=== PATIENT | male | born 1945 | race Caucasian/White ===

== ENCOUNTER 2017-06-01 06:10 | Inpatient (IN) | payer MEDICARE ==
[2017-06-01] MEDS ORDERED: PNEUMONIA PROTOCOL UTILIZED 1 EACH MISC PO PRN (06:24)
[2017-06-01] MEDS ORDERED: LEVOFLOXACIN 750MG-D5W PMX 750 MG in DEXTROSE/WATER 1 150ML.BAG IVPB STA (06:24)
--- NOTE | 2017-06-01 06:24 | ED ---
General Adult HPI - General Chief complaint: Shortness of Breath Stated complaint: cough, pneumonia Time Seen by Provider: 06/01/17 06:10 Source: patient, EMS, RN notes reviewed Mode of arrival: EMS Limitations: no limitations - History of Present Illness Initial comments: This is a 71-year-old male who presents to the emergency department from [facility]. Patient went in today because of difficulty breathing over the last month. Patient states he had no chest pain or palpitations. At the breathing seems to have gotten worse especially with exertion patient states had a temperature at home and he has been coughing considerably more recently. Patient denies any abdominal pain patient denies nausea vomiting diarrhea. The physician at [facility] stated the patient was in new onset A. fib with rapid ventricular response he also stated there was mild congestive heart failure and pneumonia on the x-ray. - Related Data Allergies Allergy/AdvReac Type Severity Reaction Status Date / Time No Known Allergies Allergy Verified 06/01/17 06:17 Review of Systems ROS Statement: Those systems with pertinent positive or pertinent negative responses have been documented in the HPI. ROS Other: All systems not noted in ROS Statement are negative. Past Medical History Additional Past Medical History / Comment(s): chron's disease. History of Any Multi-Drug Resistant Organisms: None Reported Past Surgical History: Hernia Repair, Tonsillectomy Additional Past Surgical History / Comment(s): lithotripsy, deviated septum, Past Psychological History: No Psychological Hx Reported Smoking Status: Former smoker Past Alcohol Use History: None Reported Past Drug Use History: None Reported General Exam - General Exam Comments Initial Comments: GENERAL: Patient is well-developed and well-nourished. Patient is nontoxic and well- hydrated and is in mild distress. ENT: Neck is soft and supple. No significant lymphadenopathy is noted. Oropharynx is clear. Moist mucous membranes. Neck has full range of motion without eliciting any pain. EYES: The sclera were anicteric and conjunctiva were pink and moist. Extraocular movements were intact and pupils were equal round and reactive to light. Eyelids were unremarkable. PULMONARY: Patient has a slight expiratory wheeze with some faint crackles at the bases. CARDIOVASCULAR: Patient is tachycardic. ABDOMEN: Soft and nontender with normal bowel sounds. No palpable organomegaly was noted. There is no palpable pulsatile mass. SKIN: Skin is clear with no lesions or rashes and otherwise unremarkable. NEUROLOGIC: Patient is alert and oriented x3. Cranial nerves II through XII are grossly intact. Motor and sensory are also intact. Normal speech, volume and content. Symmetrical smile. MUSCULOSKELETAL: Normal extremities with adequate strength and full range of motion. Scant edema of the legs. LYMPHATICS: No significant lymphadenopathy is noted PSYCHIATRIC: Normal psychiatric evaluation. Normal interpersonal interactions appears functionally intact in deals appropriately with others. Limitations: no limitations Course Vital Signs 06/01/17 06:10 Temperature 97.9 F Pulse Rate 99 Respiratory 20 Rate Blood Pressure 129/85 O2 Sat by Pulse 95 Oximetry Medical Decision Making - Medical Decision Making EKG shows sinus tachycardia with occasional PACs 114 bpm NC interval is on a 54 QRS is 86 QT interval 344 QTC is 474. I spoke with Dr. Martinez he agreed to admit the patient admitted the patient wrote admitting orders Disposition Clinical Impression: Congestive heart failure, Atrial fibrillation with rapid ventricular response, Pneumonia Disposition: ADMITTED IP TO THIS HOSP Referrals: Mauricio Keith MD [Primary Care Provider] - 1-2 days Time of Disposition: 06:20
[2017-06-01] MEDS ORDERED: ONDANSETRON 4 MG/2 ML VIAL IVP PRN (07:48)
[2017-06-01] MEDS ORDERED: MELATONIN 3 MG TABLET PO PRN (09:25)
[2017-06-01] MEDS ORDERED: ACETAMINOPHEN TAB 325 MG TAB PO PRN (09:25)
[2017-06-01] MEDS ORDERED: ALBUTEROL NEBULIZED 2.5 MG/3 ML INHALATION PRN (09:27)
[2017-06-01] MEDS ORDERED: RX INFO: IV CONTRAST WAS GIVEN 1 EACH MISC MISCELLANE PRN (09:57)
[2017-06-01] MEDS: DOXAZOSIN 4 MG TAB PO SCH ×2 (10:04→21:06)
[2017-06-01] MEDS: ASPIRIN 81 MG PO SCH (10:04)
[2017-06-01] MEDS: BALSALAZIDE DISODIUM 750 MG CAPSULE PO SCH ×3 (10:09→21:07)
--- NOTE | 2017-06-01 10:37 | P.CRDCN ---
History of Present Illness Consult date: 06/01/17 Requesting physician: Madhav Huertas Consult reason: atrial fibrillation, congestive heart failure Chief complaint: Shortness of breath History of present illness: This is a pleasant 71-year-old gentleman with no prior documented history of hypertension, no diabetes, no hyperlipidemia, nonsmoker, rare EtOH, history of Crohn's disease and enlarged prostate, who states as an outpatient he 's been dealing with symptoms of shortness of breath, fever, and productive cough of yellow sputum. He has gone to see his primary care physician as an outpatient, and has been on 2 courses of antibiotics along with steroids. In spite of this patient continues to feel short of breath, continues to have a productive cough as well as fever. For this reason he presented to [facility]. White blood cell count on arrival here 4.8, hemoglobin 11.5 , platelet count 153. Sodium 136, potassium 3.7, BUN 12, creatinine 1.0, magnesium 1.5. Troponin 0.03, BNP elevated at 7250. Chest x-ray performed at [facility] did show some congestive heart failure. Patient had an EKG performed [facility] which showed atrial fibrillation with a rapid ventricular response. According to the patient, he has no prior documented history of atrial fibrillation. EKG on arrival here shows normal sinus rhythm, sinus tachycardia with PACs. Blood pressure 128/80, heart rate in the 90s, 95% on room air. Afebrile. No labs were performed here. At the time of my examination this morning, patient has a nonrebreather on, he is satting 95%. Still appears to be quite short of breath. Continues to have productive cough. Past Medical History Past Medical History: Hearing Disorder / Deafness, Hypertension, Prostate Disorder, Renal Disease Additional Past Medical History / Comment(s): Chron's, nephrolithiasis, bilateral tinnitis, BPH, past HTN but none since wt loss. History of Any Multi-Drug Resistant Organisms: None Reported Past Surgical History: Hernia Repair, Tonsillectomy Additional Past Surgical History / Comment(s): lithotripsy, deviated septum, colonoscopies, umbilical and inguinal hernia repairs (laterality unknown). Past Anesthesia/Blood Transfusion Reactions: No Reported Reaction Smoking Status: Former smoker - Past Family History Father Family Medical History: Cancer, Congestive Heart Failure (CHF) Additional Family Medical History / Comment(s): Father had prostrate cancer. Mother Family Medical History: CVA/TIA Additional Family Medical History / Comment(s): Mother of a CVA at the age of 53yrs. Medications and Allergies Home Medications Medication Instructions Recorded Confirmed Type Albuterol Sulfate [Proair Hfa] 1 - 2 puff INHALATION RT-Q6H PRN 06/01/17 History Aspirin 81 mg PO DAILY 06/01/17 06/01/17 History Cholecalciferol (Vitamin D3) 2,000 unit PO DAILY 06/01/17 06/01/17 History [Vitamin D3] Codeine Phosphate/Guaifenesin 5 - 10 ml PO Q6H PRN 06/01/17 06/01/17 History [Cheratussin AC Syrup] Cyanocobalamin (Vitamin B-12) 2,000 mcg PO DAILY 06/01/17 06/01/17 History [Vitamin B-12] Doxazosin Mesylate [Doxazosin 4 mg PO BID 06/01/17 06/01/17 History Mesylate] Mesalamine [Pentasa] 1,000 mg PO QID 06/01/17 06/01/17 History Multivitamin [Men's Multi-Vitamin] 1 tab PO DAILY 06/01/17 06/01/17 History Soolantra 1 applic TOPICAL DAILY 06/01/17 06/01/17 History Allergies Allergy/AdvReac Type Severity Reaction Status Date / Time No Known Allergies Allergy Verified 06/01/17 06:51 Physical Exam Vitals: Vital Signs Temp Pulse Resp BP Pulse Ox 06/01/17 06:10 97.9 F 99 20 129/85 95 Intake and Output 05/31/17 06/01/17 06/01/17 22:59 06:59 14:59 Other: Weight 83.915 kg PHYSICAL EXAMINATION: HEENT: Head is atraumatic, normocephalic. Pupils equal, round. Neck is supple. There is elevated jugular venous pressure. HEART EXAMINATION: Heart S1, S2 normal. No murmur or gallop heard. CHEST EXAMINATION: Lungs reveal diminished air entry to bilateral bases, Rales noted to the bases. ABDOMEN: Soft, nontender. Bowel sounds are heard. No organomegaly noted. EXTREMITIES: 2+ peripheral pulses with no evidence of peripheral edema and no calf tenderness noted. NEUROLOGIC patient is awake, alert and oriented -3. . Results Current Medications Generic Name Dose Route Start Last Admin Trade Name Freq PRN Reason Stop Dose Admin Acetaminophen 650 mg 06/01/17 09:25 Tylenol Tab PO Q6HR PRN Mild Pain or Fever > 100.5 Hydrocodone Bitart/Acetaminophen 1 each 06/01/17 09:25 [place] 5-325 PO Q4HR PRN Moderate Pain Albuterol Sulfate 2.5 mg 06/01/17 09:27 Ventolin Nebulized INHALATION RT-QID PRN Shortness Of Breath Or Wheezing Albuterol/Ipratropium 3 ml 06/01/17 12:00 Duoneb 0.5 Mg-3 Mg/3 Ml Soln INHALATION RT-QID CHERYL Aspirin 81 mg 06/01/17 09:00 06/01/17 10:04 Aspirin PO 81 mg DAILY CHERYL Administration Balsalazide 2,250 mg 06/01/17 09:00 06/01/17 10:09 Colazal PO 2,250 mg TID [facility] Administration Cholecalciferol 2,000 unit 06/01/17 12:00 Vitamin D3 PO 1200 [facility] Cyanocobalamin 2,000 mcg 06/01/17 12:00 Vitamin B-12 PO 1200 [facility] Doxazosin Mesylate 4 mg 06/01/17 09:00 06/01/17 10:04 Cardura PO 4 mg BID [facility] Administration Enoxaparin Sodium 40 mg 06/02/17 09:00 Lovenox SQ DAILY [facility] Furosemide 20 mg 06/01/17 09:00 Lasix IV Q12HR [facility] Guaifenesin/Codeine Phosphate 10 ml 06/01/17 09:59 Robitussin Ac PO Q6H PRN Cough Levofloxacin 750 mg/ IV 150 mls @ 100 mls/hr 06/02/17 07:00 Solution IVPB 06/14/17 07:01 Q24H [facility] Melatonin 3 mg 06/01/17 09:25 Melatonin PO HS PRN Insomnia Methylprednisolone Sodium Succinate 40 mg 06/01/17 10:00 Solu-Medrol IV Q8HR [facility] Miscellaneous Information 1 each 06/01/17 06:24 Pneumonia Protocol Utilized PO ONCE PRN Per Protocol Miscellaneous Information 1 each 06/01/17 09:57 Rx Info: Iv Contrast Was Given MISCELLANE 06/03/17 09:59 DAILY PRN Per Protocol Multivitamins 1 each 06/01/17 12:00 Theragran PO 1200 CHERYL Ondansetron HCl 4 mg 06/01/17 07:48 06/01/17 08:03 Zofran IVP 4 mg Q6HR PRN Administration Nausea And Vomiting Pantoprazole Sodium 40 mg 06/02/17 07:30 Protonix PO AC-BRKFST CHERYL Intake and Output 05/31/17 06/01/17 06/01/17 22:59 06:59 14:59 Other: Weight 83.915 kg EKG Interpretations (text) Initial EKG at [facility] shows atrial fibrillation with rapid ventricular response. Repeat EKG performed on arrival here shows a sinus tachycardia. Assessment and Plan Plan: Assessment and plan #1 symptoms of progressively worsening shortness of breath, with associated productive cough of yellow sputum and fever, likely combination of possible tracheal bronchitis/pneumonia and congestive heart failure. LV function unknown. Chest x-ray [facility] shows congestive heart failure. BNP level in the 7000 range. #2 paroxysmal atrial fibrillation, currently in normal sinus rhythm. #3 Crohn's disease Plan We will obtain an echocardiogram with Doppler study. Patient is also currently on IV Lasix which we will continue. We will start the patient on a low-dose of beta billy. Further recommendations to follow. DNP note has been reviewed, I agree with a documented findings and plan of care. Patient was seen and examined.
--- NOTE | 2017-06-01 11:05 | P.PN ---
Progress Note - Text This is an addendum to the dictated cardiology consultation. The patient has no prior cardiac history and presented to [facility] emergency room with symptoms of progressive dyspnea. He was noted to be in atrial fibrillation and had findings consistent with CHF was an elevated BNP and an abnormal chest x-ray. He had recent upper respiratory infection and received 2 courses of antibiotics and steroids and in spite of that he had worsening dyspnea and persistent cough. He was not aware of the arrhythmia. He has no prior history of documented atrial fibrillation and he is back in sinus mechanism since presentation. He has no prior cardiac workup. He denies any history of PND, orthopnea or peripheral edema. He is quite active physically without any limitations. He has no significant cardiac risk factors and has not smoked in many years. His physical examination shows decrease air exchange, is in sinus mechanism and he has trace bilateral edema more noted on the right side. The patient presents with worsening dyspnea was findings consistent with CHF and paroxysmal atrial fibrillation. His symptoms may have been precipitated by an upper respiratory infection although the possibility of viral myocarditis cannot be totally excluded. An echocardiogram with Doppler will be obtained, beta billy will be added to his regimen and we will continue diuresis for 24 hours intravenously. Because of the symptoms of CHF and his age I would initiate treatment with anticoagulation. Depending on the results of his echo and the results of his workup the duration of anticoagulation would be further evaluated. Thank you for this consult we will follow with you.
[2017-06-01] MEDS: METOPROLOL TARTRATE 25 MG TAB PO SCH ×2 (11:15→21:06)
[2017-06-01] MEDS: methylPREDNISolone SOD SUCCI 40 MG/ML 1 ML VIAL IV SCH ×3 (11:15→23:59)
[2017-06-01] MEDS: FUROSEMIDE 10 MG/ML 2 ML VIAL IV SCH ×2 (11:15→21:06)
--- NOTE | 2017-06-01 12:42 | CT ---
EXAMINATION TYPE: CT chest angio for PE DATE OF EXAM: 06/01/2017 COMPARISON: Outside chest x-ray from earlier today HISTORY: SOB for [address] DLP: 581 mGycm. Automated Exposure Control for Dose Reduction was Utilized. CONTRAST: CTA scan of the thorax is performed with IV Contrast, patient injected with 100 mL of Isovue 370, pul monary embolism protocol. MIP Images are created on CT scanner and reviewed. FINDINGS: LUNGS: Moderate underlying emphysematous change is present most prominent in the apices. There are sm all bilateral pleural effusions confirmed. There is associated compressive atelectasis in both bases. Elevated left hemidiaphragm is redemonstrated. There is mild to moderate central peribronchial wall thickening likely product of underlying COPD. MEDIASTINUM: There is slightly suboptimal study, there is good opacification centrally without fillin g defect or embolism. There is poor flow of contrast involving segmental and subsegmental branches of the left lower lobe, PE cannot be excluded at this level. Visualized right lung and left upper lobe shows no evidence of pulmonary embolism . There are multiple enlarged thoracic lymph nodes including prevascular space, AP window, pericarinal, subcarinal, and bilateral hilar levels. Heart size is mild ly enlarged. No pericardial effusion is seen. OTHER: There is simple appearing 3.0 cm cyst posteriorly in the left kidney mid pole level axial imag e 151. There is moderate multilevel anterior and lateral spurring in the thoracic spine. Exaggerated thoracic kyphosis is noted. IMPRESSION: 1. Suboptimal evaluation of left lower lobe segmental and subsegmental branches otherwise no CT evide nce for pulmonary embolism. 2. Background of mild to moderate underlying emphysematous change. Correlate for CHF exacerbation as there is mild cardiomegaly with small bilateral pleural effusions. 3. Abnormal thoracic adenopathy, differential includes sarcoidosis, other granulomatous disease, and neoplasm such as lymphoma. Need to further investigate by bronchoscopy or PET/CT should be based on c linical correlation.
[2017-06-01] MEDS: CYANOCOBALAMIN 500 MCG TAB PO SCH (12:52)
[2017-06-01] MEDS: MULTIVITAMINS, THERA 1 EACH TAB PO SCH (12:52)
[2017-06-01] MEDS: CHOLECALCIFEROL 1,000 UNIT TAB PO SCH (12:52)
[2017-06-01] MEDS: IPRATROPIUM-ALBUTEROL 3 ML NEB INHALATION SCH ×3 (13:57→20:37)
--- NOTE | 2017-06-01 14:17 | P.HPIM ---
History of Present Illness H&P Date: 06/01/17 Chief Complaint: Shortness of breath Patient is a 71-year-old male with a past medical history of BPH, neuropathy, Crohn's disease, and nephrolithiasis who presented initially to [facility] with complaints of shortness of breath. There he underwent extensive evaluation. His found to be tachycardic on arrival in EKG showed A. fib with RVR. Initial laboratory analysis was unremarkable. On chest x-ray he was diagnosed with pneumonia. He was given a dose of antibiotics and metoprolol 5 mg IV push. Arrangements were made to transfer him here for cardiology evaluation. Repeat EKG here in the ER showed sinus tachycardia with PACs. Patient seen and examined at bedside. He complains of shortness of breath. He initially states it started a month ago and he was diagnosed with bronchitis. His PCP Dr. Ronen Keith put him on 2 courses of antibiotics and steroids. He felt much improved but never really returned back to baseline. He states that shortness of breath has been increasing. It is worse with exertion and better with rest. He had a fever last night at home with 102.4. He has a cough productive of yellow sputum. He has been coughing so hard he gets nauseous. He denies any overt chest pain but states it is sore when he takes a deep breath. He denies any palpitations. He has not fainted or passed out. Has not started or stopped any additional medications. He has chronic diarrhea related to his Crohn's disease. His also reports that he has episodes of apnea at night. He has no other complaints currently. His appetite has been decreased since last 3-4 days due to feeling fatigued. He denies any numbness or tingling down his arms or up in his jaw, he has not had any diaphoresis, he has not had any unusual headaches or changes in vision. He has had no strokelike symptoms. Review of Systems Pertinent positives and negatives as per HPI, remainder of 10 review of systems is negative. Past Medical History Past Medical History: Hearing Disorder / Deafness, Hypertension, Prostate Disorder, Renal Disease Additional Past Medical History / Comment(s): Chron's, nephrolithiasis, bilateral tinnitis, BPH, past HTN but none since wt loss. History of Any Multi-Drug Resistant Organisms: None Reported Past Surgical History: Hernia Repair, Tonsillectomy Additional Past Surgical History / Comment(s): lithotripsy, deviated septum, colonoscopies, umbilical and inguinal hernia repairs (laterality unknown). Past Anesthesia/Blood Transfusion Reactions: No Reported Reaction Smoking Status: Former smoker - Past Family History Father Family Medical History: Cancer, Congestive Heart Failure (CHF) Additional Family Medical History / Comment(s): Father had prostrate cancer. Mother Family Medical History: CVA/TIA Additional Family Medical History / Comment(s): Mother of a CVA at the age of 53yrs. Medications and Allergies Home Medications Medication Instructions Recorded Confirmed Type Albuterol Sulfate [Proair Hfa] 1 - 2 puff INHALATION RT-Q6H PRN 06/01/17 History Aspirin 81 mg PO DAILY 06/01/17 06/01/17 History Cholecalciferol (Vitamin D3) 2,000 unit PO DAILY 06/01/17 06/01/17 History [Vitamin D3] Codeine Phosphate/Guaifenesin 5 - 10 ml PO Q6H PRN 06/01/17 06/01/17 History [Cheratussin AC Syrup] Cyanocobalamin (Vitamin B-12) 2,000 mcg PO DAILY 06/01/17 06/01/17 History [Vitamin B-12] Doxazosin Mesylate [Doxazosin 4 mg PO BID 06/01/17 06/01/17 History Mesylate] Mesalamine [Pentasa] 1,000 mg PO QID 06/01/17 06/01/17 History Multivitamin [Men's Multi-Vitamin] 1 tab PO DAILY 06/01/17 06/01/17 History Soolantra 1 applic TOPICAL DAILY 06/01/17 06/01/17 History Allergies Allergy/AdvReac Type Severity Reaction Status Date / Time No Known Allergies Allergy Verified 06/01/17 06:51 Physical Exam Osteopathic Statement: *. No significant issues noted on an osteopathic structural exam other than those noted in the History and Physical/Consult. Vitals: Vital Signs Temp Pulse Resp BP Pulse Ox 06/01/17 06:10 97.9 F 99 20 129/85 95 Intake and Output 05/31/17 06/01/17 06/01/17 22:59 06:59 14:59 Other: Weight 83.915 kg General: non toxic, diaphoretic, mild distress, appears at stated age, normal weight Derm: no unusual rashes/lesions no unusual ecchymoses, warm, and his moist and diaphoretic, right arm with area of redness and swelling proximal to the IV site -IV will be removed and replaced Head: atraumatic, normocephalic, symmetric Eyes: EOMI, no lid lag, anicteric sclera, pupils equal round reactive to light ENT: Nose and ears atraumatic, no thrush, no pharyngeal erythema Neck: No thyromegaly, no cervical lymphadenopathy, trachea midline, supple Mouth: no lip lesion, mucus membranes moist Cardiovascular: S1-S2 irregularly irregular, no murmur, positive posterior tibial pulse bilateral, no edema, capillary refill less than 2 seconds Lungs: Coarse breath sounds bilaterally, no rhonchi, no rales , no accessory muscle use Abdominal: soft, nontender to palpation, no guarding, no appreciable organomegaly, normal bowel sounds Ext: no gross muscle atrophy, muscle strength 5 out of 5 in all 4 extremities grossly, no contractures, amputation right 2nd distal phalynx. Neuro: CN II-XI grossly intact, light touch intact all 4 extremities, finger to nose within normal limits, Psych: Alert, oriented, appropriate affect Results Comments: CXR as reviewed by myself- increased vascular marking, obscuring of the left heart border. EKG with sinus rhythm andfrequent PACs at [address]-T wave changes, normal intervals, normal axis Chest x-ray: report reviewed, image reviewed Thrombosis Risk Factor Assmnt - DVT/VTE Prophylaxis DVT/VTE Prophylaxis: Pharmacologic Prophylaxis ordered - Choose All That Apply Any of the Below Risk Factors Present?: Yes Each Factor Represents 1 point: Heart failure (<1month), Obesity (BMI >25), Serious lung disease incl. pneumonia (< 1month) Other Risk Factors: Yes Each Risk Factor Represents 2 Points: Age 61-74 years Other congenital or acquired thrombophilia - If yes, enter type in comment: No Thrombosis Risk Factor Assessment Total Risk Factor Score: 5 Thrombosis Risk Factor Assessment Level: High Risk Assessment and Plan Assessment: Bronchitis, Failed outpatient treatment - levaquin - solumedrol - bronchodilators - sputum CX - repeat CXR in AM - check CT of chest with unresolving symptoms A fib with RVR - EKG here show sinus with PACs - Tele - consult cardio - echo BPH - doxazosin Chron's disease - continue home medication regiment Surrogate decision-maker: - Quyen CODE STATUS:Full, no usp vent DVT prophylaxis: Lovenox Discussed with: Patient, family, nursing Anticipated discharge: 24-[address]: home A total of 60 minutes was spent on the care of this complex patient more than 50 % of the time was spent in counseling and care coordination.
[2017-06-01] MEDS ORDERED: RIVAROXABAN 20 MG TAB PO SCH (17:30)
[2017-06-01] MEDS: ENOXAPARIN 80 MG/0.8 ML SYRINGE SQ SCH (21:06)
[2017-06-02 06:09] LABS: HGB 12.3 gm/dL (13.0-17.5); MCH 28.5 pg (25.0-35.0); MCHC 32.4 g/dL (31.0-37.0); Mean Platelet Volume 8.7; Platelet Count 165 k/uL (150-450); RBC 4.32 m/uL (4.30-5.90); RDW 14.4 % (11.5-15.5); WBC 5.7 k/uL (3.8-10.6)
[2017-06-02] MEDS: PANTOPRAZOLE 40 MG TABLET PO SCH (06:24)
[2017-06-02 06:26] LABS: INR 1.3 (<1.2); Prothrombin Time 12.3 sec (9.0-12.0)
[2017-06-02 06:27] LABS: Calcium 8.7 mg/dL (8.4-10.2); Potassium 4.9 mmol/L (3.5-5.1)
[2017-06-02] MEDS ORDERED: LEVOFLOXACIN 750MG-D5W PMX 750 MG in DEXTROSE/WATER 1 150ML.BAG IVPB SCH (07:00)
[2017-06-02] MEDS: IPRATROPIUM-ALBUTEROL 3 ML NEB INHALATION SCH ×4 (07:58→20:41)
[2017-06-02] MEDS ORDERED: ENOXAPARIN 40 MG/0.4 ML SYRINGE SQ SCH (09:00)
[2017-06-02] MEDS: BALSALAZIDE DISODIUM 750 MG CAPSULE PO SCH ×3 (09:03→20:03)
[2017-06-02] MEDS: ASPIRIN 81 MG PO SCH (09:03)
[2017-06-02] MEDS: METOPROLOL TARTRATE 25 MG TAB PO SCH ×2 (09:04→20:03)
[2017-06-02] MEDS: ENOXAPARIN 80 MG/0.8 ML SYRINGE SQ SCH (09:04)
[2017-06-02] MEDS: DOXAZOSIN 4 MG TAB PO SCH ×2 (09:04→20:04)
[2017-06-02] MEDS: methylPREDNISolone SOD SUCCI 40 MG/ML 1 ML VIAL IV SCH ×2 (09:10→16:33)
[2017-06-02] MEDS: FUROSEMIDE 10 MG/ML 2 ML VIAL IV SCH ×2 (09:11→20:02)
--- NOTE | 2017-06-02 10:04 | ECHOF ---
Referral Reason:a fib CHF MEASUREMENTS -------- HEIGHT: 177.8 cm WEIGHT: 83.9 kg BP: 129/85 RVIDd: 4.5 cm (< 3.3) IVSd: 1.4 cm (0.6 - 1.1) LVIDd: 5.6 cm (3.9 - 5.3) LVPWd: 1.4 cm (0.6 - 1.1) IVSs: 1.8 cm LVIDs: 4.7 cm LVPWs: 1.7 cm LAESV Index (A-L): 57.18 ml/m Ao Diam: 3.8 cm (2.0 - 3.7) AV Cusp: 1.7 cm (1.5 - 2.6) LA Diam: 4.2 cm (2.7 - 3.8) MV E Tristan: 1.10 m/s MV DecT: 145 ms MV A Tristan: 0.46 m/s MV E/A Ratio: 2.38 RAP: 15.00 mmHg RVSP: 57.96 mmHg MV EF SLOPE: 176.90 mm/s (70 - 150) MV EXCURSION: 1.99 cm (> 18.000) FINDINGS -------- Sinus rhythm. This was a technically adequate study. The left ventricular size is normal. There is mild concentric left ventricular hypertrophy. There is severe global hypokinesis of LV . Overall left ventricular systolic function is severely impair ed with, an EF between 25 - 30 %. The right ventricle is moderately enlarged. LA is severely dilated >40 ml/m2 RA appears enlarged. Aortic valve is trileaflet and is moderately thickened. There is no evidence of aortic regurgitatio n. There is no evidence of aortic stenosis. The mitral valve leaflets are mildly thickened. Mild mitral annular calcification present. Modera [id number] mitral regurgitation is present. Moderate to severe tricuspid regurgitation present. There is moderate pulmonary hypertension. The right ventricular systolic pressure, as measured by Doppler, is 57.96mmHg. Trace/mild (physiologic) pulmonic regurgitation. The aortic root size is normal. The inferior vena cava is dilated with poor inspiratory collapse which is consistent with estimated r ight atrial pressure of 20 mmHg. There is no pericardial effusion. CONCLUSIONS -------- 1. Sinus rhythm. 2. This was a technically adequate study. 3. The left ventricular size is normal. 4. There is mild concentric left ventricular hypertrophy. 5. There is severe global hypokinesis of LV . 6. Overall left ventricular systolic function is severely impaired with, an EF between 25 - 30 %. 7. The right ventricle is moderately enlarged. 8. LA is severely dilated >40 ml/m2 9. RA appears enlarged. 10. Aortic valve is trileaflet and is moderately thickened. 11. The mitral valve leaflets are mildly thickened. 12. Mild mitral annular calcification present. 13. [id number] mitral regurgitation is present. 14. Moderate to severe tricuspid regurgitation present. 15. There is moderate pulmonary hypertension. 16. The right ventricular systolic pressure, as measured by Doppler, is 57.96mmHg. 17. Trace/mild (physiologic) pulmonic regurgitation. 18. The aortic root size is normal. 19. The inferior vena cava is dilated with poor inspiratory collapse which is consistent with estimat ed right atrial pressure of 20 mmHg. 20. There is no pericardial effusion. MERINGUER: Wilfrido Correa RDCS
--- NOTE | 2017-06-02 11:12 | P.PN ---
Subjective Progress Note Date: 06/02/17 Patient feeling better today, has not been very ambulatory, encouraged to walk the halls. No sign of any arrhythmia patient has been normal sinus with PACs. No acute events overnight Objective - Vital Signs Vital signs: Vital Signs Temp 97.0 F L 06/02/17 08:00 Pulse 80 06/02/17 08:08 Resp 16 06/02/17 08:00 BP 127/84 06/02/17 08:00 Pulse Ox 94 L 06/02/17 08:00 Intake & Output 06/01/17 06/02/17 06/02/17 18:59 06:59 18:59 Intake Total 730 10 240 Balance 730 10 240 Weight 87 kg Intake: IV 10 10 0.9 10 10 Oral 720 240 Other: Voiding Method Toilet Toilet Urinal Urinal # Voids 300 - Exam Constitutional: No acute distress, conversant, pleasant Eyes: Anicteric sclerae, moist conjunctiva, no lid-lag, PERRLA ENMT: NC/AT,Oropharynx clear, no erythema, exudates Neck:Supple, FROM, no masses, or JVD, No carotid bruits; No thyromegaly Lungs: Clear to auscultation, Clear to percussion, Normal respiratory effort, no accessory muscle use Cardiovascular: Heart regular in rate and rhythm, No murmurs, gallops, or rubs no peripheral edema Abdominal: Soft Nontender, nom distended, no guarding, no rebound or rigidity, Normoactive bowel sounds No hepatomegaly, No splenomegaly, No palpable mass No abdominal wall hernia noted Skin: Normal temperature, tone, texture, turgor, No induration No subcutaneous nodules, No rash, lesions, No ulcers Extremities:No digital cyanosis No clubbing, Pedal pulses intact and symmetrical Radial pulses intact and symmetrical Normal gait and station, No calf tenderness Psychiatric: Alert and oriented to person, place and time, Appropriate affect Intact judgement Neuro: Muscles Strength 5/5 in all 4 extremities, Sensation to light touch grossly present throughout, Cranial nerves II-XII grossly intact. No focal sensory deficits - Labs CBC & Chem 7: 06/02/17 05:31 06/02/17 05:31 Labs: Abnormal Lab Results - Last 24 Hours (Table) 06/02/17 06/02/17 06/02/17 Range/Units 05:31 05:31 05:31 Hgb 12.3 L (13.0-17.5) gm/dL Hct 38.0 L (39.0-53.0) % PT 12.3 H (9.0-12.0) sec INR 1.3 H (<1.2) Sodium 135 L (137-145) mmol/L BUN 23 H (9-20) mg/dL Glucose 158 H (74-99) mg/dL Microbiology - Last 24 Hours (Table) 06/01/17 08:03 Blood Culture - Preliminary Blood No Growth after 24 hours 06/01/17 07:54 Blood Culture - Preliminary Blood No Growth after 24 hours Assessment and Plan (1) Atrial fibrillation with rapid ventricular response Narrative/Plan: * Currently in normal sinus rhythm with PACs, paroxysmal A. fib has resolved * Continue with beta billy therapy with metoprolol, * Echocardiogram revealing severe systolic dysfunction with EF of 25-30%, with a severely dilated left atrium * Agree with continuing the patient on several toe for anticoagulation for stroke prophylaxis Current Visit: Yes Status: Resolved Code(s): I48.91 - UNSPECIFIED ATRIAL FIBRILLATION SNOMED Code(s): 993833494370633 (2) Systolic CHF, acute Narrative/Plan: * Severe cardiomyopathy EF of 25-30% * Continue with diuresis with Lasix 20 mg IV twice a day, continue with beta billy therapy will start low-dose DORIE inhibitor to optimize his medical therapy hopefully his blood pressure tolerates this Current Visit: Yes Status: Acute Code(s): I50.21 - ACUTE SYSTOLIC ( CONGESTIVE) HEART FAILURE SNOMED Code(s): 029266833 (3) Acute bronchitis Narrative/Plan: Bronchitis, Failed outpatient treatment -DC Levaquin and start Augmentin - solumedrol - bronchodilators - CT of the chest indicating emphysematous changes/mediastinal lymphadenopathy will consult pulmonary for further recommendations Current Visit: Yes Status: Acute Code(s): J20.9 - ACUTE BRONCHITIS, UNSPECIFIED SNOMED Code(s): 62746348
[2017-06-02] MEDS: MULTIVITAMINS, THERA 1 EACH TAB PO SCH (12:09)
[2017-06-02] MEDS: AMOXIC-POT CLAV 500-125 MG 1 EACH TAB PO SCH ×2 (12:09→20:04)
[2017-06-02] MEDS: CHOLECALCIFEROL 1,000 UNIT TAB PO SCH (12:09)
[2017-06-02] MEDS: CYANOCOBALAMIN 500 MCG TAB PO SCH (12:09)
[2017-06-02] MEDS: LISINOPRIL 10 MG TAB PO SCH (12:09)
[2017-06-02] MEDS ORDERED: SODIUM CHLORIDE 0.9% 1,000 ML in EMPTY BAG 1 BAG IV ONE (13:11)
[2017-06-02] MEDS ORDERED: ATORVASTATIN 80 MG TAB PO STA (13:11)
[2017-06-02] MEDS ORDERED: ALPRAZolam 0.25 MG TAB PO PRN (13:11)
[2017-06-02] MEDS ORDERED: NITROGLYCERIN SL TABS 0.4 MG TAB SUBLINGUAL PRN (13:11)
[2017-06-02] MEDS ORDERED: ALPRAZolam 0.5 MG TAB PO PRN (13:11)
[2017-06-02] MEDS ORDERED: ASPIRIN 325 MG TAB PO STA (13:11)
--- NOTE | 2017-06-02 13:43 | XR ---
EXAMINATION TYPE: XR chest 2V DATE OF EXAM: 06/02/2017 COMPARISON: Prior chest x-ray from is an institution 06/01/2017 HISTORY: Pneumonia TECHNIQUE: Frontal and lateral views of the chest are obtained. FINDINGS: Interstitium remains prominent. Heart is enlarged. No evident pneumothorax. Increased AP d iameter of the chest could be indicative of COPD. Blunting of the posterior costophrenic angles is pr esent compatible small effusions. IMPRESSION: Findings compatible with pulmonary venous hypertension and interstitial edema in a patie nt with pre-existing COPD. Small pleural effusions. Follow-up recommended.
--- NOTE | 2017-06-02 14:44 | P.PN ---
Subjective Progress Note Date: 06/02/17 This is a pleasant 71-year-old gentleman with no prior documented history of hypertension, no diabetes, no hyperlipidemia, nonsmoker, rare EtOH, history of Crohn's disease and enlarged prostate, who states as an outpatient he 's been dealing with symptoms of shortness of breath, fever, and productive cough of yellow sputum. He has gone to see his primary care physician as an outpatient, and has been on 2 courses of antibiotics along with steroids. In spite of this patient continues to feel short of breath, continues to have a productive cough as well as fever. For this reason he presented to [facility]. White blood cell count on arrival here 4.8, hemoglobin 11.5 , platelet count 153. Sodium 136, potassium 3.7, BUN 12, creatinine 1.0, magnesium 1.5. Troponin 0.03, BNP elevated at 7250. Chest x-ray performed at [facility] did show some congestive heart failure. Patient had an EKG performed [facility] which showed atrial fibrillation with a rapid ventricular response. According to the patient, he has no prior documented history of atrial fibrillation. EKG on arrival here shows normal sinus rhythm, sinus tachycardia with PACs. Blood pressure 128/80, heart rate in the 90s, 95% on room air. Afebrile. No labs were performed here. At the time of my examination this morning, patient has a nonrebreather on, he is satting 95%. Still appears to be quite short of breath. Continues to have productive cough. 06/02/2017 Patient was diuresed through the night on IV Lasix, overall is feeling significantly better today. White blood cell count 5.7, hemoglobin 12.3, platelet count 165. Sodium 135, potassium 4.9, BUN 23, creatinine 1.2. BNP level 6190, TSH 2.5. An echocardiogram with Doppler study was performed which revealed an ejection fraction of 25-30%. Severe global hypokinesia noted. Moderate to severe MR, moderate to severe TR. The results of this were explained to the patient in detail, he was advised to undergo cardiac catheterization to rule out underlying coronary artery disease. The risks and the benefits were explained to the patient and his in detail, this will be performed tomorrow by Dr. Perry. Objective - Vital Signs Vital signs: Vital Signs Temp 97.5 F L 06/02/17 11:05 Pulse 76 06/02/17 11:51 Resp 16 06/02/17 11:05 BP 127/81 06/02/17 11:05 Pulse Ox 96 06/02/17 11:05 Intake & Output 06/01/17 06/02/17 06/02/17 18:59 06:59 18:59 Intake Total 730 10 870 Balance 730 10 870 Weight 87 kg Intake: IV 10 10 0.9 10 10 Intake, IV Titration 150 Amount Levofloxacin 750Mg-D5w 150 Pmx 750 mg In Dextrose/ Water 1 150ml.bag @ 100 mls/hr IVPB Q24H [facility] Rx#: [id number] Oral 720 720 Other: Voiding Method Toilet Toilet Toilet Urinal Urinal Urinal # Voids 300 - Exam PHYSICAL EXAMINATION: HEENT: Head is atraumatic, normocephalic. Pupils equal, round. Neck is supple. There is no elevated jugular venous pressure. HEART EXAMINATION: Heart S1 and S2 systolic murmur is heard CHEST EXAMINATION: Lungs are clear to auscultation and precussion. No chest wall tenderness is noted on palpation or with deep breathing. ABDOMEN: Soft, nontender. Bowel sounds are heard. No organomegaly noted. EXTREMITIES: 2+ peripheral pulses with no evidence of peripheral edema and no calf tenderness noted. NEUROLOGIC patient is awake, alert and oriented -3. . - Labs CBC & Chem 7: 06/02/17 05:31 06/02/17 05:31 Labs: Abnormal Lab Results - Last 24 Hours (Table) 06/02/17 06/02/17 06/02/17 Range/Units 05:31 05:31 05:31 Hgb 12.3 L (13.0-17.5) gm/dL Hct 38.0 L (39.0-53.0) % PT 12.3 H (9.0-12.0) sec INR 1.3 H (<1.2) Sodium 135 L (137-145) mmol/L BUN 23 H (9-20) mg/dL Glucose 158 H (74-99) mg/dL Microbiology - Last 24 Hours (Table) 06/01/17 08:03 Blood Culture - Preliminary Blood No Growth after 24 hours 06/01/17 07:54 Blood Culture - Preliminary Blood No Growth after 24 hours Assessment and Plan Plan: Assessment and plan #1 symptoms of progressively worsening shortness of breath, with associated productive cough of yellow sputum and fever, likely combination of possible tracheal bronchitis/pneumonia and congestive heart failure. LV function unknown. Chest x-ray [facility] shows congestive heart failure. BNP level in the 7000 range. #2 paroxysmal atrial fibrillation, currently in normal sinus rhythm. #3 Crohn's disease Plan We will continue current dose of IV Lasix, continue the rest of the patient's medications as well. Patient will be started on xarelto, however we will defer starting that until after the cardiac catheterization tomorrow. Further recommendations will be based on these findings and patient's clinical course. DNP note has been reviewed, I agree with a documented findings and plan of care. Patient was seen and examined.
--- NOTE | 2017-06-02 16:08 | P.CNPUL ---
History of Present Illness Consult date: 06/02/17 Requesting physician: Madhav Huertas Reason for consult: dyspnea, abnormal CXR/CT Chief complaint: Shortness of breath, cough, congestion History of present illness: This is a very pleasant 71-year-old gentleman who follows with Dr. Mauricio Keith as his primary care physician. He has history of Crohn's disease, nephrolithiasis status post lithotripsy him a BPH, hypertension, tinnitus. He has has a history of previous tobacco dependence and suspected COPD. He has not been seen by a smasher hand in the past. He had been having ongoing issues with shortness of breath, yellow productive sputum. He had been treated for bronchitis 2 with antibiotics and steroids. Never quite back to his baseline. He did have a fever of 102.4. He presented to the emergency room at [facility] with increasing shortness of breath, cough, congestion palpitations. He was found to be in atrial fibrillation with a rapid ventricular response and was subsequently transferred here to [facility] yesterday morning. His chest x-ray did reveal evidence of fluid volume overload and congestive heart failure. An echocardiogram revealed severely impaired left ventricular systolic function with ejection fraction 25-30%. There is also noted severe global hypokinesia. He has moderate to severe mitral regurgitation. Moderate to severe tricuspid regurgitation. Moderate pulmonary hypertension with an RVSP of 57.96 mmHg. ProBNP 6190. Creatinine 1.20. He has been initiated on Lasix 20 mg IV push every 12 hours. He is seen today in consultation on the selective care unit. He is currently sitting up in a chair at the bedside. He is awake and alert in no acute distress. He is breathing easier today as compared to yesterday. He is maintaining good O2 saturations in the 90s on room air. He has since converted back to normal sinus rhythm. He is afebrile. No fever chills or night sweats. No productive cough. The cultures reveal no growth to date. He has been initiated on Xarelto. He is also on bronchodilators, IV Solu-Medrol and antibiotics in the form of Augmentin. Review of Systems Constitutional: Reports fatigue, Reports malaise, Reports night sweats Eyes: denies blurred vision, denies decreased vision Ears: bilateral: decreased hearing Ears, nose, mouth and throat: Reports headache, Reports nasal discharge Cardiovascular: Reports dyspnea on exertion, Reports irregular heart beat, Reports palpitations, Reports shortness of breath Respiratory: Reports cough with sputum, Reports dyspnea, Reports wheezing Gastrointestinal: Reports diarrhea Genitourinary: Reports as per HPI Musculoskeletal: Reports as per HPI Integumentary: Denies pruritus, Denies rash Neurological: Denies numbness, Denies weakness Psychiatric: Denies anxiety, Denies depression Endocrine: Denies fatigue, Denies weight change Hematologic/Lymphatic: Reports as per HPI Past Medical History Past Medical History: Hearing Disorder / Deafness, Hypertension, Prostate Disorder, Renal Disease Additional Past Medical History / Comment(s): Crohn's disease, nephrolithiasis, BPH, hypertension, COPD, tinnitus bilateral along with hearing impairment. History of Any Multi-Drug Resistant Organisms: None Reported Past Surgical History: Hernia Repair, Tonsillectomy Additional Past Surgical History / Comment(s): lithotripsy, deviated septum, colonoscopies, umbilical and inguinal hernia repairs (laterality unknown). Past Anesthesia/Blood Transfusion Reactions: No Reported Reaction Smoking Status: Former smoker - Past Family History Father Family Medical History: Cancer, Congestive Heart Failure (CHF) Additional Family Medical History / Comment(s): Father had prostrate cancer. Mother Family Medical History: CVA/TIA Additional Family Medical History / Comment(s): Mother of a CVA at the age of 53yrs. Medications and Allergies Home Medications Medication Instructions Recorded Confirmed Type Albuterol Sulfate [Proair Hfa] 1 - 2 puff INHALATION RT-Q6H PRN 06/01/17 History Aspirin 81 mg PO DAILY 06/01/17 06/01/17 History Cholecalciferol (Vitamin D3) 2,000 unit PO DAILY 06/01/17 06/01/17 History [Vitamin D3] Codeine Phosphate/Guaifenesin 5 - 10 ml PO Q6H PRN 06/01/17 06/01/17 History [Cheratussin AC Syrup] Cyanocobalamin (Vitamin B-12) 2,000 mcg PO DAILY 06/01/17 06/01/17 History [Vitamin B-12] Doxazosin Mesylate [Doxazosin 4 mg PO BID 06/01/17 06/01/17 History Mesylate] Mesalamine [Pentasa] 1,000 mg PO QID 04/16/18 04/16/18 History Multivitamin [Men's Multi-Vitamin] 1 tab PO DAILY 06/01/17 06/01/17 History Soolantra 1 applic TOPICAL DAILY 06/01/17 06/01/17 History Allergies Allergy/AdvReac Type Severity Reaction Status Date / Time No Known Allergies Allergy Verified 06/01/17 06:51 Physical Exam Vitals: Vital Signs Temp Pulse Pulse Resp BP BP Pulse Ox 06/02/17 11:51 76 06/02/17 11:42 76 06/02/17 11:05 97.5 F L 88 16 127/81 96 06/02/17 08:45 16 06/02/17 08:08 80 06/02/17 08:00 97.0 F L 79 16 127/84 94 L 06/02/17 07:58 76 06/02/17 04:00 97.0 F L 77 18 112/74 93 L 06/02/17 00:00 97.4 F L 91 18 128/87 93 L 06/01/17 20:00 97.0 F L 85 18 124/91 94 L 06/01/17 16:00 96.7 F L 81 18 112/78 92 L Intake and Output 06/02/17 06/02/17 06/02/17 06:59 14:59 22:59 Intake Total 10 870 Balance 10 870 Intake: IV 10 0.9 10 Intake, IV Titration 150 Amount Levofloxacin 750Mg-D5w 150 Pmx 750 mg In Dextrose/ Water 1 150ml.bag @ 100 mls/hr IVPB Q24H [facility] Rx#: [id number] Oral 720 Other: Voiding Method Toilet Toilet Urinal Urinal Weight 87 kg 87 kg GENERAL EXAM: Alert, active, comfortable in no apparent distress. HEAD: Normocephalic. EYES: Normal reaction of pupils, equal size. NOSE: Clear with pink turbinates. THROAT: No erythema or exudates. NECK: No masses, no JVD. CHEST: No chest wall deformity. LUNGS: Equal air entry with echoes in the posterior bases. Diminished. CVS: S1 and S2 normal with an audible murmur, regular rhythm. ABDOMEN: No hepatosplenomegaly, normal bowel sounds, no guarding or rigidity. SPINE: No scoliosis or deformity SKIN: No rashes CENTRAL NERVOUS SYSTEM: No focal deficits, tone is normal in all 4 extremities. EXTREMITIES: There is trace peripheral edema. No clubbing, no cyanosis. Peripheral pulses are intact. Results - Laboratory Findings CBC and BMP: 06/02/17 05:31 06/02/17 05:31 PT/INR, D-dimer PT 12.3 sec (9.0-12.0) H 06/02/17 05:31 INR 1.3 (<1.2) H 06/02/17 05:31 Abnormal lab findings: Abnormal Labs 06/02/17 06/02/17 06/02/17 05:31 05:31 05:31 Hgb 12.3 L Hct 38.0 L PT 12.3 H INR 1.3 H Sodium 135 L BUN 23 H Glucose 158 H - Diagnostic Findings Chest x-ray: image reviewed Assessment and Plan Assessment: Impression: #1 Acute exacerbation of systolic congestive heart failure in a patient found to have a severe global hypokinesia and severely impaired left ventricular systolic function with estimated ejection fraction 25-30%. #2 New-onset atrial fibrillation with rapid ventricular response. Currently in a normal sinus rhythm. Anticoagulated with Xarelto. #3 Moderate pulmonary hypertension. #4 Valvular heart disease. #5 Acute exacerbation of her suspected chronic obstructive pulmonary disease complicated by purulent tracheobronchitis. #6 History of previous tobacco dependence. #7 Hypertension. #8 Crohn's disease. #9 History of nephrolithiasis status post lithotripsy. #10 Tinnitus. #11 Hearing disorder. #12 Bilateral tinnitus. Plan: The patient was seen and evaluated by Dr. Kuhn. His chest x-rays, labs were reviewed. Mostly a picture of systolic congestive heart failure worsened by atrial fibrillation with a rapid ventricular response. The patient will also be treated for suspected acute exacerbation of chronic obstructive pulmonary disease. Continue bronchodilators, IV Solu-Medrol. Antibiotics. He would benefit from a workup in our office including full pulmonary function testing to evaluate the severity of his suspected COPD and make recommendations for her maintenance medications. In the interim, we'll continue with his current treatment plan. Cardiology is on the case as well. Continue diuretics. We will increase his activity as tolerated. He remains anticoagulated with Xarelto. Protonix for GI prophylaxis. We will continue to follow and make further recommendations based on his clinical status. I, the cosigning physician, performed a history & physical examination of the patient. Lungs sounds with crackles in the bilateral posterior bases. Diminished. Maintaining good O2 saturations in the 90s on room air. I discussed the assessment and plan of care with my nurse practitioner, Jory Camacho. I attest to the above note as dictated by her.
[2017-06-02] MEDS: RIVAROXABAN 20 MG TAB PO SCH (16:26)
--- NOTE | 2017-06-02 20:21 | P.CNPUL ---
History of Present Illness Consult date: 06/01/17 Reason for consult: dyspnea History of present illness: Extremity 11-year-old male patient presented to the emergency department at [facility] for increased shortness of breath. The patient was found to be tachycardic upon arrival with a chief fibrillation rhythm and rapid ventricular response. The patient was given IV metoprolol. At the same time was diagnosed having a pneumonia based abnormal chest x-ray and the patient got transferred to [facility]. The patient was complaining of shortness of breath. He also had increased cough and congestion. He was receiving antibiotics on outpatient basis with steroids to his primary care physician that helped his breathing however he does not have any significant recovery. He was having exertional dyspnea. He had a temperature of 102.4 last night and he was also producing cough with productive yellowish sputum. No hemoptysis. No pleurisy. He had some increased nausea. No episodes of angina. No syncope. No lightheadedness or dizziness. He has history of chronic diarrhea related to Crohn's disease. A CT angios the chest was done today that was suboptimal for pulmonary embolism. His underlying [id number] COPD and some mild cardiomegaly and small better pleural effusions. There is also abnormal thoracic adenopathy with enlarged lymph nodes in the prevascular space , AP window, precarinal and subcarinal and bilateral hilar area. The patient is currently on a combination of breath bronchodilators and he is receiving DuoNeb nebulized treatments around the clock, IV Solu Medrol 40 mg every 8 hours , IV Lasix 20 mg every 12 hours. Review of Systems Constitutional: Denies chills, Denies fever Eyes: denies blurred vision, denies bulging eye, denies decreased vision Ears: deny: decreased hearing, ear discharge, earache Ears, nose, mouth and throat: Denies headache, Denies sore throat Cardiovascular: Reports decreased exercise tolerance, Reports dyspnea on exertion, Reports irregular heart beat, Reports shortness of breath Respiratory: Reports dyspnea Gastrointestinal: Denies abdominal pain, Denies diarrhea, Denies nausea, Denies vomiting Genitourinary: Reports as per HPI Musculoskeletal: Denies myalgias Musculoskeletal: absent: ankle pain, ankle stiffness, ankle swelling Integumentary: Denies pruritus, Denies rash Neurological: Denies numbness, Denies weakness Psychiatric: Denies anxiety, Denies depression Endocrine: Denies fatigue, Denies weight change Hematologic/Lymphatic: Reports as per HPI Allergic/Immunologic: Reports as per HPI Past Medical History Past Medical History: Hearing Disorder / Deafness, Hypertension, Prostate Disorder, Renal Disease Additional Past Medical History / Comment(s): Crohn's disease, nephrolithiasis, BPH, hypertension, COPD, tinnitus bilateral along with hearing impairment. History of Any Multi-Drug Resistant Organisms: None Reported Past Surgical History: Hernia Repair, Tonsillectomy Additional Past Surgical History / Comment(s): lithotripsy, deviated septum, colonoscopies, umbilical and inguinal hernia repairs (laterality unknown). Past Anesthesia/Blood Transfusion Reactions: No Reported Reaction Smoking Status: Former smoker - Past Family History Father Family Medical History: Cancer, Congestive Heart Failure (CHF) Additional Family Medical History / Comment(s): Father had prostrate cancer. Mother Family Medical History: CVA/TIA Additional Family Medical History / Comment(s): Mother of a CVA at the age of 53yrs. Medications and Allergies Home Medications Medication Instructions Recorded Confirmed Type Albuterol Sulfate [Proair Hfa] 1 - 2 puff INHALATION RT-Q6H PRN 06/01/17 History Aspirin 81 mg PO DAILY 06/01/17 06/01/17 History Cholecalciferol (Vitamin D3) 2,000 unit PO DAILY 06/01/17 06/01/17 History [Vitamin D3] Codeine Phosphate/Guaifenesin 5 - 10 ml PO Q6H PRN 06/01/17 06/01/17 History [Cheratussin AC Syrup] Cyanocobalamin (Vitamin B-12) 2,000 mcg PO DAILY 06/01/17 06/01/17 History [Vitamin B-12] Doxazosin Mesylate [Doxazosin 4 mg PO BID 06/01/17 06/01/17 History Mesylate] Mesalamine [Pentasa] 1,000 mg PO QID 06/01/17 06/01/17 History Multivitamin [Men's Multi-Vitamin] 1 tab PO DAILY 06/01/17 06/01/17 History Soolantra 1 applic TOPICAL DAILY 06/01/17 06/01/17 History Allergies Allergy/AdvReac Type Severity Reaction Status Date / Time No Known Allergies Allergy Verified 06/01/17 06:51 Physical Exam Vitals: Vital Signs Temp Pulse Pulse Resp BP BP Pulse Ox 06/01/17 14:10 72 06/01/17 13:58 70 06/01/17 12:18 96.9 F L 74 18 104/66 99 06/01/17 08:00 99.8 F H 104 H 18 99/56 94 L 06/01/17 06:10 97.9 F 99 20 129/85 95 Intake and Output 06/01/17 06/01/17 06/01/17 06:59 14:59 22:59 Intake Total 480 Balance 480 Intake: Oral 480 Other: Weight 83.915 kg Gen. appearance the patient is calm and comfortable likely distress HEENT: Head is atraumatic, normocephalic. Pupils equal, round. Neck is supple. There is elevated jugular venous pressure. HEART EXAMINATION: Heart S1, S2 normal. No murmur or gallop heard. CHEST EXAMINATION: Lungs reveal diminished air entry to bilateral bases, Rales noted to the bases. ABDOMEN: Soft, nontender. Bowel sounds are heard. No organomegaly noted. EXTREMITIES: 2+ peripheral pulses with no evidence of peripheral edema and no calf tenderness noted. NEUROLOGIC patient is awake, alert and oriented -3. Examination of the skin revealed no evidence of significant rashes, suspicious appearing nevi or other concerning lesions. Results - Diagnostic Findings CT scan - chest: image reviewed Assessment and Plan Plan: Assessment 1 shortness of breath secondary to a combination of COPD and CHF exacerbation 2 diffuse emphysema with centrilobular changes as evident on the CAT scan of the chest 3 bilateral pleural effusion, small, right more than left, likely related to CHF 4 atrial fibrillation ablation with rapid ventricular response, currently rhythm is sinus 5 CHF suspected him a rule out underlying systolic dysfunction 6 BPH 7 Crohn's disease 8 hypertension 9 nephrolithiasis Plan Agree on the current treatment. Continue DuoNeb about treatments around the clock. Continue IV Lasix. Continue IV Solu Medrol. Continue PEG antibiotic coverage with IV Lasix. Echocardiogram. Heparin subcu on Lovenox for DVT prophylaxis. Cardiology consultation. We'll continue to follow.
[2017-06-03] MEDS ORDERED: methylPREDNISolone SOD SUCCI 125 MG/2 ML VIAL ONE
[2017-06-03] MEDS ORDERED: ATORVASTATIN 80 MG TAB PO ONE (05:00)
[2017-06-03] MEDS ORDERED: SODIUM CHLORIDE 0.9% 1,000 ML in EMPTY BAG 1 BAG IV ONE (05:00)
[2017-06-03] MEDS ORDERED: ASPIRIN 325 MG TAB PO ONE (05:00)
[2017-06-03] MEDS: methylPREDNISolone SOD SUCCI 40 MG/ML 1 ML VIAL IV SCH ×2 (05:34→10:44)
[2017-06-03 06:01] LABS: HCT 33.1 % (39.0-53.0); HGB 10.9 gm/dL (13.0-17.5); MCH 28.4 pg (25.0-35.0); MCV 85.9 fL (80.0-100.0); Platelet Count 185 k/uL (150-450); RBC 3.86 m/uL (4.30-5.90); RDW 14.4 % (11.5-15.5); WBC 9.7 k/uL (3.8-10.6)
[2017-06-03] MEDS: PANTOPRAZOLE 40 MG TABLET PO SCH (06:09)
[2017-06-03 06:27] LABS: Calcium 8.5 mg/dL (8.4-10.2); Potassium 4.1 mmol/L (3.5-5.1)
[2017-06-03] MEDS: IPRATROPIUM-ALBUTEROL 3 ML NEB INHALATION SCH ×4 (08:01→19:26)
[2017-06-03] MEDS ORDERED: VERAPAMIL 2.5 MG/ML 2 ML AMP ONE (08:34)
[2017-06-03] MEDS ORDERED: LIDOCAINE 2% INJ 20 MG/ML (20 ML MDV) ONE (08:34)
[2017-06-03] MEDS ORDERED: fentaNYL (PF) 50 MCG/ML 2 ML AMP ONE (08:52)
[2017-06-03] MEDS ORDERED: fentaNYL (PF) 50 MCG/ML 2 ML AMP IV ONE (09:14)
[2017-06-03] MEDS ORDERED: IV FLUID CONTINUATION 900 ML IV ONE (09:14)
[2017-06-03] MEDS ORDERED: LIDOCAINE 2% INJ 20 MG/ML SQ ONE (09:17)
[2017-06-03] MEDS ORDERED: VERAPAMIL SYRINGE (5 MG/10 ML) INTRAARTER ONE (09:21)
[2017-06-03] MEDS ORDERED: HEPARIN SODIUM 1,000 UN/ML (10ML VL) ONE (09:22)
[2017-06-03] MEDS: HEPARIN SODIUM 1,000 UN/ML (10ML VL) IV ONE ×2 (09:23→09:38)
[2017-06-03] MEDS ORDERED: IOPAMIDOL-370 125ML BTL INJ ONE (09:47)
[2017-06-03] MEDS ORDERED: IOPAMIDOL-370 100ML BTL INJ ONE ×2 (09:48)
[2017-06-03] MEDS ORDERED: NITROGLYCERIN 1000MCG/10ML SYRINGE INTRACORON ONE (10:06)
[2017-06-03] MEDS ORDERED: ADENOSINE 90 MG in SODIUM CHLORIDE 0.9% 60 ML IVP ONE (10:13)
[2017-06-03] MEDS ORDERED: RX INFO: IV CONTRAST WAS GIVEN 1 EACH MISC MISCELLANE PRN (10:24)
[2017-06-03] MEDS ORDERED: SODIUM CHLORIDE 0.9% 1,000 ML IV SCH (10:30)
[2017-06-03] MEDS: METOPROLOL TARTRATE 25 MG TAB PO SCH ×2 (10:44→20:22)
[2017-06-03] MEDS: MULTIVITAMINS, THERA 1 EACH TAB PO SCH (10:44)
[2017-06-03] MEDS: CYANOCOBALAMIN 500 MCG TAB PO SCH (10:44)
[2017-06-03] MEDS: CHOLECALCIFEROL 1,000 UNIT TAB PO SCH (10:44)
[2017-06-03] MEDS: AMOXIC-POT CLAV 500-125 MG 1 EACH TAB PO SCH ×2 (10:45→20:22)
[2017-06-03] MEDS: BALSALAZIDE DISODIUM 750 MG CAPSULE PO SCH ×3 (10:45→20:22)
[2017-06-03] MEDS: FUROSEMIDE 10 MG/ML 2 ML VIAL IV SCH (12:11)
--- NOTE | 2017-06-03 13:04 | P.PN ---
Subjective Progress Note Date: 06/03/17 Principal diagnosis: Coronary artery disease This is a very pleasant 71-year-old gentleman who follows with Dr. Mauricio Keith as his primary care physician. He has history of Crohn's disease, nephrolithiasis status post lithotripsy him a BPH, hypertension, tinnitus. He has has a history of previous tobacco dependence and suspected COPD. He has not been seen by a supplier manager in the past. He had been having ongoing issues with shortness of breath, yellow productive sputum. He had been treated for bronchitis 2 with antibiotics and steroids. Never quite back to his baseline. He did have a fever of 102.4. He presented to the emergency room at [facility] with increasing shortness of breath, cough, congestion palpitations. He was found to be in atrial fibrillation with a rapid ventricular response and was subsequently transferred here to [facility] yesterday morning. His chest x-ray did reveal evidence of fluid volume overload and congestive heart failure. An echocardiogram revealed severely impaired left ventricular systolic function with ejection fraction 25-30%. There is also noted severe global hypokinesia. He has moderate to severe mitral regurgitation. Moderate to severe tricuspid regurgitation. Moderate pulmonary hypertension with an RVSP of 57.96 mmHg. ProBNP 6190. Creatinine 1.20. He has been initiated on Lasix 20 mg IV push every 12 hours. He is seen today in consultation on the selective care unit. He is currently sitting up in a chair at the bedside. He is awake and alert in no acute distress. He is breathing easier today as compared to yesterday. He is maintaining good O2 saturations in the 90s on room air. He has since converted back to normal sinus rhythm. He is afebrile. No fever chills or night sweats. No productive cough. The cultures reveal no growth to date. He has been initiated on Xarelto. He is also on bronchodilators, IV Solu-Medrol and antibiotics in the form of Augmentin. The patient is seen again today 06/03/2017 in follow-up on the selective care unit. He is currently resting comfortably in bed. He did undergo cardiac catheterization this morning. Report is pending. Further interventions are being discussed. He denies any shortness of breath currently. No chest pain or palpitations. He is currently maintaining good O2 saturations in the 90s on room air. He is hemodynamically stable. Blood and sputum cultures reveal no growth to date. White count 9.7. Hemoglobin 10.9. Creatinine 1.41. He is currently on bronchodilators, IV Solu-Medrol, Augmentin. Xarelto currently on hold. Objective - Vital Signs Vital signs: Vital Signs Temp 97.1 F L 06/03/17 10:39 Pulse 68 06/03/17 12:09 Resp 16 06/03/17 12:09 BP 128/68 06/03/17 12:09 Pulse Ox 93 L 06/03/17 12:09 Intake & Output 06/02/17 06/03/17 06/03/17 18:59 06:59 18:59 Intake Total 1050 240 323.6 Balance 1050 240 323.6 Weight 87 kg 86.2 kg Intake: IV 323.6 Intake, IV Titration 150 Amount Levofloxacin 750Mg-D5w 150 Pmx 750 mg In Dextrose/ Water 1 150ml.bag @ 100 mls/hr IVPB Q24H [facility] Rx#: [id number] Oral 900 240 Other: Voiding Method Toilet Toilet Toilet Urinal Urinal Urinal # Voids 2 - Exam GENERAL EXAM: Alert, active, comfortable in no apparent distress. HEAD: Normocephalic. EYES: Normal reaction of pupils, equal size. NOSE: Clear with pink turbinates. THROAT: No erythema or exudates. NECK: No masses, no JVD. CHEST: No chest wall deformity. LUNGS: Equal air entry with echoes in the posterior bases. Diminished. CVS: S1 and S2 normal with an audible murmur, regular rhythm. ABDOMEN: No hepatosplenomegaly, normal bowel sounds, no guarding or rigidity. SPINE: No scoliosis or deformity SKIN: No rashes CENTRAL NERVOUS SYSTEM: No focal deficits, tone is normal in all 4 extremities. EXTREMITIES: There is trace peripheral edema. No clubbing, no cyanosis. Peripheral pulses are intact. - Labs CBC & Chem 7: 06/03/17 05:34 06/03/17 05:34 Labs: Abnormal Lab Results - Last 24 Hours (Table) 06/03/17 06/03/17 Range/Units 05:34 05:34 RBC 3.86 L (4.30-5.90) m/uL Hgb 10.9 L (13.0-17.5) gm/dL Hct 33.1 L (39.0-53.0) % Carbon Dioxide 21 L (22-30) mmol/L BUN 35 H (9-20) mg/dL Creatinine 1.41 H (0.66-1.25) mg/dL Glucose 122 H (74-99) mg/dL Microbiology - Last 24 Hours (Table) 06/01/17 08:03 Blood Culture - Preliminary Blood No Growth after 48 hours 06/01/17 07:54 Blood Culture - Preliminary Blood No Growth after 48 hours 06/02/17 08:00 Gram Stain - Preliminary Sputum Assessment and Plan Assessment: Impression: #1 Acute exacerbation of systolic congestive heart failure in a patient found to have a severe global hypokinesia and severely impaired left ventricular systolic function with estimated ejection fraction 25-30%. Status post cardiac catheterization 06/03/2017, results are pending. #2 New-onset atrial fibrillation with rapid ventricular response. Currently in a normal sinus rhythm. Anticoagulated with Xarelto. #3 Moderate pulmonary hypertension. #4 Valvular heart disease. #5 Acute exacerbation of her suspected chronic obstructive pulmonary disease complicated by purulent tracheobronchitis. #6 History of previous tobacco dependence. #7 Hypertension. #8 Crohn's disease. #9 History of nephrolithiasis status post lithotripsy. #10 Tinnitus. #11 Hearing disorder. #12 Bilateral tinnitus. Plan: The patient was seen and evaluated by Dr. Kuhn. The patient did undergo cardiac catheterization today. Further intervention recommendations are pending. He is breathing better today as compared to yesterday. Continue with his pulmonary medications. Continue diuretics. We will continue to follow and make further recommendations based on his clinical status. I, the cosigning physician, performed a history & physical examination of the patient. Lungs sounds with crackles in the bilateral posterior bases. Diminished. Maintaining good O2 saturations in the 90s on room air. I discussed the assessment and plan of care with my nurse practitioner, Jory Camacho. I attest to the above note as dictated by her.
[2017-06-03] MEDS: DOXAZOSIN 4 MG TAB PO SCH ×2 (13:09→20:22)
[2017-06-03] MEDS: LISINOPRIL 10 MG TAB PO SCH (13:09)
--- NOTE | 2017-06-03 14:39 | P.PN ---
Subjective Progress Note Date: 06/03/17 Principal diagnosis: Acute systolic heart failure Patient is a 71-year-old male with a known history of hypertension, Crohn's disease, nephrolithiasis, tobacco history, suspected COPD who has been having a multi-month history of shortness of breath. Previously diagnosed as having bronchitis with multiple courses of antibiotics and steroids, states she's never been able get back to his baseline. Presented with a fever to the emergency department along with the ongoing shortness of breath, found to be in atrial fibrillation with rapid ventricular response and admitted to this hospital. Echocardiogram done revealed severely impaired left ventricular systolic function with injection fraction of 25-30% along with noted severe global hypokinesia, moderate to severe mitral regurg, moderate to severe tricuspid regurg. Moderate pulmonary hypertension. Objective - Vital Signs Vital signs: Vital Signs Temp 97.1 F L 06/03/17 10:39 Pulse 68 06/03/17 14:09 Resp 16 06/03/17 14:09 BP 128/64 06/03/17 14:09 Pulse Ox 94 L 06/03/17 14:09 Intake & Output 06/02/17 06/03/17 06/03/17 18:59 06:59 18:59 Intake Total 4567 681 7641.6 Balance 7377 862 6824.6 Weight 87 kg 86.2 kg Intake: IV 323.6 Intake, IV Titration 150 525 Amount Levofloxacin 750Mg-D5w 150 Pmx 750 mg In Dextrose/ Water 1 150ml.bag @ 100 mls/hr IVPB Q24H [facility] Rx#: [id number] Sodium Chloride 0.9% 1, 525 000 ml @ 75 mls/hr IV . [id number] [facility] Rx#:[id number] Oral 900 240 240 Other: Voiding Method Toilet Toilet Toilet Urinal Urinal Urinal # Voids 2 - Exam General: A/O x 3, NAD, Lying in bed comfortably HEENT: EOMI, MMM, atraumatic normocephalic Neck: Supple. No JVD, trachea midline CVS: Regular rate and rhythm. + S1/S2, diffuse systolic ejection murmur Respiratory: Bilateral air entry noted. Clear to auscultation, no wheeze, no rhonchi Abdomen: Soft, nontender, nondistended. Bowel sounds audible Extremities: No lower extremity edema. No clubbing or cyanosis Skin: No rash or skin change noted Psych: Without hallucinations, abnormal affect, or abnormal behaviors during the examination - Labs CBC & Chem 7: 06/03/17 05:34 06/03/17 05:34 Labs: Abnormal Lab Results - Last 24 Hours (Table) 06/03/17 06/03/17 Range/Units 05:34 05:34 RBC 3.86 L (4.30-5.90) m/uL Hgb 10.9 L (13.0-17.5) gm/dL Hct 33.1 L (39.0-53.0) % Carbon Dioxide 21 L (22-30) mmol/L BUN 35 H (9-20) mg/dL Creatinine 1.41 H (0.66-1.25) mg/dL Glucose 122 H (74-99) mg/dL Microbiology - Last 24 Hours (Table) 06/01/17 08:03 Blood Culture - Preliminary Blood No Growth after 48 hours 06/01/17 07:54 Blood Culture - Preliminary Blood No Growth after 48 hours 06/02/17 08:00 Gram Stain - Preliminary Sputum Assessment and Plan (1) Acute systolic heart failure Current Visit: Yes Status: Acute Code(s): I50.21 - ACUTE SYSTOLIC ( CONGESTIVE) HEART FAILURE SNOMED Code(s): 591333862 (2) Valvular heart disease Current Visit: Yes Status: Acute Code(s): I38 - ENDOCARDITIS, VALVE UNSPECIFIED SNOMED Code(s): 439078 (3) Emphysema lung Current Visit: Yes Status: Acute Code(s): J43.9 - EMPHYSEMA, UNSPECIFIED SNOMED Code(s): 28677030 (4) Atrial fibrillation with rapid ventricular response Current Visit: Yes Status: Resolved Code(s): I48.91 - UNSPECIFIED ATRIAL FIBRILLATION SNOMED Code(s): 450998670260100 Plan: Acute exacerbation of systolic congestive heart failure Echocardiogram done revealed severely impaired left ventricular systolic function with injection fraction of 25-30% along with noted severe global hypokinesia, moderate to severe mitral regurg, moderate to severe tricuspid regurg. Moderate pulmonary hypertension. Cardiology on consult Cardiac catheterization 06/03/2017, results pending Diuresis with IV Lasix 20 mg IV twice a day On a beta billy, statin and DORIE inhibitor New onset atrial fibrillation with rapid ventricular response Anticoagulation with rivaraxaban Metoprolol for rate control Valvular heart disease Echocardiogram done revealed severely impaired left ventricular systolic function with injection fraction of 25-30% along with noted severe global hypokinesia, moderate to severe mitral regurg, moderate to severe tricuspid regurg. Moderate pulmonary hypertension Emphysema CT chest showing emphysema and a Changes Pulmonary on consult On Solu-Medrol, bronchodilators Wean off Solu-Medrol to prednisone
[2017-06-03] MEDS: FUROSEMIDE 20 MG TAB PO SCH (15:32)
--- NOTE | 2017-06-03 16:45 | CC ---
CARDIAC CATHETERIZATION REPORT Mr. Alonso is a 71-year-old male with no prior documented coronary artery disease who presented with atrial fibrillation and subsequently converted to sinus mechanism. His echocardiogram revealed a severely impaired left ventricular systolic function. In view of that, recommendation made regarding cardiac catheterization the procedures risks and complication were discussed with the patient who is in full understanding and agreement. PROCEDURE: Patient was brought to the microbiology lab manager in a fasting semi-sedated state after receiving fentanyl and Benadryl. He was draped and prepped in conventional fashion using Xylocaine anesthesia and after achieving moderate conscious sedation, using Xylocaine anesthesia and Seldinger technique, a 6-[place] sheath was introduced in the right radial artery. Selective right and left angiography performed using 5-[place] 3 and half bend right and left Fredo catheters, multiple views of the coronary artery including hemiaxial views were obtained. Following that, a 6-[place] FL3.5 guiding catheter introduced into the system. After cannulating the left main, a 0.014 balanced medium weight J-wire was advanced and positioned in the distal LAD. Subsequently, an [place] eye IVUS catheter was introduced and measurements were obtained in the distal left main. Following that catheter and the wire and the IVUS catheter were removed. Following that, the 6-[place] FR4 guiding catheter was introduced into the system and after cannulating the right coronary ostium a Doppler flow wire was advanced into the distal right coronary artery and after infusion of adenosine per protocol, pressures were calculated. Following that catheter and sheath were removed. Hemostasis was obtained with deployment of a TR band. There was no immediate complication. Patient is returned to his room in stable condition. Of note, the patient received 5500 units of intravenous heparin as well as intra-arterial verapamil. At the beginning of the procedure the Angiocath in the right basilic vein was exchanged using wire exchange technique to a 6-[place] sheath. Attempts to advance a [place]-Dannie catheter were unsuccessful because of tortuosity. FINDINGS: 1. Left Main: This is a large-sized vessel bifurcating left circumflex and left anterior descending artery. Left main coronary artery distally has a 40% to 50% plaque at the bifurcation. The rest of the vessel has no high-grade stenosis. 2. Left Anterior Descending Artery: This is a large-sized vessel reaching toward the apex with a wraparound apex segment giving rise to a large diagonal branch. The left anterior descending artery in the mid segment has a 20% plaque. The rest of the vessel has no high-grade stenosis. 3. Left Circumflex: This is a nondominant vessel giving rise to a large obtuse marginal branch. The left circumflex has 40-50% plaque proximally. The rest of the vessel has no high-grade stenosis. 4. Right Coronary Artery: This is a large dominant vessel bifurcating PDA and posterolateral segment and branches. The right coronary artery mid segment has 50% plaque. The rest of the vessel has no high-grade stenosis. 5. Left Ventriculogram: Left ventriculogram was not performed. 6. Fractional flow reserve of the right coronary artery is 83% consistent with non hemodynamically significant lesion. 7. Intravascular ultrasound of the distal left main: The tightest segment showed area of 6.7 mm2 and a maximum diameter of 3.3 mm. At the largest area, the area was 24.7 mm2 with a maximum diameter of 6 mm. IMPRESSION: 1. Moderate disease in the distal left main and the mid right coronary artery and moderate disease in the proximal left circumflex. 2. Nonhemodynamically significant lesion in the right coronary artery. 3. Borderline significant lesion in the distal left main. RECOMMENDATION: At this time, I will continue medical therapy and depending on his progress, further recommendation will be made. Those findings and recommendation were discussed with the patient and his family who are in full understanding and agreement. DURATION OF PROCEDURE: 1 hour. MICHAEL / KALPANA: [id number] /
[2017-06-03] MEDS: RIVAROXABAN 20 MG TAB PO SCH (17:02)
[2017-06-03] MEDS: DILTIAZEM 50 MG in SODIUM CHLORIDE 0.9% 40 ML IV SCH ×2 (17:50→21:50)
[2017-06-04] MEDS: HYDROcodone/APAP 5-325MG 1 EACH TAB PO PRN ×2 (01:12→09:54)
[2017-06-04] MEDS: DILTIAZEM 50 MG in SODIUM CHLORIDE 0.9% 40 ML IV SCH ×2 (03:23→09:01)
[2017-06-04] MEDS: PANTOPRAZOLE 40 MG TABLET PO SCH (06:27)
[2017-06-04] MEDS: IPRATROPIUM-ALBUTEROL 3 ML NEB INHALATION SCH ×4 (06:49→19:41)
[2017-06-04 06:52] LABS: HCT 33.3 % (39.0-53.0); HGB 10.6 gm/dL (13.0-17.5); MCH 27.8 pg (25.0-35.0); MCHC 31.9 g/dL (31.0-37.0); MCV 87.2 fL (80.0-100.0); Mean Platelet Volume 8.5; Platelet Count 164 k/uL (150-450); RBC 3.82 m/uL (4.30-5.90); RDW 14.6 % (11.5-15.5); WBC 7.6 k/uL (3.8-10.6)
[2017-06-04 07:01] LABS: Magnesium 2.2 mg/dL (1.6-2.3); Potassium 4.3 mmol/L (3.5-5.1)
[2017-06-04] MEDS: BALSALAZIDE DISODIUM 750 MG CAPSULE PO SCH ×3 (09:45→20:55)
[2017-06-04] MEDS: AMOXIC-POT CLAV 500-125 MG 1 EACH TAB PO SCH ×2 (09:45→20:55)
[2017-06-04] MEDS: ASPIRIN 81 MG PO SCH (09:45)
[2017-06-04] MEDS: FUROSEMIDE 20 MG TAB PO SCH (09:46)
[2017-06-04] MEDS: DOXAZOSIN 4 MG TAB PO SCH ×2 (09:46→20:55)
[2017-06-04] MEDS: LISINOPRIL 10 MG TAB PO SCH (09:46)
[2017-06-04] MEDS: predniSONE 20 MG TAB PO SCH (09:47)
[2017-06-04] MEDS ORDERED: guaiFENesin SYRUP 100MG/5ML 200 MG/10 ML CUP PO PRN (09:51)
[2017-06-04] MEDS: METOPROLOL TARTRATE 25 MG TAB PO SCH ×2 (09:54→20:59)
[2017-06-04] MEDS ORDERED: FUROSEMIDE 10 MG/ML 4 ML VIAL IV STA (10:06)
[2017-06-04] MEDS ORDERED: FUROSEMIDE 10 MG/ML 4 ML VIAL ONE (10:12)
--- NOTE | 2017-06-04 10:28 | PN ---
PROGRESS NOTE Mr. Alonso is a 71-year-old male who presented with symptoms of progressive dyspnea and cough with wheezing. He was diagnosed with a respiratory infection. He had evidence of paroxysmal atrial fibrillation. He went back to sinus mechanism, but last night he had atrial fibrillation and subsequently again back in sinus and this morning he is in atrial flutter. Because of his LV systolic function being impaired on the echocardiogram, he underwent cardiac catheterization yesterday that showed moderate disease in the left main and a moderate disease in the mid right coronary artery. He has continued to have a cough. His breathing is stable. He denies any dizziness or palpitation. He denies any nausea. He continues to be on aspirin once a day, Xarelto 20 mg daily, lisinopril 10 mg daily, metoprolol tartrate 25 mg twice a day and Lasix 20 mg twice a day. PHYSICAL EXAMINATION: Blood pressure 106/70 with the heart rate in the 80s. LUNGS: With scattered wheezes. HEART: Irregular, irregular, S1, S2. No S3. No rub. With a systolic murmur at the apex. ABDOMEN: Soft and nontender. EXTREMITIES: No edema. Right radial pulse is intact. LAB DATA: Lab data revealed a BUN and creatinine of 30 and 1.1. Potassium 4.3. Hemoglobin of 10.6. IMPRESSION: 1. Cardiomyopathy of unclear duration or etiology. 2. Coronary artery disease with moderate left main disease and moderate right coronary artery disease. 3. Upper respiratory infection exacerbation of lung status. 4. Paroxysmal atrial fibrillation. 5. Mitral and tricuspid regurgitation. RECOMMENDATION: From the cardiac standpoint, I will add to his regimen amiodarone 400 mg twice a day in addition to Aldactone 25 mg daily. Once the patient stabilized and his activity is increased, he may benefit from transesophageal echocardiogram to further evaluate his valvular structure and guide his treatment. Depending on his progress, further recommendation will be made. MMODL / IJN: [id number] /
[2017-06-04 10:39] LABS: ABG HCO3 24 mmol/L (21-25); ABG PCO2 40 mmHg (35-45); ABG PH 7.39 (7.35-7.45); ABG PO2 154 mmHg (83-108); ABG TCO2 25 mmol/L (19-24)
--- NOTE | 2017-06-04 11:16 | XR ---
EXAMINATION TYPE: XR chest 1V DATE OF EXAM: 06/04/2017 COMPARISON: Prior chest x-ray 06/02/2017, chest CT 06/01/2017 HISTORY: Pulmonary edema, shortness of breath TECHNIQUE: Single frontal view of the chest is obtained. FINDINGS: Interstitium is increased. No pneumothorax or pleural effusion. Heart is enlarged. IMPRESSION: Correlate for pulmonary venous hypertension and interstitial edema.
[2017-06-04] MEDS: AMIODARONE 200 MG TAB PO SCH ×2 (11:51→20:55)
[2017-06-04] MEDS: CYANOCOBALAMIN 500 MCG TAB PO SCH (11:52)
[2017-06-04] MEDS: CHOLECALCIFEROL 1,000 UNIT TAB PO SCH (11:52)
[2017-06-04] MEDS: MULTIVITAMINS, THERA 1 EACH TAB PO SCH (11:52)
--- NOTE | 2017-06-04 13:24 | P.PN ---
Subjective Progress Note Date: 06/04/17 Principal diagnosis: Acute exacerbation of systolic congestive heart failure, new onset atrial fibrillation with RVR, valvular heart disease, acute exacerbation of COPD Coronary artery disease This is a very pleasant 71-year-old gentleman who follows with Dr. Mauricio Keith as his primary care physician. He has history of Crohn's disease, nephrolithiasis status post lithotripsy him a BPH, hypertension, tinnitus. He has has a history of previous tobacco dependence and suspected COPD. 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 He had been having ongoing issues with shortness of breath, yellow productive sputum. He had been treated for bronchitis 2 with antibiotics and steroids. Never quite back to his baseline. He did have a fever of 102.4. He presented to the emergency room at [facility] with increasing shortness of breath, cough, congestion palpitations. He was found to be in atrial fibrillation with a rapid ventricular response and was subsequently transferred here to [facility] yesterday morning. His chest x-ray did reveal evidence of fluid volume overload and congestive heart failure. An echocardiogram revealed severely impaired left ventricular systolic function with ejection fraction 25-30%. There is also noted severe global hypokinesia. He has moderate to severe mitral regurgitation. Moderate to severe tricuspid regurgitation. Moderate pulmonary hypertension with an RVSP of 57.96 mmHg. ProBNP 6190. Creatinine 1.20. He has been initiated on Lasix 20 mg IV push every 12 hours. He is seen today in consultation on the selective care unit. He is currently sitting up in a chair at the bedside. He is awake and alert in no acute distress. He is breathing easier today as compared to yesterday. He is maintaining good O2 saturations in the 90s on room air. He has since converted back to normal sinus rhythm. He is afebrile. No fever chills or night sweats. No productive cough. The cultures reveal no growth to date. He has been initiated on Xarelto. He is also on bronchodilators, IV Solu-Medrol and antibiotics in the form of Augmentin. The patient is seen again today 06/03/2017 in follow-up on the selective care unit. He is currently resting comfortably in bed. He did undergo cardiac catheterization this morning. Report is pending. Further interventions are being discussed. He denies any shortness of breath currently. No chest pain or palpitations. He is currently maintaining good O2 saturations in the 90s on room air. He is hemodynamically stable. Blood and sputum cultures reveal no growth to date. White count 9.7. Hemoglobin 10.9. Creatinine 1.41. He is currently on bronchodilators, IV Solu-Medrol, Augmentin. Xarelto currently on hold. On 06/04/2017 patient seen in follow-up on selective care unit. Patient underwent cardiac catheterization on 06/03/2017 was found to have moderate disease in the distal left main and the mid RCA and moderate disease in the proximal left circumflex. In the plan is to treat him medically for his coronary artery disease. Yesterday in the afternoon patient back into atrial fibrillation with RVR, started on Cardizem drip, and currently his rate is ranging anywhere from 80-110 BPM. Patient had an episode of acute respiratory distress this morning, she was tachypneic, coughing, and was given 40 mg of IV Lasix for what appeared to be acute pulmonary edema. Chest x-ray was obtained, and showed pulmonary venous hypertension, and interstitial edema. Patient was placed on 100% nonrebreather, once releasing his FiO2 was weaned back down, and currently the patient is on 3 L per nasal cannula with O2 sat 94%. She remains on oral prednisone, Xarelto for anticoagulation. Responded well to IV diuretics. Objective - Vital Signs Vital signs: Vital Signs Temp 97.5 F L 06/04/17 07:50 Pulse 86 06/04/17 11:19 Resp 22 06/04/17 11:19 BP 123/80 06/04/17 11:18 Pulse Ox 94 L 06/04/17 11:18 Intake & Output 06/03/17 06/04/17 06/04/17 18:59 06:59 18:59 Intake Total 1568.6 445 712 Output Total 680 Balance 1568.6 445 32 Weight 87 kg Intake: IV 323.6 355 0.9 275 Diltiazem 50 mg In Sodium 80 Chloride 0.9% 40 ml @ 10 MG/HR 10 mls/hr IV .Q5H [facility] Rx#:[id number] Intake, IV Titration 525 90 50 Amount Diltiazem 50 mg In Sodium 90 50 Chloride 0.9% 40 ml @ 10 MG/HR 10 mls/hr IV .Q5H [facility] Rx#:[id number] Sodium Chloride 0.9% 1, 525 000 ml @ 75 mls/hr IV . [id number] [facility] Rx#:[id number] Oral 720 360 Tube Feeding 300 Other 2 Output: Urine 680 Other: Voiding Method Toilet Toilet Toilet Urinal Urinal Urinal # Voids 1 # Bowel Movements 1 - Exam GENERAL EXAM: Alert, active, comfortable in no apparent distress. HEAD: Normocephalic. EYES: Normal reaction of pupils, equal size. NOSE: Clear with pink turbinates. THROAT: No erythema or exudates. NECK: No masses, no JVD. CHEST: No chest wall deformity. LUNGS: Equal air entry with wheezing and laterally. Diminished breath sounds CVS: S1 and S2 normal with an audible murmur, regular rhythm. ABDOMEN: No hepatosplenomegaly, normal bowel sounds, no guarding or rigidity. SPINE: No scoliosis or deformity SKIN: No rashes CENTRAL NERVOUS SYSTEM: No focal deficits, tone is normal in all 4 extremities. EXTREMITIES: There is trace peripheral edema. No clubbing, no cyanosis. Peripheral pulses are intact. - Labs CBC & Chem 7: 06/04/17 06:26 06/04/17 06:26 Labs: Abnormal Lab Results - Last 24 Hours (Table) 06/04/17 06/04/17 06/04/17 Range/Units 06:26 06:26 10:36 RBC 3.82 L (4.30-5.90) m/uL Hgb 10.6 L (13.0-17.5) gm/dL Hct 33.3 L (39.0-53.0) % ABG pO2 154 H (83-108) mmHg ABG Total CO2 25 H (19-24) mmol/L ABG O2 Saturation 99.0 H (94-97) % BUN 30 H (9-20) mg/dL Glucose 103 H (74-99) mg/dL Calcium 8.0 L (8.4-10.2) mg/dL Microbiology - Last 24 Hours (Table) 06/01/17 08:03 Blood Culture - Preliminary Blood No Growth after 72 hours 06/01/17 07:54 Blood Culture - Preliminary Blood No Growth after 72 hours 06/02/17 08:00 Gram Stain - Final Sputum Sputum Culture - Final Assessment and Plan Plan: Assessment: #1 Acute exacerbation of systolic congestive heart failure in a patient found to have a severe global hypokinesia and severely impaired left ventricular systolic function with estimated ejection fraction 25-30%. Status post cardiac catheterization 06/03/2017, the patient was found to have significant coronary artery disease involving the left main, RCA and circumflex coronary arteries, patient will be treated medically #2 New-onset atrial fibrillation with rapid ventricular response. Currently in a normal sinus rhythm. Anticoagulated with Xarelto. #3 Moderate pulmonary hypertension. #4 Valvular heart disease. #5 Acute exacerbation of her suspected chronic obstructive pulmonary disease complicated by purulent tracheobronchitis. #6 History of previous tobacco dependence. #7 Hypertension. #8 Crohn's disease. #9 History of nephrolithiasis status post lithotripsy. #10 Tinnitus. #11 Hearing disorder. #12 Bilateral tinnitus. Plan: Continue IV diuresis, patient went into acute pulmonary edema, and had an episode of acute respiratory distress this morning, responded well to a dose of IV Lasix, and is now placed on IV Lasix 40 mg every 12 hours, continue nebulized treatments, prednisone, and empiric antibiotics. Chest x-ray results and blood gases were reviewed and are consistent with interstitial edema secondary to acute systolic congestive heart failure. BiPAP support as needed, continue diuresis. We will continue to follow. I performed a history & physical examination of the patient and discussed their management with my nurse practitioner, Parvin Arango. I reviewed the nurse practitioner's note and agree with the documented findings and plan of care. Lung sounds are positive for diffuse wheezes throughout the lung hernandez. The findings and the impression was discussed with the patient. I attest to the documentation by the nurse practitioner. Time with Patient: Less than 30
[2017-06-04] MEDS: RIVAROXABAN 20 MG TAB PO SCH (17:39)
[2017-06-04] MEDS: guaiFENesin-Coden 100-10MG/5ML 10 ML CUP PO PRN (17:43)
[2017-06-04] MEDS: FUROSEMIDE 10 MG/ML 4 ML VIAL IV SCH (20:54)
[2017-06-05] MEDS: PANTOPRAZOLE 40 MG TABLET PO SCH (06:08)
[2017-06-05 07:00] LABS: Calcium 8.2 mg/dL (8.4-10.2); Potassium 3.5 mmol/L (3.5-5.1)
--- NOTE | 2017-06-05 08:22 | P.PN ---
Subjective Progress Note Date: 06/04/17 Principal diagnosis: respiratory distress Patient found to be in respiratory distress, placed on 100% nonrebreather W/ pulmonary edema. Patient was doing well earlier when cardiology had seen him. Patient has received nebulizer treatment and has received Lasix 40 mg. Patient still seems to be in some respiratory distress. Objective - Vital Signs Vital signs: Vital Signs Temp 97.5 F L 06/04/17 07:50 Pulse 112 H 06/04/17 10:52 Resp 18 06/04/17 07:52 BP 106/70 06/04/17 07:50 Pulse Ox 92 L 06/04/17 07:50 Intake & Output 06/03/17 06/04/17 06/04/17 18:59 06:59 18:59 Intake Total 1568.6 445 410 Balance 1568.6 445 410 Weight 87 kg Intake: IV 323.6 355 0.9 275 Diltiazem 50 mg In Sodium 80 Chloride 0.9% 40 ml @ 10 MG/HR 10 mls/hr IV .Q5H [facility] Rx#:[id number] Intake, IV Titration 525 90 50 Amount Diltiazem 50 mg In Sodium 90 50 Chloride 0.9% 40 ml @ 10 MG/HR 10 mls/hr IV .Q5H [facility] Rx#:[id number] Sodium Chloride 0.9% 1, 525 000 ml @ 75 mls/hr IV . [id number] [facility] Rx#:[id number] Oral 720 360 Other: Voiding Method Toilet Toilet Toilet Urinal Urinal Urinal - Exam gen: Respiratory distress lungs: Crackles bilaterally heart:s1s2 abdomen:soft and depressible,non tender ext:no edema - Labs CBC & Chem 7: 06/04/17 06:26 06/04/17 06:26 Labs: Abnormal Lab Results - Last 24 Hours (Table) 06/04/17 06/04/17 06/04/17 Range/Units 06:26 06:26 10:36 RBC 3.82 L (4.30-5.90) m/uL Hgb 10.6 L (13.0-17.5) gm/dL Hct 33.3 L (39.0-53.0) % ABG pO2 154 H (83-108) mmHg ABG Total CO2 25 H (19-24) mmol/L ABG O2 Saturation 99.0 H (94-97) % BUN 30 H (9-20) mg/dL Glucose 103 H (74-99) mg/dL Calcium 8.0 L (8.4-10.2) mg/dL Microbiology - Last 24 Hours (Table) 06/01/17 08:03 Blood Culture - Preliminary Blood No Growth after 72 hours 06/01/17 07:54 Blood Culture - Preliminary Blood No Growth after 72 hours 06/02/17 08:00 Gram Stain - Final Sputum Sputum Culture - Final Assessment and Plan (1) Respiratory distress Narrative/Plan: Currently on 100% nonrebreather Has improved some since he has received the Lasix and nebulizer. ABG ordered Discussed with Dr Perry, we will follow patient closely here since he has been improving. Current Visit: Yes Status: Acute Code(s): R06.03 - ACUTE RESPIRATORY DISTRESS SNOMED Code(s): 902248108 (2) Atrial fibrillation with rapid ventricular response Narrative/Plan: On Cardizem drip on xarelto Current Visit: Yes Status: Resolved Code(s): I48.91 - UNSPECIFIED ATRIAL FIBRILLATION SNOMED Code(s): 105969287431669 (3) Acute systolic heart failure Narrative/Plan: We'll start on IV Lasix Current Visit: Yes Status: Acute Code(s): I50.21 - ACUTE SYSTOLIC ( CONGESTIVE) HEART FAILURE SNOMED Code(s): 056162115 (4) Emphysema lung Current Visit: Yes Status: Acute Code(s): J43.9 - EMPHYSEMA, UNSPECIFIED SNOMED Code(s): 14135255 (5) Pneumonia Narrative/Plan: IV Unasyn Current Visit: Yes Status: Acute Code(s): J18.9 - PNEUMONIA, UNSPECIFIED ORGANISM SNOMED Code(s): 127195556
--- NOTE | 2017-06-05 08:30 | P.PN ---
Subjective Progress Note Date: 06/05/17 Principal diagnosis: respiratory distress and fluid overload Patient responded well to the diuresis yesterday. Currently on nasal cannula. Patient catch her breath by going to the bathroom this morning. Objective - Vital Signs Vital signs: Vital Signs Temp 97.5 F L 06/05/17 03:26 Pulse 60 06/05/17 03:26 Resp 19 06/05/17 03:26 BP 119/80 06/05/17 03:26 Pulse Ox 97 06/05/17 03:26 Intake & Output 06/04/17 06/05/17 06/05/17 18:59 06:59 18:59 Intake Total 1672 236 Output Total 1430 1750 200 Balance 242 -1750 36 Weight 88 kg Intake: Intake, IV Titration 50 Amount Diltiazem 50 mg In Sodium 50 Chloride 0.9% 40 ml @ 10 MG/HR 10 mls/hr IV .Q5H [facility] Rx#:[id number] Oral 1320 236 Tube Feeding 300 Other 2 Output: Urine 1430 1750 200 Other: Voiding Method Toilet Toilet Urinal Urinal # Voids 2 1 # Bowel Movements 1 1 - Exam gen:alert and oriented lungs: Bibasilar crackles heart:s1s2 abdomen:soft and depressible,non tender ext:no edema - Labs CBC & Chem 7: 06/04/17 06:26 06/05/17 05:53 Labs: Abnormal Lab Results - Last 24 Hours (Table) 06/04/17 06/05/17 Range/Units 10:36 05:53 ABG pO2 154 H (83-108) mmHg ABG Total CO2 25 H (19-24) mmol/L ABG O2 Saturation 99.0 H (94-97) % BUN 29 H (9-20) mg/dL Calcium 8.2 L (8.4-10.2) mg/dL Microbiology - Last 24 Hours (Table) 06/01/17 08:03 Blood Culture - Preliminary Blood No Growth after 72 hours 06/01/17 07:54 Blood Culture - Preliminary Blood No Growth after 72 hours 06/02/17 08:00 Gram Stain - Final Sputum Sputum Culture - Final Assessment and Plan (1) Respiratory distress Narrative/Plan: Responding well to the Lasix On nasal cannula Still shortness of breath with exertion Continue diuresis Current Visit: Yes Status: Acute Code(s): R06.03 - ACUTE RESPIRATORY DISTRESS SNOMED Code(s): 919741473 (2) Atrial fibrillation with rapid ventricular response Narrative/Plan: currently rate controlled on amiodarone Current Visit: Yes Status: Resolved Code(s): I48.91 - UNSPECIFIED ATRIAL FIBRILLATION SNOMED Code(s): 957080419782299 (3) Acute systolic heart failure Narrative/Plan: Status post flash pulmonary edema yesterday Responded well to diuresis T Lasix 40 mg IV every 12 Plan for RUT today Current Visit: Yes Status: Acute Code(s): I50.21 - ACUTE SYSTOLIC ( CONGESTIVE) HEART FAILURE SNOMED Code(s): 887218238 (4) Emphysema lung Current Visit: Yes Status: Acute Code(s): J43.9 - EMPHYSEMA, UNSPECIFIED SNOMED Code(s): 14847637 (5) Pneumonia Current Visit: Yes Status: Acute Code(s): J18.9 - PNEUMONIA, UNSPECIFIED ORGANISM SNOMED Code(s): 197972382
[2017-06-05] MEDS: AMOXIC-POT CLAV 500-125 MG 1 EACH TAB PO SCH ×2 (08:34→21:42)
[2017-06-05] MEDS: FUROSEMIDE 10 MG/ML 4 ML VIAL IV SCH ×2 (08:34→21:43)
[2017-06-05] MEDS: DOXAZOSIN 4 MG TAB PO SCH ×2 (08:35→21:43)
[2017-06-05] MEDS: AMIODARONE 200 MG TAB PO SCH ×2 (08:35→21:42)
[2017-06-05] MEDS: ASPIRIN 81 MG PO SCH (08:35)
[2017-06-05] MEDS: METOPROLOL TARTRATE 25 MG TAB PO SCH ×2 (08:35→21:43)
[2017-06-05] MEDS: CHOLECALCIFEROL 1,000 UNIT TAB PO SCH (08:36)
[2017-06-05] MEDS: predniSONE 20 MG TAB PO SCH (08:36)
[2017-06-05] MEDS: MULTIVITAMINS, THERA 1 EACH TAB PO SCH (08:36)
[2017-06-05] MEDS: LISINOPRIL 10 MG TAB PO SCH (08:36)
[2017-06-05] MEDS: CYANOCOBALAMIN 500 MCG TAB PO SCH (08:36)
[2017-06-05] MEDS: SPIRONOLACTONE 25 MG TAB PO SCH (08:37)
[2017-06-05] MEDS: BALSALAZIDE DISODIUM 750 MG CAPSULE PO SCH ×3 (08:40→21:43)
--- NOTE | 2017-06-05 08:41 | PN ---
PROGRESS NOTE Mr. Alonso 71-year-old male who presented with symptoms of progressive dyspnea, cough with finding consistent with respiratory infection, had episode of atrial fibrillation with elevation of his troponin. Underwent cardiac catheterization, was found to have moderate disease in the mid right coronary artery with moderate disease in the distal left main. His echocardiogram showed moderate to severe mitral and tricuspid regurgitation. Yesterday mid morning, he had an episode of acute exacerbation of dyspnea. He was treated with IV Lasix with improvement in his symptoms. He is feeling better today. His breathing is stable. He is denying any chest pain. No dizziness. He continues to cough, but no clear sputum. He continues to be at this time on amiodarone 400 mg twice a day, aspirin 81 mg daily, furosemide 40 mg IV q.12 hours, lisinopril 10 mg daily, metoprolol tartrate 25 mg twice a day, spironolactone 25 mg daily. PHYSICAL EXAMINATION: Blood pressure 119/80 with the heart rate in the 60s. LUNGS: With scattered rhonchi and crackles bilaterally. HEART: Irregular, irregular. S1, S2. No S3 with a systolic murmur at the apex. ABDOMEN: Soft, nontender. EXTREMITIES: No edema. LAB DATA: Lab data revealed BUN and creatinine 29 and 1.08. Potassium is 3.5. IMPRESSION: 1. Episode of congestive heart failure yesterday with impaired left ventricular systolic function. 2. Atrial fibrillation, persistent. 3. Upper respiratory infection. 4. Coronary artery disease. 5. Mitral regurgitation and tricuspid regurgitation. RECOMMENDATION: From the cardiac standpoint, I would recommend to proceed with transesophageal echocardiogram to further assess his valve structure and guide his treatment. The rational behind the procedure as well as risks and complications were discussed with the patient who is in full understanding and agreement. The procedure will be done today and depending on his progress further recommendation will be made. In the meantime, we will continue on the anticoagulation as initiated as well as the amiodarone. MMODL / IJN: [id number] /
[2017-06-05] MEDS: guaiFENesin-Coden 100-10MG/5ML 10 ML CUP PO PRN (08:48)
[2017-06-05] MEDS: IPRATROPIUM-ALBUTEROL 3 ML NEB INHALATION SCH ×4 (08:57→19:57)
--- NOTE | 2017-06-05 12:33 | P.PN ---
Subjective Progress Note Date: 06/05/17 This is a very pleasant 71-year-old gentleman who follows with Dr. Mauricio Keith as his primary care physician. He has history of Crohn's disease, nephrolithiasis status post lithotripsy him a BPH, hypertension, tinnitus. He has has a history of previous tobacco dependence and suspected COPD. 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 He had been having ongoing issues with shortness of breath, yellow productive sputum. He had been treated for bronchitis 2 with antibiotics and steroids. Never quite back to his baseline. He did have a fever of 102.4. He presented to the emergency room at [facility] with increasing shortness of breath, cough, congestion palpitations. He was found to be in atrial fibrillation with a rapid ventricular response and was subsequently transferred here to [facility] yesterday morning. His chest x-ray did reveal evidence of fluid volume overload and congestive heart failure. An echocardiogram revealed severely impaired left ventricular systolic function with ejection fraction 25-30%. There is also noted severe global hypokinesia. He has moderate to severe mitral regurgitation. Moderate to severe tricuspid regurgitation. Moderate pulmonary hypertension with an RVSP of 57.96 mmHg. ProBNP 6190. Creatinine 1.20. He has been initiated on Lasix 20 mg IV push every 12 hours. He is seen today in consultation on the selective care unit. He is currently sitting up in a chair at the bedside. He is awake and alert in no acute distress. He is breathing easier today as compared to yesterday. He is maintaining good O2 saturations in the 90s on room air. He has since converted back to normal sinus rhythm. He is afebrile. No fever chills or night sweats. No productive cough. The cultures reveal no growth to date. He has been initiated on Xarelto. He is also on bronchodilators, IV Solu-Medrol and antibiotics in the form of Augmentin. The patient is seen again today 06/03/2017 in follow-up on the selective care unit. He is currently resting comfortably in bed. He did undergo cardiac catheterization this morning. Report is pending. Further interventions are being discussed. He denies any shortness of breath currently. No chest pain or palpitations. He is currently maintaining good O2 saturations in the 90s on room air. He is hemodynamically stable. Blood and sputum cultures reveal no growth to date. White count 9.7. Hemoglobin 10.9. Creatinine 1.41. He is currently on bronchodilators, IV Solu-Medrol, Augmentin. Xarelto currently on hold. On 06/04/2017 patient seen in follow-up on selective care unit. Patient underwent cardiac catheterization on 06/03/2017 was found to have moderate disease in the distal left main and the mid RCA and moderate disease in the proximal left circumflex. In the plan is to treat him medically for his coronary artery disease. Yesterday in the afternoon patient back into atrial fibrillation with RVR, started on Cardizem drip, and currently his rate is ranging anywhere from 80-110 BPM. Patient had an episode of acute respiratory distress this morning, she was tachypneic, coughing, and was given 40 mg of IV Lasix for what appeared to be acute pulmonary edema. Chest x-ray was obtained, and showed pulmonary venous hypertension, and interstitial edema. Patient was placed on 100% nonrebreather, once releasing his FiO2 was weaned back down, and currently the patient is on 3 L per nasal cannula with O2 sat 94%. She remains on oral prednisone, Xarelto for anticoagulation. Responded well to IV diuretics. On 06/05/2088 seeing Cb for a follow-up. Obviously the patient is less short of breath compared to yesterday. Note that the patient went into an acute pulmonary edema yesterday and he became acutely short of breath. He responded nicely to diuretics. He is going to have a RUT to evaluate the mitral valve regurgitation today and its severity. The patient is still in atrial fibrillation. Rate is under better control and the patient is currently off the Cardizem drip. He has having no chest pain. No nausea. No vomiting. No cough or sputum production. Cardiology is on the case and the patient is currently anticoagulated with Xarelto. He is also on metoprolol 25 mg by mouth twice a day and amiodarone 400 mg by mouth twice a day and the patient is also on a combination of Lasix and Aldactone. The patient is also completing a course of Augmentin and a prednisone burst taper regarding acute bronchitis/ COPD exacerbation. For now the plan is to proceed with cardiac evaluation with RUT. Objective - Vital Signs Vital signs: Vital Signs Temp 97.0 F L 06/05/17 12:01 Pulse 79 06/05/17 12:07 Resp 20 06/05/17 12:01 BP 126/85 06/05/17 12:01 Pulse Ox 98 06/05/17 12:01 Intake & Output 06/04/17 06/05/17 06/05/17 18:59 06:59 18:59 Intake Total 1672 236 Output Total 1430 1750 1375 Balance 242 -1750 -1139 Weight 88 kg Intake: Intake, IV Titration 50 Amount Diltiazem 50 mg In Sodium 50 Chloride 0.9% 40 ml @ 10 MG/HR 10 mls/hr IV .Q5H [facility] Rx#:[id number] Oral 1320 236 Tube Feeding 300 Other 2 Output: Urine 1430 1750 1375 Other: Voiding Method Toilet Toilet Toilet Urinal Urinal Urinal # Voids 2 3 # Bowel Movements 1 1 - Exam GENERAL EXAM: Alert, active, comfortable in no apparent distress. HEAD: Normocephalic. EYES: Normal reaction of pupils, equal size. NOSE: Clear with pink turbinates. THROAT: No erythema or exudates. NECK: No masses, no JVD. CHEST: No chest wall deformity. LUNGS: Equal air entry with wheezing and laterally. Diminished breath sounds, few crackles at lung bases bilaterally CVS: Irregular S1 and S2 normal with an audible murmur, irregular rhythm consistent with atrial fibrillation yet the rate is under better control for now ABDOMEN: No hepatosplenomegaly, normal bowel sounds, no guarding or rigidity. SPINE: No scoliosis or deformity SKIN: No rashes CENTRAL NERVOUS SYSTEM: No focal deficits, tone is normal in all 4 extremities. EXTREMITIES: There is trace peripheral edema. No clubbing, no cyanosis. Peripheral pulses are intact. - Labs CBC & Chem 7: 06/04/17 06:26 06/05/17 05:53 Labs: Abnormal Lab Results - Last 24 Hours (Table) 06/05/17 Range/Units 05:53 BUN 29 H (9-20) mg/dL Calcium 8.2 L (8.4-10.2) mg/dL Microbiology - Last 24 Hours (Table) 06/01/17 08:03 Blood Culture - Preliminary Blood No Growth after 96 hours 06/01/17 07:54 Blood Culture - Preliminary Blood No Growth after 96 hours 06/02/17 08:00 Gram Stain - Final Sputum Sputum Culture - Final Assessment and Plan Plan: Assessment 1 shortness of breath secondary to a combination of COPD and CHF exacerbation. Upon further investigation the patient was found to have significant cardiac disease and a cardiac catheterization showed moderate disease involving the mid RCA and the distal left main. Echocardiogram also showed a moderate to severe mitral regurgitation and the patient will be having a RUT to evaluate the severity of the MR. The patient was in acute pulmonary edema yesterday and he responded nicely to diuretics. He is improved compared to yesterday and is on a combination of Lasix and Aldactone. 2 diffuse emphysema with centrilobular changes as evident on the CAT scan of the chest 3 bilateral pleural effusion, small, right more than left, likely related to CHF 4 atrial fibrillation with rapid ventricular response, and the patient is currently still in atrial fibrillation and the rates controlled a combination of metoprolol 25 mg by mouth twice a day and amiodarone from milligrams by mouth twice a day. The patient is also on long-term and to coagulation with Xarelto regarding the atrial fibrillation. 5 CHF with an ejection fraction of 25-30% based on echocardiogram. The patient also the valvular changes with MR and TR and the patient has a right ventricular estimated systolic pressure of around 57 mmHg. The patient echocardiac Nba showed elevation of the right atrial pressure based on the absence of collapsibility of the IVC. No pericardial effusion. 6 BPH 7 Crohn's disease 8 hypertension 9 nephrolithiasis Plan Complete the Augmentin and a prednisone burst taper. In terms of the cardiac status, the patient is still in atrial fibrillation and the patient is on a combination of amiodarone and metoprolol. The patient is anticoagulated with Xarelto. The patient with a combination of Lasix and Aldactone. The patient is still on oxygen. A RUT will be done to assess the severity of the MR. We' ll continue to follow.
[2017-06-05] MEDS ORDERED: MIDAZOLAM 2 MG/2 ML VIAL ONE (13:24)
[2017-06-05] MEDS ORDERED: fentaNYL (PF) 50 MCG/ML 2 ML AMP ONE (13:25)
[2017-06-05] MEDS: BENZOCAINE SPRAY 1 CAN MUCOUS MEM ONE ×2 (13:45→13:50)
[2017-06-05] MEDS ORDERED: SODIUM CHLORIDE 0.9% 500 ML IV ONE (13:45)
[2017-06-05] MEDS ORDERED: MIDAZOLAM 2 MG/2 ML VIAL IVP ONE (14:06)
[2017-06-05] MEDS ORDERED: fentaNYL (PF) 50 MCG/ML 2 ML AMP IVP ONE (14:07)
--- NOTE | 2017-06-05 14:59 | ECHOT ---
TRANSESOPHAGEAL ECHOCARDIOGRAM PERFORMING PHYSICIAN: Iain Perry MD PROCEDURE PERFORMED: Transesophageal echocardiogram. INDICATIONS: Mitral valve. COMPLICATIONS: No immediate complications. LEVEL OF SEDATION: Moderate conscious sedation. PROCEDURE DESCRIPTION: After explaining the procedure to the patient, its risks and complications, his blood pressure, heart rate and oxygen saturation were monitored. The throat was sprayed with Cetacaine. He received 2 mg intravenous Versed and 50 mcg intravenous fentanyl. After achieving moderate conscious sedated state, the probe was introduced into the esophagus without difficulty. The images were obtained. Following that, the probe was removed. There was no immediate complication. FINDINGS: Biatrial enlargement was noted. The left atrial appendage is normal. Left ventricular size is dilated. There is evidence of global hypokinesis with ejection fraction of 20% to 25%. The aortic valve revealed fibrocalcific changes of the aortic cusp with preserved opening. Mild thickening of the mitral valve leaflets was noted. Tricuspid valve is normal. Pulmonic valve is normal. Descending thoracic aorta appears to be normal. Contrast bubble study revealed no evidence of shunting across the interatrial septum. No pericardial effusion was noted. Pulse-wave and color Doppler was obtained and revealed moderate to severe mitral with mild to moderate tricuspid regurgitation. There was no shunting by color Doppler study. CONCLUSION: 1. Biatrial enlargement. 2. Dilated left ventricle with severely impaired left ventricular systolic function with global hypokinesis. 3. Thickening of the mitral valve leaflets with failure of coarctation and moderate to severe mitral regurgitation. 4. Mild to moderate tricuspid regurgitation. 5. No shunting across the interatrial septum. 6. Normal appearance of the descending thoracic aorta. MMODL / IJN: [id number] /
[2017-06-05] MEDS: SODIUM CHLORIDE 0.9% 1,000 ML IV SCH (15:54)
[2017-06-05] MEDS: RIVAROXABAN 20 MG TAB PO SCH (17:25)
--- NOTE | 2017-06-05 21:54 | US ---
EXAMINATION TYPE: US carotid duplex BILAT DATE OF EXAM: 06/05/2017 COMPARISON: NONE CLINICAL HISTORY: pre-op cardiac surgery. Precabg. No HTN. No hx of TIA's or strokes. EXAM MEASUREMENTS: RIGHT: Peak Systolic Velocity (PSV) cm/sec ----- Right CCA: 43.5 ----- Right ICA: 44.4 ----- Right ECA: 54.0 ICA/CCA ratio: 1.0 RIGHT: End Diastole cm/sec ----- Right CCA: 13.0 ----- Right ICA: 17.4 ----- Right ECA: 6.9 LEFT: Peak Systolic Velocity (PSV) cm/sec ----- Left CCA: 52.3 ----- Left ICA: 58.4 ----- Left ECA: 48.8 ICA/CCA ratio: 1.1 LEFT: End Diastole cm/sec ----- Left CCA: 15.6 ----- Left ICA: 31.3 ----- Left ECA: 8.6 VERTEBRALS (direction of flow): Right Vertebral: Antegrade Left Vertebral: Antegrade Rhythm: Arrhythmia No elevated velocities or significant stenosis. Bilateral wall thickening. Small amount of plaque see n in anterior left bulb. IMPRESSION: There is antegrade flow in the vertebral arteries. The images and measurements suggest l ess than 25% stenosis in both internal carotid arteries. Criteria for Assigning % of Stenosis / Diameter reduction (Estimation based on the indirect measurements of the internal carotid artery velocities (ICA PSV). 1. Normal (no stenosis)=ICA PSV < 125 cm/s: ratio < 2.0: ICA EDV<40 cm/s. 2. Less than 50% stenosis=ICA PSV < 125 cm/s: ratio < 2.0: ICA EDV<40 cm/s. 3. 50 to 69% stenosis=ICA PSV of 125 to 230 cm/s: ration 2.0 ? 4.0: ICA EDV 40-100 cm/s. 4. Greater than 70% stenosis to near occlusion= ICA PSV > 230 cm/s: ratio > 4.0: ICA EDV > 100 cm/s. 5. Near occlusion= ICA PSV velocities may be low or undetectable: variable ratio and ICA EDV. 6. Total occlusion=unable to detect flow.
[2017-06-06 06:30] LABS: HCT 37.3 % (39.0-53.0); HGB 11.8 gm/dL (13.0-17.5); MCH 27.6 pg (25.0-35.0); MCHC 31.6 g/dL (31.0-37.0); MCV 87.2 fL (80.0-100.0); Platelet Count 192 k/uL (150-450); RBC 4.28 m/uL (4.30-5.90); RDW 14.1 % (11.5-15.5); WBC 6.5 k/uL (3.8-10.6)
[2017-06-06 06:37] LABS: Anion Gap 9 mmol/L; Blood Urea Nitrogen 22 mg/dL (9-20); Calcium 8.4 mg/dL (8.4-10.2); Carbon Dioxide 35 mmol/L (22-30); Chloride 95 mmol/L (98-107); Cholesterol 69 mg/dL (<200); Glucose 100 mg/dL (74-99); HDL Cholesterol 32 mg/dL (40-60); LDL Cholesterol,Calculated 24 mg/dL (0-99); Potassium 3.5 mmol/L (3.5-5.1); Sodium 139 mmol/L (137-145); Triglycerides 67 mg/dL (<150)
[2017-06-06] MEDS: PANTOPRAZOLE 40 MG TABLET PO SCH (06:52)
[2017-06-06] MEDS: BALSALAZIDE DISODIUM 750 MG CAPSULE PO SCH ×3 (07:50→21:57)
[2017-06-06] MEDS: ASPIRIN 81 MG PO SCH (07:50)
[2017-06-06] MEDS: CYANOCOBALAMIN 500 MCG TAB PO SCH (07:50)
[2017-06-06] MEDS: SPIRONOLACTONE 25 MG TAB PO SCH (07:50)
[2017-06-06] MEDS: CHOLECALCIFEROL 1,000 UNIT TAB PO SCH (07:50)
[2017-06-06] MEDS: FUROSEMIDE 10 MG/ML 4 ML VIAL IV SCH ×2 (07:51→21:56)
[2017-06-06] MEDS: AMOXIC-POT CLAV 500-125 MG 1 EACH TAB PO SCH ×2 (07:51→21:56)
[2017-06-06] MEDS: predniSONE 20 MG TAB PO SCH (07:51)
[2017-06-06] MEDS: METOPROLOL TARTRATE 25 MG TAB PO SCH ×2 (07:51→21:57)
[2017-06-06] MEDS: SODIUM CHLORIDE 0.9% 1,000 ML IV SCH (07:52)
[2017-06-06] MEDS: MULTIVITAMINS, THERA 1 EACH TAB PO SCH (07:52)
[2017-06-06] MEDS: AMIODARONE 200 MG TAB PO SCH ×2 (07:53→21:56)
[2017-06-06] MEDS: IPRATROPIUM-ALBUTEROL 3 ML NEB INHALATION SCH ×3 (07:55→17:17)
--- NOTE | 2017-06-06 09:09 | P.GSCN ---
<Dinora Saeed - Last Filed: 06/06/17 08:37> History of Present Illness Consult date: 06/05/17 Reason for Consult: Coronary artery disease, mitral regurgitation, surgical recommendations Requesting physician: Iain Perry History of present illness: This is a 71-year-old gentleman who normally follows with Dr. Mauricio Keith on an outpatient basis. He has no real known chronic medical conditions he's being treated for other than Crohn's and BPH, he quit smoking in 1998. He was being treated by his primary care physician for tracheobronchitis with steroids and antibiotics, he did start to feel better but never quite return to his baseline. He then presented to [facility] on June 01 with increased shortness of breath with exertion, cough, fever, and was found to be in atrial fibrillation with rapid ventricular response which was new to him. Due to the need for higher level of care he was transferred to [facility] for treatment. He did have a computed tomography scan which demonstrated no pulmonary embolism, emphysematous changes to his lungs, and abnormal thoracic adenopathy. Transthoracic echocardiogram was completed demonstrating severe global hypokinesis of the left ventricle, severely impaired systolic function with an ejection fraction 25-30%, moderate to severe mitral and tricuspid regurgitation. Subsequently he underwent left heart catheterization demonstrating disease in the distal left main, approximately 40- 50% plaquing, moderate disease in the circumflex artery of approximately 40-50% , moderate disease in the right coronary artery of approximately 50% although FFR is 83% in the RCA. To further evaluate his valvular pathology, a transesophageal echocardiogram was completed on June 05 which again demonstrated severely impaired systolic function with EF 20-25%, thickening of the mitral valve leaflets with failure of coarctation and moderate to severe mitral regurgitation, mild to moderate tricuspid regurgitation. Dr. Davila from cardiothoracic surgery was consulted regarding surgical recommendations. Review of Systems 14 point review systems was completed and was negative except as noted. - Constitutional Reports as per HPI, Reports chills, Reports fever - Cardiovascular Reports as per HPI, Reports dyspnea on exertion, Reports irregular heart beat, Reports paroxysmal nocturnal dyspnea, Reports shortness of breath - Respiratory Reports as per HPI, Reports cough Past Medical History Past Medical History: Hearing Disorder / Deafness, Hypertension, Prostate Disorder, Renal Disease Additional Past Medical History / Comment(s): Crohn's disease, nephrolithiasis, BPH, hypertension, COPD, tinnitus bilateral along with hearing impairment. History of Any Multi-Drug Resistant Organisms: None Reported Past Surgical History: Hernia Repair, Tonsillectomy Additional Past Surgical History / Comment(s): lithotripsy, deviated septum, colonoscopies, umbilical and inguinal hernia repairs (laterality unknown). Past Anesthesia/Blood Transfusion Reactions: No Reported Reaction Past Psychological History: No Psychological Hx Reported Smoking Status: Former smoker Past Alcohol Use History: Rare Past Drug Use History: None Reported - Past Family History Father Family Medical History: Cancer, Congestive Heart Failure (CHF), Coronary Artery Disease (CAD) Additional Family Medical History / Comment(s): Father had prostrate cancer. Father had a CABG in his 70s Mother Family Medical History: CVA/TIA Additional Family Medical History / Comment(s): Mother of a CVA at the age of 53yrs. Medications and Allergies Home Medications Medication Instructions Recorded Confirmed Type Albuterol Sulfate [Proair Hfa] 1 - 2 puff INHALATION RT-Q6H PRN 06/01/17 History Aspirin 81 mg PO DAILY 06/01/17 06/01/17 History Cholecalciferol (Vitamin D3) 2,000 unit PO DAILY 06/01/17 06/01/17 History [Vitamin D3] Codeine Phosphate/Guaifenesin 5 - 10 ml PO Q6H PRN 06/01/17 06/01/17 History [Cheratussin AC Syrup] Cyanocobalamin (Vitamin B-12) 2,000 mcg PO DAILY 06/01/17 06/01/17 History [Vitamin B-12] Doxazosin Mesylate [Doxazosin 4 mg PO BID 06/01/17 06/01/17 History Mesylate] Mesalamine [Pentasa] 1,000 mg PO QID 06/01/17 06/01/17 History Multivitamin [Men's Multi-Vitamin] 1 tab PO DAILY 06/01/17 06/01/17 History Soolantra 1 applic TOPICAL DAILY 06/01/17 06/01/17 History Allergies Allergy/AdvReac Type Severity Reaction Status Date / Time No Known Allergies Allergy Verified 06/01/17 06:51 Surgical - Exam Vital Signs Temp Pulse Resp BP Pulse Ox 97.9 F 99 20 129/85 95 06/01/17 06:10 06/01/17 06:10 06/01/17 06:10 06/01/17 06:10 06/01/17 06:10 - General well developed, well nourished, no distress, no pain - Eyes PERRL, normal ocular movement - ENT Patient has full top dentures, bottom bridge no hearing loss, dentures - Neck no masses, no bruits, trachea midline - Respiratory Lungs sounds present bilaterally. Respirations even, nonlabored. Currently on room air with oxygen saturation 95%. - Cardiovascular S1, S2 present. Irregular rate and rhythm, controlled atrial fibrillation on telemetry. Palpable peripheral pulses bilaterally. No edema present. No calf pain or tenderness noted. Some varicosities present in his lower extremities. - Abdomen Abdomen: soft, non tender, bowel sounds - Genitourinary Deferred - Rectum Deferred - Integumentary no rash, no growths - Neurologic normal coordination, normal sensation - Musculoskeletal normal gait, normal posture - Psychiatric oriented to time, oriented to person, oriented to place, speech is normal, memory intact Results - Labs 06/06/17 06:05 06/06/17 06:05 Abnormal Lab Results - Last 24 Hours (Table) 06/06/17 06/06/17 Range/Units 06:05 06:05 RBC 4.28 L (4.30-5.90) m/uL Hgb 11.8 L (13.0-17.5) gm/dL Hct 37.3 L (39.0-53.0) % Chloride 95 L (98-107) mmol/L Carbon Dioxide 35 H (22-30) mmol/L BUN 22 H (9-20) mg/dL Glucose 100 H (74-99) mg/dL HDL Cholesterol 32 L (40-60) mg/dL Microbiology - Last 24 Hours (Table) 06/05/17 19:00 Nasal Screen MRSA/MSSA (JOSEPH) - Preliminary Nasal Swab 06/01/17 08:03 Blood Culture - Preliminary Blood No Growth after 96 hours 06/01/17 07:54 Blood Culture - Preliminary Blood No Growth after 96 hours Diabetes panel 06/06/17 Range/Units 06:05 Sodium 139 (137-145) mmol/L Potassium 3.5 (3.5-5.1) mmol/L Chloride 95 L (98-107) mmol/L Carbon Dioxide 35 H (22-30) mmol/L BUN 22 H (9-20) mg/dL Creatinine 0.90 (0.66-1.25) mg/dL Glucose 100 H (74-99) mg/dL Calcium 8.4 (8.4-10.2) mg/dL Triglycerides 67 (<150) mg/dL HDL Cholesterol 32 L (40-60) mg/dL Calcium panel 06/06/17 Range/Units 06:05 Calcium 8.4 (8.4-10.2) mg/dL Pituitary panel 06/06/17 Range/Units 06:05 Sodium 139 (137-145) mmol/L Potassium 3.5 (3.5-5.1) mmol/L Chloride 95 L (98-107) mmol/L Carbon Dioxide 35 H (22-30) mmol/L BUN 22 H (9-20) mg/dL Creatinine 0.90 (0.66-1.25) mg/dL Glucose 100 H (74-99) mg/dL Calcium 8.4 (8.4-10.2) mg/dL Adrenal panel 06/06/17 Range/Units 06:05 Sodium 139 (137-145) mmol/L Potassium 3.5 (3.5-5.1) mmol/L Chloride 95 L (98-107) mmol/L Carbon Dioxide 35 H (22-30) mmol/L BUN 22 H (9-20) mg/dL Creatinine 0.90 (0.66-1.25) mg/dL Glucose 100 H (74-99) mg/dL Calcium 8.4 (8.4-10.2) mg/dL - Imaging Chest x-ray: report reviewed, image reviewed CT scan - chest: report reviewed, image reviewed Additional studies: Results of echo, heart catheterization, RUT, carotid Dopplers reviewed. Assessment and Plan (1) Mitral regurgitation Current Visit: Yes Status: Chronic Code(s): I34.0 - NONRHEUMATIC MITRAL ( VALVE) INSUFFICIENCY SNOMED Code(s): 00100056 (2) History of Crohn's disease Current Visit: Yes Status: Chronic Code(s): Z87.19 - PERSONAL HISTORY OF OTHER DISEASES OF THE DIGESTIVE SYSTEM SNOMED Code(s): 967020967099737 (3) Tobacco dependence in remission Current Visit: No Status: Resolved Code(s): F17.201 - NICOTINE DEPENDENCE, UNSPECIFIED, IN REMISSION SNOMED Code(s): 992915950 (4) Acute systolic heart failure Current Visit: Yes Status: Acute Code(s): I50.21 - ACUTE SYSTOLIC ( CONGESTIVE) HEART FAILURE SNOMED Code(s): 113425557 (5) Family history of heart disease Current Visit: Yes Status: Chronic Code(s): Z82.49 - FAMILY HX OF ISCHEM HEART DIS AND OTH DIS OF THE CIRC SYS SNOMED Code(s): 542149692 (6) Tracheobronchitis Current Visit: Yes Status: Chronic Code(s): J40 - BRONCHITIS, NOT SPECIFIED ACUTE OR CHRONIC SNOMED Code(s): 27377550 (7) New onset a-fib Current Visit: Yes Status: Acute Code(s): I48.91 - UNSPECIFIED ATRIAL FIBRILLATION SNOMED Code(s): 79847515 Plan: The patient was seen and examined at the bedside with daughter present. Chart/ diagnostics were reviewed. Will be discussed with Dr. Davila. At this time, continue current management of tracheobronchitis, atrial fibrillation, heart failure. Encourage incentive spirometry use. Patient is currently on Xarelto for anticoagulation, would need to be off prior to any surgical intervention. Would need dental clearance prior to any valvular surgery as the patient does still have a few of his own teeth. We will provide supportive care and preoperative teaching. Preoperative testing to be ordered. More recommendations to follow. Thank you Dr. Perry for this consult. We look forward to working with you in the care of your patient. Time with Patient: Greater than 30 <Reinaldo Davila R - Last Filed: 06/06/17 14:34> Surgical - Exam Vital Signs Temp Pulse Resp BP Pulse Ox 97.9 F 99 20 129/85 95 06/01/17 06:10 06/01/17 06:10 06/01/17 06:10 06/01/17 06:10 06/01/17 06:10 Results - Labs 06/06/17 06:05 06/06/17 06:05 Abnormal Lab Results - Last 24 Hours (Table) 06/06/17 06/06/17 Range/Units 06:05 06:05 RBC 4.28 L (4.30-5.90) m/uL Hgb 11.8 L (13.0-17.5) gm/dL Hct 37.3 L (39.0-53.0) % Chloride 95 L (98-107) mmol/L Carbon Dioxide 35 H (22-30) mmol/L BUN 22 H (9-20) mg/dL Glucose 100 H (74-99) mg/dL HDL Cholesterol 32 L (40-60) mg/dL Microbiology - Last 24 Hours (Table) 06/01/17 08:03 Blood Culture - Preliminary Blood No Growth after 120 hours 06/01/17 07:54 Blood Culture - Preliminary Blood No Growth after 120 hours 06/05/17 22:19 Urine Culture - Preliminary Urine,Voided 06/05/17 19:00 Nasal Screen MRSA/MSSA (JOSEPH) - Preliminary Nasal Swab Diabetes panel 06/06/17 Range/Units 06:05 Sodium 139 (137-145) mmol/L Potassium 3.5 (3.5-5.1) mmol/L Chloride 95 L (98-107) mmol/L Carbon Dioxide 35 H (22-30) mmol/L BUN 22 H (9-20) mg/dL Creatinine 0.90 (0.66-1.25) mg/dL Glucose 100 H (74-99) mg/dL Calcium 8.4 (8.4-10.2) mg/dL Triglycerides 67 (<150) mg/dL HDL Cholesterol 32 L (40-60) mg/dL Calcium panel 06/06/17 Range/Units 06:05 Calcium 8.4 (8.4-10.2) mg/dL Pituitary panel 06/06/17 Range/Units 06:05 Sodium 139 (137-145) mmol/L Potassium 3.5 (3.5-5.1) mmol/L Chloride 95 L (98-107) mmol/L Carbon Dioxide 35 H (22-30) mmol/L BUN 22 H (9-20) mg/dL Creatinine 0.90 (0.66-1.25) mg/dL Glucose 100 H (74-99) mg/dL Calcium 8.4 (8.4-10.2) mg/dL Adrenal panel 06/06/17 Range/Units 06:05 Sodium 139 (137-145) mmol/L Potassium 3.5 (3.5-5.1) mmol/L Chloride 95 L (98-107) mmol/L Carbon Dioxide 35 H (22-30) mmol/L BUN 22 H (9-20) mg/dL Creatinine 0.90 (0.66-1.25) mg/dL Glucose 100 H (74-99) mg/dL Calcium 8.4 (8.4-10.2) mg/dL Assessment and Plan Assessment: 71-year-old male with shortness of breath. Echocardiogram demonstrates extremely poor left ventricular ejection fraction below 20% with inferolateral severe hypokinesis. Anterior wall is somewhat hypokinetic. Cardia catheterization demonstrates moderate to severe coronary artery disease in the mid right coronary artery as well as the left main distally at the bifurcation. Patient was seen and examined. Case was discussed with the nurse practitioner. Agree with her assessment as noted above. Case will be discussed with Dr. Perry. Based on this discussion plans for the patient management will be developed. Await return phone call from Dr. Perry.
--- NOTE | 2017-06-06 10:00 | PN ---
PROGRESS NOTE Mr. Alonso is a 71-year-old male who presented with symptoms of progressive dyspnea, was found to have paroxysmal fibrillation initially and evidence of severe cardiomyopathy. His cardiac catheterization revealed mild disease in the left main and the right coronary artery with severely impaired left ventricular systolic function and his transesophageal echocardiogram revealed moderate to severe mitral regurgitation. He is feeling better today. His breathing is better. He continues to be in atrial fibrillation. He denies any chest pain or palpitation. He is ambulating. He continues to be at this time on amiodarone 400 mg twice a day, aspirin once a day, Lasix 40 mg twice a day, lisinopril 10 mg daily, metoprolol tartrate 25 mg twice a day, and Xarelto 20 mg daily. PHYSICAL EXAMINATION: Blood pressure 107/70 with a heart in 90s. LUNGS: With few crackles at bases, improved compared with yesterday. HEART: Irregular regular S1, S2. No S3 with systolic murmur at the apex. No diastolic murmur. ABDOMEN: Soft, nontender. EXTREMITIES: No edema. LAB DATA: BUN and creatinine 22 and 0.9, potassium 3.5. Hemoglobin of 11.8. IMPRESSION: 1. Evidence of severe cardiomyopathy with coronary artery disease and significant mitral regurgitation. 2. Atrial fibrillation, persistent at this time. 3. Congestive heart failure. Improving. RECOMMENDATION: From the cardiac standpoint, we will continue current therapy. We will obtain a surgical intervention for possible mitral valve repair and coronary artery bypass grafting. In the meantime, we will continue present treatment and depending on his progress further recommendations will be made. MMODL / IJN: [id number] /
--- NOTE | 2017-06-06 11:03 | P.PN ---
Subjective Progress Note Date: 06/06/17 Principal diagnosis: shortness of breath Shortness of breath has improved, no chest pain no palpitation no fever Objective - Vital Signs Vital signs: Vital Signs Temp 97.0 F L 06/06/17 08:03 Pulse 92 06/06/17 08:10 Resp 20 06/06/17 08:03 BP 107/74 06/06/17 08:03 Pulse Ox 95 06/06/17 08:03 Intake & Output 06/05/17 06/06/17 06/06/17 18:59 06:59 18:59 Intake Total 626 240 Output Total 1375 800 Balance -749 -800 240 Weight 81.6 kg Intake: IV 150 Oral 476 240 Output: Urine 1375 800 Other: Voiding Method Toilet Toilet Toilet Urinal Urinal Urinal # Voids 3 1 # Bowel Movements 1 - Exam gen:alert and oriented lungs:clear to auscultation heart:s1s2 abdomen:soft and depressible,non tender ext:no edema - Labs CBC & Chem 7: 06/06/17 06:05 06/06/17 06:05 Labs: Abnormal Lab Results - Last 24 Hours (Table) 06/06/17 06/06/17 Range/Units 06:05 06:05 RBC 4.28 L (4.30-5.90) m/uL Hgb 11.8 L (13.0-17.5) gm/dL Hct 37.3 L (39.0-53.0) % Chloride 95 L (98-107) mmol/L Carbon Dioxide 35 H (22-30) mmol/L BUN 22 H (9-20) mg/dL Glucose 100 H (74-99) mg/dL HDL Cholesterol 32 L (40-60) mg/dL Microbiology - Last 24 Hours (Table) 06/01/17 08:03 Blood Culture - Preliminary Blood No Growth after 120 hours 06/01/17 07:54 Blood Culture - Preliminary Blood No Growth after 120 hours 06/05/17 22:19 Urine Culture - Preliminary Urine,Voided 06/05/17 19:00 Nasal Screen MRSA/MSSA (JOSEPH) - Preliminary Nasal Swab Assessment and Plan (1) Respiratory distress Narrative/Plan: Improving Combination of COPD and CHF Current Visit: Yes Status: Acute Code(s): R06.03 - ACUTE RESPIRATORY DISTRESS SNOMED Code(s): 595093474 (2) Atrial fibrillation with rapid ventricular response Narrative/Plan: Rate controlled Continue metoprolol and amiodarone Current Visit: Yes Status: Resolved Code(s): I48.91 - UNSPECIFIED ATRIAL FIBRILLATION SNOMED Code(s): 704000405355525 (3) Acute systolic heart failure Narrative/Plan: Improving On Lasix IV Current Visit: Yes Status: Acute Code(s): I50.21 - ACUTE SYSTOLIC ( CONGESTIVE) HEART FAILURE SNOMED Code(s): 789725456 (4) Emphysema lung Narrative/Plan: On prednisone Continue DuoNeb Current Visit: Yes Status: Acute Code(s): J43.9 - EMPHYSEMA, UNSPECIFIED SNOMED Code(s): 85549284 (5) Mitral regurgitation Narrative/Plan: Cardiothoracic surgery consulted We'll await opinion on patient being candidate for surgery Current Visit: Yes Status: Chronic Code(s): I34.0 - NONRHEUMATIC MITRAL ( VALVE) INSUFFICIENCY SNOMED Code(s): 70395986
[2017-06-06 11:15] LABS: Hemoglobin A1C 5.7 % (4.0-6.0)
[2017-06-06 12:27] LABS: Hepatitis A Antibody IgM Non-Reactive (Non-Reactive); Hepatitis B Core IgM Non-Reactive (Non-Reactive)
[2017-06-06] MEDS: DOXAZOSIN 4 MG TAB PO SCH ×2 (13:23→21:56)
[2017-06-06] MEDS: LISINOPRIL 10 MG TAB PO SCH (13:23)
--- NOTE | 2017-06-06 15:10 | P.PN ---
Subjective Progress Note Date: 06/06/17 This is a very pleasant 71-year-old gentleman who follows with Dr. Mauricio Keith as his primary care physician. He has history of Crohn's disease, nephrolithiasis status post lithotripsy him a BPH, hypertension, tinnitus. He has has a history of previous tobacco dependence and suspected COPD. He has not been seen by a qa test analyst in the past. He had been having ongoing issues with shortness of breath, yellow productive sputum. He had been treated for bronchitis 2 with antibiotics and steroids. Never quite back to his baseline. He did have a fever of 102.4. He presented to the emergency room at [facility] with increasing shortness of breath, cough, congestion palpitations. He was found to be in atrial fibrillation with a rapid ventricular response and was subsequently transferred here to [facility] yesterday morning. His chest x-ray did reveal evidence of fluid volume overload and congestive heart failure. An echocardiogram revealed severely impaired left ventricular systolic function with ejection fraction 25-30%. There is also noted severe global hypokinesia. He has moderate to severe mitral regurgitation. Moderate to severe tricuspid regurgitation. Moderate pulmonary hypertension with an RVSP of 57.96 mmHg. ProBNP 6190. Creatinine 1.20. He has been initiated on Lasix 20 mg IV push every 12 hours. He is seen today in consultation on the selective care unit. He is currently sitting up in a chair at the bedside. He is awake and alert in no acute distress. He is breathing easier today as compared to yesterday. He is maintaining good O2 saturations in the 90s on room air. He has since converted back to normal sinus rhythm. He is afebrile. No fever chills or night sweats. No productive cough. The cultures reveal no growth to date. He has been initiated on Xarelto. He is also on bronchodilators, IV Solu-Medrol and antibiotics in the form of Augmentin. The patient is seen again today 06/03/2017 in follow-up on the selective care unit. He is currently resting comfortably in bed. He did undergo cardiac catheterization this morning. Report is pending. Further interventions are being discussed. He denies any shortness of breath currently. No chest pain or palpitations. He is currently maintaining good O2 saturations in the 90s on room air. He is hemodynamically stable. Blood and sputum cultures reveal no growth to date. White count 9.7. Hemoglobin 10.9. Creatinine 1.41. He is currently on bronchodilators, IV Solu-Medrol, Augmentin. Xarelto currently on hold. On 06/04/2017 patient seen in follow-up on [facility] care unit. Patient underwent cardiac catheterization on 06/03/2017 was found to have moderate disease in the distal left main and the mid RCA and moderate disease in the proximal left circumflex. In the plan is to treat him medically for his coronary artery disease. Yesterday in the afternoon patient back into atrial fibrillation with RVR, started on Cardizem drip, and currently his rate is ranging anywhere from 80-110 BPM. Patient had an episode of acute respiratory distress this morning, she was tachypneic, coughing, and was given 40 mg of IV Lasix for what appeared to be acute pulmonary edema. Chest x-ray was obtained, and showed pulmonary venous hypertension, and interstitial edema. Patient was placed on 100% nonrebreather, once releasing his FiO2 was weaned back down, and currently the patient is on 3 L per nasal cannula with O2 sat 94%. She remains on oral prednisone, Xarelto for anticoagulation. Responded well to IV diuretics. On 06/05/2088 seeing Cb for a follow-up. Obviously the patient is less short of breath compared to yesterday. Note that the patient went into an acute pulmonary edema yesterday and he became acutely short of breath. He responded nicely to diuretics. He is going to have a RUT to evaluate the mitral valve regurgitation today and its severity. The patient is still in atrial fibrillation. Rate is under better control and the patient is currently off the Cardizem drip. He has having no chest pain. No nausea. No vomiting. No cough or sputum production. Cardiology is on the case and the patient is currently anticoagulated with Xarelto. He is also on metoprolol 25 mg by mouth twice a day and amiodarone 400 mg by mouth twice a day and the patient is also on a combination of Lasix and Aldactone. The patient is also completing a course of Augmentin and a prednisone burst taper regarding acute bronchitis/ COPD exacerbation. For now the plan is to proceed with cardiac evaluation with RUT. On 06/06/2017, I'm seeing this patient for a follow-up. Overall poor status is stable and the patient is less short of breath compared to yesterday. He is still being investigated regarding his valvular disease knowing that he has severe mitral regurgitation and he may be a potentially candidate for mitral valve repair. History nature fibrillation at the rate is controlled. He is on anticoagulation for now and he is on Xarelto. No chest pain. No angina. No nausea. No vomiting. No swelling in lower extremities. On and off is still coughing and he is being treated with a prednisone burst taper regarding his COPD exacerbation is also on a course of Augmentin. The patient was seen by Dr. Reinaldo Davila. He is on Lasix 40 mg IV every 12 hours. He is also on Aldactone 25 minutes by mouth daily. No other significant events over the past 24 hours. He is also on amiodarone 400 mg by mouth twice a day in addition to his beta billy 25 mg of metoprolol twice a day. Objective - Vital Signs Vital signs: Vital Signs Temp 97.3 F L 06/06/17 11:46 Pulse 92 06/06/17 11:47 Resp 22 06/06/17 11:47 BP 107/65 06/06/17 11:46 Pulse Ox 99 06/06/17 11:46 Intake & Output 06/05/17 06/06/17 06/06/17 18:59 06:59 18:59 Intake Total 626 420 Output Total 1375 800 900 Balance -749 -800 -548 Weight 81.6 kg Intake: IV 150 Oral 476 420 Output: Urine 1375 800 900 Other: Voiding Method Toilet Toilet Toilet Urinal Urinal Urinal # Voids 3 1 3 # Bowel Movements 1 1 - Exam GENERAL EXAM: Alert, active, comfortable in no apparent distress. HEAD: Normocephalic. EYES: Normal reaction of pupils, equal size. NOSE: Clear with pink turbinates. THROAT: No erythema or exudates. NECK: No masses, no JVD. CHEST: No chest wall deformity. LUNGS: Equal air entry with wheezing and laterally. Diminished breath sounds, few crackles at lung bases bilaterally CVS: Irregular S1 and S2 normal with an audible murmur, irregular rhythm consistent with atrial fibrillation yet the rate is under better control for now ABDOMEN: No hepatosplenomegaly, normal bowel sounds, no guarding or rigidity. SPINE: No scoliosis or deformity SKIN: No rashes CENTRAL NERVOUS SYSTEM: No focal deficits, tone is normal in all 4 extremities. EXTREMITIES: There is trace peripheral edema. No clubbing, no cyanosis. Peripheral pulses are intact. - Labs CBC & Chem 7: 06/06/17 06:05 06/06/17 06:05 Labs: Abnormal Lab Results - Last 24 Hours (Table) 06/06/17 06/06/17 Range/Units 06:05 06:05 RBC 4.28 L (4.30-5.90) m/uL Hgb 11.8 L (13.0-17.5) gm/dL Hct 37.3 L (39.0-53.0) % Chloride 95 L (98-107) mmol/L Carbon Dioxide 35 H (22-30) mmol/L BUN 22 H (9-20) mg/dL Glucose 100 H (74-99) mg/dL HDL Cholesterol 32 L (40-60) mg/dL Microbiology - Last 24 Hours (Table) 06/01/17 08:03 Blood Culture - Preliminary Blood No Growth after 120 hours 06/01/17 07:54 Blood Culture - Preliminary Blood No Growth after 120 hours 06/05/17 22:19 Urine Culture - Preliminary Urine,Voided 06/05/17 19:00 Nasal Screen MRSA/MSSA (JOSEPH) - Preliminary Nasal Swab Assessment and Plan Plan: Assessment 1 shortness of breath secondary to a combination of COPD and CHF exacerbation. Upon further investigation the patient was found to have significant cardiac disease and a cardiac catheterization showed moderate disease involving the mid RCA and the distal left main. Echocardiogram also showed a moderate to severe mitral regurgitation and the patient will be having a RUT to evaluate the severity of the MR. The patient was in acute pulmonary edema yesterday and he responded nicely to diuretics. He is improved compared to yesterday and is on a combination of Lasix and Aldactone. On 06/06/2017, the patient is less short of breath. RUT was completed and the patient is being investigated for possible cardiac surgery regarding mitral valve replacement. He also has also coronary artery disease and the patient has underlying cardiomyopathy with impaired LV function. Nevertheless, shortness of breath improved as the patient's A. fib is under better control and the patient has been diuresed adequately and his acute COPD exacerbation is also being treated with a combination of bronchodilators and prednisone burst taper and a course of Augmentin. 2 diffuse emphysema with centrilobular changes as evident on the CAT scan of the chest 3 bilateral pleural effusion, small, right more than left, likely related to CHF 4 atrial fibrillation with rapid ventricular response, and the patient is currently still in atrial fibrillation and the rates controlled a combination of metoprolol 25 mg by mouth twice a day and amiodarone from milligrams by mouth twice a day. The patient is also on long-term and to coagulation with Xarelto regarding the atrial fibrillation. 5 CHF with an ejection fraction of 25-30% based on echocardiogram. The patient also the valvular changes with MR and TR and the patient has a right ventricular estimated systolic pressure of around 57 mmHg. The patient echocardiac Nba showed elevation of the right atrial pressure based on the absence of collapsibility of the IVC. No pericardial effusion. 6 BPH 7 Crohn's disease 8 hypertension 9 nephrolithiasis Plan Complete the Augmentin and a prednisone burst taper. Continue IV Lasix. Continue Aldactone. Continue deterioration with Xarelto. Rate control regarding atrial fibrillation with a combination of amiodarone and metoprolol. Cardiac surgery evaluation. We'll continue to follow.
[2017-06-06] MEDS: RIVAROXABAN 20 MG TAB PO SCH (17:18)
[2017-06-07 06:32] LABS: Anion Gap 9 mmol/L; Blood Urea Nitrogen 25 mg/dL (9-20); Calcium 8.5 mg/dL (8.4-10.2); Carbon Dioxide 36 mmol/L (22-30); Chloride 94 mmol/L (98-107); Potassium 3.3 mmol/L (3.5-5.1); Sodium 139 mmol/L (137-145)
[2017-06-07 06:34] LABS: Glucose 96 mg/dL (74-99)
[2017-06-07] MEDS: PANTOPRAZOLE 40 MG TABLET PO SCH (06:40)
[2017-06-07] MEDS: IPRATROPIUM-ALBUTEROL 3 ML NEB INHALATION PRN ×2 (07:42→20:43)
--- NOTE | 2017-06-07 07:56 | P.PN ---
Subjective Progress Note Date: 06/07/17 Principal diagnosis: shortness of breath The patient's breathing is better. No chest pain no fever. Objective - Vital Signs Vital signs: Vital Signs Temp 97.1 F L 06/07/17 04:00 Pulse 88 06/07/17 07:42 Resp 18 06/07/17 04:00 BP 92/51 06/07/17 04:00 Pulse Ox 99 06/07/17 04:00 Intake & Output 06/06/17 06/07/17 06/07/17 18:59 06:59 18:59 Intake Total 660 Output Total 1301 1300 Balance -641 -1300 Weight 81.7 kg Intake: Oral 660 Output: Urine 1300 1300 Urine/Stool Mix 1 Other: Voiding Method Toilet Urinal Urinal # Voids 1 # Bowel Movements 1 - Exam gen:alert and oriented lungs:clear to auscultation, no crackles no wheezes heart:s1s2 abdomen:soft and depressible,non tender ext:no edema - Labs CBC & Chem 7: 06/06/17 06:05 06/07/17 06:00 Labs: Abnormal Lab Results - Last 24 Hours (Table) 06/07/17 Range/Units 06:00 Potassium 3.3 L (3.5-5.1) mmol/L Chloride 94 L (98-107) mmol/L Carbon Dioxide 36 H (22-30) mmol/L BUN 25 H (9-20) mg/dL Microbiology - Last 24 Hours (Table) 06/01/17 08:03 Blood Culture - Preliminary Blood No Growth after 120 hours 06/01/17 07:54 Blood Culture - Preliminary Blood No Growth after 120 hours 06/05/17 22:19 Urine Culture - Preliminary Urine,Voided Assessment and Plan (1) Respiratory distress Narrative/Plan: Doing good today had no shortness of breath walking to the bathroom. Patient pulse ox 93% on room air Current Visit: Yes Status: Acute Code(s): R06.03 - ACUTE RESPIRATORY DISTRESS SNOMED Code(s): 499389151 (2) Atrial fibrillation with rapid ventricular response Narrative/Plan: Rate controlled Continue amiodarone and metoprolol Current Visit: Yes Status: Resolved Code(s): I48.91 - UNSPECIFIED ATRIAL FIBRILLATION SNOMED Code(s): 834775938048431 (3) Acute systolic heart failure Narrative/Plan: Better compensated Lasix 40 mg every 12 Lisinopril Current Visit: Yes Status: Acute Code(s): I50.21 - ACUTE SYSTOLIC ( CONGESTIVE) HEART FAILURE SNOMED Code(s): 443369523 (4) Emphysema lung Narrative/Plan: Prednisone taper Current Visit: Yes Status: Acute Code(s): J43.9 - EMPHYSEMA, UNSPECIFIED SNOMED Code(s): 34275350 (5) Mitral regurgitation Narrative/Plan: Await input from cardiothoracic surgery and cardiology regarding need for valve replacement Current Visit: Yes Status: Chronic Code(s): I34.0 - NONRHEUMATIC MITRAL ( VALVE) INSUFFICIENCY SNOMED Code(s): 06770038
[2017-06-07 08:08] LABS: HCT 36.5 % (39.0-53.0); HGB 11.8 gm/dL (13.0-17.5); MCHC 32.3 g/dL (31.0-37.0); MCV 86.5 fL (80.0-100.0); Platelet Count 235 k/uL (150-450); RBC 4.22 m/uL (4.30-5.90)
[2017-06-07] MEDS ORDERED: Potassium Replacement Protocol 1 EACH MISC MISCELLANE PRN (08:28)
[2017-06-07] MEDS: BALSALAZIDE DISODIUM 750 MG CAPSULE PO SCH ×3 (08:34→20:23)
[2017-06-07] MEDS: METOPROLOL TARTRATE 25 MG TAB PO SCH ×2 (08:34→20:23)
[2017-06-07] MEDS: CHOLECALCIFEROL 1,000 UNIT TAB PO SCH (08:35)
[2017-06-07] MEDS: predniSONE 20 MG TAB PO SCH (08:35)
[2017-06-07] MEDS: CYANOCOBALAMIN 500 MCG TAB PO SCH (08:36)
[2017-06-07] MEDS: FUROSEMIDE 10 MG/ML 4 ML VIAL IV SCH (08:36)
[2017-06-07] MEDS: AMIODARONE 200 MG TAB PO SCH ×3 (08:36→20:22)
[2017-06-07] MEDS: ASPIRIN 81 MG PO SCH (08:37)
[2017-06-07] MEDS: SPIRONOLACTONE 25 MG TAB PO SCH (08:37)
[2017-06-07] MEDS: AMOXIC-POT CLAV 500-125 MG 1 EACH TAB PO SCH ×2 (08:37→20:22)
[2017-06-07] MEDS: MULTIVITAMINS, THERA 1 EACH TAB PO SCH (08:37)
[2017-06-07] MEDS: POTASSIUM CHLORIDE ER 20 MEQ TAB.ER PO SCH ×2 (10:16→11:37)
--- NOTE | 2017-06-07 10:16 | P.PN ---
<Dinora Saeed - Last Filed: 06/07/17 10:10> Subjective Progress Note Date: 06/07/17 Principal diagnosis: Coronary artery disease, mitral regurgitation. Acute systolic heart failure with ejection fraction 20-25%. Previous medical history of Crohn's, BPH, previous tobacco dependence with current FEV1 58% of predicted. Recent tracheobronchitis. New-onset atrial fibrillation, currently on amiodarone and Xarelto. Patient's currently sitting up in the chair in no acute distress. Denies any chest pain or discomfort. He does still have some shortness of breath with exertion that states he feels significantly better Objective - Vital Signs Vital signs: Vital Signs Temp 97.0 F L 06/07/17 08:53 Pulse 70 06/07/17 08:55 Resp 18 06/07/17 08:55 BP 100/55 06/07/17 08:53 Pulse Ox 91 L 06/07/17 08:53 Intake & Output 06/06/17 06/07/17 06/07/17 18:59 06:59 18:59 Intake Total 660 480 Output Total 1300 1300 200 Balance -640 -1300 280 Weight 81.7 kg Intake: Oral 660 480 Output: Urine 1300 1300 200 Other: Voiding Method Toilet Urinal Toilet Urinal Urinal # Voids 1 1 # Bowel Movements 1 1 - Constitutional General appearance: Present: cooperative, no acute distress - Respiratory Details: Lungs sounds present bilaterally. Respirations even, nonlabored. Currently on room air with oxygen saturation 91%. Able to achieve 2500 mL on his incentive spirometry. - Cardiovascular Details: S1, S2 present. Regular rate and rhythm, sinus rhythm on telemetry. Palpable peripheral pulses bilaterally. No edema present. No calf pain or tenderness noted. - Gastrointestinal Gastrointestinal Comment(s): Abdomen soft, nontender, nondistended. Active bowel sounds 4 quadrants. Tolerating diet. - Genitourinary Genitourinary Comment(s): Continues to void clear, yellow urine. - Integumentary Integumentary Comment(s): Skin is warm and dry with evidence of good perfusion. - Neurologic Neurologic: Present: CNII-XII intact - Musculoskeletal Musculoskeletal: Present: gait normal, strength equal bilaterally - Psychiatric Psychiatric: Present: A&O x's 3, appropriate affect, intact judgment & insight - Allied health notes Allied health notes reviewed: nursing - Labs CBC & Chem 7: 06/07/17 06:00 06/07/17 06:00 Labs: Abnormal Lab Results - Last 24 Hours (Table) 06/07/17 06/07/17 Range/Units 06:00 06:00 RBC 4.22 L (4.30-5.90) m/uL Hgb 11.8 L (13.0-17.5) gm/dL Hct 36.5 L (39.0-53.0) % Potassium 3.3 L (3.5-5.1) mmol/L Chloride 94 L (98-107) mmol/L Carbon Dioxide 36 H (22-30) mmol/L BUN 25 H (9-20) mg/dL Microbiology - Last 24 Hours (Table) 06/05/17 19:00 Nasal Screen MRSA/MSSA (JOSEPH) - Final Nasal Swab 06/01/17 08:03 Blood Culture - Preliminary Blood No Growth after 120 hours 06/01/17 07:54 Blood Culture - Preliminary Blood No Growth after 120 hours 06/05/17 22:19 Urine Culture - Preliminary Urine,Voided Assessment and Plan (1) Mitral regurgitation Current Visit: Yes Status: Chronic Code(s): I34.0 - NONRHEUMATIC MITRAL ( VALVE) INSUFFICIENCY SNOMED Code(s): 46593335 (2) History of Crohn's disease Current Visit: Yes Status: Chronic Code(s): Z87.19 - PERSONAL HISTORY OF OTHER DISEASES OF THE DIGESTIVE SYSTEM SNOMED Code(s): 294488513449662 (3) Tobacco dependence in remission Current Visit: No Status: Resolved Code(s): F17.201 - NICOTINE DEPENDENCE, UNSPECIFIED, IN REMISSION SNOMED Code(s): 876816186 (4) Acute systolic heart failure Current Visit: Yes Status: Acute Code(s): I50.21 - ACUTE SYSTOLIC ( CONGESTIVE) HEART FAILURE SNOMED Code(s): 186202122 (5) Family history of heart disease Current Visit: Yes Status: Chronic Code(s): Z82.49 - FAMILY HX OF ISCHEM HEART DIS AND OTH DIS OF THE CIRC SYS SNOMED Code(s): 250075324 (6) Tracheobronchitis Current Visit: Yes Status: Chronic Code(s): J40 - BRONCHITIS, NOT SPECIFIED ACUTE OR CHRONIC SNOMED Code(s): 42495080 (7) New onset a-fib Current Visit: Yes Status: Acute Code(s): I48.91 - UNSPECIFIED ATRIAL FIBRILLATION SNOMED Code(s): 42793935 Plan: 1. Continue aspirin, beta billy, DORIE inhibitor, Lasix, Aldactone. 2. Continue amiodarone for A. fib prophylaxis. 3. Encourage incentive spirometry use 10 times every hour. 4. Increase activity, ambulate in hallway. 5. Reinforce preoperative teaching. 6. Case discussed between Dr. Perry and Dr. Davila. Likely will plan for mitral valve surgery, CABG, Schuler maze on June 09. Will discuss with patient and family. 7. More recommendations to follow. Time with Patient: Greater than 30 <Reinaldo Davila R - Last Filed: 06/07/17 13:14> Objective - Vital Signs Vital signs: Vital Signs Temp 97 F L 06/07/17 11:44 Pulse 72 06/07/17 11:44 Resp 20 06/07/17 11:44 BP 110/75 06/07/17 11:44 Pulse Ox 96 06/07/17 11:44 Intake & Output 06/06/17 06/07/17 06/07/17 18:59 06:59 18:59 Intake Total 660 480 Output Total 1300 1300 200 Balance -640 -1300 280 Weight 81.7 kg Intake: Oral 660 480 Output: Urine 1300 1300 200 Other: Voiding Method Toilet Urinal Toilet Urinal Urinal # Voids 1 1 # Bowel Movements 1 1 - Labs CBC & Chem 7: 06/07/17 11:02 06/07/17 06:00 Labs: Abnormal Lab Results - Last 24 Hours (Table) 06/07/17 06/07/17 06/07/17 Range/Units 06:00 06:00 11:02 RBC 4.22 L 4.24 L (4.30-5.90) m/uL Hgb 11.8 L 11.8 L (13.0-17.5) gm/dL Hct 36.5 L 36.8 L (39.0-53.0) % Lymphocytes # 0.5 L (1.0-4.8) k/uL PT (9.0-12.0) sec INR (<1.2) Potassium 3.3 L (3.5-5.1) mmol/L Chloride 94 L (98-107) mmol/L Carbon Dioxide 36 H (22-30) mmol/L BUN 25 H (9-20) mg/dL 06/07/17 Range/Units 11:02 RBC (4.30-5.90) m/uL Hgb (13.0-17.5) gm/dL Hct (39.0-53.0) % Lymphocytes # (1.0-4.8) k/uL PT 12.8 H (9.0-12.0) sec INR 1.4 H (<1.2) Potassium (3.5-5.1) mmol/L Chloride (98-107) mmol/L Carbon Dioxide (22-30) mmol/L BUN (9-20) mg/dL Microbiology - Last 24 Hours (Table) 06/05/17 22:19 Urine Culture - Final Urine,Voided 06/01/17 08:03 Blood Culture - Final Blood No Growth after 144 hours 06/01/17 07:54 Blood Culture - Final Blood No Growth after 144 hours 06/05/17 19:00 Nasal Screen MRSA/MSSA (JOSEPH) - Final Nasal Swab Assessment and Plan Assessment: Case discussed at length with Dr. Perry and Dr. Kuhn. Plan is to proceed with coronary bypass grafting and mitral valve repair with modified Schuler maze on June 09. Indications for procedure, alternative therapies, risks versus benefits, possible complications, usual perioperative course were discussed with the patient and his daughter. His was listening by phone. All of their questions were answered. Plan is to proceed with surgery on Thursday. STS risk was discussed with the patient.
[2017-06-07] MEDS ORDERED: HEPARIN SODIUM,PORCINE 5,000 UNIT/ML 1 ML VIAL IV PRN (10:55)
--- NOTE | 2017-06-07 11:07 | PN ---
PROGRESS NOTE Mr. Alonso 71-year-old male who presented with symptoms of upper respiratory infection and subsequently had findings consistent with a severe cardiomyopathy. His cardiac catheterization revealed evidence of left main disease with significant mitral regurgitation on his transesophageal echocardiogram. He is back in sinus mechanism at this time and is feeling better. He is ambulating without difficulty. He denying any chest pain. No dizziness. No palpitation. He denies any nausea. He continues to be on amiodarone 400 mg twice a day, aspirin 81 mg daily. Xarelto 20 mg daily, Lasix 40 mg IV q.12 hours lisinopril 10 mg daily, metoprolol tartrate 25 mg twice a day, and Aldactone 25 mg daily. PHYSICAL EXAMINATION: Blood pressure 100/50 with a heart rate in the 70s. LUNGS: Clear. Heart irregular rate and rhythm, S1, S2. No S3 with a holosystolic murmur at the apex. No diastolic murmur. ABDOMEN: Soft, nontender. EXTREMITIES: No edema. LAB DATA: With potassium 3.3, BUN and creatinine 25 and 0.9, hemoglobin of 11.8. IMPRESSION: 1. Severe cardiomyopathy with significant mitral regurgitation. His findings are suggestive that his history has been going on longer than he thought with the dilatation of left ventricle and the left atrium. 2. Coronary artery disease. 3. Paroxysmal atrial fibrillation, back in sinus mechanism. RECOMMENDATION: The patient will be evaluated by the surgical team for possible surgical intervention early next week. I will stop the Xarelto, put back on heparin. We will replace his potassium. I will switch him to oral diuretic and depending on his progress, further recommendation will be made. MMODL / IJN: [id number] /
[2017-06-07 11:21] LABS: Basophils % (A) 0 %; Eosinophils % (A) 0 %; HCT 36.8 % (39.0-53.0); HGB 11.8 gm/dL (13.0-17.5); Lymphocytes # (A) 0.5 k/uL (1.0-4.8); Lymphocytes % (A) 6 %; MCH 27.9 pg (25.0-35.0); MCHC 32.1 g/dL (31.0-37.0); MCV 86.7 fL (80.0-100.0); Mean Platelet Volume 8.1; Monocytes # (A) 0.6 k/uL (0-1.0); Monocytes % (A) 6 %; Neutrophils # (A) 7.7 k/uL (1.3-7.7); Neutrophils % (A) 85 %; Platelet Count 247 k/uL (150-450); RBC 4.24 m/uL (4.30-5.90); RDW 13.9 % (11.5-15.5)
[2017-06-07 11:29] LABS: INR 1.4 (<1.2); Partial Thromboplastin Time 24.9 sec (22.0-30.0); Prothrombin Time 12.8 sec (9.0-12.0)
[2017-06-07] MEDS: DOXAZOSIN 4 MG TAB PO SCH ×2 (11:37→20:23)
[2017-06-07] MEDS: LISINOPRIL 10 MG TAB PO SCH (11:39)
--- NOTE | 2017-06-07 12:27 | P.PN ---
Subjective Progress Note Date: 06/07/17 This is a very pleasant 71-year-old gentleman who follows with Dr. Mauricio Keith as his primary care physician. He has history of Crohn's disease, nephrolithiasis status post lithotripsy him a BPH, hypertension, tinnitus. He has has a history of previous tobacco dependence and suspected COPD. He has not been seen by a nurses director in the past. He had been having ongoing issues with shortness of breath, yellow productive sputum. He had been treated for bronchitis 2 with antibiotics and steroids. Never quite back to his baseline. He did have a fever of 102.4. He presented to the emergency room at [facility] with increasing shortness of breath, cough, congestion palpitations. He was found to be in atrial fibrillation with a rapid ventricular response and was subsequently transferred here to [facility] yesterday morning. His chest x-ray did reveal evidence of fluid volume overload and congestive heart failure. An echocardiogram revealed severely impaired left ventricular systolic function with ejection fraction 25-30%. There is also noted severe global hypokinesia. He has moderate to severe mitral regurgitation. Moderate to severe tricuspid regurgitation. Moderate pulmonary hypertension with an RVSP of 57.96 mmHg. ProBNP 6190. Creatinine 1.20. He has been initiated on Lasix 20 mg IV push every 12 hours. He is seen today in consultation on the selective care unit. He is currently sitting up in a chair at the bedside. He is awake and alert in no acute distress. He is breathing easier today as compared to yesterday. He is maintaining good O2 saturations in the 90s on room air. He has since converted back to normal sinus rhythm. He is afebrile. No fever chills or night sweats. No productive cough. The cultures reveal no growth to date. He has been initiated on Xarelto. He is also on bronchodilators, IV Solu-Medrol and antibiotics in the form of Augmentin. The patient is seen again today 06/03/2017 in follow-up on the selective care unit. He is currently resting comfortably in bed. He did undergo cardiac catheterization this morning. Report is pending. Further interventions are being discussed. He denies any shortness of breath currently. No chest pain or palpitations. He is currently maintaining good O2 saturations in the 90s on room air. He is hemodynamically stable. Blood and sputum cultures reveal no growth to date. White count 9.7. Hemoglobin 10.9. Creatinine 1.41. He is currently on bronchodilators, IV Solu-Medrol, Augmentin. Xarelto currently on hold. On 06/04/2017 patient seen in follow-up on [facility] care unit. Patient underwent cardiac catheterization on 06/03/2017 was found to have moderate disease in the distal left main and the mid RCA and moderate disease in the proximal left circumflex. In the plan is to treat him medically for his coronary artery disease. Yesterday in the afternoon patient back into atrial fibrillation with RVR, started on Cardizem drip, and currently his rate is ranging anywhere from 80-110 BPM. Patient had an episode of acute respiratory distress this morning, she was tachypneic, coughing, and was given 40 mg of IV Lasix for what appeared to be acute pulmonary edema. Chest x-ray was obtained, and showed pulmonary venous hypertension, and interstitial edema. Patient was placed on 100% nonrebreather, once releasing his FiO2 was weaned back down, and currently the patient is on 3 L per nasal cannula with O2 sat 94%. She remains on oral prednisone, Xarelto for anticoagulation. Responded well to IV diuretics. On 06/05/2088 seeing Cb for a follow-up. Obviously the patient is less short of breath compared to yesterday. Note that the patient went into an acute pulmonary edema yesterday and he became acutely short of breath. He responded nicely to diuretics. He is going to have a RUT to evaluate the mitral valve regurgitation today and its severity. The patient is still in atrial fibrillation. Rate is under better control and the patient is currently off the Cardizem drip. He has having no chest pain. No nausea. No vomiting. No cough or sputum production. Cardiology is on the case and the patient is currently anticoagulated with Xarelto. He is also on metoprolol 25 mg by mouth twice a day and amiodarone 400 mg by mouth twice a day and the patient is also on a combination of Lasix and Aldactone. The patient is also completing a course of Augmentin and a prednisone burst taper regarding acute bronchitis/ COPD exacerbation. For now the plan is to proceed with cardiac evaluation with RUT. On 06/06/2017, I'm seeing this patient for a follow-up. Overall poor status is stable and the patient is less short of breath compared to yesterday. He is still being investigated regarding his valvular disease knowing that he has severe mitral regurgitation and he may be a potentially candidate for mitral valve repair. History nature fibrillation at the rate is controlled. He is on anticoagulation for now and he is on Xarelto. No chest pain. No angina. No nausea. No vomiting. No swelling in lower extremities. On and off is still coughing and he is being treated with a prednisone burst taper regarding his COPD exacerbation is also on a course of Augmentin. The patient was seen by Dr. Reinaldo Davila. He is on Lasix 40 mg IV every 12 hours. He is also on Aldactone 25 minutes by mouth daily. No other significant events over the past 24 hours. He is also on amiodarone 400 mg by mouth twice a day in addition to his beta billy 25 mg of metoprolol twice a day. On 06/05/2017, the patient is feeling much better. He is off oxygen. His emanating. A bedside spirometry was done and his FEV1 is normal to 58% of predicted consistent with COPD yet this can be and also a underestimation of the lung capacity knowing that the patient was in CHF and had lateral pleural effusions. In any rate his cardiac rhythm is back to sinus. He is having paroxysmal atrial fibrillation and this morning he was noted to be in sinus rhythm. No chest pain. No major swelling lower extremities. No altered mentation. He is completing a prednisone burst taper regarding his COPD exacerbation. I elected discussion about this case with cardiology and cardiothoracic surgery. The patient will need surgery knowing that he has severe mitral regurgitation. The images were reviewed by the surgeon. The consensus is that the patient will need an intra-aortic balloon pump placed to optimize his postoperative recovery. If surgery is being contemplated, this will be done probably on Thursday with insertion of intra-aortic balloon pump. The patient otherwise is doing well. He is on oral Lasix. Is on Zestril. Is on Lopressor. He is on a prednisone burst taper. No fever or chills. No other complaints otherwise for now. Objective - Vital Signs Vital signs: Vital Signs Temp 97 F L 06/07/17 11:44 Pulse 72 06/07/17 11:44 Resp 20 06/07/17 11:44 BP 110/75 06/07/17 11:44 Pulse Ox 96 06/07/17 11:44 Intake & Output 06/06/17 06/07/17 06/07/17 18:59 06:59 18:59 Intake Total 660 480 Output Total 1300 1300 200 Balance -640 -1300 280 Weight 81.7 kg Intake: Oral 660 480 Output: Urine 1300 1300 200 Other: Voiding Method Toilet Urinal Toilet Urinal Urinal # Voids 1 1 # Bowel Movements 1 1 - Exam GENERAL EXAM: Alert, active, comfortable in no apparent distress. HEAD: Normocephalic. EYES: Normal reaction of pupils, equal size. NOSE: Clear with pink turbinates. THROAT: No erythema or exudates. NECK: No masses, no JVD. CHEST: No chest wall deformity. LUNGS: Equal air entry with wheezing and laterally. Diminished breath sounds, few crackles at lung bases bilaterally CVS: Irregular S1 and S2 normal with an audible murmur, irregular rhythm consistent with atrial fibrillation yet the rate is under better control for now ABDOMEN: No hepatosplenomegaly, normal bowel sounds, no guarding or rigidity. SPINE: No scoliosis or deformity SKIN: No rashes CENTRAL NERVOUS SYSTEM: No focal deficits, tone is normal in all 4 extremities. EXTREMITIES: There is trace peripheral edema. No clubbing, no cyanosis. Peripheral pulses are intact. - Labs CBC & Chem 7: 06/07/17 11:02 06/07/17 06:00 Labs: Abnormal Lab Results - Last 24 Hours (Table) 06/07/17 06/07/17 06/07/17 Range/Units 06:00 06:00 11:02 RBC 4.22 L 4.24 L (4.30-5.90) m/uL Hgb 11.8 L 11.8 L (13.0-17.5) gm/dL Hct 36.5 L 36.8 L (39.0-53.0) % Lymphocytes # 0.5 L (1.0-4.8) k/uL PT (9.0-12.0) sec INR (<1.2) Potassium 3.3 L (3.5-5.1) mmol/L Chloride 94 L (98-107) mmol/L Carbon Dioxide 36 H (22-30) mmol/L BUN 25 H (9-20) mg/dL 06/07/17 Range/Units 11:02 RBC (4.30-5.90) m/uL Hgb (13.0-17.5) gm/dL Hct (39.0-53.0) % Lymphocytes # (1.0-4.8) k/uL PT 12.8 H (9.0-12.0) sec INR 1.4 H (<1.2) Potassium (3.5-5.1) mmol/L Chloride (98-107) mmol/L Carbon Dioxide (22-30) mmol/L BUN (9-20) mg/dL Microbiology - Last 24 Hours (Table) 06/05/17 22:19 Urine Culture - Final Urine,Voided 06/01/17 08:03 Blood Culture - Final Blood No Growth after 144 hours 06/01/17 07:54 Blood Culture - Final Blood No Growth after 144 hours 06/05/17 19:00 Nasal Screen MRSA/MSSA (JOSEPH) - Final Nasal Swab Assessment and Plan Plan: Assessment 1 coronary artery disease with evidence of severe mitral regurgitation, impaired LV function with an ejection fraction of around 25-30% in addition to dilatation of the right ventricle and moderate degree of pulmonary hypertension with a PA pressure estimated to be around 57 and addition to underlying coronary artery disease. The patient has paroxysmal atrial fibrillation and he came in with CHF and during his current hospitalization he was treated for an acute flash pulmonary edema investigation with atrial fibrillation with rapid ventricular response. In summary, the patient's condition has been optimized yet the consensus is that the patient will need mitral valve repair and bypass surgery. We are still optimizing his overall condition. There is a consensus that he will need a surgery and he will need an intra-aortic balloon pump placed preoperatively to optimize his recovery postop. Case was discussed with the surgeon and with the engraver signature. Note that his shortness of breath has improved significantly as the patient got treated CHF and COPD exacerbation. 2 diffuse emphysema with centrilobular changes as evident on the CAT scan of the chest, and the patient was Hospital as for an acute COPD exacerbation and he is currently completing course of Augmentin and a prednisone burst taper 3 bilateral pleural effusion, small, right more than left, likely related to CHF , more optimized 4 atrial fibrillation with rapid ventricular response, recovered and the patient is still having episodes of 80 fibrillation yet at the time of evaluation this morning the patient's rhythm was sinus. 5 CHF with an ejection fraction of 25-30% based on echocardiogram. The patient also the valvular changes with MR and TR and the patient has a right ventricular estimated systolic pressure of around 57 mmHg. The patient echocardiac Nba showed elevation of the right atrial pressure based on the absence of collapsibility of the IVC. No pericardial effusion. 6 BPH 7 Crohn's disease 8 hypertension 9 nephrolithiasis Plan The plan is to proceed with surgery next week probably on Thursday for mitral valve repair and bypass surgery. The patient will need an intra-aortic balloon pump preoperatively. He will also be taken on Xarelto for now in preparation for surgery. Continue oral diuretics. Continue Lasix and Aldactone. COPD is moderately severe with an FEV1 of 58% of predicted. The patient on DuoNeb. The patient is completing a course of Augmentin. In regards to his atrial fibrillation the patient is currently in sinus however is having episodes of A. fib. He is on oral amiodarone 200 mg by mouth twice a day and beta blockers with metoprolol 25 mg by mouth twice a day. He is aware of these above- mentioned discussion and changes.
[2017-06-07] MEDS ORDERED: MD COMMUNICATION TO PHARMACY 1 EACH MISC PO ONE (14:40)
[2017-06-07] MEDS: SODIUM CHLORIDE 0.9% 1,000 ML IV SCH (16:20)
[2017-06-07] MEDS: HEPARIN SOD,PORK IN 0.45% NACL 25,000 UNIT in 0.45% NACL 1 500ML.BAG IV SCH (16:21)
[2017-06-07] MEDS: FUROSEMIDE 40 MG TAB PO SCH (16:26)
[2017-06-07 20:42] LABS: Appearance,Urine Clear (Clear); Bilirubin,Urine Negative (Negative); Blood,Urine Negative (Negative); Color,Urine Yellow; Glucose,Urine (UA) Negative (Negative); Ketones,Urine Negative (Negative); Leukocyte Esterase,Urine Negative (Negative); Nitrite,Urine Negative (Negative); Protein,Urine Negative (Negative); Specific Gravity,Urine 1.011 (1.001-1.035); Urobilinogen,Urine <2.0 mg/dL (<2.0)
[2017-06-08] MEDS: MUPIROCIN 2% OINT 22 GM TUBE NASAL SCH ×2 (01:01→11:23)
[2017-06-08 06:29] LABS: Basophils % (A) 0 %; Eosinophils % (A) 0 %; HCT 35.5 % (39.0-53.0); HGB 11.4 gm/dL (13.0-17.5); Lymphocytes # (A) 0.9 k/uL (1.0-4.8); Lymphocytes % (A) 11 %; MCH 27.8 pg (25.0-35.0); MCHC 32.1 g/dL (31.0-37.0); MCV 86.7 fL (80.0-100.0); Mean Platelet Volume 7.7; Monocytes # (A) 0.5 k/uL (0-1.0); Monocytes % (A) 6 %; Neutrophils # (A) 6.6 k/uL (1.3-7.7); Neutrophils % (A) 80 %; Platelet Count 244 k/uL (150-450); RBC 4.09 m/uL (4.30-5.90); RDW 13.9 % (11.5-15.5); WBC 8.3 k/uL (3.8-10.6)
[2017-06-08] MEDS: PANTOPRAZOLE 40 MG TABLET PO SCH (06:44)
[2017-06-08 06:50] LABS: Calcium 8.8 mg/dL (8.4-10.2)
[2017-06-08] MEDS: IPRATROPIUM-ALBUTEROL 3 ML NEB INHALATION PRN ×2 (08:13→11:47)
--- NOTE | 2017-06-08 08:23 | XR ---
EXAMINATION TYPE: XR chest 2V DATE OF EXAM: 06/08/2017 COMPARISON: Prior chest x-ray 06/04/[address] 06/01/2017 HISTORY: Preop TECHNIQUE: Frontal and lateral views of the chest are obtained. FINDINGS: Prominent lung volumes suggest underlying COPD, the interstitium remains increased. No lamont dent pneumothorax or pleural effusion. Heart remains enlarged. There are overlying cardiac leads. IMPRESSION: Findings are similar to previous exam. Correlate for interstitial lung disease, pulmonar y venous hypertension and interstitial edema. Emphysema.
[2017-06-08] MEDS: AMOXIC-POT CLAV 500-125 MG 1 EACH TAB PO SCH ×2 (09:15→19:51)
[2017-06-08] MEDS: ASPIRIN 81 MG PO SCH (09:15)
[2017-06-08] MEDS: METOPROLOL TARTRATE 25 MG TAB PO SCH ×2 (09:15→19:52)
[2017-06-08] MEDS: LISINOPRIL 10 MG TAB PO SCH (09:15)
[2017-06-08] MEDS: AMIODARONE 200 MG TAB PO SCH ×2 (09:15→19:51)
[2017-06-08] MEDS: FUROSEMIDE 40 MG TAB PO SCH ×2 (09:15→17:17)
[2017-06-08] MEDS: DOXAZOSIN 4 MG TAB PO SCH ×2 (09:16→19:51)
[2017-06-08] MEDS: BALSALAZIDE DISODIUM 750 MG CAPSULE PO SCH ×3 (09:16→19:51)
[2017-06-08] MEDS: SPIRONOLACTONE 25 MG TAB PO SCH (09:17)
[2017-06-08] MEDS: predniSONE 20 MG TAB PO SCH (09:17)
[2017-06-08] MEDS: MULTIVITAMINS, THERA 1 EACH TAB PO SCH (11:29)
[2017-06-08] MEDS: CHOLECALCIFEROL 1,000 UNIT TAB PO SCH (11:29)
[2017-06-08] MEDS: CYANOCOBALAMIN 500 MCG TAB PO SCH (11:30)
--- NOTE | 2017-06-08 13:43 | XR ---
Panorex HISTORY: Preop cardiac surgery Panorex view is submitted. There is lucency about the last tooth on the right within the mandible suggestive of infection. Maxil la shows no teeth. No evident fracture or dislocation. IMPRESSION: Possible periodontal disease as described in the right mandible.
--- NOTE | 2017-06-08 14:09 | CDI ---
Last Revision, January 2017 Documentation Clarification Form Date: 06/08/17 1406 From: Asha Coreas RN, CCDS Admit Date: 06/01/2017 6:24:00 AM Patient Name: Cb Alonso Visit Number: [id number] ATTENTION: The Clinical Documentation Specialists (CDI) and [facility] Coding Staff appreciate your assistance in clarifying documentation. Please respond to the clarification below the line at the bottom and electronically sign. The CDI & [facility] Coding staff will review the response and follow-up if needed. Please note: Queries are made part of the Legal Health Record. If you have any questions, please contact the author of this message via ITS. Dr. Madhav Huertas Renal Disease was documented in the PMH History/Risk Factors: HTN, Renal disease, acute on chronic systolic CHF Patients baseline BUN:CR:GFR:- no previous labs at this facility Clinical Indicators: Current BUN: 23/35/30/29 Cr: 1.2/1.41/1.1//1.08 GFR : 62/51/68/70 Treatment: IVF: 0.9% NS @ 20 cc/hr Lasix 40 mg PO BID In order to capture the severity of condition, please clarify if the condition signifies: It appears that was documented by another provider. Please continue to document in your progress notes and discharge summary in order to capture severity of illness and risk of mortality. Include clinical findings that support your diagnosis. MTDD
--- NOTE | 2017-06-08 14:57 | P.PN ---
Subjective Progress Note Date: 06/08/17 Principal diagnosis: Severe mitral regurgitation and cardiomyopathy with LV dysfunction, moderate pulmonary hypertension, and coronary artery disease This is a very pleasant 71-year-old gentleman who follows with Dr. Mauricio Keith as his primary care physician. He has history of Crohn's disease, nephrolithiasis status post lithotripsy him a BPH, hypertension, tinnitus. He has has a history of previous tobacco dependence and suspected COPD. He has not been seen by a learning and development analyst in the past. He had been having ongoing issues with shortness of breath, yellow productive sputum. He had been treated for bronchitis 2 with antibiotics and steroids. Never quite back to his baseline. He did have a fever of 102.4. He presented to the emergency room at [facility] with increasing shortness of breath, cough, congestion palpitations. He was found to be in atrial fibrillation with a rapid ventricular response and was subsequently transferred here to [facility] yesterday morning. His chest x-ray did reveal evidence of fluid volume overload and congestive heart failure. An echocardiogram revealed severely impaired left ventricular systolic function with ejection fraction 25-30%. There is also noted severe global hypokinesia. He has moderate to severe mitral regurgitation. Moderate to severe tricuspid regurgitation. Moderate pulmonary hypertension with an RVSP of 57.96 mmHg. ProBNP 6190. Creatinine 1.20. He has been initiated on Lasix 20 mg IV push every 12 hours. He is seen today in consultation on the selective care unit. He is currently sitting up in a chair at the bedside. He is awake and alert in no acute distress. He is breathing easier today as compared to yesterday. He is maintaining good O2 saturations in the 90s on room air. He has since converted back to normal sinus rhythm. He is afebrile. No fever chills or night sweats. No productive cough. The cultures reveal no growth to date. He has been initiated on Xarelto. He is also on bronchodilators, IV Solu-Medrol and antibiotics in the form of Augmentin. The patient is seen again today 06/03/2017 in follow-up on the selective care unit. He is currently resting comfortably in bed. He did undergo cardiac catheterization this morning. Report is pending. Further interventions are being discussed. He denies any shortness of breath currently. No chest pain or palpitations. He is currently maintaining good O2 saturations in the 90s on room air. He is hemodynamically stable. Blood and sputum cultures reveal no growth to date. White count 9.7. Hemoglobin 10.9. Creatinine 1.41. He is currently on bronchodilators, IV Solu-Medrol, Augmentin. Xarelto currently on hold. On 06/04/2017 patient seen in follow-up on selective care unit. Patient underwent cardiac catheterization on 06/03/2017 was found to have moderate disease in the distal left main and the mid RCA and moderate disease in the proximal left circumflex. In the plan is to treat him medically for his coronary artery disease. Yesterday in the afternoon patient back into atrial fibrillation with RVR, started on Cardizem drip, and currently his rate is ranging anywhere from 80-110 BPM. Patient had an episode of acute respiratory distress this morning, she was tachypneic, coughing, and was given 40 mg of IV Lasix for what appeared to be acute pulmonary edema. Chest x-ray was obtained, and showed pulmonary venous hypertension, and interstitial edema. Patient was placed on 100% nonrebreather, once releasing his FiO2 was weaned back down, and currently the patient is on 3 L per nasal cannula with O2 sat 94%. She remains on oral prednisone, Xarelto for anticoagulation. Responded well to IV diuretics. On 06/05/2088 seeing Cb for a follow-up. Obviously the patient is less short of breath compared to yesterday. Note that the patient went into an acute pulmonary edema yesterday and he became acutely short of breath. He responded nicely to diuretics. He is going to have a RUT to evaluate the mitral valve regurgitation today and its severity. The patient is still in atrial fibrillation. Rate is under better control and the patient is currently off the Cardizem drip. He has having no chest pain. No nausea. No vomiting. No cough or sputum production. Cardiology is on the case and the patient is currently anticoagulated with Xarelto. He is also on metoprolol 25 mg by mouth twice a day and amiodarone 400 mg by mouth twice a day and the patient is also on a combination of Lasix and Aldactone. The patient is also completing a course of Augmentin and a prednisone burst taper regarding acute bronchitis/ COPD exacerbation. For now the plan is to proceed with cardiac evaluation with RUT. On 06/06/2017, I'm seeing this patient for a follow-up. Overall poor status is stable and the patient is less short of breath compared to yesterday. He is still being investigated regarding his valvular disease knowing that he has severe mitral regurgitation and he may be a potentially candidate for mitral valve repair. History nature fibrillation at the rate is controlled. He is on anticoagulation for now and he is on Xarelto. No chest pain. No angina. No nausea. No vomiting. No swelling in lower extremities. On and off is still coughing and he is being treated with a prednisone burst taper regarding his COPD exacerbation is also on a course of Augmentin. The patient was seen by Dr. Reinaldo Davila. He is on Lasix 40 mg IV every 12 hours. He is also on Aldactone 25 minutes by mouth daily. No other significant events over the past 24 hours. He is also on amiodarone 400 mg by mouth twice a day in addition to his beta billy 25 mg of metoprolol twice a day. On 06/07/2017, the patient is feeling much better. He is off oxygen. His emanating. A bedside spirometry was done and his FEV1 is normal to 58% of predicted consistent with COPD yet this can be and also a underestimation of the lung capacity knowing that the patient was in CHF and had lateral pleural effusions. In any rate his cardiac rhythm is back to sinus. He is having paroxysmal atrial fibrillation and this morning he was noted to be in sinus rhythm. No chest pain. No major swelling lower extremities. No altered mentation. He is completing a prednisone burst taper regarding his COPD exacerbation. I elected discussion about this case with cardiology and cardiothoracic surgery. The patient will need surgery knowing that he has severe mitral regurgitation. The images were reviewed by the surgeon. The consensus is that the patient will need an intra-aortic balloon pump placed to optimize his postoperative recovery. If surgery is being contemplated, this will be done probably on Thursday with insertion of intra-aortic balloon pump. The patient otherwise is doing well. He is on oral Lasix. Is on Zestril. Is on Lopressor. He is on a prednisone burst taper. No fever or chills. No other complaints otherwise for now. Patient was reevaluated today on 06/08/2017, patient is feeling great, asymptomatic, off the oxygen, looking forward for his planned surgery in the next 2 days. Patient apparently has severe mitral regurgitation, and he would require surgical intervention I believe it was scheduled for next one day. CBC was noted to be normal, basic metabolic profile is normal, bicarb is 36. Patient denies any cough wheezing or shortness of breath at present. Objective - Vital Signs Vital signs: Vital Signs Temp 96.9 F L 06/08/17 11:30 Pulse 90 06/08/17 12:04 Resp 16 06/08/17 11:30 BP 110/60 06/08/17 11:30 Pulse Ox 96 06/08/17 11:30 Intake & Output 06/07/17 06/08/17 06/08/17 18:59 06:59 18:59 Intake Total 990 4953.090 1653 Output Total 983 890 4687 Balance 640 369.900 720 Weight 82.7 kg Intake: IV 30 50 0.9 30 50 Intake, IV Titration 309.900 265 Amount Heparin Sod,Pork in 0.45% 309.900 NaCl 25,000 unit In 0.45 % NaCl 1 500ml.bag @ 12 UNITS/KG/HR 19.6 mls/hr IV .Q24H [facility] Rx#: [id number] Heparin Sodium,Porcine 5, 125 000 unit In Sodium Chloride 0.9% 500 ml @ As Directed IV ONCE ONE Rx# :[id number] Sodium Chloride 0.9% 1, 140 000 ml @ 20 mls/hr IV . Q24H [facility] Rx#:[id number] Oral [id number] Output: Urine 486 [id number] Other: Voiding Method Toilet Toilet Toilet Urinal Urinal Urinal # Voids 4 1 1 # Bowel Movements 4 - Exam GENERAL EXAM: Alert, active, comfortable in no apparent distress. HEAD: Normocephalic. EYES: Normal reaction of pupils, equal size. NOSE: Clear with pink turbinates. THROAT: No erythema or exudates. NECK: No masses, no JVD. CHEST: No chest wall deformity. LUNGS: Equal air entry, no crackles or rhonchi or wheezes noted on examination today. CVS: Irregular S1 and S2 normal with an audible murmur, irregular rhythm consistent with atrial fibrillation yet the rate is under better control for now ABDOMEN: No hepatosplenomegaly, normal bowel sounds, no guarding or rigidity. SPINE: No scoliosis or deformity SKIN: No rashes CENTRAL NERVOUS SYSTEM: No focal deficits, tone is normal in all 4 extremities. EXTREMITIES: There is trace peripheral edema. No clubbing, no cyanosis. Peripheral pulses are intact. - Labs CBC & Chem 7: 06/08/17 05:54 06/08/17 05:54 Labs: Abnormal Lab Results - Last 24 Hours (Table) 06/07/17 06/08/17 06/08/17 Range/Units 23:59 05:54 05:54 RBC 4.09 L (4.30-5.90) m/uL Hgb 11.4 L (13.0-17.5) gm/dL Hct 35.5 L (39.0-53.0) % Lymphocytes # 0.9 L (1.0-4.8) k/uL APTT 30.5 H (22.0-30.0) sec Chloride 95 L (98-107) mmol/L Carbon Dioxide 36 H (22-30) mmol/L BUN 31 H (9-20) mg/dL 06/08/17 Range/Units 05:54 RBC (4.30-5.90) m/uL Hgb (13.0-17.5) gm/dL Hct (39.0-53.0) % Lymphocytes # (1.0-4.8) k/uL APTT 46.6 H (22.0-30.0) sec Chloride (98-107) mmol/L Carbon Dioxide (22-30) mmol/L BUN (9-20) mg/dL Microbiology - Last 24 Hours (Table) 06/05/17 22:19 Urine Culture - Final Urine,Voided Assessment and Plan Assessment: 1 coronary artery disease with evidence of severe mitral regurgitation, impaired LV function with an ejection fraction of around 25-30% in addition to dilatation of the right ventricle and moderate degree of pulmonary hypertension with a PA pressure estimated to be around 57 and addition to underlying coronary artery disease. The patient has paroxysmal atrial fibrillation and he came in with CHF and during his current hospitalization he was treated for an acute flash pulmonary edema investigation with atrial fibrillation with rapid ventricular response. In summary, the patient's condition has been optimized yet the consensus is that the patient will need mitral valve repair and bypass surgery. We are still optimizing his overall condition. There is a consensus that he will need a surgery and he will need an intra-aortic balloon pump placed preoperatively to optimize his recovery postop. Case was discussed with the surgeon and with the forester aide. Note that his shortness of breath has improved significantly as the patient got treated CHF and COPD exacerbation. 2 diffuse emphysema with centrilobular changes as evident on the CAT scan of the chest, and the patient was Hospital as for an acute COPD exacerbation and he is currently completing course of Augmentin and a prednisone burst taper 3 bilateral pleural effusion, small, right more than left, likely related to CHF , more optimized 4 atrial fibrillation with rapid ventricular response, recovered and the patient is still having episodes of 80 fibrillation yet at the time of evaluation this morning the patient's rhythm was sinus. 5 CHF with an ejection fraction of 25-30% based on echocardiogram. The patient also the valvular changes with MR and TR and the patient has a right ventricular estimated systolic pressure of around 57 mmHg. The patient echocardiac Nba showed elevation of the right atrial pressure based on the absence of collapsibility of the IVC. No pericardial effusion. 6 BPH 7 Crohn's disease 8 hypertension 9 nephrolithiasis Recommendation: I fully agree with the present treatment plan, surgery is scheduled for next Thursday. We'll continue to follow. Continue incentive spirometry in the meantime, and he was instructed to use it more often. Time with Patient: Less than 30
--- NOTE | 2017-06-08 15:01 | P.GSCN ---
History of Present Illness Consult date: 06/08/17 Reason for Consult: Pt presented with an uppper Full denture and lower partial denture. Pt has teeth 20-29. Radiographically, Pt shows widening in the PDL on #29. Intra oral examination, shows no dental caries, no fractures, no pain to pressure, nor any pain to percussion. Pt is clear of dental infection. Pt sees his dentist regularly, and his periodontal tissue looks good and healthy. Thank you for your kind referral. Past Medical History Past Medical History: Hearing Disorder / Deafness, Hypertension, Prostate Disorder, Renal Disease Additional Past Medical History / Comment(s): Crohn's disease, nephrolithiasis, BPH, hypertension, COPD, tinnitus bilateral along with hearing impairment. History of Any Multi-Drug Resistant Organisms: None Reported Past Surgical History: Hernia Repair, Tonsillectomy Additional Past Surgical History / Comment(s): lithotripsy, deviated septum, colonoscopies, umbilical and inguinal hernia repairs (laterality unknown). Past Anesthesia/Blood Transfusion Reactions: No Reported Reaction Past Psychological History: No Psychological Hx Reported Smoking Status: Former smoker Past Alcohol Use History: Rare Past Drug Use History: None Reported - Past Family History Father Family Medical History: Cancer, Congestive Heart Failure (CHF), Coronary Artery Disease (CAD) Additional Family Medical History / Comment(s): Father had prostrate cancer. Father had a CABG in his 70s Mother Family Medical History: CVA/TIA Additional Family Medical History / Comment(s): Mother of a CVA at the age of 53yrs. Medications and Allergies Home Medications Medication Instructions Recorded Confirmed Type Albuterol Sulfate [Proair Hfa] 1 - 2 puff INHALATION RT-Q6H PRN 06/01/17 History Aspirin 81 mg PO DAILY 06/01/17 06/01/17 History Cholecalciferol (Vitamin D3) 2,000 unit PO DAILY 06/01/17 06/01/17 History [Vitamin D3] Codeine Phosphate/Guaifenesin 5 - 10 ml PO Q6H PRN 06/01/17 06/01/17 History [Cheratussin AC Syrup] Cyanocobalamin (Vitamin B-12) 2,000 mcg PO DAILY 06/01/17 06/01/17 History [Vitamin B-12] Doxazosin Mesylate [Doxazosin 4 mg PO BID 06/01/17 06/01/17 History Mesylate] Mesalamine [Pentasa] 1,000 mg PO QID 06/01/17 06/01/17 History Multivitamin [Men's Multi-Vitamin] 1 tab PO DAILY 06/01/17 06/01/17 History Soolantra 1 applic TOPICAL DAILY 06/01/17 06/01/17 History Allergies Allergy/AdvReac Type Severity Reaction Status Date / Time No Known Allergies Allergy Verified 06/01/17 06:51 Surgical - Exam Vital Signs Temp Pulse Resp BP Pulse Ox 97.9 F 99 20 129/85 95 06/01/17 06:10 06/01/17 06:10 06/01/17 06:10 06/01/17 06:10 06/01/17 06:10 Results - Labs 06/08/17 05:54 06/08/17 05:54 Abnormal Lab Results - Last 24 Hours (Table) 06/07/17 06/08/17 06/08/17 Range/Units 23:59 05:54 05:54 RBC 4.09 L (4.30-5.90) m/uL Hgb 11.4 L (13.0-17.5) gm/dL Hct 35.5 L (39.0-53.0) % Lymphocytes # 0.9 L (1.0-4.8) k/uL APTT 30.5 H (22.0-30.0) sec Chloride 95 L (98-107) mmol/L Carbon Dioxide 36 H (22-30) mmol/L BUN 31 H (9-20) mg/dL 06/08/17 Range/Units 05:54 RBC (4.30-5.90) m/uL Hgb (13.0-17.5) gm/dL Hct (39.0-53.0) % Lymphocytes # (1.0-4.8) k/uL APTT 46.6 H (22.0-30.0) sec Chloride (98-107) mmol/L Carbon Dioxide (22-30) mmol/L BUN (9-20) mg/dL Microbiology - Last 24 Hours (Table) 06/05/17 22:19 Urine Culture - Final Urine,Voided Diabetes panel 06/08/17 Range/Units 05:54 Sodium 139 (137-145) mmol/L Potassium 4.0 (3.5-5.1) mmol/L Chloride 95 L (98-107) mmol/L Carbon Dioxide 36 H (22-30) mmol/L BUN 31 H (9-20) mg/dL Creatinine 0.99 (0.66-1.25) mg/dL Glucose 91 (74-99) mg/dL Calcium 8.8 (8.4-10.2) mg/dL Calcium panel 06/08/17 Range/Units 05:54 Calcium 8.8 (8.4-10.2) mg/dL Pituitary panel 06/08/17 Range/Units 05:54 Sodium 139 (137-145) mmol/L Potassium 4.0 (3.5-5.1) mmol/L Chloride 95 L (98-107) mmol/L Carbon Dioxide 36 H (22-30) mmol/L BUN 31 H (9-20) mg/dL Creatinine 0.99 (0.66-1.25) mg/dL Glucose 91 (74-99) mg/dL Calcium 8.8 (8.4-10.2) mg/dL Adrenal panel 06/08/17 Range/Units 05:54 Sodium 139 (137-145) mmol/L Potassium 4.0 (3.5-5.1) mmol/L Chloride 95 L (98-107) mmol/L Carbon Dioxide 36 H (22-30) mmol/L BUN 31 H (9-20) mg/dL Creatinine 0.99 (0.66-1.25) mg/dL Glucose 91 (74-99) mg/dL Calcium 8.8 (8.4-10.2) mg/dL
--- NOTE | 2017-06-08 15:28 | P.PN ---
Subjective Progress Note Date: 06/08/17 This is a pleasant 71-year-old gentleman with no prior documented history of hypertension, no diabetes, no hyperlipidemia, nonsmoker, rare EtOH, history of Crohn's disease and enlarged prostate, who states as an outpatient he 's been dealing with symptoms of shortness of breath, fever, and productive cough of yellow sputum. He has gone to see his primary care physician as an outpatient, and has been on 2 courses of antibiotics along with steroids. In spite of this patient continues to feel short of breath, continues to have a productive cough as well as fever. For this reason he presented to [facility]. White blood cell count on arrival here 4.8, hemoglobin 11.5 , platelet count 153. Sodium 136, potassium 3.7, BUN 12, creatinine 1.0, magnesium 1.5. Troponin 0.03, BNP elevated at 7250. Chest x-ray performed at [facility] did show some congestive heart failure. Patient had an EKG performed [facility] which showed atrial fibrillation with a rapid ventricular response. According to the patient, he has no prior documented history of atrial fibrillation. EKG on arrival here shows normal sinus rhythm, sinus tachycardia with PACs. Blood pressure 128/80, heart rate in the 90s, 95% on room air. Afebrile. No labs were performed here. At the time of my examination this morning, patient has a nonrebreather on, he is satting 95%. Still appears to be quite short of breath. Continues to have productive cough. 06/02/2017 Patient was diuresed through the night on IV Lasix, overall is feeling significantly better today. White blood cell count 5.7, hemoglobin 12.3, platelet count 165. Sodium 135, potassium 4.9, BUN 23, creatinine 1.2. BNP level 6190, TSH 2.5. An echocardiogram with Doppler study was performed which revealed an ejection fraction of 25-30%. Severe global hypokinesia noted. Moderate to severe MR, moderate to severe TR. The results of this were explained to the patient in detail, he was advised to undergo cardiac catheterization to rule out underlying coronary artery disease. The risks and the benefits were explained to the patient and his in detail, this will be performed tomorrow by Dr. Perry. 06/08/2017 Patient did undergo cardiac catheterization which revealed evidence of left main disease with significant mitral regurgitation on RUT. He is scheduled to undergo surgery this week. He was seen and examined this morning, breathing is stable, denies any chest discomfort. Blood pressure 110/60 with a heart rate in the 70s, 96% on room air. Hemoglobin 11.4, platelet count 244. Sodium 139, potassium 4.0, BUN 31, creatinine 0.9. Objective - Vital Signs Vital signs: Vital Signs Temp 96.9 F L 06/08/17 11:30 Pulse 90 06/08/17 12:04 Resp 16 06/08/17 11:30 BP 110/60 06/08/17 11:30 Pulse Ox 96 06/08/17 11:30 Intake & Output 06/07/17 06/08/17 06/08/17 18:59 06:59 18:59 Intake Total 990 6285.013 6494 Output Total 264 742 9743 Balance 640 369.900 720 Weight 82.7 kg Intake: IV 30 50 0.9 30 50 Intake, IV Titration 309.900 265 Amount Heparin Sod,Pork in 0.45% 309.900 NaCl 25,000 unit In 0.45 % NaCl 1 500ml.bag @ 12 UNITS/KG/HR 19.6 mls/hr IV .Q24H [facility] Rx#: [id number] Heparin Sodium,Porcine 5, 125 000 unit In Sodium Chloride 0.9% 500 ml @ As Directed IV ONCE ONE Rx# :[id number] Sodium Chloride 0.9% 1, 140 000 ml @ 20 mls/hr IV . Q24H [facility] Rx#:[id number] Oral [id number] Output: Urine [id number] Other: Voiding Method Toilet Toilet Toilet Urinal Urinal Urinal # Voids 4 1 1 # Bowel Movements 4 - Exam PHYSICAL EXAMINATION: HEENT: Head is atraumatic, normocephalic. Pupils equal, round. Neck is supple. There is no elevated jugular venous pressure. HEART EXAMINATION: Heart S1 and S2 systolic murmur is heard CHEST EXAMINATION: Lungs are clear to auscultation and precussion. No chest wall tenderness is noted on palpation or with deep breathing. ABDOMEN: Soft, nontender. Bowel sounds are heard. No organomegaly noted. EXTREMITIES: 2+ peripheral pulses with no evidence of peripheral edema and no calf tenderness noted. NEUROLOGIC patient is awake, alert and oriented -3. . - Labs CBC & Chem 7: 06/08/17 05:54 06/08/17 05:54 Labs: Abnormal Lab Results - Last 24 Hours (Table) 06/07/17 06/08/17 06/08/17 Range/Units 23:59 05:54 05:54 RBC 4.09 L (4.30-5.90) m/uL Hgb 11.4 L (13.0-17.5) gm/dL Hct 35.5 L (39.0-53.0) % Lymphocytes # 0.9 L (1.0-4.8) k/uL APTT 30.5 H (22.0-30.0) sec Chloride 95 L (98-107) mmol/L Carbon Dioxide 36 H (22-30) mmol/L BUN 31 H (9-20) mg/dL 06/08/17 Range/Units 05:54 RBC (4.30-5.90) m/uL Hgb (13.0-17.5) gm/dL Hct (39.0-53.0) % Lymphocytes # (1.0-4.8) k/uL APTT 46.6 H (22.0-30.0) sec Chloride (98-107) mmol/L Carbon Dioxide (22-30) mmol/L BUN (9-20) mg/dL Assessment and Plan Plan: Assessment and plan #1 symptoms of progressively worsening shortness of breath, with associated productive cough of yellow sputum and fever, likely combination of possible tracheal bronchitis/pneumonia and congestive heart failure. LV function unknown. Chest x-ray [facility] shows congestive heart failure. BNP level in the 7000 range. #2 paroxysmal atrial fibrillation, currently in normal sinus rhythm. #3 Crohn's disease Plan Patient is currently on IV heparin which we will continue. Patient is currently scheduled to undergo coronary artery bypass grafting surgery and mitral valve repair on Thursday. We will continue to follow. DNP note has been reviewed, I agree with a documented findings and plan of care. Patient was seen and examined.
--- NOTE | 2017-06-08 15:35 | P.PN ---
Subjective Progress Note Date: 06/08/17 Principal diagnosis: Coronary artery disease, mitral regurgitation. Acute systolic heart failure with ejection fraction 20-25%. Previous medical history of Crohn's, BPH, previous tobacco dependence with current FEV1 58% of predicted. Recent tracheobronchitis. New-onset atrial fibrillation, currently on amiodarone and Xarelto. Patient is currently sitting up to bedside chair. He is in no acute distress. He denies any shortness of breath or pain at this time. Preoperative teaching discussed and questions answered with the patient to the best of my ability. Objective - Vital Signs Vital signs: Vital Signs Temp 96.9 F L 06/08/17 11:30 Pulse 90 06/08/17 12:04 Resp 16 06/08/17 11:30 BP 110/60 06/08/17 11:30 Pulse Ox 96 06/08/17 11:30 Intake & Output 06/07/17 06/08/17 06/08/17 18:59 06:59 18:59 Intake Total 990 6449.437 9550 Output Total 161 751 2613 Balance 640 369.900 720 Weight 82.7 kg Intake: IV 30 50 0.9 30 50 Intake, IV Titration 309.900 265 Amount Heparin Sod,Pork in 0.45% 309.900 NaCl 25,000 unit In 0.45 % NaCl 1 500ml.bag @ 12 UNITS/KG/HR 19.6 mls/hr IV .Q24H [facility] Rx#: [id number] Heparin Sodium,Porcine 5, 125 000 unit In Sodium Chloride 0.9% 500 ml @ As Directed IV ONCE ONE Rx# :[id number] Sodium Chloride 0.9% 1, 140 000 ml @ 20 mls/hr IV . Q24H [facility] Rx#:[id number] Oral [id number] Output: Urine 747 445 6691 Other: Voiding Method Toilet Toilet Toilet Urinal Urinal Urinal # Voids 4 1 1 # Bowel Movements 4 - Constitutional General appearance: Present: cooperative, no acute distress - Respiratory Details: Lungs sounds essentially clear throughout, diminished to his bilateral bases. Respirations are symmetrical and nonlabored. Oxygen saturation are 94% on room air. He is achieving 3500 mL on his incentive spirometry. - Cardiovascular Details: Regular rhythm and rate. S1 and S2 present, negative for S3, gallop or murmur. Remote telemetry showing normal sinus rhythm heart rate 73. No edema present. Knee-high sequential compression devices in place to his bilateral lower extremities. - Gastrointestinal Gastrointestinal Comment(s): Abdomen is soft, nontender and nondistended. Active bowel sounds to all 4, quadrants. Passing flatus. Tolerating oral intake. - Genitourinary Genitourinary Comment(s): Voiding clear yellow urine. - Integumentary Integumentary Comment(s): Skin is warm and dry. No clubbing or cyanosis present. No rash or abnormal pigmentation. - Neurologic Neurologic: Present: CNII-XII intact - Musculoskeletal Musculoskeletal: Present: gait normal, strength equal bilaterally - Psychiatric Psychiatric: Present: A&O x's 3, appropriate affect, intact judgment & insight - Allied health notes Allied health notes reviewed: nursing (Panorex x-ray results reviewed.) - Labs CBC & Chem 7: 06/08/17 05:54 06/08/17 05:54 Labs: Abnormal Lab Results - Last 24 Hours (Table) 06/07/17 06/08/17 06/08/17 Range/Units 23:59 05:54 05:54 RBC 4.09 L (4.30-5.90) m/uL Hgb 11.4 L (13.0-17.5) gm/dL Hct 35.5 L (39.0-53.0) % Lymphocytes # 0.9 L (1.0-4.8) k/uL APTT 30.5 H (22.0-30.0) sec Chloride 95 L (98-107) mmol/L Carbon Dioxide 36 H (22-30) mmol/L BUN 31 H (9-20) mg/dL 06/08/17 Range/Units 05:54 RBC (4.30-5.90) m/uL Hgb (13.0-17.5) gm/dL Hct (39.0-53.0) % Lymphocytes # (1.0-4.8) k/uL APTT 46.6 H (22.0-30.0) sec Chloride (98-107) mmol/L Carbon Dioxide (22-30) mmol/L BUN (9-20) mg/dL - Imaging and Cardiology Chest x-ray: report reviewed, image reviewed Assessment and Plan (1) Acute systolic heart failure Current Visit: Yes Status: Acute Code(s): I50.21 - ACUTE SYSTOLIC ( CONGESTIVE) HEART FAILURE SNOMED Code(s): 810785648 (2) CAD (coronary artery disease) Current Visit: Yes Status: Acute Code(s): I25.10 - ATHSCL HEART DISEASE OF [place] CORONARY ARTERY W/O ANG PCTRS SNOMED Code(s): 61130916 (3) COPD (chronic obstructive pulmonary disease) with emphysema Current Visit: Yes Status: Acute Code(s): J43.9 - EMPHYSEMA, UNSPECIFIED SNOMED Code(s): 15982222 (4) New onset a-fib Current Visit: Yes Status: Acute Code(s): I48.91 - UNSPECIFIED ATRIAL FIBRILLATION SNOMED Code(s): 10342202 (5) Family history of heart disease Current Visit: Yes Status: Chronic Code(s): Z82.49 - FAMILY HX OF ISCHEM HEART DIS AND OTH DIS OF THE CIRC SYS SNOMED Code(s): 677205027 (6) History of Crohn's disease Current Visit: Yes Status: Chronic Code(s): Z87.19 - PERSONAL HISTORY OF OTHER DISEASES OF THE DIGESTIVE SYSTEM SNOMED Code(s): 842090824474443 (7) Mitral regurgitation Current Visit: Yes Status: Chronic Code(s): I34.0 - NONRHEUMATIC MITRAL ( VALVE) INSUFFICIENCY SNOMED Code(s): 42158221 (8) Tracheobronchitis Current Visit: Yes Status: Chronic Code(s): J40 - BRONCHITIS, NOT SPECIFIED ACUTE OR CHRONIC SNOMED Code(s): 21791589 (9) Tobacco dependence in remission Current Visit: No Status: Resolved Code(s): F17.201 - NICOTINE DEPENDENCE, UNSPECIFIED, IN REMISSION SNOMED Code(s): 229308411 Plan: 1. Continue aspirin, beta billy, DORIE inhibitor, Lasix, Aldactone. 2. Continue amiodarone for A. fib prophylaxis. 3. Encourage incentive spirometry use 10 times every hour. 4. Increase activity, ambulate in hallway. 5. Reinforce preoperative teaching. 6. He was scheduled on 06/10/2017 for mitral valve surgery, CABG, Schuler maze. Will discuss with patient and family. 7. Consult Dr. [place] for preoperative dental clearance. Obtain Panorex x -ray. 8. Continue to hold Xarelto. 9. More recommendations to follow based on patient's clinical course. Time with Patient: Greater than 30
[2017-06-08] MEDS: HEPARIN SOD,PORK IN 0.45% NACL 25,000 UNIT in 0.45% NACL 1 500ML.BAG IV SCH (17:14)
[2017-06-08] MEDS: SODIUM CHLORIDE 0.9% 1,000 ML IV SCH (17:14)
--- NOTE | 2017-06-08 18:19 | P.PN ---
Subjective Progress Note Date: 06/08/17 Patient feeling better today, reports that been ambulatory reports she was seen by consultants and that they're planning his cardiac surgery for Thursday. Patient otherwise has no complaints Objective - Vital Signs Vital signs: Vital Signs Temp 96.9 F L 06/08/17 11:30 Pulse 90 06/08/17 12:04 Resp 16 06/08/17 11:30 BP 110/60 06/08/17 11:30 Pulse Ox 96 06/08/17 11:30 Intake & Output 06/07/17 06/08/17 06/08/17 18:59 06:59 18:59 Intake Total 990 1795.514 3142 Output Total 282 122 9861 Balance 640 369.900 720 Weight 82.7 kg Intake: IV 30 50 0.9 30 50 Intake, IV Titration 309.900 265 Amount Heparin Sod,Pork in 0.45% 309.900 NaCl 25,000 unit In 0.45 % NaCl 1 500ml.bag @ 12 UNITS/KG/HR 19.6 mls/hr IV .Q24H [facility] Rx#: [id number] Heparin Sodium,Porcine 5, 125 000 unit In Sodium Chloride 0.9% 500 ml @ As Directed IV ONCE ONE Rx# :[id number] Sodium Chloride 0.9% 1, 140 000 ml @ 20 mls/hr IV . Q24H [facility]PLAC[facility] Rx#:[id number] Oral [id number] Output: Urine [id number] [id number] [id number] Other: Voiding Method Toilet Toilet Toilet Urinal Urinal Urinal # Voids 4 1 1 # Bowel Movements 4 - Exam Constitutional: No acute distress, conversant, pleasant Eyes: Anicteric sclerae, moist conjunctiva, no lid-lag, PERRLA ENMT: NC/AT,Oropharynx clear, no erythema, exudates Neck:Supple, FROM, no masses, or JVD, No carotid bruits; No thyromegaly Lungs: Clear to auscultation, Clear to percussion, Normal respiratory effort, no accessory muscle use Cardiovascular: Heart regular in rate and rhythm, No murmurs, gallops, +1 bilateral pedal pitting edema Abdominal: Soft Nontender, nom distended, no guarding, no rebound or rigidity, Normoactive bowel sounds No hepatomegaly, No splenomegaly, No palpable mass No abdominal wall hernia noted Skin: Normal temperature, tone, texture, turgor, No induration No subcutaneous nodules, No rash, lesions, No ulcers Extremities:No digital cyanosis No clubbing, Pedal pulses intact and symmetrical Radial pulses intact and symmetrical Normal gait and station, No calf tenderness Psychiatric: Alert and oriented to person, place and time, Appropriate affect Intact judgement Neuro: Muscles Strength 5/5 in all 4 extremities, Sensation to light touch grossly present throughout, Cranial nerves II-XII grossly intact. No focal sensory deficits - Labs CBC & Chem 7: 06/08/17 05:54 06/08/17 05:54 Labs: Abnormal Lab Results - Last 24 Hours (Table) 06/07/17 06/08/17 06/08/17 Range/Units 23:59 05:54 05:54 RBC 4.09 L (4.30-5.90) m/uL Hgb 11.4 L (13.0-17.5) gm/dL Hct 35.5 L (39.0-53.0) % Lymphocytes # 0.9 L (1.0-4.8) k/uL APTT 30.5 H (22.0-30.0) sec Chloride 95 L (98-107) mmol/L Carbon Dioxide 36 H (22-30) mmol/L BUN 31 H (9-20) mg/dL 06/08/17 Range/Units 05:54 RBC (4.30-5.90) m/uL Hgb (13.0-17.5) gm/dL Hct (39.0-53.0) % Lymphocytes # (1.0-4.8) k/uL APTT 46.6 H (22.0-30.0) sec Chloride (98-107) mmol/L Carbon Dioxide (22-30) mmol/L BUN (9-20) mg/dL Microbiology - Last 24 Hours (Table) 06/05/17 22:19 Urine Culture - Final Urine,Voided Assessment and Plan (1) Atrial fibrillation with rapid ventricular response Current Visit: Yes Status: Resolved Code(s): I48.91 - UNSPECIFIED ATRIAL FIBRILLATION SNOMED Code(s): 234332728281145 (2) Systolic CHF, acute Narrative/Plan: * Severe cardiomyopathy EF of 25-30% * Continue with diuresis with Lasix, continue with beta billy therapy, low- dose DORIE inhibitor and Aldactone Current Visit: Yes Status: Acute Code(s): I50.21 - ACUTE SYSTOLIC ( CONGESTIVE) HEART FAILURE SNOMED Code(s): 094497407 (3) COPD (chronic obstructive pulmonary disease) with emphysema Narrative/Plan: * Patient doing well off oxygen * Receiving ongoing treatment for his prior COPD exacerbation Current Visit: Yes Status: Acute Code(s): J43.9 - EMPHYSEMA, UNSPECIFIED SNOMED Code(s): 02687897 (4) CAD (coronary artery disease) Narrative/Plan: * Patient was noted coronary artery disease as seen on heart catheterization with moderate disease left distal mid rca, proximal left circumflex artery * Patient scheduled to have CABG on Thursday * Continue medical management Current Visit: Yes Status: Acute Code(s): I25.10 - ATHSCL HEART DISEASE OF [place] CORONARY ARTERY W/O ANG PCTRS SNOMED Code(s): 14079225 (5) Valvular heart disease Narrative/Plan: * Patient with severe mitral regurgitation scheduled for surgery on Thursday Current Visit: Yes Status: Acute Code(s): I38 - ENDOCARDITIS, VALVE UNSPECIFIED SNOMED Code(s): 647404
[2017-06-09 06:04] LABS: Basophils % (A) 0 %; Eosinophils % (A) 0 %; HCT 36.6 % (39.0-53.0); HGB 11.9 gm/dL (13.0-17.5); Hypochromasia Slight; Lymphocytes # (A) 0.9 k/uL (1.0-4.8); Lymphocytes % (A) 10 %; MCH 28.1 pg (25.0-35.0); MCHC 32.4 g/dL (31.0-37.0); MCV 86.7 fL (80.0-100.0); Mean Platelet Volume 7.8; Monocytes # (A) 0.5 k/uL (0-1.0); Monocytes % (A) 5 %; Neutrophils # (A) 7.9 k/uL (1.3-7.7); Neutrophils % (A) 84 %; Platelet Count 255 k/uL (150-450); RBC 4.22 m/uL (4.30-5.90); RDW 13.8 % (11.5-15.5); WBC 9.4 k/uL (3.8-10.6)
[2017-06-09] MEDS: PANTOPRAZOLE 40 MG TABLET PO SCH (06:23)
[2017-06-09 07:23] LABS: Anion Gap 10 mmol/L; Blood Urea Nitrogen 28 mg/dL (9-20); Calcium 8.8 mg/dL (8.4-10.2); Carbon Dioxide 33 mmol/L (22-30); Chloride 97 mmol/L (98-107); Glucose 130 mg/dL (74-99); Potassium 3.6 mmol/L (3.5-5.1); Sodium 140 mmol/L (137-145)
[2017-06-09] MEDS: IPRATROPIUM-ALBUTEROL 3 ML NEB INHALATION PRN ×2 (08:12→11:32)
[2017-06-09] MEDS: METOPROLOL TARTRATE 25 MG TAB PO SCH ×2 (09:35→21:07)
[2017-06-09] MEDS: MULTIVITAMINS, THERA 1 EACH TAB PO SCH (09:35)
[2017-06-09] MEDS: DOXAZOSIN 4 MG TAB PO SCH ×2 (09:35→21:06)
[2017-06-09] MEDS: LISINOPRIL 10 MG TAB PO SCH (09:35)
[2017-06-09] MEDS: FUROSEMIDE 40 MG TAB PO SCH (09:35)
[2017-06-09] MEDS: predniSONE 20 MG TAB PO SCH (09:35)
[2017-06-09] MEDS: AMOXIC-POT CLAV 500-125 MG 1 EACH TAB PO SCH ×2 (09:36→21:07)
[2017-06-09] MEDS: BALSALAZIDE DISODIUM 750 MG CAPSULE PO SCH ×3 (09:36→21:07)
[2017-06-09] MEDS: AMIODARONE 200 MG TAB PO SCH ×2 (09:36→21:06)
--- NOTE | 2017-06-09 12:11 | P.PN ---
Subjective Progress Note Date: 06/09/17 Principal diagnosis: Coronary artery disease, mitral regurgitation. Acute systolic heart failure with ejection fraction 20-25%. Previous medical history of Crohn's, BPH, previous tobacco dependence with current FEV1 58% of predicted. Recent tracheobronchitis. New-onset atrial fibrillation, currently on amiodarone and Xarelto. Patient's currently sitting up in the chair in no acute distress. Denies any chest pain or discomfort, denies shortness of breath. States he feels ready for surgery and has no questions at this time. Objective - Vital Signs Vital signs: Vital Signs Temp 97.1 F L 06/09/17 04:00 Pulse 84 06/09/17 11:42 Resp 17 06/09/17 08:00 BP 116/78 06/09/17 04:00 Pulse Ox 95 06/09/17 08:14 Intake & Output 06/08/17 06/09/17 06/09/17 18:59 06:59 18:59 Intake Total 2205 340.68 354 Output Total 1125 600 600 Balance 1080 -259.32 -246 Weight 82.8 kg 82.8 kg Intake: IV 80 0.9 80 Intake, IV Titration 265 260.68 Amount Heparin Sod,Pork in 0.45% 260.68 NaCl 25,000 unit In 0.45 % NaCl 1 500ml.bag @ 12 UNITS/KG/HR 19.6 mls/hr IV .Q24H [facility] Rx#: [id number] Heparin Sodium,Porcine 5, 125 000 unit In Sodium Chloride 0.9% 500 ml @ As Directed IV ONCE ONE Rx# :[id number] Sodium Chloride 0.9% 1, 140 000 ml @ 20 mls/hr IV . Q24H [facility] Rx#:[id number] Oral 1940 354 Output: Urine 1125 600 600 Other: Voiding Method Toilet Toilet Toilet Urinal Urinal Urinal # Voids 1 1 - Constitutional General appearance: Present: cooperative, no acute distress - Respiratory Details: Lungs sounds present bilaterally. Respirations even, nonlabored. Currently on room air with oxygen saturation 95%. Able to achieve 3000 mL on his incentive spirometry. - Cardiovascular Details: S1, S2 present. Regular rate and rhythm, sinus rhythm on telemetry. Palpable peripheral pulses bilaterally. No edema present. No calf pain or tenderness noted. - Gastrointestinal Gastrointestinal Comment(s): Abdomen soft, nontender, nondistended. Active bowel sounds 4 quadrants. Tolerating diet. - Genitourinary Genitourinary Comment(s): Continues to void clear, yellow urine. - Integumentary Integumentary Comment(s): Skin is warm and dry with evidence of good perfusion. - Neurologic Neurologic: Present: CNII-XII intact - Musculoskeletal Musculoskeletal: Present: gait normal, strength equal bilaterally - Psychiatric Psychiatric: Present: A&O x's 3, appropriate affect, intact judgment & insight - Allied health notes Allied health notes reviewed: nursing - Labs CBC & Chem 7: 06/09/17 05:47 06/09/17 05:47 Labs: Abnormal Lab Results - Last 24 Hours (Table) 06/09/17 06/09/17 06/09/17 Range/Units 05:47 05:47 05:47 RBC 4.22 L (4.30-5.90) m/uL Hgb 11.9 L (13.0-17.5) gm/dL Hct 36.6 L (39.0-53.0) % Neutrophils # 7.9 H (1.3-7.7) k/uL Lymphocytes # 0.9 L (1.0-4.8) k/uL APTT 62.5 H (22.0-30.0) sec Chloride 97 L (98-107) mmol/L Carbon Dioxide 33 H (22-30) mmol/L BUN 28 H (9-20) mg/dL Glucose 130 H (74-99) mg/dL Crossmatch 06/09/17 Range/Units 09:03 RBC (4.30-5.90) m/uL Hgb (13.0-17.5) gm/dL Hct (39.0-53.0) % Neutrophils # (1.3-7.7) k/uL Lymphocytes # (1.0-4.8) k/uL APTT (22.0-30.0) sec Chloride (98-107) mmol/L Carbon Dioxide (22-30) mmol/L BUN (9-20) mg/dL Glucose (74-99) mg/dL Crossmatch See Detail - Imaging and Cardiology Chest x-ray: report reviewed, image reviewed Assessment and Plan (1) Mitral regurgitation Current Visit: Yes Status: Chronic Code(s): I34.0 - NONRHEUMATIC MITRAL ( VALVE) INSUFFICIENCY SNOMED Code(s): 14018872 (2) History of Crohn's disease Current Visit: Yes Status: Chronic Code(s): Z87.19 - PERSONAL HISTORY OF OTHER DISEASES OF THE DIGESTIVE SYSTEM SNOMED Code(s): 216055771564936 (3) Tobacco dependence in remission Current Visit: No Status: Resolved Code(s): F17.201 - NICOTINE DEPENDENCE, UNSPECIFIED, IN REMISSION SNOMED Code(s): 653271653 (4) Acute systolic heart failure Current Visit: Yes Status: Acute Code(s): I50.21 - ACUTE SYSTOLIC ( CONGESTIVE) HEART FAILURE SNOMED Code(s): 964201616 (5) Family history of heart disease Current Visit: Yes Status: Chronic Code(s): Z82.49 - FAMILY HX OF ISCHEM HEART DIS AND OTH DIS OF THE CIRC SYS SNOMED Code(s): 911741269 (6) Tracheobronchitis Current Visit: Yes Status: Chronic Code(s): J40 - BRONCHITIS, NOT SPECIFIED ACUTE OR CHRONIC SNOMED Code(s): 71448189 (7) New onset a-fib Current Visit: Yes Status: Acute Code(s): I48.91 - UNSPECIFIED ATRIAL FIBRILLATION SNOMED Code(s): 27996520 Plan: 1. Continue aspirin, beta billy, DORIE inhibitor, Lasix, Aldactone, heparin drip. Discontinue heparin drip lead python developer to the OR tomorrow morning. 2. Continue amiodarone for A. fib prophylaxis. Continue to hold Xarelto for surgery tomorrow. 3. Encourage incentive spirometry use 10 times every hour. 4. Increase activity, ambulate in hallway. 5. Reinforce preoperative teaching. 6. Patient did receive dental clearance. 7. Plan is for OR tomorrow, mitral valve repair, possible replacement, coronary artery bypass grafting, modified Schuler maze procedure, exclusion of the left atrial appendage with Dr. Davila. 8. More recommendations to follow. Time with Patient: Greater than 30
--- NOTE | 2017-06-09 12:14 | PN ---
PROGRESS NOTE Mr. Alonso is a 71-year-old male who presented with symptoms of progressive dyspnea, upper respiratory infection, had paroxysmal atrial fibrillation, was found to have significant coronary artery disease as well as severely impaired left ventricular systolic function with moderate to severe mitral regurgitation. He is back in sinus mechanism. He is feeling much better and according to him, his breathing is better than it was 6 months ago. He is ambulating without difficulty. Denying any dizziness or palpitation. Denies any nausea. He continues to be at this time on aspirin once a day, Amiodarone 200 mg twice a day, Lasix 40 mg twice a day, lisinopril 10 mg daily, Lipitor and metoprolol tartrate 25 mg twice a day in addition to spironolactone 25 mg daily. PHYSICAL EXAMINATION: Blood pressure 116/70 with a heart in the 70s. LUNGS: No wheezes. HEART: Regular rate and rhythm, S1, S2. No S3 with a holosystolic murmur in the apex radiating to the axilla. No diastolic murmur. No rub. ABDOMEN: Soft, nontender. EXTREMITIES: No edema. LAB DATA: BUN and creatinine 28 and 0.94, potassium 3.6. IMPRESSION: 1. Severe coronary artery disease as well as severe cardiomyopathy. 2. Significant mitral regurgitation. 3. Paroxysmal atrial fibrillation. RECOMMENDATION: Patient will proceed with surgical revascularization tomorrow with repair of his mitral valve and depending on his progress, further recommendation will be made. MMODL / IJN: [id number] /
[2017-06-09] MEDS: ASPIRIN 81 MG PO SCH (12:28)
[2017-06-09] MEDS: CYANOCOBALAMIN 500 MCG TAB PO SCH (12:28)
[2017-06-09] MEDS: CHOLECALCIFEROL 1,000 UNIT TAB PO SCH (12:29)
--- NOTE | 2017-06-09 12:30 | P.PN ---
Subjective Progress Note Date: 06/09/17 Principal diagnosis: Severe mitral regurgitation and cardiomyopathy with LV dysfunction, moderate pulmonary hypertension, and coronary artery disease This is a very pleasant 71-year-old gentleman who follows with Dr. Mauricio Keith as his primary care physician. He has history of Crohn's disease, nephrolithiasis status post lithotripsy him a BPH, hypertension, tinnitus. He has has a history of previous tobacco dependence and suspected COPD. He has not been seen by a chemical operator in the past. He had been having ongoing issues with shortness of breath, yellow productive sputum. He had been treated for bronchitis 2 with antibiotics and steroids. Never quite back to his baseline. He did have a fever of 102.4. He presented to the emergency room at [facility] with increasing shortness of breath, cough, congestion palpitations. He was found to be in atrial fibrillation with a rapid ventricular response and was subsequently transferred here to [facility] yesterday morning. His chest x-ray did reveal evidence of fluid volume overload and congestive heart failure. An echocardiogram revealed severely impaired left ventricular systolic function with ejection fraction 25-30%. There is also noted severe global hypokinesia. He has moderate to severe mitral regurgitation. Moderate to severe tricuspid regurgitation. Moderate pulmonary hypertension with an RVSP of 57.96 mmHg. ProBNP 6190. Creatinine 1.20. He has been initiated on Lasix 20 mg IV push every 12 hours. He is seen today in consultation on the selective care unit. He is currently sitting up in a chair at the bedside. He is awake and alert in no acute distress. He is breathing easier today as compared to yesterday. He is maintaining good O2 saturations in the 90s on room air. He has since converted back to normal sinus rhythm. He is afebrile. No fever chills or night sweats. No productive cough. The cultures reveal no growth to date. He has been initiated on Xarelto. He is also on bronchodilators, IV Solu-Medrol and antibiotics in the form of Augmentin. The patient is seen again today 06/03/2017 in follow-up on the selective care unit. He is currently resting comfortably in bed. He did undergo cardiac catheterization this morning. Report is pending. Further interventions are being discussed. He denies any shortness of breath currently. No chest pain or palpitations. He is currently maintaining good O2 saturations in the 90s on room air. He is hemodynamically stable. Blood and sputum cultures reveal no growth to date. White count 9.7. Hemoglobin 10.9. Creatinine 1.41. He is currently on bronchodilators, IV Solu-Medrol, Augmentin. Xarelto currently on hold. On 06/04/2017 patient seen in follow-up on selective care unit. Patient underwent cardiac catheterization on 06/03/2017 was found to have moderate disease in the distal left main and the mid RCA and moderate disease in the proximal left circumflex. In the plan is to treat him medically for his coronary artery disease. Yesterday in the afternoon patient back into atrial fibrillation with RVR, started on Cardizem drip, and currently his rate is ranging anywhere from 80-110 BPM. Patient had an episode of acute respiratory distress this morning, she was tachypneic, coughing, and was given 40 mg of IV Lasix for what appeared to be acute pulmonary edema. Chest x-ray was obtained, and showed pulmonary venous hypertension, and interstitial edema. Patient was placed on 100% nonrebreather, once releasing his FiO2 was weaned back down, and currently the patient is on 3 L per nasal cannula with O2 sat 94%. She remains on oral prednisone, Xarelto for anticoagulation. Responded well to IV diuretics. On 06/05/2088 seeing Cb for a follow-up. Obviously the patient is less short of breath compared to yesterday. Note that the patient went into an acute pulmonary edema yesterday and he became acutely short of breath. He responded nicely to diuretics. He is going to have a RUT to evaluate the mitral valve regurgitation today and its severity. The patient is still in atrial fibrillation. Rate is under better control and the patient is currently off the Cardizem drip. He has having no chest pain. No nausea. No vomiting. No cough or sputum production. Cardiology is on the case and the patient is currently anticoagulated with Xarelto. He is also on metoprolol 25 mg by mouth twice a day and amiodarone 400 mg by mouth twice a day and the patient is also on a combination of Lasix and Aldactone. The patient is also completing a course of Augmentin and a prednisone burst taper regarding acute bronchitis/ COPD exacerbation. For now the plan is to proceed with cardiac evaluation with RUT. On 06/06/2017, I'm seeing this patient for a follow-up. Overall poor status is stable and the patient is less short of breath compared to yesterday. He is still being investigated regarding his valvular disease knowing that he has severe mitral regurgitation and he may be a potentially candidate for mitral valve repair. History nature fibrillation at the rate is controlled. He is on anticoagulation for now and he is on Xarelto. No chest pain. No angina. No nausea. No vomiting. No swelling in lower extremities. On and off is still coughing and he is being treated with a prednisone burst taper regarding his COPD exacerbation is also on a course of Augmentin. The patient was seen by Dr. Reinaldo Davila. He is on Lasix 40 mg IV every 12 hours. He is also on Aldactone 25 minutes by mouth daily. No other significant events over the past 24 hours. He is also on amiodarone 400 mg by mouth twice a day in addition to his beta billy 25 mg of metoprolol twice a day. On 06/07/2017, the patient is feeling much better. He is off oxygen. His emanating. A bedside spirometry was done and his FEV1 is normal to 58% of predicted consistent with COPD yet this can be and also a underestimation of the lung capacity knowing that the patient was in CHF and had lateral pleural effusions. In any rate his cardiac rhythm is back to sinus. He is having paroxysmal atrial fibrillation and this morning he was noted to be in sinus rhythm. No chest pain. No major swelling lower extremities. No altered mentation. He is completing a prednisone burst taper regarding his COPD exacerbation. I elected discussion about this case with cardiology and cardiothoracic surgery. The patient will need surgery knowing that he has severe mitral regurgitation. The images were reviewed by the surgeon. The consensus is that the patient will need an intra-aortic balloon pump placed to optimize his postoperative recovery. If surgery is being contemplated, this will be done probably on Thursday with insertion of intra-aortic balloon pump. The patient otherwise is doing well. He is on oral Lasix. Is on Zestril. Is on Lopressor. He is on a prednisone burst taper. No fever or chills. No other complaints otherwise for now. Patient was reevaluated today on 06/08/2017, patient is feeling great, asymptomatic, off the oxygen, looking forward for his planned surgery in the next 2 days. Patient apparently has severe mitral regurgitation, and he would require surgical intervention I believe it was scheduled for next one day. CBC was noted to be normal, basic metabolic profile is normal, bicarb is 36. Patient denies any cough wheezing or shortness of breath at present. The patient is seen again today 06/09/2017 in follow-up on the selective care unit. He is currently sitting up in a chair at the bedside. He is feeling quite well today. He denies any worsening shortness of breath, cough or congestion. His been maintaining good O2 saturations in the mid 90s on room air. He's been afebrile. Hemodynamically stable. No chest pain or palpitations. White count 9.4. Hemoglobin 11.9. Creatinine 0.94. Objective - Vital Signs Vital signs: Vital Signs Temp 97.1 F L 06/09/17 04:00 Pulse 84 06/09/17 11:42 Resp 17 06/09/17 08:00 BP 116/78 06/09/17 04:00 Pulse Ox 95 06/09/17 08:14 Intake & Output 06/08/17 06/09/17 06/09/17 18:59 06:59 18:59 Intake Total 2205 340.68 354 Output Total 1125 600 600 Balance 1080 -259.32 -246 Weight 82.8 kg 82.8 kg Intake: IV 80 0.9 80 Intake, IV Titration 265 260.68 Amount Heparin Sod,Pork in 0.45% 260.68 NaCl 25,000 unit In 0.45 % NaCl 1 500ml.bag @ 12 UNITS/KG/HR 19.6 mls/hr IV .Q24H [facility] Rx#: [id number] Heparin Sodium,Porcine 5, 125 000 unit In Sodium Chloride 0.9% 500 ml @ As Directed IV ONCE ONE Rx# :[id number] Sodium Chloride 0.9% 1, 140 000 ml @ 20 mls/hr IV . Q24H [facility] Rx#:[id number] Oral 1940 354 Output: Urine 1125 600 600 Other: Voiding Method Toilet Toilet Toilet Urinal Urinal Urinal # Voids 1 1 - Exam GENERAL EXAM: Alert, active, comfortable in no apparent distress. HEAD: Normocephalic. EYES: Normal reaction of pupils, equal size. NOSE: Clear with pink turbinates. THROAT: No erythema or exudates. NECK: No masses, no JVD. CHEST: No chest wall deformity. LUNGS: Equal air entry with crackles in the posterior bases. Diminished. CVS: S1 and S2 normal with an audible murmur, regular rhythm. ABDOMEN: No hepatosplenomegaly, normal bowel sounds, no guarding or rigidity. SPINE: No scoliosis or deformity SKIN: No rashes CENTRAL NERVOUS SYSTEM: No focal deficits, tone is normal in all 4 extremities. EXTREMITIES: There is trace peripheral edema. No clubbing, no cyanosis. Peripheral pulses are intact. - Labs CBC & Chem 7: 06/09/17 05:47 06/09/17 05:47 Labs: Abnormal Lab Results - Last 24 Hours (Table) 06/09/17 06/09/17 06/09/17 Range/Units 05:47 05:47 05:47 RBC 4.22 L (4.30-5.90) m/uL Hgb 11.9 L (13.0-17.5) gm/dL Hct 36.6 L (39.0-53.0) % Neutrophils # 7.9 H (1.3-7.7) k/uL Lymphocytes # 0.9 L (1.0-4.8) k/uL APTT 62.5 H (22.0-30.0) sec Chloride 97 L (98-107) mmol/L Carbon Dioxide 33 H (22-30) mmol/L BUN 28 H (9-20) mg/dL Glucose 130 H (74-99) mg/dL Crossmatch 06/09/17 Range/Units 09:03 RBC (4.30-5.90) m/uL Hgb (13.0-17.5) gm/dL Hct (39.0-53.0) % Neutrophils # (1.3-7.7) k/uL Lymphocytes # (1.0-4.8) k/uL APTT (22.0-30.0) sec Chloride (98-107) mmol/L Carbon Dioxide (22-30) mmol/L BUN (9-20) mg/dL Glucose (74-99) mg/dL Crossmatch See Detail Assessment and Plan Assessment: Impression: #1 Acute exacerbation of systolic congestive heart failure in a patient found to have a severe global hypokinesia and severely impaired left ventricular systolic function with estimated ejection fraction 20-25%. Moderate to severe mitral regurgitation. Plan is for mitral valve surgery and CABG on 06/10/2017. #2 New-onset atrial fibrillation with rapid ventricular response. Currently in a normal sinus rhythm. Anticoagulated with Xarelto. #3 Moderate pulmonary hypertension. #4 Valvular heart disease. #5 Acute exacerbation of her suspected chronic obstructive pulmonary disease complicated by purulent tracheobronchitis. #6 History of previous tobacco dependence. #7 Hypertension. #8 Crohn's disease. #9 History of nephrolithiasis status post lithotripsy. #10 Tinnitus. #11 Hearing disorder. #12 Bilateral tinnitus. Plan: The patient was seen and evaluated by Dr. Harmon. The patient is currently stable from the pulmonary standpoint. The plan is for mitral valve surgery in bypass grafting tomorrow. He continues to work well with the incentive spirometer. Increase his activity as tolerated. We'll continue to follow. I, the cosigning physician, performed a history & physical examination of the patient. Lungs sounds with crackles in the bilateral posterior bases. Diminished. Maintaining good O2 saturations in the 90s on room air. I discussed the assessment and plan of care with my nurse practitioner, Jory Camacho. I attest to the above note as dictated by her.
--- NOTE | 2017-06-09 15:59 | P.PN ---
Subjective Progress Note Date: 06/09/17 Patient feeling better today, saw him while he was ambulatory and down the kennedy reports she was seen by consultants and that they're planning his cardiac surgery for tomorrow morning. Patient otherwise has no complaints Objective - Vital Signs Vital signs: Vital Signs Temp 97.1 F L 06/09/17 04:00 Pulse 52 L 06/09/17 12:00 Resp 16 06/09/17 12:00 BP 108/64 06/09/17 12:00 Pulse Ox 98 06/09/17 12:00 Intake & Output 06/08/17 06/09/17 06/09/17 18:59 06:59 18:59 Intake Total 2205 340.68 834 Output Total 1125 600 600 Balance 1080 -259.32 234 Weight 82.8 kg 82.8 kg Intake: IV 80 0.9 80 Intake, IV Titration 265 260.68 Amount Heparin Sod,Pork in 0.45% 260.68 NaCl 25,000 unit In 0.45 % NaCl 1 500ml.bag @ 12 UNITS/KG/HR 19.6 mls/hr IV .Q24H [facility] Rx#: [id number] Heparin Sodium,Porcine 5, 125 000 unit In Sodium Chloride 0.9% 500 ml @ As Directed IV ONCE ONE Rx# :[id number] Sodium Chloride 0.9% 1, 140 000 ml @ 20 mls/hr IV . Q24H [facility] Rx#:[id number] Oral 1940 834 Output: Urine 1125 600 600 Other: Voiding Method Toilet Toilet Toilet Urinal Urinal Urinal # Voids 1 1 - Exam Constitutional: No acute distress, conversant, pleasant Eyes: Anicteric sclerae, moist conjunctiva, no lid-lag, PERRLA ENMT: NC/AT,Oropharynx clear, no erythema, exudates Neck:Supple, FROM, no masses, or JVD, No carotid bruits; No thyromegaly Lungs: Clear to auscultation, Clear to percussion, Normal respiratory effort, no accessory muscle use Cardiovascular: Heart regular in rate and rhythm, No murmurs, gallops, +1 bilateral pedal pitting edema Abdominal: Soft Nontender, nom distended, no guarding, no rebound or rigidity, Normoactive bowel sounds No hepatomegaly, No splenomegaly, No palpable mass No abdominal wall hernia noted Skin: Normal temperature, tone, texture, turgor, No induration No subcutaneous nodules, No rash, lesions, No ulcers Extremities:No digital cyanosis No clubbing, Pedal pulses intact and symmetrical Radial pulses intact and symmetrical Normal gait and station, No calf tenderness Psychiatric: Alert and oriented to person, place and time, Appropriate affect Intact judgement Neuro: Muscles Strength 5/5 in all 4 extremities, Sensation to light touch grossly present throughout, Cranial nerves II-XII grossly intact. No focal sensory deficits - Labs CBC & Chem 7: 06/09/17 05:47 06/09/17 05:47 Labs: Abnormal Lab Results - Last 24 Hours (Table) 06/09/17 06/09/17 06/09/17 Range/Units 05:47 05:47 05:47 RBC 4.22 L (4.30-5.90) m/uL Hgb 11.9 L (13.0-17.5) gm/dL Hct 36.6 L (39.0-53.0) % Neutrophils # 7.9 H (1.3-7.7) k/uL Lymphocytes # 0.9 L (1.0-4.8) k/uL APTT 62.5 H (22.0-30.0) sec Chloride 97 L (98-107) mmol/L Carbon Dioxide 33 H (22-30) mmol/L BUN 28 H (9-20) mg/dL Glucose 130 H (74-99) mg/dL Crossmatch 06/09/17 Range/Units 09:03 RBC (4.30-5.90) m/uL Hgb (13.0-17.5) gm/dL Hct (39.0-53.0) % Neutrophils # (1.3-7.7) k/uL Lymphocytes # (1.0-4.8) k/uL APTT (22.0-30.0) sec Chloride (98-107) mmol/L Carbon Dioxide (22-30) mmol/L BUN (9-20) mg/dL Glucose (74-99) mg/dL Crossmatch See Detail Assessment and Plan (1) Atrial fibrillation with rapid ventricular response Narrative/Plan: * Currently in normal sinus rhythm with PACs, paroxysmal A. fib has resolved * Continue with beta billy therapy with metoprolol, amiodarone * Echocardiogram revealing severe systolic dysfunction with EF of 25-30%, with a severely dilated left atrium * Agree with continuing the patient on several toe for anticoagulation for stroke prophylaxis Current Visit: Yes Status: Resolved Code(s): I48.91 - UNSPECIFIED ATRIAL FIBRILLATION SNOMED Code(s): 832091444743792 (2) Systolic CHF, acute Narrative/Plan: * Severe cardiomyopathy EF of 25-30% * Continue with diuresis with Lasix, continue with beta billy therapy, low- dose DORIE inhibitor and Aldactone Current Visit: Yes Status: Acute Code(s): I50.21 - ACUTE SYSTOLIC ( CONGESTIVE) HEART FAILURE SNOMED Code(s): 842217940 (3) COPD (chronic obstructive pulmonary disease) with emphysema Narrative/Plan: * Patient doing well off oxygen * Receiving ongoing treatment for his prior COPD exacerbation Current Visit: Yes Status: Acute Code(s): J43.9 - EMPHYSEMA, UNSPECIFIED SNOMED Code(s): 64666698 (4) CAD (coronary artery disease) Narrative/Plan: * Patient was noted coronary artery disease as seen on heart catheterization with moderate disease left distal mid rca, proximal left circumflex artery * Patient scheduled to have CABG on Thursday * Continue medical management Current Visit: Yes Status: Acute Code(s): I25.10 - ATHSCL HEART DISEASE OF [place] CORONARY ARTERY W/O ANG PCTRS SNOMED Code(s): 80639048 (5) Valvular heart disease Narrative/Plan: * Patient with severe mitral regurgitation scheduled for surgery on Thursday Current Visit: Yes Status: Acute Code(s): I38 - ENDOCARDITIS, VALVE UNSPECIFIED SNOMED Code(s): 236740
[2017-06-09] MEDS: SPIRONOLACTONE 25 MG TAB PO SCH (17:27)
[2017-06-09] MEDS: FUROSEMIDE 20 MG TAB PO SCH (17:32)
[2017-06-09] MEDS: SODIUM CHLORIDE 0.9% 1,000 ML IV SCH (21:07)
[2017-06-09] MEDS: HEPARIN SOD,PORK IN 0.45% NACL 25,000 UNIT in 0.45% NACL 1 500ML.BAG IV SCH (21:07)
[2017-06-10] MEDS ORDERED: PROPOFOL 1,000 MG in EMPTY BAG 1 BAG IV ONE (05:00)
[2017-06-10] MEDS ORDERED: HEPARIN SODIUM 1,000 UN/ML (10ML VL) IV ONE (05:00)
[2017-06-10] MEDS ORDERED: PHENYLEPHRINE 40 MG in SODIUM CHLORIDE 0.9% 250 ML IV ONE (05:00)
[2017-06-10] MEDS ORDERED: MAGNESIUM SULFATE SYG 4.06 MEQ/ML SYRINGE IV ONE (05:00)
[2017-06-10] MEDS ORDERED: CALCIUM CHLORIDE 100 MG/ML 10 ML SYRINGE IVP ONE (05:00)
[2017-06-10] MEDS ORDERED: NITROGLYCERIN-D5W PMX 50 MG in DEXTROSE/WATER 1 250ML.BAG IV ONE (05:00)
[2017-06-10] MEDS ORDERED: ATORVASTATIN 10 MG TAB PO ONE (05:00)
[2017-06-10] MEDS ORDERED: CLEVIDIPINE BUTYRATE 25 MG in EMPTY BAG 1 BAG IV ONE (05:00)
[2017-06-10] MEDS ORDERED: MANNITOL 25% 12.5 GM/50 ML VIAL IV ONE ×2 (05:00)
[2017-06-10] MEDS ORDERED: NITROGLYCERIN-D5W PMX 25 MG/250 ML BTL IV ONE (05:00)
[2017-06-10] MEDS ORDERED: CHLORHEXIDINE GLUCONATE 15 ML CUP MUCOUS MEM ONE (05:00)
[2017-06-10] MEDS ORDERED: PROTAMINE SULFATE 10 MG/ML 25 ML VIAL IV ONE (05:00)
[2017-06-10] MEDS ORDERED: PAPAVERINE 360 MG in SODIUM CHLORIDE 0.9% 90 ML IV ONE (05:00)
[2017-06-10] MEDS ORDERED: ALBUMIN HUMAN 25% 50 ML in EMPTY BAG 1 BAG IVPB ONE (05:00)
[2017-06-10] MEDS ORDERED: NOREPINEPHRIN 4 MG-0.9% NS PMX 4 MG/250 ML ML IV SCH (05:00)
[2017-06-10] MEDS ORDERED: METOPROLOL TARTRATE 12.5 MG TAB PO ONE (05:00)
[2017-06-10] MEDS ORDERED: ALBUMIN HUMAN 5% 500 ML in EMPTY BAG 1 BAG IVPB ONE ×6 (05:00)
[2017-06-10] MEDS ORDERED: SODIUM CHLORIDE 0.9% IRRIGATION ONE (05:00)
[2017-06-10] MEDS ORDERED: ceFAZolin 2,000 MG in SODIUM CHLORIDE 0.9% 30 ML IVPB ONE (05:00)
[2017-06-10] MEDS ORDERED: PROTAMINE SULFATE 250 MG in EMPTY BAG 1 BAG IV ONE (05:00)
[2017-06-10] MEDS ORDERED: SODIUM BICARB 8.4% 50 ML SYR (1 MEQ/ML) IV ONE (05:00)
[2017-06-10] MEDS ORDERED: INSULIN REGULAR 100 UNIT in SODIUM CHLORIDE 0.9% 100 ML IV ONE (05:00)
[2017-06-10] MEDS ORDERED: ASPIRIN 325 MG TAB PO ONE (05:00)
[2017-06-10] MEDS ORDERED: HEPARIN SODIUM,PORCINE 5,000 UNIT in SODIUM CHLORIDE 0.9% 500 ML IV ONE (05:00)
[2017-06-10] MEDS ORDERED: PHENYLEPHRINE-0.9% NACL SYG 1 MG/10 ML SYRINGE IV ONE ×4 (05:00)
[2017-06-10] MEDS ORDERED: CARDIOPLEGIC SOLN (K+ 16 MEQ/L 1,000 ML with SOD BICARB SYR 8.4% (1 MEQ/ML) 20 ML, LIDO... PERFUSION ONE ×3 (05:00)
[2017-06-10] MEDS ORDERED: ceFAZolin 2 GM in SODIUM CHLORIDE 0.9% 30 ML IVPB ONE (05:00)
[2017-06-10] MEDS ORDERED: TRANEXAMIC ACID 2,000 MG in SODIUM CHLORIDE 0.9% 180 ML IV ONE (05:00)
[2017-06-10] MEDS ORDERED: CEFAZOLIN IRRIGATION ONE (05:00)
[2017-06-10] MEDS ORDERED: LACTATED RINGERS 1,000 ML IV SCH (06:00)
[2017-06-10] MEDS ORDERED: IV FLUID CONTINUATION 1,000 ML IV ONE (06:14)
[2017-06-10 08:29] LABS: ABG Base Excess 7.6 mmol/L; ABG HCO3 32 mmol/L (21-25); ABG Oxygen Saturation 98.4 % (94-97); ABG PCO2 45 mmHg (35-45); ABG PH 7.47 (7.35-7.45); ABG Potassium Whole Blood 3.5 mmol/L (3.4-4.5); ABG Sodium Whole Blood 140 mmol/L (135-146); ABG TCO2 34 mmol/L (19-24)
[2017-06-10 09:19] LABS: ABG PO2 >420 mmHg (83-108)
--- NOTE | 2017-06-10 09:51 | P.VSCSTY ---
Greater Saphenous Vein Mapping This is bilateral lower extremity greater saphenous vein mapping. Date of service 06/05/2017 Vein quality and ultrasound appearance we see no wall changes or intraluminal thrombus. Vein size groin right 4.1 x 4.6 groin left 4.7 x 6.7 High thigh right 3.0 x 2.4 high thigh left 2.6 x 3.2 Mid thigh right 2.6 x 2.5 mid thigh left 2.4 x 2.7 Above-knee right 2.3 x 3.1 above-knee left 1.8 x 3.0 Below knee right 2.8 x 3.3 below-knee left 2.2 x 3.1 Mid calf right 1.9 x 2.4 mid calf left 2.1 x 3.3 Ankle right to 2.4 x 2.8 ankle left 1.8 x 2.2 Impression usable bilateral greater saphenous vein. Size a bit consistent, especially on the left.
[2017-06-10 10:14] LABS: ABG Base Excess 6.3 mmol/L; ABG HCO3 33 mmol/L (21-25); ABG Oxygen Saturation 97.7 % (94-97); ABG PCO2 59 mmHg (35-45); ABG PH 7.36 (7.35-7.45); ABG PO2 113 mmHg (83-108); ABG Potassium Whole Blood 3.6 mmol/L (3.4-4.5); ABG Sodium Whole Blood 140 mmol/L (135-146); ABG TCO2 35 mmol/L (19-24)
[2017-06-10 10:51] LABS: ABG Base Excess 3.4 mmol/L; ABG HCO3 29 mmol/L (21-25); ABG Oxygen Saturation 99.7 % (94-97); ABG PCO2 47 mmHg (35-45); ABG PO2 377 mmHg (83-108); ABG Potassium Whole Blood 3.7 mmol/L (3.4-4.5); ABG Sodium Whole Blood 137 mmol/L (135-146); ABG TCO2 30 mmol/L (19-24)
[2017-06-10 11:29] LABS: ABG HCO3 30 mmol/L (21-25); ABG Oxygen Saturation 98.6 % (94-97); ABG PCO2 43 mmHg (35-45); ABG PH 7.45 (7.35-7.45); ABG PO2 288 mmHg (83-108); ABG Potassium Whole Blood 4.2 mmol/L (3.4-4.5); ABG Sodium Whole Blood 137 mmol/L (135-146); ABG TCO2 31 mmol/L (19-24)
[2017-06-10 12:02] LABS: ABG Base Excess 4.5 mmol/L; ABG HCO3 30 mmol/L (21-25); ABG Oxygen Saturation 99.5 % (94-97); ABG PCO2 50 mmHg (35-45); ABG PH 7.39 (7.35-7.45); ABG PO2 252 mmHg (83-108); ABG Potassium Whole Blood 4.4 mmol/L (3.4-4.5); ABG Sodium Whole Blood 137 mmol/L (135-146); ABG TCO2 32 mmol/L (19-24)
[2017-06-10 12:39] LABS: ABG Base Excess 3.8 mmol/L; ABG HCO3 29 mmol/L (21-25); ABG Oxygen Saturation 99.7 % (94-97); ABG PCO2 46 mmHg (35-45); ABG PH 7.41 (7.35-7.45); ABG PO2 297 mmHg (83-108); ABG Potassium Whole Blood 4.7 mmol/L (3.4-4.5); ABG Sodium Whole Blood 137 mmol/L (135-146); ABG TCO2 30 mmol/L (19-24)
[2017-06-10 14:12] LABS: ABG Base Excess 0.9 mmol/L; ABG HCO3 26 mmol/L (21-25); ABG Oxygen Saturation 98.5 % (94-97); ABG PCO2 45 mmHg (35-45); ABG PH 7.37 (7.35-7.45); ABG PO2 127 mmHg (83-108); ABG Potassium Whole Blood 3.7 mmol/L (3.4-4.5); ABG Sodium Whole Blood 141 mmol/L (135-146); ABG TCO2 28 mmol/L (19-24)
[2017-06-10] MEDS ORDERED: Potassium Replacement Protocol 1 EACH MISC MISCELLANE PRN (15:11)
[2017-06-10] MEDS ORDERED: CALCIUM GLUCONATE 2,000 MG in SODIUM CHLORIDE 0.9% 100 ML IVPB PRN (15:11)
[2017-06-10] MEDS ORDERED: Phosphorus Replacement Protoco 1 EACH MISC MISCELLANE PRN (15:11)
[2017-06-10] MEDS ORDERED: METOCLOPRAMIDE 5 MG/ML 2 ML VIAL IVP PRN (15:11)
[2017-06-10] MEDS ORDERED: AMIODARONE 450 MG in DEXTROSE 5% IN WATER 250 ML IV PRN ×2 (15:11)
[2017-06-10] MEDS ORDERED: MORPHINE SULFATE 4 MG/0.8 ML SYRINGE (INJ) IVP PRN (15:11)
[2017-06-10] MEDS ORDERED: INSULIN REGULAR 100 UNIT in SODIUM CHLORIDE 0.9% 100 ML IV SCH (15:11)
[2017-06-10] MEDS ORDERED: DEXTROSE 5% IN WATER 100 ML with AMIODARONE 150 MG IV PRN (15:11)
[2017-06-10] MEDS ORDERED: BENZOCAINE/MENTHOL LOZENG 1 EACH LOZENGE MUCOUS MEM PRN (15:11)
[2017-06-10] MEDS ORDERED: Magnesium Replacement Protocol 1 EACH MISC MISCELLANE PRN (15:11)
[2017-06-10] MEDS ORDERED: ONDANSETRON 4 MG/2 ML VIAL IVP PRN (15:11)
[2017-06-10] MEDS: PROPOFOL 1,000 MG in EMPTY BAG 1 BAG IV SCH ×2 (15:30→23:03)
[2017-06-10 15:41] LABS: Glucose,Whole Blood 113 mg/dL (75-99)
[2017-06-10] MEDS: ALBUMIN HUMAN 5% 250 ML in EMPTY BAG 1 BAG IVPB PRN ×4 (15:50→17:37)
[2017-06-10 15:52] LABS: Ionized Calcium 4.7 mg/dL (4.5-5.3)
--- NOTE | 2017-06-10 15:53 | P.OP ---
Date of Procedure: 06/10/17 Preoperative Diagnosis: Coronary artery disease, mitral regurgitation, acute on chronic congestive heart failure, cardiomyopathy, paroxysmal atrial fibrillation Postoperative Diagnosis: Same Procedure(s) Performed: Coronary artery bypass grafting 4 with left internal mammary artery graft to LAD, saphenous vein grafts to obtuse marginal, high diagonal, right coronary arteries. Mitral valve annuloplasty with 26 mm physio-Ring. Modified Schuler maze procedure with complete left-sided lesion set and ligation of the left atrial appendage. Endovascular vein harvest. RUT by anesthesia. Implants: 26 mm physio-2 annuloplasty ring Anesthesia: JENNIFER Surgeon: Reinaldo Davila Investment Professional #1: Bebeto Hagen Investment Professional #2: Ritesh Monet Estimated Blood Loss (ml): 500 IV fluids (ml): 2,000 Urine output (ml): 500 Pathology: none sent Condition: stable Disposition: ICU Indications for Procedure: 71-year-old male presented with shortness of breath underwent cardiac catheterization demonstrating moderate to severe left main coronary artery disease as well as moderate to severe right coronary artery disease. The patient went into flash pulmonary edema following his cardiac catheterization. He is found to have severely decreased left ventricular function with ejection fraction below 20%. Was also found to have severe central mitral regurgitation with restriction of the leaflets and Malad position due to ventricular dilatation and annular dilatation. He also had presented with paroxysmal atrial fibrillation with rapid ventricular response and had been converted with amiodarone prior to undergoing cardiac catheterization. Coronary bypass grafting with mitral repair and modified Schuler maze were recommended. Operative Findings: Findings and RUT were similar to that on the preoperative RUT except there was no significant tricuspid regurgitation noted. Following the revascularization and mitral repair there was no mitral regurgitation noted on the follow-up RUT. Ventricular function was below 20% on the preoperative RUT and somewhat improved on the postop RUT. Coronary targets were good. Mitral valve was regurgitant but the valve apparatus was normal. Left ventricle was dilated and boggy but without evidence of obvious scar. Description of Procedure: Patient was brought to the operating room, placed supine on the operating table anesthetized and intubated. [place]-Dannie catheter had been placed via the right internal jugular approach. Mary and nasogastric tubes were placed. The anterior torso and lower extremities were sterilely prepped and draped. Saphenous vein was initially taken from the mid calf to the groin using endovascular vein harvest technique and it was a greater saphenous vein was harvested. This appeared good on the scope brought on preparing the vein on the back table there was noted to be a significant injury to the vein at about the level of the knee and only the thigh vein could be used. This was not felt to be adequate and a second piece of greater saphenous vein was taken from the left thigh using endovascular vein harvest technique. This was good vein. Simultaneous to the vein harvest, midline sternotomy was performed and left hemisternum retracted upwards left internal mammary artery harvested on a vascularized pedicle left intact on its origin from the subclavian and divided distally. Left pleural space was drained with a 32-[place] chest tube. There was about 200 mL of serous fluid present in the left chest. The mammary artery harvested, standard sternal retractor was placed and the pericardium was opened in the midline. Right pleural space was also opened and about 500 mL of serous fluid was evacuated from the right pleural space. 32-[place] chest tube was placed in the right pleural space. Patient was systemically heparinized and cannulated for cardiopulmonary bypass. A 7 mm arterial cannula was placed in the distal ascending aorta. 36 straight venous cannula was placed through the right atrial appendage into the inferior vena cava. 30 right angle cannula was placed in the superior vena cava. Retrograde and antegrade cardioplegia lines were placed in standard fashion. Once the vein was ready and prepared and confirmed to be adequate, the patient was placed on cardioplegia bypass. We encircled the superior and inferior vena cava with tapes. We then encircled the right-sided pulmonary veins by bluntly dissecting behind the superior pulmonary vein into the oblique sinus. AtriCure clamp was placed across the left atrium at the insertion of the right pulmonary veins and 2 parallel lines were created. Next we performed a similar dissection on the left side, dividing the ligament of Demetrius with electrocautery and dissecting behind the pulmonary veins into the oblique sinus. The again passed the AtriCure clamp across the left atrium this time at the insertion of the left pulmonary veins and again created 2 parallel lines. The heart was now lowered into anatomic position. The aorta was crossclamped and the heart was arrested with a liter of cold crystalloid antegrade cardioplegia followed by 500 mL of retrograde cardioplegia after 1 hour 2 subsequent doses of retrograde cardioplegia were given at 20 minute intervals. Saphenous vein grafts were performed first. We performed a saphenous vein graft to the right coronary artery which was a 2 mm vessel of good quality using running 7-0 Prolene suture. The next 4 performed a second saphenous vein graft to the high diagonal which was again a 2 mm vessel of good quality. Again we 7-0 running Prolene. Final saphenous vein was to the obtuse marginal fairly proximally which was a 1.5 mm vessel. Third piece of saphenous vein was used again with running 7-0 Prolene suture. Upon completion of each vein graft we first probed distally and confirmed patency and then tied and flushed with cold blood cardioplegia to confirm hemostasis. Veins were cut to appropriate length to reach the ascending aorta. Next RADER to the LAD was performed. The LAD was opened fairly proximally where it was over 2 mm vessel with mild diffuse disease present.. RADER to the LAD anastomosis was performed with running 8-0 Prolene suture. Completion anastomosis it was probed with a 2 mm probe and then the suture tied and hemostasis checked by briefly opening the inflow to the RADER. Next the interatrial groove was developed and the left atrium entered through the inner atrial groove. The mitral valve was exposed with the [place] retractor. Superior and inferior connecting roof and floor lesions were created using the AtriCure clamp between the pulmonary vein ablations on the left and right side. A mitral annular connecting line was then made from the inferior floor of the left atrium to the middle of the posterior portion of the annulus of the mitral valve. This was completed with the bipolar pen. We then closed the left atrial appendage with a 22 layer running closure of 3-0 Prolene. We then placed annuloplasty sutures around the annulus of the mitral valve and tested the mitral valve which was noted to be severely regurgitant. There was no evidence of any structural problem with the valve. The anterior leaflet was sized and it was between a 26 and a 28 mm anterior leaflet. A 26 mm physio-2 ring was chosen and the annuloplasty sutures were placed through the annuloplasty ring, it was seated and the sutures tied. Now and we retested the valve there was no evidence of regurgitation. The left atriotomy was closed with a single layer running closure of 3-0 Prolene. 34 mm punch holes were created in the ascending aorta and the proximal anastomoses constructed using running 6-0 Prolene suture. Completion of the proximal anastomoses, the patient was placed in Trendelenburg and the cross-clamp was removed. Vein grafts were de-aired by needle holes and the inflow open. The inflow was open to the RADER to the LAD. The distal anastomoses were checked for hemostasis. The heart slowly returned to a sinus rhythm. Atrial and ventricular pacing wires were placed and the patient was paced. The inferior vena caval cannula was pulled back into the right atrium and the superior vena caval cannula was clamped and removed. Retrograde cardioplegia line was removed. Heart was de-aired under RUT guidance with a 16- gauge Angiocath in the apex of the left ventricle. After this the aortic cardioplegia/vent line was removed and reinforced with a 40 pledgeted Prolene suture. Patient was then weaned from cardiopulmonary bypass without the use of inotropic support. He had been cooled to a zeke of 34 and with had been rewarmed to systemic temperature. Patient from cardiotomy bypass without the need for inotropic support. Heparin was reversed with protamine and the patient was decannulated in standard fashion. Hemostasis was obtained throughout. The mediastinum was drained with 236-[place] chest tubes. Was irrigated with antibiotic solution and once good hemostasis had been verified the sternum was closed with 8 sternal wires. Fascia was closed with 0 Ethibond subcutaneous and subcuticular layers with layers of Vicryl suture. Sterile dressings were applied and the patient was transferred to 6 ICU in stable condition on no inotropic support having received no blood transfusions. RUT at the completion of the case showed somewhat improved ventricular function and no evidence of mitral regurgitation. Cardiac index was 1.7 at the beginning of the case, 3.3 on separation from cardiopulmonary bypass, 2.5 after closure of the chest.
[2017-06-10 15:58] LABS: Basophils % (A) 0 %; Eosinophils % (A) 0 %; HCT 22.9 % (39.0-53.0); Hypochromasia Slight; INR 1.5 (<1.2); Lymphocytes # (A) 0.5 k/uL (1.0-4.8); Lymphocytes % (A) 4 %; MCH 27.9 pg (25.0-35.0); MCV 89.8 fL (80.0-100.0); Monocytes # (A) 0.3 k/uL (0-1.0); Monocytes % (A) 3 %; Neutrophils # (A) 10.2 k/uL (1.3-7.7); Neutrophils % (A) 92 %; Partial Thromboplastin Time 40.6 sec (22.0-30.0); Prothrombin Time 14.1 sec (9.0-12.0); RBC 2.56 m/uL (4.30-5.90); RDW 13.9 % (11.5-15.5)
--- NOTE | 2017-06-10 15:59 | P.PN ---
Subjective Progress Note Date: 06/10/17 Principal diagnosis: Severe mitral regurgitation and cardiomyopathy with LV dysfunction, moderate pulmonary hypertension, and coronary artery disease This is a very pleasant 71-year-old gentleman who follows with Dr. Mauricio Keith as his primary care physician. He has history of Crohn's disease, nephrolithiasis status post lithotripsy him a BPH, hypertension, tinnitus. He has has a history of previous tobacco dependence and suspected COPD. He has not been seen by a digital campaign manager in the past. He had been having ongoing issues with shortness of breath, yellow productive sputum. He had been treated for bronchitis 2 with antibiotics and steroids. Never quite back to his baseline. He did have a fever of 102.4. He presented to the emergency room at [facility] with increasing shortness of breath, cough, congestion palpitations. He was found to be in atrial fibrillation with a rapid ventricular response and was subsequently transferred here to [facility] yesterday morning. His chest x-ray did reveal evidence of fluid volume overload and congestive heart failure. An echocardiogram revealed severely impaired left ventricular systolic function with ejection fraction 25-30%. There is also noted severe global hypokinesia. He has moderate to severe mitral regurgitation. Moderate to severe tricuspid regurgitation. Moderate pulmonary hypertension with an RVSP of 57.96 mmHg. ProBNP 6190. Creatinine 1.20. He has been initiated on Lasix 20 mg IV push every 12 hours. He is seen today in consultation on the selective care unit. He is currently sitting up in a chair at the bedside. He is awake and alert in no acute distress. He is breathing easier today as compared to yesterday. He is maintaining good O2 saturations in the 90s on room air. He has since converted back to normal sinus rhythm. He is afebrile. No fever chills or night sweats. No productive cough. The cultures reveal no growth to date. He has been initiated on Xarelto. He is also on bronchodilators, IV Solu-Medrol and antibiotics in the form of Augmentin. The patient is seen again today 06/03/2017 in follow-up on the selective care unit. He is currently resting comfortably in bed. He did undergo cardiac catheterization this morning. Report is pending. Further interventions are being discussed. He denies any shortness of breath currently. No chest pain or palpitations. He is currently maintaining good O2 saturations in the 90s on room air. He is hemodynamically stable. Blood and sputum cultures reveal no growth to date. White count 9.7. Hemoglobin 10.9. Creatinine 1.41. He is currently on bronchodilators, IV Solu-Medrol, Augmentin. Xarelto currently on hold. On 06/04/2017 patient seen in follow-up on selective care unit. Patient underwent cardiac catheterization on 06/03/2017 was found to have moderate disease in the distal left main and the mid RCA and moderate disease in the proximal left circumflex. In the plan is to treat him medically for his coronary artery disease. Yesterday in the afternoon patient back into atrial fibrillation with RVR, started on Cardizem drip, and currently his rate is ranging anywhere from 80-110 BPM. Patient had an episode of acute respiratory distress this morning, she was tachypneic, coughing, and was given 40 mg of IV Lasix for what appeared to be acute pulmonary edema. Chest x-ray was obtained, and showed pulmonary venous hypertension, and interstitial edema. Patient was placed on 100% nonrebreather, once releasing his FiO2 was weaned back down, and currently the patient is on 3 L per nasal cannula with O2 sat 94%. She remains on oral prednisone, Xarelto for anticoagulation. Responded well to IV diuretics. On 06/05/2088 seeing Cb for a follow-up. Obviously the patient is less short of breath compared to yesterday. Note that the patient went into an acute pulmonary edema yesterday and he became acutely short of breath. He responded nicely to diuretics. He is going to have a RUT to evaluate the mitral valve regurgitation today and its severity. The patient is still in atrial fibrillation. Rate is under better control and the patient is currently off the Cardizem drip. He has having no chest pain. No nausea. No vomiting. No cough or sputum production. Cardiology is on the case and the patient is currently anticoagulated with Xarelto. He is also on metoprolol 25 mg by mouth twice a day and amiodarone 400 mg by mouth twice a day and the patient is also on a combination of Lasix and Aldactone. The patient is also completing a course of Augmentin and a prednisone burst taper regarding acute bronchitis/ COPD exacerbation. For now the plan is to proceed with cardiac evaluation with RUT. On 06/06/2017, I'm seeing this patient for a follow-up. Overall poor status is stable and the patient is less short of breath compared to yesterday. He is still being investigated regarding his valvular disease knowing that he has severe mitral regurgitation and he may be a potentially candidate for mitral valve repair. History nature fibrillation at the rate is controlled. He is on anticoagulation for now and he is on Xarelto. No chest pain. No angina. No nausea. No vomiting. No swelling in lower extremities. On and off is still coughing and he is being treated with a prednisone burst taper regarding his COPD exacerbation is also on a course of Augmentin. The patient was seen by Dr. Reinaldo Davila. He is on Lasix 40 mg IV every 12 hours. He is also on Aldactone 25 minutes by mouth daily. No other significant events over the past 24 hours. He is also on amiodarone 400 mg by mouth twice a day in addition to his beta billy 25 mg of metoprolol twice a day. On 06/07/2017, the patient is feeling much better. He is off oxygen. His emanating. A bedside spirometry was done and his FEV1 is normal to 58% of predicted consistent with COPD yet this can be and also a underestimation of the lung capacity knowing that the patient was in CHF and had lateral pleural effusions. In any rate his cardiac rhythm is back to sinus. He is having paroxysmal atrial fibrillation and this morning he was noted to be in sinus rhythm. No chest pain. No major swelling lower extremities. No altered mentation. He is completing a prednisone burst taper regarding his COPD exacerbation. I elected discussion about this case with cardiology and cardiothoracic surgery. The patient will need surgery knowing that he has severe mitral regurgitation. The images were reviewed by the surgeon. The consensus is that the patient will need an intra-aortic balloon pump placed to optimize his postoperative recovery. If surgery is being contemplated, this will be done probably on Thursday with insertion of intra-aortic balloon pump. The patient otherwise is doing well. He is on oral Lasix. Is on Zestril. Is on Lopressor. He is on a prednisone burst taper. No fever or chills. No other complaints otherwise for now. Patient was reevaluated today on 06/08/2017, patient is feeling great, asymptomatic, off the oxygen, looking forward for his planned surgery in the next 2 days. Patient apparently has severe mitral regurgitation, and he would require surgical intervention I believe it was scheduled for next one day. CBC was noted to be normal, basic metabolic profile is normal, bicarb is 36. Patient denies any cough wheezing or shortness of breath at present. The patient is seen again today 06/09/2017 in follow-up on the selective care unit. He is currently sitting up in a chair at the bedside. He is feeling quite well today. He denies any worsening shortness of breath, cough or congestion. His been maintaining good O2 saturations in the mid 90s on room air. He's been afebrile. Hemodynamically stable. No chest pain or palpitations. White count 9.4. Hemoglobin 11.9. Creatinine 0.94. Reevaluated today on 06/10/2017, patient underwent mitral valve repair, and four- vessel bypass today. Transferred back to the ICU on mechanical ventilation, and I evaluated the patient postoperatively. His ventilator settings were reviewed, patient is on tidal volume of 500, IMV rate of 12, PEEP of 8, and FiO2 of 100% at this point. ABG is pending. Chest x-ray showed mostly postoperative changes, and proper placement of endotracheal tube and chest tubes. Patient is fully sedated, and mechanically ventilated. Objective - Vital Signs Vital signs: Vital Signs Temp 97.8 F 06/10/17 06:24 Pulse 68 06/10/17 06:24 Resp 16 06/10/17 06:24 BP 123/83 06/10/17 06:24 Pulse Ox 96 06/10/17 06:24 Intake & Output 06/09/17 06/10/17 06/10/17 18:59 06:59 18:59 Intake Total 1509.32 160 33 Output Total 600 2625 Balance 909.32 160 -2592 Weight 82.8 kg 81.6 kg Intake: IV 33 Intake, IV Titration 439.32 160 Amount Heparin Sod,Pork in 0.45% 239.32 NaCl 25,000 unit In 0.45 % NaCl 1 500ml.bag @ 12 UNITS/KG/HR 19.6 mls/hr IV .Q24H [facility] Rx#: [id number] Heparin Sodium,Porcine 5, 200 000 unit In Sodium Chloride 0.9% 500 ml @ As Directed IV ONCE ONE Rx# :[id number] Sodium Chloride 0.9% 1, 160 000 ml @ 20 mls/hr IV . Q24H [facility] Rx#:[id number] Oral 1070 Output: Urine 600 425 Estimated Blood Loss 2200 Other: Voiding Method Toilet Toilet Urinal Urinal # Voids 1 - Exam GENERAL EXAM: Revealed a 71-year-old white male sedated, on mechanical ventilation, in no distress.. HEAD: Normocephalic. EYES: Normal reaction of pupils, equal size. NOSE: Clear with pink turbinates. THROAT: Moist mucous membranes. No erythema or exudates. The tracheal tube is intact. Orogastric tube is also intact. NECK: No masses, no JVD. No thyromegaly, endotracheal tube is intact. CHEST: Symmetrical chest expansion bilaterally, chest tubes were noted, good breath sound bilaterally no rhonchi, no wheezes. CVS: Regular rate and rhythm, normal S1 and S2, 2/6 systolic murmur thought the precordium. ABDOMEN: No hepatosplenomegaly, normal bowel sounds, no guarding or rigidity. SPINE: No scoliosis or deformity SKIN: No rashes CENTRAL NERVOUS SYSTEM: Cannot be assessed, patient is fully sedated. EXTREMITIES: There is trace peripheral edema. No clubbing, no cyanosis. Both lower extremities are covered with Haim bandage. - Labs CBC & Chem 7: 06/09/17 05:47 06/09/17 05:47 Labs: Abnormal Lab Results - Last 24 Hours (Table) 06/09/17 06/10/17 06/10/17 Range/Units 09:03 08:29 10:14 ABG pH 7.47 H (7.35-7.45) ABG pCO2 59 H (35-45) mmHg ABG pO2 >420 H 113 H (83-108) mmHg ABG HCO3 32 H 33 H (21-25) mmol/L ABG Total CO2 34 H 35 H (19-24) mmol/L ABG O2 Saturation 98.4 H 97.7 H (94-97) % ABG Hematocrit 32 L 30 L (34.0-46.0) % ABG Potassium (3.4-4.5) mmol/L ABG Ionized Calcium (4.5-5.3) mg/dL ABG Glucose 114 H (75-99) mg/dL Hemoglobin 10.3 L 9.9 L (13.0-17.5) gm/dL POC Glucose (mg/dL) (75-99) mg/dL Arterial Blood Potassium (3.4-4.5) mmol/L Arterial Blood Glucose 114 H (75-99) mg/dL Crossmatch See Detail 06/10/17 06/10/17 06/10/17 Range/Units 10:51 11:29 12:02 ABG pH (7.35-7.45) ABG pCO2 47 H 50 H (35-45) mmHg ABG pO2 377 H 288 H 252 H (83-108) mmHg ABG HCO3 29 H 30 H 30 H (21-25) mmol/L ABG Total CO2 30 H 31 H 32 H (19-24) mmol/L ABG O2 Saturation 99.7 H 98.6 H 99.5 H (94-97) % ABG Hematocrit 25 L 26 L 25 L (34.0-46.0) % ABG Potassium (3.4-4.5) mmol/L ABG Ionized Calcium 4.0 L 4.4 L 4.4 L (4.5-5.3) mg/dL ABG Glucose 100 H 122 H 141 H (75-99) mg/dL Hemoglobin 8.2 L 8.6 L 8.1 L (13.0-17.5) gm/dL POC Glucose (mg/dL) (75-99) mg/dL Arterial Blood Potassium (3.4-4.5) mmol/L Arterial Blood Glucose 100 H 122 H 141 H (75-99) mg/dL Crossmatch 06/10/17 06/10/17 06/10/17 Range/Units 12:38 14:12 15:38 ABG pH (7.35-7.45) ABG pCO2 46 H (35-45) mmHg ABG pO2 297 H 127 H (83-108) mmHg ABG HCO3 29 H 26 H (21-25) mmol/L ABG Total CO2 30 H 28 H (19-24) mmol/L ABG O2 Saturation 99.7 H 98.5 H (94-97) % ABG Hematocrit 26 L 24 L (34.0-46.0) % ABG Potassium 4.7 H (3.4-4.5) mmol/L ABG Ionized Calcium 4.3 L 4.2 L (4.5-5.3) mg/dL ABG Glucose 143 H 119 H (75-99) mg/dL Hemoglobin 8.3 L 7.9 L (13.0-17.5) gm/dL POC Glucose (mg/dL) 113 H (75-99) mg/dL Arterial Blood Potassium 4.7 H (3.4-4.5) mmol/L Arterial Blood Glucose 143 H 119 H (75-99) mg/dL Crossmatch Assessment and Plan Assessment: 1: Status post CABG and mitral valve repair postoperative day #0. 1 coronary artery disease with evidence of severe mitral regurgitation, impaired LV function with an ejection fraction of around 25-30% in addition to dilatation of the right ventricle and moderate degree of pulmonary hypertension with a PA pressure estimated to be around 57 and addition to underlying coronary artery disease. 2 diffuse emphysema with centrilobular changes as evident on the CAT scan of the chest, 3 bilateral pleural effusion, small, right more than left, likely related to CHF , more optimized 4 atrial fibrillation with rapid ventricular response, recovered and the patient is still having episodes of 80 fibrillation yet at the time of evaluation this morning the patient's rhythm was sinus. 5 CHF with an ejection fraction of 25-30% based on echocardiogram. 6 BPH 7 Crohn's disease 8 hypertension 9 nephrolithiasis Recommendation: Continue ventilatory support, adjust ventilator settings accordingly based on the ABG, may consider weaning and extubation later this evening or early in the morning depending on his overall clinical status over the next few hours. We'll continue to follow. Time with Patient: Greater than 30
[2017-06-10 16:00] LABS: ABG Base Excess -0.7 mmol/L; ABG HCO3 26 mmol/L (21-25); ABG Oxygen Saturation 99.4 % (94-97); ABG PCO2 53 mmHg (35-45); ABG PO2 >400 mmHg (83-108); ABG TCO2 28 mmol/L (19-24)
[2017-06-10 16:01] LABS: HGB 7.1 gm/dL (13.0-17.5); Platelet Count 138 k/uL (150-450)
[2017-06-10 16:02] LABS: Glucose,Whole Blood 105 mg/dL (75-99)
[2017-06-10 16:03] LABS: ALT 24 U/L (21-72); AST 43 U/L (17-59); Albumin 3.1 g/dL (3.5-5.0); Alkaline Phosphatase 30 U/L (38-126); Anion Gap 9 mmol/L; Blood Urea Nitrogen 21 mg/dL (9-20); Calcium 7.4 mg/dL (8.4-10.2); Carbon Dioxide 26 mmol/L (22-30); Chloride 110 mmol/L (98-107); Glucose 98 mg/dL (74-99); Magnesium 3.9 mg/dL (1.6-2.3); Potassium 4.4 mmol/L (3.5-5.1); Sodium 145 mmol/L (137-145); Total Bilirubin 0.6 mg/dL (0.2-1.3); Total Protein 4.5 g/dL (6.3-8.2)
[2017-06-10] MEDS: CLEVIDIPINE BUTYRATE 25 MG in EMPTY BAG 1 BAG IV SCH ×2 (16:10→23:00)
[2017-06-10] MEDS: SODIUM CHLORIDE 0.9% 1,000 ML IV SCH (16:10)
[2017-06-10] MEDS: NITROGLYCERIN-D5W PMX 50 MG in DEXTROSE/WATER 1 250ML.BAG IV SCH ×2 (16:10→23:02)
--- NOTE | 2017-06-10 16:10 | XR ---
EXAMINATION TYPE: XR chest 1V portable DATE OF EXAM: 06/10/2017 COMPARISON: 06/08/2018 HISTORY: Postop exam. TECHNIQUE: Single frontal view of the chest is obtained. FINDINGS: Again there is an enlarged cardiac silhouette. Mild pulmonary vascular congestion is seen throughout. Left basilar atelectasis is noted in addition to blunting of the costophrenic angle. Bila teral thoracostomy tubes have been placed. Endotracheal tube terminates just above the aortic arch in ferior to the clavicular heads, appropriately placed. Enteric tube appears slightly cephalad in place ment with recommendation for advancement approximately 3 5 cm for optimal placement. Mediastinal drai n is seen centrally. [place]-Dannie catheter from a right internal jugular approach appears to have its di stal tip in the pulmonary outflow tract. Subcutaneous emphysema is noted along the left supraclavicul ar region. No gross evidence of pneumothorax. New mediastinal clips and median sternotomy wires are s een. IMPRESSION: 1. Lines and tubes as described above with recommendation of advancement of the enteric tube approxim ately 3 to 5 cm for optimal placement. 2. Mild pulmonary edema, probable trace left pleural effusion and left basilar atelectasis. 3. Subcutaneous emphysema in the left supraclavicular region.
[2017-06-10] MEDS: ceFAZolin IN SWFI 2 GM/20 ML SYRINGE IVP SCH (16:11)
[2017-06-10] MEDS: LACTATED RINGERS 1,000 ML IV SCH (16:11)
[2017-06-10] MEDS: IPRATROPIUM-ALBUTEROL 3 ML NEB INHALATION SCH ×3 (16:25→23:51)
[2017-06-10] MEDS ORDERED: NALOXONE 0.4 MG/ML 1 ML VIAL IV PRN (16:26)
[2017-06-10 16:42] LABS: HCT 22.3 % (39.0-53.0); Hypochromasia Slight; MCH 27.6 pg (25.0-35.0); MCHC 30.7 g/dL (31.0-37.0); MCV 89.9 fL (80.0-100.0); Mean Platelet Volume 8.4; Platelet Count 129 k/uL (150-450); RBC 2.48 m/uL (4.30-5.90); RDW 13.9 % (11.5-15.5); WBC 9.4 k/uL (3.8-10.6)
[2017-06-10 16:44] LABS: HGB 6.9 gm/dL (13.0-17.5)
[2017-06-10 16:58] LABS: Band Neutrophils % 2 %; Lymphocytes # (M) 1.13 k/uL (1.0-4.8); Monocytes # (M) 0.28 k/uL (0-1.0); Neutrophils % (M) 83 %; Nucleated Red Blood Cells 0 /100 WBC (0-0); Polychromasia Present; Total Cells Counted 100
[2017-06-10 17:34] LABS: Appearance,Urine Turbid (Clear); Bacteria,Urine Rare /hpf; Bilirubin,Urine Negative (Negative); Blood,Urine Large (Negative); Budding Yeast,Urine Occasional /hpf; Color,Urine Red; Glucose,Urine (UA) Negative (Negative); Ketones,Urine Negative (Negative); Leukocyte Esterase,Urine Negative (Negative); Mucus,Urine Rare /hpf; Nitrite,Urine Negative (Negative); PH, Urine 5.5 (5.0-8.0); Protein,Urine 2+ (Negative); RBC,Urine >182 /hpf (0-5); Specific Gravity,Urine 1.025 (1.001-1.035); Urobilinogen,Urine <2.0 mg/dL (<2.0); WBC,Urine 89 /hpf (0-5)
[2017-06-10] MEDS ORDERED: NOREPINEPHRIN 16 MG-0.9%NS PMX 16 MG/250 ML ML IV SCH (17:45)
--- NOTE | 2017-06-10 17:45 | P.PN ---
Subjective Progress Note Date: 06/10/17 Patient is currently sedated on propofol, and mechanically intubated following his 4 vessel CABG with left internal mammary artery graft to LAD saphenous vein graft to obtuse marginal high diagonal right coronary arteries and mitral valve annuloplasty with physio ring and is postop day #0. Currently the patient is hemodynamically stable, but is having a postop anemia likely secondary to Xarelto coagulopathy and has bloody output from his mediastinal and pleural tubes 2 hours postop at 950 cc and 3 50 mL respectively. Objective - Vital Signs Vital signs: Vital Signs Temp 95.7 F L 06/10/17 17:12 Pulse 80 06/10/17 17:12 Resp 20 06/10/17 17:12 BP 90/48 06/10/17 17:12 Pulse Ox 96 06/10/17 17:12 Intake & Output 06/09/17 06/10/17 06/10/17 18:59 06:59 18:59 Intake Total 1509.32 160 537 Output Total 600 2935 Balance 909.32 160 -2398 Weight 82.8 kg 81.6 kg Intake: IV 33 Intake, IV Titration 439.32 160 Amount Heparin Sod,Pork in 0.45% 239.32 NaCl 25,000 unit In 0.45 % NaCl 1 500ml.bag @ 12 UNITS/KG/HR 19.6 mls/hr IV .Q24H [facility] Rx#: [id number] Heparin Sodium,Porcine 5, 200 000 unit In Sodium Chloride 0.9% 500 ml @ As Directed IV ONCE ONE Rx# :[id number] Sodium Chloride 0.9% 1, 160 000 ml @ 20 mls/hr IV . Q24H [facility] Rx#:[id number] Oral 1070 Blood Product 504 Platelet Pheresis Acda2 194 Unit [id number] Rc As-1 Unit 310 [id number] Output: Chest Tube Drainage 310 Right/Left Mediastinal 220 Right/Left Pleural Chest 90 Tube Urine 600 425 Estimated Blood Loss 2200 Other: Voiding Method Toilet Toilet Urinal Urinal # Voids 1 - Exam Constitutional: 71-year-old male sedated and mechanically intubated Eyes: Anicteric sclerae, moist conjunctiva, no lid-lag, PERRLA ENMT: NC/AT,Oropharynx clear, no erythema, exudates Neck:Supple, FROM, no masses, or JVD, No carotid bruits; No thyromegaly, Cordis and PA lines in place Lungs: Clear to auscultation, Clear to percussion, Normal respiratory effort, no accessory muscle use Cardiovascular: Heart regular in rate and rhythm, 2/6 systolic heart murmur in the precordium, gallops, or rubs no peripheral edema, mediastinal and pleural tubes in place Abdominal: Soft Nontender, nom distended, no guarding, no rebound or rigidity, Normoactive bowel sounds No hepatomegaly, No splenomegaly, No palpable mass No abdominal wall hernia noted Skin: Normal temperature, tone, texture, turgor, No induration No subcutaneous nodules, No rash, lesions, No ulcers Extremities:No digital cyanosis No clubbing, Pedal pulses intact and symmetrical Radial pulses intact and symmetrical Normal gait and station, No calf tenderness Psychiatric: Alert and oriented to person, place and time, Appropriate affect Intact judgement Neuro: Unable to fully assess his neurological system as the patient is Sedated and intubated - Labs CBC & Chem 7: 06/10/17 16:20 06/10/17 15:35 Labs: Abnormal Lab Results - Last 24 Hours (Table) 06/09/17 06/10/17 06/10/17 Range/Units 09:03 08:29 10:14 WBC (3.8-10.6) k/uL RBC (4.30-5.90) m/uL Hgb (13.0-17.5) gm/dL Hct (39.0-53.0) % MCHC (31.0-37.0) g/dL Plt Count (150-450) k/uL Neutrophils # (1.3-7.7) k/uL Neutrophils # (Manual) (1.3-7.7) k/uL Lymphocytes # (1.0-4.8) k/uL PT (9.0-12.0) sec INR (<1.2) APTT (22.0-30.0) sec ABG pH 7.47 H (7.35-7.45) ABG pCO2 59 H (35-45) mmHg ABG pO2 >420 H 113 H (83-108) mmHg ABG HCO3 32 H 33 H (21-25) mmol/L ABG Total CO2 34 H 35 H (19-24) mmol/L ABG O2 Saturation 98.4 H 97.7 H (94-97) % ABG Hematocrit 32 L 30 L (34.0-46.0) % ABG Potassium (3.4-4.5) mmol/L ABG Ionized Calcium (4.5-5.3) mg/dL ABG Glucose 114 H (75-99) mg/dL Hemoglobin 10.3 L 9.9 L (13.0-17.5) gm/dL Chloride (98-107) mmol/L BUN (9-20) mg/dL POC Glucose (mg/dL) (75-99) mg/dL Calcium (8.4-10.2) mg/dL Magnesium (1.6-2.3) mg/dL Alkaline Phosphatase (38-126) U/L Total Protein (6.3-8.2) g/dL Albumin (3.5-5.0) g/dL Arterial Blood Potassium (3.4-4.5) mmol/L Arterial Blood Glucose 114 H (75-99) mg/dL Crossmatch See Detail 06/10/17 06/10/17 06/10/17 Range/Units 10:51 11:29 12:02 WBC (3.8-10.6) k/uL RBC (4.30-5.90) m/uL Hgb (13.0-17.5) gm/dL Hct (39.0-53.0) % MCHC (31.0-37.0) g/dL Plt Count (150-450) k/uL Neutrophils # (1.3-7.7) k/uL Neutrophils # (Manual) (1.3-7.7) k/uL Lymphocytes # (1.0-4.8) k/uL PT (9.0-12.0) sec INR (<1.2) APTT (22.0-30.0) sec ABG pH (7.35-7.45) ABG pCO2 47 H 50 H (35-45) mmHg ABG pO2 377 H 288 H 252 H (83-108) mmHg ABG HCO3 29 H 30 H 30 H (21-25) mmol/L ABG Total CO2 30 H 31 H 32 H (19-24) mmol/L ABG O2 Saturation 99.7 H 98.6 H 99.5 H (94-97) % ABG Hematocrit 25 L 26 L 25 L (34.0-46.0) % ABG Potassium (3.4-4.5) mmol/L ABG Ionized Calcium 4.0 L 4.4 L 4.4 L (4.5-5.3) mg/dL ABG Glucose 100 H 122 H 141 H (75-99) mg/dL Hemoglobin 8.2 L 8.6 L 8.1 L (13.0-17.5) gm/dL Chloride (98-107) mmol/L BUN (9-20) mg/dL POC Glucose (mg/dL) (75-99) mg/dL Calcium (8.4-10.2) mg/dL Magnesium (1.6-2.3) mg/dL Alkaline Phosphatase (38-126) U/L Total Protein (6.3-8.2) g/dL Albumin (3.5-5.0) g/dL Arterial Blood Potassium (3.4-4.5) mmol/L Arterial Blood Glucose 100 H 122 H 141 H (75-99) mg/dL Crossmatch 06/10/17 06/10/17 06/10/17 Range/Units 12:38 14:12 15:35 WBC 11.0 H (3.8-10.6) k/uL RBC 2.56 L (4.30-5.90) m/uL Hgb 7.1 L D (13.0-17.5) gm/dL Hct 22.9 L (39.0-53.0) % MCHC (31.0-37.0) g/dL Plt Count 138 L (150-450) k/uL Neutrophils # 10.2 H (1.3-7.7) k/uL Neutrophils # (Manual) (1.3-7.7) k/uL Lymphocytes # 0.5 L (1.0-4.8) k/uL PT (9.0-12.0) sec INR (<1.2) APTT (22.0-30.0) sec ABG pH (7.35-7.45) ABG pCO2 46 H (35-45) mmHg ABG pO2 297 H 127 H (83-108) mmHg ABG HCO3 29 H 26 H (21-25) mmol/L ABG Total CO2 30 H 28 H (19-24) mmol/L ABG O2 Saturation 99.7 H 98.5 H (94-97) % ABG Hematocrit 26 L 24 L (34.0-46.0) % ABG Potassium 4.7 H (3.4-4.5) mmol/L ABG Ionized Calcium 4.3 L 4.2 L (4.5-5.3) mg/dL ABG Glucose 143 H 119 H (75-99) mg/dL Hemoglobin 8.3 L 7.9 L (13.0-17.5) gm/dL Chloride (98-107) mmol/L BUN (9-20) mg/dL POC Glucose (mg/dL) (75-99) mg/dL Calcium (8.4-10.2) mg/dL Magnesium (1.6-2.3) mg/dL Alkaline Phosphatase (38-126) U/L Total Protein (6.3-8.2) g/dL Albumin (3.5-5.0) g/dL Arterial Blood Potassium 4.7 H (3.4-4.5) mmol/L Arterial Blood Glucose 143 H 119 H (75-99) mg/dL Crossmatch 06/10/17 06/10/17 06/10/17 Range/Units 15:35 15:35 15:38 WBC (3.8-10.6) k/uL RBC (4.30-5.90) m/uL Hgb (13.0-17.5) gm/dL Hct (39.0-53.0) % MCHC (31.0-37.0) g/dL Plt Count (150-450) k/uL Neutrophils # (1.3-7.7) k/uL Neutrophils # (Manual) (1.3-7.7) k/uL Lymphocytes # (1.0-4.8) k/uL PT 14.1 H (9.0-12.0) sec INR 1.5 H (<1.2) APTT 40.6 H (22.0-30.0) sec ABG pH (7.35-7.45) ABG pCO2 (35-45) mmHg ABG pO2 (83-108) mmHg ABG HCO3 (21-25) mmol/L ABG Total CO2 (19-24) mmol/L ABG O2 Saturation (94-97) % ABG Hematocrit (34.0-46.0) % ABG Potassium (3.4-4.5) mmol/L ABG Ionized Calcium (4.5-5.3) mg/dL ABG Glucose (75-99) mg/dL Hemoglobin (13.0-17.5) gm/dL Chloride 110 H (98-107) mmol/L BUN 21 H (9-20) mg/dL POC Glucose (mg/dL) 113 H (75-99) mg/dL Calcium 7.4 L (8.4-10.2) mg/dL Magnesium 3.9 H (1.6-2.3) mg/dL Alkaline Phosphatase 30 L (38-126) U/L Total Protein 4.5 L (6.3-8.2) g/dL Albumin 3.1 L (3.5-5.0) g/dL Arterial Blood Potassium (3.4-4.5) mmol/L Arterial Blood Glucose (75-99) mg/dL Crossmatch 06/10/17 06/10/17 06/10/17 Range/Units 15:58 16:00 16:20 WBC (3.8-10.6) k/uL RBC 2.48 L (4.30-5.90) m/uL Hgb 6.9 L* (13.0-17.5) gm/dL Hct 22.3 L (39.0-53.0) % MCHC 30.7 L (31.0-37.0) g/dL Plt Count 129 L (150-450) k/uL Neutrophils # (1.3-7.7) k/uL Neutrophils # (Manual) 7.90 H (1.3-7.7) k/uL Lymphocytes # (1.0-4.8) k/uL PT (9.0-12.0) sec INR (<1.2) APTT (22.0-30.0) sec ABG pH 7.30 L (7.35-7.45) ABG pCO2 53 H (35-45) mmHg ABG pO2 >400 H (83-108) mmHg ABG HCO3 26 H (21-25) mmol/L ABG Total CO2 28 H (19-24) mmol/L ABG O2 Saturation 99.4 H (94-97) % ABG Hematocrit (34.0-46.0) % ABG Potassium (3.4-4.5) mmol/L ABG Ionized Calcium (4.5-5.3) mg/dL ABG Glucose (75-99) mg/dL Hemoglobin (13.0-17.5) gm/dL Chloride (98-107) mmol/L BUN (9-20) mg/dL POC Glucose (mg/dL) 105 H (75-99) mg/dL Calcium (8.4-10.2) mg/dL Magnesium (1.6-2.3) mg/dL Alkaline Phosphatase (38-126) U/L Total Protein (6.3-8.2) g/dL Albumin (3.5-5.0) g/dL Arterial Blood Potassium (3.4-4.5) mmol/L Arterial Blood Glucose (75-99) mg/dL Crossmatch Assessment and Plan (1) CAD (coronary artery disease) Narrative/Plan: * Status post four-vessel CABG with left internal mammary artery graft to LAD , saphenous grafts to obtuse marginal , high diagonal , right coronary arteries postop day #0 * CT surgery Dr. Davila et al following Current Visit: Yes Status: Acute Code(s): I25.10 - ATHSCL HEART DISEASE OF [place] CORONARY ARTERY W/O ANG PCTRS SNOMED Code(s): 20674283 (2) On mechanically assisted ventilation Narrative/Plan: * Patient will mechanically intubated current settings n tidal volume of 500, IMV rate of 12, PEEP of 8, and FiO2 of 100% * Pulmonary Dr. Harmon or following Current Visit: Yes Status: Acute Code(s): Z99.11 - DEPENDENCE ON RESPIRATOR [VENTILATOR] STATUS SNOMED Code(s): 687232483 (3) Valvular heart disease Narrative/Plan: * Status status post mitral valve annuloplasty with Physio ring placement * Postop RUT indicating resolution of his mitral regurgitation Current Visit: Yes Status: Acute Code(s): I38 - ENDOCARDITIS, VALVE UNSPECIFIED SNOMED Code(s): 315919 (4) Postoperative anemia due to acute blood loss Narrative/Plan: * Hemoglobin down to 6.9 approximately 5 g drop in hemoglobin * Patient scheduled to have 2 units of FFP unit of platelets and 2 units of packed RBCs * continue to monitor his hemoglobin closely * Current Visit: Yes Status: Acute Code(s): D62 - ACUTE POSTHEMORRHAGIC ANEMIA SNOMED Code(s): 43469759698002368 (5) Atrial fibrillation with rapid ventricular response Narrative/Plan: * Currently in normal sinus rhythm * Continue with amiodarone drip and metoprolol * Echocardiogram revealing severe systolic dysfunction with EF of 25-30%, with a severely dilated left atrium Current Visit: Yes Status: Resolved Code(s): I48.91 - UNSPECIFIED ATRIAL FIBRILLATION SNOMED Code(s): 371906302270501 (6) Systolic CHF, acute Narrative/Plan: * Severe cardiomyopathy EF of 20% on RUT * Continue with diuresis with Lasix, continue with beta billy therapy, low- dose DORIE inhibitor and Aldactone Current Visit: Yes Status: Acute Code(s): I50.21 - ACUTE SYSTOLIC ( CONGESTIVE) HEART FAILURE SNOMED Code(s): 503313721 (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
[2017-06-10 17:49] LABS: Glucose,Whole Blood 184 mg/dL (75-99)
[2017-06-10] MEDS: ACETAMINOPHEN IV (For NPO) 1,000 MG in EMPTY BAG 1 BAG IVPB SCH ×2 (18:08→23:52)
[2017-06-10 18:15] LABS: Glucose,Whole Blood 243 mg/dL (75-99)
--- NOTE | 2017-06-10 18:24 | PN ---
PROGRESS NOTE Mr. Alonso is a 71-year-old male who presented with symptoms of progressive dyspnea and had findings consistent with severe impairment of left ventricular systolic function. He subsequently underwent a workup that showed coronary artery disease in the left main and the right coronary artery and significant mitral regurgitation. He underwent coronary artery bypass grafting with RADER to LAD, saphenous vein graft to the diagonal, OM and right coronary artery as well as mitral valve annuloplasty with a 26 mm Physio ring. He is intubated and sedated in the ICU. He is on no pressors. He is paced. Underlying rhythm is complete asystole. PHYSICAL EXAMINATION: Blood pressure in the 120s with a heart rate in the 60s. LUNGS: Clear anteriorly. HEART: Regular rate and rhythm. S1, S2 with rub. No gallop. ABDOMEN: Soft. Hypoactive bowel sounds. EXTREMITIES: Haim wrapping in place. LAB DATA: Hemoglobin 6.9. He has significant drainage of bleeding through the chest tube. IMPRESSION: 1. Status post coronary artery bypass grafting and mitral valve repair. 2. Paroxysmal atrial fibrillation. 3. Severe cardiomyopathy and mitral regurgitation. RECOMMENDATION: Will continue supportive care at this point. I am hopeful he will wean and extubate soon. Will follow his rhythm and depending on his rhythm, further recommendation will be made. MMODL / IJN: [id number] /
[2017-06-10 19:00] LABS: Glucose,Whole Blood 199 mg/dL (75-99)
[2017-06-10 19:14] LABS: Basophils % (A) 0 %; Eosinophils % (A) 0 %; HCT 22.5 % (39.0-53.0); HGB 7.1 gm/dL (13.0-17.5); Hypochromasia Moderate; Lymphocytes # (A) 0.3 k/uL (1.0-4.8); Lymphocytes % (A) 3 %; MCH 28.2 pg (25.0-35.0); MCHC 31.5 g/dL (31.0-37.0); MCV 89.5 fL (80.0-100.0); Mean Platelet Volume 9.8; Monocytes # (A) 0.2 k/uL (0-1.0); Monocytes % (A) 2 %; Neutrophils # (A) 7.8 k/uL (1.3-7.7); Neutrophils % (A) 94 %; Platelet Count 130 k/uL (150-450); RBC 2.52 m/uL (4.30-5.90); RDW 14.2 % (11.5-15.5); WBC 8.2 k/uL (3.8-10.6)
[2017-06-10 19:25] LABS: ALT 26 U/L (21-72); AST 47 U/L (17-59); Albumin 3.6 g/dL (3.5-5.0); Alkaline Phosphatase 41 U/L (38-126); Anion Gap 13 mmol/L; Blood Urea Nitrogen 20 mg/dL (9-20); Calcium 7.2 mg/dL (8.4-10.2); Carbon Dioxide 25 mmol/L (22-30); Chloride 105 mmol/L (98-107); Glucose 174 mg/dL (74-99); Magnesium 3.4 mg/dL (1.6-2.3); Potassium 4.8 mmol/L (3.5-5.1); Sodium 143 mmol/L (137-145); Total Bilirubin 1.4 mg/dL (0.2-1.3)
[2017-06-10 19:31] LABS: INR 1.3 (<1.2); Partial Thromboplastin Time 41.1 sec (22.0-30.0); Prothrombin Time 12.3 sec (9.0-12.0)
[2017-06-10 20:28] LABS: ABG Base Excess 1.1 mmol/L; ABG HCO3 27 mmol/L (21-25); ABG Oxygen Saturation 99.8 % (94-97); ABG PCO2 47 mmHg (35-45); ABG PH 7.36 (7.35-7.45); ABG Potassium Whole Blood 4.7 mmol/L (3.4-4.5); ABG Sodium Whole Blood 142 mmol/L (135-146); ABG TCO2 28 mmol/L (19-24)
[2017-06-10 21:04] LABS: ABG HCO3 25 mmol/L (21-25); ABG Oxygen Saturation 99.5 % (94-97); ABG PCO2 46 mmHg (35-45); ABG PH 7.34 (7.35-7.45); ABG PO2 197 mmHg (83-108); ABG Potassium Whole Blood 4.5 mmol/L (3.4-4.5); ABG Sodium Whole Blood 143 mmol/L (135-146); ABG TCO2 26 mmol/L (19-24)
[2017-06-10 21:14] LABS: ABG PO2 >420 mmHg (83-108)
[2017-06-10 21:28] LABS: ABG Base Excess -1.1 mmol/L; ABG HCO3 24 mmol/L (21-25); ABG Oxygen Saturation 99.6 % (94-97); ABG PCO2 43 mmHg (35-45); ABG PH 7.36 (7.35-7.45); ABG PO2 193 mmHg (83-108); ABG Potassium Whole Blood 4.6 mmol/L (3.4-4.5); ABG Sodium Whole Blood 143 mmol/L (135-146); ABG TCO2 26 mmol/L (19-24)
--- NOTE | 2017-06-10 21:38 | P.OP ---
Date of Procedure: 06/10/17 Preoperative Diagnosis: Postoperative hemorrhage Postoperative Diagnosis: Same Procedure(s) Performed: Sternal reexploration for bleeding Anesthesia: JENNIFER Surgeon: Reinaldo Davila Last Ironer #1: Bebeto Hagen Last Ironer #2: Ritesh Monet Estimated Blood Loss (ml): 100 IV fluids (ml): 1,000 Urine output (ml): 100 Pathology: none sent Condition: stable Disposition: ICU Indications for Procedure: Patient is several hours status post mitral valve repair and coronary bypass grafting with modified Schuler maze procedure. Despite being dry at the time of closure, the patient had increasing drainage from the chest tubes of the for several hours after surgery. This was despite administration of both blood and blood products. For this reason it was decided to return the patient to the OR for exploration. Operative Findings: There was mild diffuse oozing throughout the mediastinum. Was also oozing from the sternum and chest wall. There is no active bleeding. There was some retained blood clot both within the mediastinum and left pleural space. Description of Procedure: Patient was returned to the operating room and placed supine on the operating table. The anterior chest was sterilely prepped and draped. Midline incision was reopened. Sternal wires were cut and the sternum was spread. There was some clot present in the mediastinum and this was carefully debrided. Complete and careful exploration of the mediastinum and bilateral chest cavities was performed. There was retained thrombus in the left pleural space as well as in the mediastinum. There was also some thrombus on the undersurface of the sternum bilaterally. There was no active bleeding. There were some areas of oozing. The worst appeared to be on the left chest wall far posteriorly and inferiorly. These scattered areas were treated with electrocautery. We carefully explored the entire surgical site and could find no active bleeding. Once all the thrombus had been removed, chest was irrigated with warm antibiotic solution. The ribs were reapproximated with sternal wires. The fascia was reclosed with 0 Ethibond suture. Subcutaneous and subcuticular layers were reclosed with layers of Vicryl suture. Pleur-evacs were changed and the patient was transferred back to ICU in stable condition.
[2017-06-10] MEDS: DOPamine DRIP 800 MG in DEXTROSE/WATER 1 500ML.BAG IV SCH (22:06)
[2017-06-10 22:19] LABS: Glucose,Whole Blood 124 mg/dL (75-99)
[2017-06-10 22:24] LABS: HCT 24.2 % (39.0-53.0); HGB 7.8 gm/dL (13.0-17.5); Hypochromasia Slight; MCH 28.7 pg (25.0-35.0); MCHC 32.2 g/dL (31.0-37.0); Mean Platelet Volume 8.2; Platelet Count 135 k/uL (150-450); Poikilocytosis Slight; RBC 2.72 m/uL (4.30-5.90); RDW 13.9 % (11.5-15.5); WBC 10.6 k/uL (3.8-10.6)
[2017-06-10 22:29] LABS: Ionized Calcium 4.7 mg/dL (4.5-5.3)
[2017-06-10 22:30] LABS: INR 1.3 (<1.2); Prothrombin Time 12.4 sec (9.0-12.0)
--- NOTE | 2017-06-10 22:30 | XR ---
EXAMINATION TYPE: XR chest 1V portable DATE OF EXAM: 06/10/2017 COMPARISON: Today HISTORY: Postop open heart TECHNIQUE: Single frontal view of the chest is obtained. FINDINGS: Heart is enlarged. There is some pulmonary vascular congestion. There are bilateral chest tubes. There is right jugular catheter with the tip in the pulmonary artery. Endotracheal tube appear s in good position. There is no pneumothorax. IMPRESSION: Mild congestive heart failure. No significant change compared to exam earlier today. The re is some probable stable infiltrate at the left lung base.
[2017-06-10 22:40] LABS: ALT 22 U/L (21-72); AST 55 U/L (17-59); Albumin 3.5 g/dL (3.5-5.0); Alkaline Phosphatase 46 U/L (38-126); Anion Gap 9 mmol/L; Blood Urea Nitrogen 20 mg/dL (9-20); Calcium 7.8 mg/dL (8.4-10.2); Carbon Dioxide 26 mmol/L (22-30); Chloride 108 mmol/L (98-107); Glucose 114 mg/dL (74-99); Magnesium 3.1 mg/dL (1.6-2.3); Phosphorus 3.5 mg/dL (2.5-4.5); Potassium 4.5 mmol/L (3.5-5.1); Sodium 143 mmol/L (137-145); Total Bilirubin 1.9 mg/dL (0.2-1.3); Total Protein 4.9 g/dL (6.3-8.2)
[2017-06-10 23:07] LABS: Glucose,Whole Blood 109 mg/dL (75-99)
[2017-06-10] MEDS: CHLORHEXIDINE GLUCONATE 15 ML CUP MUCOUS MEM SCH (23:53)
[2017-06-10] MEDS: HEPARIN SODIUM,PORCINE 5,000 UNIT/ML 1 ML VIAL SQ SCH (23:53)
[2017-06-11 00:10] LABS: Glucose,Whole Blood 107 mg/dL (75-99)
[2017-06-11] MEDS: ceFAZolin IN SWFI 2 GM/20 ML SYRINGE IVP SCH ×2 (00:24→08:57)
[2017-06-11 01:21] LABS: Glucose,Whole Blood 124 mg/dL (75-99)
[2017-06-11 01:34] LABS: Basophils % (A) 0 %; Eosinophils % (A) 0 %; HCT 26.9 % (39.0-53.0); HGB 8.4 gm/dL (13.0-17.5); Hypochromasia Slight; Lymphocytes # (A) 0.2 k/uL (1.0-4.8); Lymphocytes % (A) 2 %; MCH 27.7 pg (25.0-35.0); MCHC 31.4 g/dL (31.0-37.0); MCV 88.2 fL (80.0-100.0); Mean Platelet Volume 8.4; Monocytes # (A) 0.4 k/uL (0-1.0); Monocytes % (A) 3 %; Neutrophils # (A) 13.7 k/uL (1.3-7.7); Neutrophils % (A) 95 %; Platelet Count 182 k/uL (150-450); Poikilocytosis Slight; RBC 3.04 m/uL (4.30-5.90); RDW 14.4 % (11.5-15.5); WBC 14.4 k/uL (3.8-10.6)
[2017-06-11 02:16] LABS: Glucose,Whole Blood 129 mg/dL (75-99)
[2017-06-11 02:41] LABS: ABG Base Excess 0.1 mmol/L; ABG HCO3 26 mmol/L (21-25); ABG Oxygen Saturation 90.7 % (94-97); ABG PCO2 45 mmHg (35-45); ABG PH 7.36 (7.35-7.45); ABG PO2 58 mmHg (83-108); ABG TCO2 27 mmol/L (19-24)
[2017-06-11] MEDS: IPRATROPIUM-ALBUTEROL 3 ML NEB INHALATION SCH ×6 (03:09→19:57)
[2017-06-11 03:17] LABS: Glucose,Whole Blood 128 mg/dL (75-99)
[2017-06-11 04:03] LABS: Glucose,Whole Blood 117 mg/dL (75-99)
[2017-06-11 04:23] LABS: Basophils % (A) 0 %; Eosinophils % (A) 0 %; HCT 24.4 % (39.0-53.0); Hypochromasia Slight; Lymphocytes # (A) 0.2 k/uL (1.0-4.8); Lymphocytes % (A) 2 %; MCH 28.6 pg (25.0-35.0); MCHC 32.6 g/dL (31.0-37.0); MCV 87.8 fL (80.0-100.0); Mean Platelet Volume 7.1; Monocytes # (A) 0.4 k/uL (0-1.0); Monocytes % (A) 3 %; Neutrophils # (A) 11.9 k/uL (1.3-7.7); Neutrophils % (A) 94 %; Platelet Count 166 k/uL (150-450); Poikilocytosis Slight; RBC 2.78 m/uL (4.30-5.90); RDW 14.4 % (11.5-15.5); WBC 12.6 k/uL (3.8-10.6)
[2017-06-11 04:30] LABS: INR 1.3 (<1.2); Partial Thromboplastin Time 29.9 sec (22.0-30.0); Prothrombin Time 12.2 sec (9.0-12.0)
[2017-06-11 04:35] LABS: Ionized Calcium 4.7 mg/dL (4.5-5.3)
[2017-06-11 04:43] LABS: ALT 26 U/L (21-72); AST 65 U/L (17-59); Albumin 3.6 g/dL (3.5-5.0); Alkaline Phosphatase 41 U/L (38-126); Anion Gap 10 mmol/L; Blood Urea Nitrogen 21 mg/dL (9-20); Calcium 7.7 mg/dL (8.4-10.2); Carbon Dioxide 27 mmol/L (22-30); Chloride 109 mmol/L (98-107); Glucose 110 mg/dL (74-99); Magnesium 2.9 mg/dL (1.6-2.3); Phosphorus 3.6 mg/dL (2.5-4.5); Potassium 4.7 mmol/L (3.5-5.1); Sodium 146 mmol/L (137-145); Total Bilirubin 1.3 mg/dL (0.2-1.3)
[2017-06-11 05:10] LABS: Glucose,Whole Blood 110 mg/dL (75-99)
[2017-06-11] MEDS: ACETAMINOPHEN IV (For NPO) 1,000 MG in EMPTY BAG 1 BAG IVPB SCH ×3 (06:05→17:15)
[2017-06-11 06:14] LABS: Glucose,Whole Blood 119 mg/dL (75-99)
[2017-06-11] MEDS: CLEVIDIPINE BUTYRATE 25 MG in EMPTY BAG 1 BAG IV SCH (06:14)
[2017-06-11 06:57] LABS: Glucose,Whole Blood 126 mg/dL (75-99)
--- NOTE | 2017-06-11 07:36 | XR ---
EXAMINATION TYPE: XR chest 1V portable DATE OF EXAM: 06/11/2017 COMPARISON: Prior chest x-ray 06/10/2017 HISTORY: Postop cardiac surgery, intubated TECHNIQUE: Single frontal view of the chest is obtained. FINDINGS: Endotracheal tube, NG tube, right and left chest tubes, median sternal drains, post cardia c valve replacement, median sternotomy changes, right jugular central venous sheath and coaxial [place]- Dannie catheter are noted. No evident pneumothorax. Interstitium is increased. Heart remains enlarged. No sizable effusion. There are overlying cardiac leads. Subcutaneous emphysema noted over the neck re gion as on prior. IMPRESSION: There may be a component of volume overload, pulmonary venous hypertension and interstit ial edema.
[2017-06-11 07:44] LABS: ABG Base Excess 1.1 mmol/L; ABG HCO3 26 mmol/L (21-25); ABG Oxygen Saturation 96.8 % (94-97); ABG PCO2 41 mmHg (35-45); ABG PH 7.41 (7.35-7.45); ABG PO2 80 mmHg (83-108); ABG TCO2 27 mmol/L (19-24)
[2017-06-11 08:02] LABS: Glucose,Whole Blood 135 mg/dL (75-99)
[2017-06-11] MEDS: PANTOPRAZOLE 40 MG TABLET PO SCH (08:26)
[2017-06-11] MEDS: AMIODARONE 200 MG TAB PO SCH (08:26)
[2017-06-11] MEDS: METOPROLOL TARTRATE 25 MG TAB PO SCH (08:27)
[2017-06-11] MEDS: SPIRONOLACTONE 25 MG TAB PO SCH (08:27)
[2017-06-11] MEDS: BALSALAZIDE DISODIUM 750 MG CAPSULE PO SCH (08:27)
[2017-06-11] MEDS: ASPIRIN 81 MG PO SCH (08:27)
[2017-06-11] MEDS: DOXAZOSIN 4 MG TAB PO SCH (08:27)
[2017-06-11] MEDS: LISINOPRIL 10 MG TAB PO SCH (08:27)
[2017-06-11] MEDS: AMOXIC-POT CLAV 500-125 MG 1 EACH TAB PO SCH (08:27)
[2017-06-11] MEDS: FUROSEMIDE 20 MG TAB PO SCH (08:27)
[2017-06-11] MEDS: predniSONE 20 MG TAB PO SCH (08:27)
[2017-06-11] MEDS: CHOLECALCIFEROL 1,000 UNIT TAB PO SCH (08:27)
[2017-06-11] MEDS: CYANOCOBALAMIN 500 MCG TAB PO SCH (08:28)
[2017-06-11] MEDS: MULTIVITAMINS, THERA 1 EACH TAB PO SCH (08:28)
[2017-06-11] MEDS: CHLORHEXIDINE GLUCONATE 15 ML CUP MUCOUS MEM SCH ×2 (08:30→21:21)
[2017-06-11] MEDS: HEPARIN SODIUM,PORCINE 5,000 UNIT/ML 1 ML VIAL SQ SCH ×3 (08:30→23:16)
[2017-06-11] MEDS: ASPIRIN 325 MG TAB PO SCH (08:30)
[2017-06-11] MEDS: PANTOPRAZOLE 40 MG/10 ML VIAL IVP SCH (08:31)
[2017-06-11] MEDS: ATORVASTATIN 40 MG TAB PO SCH (08:31)
[2017-06-11] MEDS ORDERED: CLOPIDOGREL 75 MG TAB PO SCH (09:00)
[2017-06-11 09:08] LABS: Glucose,Whole Blood 129 mg/dL (75-99)
--- NOTE | 2017-06-11 09:39 | PN ---
PROGRESS NOTE Mr. Alonso is a 71-year-old male who underwent coronary artery bypass grafting, mitral valve repair. He has had to be taken back to the OR last night because of bleeding. He is stable, awake, alert, following commands. Remains intubated in the process of weaning. He is paced. His urine output has been stable. There is no evidence of significant ventricular ectopic activity and no evidence of atrial fibrillation. He continues to be at this time on metoprolol tartrate 12.5 mg twice a day, aspirin, he is on low-dose dopamine, he is on Lipitor. PHYSICAL EXAMINATION: Blood pressure 111/40 with the heart rate in the 60s. LUNGS: With decreased breath sounds at the bases. HEART: Regular rate and rhythm. S1, S2. No S3. No rub appreciated. ABDOMEN: Soft. Positive bowel sounds. No organomegaly. EXTREMITIES: No significant edema. Chest x-ray is consistent with congestion. IMPRESSION: 1. Status post coronary artery bypass grafting and mitral valve repair in a patient with a history of cardiomyopathy and paroxysmal atrial fibrillation. 2. Bleeding post surgically, stable at this time. 3. Hyperlipidemia. RECOMMENDATION: I am hopeful that we will extubate the patient today. I will re-initiate treatment with anticoagulation once it is agreeable with the surgeon because of the prior episode of atrial fibrillation presurgically. He may benefit from amiodarone early on. Depending on his progress, further recommendation will be made. MICHAEL / KALPANA: [id number] /
[2017-06-11 09:49] LABS: Glucose,Whole Blood 148 mg/dL (75-99)
[2017-06-11] MEDS: METOPROLOL TARTRATE 12.5 MG TAB PO SCH ×2 (10:20→21:21)
[2017-06-11 11:21] LABS: Glucose,Whole Blood 111 mg/dL (75-99)
--- NOTE | 2017-06-11 11:35 | P.PN ---
Subjective Progress Note Date: 06/11/17 Principal diagnosis: Severe mitral regurgitation and cardiomyopathy with LV dysfunction, moderate pulmonary hypertension, and coronary artery disease This is a very pleasant 71-year-old gentleman who follows with Dr. Mauricio Keith as his primary care physician. He has history of Crohn's disease, nephrolithiasis status post lithotripsy him a BPH, hypertension, tinnitus. He has has a history of previous tobacco dependence and suspected COPD. He has not been seen by a oil scout in the past. He had been having ongoing issues with shortness of breath, yellow productive sputum. He had been treated for bronchitis 2 with antibiotics and steroids. Never quite back to his baseline. He did have a fever of 102.4. He presented to the emergency room at [facility] with increasing shortness of breath, cough, congestion palpitations. He was found to be in atrial fibrillation with a rapid ventricular response and was subsequently transferred here to [facility] yesterday morning. His chest x-ray did reveal evidence of fluid volume overload and congestive heart failure. An echocardiogram revealed severely impaired left ventricular systolic function with ejection fraction 25-30%. There is also noted severe global hypokinesia. He has moderate to severe mitral regurgitation. Moderate to severe tricuspid regurgitation. Moderate pulmonary hypertension with an RVSP of 57.96 mmHg. ProBNP 6190. Creatinine 1.20. He has been initiated on Lasix 20 mg IV push every 12 hours. He is seen today in consultation on the selective care unit. He is currently sitting up in a chair at the bedside. He is awake and alert in no acute distress. He is breathing easier today as compared to yesterday. He is maintaining good O2 saturations in the 90s on room air. He has since converted back to normal sinus rhythm. He is afebrile. No fever chills or night sweats. No productive cough. The cultures reveal no growth to date. He has been initiated on Xarelto. He is also on bronchodilators, IV Solu-Medrol and antibiotics in the form of Augmentin. The patient is seen again today 06/03/2017 in follow-up on the selective care unit. He is currently resting comfortably in bed. He did undergo cardiac catheterization this morning. Report is pending. Further interventions are being discussed. He denies any shortness of breath currently. No chest pain or palpitations. He is currently maintaining good O2 saturations in the 90s on room air. He is hemodynamically stable. Blood and sputum cultures reveal no growth to date. White count 9.7. Hemoglobin 10.9. Creatinine 1.41. He is currently on bronchodilators, IV Solu-Medrol, Augmentin. Xarelto currently on hold. On 06/04/2017 patient seen in follow-up on selective care unit. Patient underwent cardiac catheterization on 06/03/2017 was found to have moderate disease in the distal left main and the mid RCA and moderate disease in the proximal left circumflex. In the plan is to treat him medically for his coronary artery disease. Yesterday in the afternoon patient back into atrial fibrillation with RVR, started on Cardizem drip, and currently his rate is ranging anywhere from 80-110 BPM. Patient had an episode of acute respiratory distress this morning, she was tachypneic, coughing, and was given 40 mg of IV Lasix for what appeared to be acute pulmonary edema. Chest x-ray was obtained, and showed pulmonary venous hypertension, and interstitial edema. Patient was placed on 100% nonrebreather, once releasing his FiO2 was weaned back down, and currently the patient is on 3 L per nasal cannula with O2 sat 94%. She remains on oral prednisone, Xarelto for anticoagulation. Responded well to IV diuretics. On 06/05/2088 seeing Cb for a follow-up. Obviously the patient is less short of breath compared to yesterday. Note that the patient went into an acute pulmonary edema yesterday and he became acutely short of breath. He responded nicely to diuretics. He is going to have a RUT to evaluate the mitral valve regurgitation today and its severity. The patient is still in atrial fibrillation. Rate is under better control and the patient is currently off the Cardizem drip. He has having no chest pain. No nausea. No vomiting. No cough or sputum production. Cardiology is on the case and the patient is currently anticoagulated with Xarelto. He is also on metoprolol 25 mg by mouth twice a day and amiodarone 400 mg by mouth twice a day and the patient is also on a combination of Lasix and Aldactone. The patient is also completing a course of Augmentin and a prednisone burst taper regarding acute bronchitis/ COPD exacerbation. For now the plan is to proceed with cardiac evaluation with RUT. On 06/06/2017, I'm seeing this patient for a follow-up. Overall poor status is stable and the patient is less short of breath compared to yesterday. He is still being investigated regarding his valvular disease knowing that he has severe mitral regurgitation and he may be a potentially candidate for mitral valve repair. History nature fibrillation at the rate is controlled. He is on anticoagulation for now and he is on Xarelto. No chest pain. No angina. No nausea. No vomiting. No swelling in lower extremities. On and off is still coughing and he is being treated with a prednisone burst taper regarding his COPD exacerbation is also on a course of Augmentin. The patient was seen by Dr. Reinaldo Davila. He is on Lasix 40 mg IV every 12 hours. He is also on Aldactone 25 minutes by mouth daily. No other significant events over the past 24 hours. He is also on amiodarone 400 mg by mouth twice a day in addition to his beta billy 25 mg of metoprolol twice a day. On 06/07/2017, the patient is feeling much better. He is off oxygen. His emanating. A bedside spirometry was done and his FEV1 is normal to 58% of predicted consistent with COPD yet this can be and also a underestimation of the lung capacity knowing that the patient was in CHF and had lateral pleural effusions. In any rate his cardiac rhythm is back to sinus. He is having paroxysmal atrial fibrillation and this morning he was noted to be in sinus rhythm. No chest pain. No major swelling lower extremities. No altered mentation. He is completing a prednisone burst taper regarding his COPD exacerbation. I elected discussion about this case with cardiology and cardiothoracic surgery. The patient will need surgery knowing that he has severe mitral regurgitation. The images were reviewed by the surgeon. The consensus is that the patient will need an intra-aortic balloon pump placed to optimize his postoperative recovery. If surgery is being contemplated, this will be done probably on Thursday with insertion of intra-aortic balloon pump. The patient otherwise is doing well. He is on oral Lasix. Is on Zestril. Is on Lopressor. He is on a prednisone burst taper. No fever or chills. No other complaints otherwise for now. Patient was reevaluated today on 06/08/2017, patient is feeling great, asymptomatic, off the oxygen, looking forward for his planned surgery in the next 2 days. Patient apparently has severe mitral regurgitation, and he would require surgical intervention I believe it was scheduled for next one day. CBC was noted to be normal, basic metabolic profile is normal, bicarb is 36. Patient denies any cough wheezing or shortness of breath at present. The patient is seen again today 06/09/2017 in follow-up on the selective care unit. He is currently sitting up in a chair at the bedside. He is feeling quite well today. He denies any worsening shortness of breath, cough or congestion. His been maintaining good O2 saturations in the mid 90s on room air. He's been afebrile. Hemodynamically stable. No chest pain or palpitations. White count 9.4. Hemoglobin 11.9. Creatinine 0.94. Reevaluated today on 06/10/2017, patient underwent mitral valve repair, and four- vessel bypass today. Transferred back to the ICU on mechanical ventilation, and I evaluated the patient postoperatively. His ventilator settings were reviewed, patient is on tidal volume of 500, IMV rate of 12, PEEP of 8, and FiO2 of 100% at this point. ABG is pending. Chest x-ray showed mostly postoperative changes, and proper placement of endotracheal tube and chest tubes. Patient is fully sedated, and mechanically ventilated. Patient was reevaluated today on 06/11/2017, patient was still on mechanical ventilation earlier this morning, he had some weaning parameters earlier this morning that where reasonable but the patient had poor ABG on 40% FiO2. Hence we delayed the extubation until this morning. Upon my evaluation, the patient was noted to be doing well on CPAP, and I gave him a short trial of CPAP and pressure support were and the patient did extremely well with excellent tidal volumes and respiratory rate. Chest x-ray was reviewed and it showed minimal venous congestion, hence I proceeded to extubating the patient. Tolerated the extubation well, and I was still at bedside. CBC was reviewed WBC is 14.4 hemoglobin is 8.4 ABG this morning showed a pO2 of 80 pCO2 of 41 pH of 7.41. Basic metabolic profile was noted to be relatively normal. Renal functioning is normal. Meds were all reviewed. Objective - Vital Signs Vital signs: Vital Signs Temp 97.9 F 06/11/17 04:00 Pulse 54 L 06/11/17 09:00 Resp 15 06/11/17 09:00 BP 94/47 06/10/17 21:48 Pulse Ox 95 04/26/18 09:22 Intake & Output 06/10/17 06/11/17 06/11/17 18:59 06:59 18:59 Intake Total 2584.586 6359.259 786.2 Output Total 5218 4309 390 Balance -2633.414 2050.259 396.2 Weight 89.7 kg Intake: IV 183 1801 733 Albumin Human 5% 250 ml 1050 In Empty Bag 1 bag @ 250 mls/hr IVPB Q1HR PRN Rx#: [id number] C/o injectate 220 100 Lactated Ringers 1,000 ml 150 450 606 @ 50 mls/hr IV .Q20H CHERYL Rx#:[id number] pressure bags 81 27 Intake, IV Titration 10.586 115.259 53.2 Amount Clevidipine Butyrate 25 40.900 21.6 mg In Empty Bag 1 bag @ 1 MG/HR 2 mls/hr IV .Q24H CHERYL Rx#:[id number] Insulin Regular 100 unit 6.133 10.458 In Sodium Chloride 0.9% 100 ml @ Per Protocol IV .Q0M CHERYL Rx#:[id number] Norepinephrin 16 mg-0.9% 4.453 1.719 Ns Pmx 16 mg In 250 ml @ Titrate IV .Q0M CHERYL Rx#: [id number] Propofol 1,000 mg In 62.182 31.6 Empty Bag 1 bag @ Titrate IV .Q0M CHERYL Rx#: [id number] Blood Product 2391 4443 Cryoprecipitate Unit 10 [id number] Cryoprecipitate Unit 10 [id number] Cryoprecipitate Unit 10 [id number] Cryoprecipitate Unit 10 [id number] Cryoprecipitate Unit 10 [id number] Cryoprecipitate Unit 10 [id number] Cryoprecipitate Unit 10 [id number] Cryoprecipitate Unit 10 [id number] Cryoprecipitate Unit 10 [id number] Cryoprecipitate Unit 10 [id number] Ffp 24 Cpd Unit 336 [id number] Ffp 24 Cpd Unit 332 [id number] Ffp 24 Cpd Unit 297 [id number] Ffp 24 Cpd Unit 310 [id number] Platelet Pheresis Acda1 302 Unit [id number] Platelet Pheresis Acda1 306 Unit [id number] Platelet Pheresis Acda2 194 Unit [id number] Rc As-1 Unit 310 [id number] Rc As-1 Unit 310 [id number] Rc As-1 Unit 310 [id number] Rc As-1 Unit 310 [id number] Rc As-1 Unit 310 [id number] Output: Chest Tube Drainage 2270 2238 240 Right/Left Mediastinal 1750 1290 120 Right/Left Pleural Chest 520 948 120 Tube Urine 748 1621 150 Estimated Blood Loss 2200 450 Other: Voiding Method Indwelling Catheter Indwelling Catheter ABP, PAP, CO, CI - Last Documented Arterial Blood Pressure 107/42 Pulmonary Artery Pressure 40/18 Cardiac Output 5 Cardiac Index 2.5 - Exam GENERAL EXAM: Revealed a 71-year-old white male awake for the responsive, follows simple instructions on mechanical ventilation, in no distress.. HEAD: Normocephalic. EYES: Normal reaction of pupils, equal size. NOSE: Clear with pink turbinates. THROAT: Moist mucous membranes. No erythema or exudates. The tracheal tube is intact. Orogastric tube is also intact. NECK: No masses, no JVD. No thyromegaly, endotracheal tube is intact. CHEST: Symmetrical chest expansion bilaterally, chest tubes were noted, good breath sound bilaterally no rhonchi, no wheezes. CVS: Regular rate and rhythm, normal S1 and S2, 2/6 systolic murmur thought the precordium. ABDOMEN: No hepatosplenomegaly, normal bowel sounds, no guarding or rigidity. SPINE: No scoliosis or deformity SKIN: No rashes CENTRAL NERVOUS SYSTEM: Alert oriented, no gross focal neurologic deficit. EXTREMITIES: There is trace peripheral edema. No clubbing, no cyanosis. Both lower extremities are covered with Haim bandage. - Labs CBC & Chem 7: 06/11/17 04:10 06/11/17 04:10 Labs: Abnormal Lab Results - Last 24 Hours (Table) 06/09/17 06/10/17 06/10/17 Range/Units 09:03 10:14 10:51 WBC (3.8-10.6) k/uL RBC (4.30-5.90) m/uL Hgb (13.0-17.5) gm/dL Hct (39.0-53.0) % MCHC (31.0-37.0) g/dL Plt Count (150-450) k/uL Neutrophils # (1.3-7.7) k/uL Neutrophils # (Manual) (1.3-7.7) k/uL Lymphocytes # (1.0-4.8) k/uL PT (9.0-12.0) sec INR (<1.2) APTT (22.0-30.0) sec Fibrinogen (200-500) mg/dL ABG pH (7.35-7.45) ABG pCO2 59 H 47 H (35-45) mmHg ABG pO2 113 H 377 H (83-108) mmHg ABG HCO3 33 H 29 H (21-25) mmol/L ABG Total CO2 35 H 30 H (19-24) mmol/L ABG O2 Saturation 97.7 H 99.7 H (94-97) % ABG Hematocrit 30 L 25 L (34.0-46.0) % ABG Potassium (3.4-4.5) mmol/L ABG Ionized Calcium 4.0 L (4.5-5.3) mg/dL ABG Glucose 114 H 100 H (75-99) mg/dL Hemoglobin 9.9 L 8.2 L (13.0-17.5) gm/dL Sodium (137-145) mmol/L Chloride (98-107) mmol/L BUN (9-20) mg/dL Glucose (74-99) mg/dL POC Glucose (mg/dL) (75-99) mg/dL Calcium (8.4-10.2) mg/dL Magnesium (1.6-2.3) mg/dL Total Bilirubin (0.2-1.3) mg/dL AST (17-59) U/L Alkaline Phosphatase (38-126) U/L Total Protein (6.3-8.2) g/dL Albumin (3.5-5.0) g/dL Arterial Blood Potassium (3.4-4.5) mmol/L Arterial Blood Glucose 114 H 100 H (75-99) mg/dL Urine Protein (Negative) Urine Blood (Negative) Urine RBC (0-5) /hpf Urine WBC (0-5) /hpf Urine WBC Clumps (None) /hpf Urine Bacteria (None) /hpf Urine Mucus (None) /hpf Urine Yeast (Budding) (None) /hpf Crossmatch See Detail 06/10/17 06/10/17 06/10/17 Range/Units 11:29 12:02 12:38 WBC (3.8-10.6) k/uL RBC (4.30-5.90) m/uL Hgb (13.0-17.5) gm/dL Hct (39.0-53.0) % MCHC (31.0-37.0) g/dL Plt Count (150-450) k/uL Neutrophils # (1.3-7.7) k/uL Neutrophils # (Manual) (1.3-7.7) k/uL Lymphocytes # (1.0-4.8) k/uL PT (9.0-12.0) sec INR (<1.2) APTT (22.0-30.0) sec Fibrinogen (200-500) mg/dL ABG pH (7.35-7.45) ABG pCO2 50 H 46 H (35-45) mmHg ABG pO2 288 H 252 H 297 H (83-108) mmHg ABG HCO3 30 H 30 H 29 H (21-25) mmol/L ABG Total CO2 31 H 32 H 30 H (19-24) mmol/L ABG O2 Saturation 98.6 H 99.5 H 99.7 H (94-97) % ABG Hematocrit 26 L 25 L 26 L (34.0-46.0) % ABG Potassium 4.7 H (3.4-4.5) mmol/L ABG Ionized Calcium 4.4 L 4.4 L 4.3 L (4.5-5.3) mg/dL ABG Glucose 122 H 141 H 143 H (75-99) mg/dL Hemoglobin 8.6 L 8.1 L 8.3 L (13.0-17.5) gm/dL Sodium (137-145) mmol/L Chloride (98-107) mmol/L BUN (9-20) mg/dL Glucose (74-99) mg/dL POC Glucose (mg/dL) (75-99) mg/dL Calcium (8.4-10.2) mg/dL Magnesium (1.6-2.3) mg/dL Total Bilirubin (0.2-1.3) mg/dL AST (17-59) U/L Alkaline Phosphatase (38-126) U/L Total Protein (6.3-8.2) g/dL Albumin (3.5-5.0) g/dL Arterial Blood Potassium 4.7 H (3.4-4.5) mmol/L Arterial Blood Glucose 122 H 141 H 143 H (75-99) mg/dL Urine Protein (Negative) Urine Blood (Negative) Urine RBC (0-5) /hpf Urine WBC (0-5) /hpf Urine WBC Clumps (None) /hpf Urine Bacteria (None) /hpf Urine Mucus (None) /hpf Urine Yeast (Budding) (None) /hpf Crossmatch 06/10/17 06/10/17 06/10/17 Range/Units 14:12 15:35 15:35 WBC 11.0 H (3.8-10.6) k/uL RBC 2.56 L (4.30-5.90) m/uL Hgb 7.1 L D (13.0-17.5) gm/dL Hct 22.9 L (39.0-53.0) % MCHC (31.0-37.0) g/dL Plt Count 138 L (150-450) k/uL Neutrophils # 10.2 H (1.3-7.7) k/uL Neutrophils # (Manual) (1.3-7.7) k/uL Lymphocytes # 0.5 L (1.0-4.8) k/uL PT (9.0-12.0) sec INR (<1.2) APTT (22.0-30.0) sec Fibrinogen (200-500) mg/dL ABG pH (7.35-7.45) ABG pCO2 (35-45) mmHg ABG pO2 127 H (83-108) mmHg ABG HCO3 26 H (21-25) mmol/L ABG Total CO2 28 H (19-24) mmol/L ABG O2 Saturation 98.5 H (94-97) % ABG Hematocrit 24 L (34.0-46.0) % ABG Potassium (3.4-4.5) mmol/L ABG Ionized Calcium 4.2 L (4.5-5.3) mg/dL ABG Glucose 119 H (75-99) mg/dL Hemoglobin 7.9 L (13.0-17.5) gm/dL Sodium (137-145) mmol/L Chloride 110 H (98-107) mmol/L BUN 21 H (9-20) mg/dL Glucose (74-99) mg/dL POC Glucose (mg/dL) (75-99) mg/dL Calcium 7.4 L (8.4-10.2) mg/dL Magnesium 3.9 H (1.6-2.3) mg/dL Total Bilirubin (0.2-1.3) mg/dL AST (17-59) U/L Alkaline Phosphatase 30 L (38-126) U/L Total Protein 4.5 L (6.3-8.2) g/dL Albumin 3.1 L (3.5-5.0) g/dL Arterial Blood Potassium (3.4-4.5) mmol/L Arterial Blood Glucose 119 H (75-99) mg/dL Urine Protein (Negative) Urine Blood (Negative) Urine RBC (0-5) /hpf Urine WBC (0-5) /hpf Urine WBC Clumps (None) /hpf Urine Bacteria (None) /hpf Urine Mucus (None) /hpf Urine Yeast (Budding) (None) /hpf Crossmatch 06/10/17 06/10/17 06/10/17 Range/Units 15:35 15:38 15:58 WBC (3.8-10.6) k/uL RBC (4.30-5.90) m/uL Hgb (13.0-17.5) gm/dL Hct (39.0-53.0) % MCHC (31.0-37.0) g/dL Plt Count (150-450) k/uL Neutrophils # (1.3-7.7) k/uL Neutrophils # (Manual) (1.3-7.7) k/uL Lymphocytes # (1.0-4.8) k/uL PT 14.1 H (9.0-12.0) sec INR 1.5 H (<1.2) APTT 40.6 H (22.0-30.0) sec Fibrinogen (200-500) mg/dL ABG pH 7.30 L (7.35-7.45) ABG pCO2 53 H (35-45) mmHg ABG pO2 >400 H (83-108) mmHg ABG HCO3 26 H (21-25) mmol/L ABG Total CO2 28 H (19-24) mmol/L ABG O2 Saturation 99.4 H (94-97) % ABG Hematocrit (34.0-46.0) % ABG Potassium (3.4-4.5) mmol/L ABG Ionized Calcium (4.5-5.3) mg/dL ABG Glucose (75-99) mg/dL Hemoglobin (13.0-17.5) gm/dL Sodium (137-145) mmol/L Chloride (98-107) mmol/L BUN (9-20) mg/dL Glucose (74-99) mg/dL POC Glucose (mg/dL) 113 H (75-99) mg/dL Calcium (8.4-10.2) mg/dL Magnesium (1.6-2.3) mg/dL Total Bilirubin (0.2-1.3) mg/dL AST (17-59) U/L Alkaline Phosphatase (38-126) U/L Total Protein (6.3-8.2) g/dL Albumin (3.5-5.0) g/dL Arterial Blood Potassium (3.4-4.5) mmol/L Arterial Blood Glucose (75-99) mg/dL Urine Protein (Negative) Urine Blood (Negative) Urine RBC (0-5) /hpf Urine WBC (0-5) /hpf Urine WBC Clumps (None) /hpf Urine Bacteria (None) /hpf Urine Mucus (None) /hpf Urine Yeast (Budding) (None) /hpf Crossmatch 06/10/17 06/10/17 06/10/17 Range/Units 16:00 16:20 16:50 WBC (3.8-10.6) k/uL RBC 2.48 L (4.30-5.90) m/uL Hgb 6.9 L* (13.0-17.5) gm/dL Hct 22.3 L (39.0-53.0) % MCHC 30.7 L (31.0-37.0) g/dL Plt Count 129 L (150-450) k/uL Neutrophils # (1.3-7.7) k/uL Neutrophils # (Manual) 7.90 H (1.3-7.7) k/uL Lymphocytes # (1.0-4.8) k/uL PT (9.0-12.0) sec INR (<1.2) APTT (22.0-30.0) sec Fibrinogen (200-500) mg/dL ABG pH (7.35-7.45) ABG pCO2 (35-45) mmHg ABG pO2 (83-108) mmHg ABG HCO3 (21-25) mmol/L ABG Total CO2 (19-24) mmol/L ABG O2 Saturation (94-97) % ABG Hematocrit (34.0-46.0) % ABG Potassium (3.4-4.5) mmol/L ABG Ionized Calcium (4.5-5.3) mg/dL ABG Glucose (75-99) mg/dL Hemoglobin (13.0-17.5) gm/dL Sodium (137-145) mmol/L Chloride (98-107) mmol/L BUN (9-20) mg/dL Glucose (74-99) mg/dL POC Glucose (mg/dL) 105 H (75-99) mg/dL Calcium (8.4-10.2) mg/dL Magnesium (1.6-2.3) mg/dL Total Bilirubin (0.2-1.3) mg/dL AST (17-59) U/L Alkaline Phosphatase (38-126) U/L Total Protein (6.3-8.2) g/dL Albumin (3.5-5.0) g/dL Arterial Blood Potassium (3.4-4.5) mmol/L Arterial Blood Glucose (75-99) mg/dL Urine Protein 2+ H (Negative) Urine Blood Large H (Negative) Urine RBC >182 H (0-5) /hpf Urine WBC 89 H (0-5) /hpf Urine WBC Clumps Many H (None) /hpf Urine Bacteria Rare H (None) /hpf Urine Mucus Rare H (None) /hpf Urine Yeast (Budding) Occasional H (None) /hpf Crossmatch 06/10/17 06/10/17 06/10/17 Range/Units 17:47 18:13 18:59 WBC (3.8-10.6) k/uL RBC (4.30-5.90) m/uL Hgb (13.0-17.5) gm/dL Hct (39.0-53.0) % MCHC (31.0-37.0) g/dL Plt Count (150-450) k/uL Neutrophils # (1.3-7.7) k/uL Neutrophils # (Manual) (1.3-7.7) k/uL Lymphocytes # (1.0-4.8) k/uL PT (9.0-12.0) sec INR (<1.2) APTT (22.0-30.0) sec Fibrinogen (200-500) mg/dL ABG pH (7.35-7.45) ABG pCO2 (35-45) mmHg ABG pO2 (83-108) mmHg ABG HCO3 (21-25) mmol/L ABG Total CO2 (19-24) mmol/L ABG O2 Saturation (94-97) % ABG Hematocrit (34.0-46.0) % ABG Potassium (3.4-4.5) mmol/L ABG Ionized Calcium (4.5-5.3) mg/dL ABG Glucose (75-99) mg/dL Hemoglobin (13.0-17.5) gm/dL Sodium (137-145) mmol/L Chloride (98-107) mmol/L BUN (9-20) mg/dL Glucose (74-99) mg/dL POC Glucose (mg/dL) 184 H 243 H 199 H (75-99) mg/dL Calcium (8.4-10.2) mg/dL Magnesium (1.6-2.3) mg/dL Total Bilirubin (0.2-1.3) mg/dL AST (17-59) U/L Alkaline Phosphatase (38-126) U/L Total Protein (6.3-8.2) g/dL Albumin (3.5-5.0) g/dL Arterial Blood Potassium (3.4-4.5) mmol/L Arterial Blood Glucose (75-99) mg/dL Urine Protein (Negative) Urine Blood (Negative) Urine RBC (0-5) /hpf Urine WBC (0-5) /hpf Urine WBC Clumps (None) /hpf Urine Bacteria (None) /hpf Urine Mucus (None) /hpf Urine Yeast (Budding) (None) /hpf Crossmatch 06/10/17 06/10/17 06/10/17 Range/Units 19:00 19:00 19:00 WBC (3.8-10.6) k/uL RBC 2.52 L (4.30-5.90) m/uL Hgb 7.1 L (13.0-17.5) gm/dL Hct 22.5 L (39.0-53.0) % MCHC (31.0-37.0) g/dL Plt Count 130 L (150-450) k/uL Neutrophils # 7.8 H (1.3-7.7) k/uL Neutrophils # (Manual) (1.3-7.7) k/uL Lymphocytes # 0.3 L (1.0-4.8) k/uL PT 12.3 H (9.0-12.0) sec INR 1.3 H (<1.2) APTT 41.1 H (22.0-30.0) sec Fibrinogen 119 L (200-500) mg/dL ABG pH (7.35-7.45) ABG pCO2 (35-45) mmHg ABG pO2 (83-108) mmHg ABG HCO3 (21-25) mmol/L ABG Total CO2 (19-24) mmol/L ABG O2 Saturation (94-97) % ABG Hematocrit (34.0-46.0) % ABG Potassium (3.4-4.5) mmol/L ABG Ionized Calcium (4.5-5.3) mg/dL ABG Glucose (75-99) mg/dL Hemoglobin (13.0-17.5) gm/dL Sodium (137-145) mmol/L Chloride (98-107) mmol/L BUN (9-20) mg/dL Glucose 174 H (74-99) mg/dL POC Glucose (mg/dL) (75-99) mg/dL Calcium 7.2 L (8.4-10.2) mg/dL Magnesium 3.4 H (1.6-2.3) mg/dL Total Bilirubin 1.4 H (0.2-1.3) mg/dL AST (17-59) U/L Alkaline Phosphatase (38-126) U/L Total Protein 5.0 L (6.3-8.2) g/dL Albumin (3.5-5.0) g/dL Arterial Blood Potassium (3.4-4.5) mmol/L Arterial Blood Glucose (75-99) mg/dL Urine Protein (Negative) Urine Blood (Negative) Urine RBC (0-5) /hpf Urine WBC (0-5) /hpf Urine WBC Clumps (None) /hpf Urine Bacteria (None) /hpf Urine Mucus (None) /hpf Urine Yeast (Budding) (None) /hpf Crossmatch 06/10/17 06/10/17 06/10/17 Range/Units 20:28 21:04 21:28 WBC (3.8-10.6) k/uL RBC (4.30-5.90) m/uL Hgb (13.0-17.5) gm/dL Hct (39.0-53.0) % MCHC (31.0-37.0) g/dL Plt Count (150-450) k/uL Neutrophils # (1.3-7.7) k/uL Neutrophils # (Manual) (1.3-7.7) k/uL Lymphocytes # (1.0-4.8) k/uL PT (9.0-12.0) sec INR (<1.2) APTT (22.0-30.0) sec Fibrinogen (200-500) mg/dL ABG pH 7.34 L (7.35-7.45) ABG pCO2 47 H 46 H (35-45) mmHg ABG pO2 >420 H 197 H 193 H (83-108) mmHg ABG HCO3 27 H (21-25) mmol/L ABG Total CO2 28 H 26 H 26 H (19-24) mmol/L ABG O2 Saturation 99.8 H 99.5 H 99.6 H (94-97) % ABG Hematocrit 22 L 22 L 22 L (34.0-46.0) % ABG Potassium 4.7 H 4.6 H (3.4-4.5) mmol/L ABG Ionized Calcium 4.0 L 4.1 L 4.1 L (4.5-5.3) mg/dL ABG Glucose 138 H 129 H 125 H (75-99) mg/dL Hemoglobin 7.0 L* 7.3 L 7.0 L* (13.0-17.5) gm/dL Sodium (137-145) mmol/L Chloride (98-107) mmol/L BUN (9-20) mg/dL Glucose (74-99) mg/dL POC Glucose (mg/dL) (75-99) mg/dL Calcium (8.4-10.2) mg/dL Magnesium (1.6-2.3) mg/dL Total Bilirubin (0.2-1.3) mg/dL AST (17-59) U/L Alkaline Phosphatase (38-126) U/L Total Protein (6.3-8.2) g/dL Albumin (3.5-5.0) g/dL Arterial Blood Potassium 4.7 H 4.6 H (3.4-4.5) mmol/L Arterial Blood Glucose 138 H 129 H 125 H (75-99) mg/dL Urine Protein (Negative) Urine Blood (Negative) Urine RBC (0-5) /hpf Urine WBC (0-5) /hpf Urine WBC Clumps (None) /hpf Urine Bacteria (None) /hpf Urine Mucus (None) /hpf Urine Yeast (Budding) (None) /hpf Crossmatch 06/10/17 06/10/17 06/10/17 Range/Units 22:15 22:15 22:15 WBC (3.8-10.6) k/uL RBC 2.72 L (4.30-5.90) m/uL Hgb 7.8 L (13.0-17.5) gm/dL Hct 24.2 L (39.0-53.0) % MCHC (31.0-37.0) g/dL Plt Count 135 L (150-450) k/uL Neutrophils # (1.3-7.7) k/uL Neutrophils # (Manual) (1.3-7.7) k/uL Lymphocytes # (1.0-4.8) k/uL PT 12.4 H (9.0-12.0) sec INR 1.3 H (<1.2) APTT (22.0-30.0) sec Fibrinogen (200-500) mg/dL ABG pH (7.35-7.45) ABG pCO2 (35-45) mmHg ABG pO2 (83-108) mmHg ABG HCO3 (21-25) mmol/L ABG Total CO2 (19-24) mmol/L ABG O2 Saturation (94-97) % ABG Hematocrit (34.0-46.0) % ABG Potassium (3.4-4.5) mmol/L ABG Ionized Calcium (4.5-5.3) mg/dL ABG Glucose (75-99) mg/dL Hemoglobin (13.0-17.5) gm/dL Sodium (137-145) mmol/L Chloride 108 H (98-107) mmol/L BUN (9-20) mg/dL Glucose 114 H (74-99) mg/dL POC Glucose (mg/dL) (75-99) mg/dL Calcium 7.8 L (8.4-10.2) mg/dL Magnesium 3.1 H (1.6-2.3) mg/dL Total Bilirubin 1.9 H (0.2-1.3) mg/dL AST (17-59) U/L Alkaline Phosphatase (38-126) U/L Total Protein 4.9 L (6.3-8.2) g/dL Albumin (3.5-5.0) g/dL Arterial Blood Potassium (3.4-4.5) mmol/L Arterial Blood Glucose (75-99) mg/dL Urine Protein (Negative) Urine Blood (Negative) Urine RBC (0-5) /hpf Urine WBC (0-5) /hpf Urine WBC Clumps (None) /hpf Urine Bacteria (None) /hpf Urine Mucus (None) /hpf Urine Yeast (Budding) (None) /hpf Crossmatch 06/10/17 06/10/17 06/11/17 Range/Units 22:18 23:05 00:08 WBC (3.8-10.6) k/uL RBC (4.30-5.90) m/uL Hgb (13.0-17.5) gm/dL Hct (39.0-53.0) % MCHC (31.0-37.0) g/dL Plt Count (150-450) k/uL Neutrophils # (1.3-7.7) k/uL Neutrophils # (Manual) (1.3-7.7) k/uL Lymphocytes # (1.0-4.8) k/uL PT (9.0-12.0) sec INR (<1.2) APTT (22.0-30.0) sec Fibrinogen (200-500) mg/dL ABG pH (7.35-7.45) ABG pCO2 (35-45) mmHg ABG pO2 (83-108) mmHg ABG HCO3 (21-25) mmol/L ABG Total CO2 (19-24) mmol/L ABG O2 Saturation (94-97) % ABG Hematocrit (34.0-46.0) % ABG Potassium (3.4-4.5) mmol/L ABG Ionized Calcium (4.5-5.3) mg/dL ABG Glucose (75-99) mg/dL Hemoglobin (13.0-17.5) gm/dL Sodium (137-145) mmol/L Chloride (98-107) mmol/L BUN (9-20) mg/dL Glucose (74-99) mg/dL POC Glucose (mg/dL) 124 H 109 H 107 H (75-99) mg/dL Calcium (8.4-10.2) mg/dL Magnesium (1.6-2.3) mg/dL Total Bilirubin (0.2-1.3) mg/dL AST (17-59) U/L Alkaline Phosphatase (38-126) U/L Total Protein (6.3-8.2) g/dL Albumin (3.5-5.0) g/dL Arterial Blood Potassium (3.4-4.5) mmol/L Arterial Blood Glucose (75-99) mg/dL Urine Protein (Negative) Urine Blood (Negative) Urine RBC (0-5) /hpf Urine WBC (0-5) /hpf Urine WBC Clumps (None) /hpf Urine Bacteria (None) /hpf Urine Mucus (None) /hpf Urine Yeast (Budding) (None) /hpf Crossmatch 06/11/17 06/11/17 06/11/17 Range/Units 01:19 01:20 02:14 WBC 14.4 H (3.8-10.6) k/uL RBC 3.04 L (4.30-5.90) m/uL Hgb 8.4 L (13.0-17.5) gm/dL Hct 26.9 L (39.0-53.0) % MCHC (31.0-37.0) g/dL Plt Count (150-450) k/uL Neutrophils # 13.7 H (1.3-7.7) k/uL Neutrophils # (Manual) (1.3-7.7) k/uL Lymphocytes # 0.2 L (1.0-4.8) k/uL PT (9.0-12.0) sec INR (<1.2) APTT (22.0-30.0) sec Fibrinogen (200-500) mg/dL ABG pH (7.35-7.45) ABG pCO2 (35-45) mmHg ABG pO2 (83-108) mmHg ABG HCO3 (21-25) mmol/L ABG Total CO2 (19-24) mmol/L ABG O2 Saturation (94-97) % ABG Hematocrit (34.0-46.0) % ABG Potassium (3.4-4.5) mmol/L ABG Ionized Calcium (4.5-5.3) mg/dL ABG Glucose (75-99) mg/dL Hemoglobin (13.0-17.5) gm/dL Sodium (137-145) mmol/L Chloride (98-107) mmol/L BUN (9-20) mg/dL Glucose (74-99) mg/dL POC Glucose (mg/dL) 124 H 129 H (75-99) mg/dL Calcium (8.4-10.2) mg/dL Magnesium (1.6-2.3) mg/dL Total Bilirubin (0.2-1.3) mg/dL AST (17-59) U/L Alkaline Phosphatase (38-126) U/L Total Protein (6.3-8.2) g/dL Albumin (3.5-5.0) g/dL Arterial Blood Potassium (3.4-4.5) mmol/L Arterial Blood Glucose (75-99) mg/dL Urine Protein (Negative) Urine Blood (Negative) Urine RBC (0-5) /hpf Urine WBC (0-5) /hpf Urine WBC Clumps (None) /hpf Urine Bacteria (None) /hpf Urine Mucus (None) /hpf Urine Yeast (Budding) (None) /hpf Crossmatch 06/11/17 06/11/17 06/11/17 Range/Units 02:39 03:15 04:02 WBC (3.8-10.6) k/uL RBC (4.30-5.90) m/uL Hgb (13.0-17.5) gm/dL Hct (39.0-53.0) % MCHC (31.0-37.0) g/dL Plt Count (150-450) k/uL Neutrophils # (1.3-7.7) k/uL Neutrophils # (Manual) (1.3-7.7) k/uL Lymphocytes # (1.0-4.8) k/uL PT (9.0-12.0) sec INR (<1.2) APTT (22.0-30.0) sec Fibrinogen (200-500) mg/dL ABG pH (7.35-7.45) ABG pCO2 (35-45) mmHg ABG pO2 58 L (83-108) mmHg ABG HCO3 26 H (21-25) mmol/L ABG Total CO2 27 H (19-24) mmol/L ABG O2 Saturation 90.7 L (94-97) % ABG Hematocrit (34.0-46.0) % ABG Potassium (3.4-4.5) mmol/L ABG Ionized Calcium (4.5-5.3) mg/dL ABG Glucose (75-99) mg/dL Hemoglobin (13.0-17.5) gm/dL Sodium (137-145) mmol/L Chloride (98-107) mmol/L BUN (9-20) mg/dL Glucose (74-99) mg/dL POC Glucose (mg/dL) 128 H 117 H (75-99) mg/dL Calcium (8.4-10.2) mg/dL Magnesium (1.6-2.3) mg/dL Total Bilirubin (0.2-1.3) mg/dL AST (17-59) U/L Alkaline Phosphatase (38-126) U/L Total Protein (6.3-8.2) g/dL Albumin (3.5-5.0) g/dL Arterial Blood Potassium (3.4-4.5) mmol/L Arterial Blood Glucose (75-99) mg/dL Urine Protein (Negative) Urine Blood (Negative) Urine RBC (0-5) /hpf Urine WBC (0-5) /hpf Urine WBC Clumps (None) /hpf Urine Bacteria (None) /hpf Urine Mucus (None) /hpf Urine Yeast (Budding) (None) /hpf Crossmatch 06/11/17 06/11/17 06/11/17 Range/Units 04:10 04:10 04:10 WBC 12.6 H (3.8-10.6) k/uL RBC 2.78 L (4.30-5.90) m/uL Hgb 8.0 L (13.0-17.5) gm/dL Hct 24.4 L (39.0-53.0) % MCHC (31.0-37.0) g/dL Plt Count (150-450) k/uL Neutrophils # 11.9 H (1.3-7.7) k/uL Neutrophils # (Manual) (1.3-7.7) k/uL Lymphocytes # 0.2 L (1.0-4.8) k/uL PT 12.2 H (9.0-12.0) sec INR 1.3 H (<1.2) APTT (22.0-30.0) sec Fibrinogen (200-500) mg/dL ABG pH (7.35-7.45) ABG pCO2 (35-45) mmHg ABG pO2 (83-108) mmHg ABG HCO3 (21-25) mmol/L ABG Total CO2 (19-24) mmol/L ABG O2 Saturation (94-97) % ABG Hematocrit (34.0-46.0) % ABG Potassium (3.4-4.5) mmol/L ABG Ionized Calcium (4.5-5.3) mg/dL ABG Glucose (75-99) mg/dL Hemoglobin (13.0-17.5) gm/dL Sodium 146 H (137-145) mmol/L Chloride 109 H (98-107) mmol/L BUN 21 H (9-20) mg/dL Glucose 110 H (74-99) mg/dL POC Glucose (mg/dL) (75-99) mg/dL Calcium 7.7 L (8.4-10.2) mg/dL Magnesium 2.9 H (1.6-2.3) mg/dL Total Bilirubin (0.2-1.3) mg/dL AST 65 H (17-59) U/L Alkaline Phosphatase (38-126) U/L Total Protein 5.0 L (6.3-8.2) g/dL Albumin (3.5-5.0) g/dL Arterial Blood Potassium (3.4-4.5) mmol/L Arterial Blood Glucose (75-99) mg/dL Urine Protein (Negative) Urine Blood (Negative) Urine RBC (0-5) /hpf Urine WBC (0-5) /hpf Urine WBC Clumps (None) /hpf Urine Bacteria (None) /hpf Urine Mucus (None) /hpf Urine Yeast (Budding) (None) /hpf Crossmatch 06/11/17 06/11/17 06/11/17 Range/Units 05:08 06:12 06:55 WBC (3.8-10.6) k/uL RBC (4.30-5.90) m/uL Hgb (13.0-17.5) gm/dL Hct (39.0-53.0) % MCHC (31.0-37.0) g/dL Plt Count (150-450) k/uL Neutrophils # (1.3-7.7) k/uL Neutrophils # (Manual) (1.3-7.7) k/uL Lymphocytes # (1.0-4.8) k/uL PT (9.0-12.0) sec INR (<1.2) APTT (22.0-30.0) sec Fibrinogen (200-500) mg/dL ABG pH (7.35-7.45) ABG pCO2 (35-45) mmHg ABG pO2 (83-108) mmHg ABG HCO3 (21-25) mmol/L ABG Total CO2 (19-24) mmol/L ABG O2 Saturation (94-97) % ABG Hematocrit (34.0-46.0) % ABG Potassium (3.4-4.5) mmol/L ABG Ionized Calcium (4.5-5.3) mg/dL ABG Glucose (75-99) mg/dL Hemoglobin (13.0-17.5) gm/dL Sodium (137-145) mmol/L Chloride (98-107) mmol/L BUN (9-20) mg/dL Glucose (74-99) mg/dL POC Glucose (mg/dL) 110 H 119 H 126 H (75-99) mg/dL Calcium (8.4-10.2) mg/dL Magnesium (1.6-2.3) mg/dL Total Bilirubin (0.2-1.3) mg/dL AST (17-59) U/L Alkaline Phosphatase (38-126) U/L Total Protein (6.3-8.2) g/dL Albumin (3.5-5.0) g/dL Arterial Blood Potassium (3.4-4.5) mmol/L Arterial Blood Glucose (75-99) mg/dL Urine Protein (Negative) Urine Blood (Negative) Urine RBC (0-5) /hpf Urine WBC (0-5) /hpf Urine WBC Clumps (None) /hpf Urine Bacteria (None) /hpf Urine Mucus (None) /hpf Urine Yeast (Budding) (None) /hpf Crossmatch 06/11/17 06/11/17 06/11/17 Range/Units 07:42 08:00 09:06 WBC (3.8-10.6) k/uL RBC (4.30-5.90) m/uL Hgb (13.0-17.5) gm/dL Hct (39.0-53.0) % MCHC (31.0-37.0) g/dL Plt Count (150-450) k/uL Neutrophils # (1.3-7.7) k/uL Neutrophils # (Manual) (1.3-7.7) k/uL Lymphocytes # (1.0-4.8) k/uL PT (9.0-12.0) sec INR (<1.2) APTT (22.0-30.0) sec Fibrinogen (200-500) mg/dL ABG pH (7.35-7.45) ABG pCO2 (35-45) mmHg ABG pO2 80 L (83-108) mmHg ABG HCO3 26 H (21-25) mmol/L ABG Total CO2 27 H (19-24) mmol/L ABG O2 Saturation (94-97) % ABG Hematocrit (34.0-46.0) % ABG Potassium (3.4-4.5) mmol/L ABG Ionized Calcium (4.5-5.3) mg/dL ABG Glucose (75-99) mg/dL Hemoglobin (13.0-17.5) gm/dL Sodium (137-145) mmol/L Chloride (98-107) mmol/L BUN (9-20) mg/dL Glucose (74-99) mg/dL POC Glucose (mg/dL) 135 H 129 H (75-99) mg/dL Calcium (8.4-10.2) mg/dL Magnesium (1.6-2.3) mg/dL Total Bilirubin (0.2-1.3) mg/dL AST (17-59) U/L Alkaline Phosphatase (38-126) U/L Total Protein (6.3-8.2) g/dL Albumin (3.5-5.0) g/dL Arterial Blood Potassium (3.4-4.5) mmol/L Arterial Blood Glucose (75-99) mg/dL Urine Protein (Negative) Urine Blood (Negative) Urine RBC (0-5) /hpf Urine WBC (0-5) /hpf Urine WBC Clumps (None) /hpf Urine Bacteria (None) /hpf Urine Mucus (None) /hpf Urine Yeast (Budding) (None) /hpf Crossmatch 06/11/17 06/11/17 Range/Units 09:47 11:20 WBC (3.8-10.6) k/uL RBC (4.30-5.90) m/uL Hgb (13.0-17.5) gm/dL Hct (39.0-53.0) % MCHC (31.0-37.0) g/dL Plt Count (150-450) k/uL Neutrophils # (1.3-7.7) k/uL Neutrophils # (Manual) (1.3-7.7) k/uL Lymphocytes # (1.0-4.8) k/uL PT (9.0-12.0) sec INR (<1.2) APTT (22.0-30.0) sec Fibrinogen (200-500) mg/dL ABG pH (7.35-7.45) ABG pCO2 (35-45) mmHg ABG pO2 (83-108) mmHg ABG HCO3 (21-25) mmol/L ABG Total CO2 (19-24) mmol/L ABG O2 Saturation (94-97) % ABG Hematocrit (34.0-46.0) % ABG Potassium (3.4-4.5) mmol/L ABG Ionized Calcium (4.5-5.3) mg/dL ABG Glucose (75-99) mg/dL Hemoglobin (13.0-17.5) gm/dL Sodium (137-145) mmol/L Chloride (98-107) mmol/L BUN (9-20) mg/dL Glucose (74-99) mg/dL POC Glucose (mg/dL) 148 H 111 H (75-99) mg/dL Calcium (8.4-10.2) mg/dL Magnesium (1.6-2.3) mg/dL Total Bilirubin (0.2-1.3) mg/dL AST (17-59) U/L Alkaline Phosphatase (38-126) U/L Total Protein (6.3-8.2) g/dL Albumin (3.5-5.0) g/dL Arterial Blood Potassium (3.4-4.5) mmol/L Arterial Blood Glucose (75-99) mg/dL Urine Protein (Negative) Urine Blood (Negative) Urine RBC (0-5) /hpf Urine WBC (0-5) /hpf Urine WBC Clumps (None) /hpf Urine Bacteria (None) /hpf Urine Mucus (None) /hpf Urine Yeast (Budding) (None) /hpf Crossmatch Microbiology - Last 24 Hours (Table) 06/10/17 16:50 Urine Culture - Preliminary Urine,Catheterized Assessment and Plan Assessment: 1: Status post CABG and mitral valve repair postoperative day #1 1 coronary artery disease with evidence of severe mitral regurgitation, impaired LV function with an ejection fraction of around 25-30% in addition to dilatation of the right ventricle and moderate degree of pulmonary hypertension with a PA pressure estimated to be around 57 and addition to underlying coronary artery disease. 2 diffuse emphysema with centrilobular changes as evident on the CAT scan of the chest, 3 bilateral pleural effusion, small, right more than left, likely related to CHF , more optimized 4 atrial fibrillation with rapid ventricular response, recovered and the patient is still having episodes of 80 fibrillation yet at the time of evaluation this morning the patient's rhythm was sinus. 5 CHF with an ejection fraction of 25-30% based on echocardiogram. 6 BPH 7 Crohn's disease 8 hypertension 9 nephrolithiasis Recommendation: Patient was given a short trial of pressure support and CPAP while I was at bedside, extubated shortly after, patient tolerated the extubation well, he is presently on nasal cannula, in no distress, very comfortable, family is at bedside, and I discussed his condition with the family as well as Dr. Davila. Critical care time is 34 minutes. Time with Patient: Greater than 30
--- NOTE | 2017-06-11 13:28 | P.PN ---
Subjective Progress Note Date: 06/11/17 Patient was extubated earlier today and seems to be doing fine , no significant dyspnea, does report some chest discomfort associated with his chest hugger. postop day #1 s/p 4 vessel CABG with left internal mammary artery graft to LAD saphenous vein graft to obtuse marginal high diagonal right coronary arteries and mitral valve annuloplasty with physio ring . Currently the patient is hemodynamically stable, but is having a postop anemia/hemorrhage likely secondary to Xarelto coagulopathy, the patient has received several units of blood, FFP, platelets continues to be hemodynamically stable Objective - Vital Signs Vital signs: Vital Signs Temp 97.9 F 06/11/17 04:00 Pulse 62 06/11/17 11:50 Resp 15 06/11/17 09:00 BP 94/47 06/10/17 21:48 Pulse Ox 95 06/11/17 09:22 Intake & Output 06/10/17 06/11/17 06/11/17 18:59 06:59 18:59 Intake Total 2584.586 6359.259 786.2 Output Total 5218 4309 390 Balance -2633.414 2050.259 396.2 Weight 89.7 kg Intake: IV 183 1801 733 Albumin Human 5% 250 ml 1050 In Empty Bag 1 bag @ 250 mls/hr IVPB Q1HR PRN Rx#: [id number] C/o injectate 220 100 Lactated Ringers 1,000 ml 150 450 606 @ 50 mls/hr IV .Q20H CHERYL Rx#:[id number] pressure bags 81 27 Intake, IV Titration 10.586 115.259 53.2 Amount Clevidipine Butyrate 25 40.900 21.6 mg In Empty Bag 1 bag @ 1 MG/HR 2 mls/hr IV .Q24H [facility]ERYL Rx#:[id number] Insulin Regular 100 unit 6.133 10.458 In Sodium Chloride 0.9% 100 ml @ Per Protocol IV .Q0M CHERYL Rx#:[id number] Norepinephrin 16 mg-0.9% 4.453 1.719 Ns Pmx 16 mg In 250 ml @ Titrate IV .Q0M CHERYL Rx#: [id number] Propofol 1,000 mg In 62.182 31.6 Empty Bag 1 bag @ Titrate IV .Q0M CHERYL Rx#: [id number] Blood Product 2391 4443 Cryoprecipitate Unit 10 [id number] Cryoprecipitate Unit 10 [id number] Cryoprecipitate Unit 10 [id number] Cryoprecipitate Unit 10 [id number] Cryoprecipitate Unit 10 [id number] Cryoprecipitate Unit 10 [id number] Cryoprecipitate Unit 10 [id number] Cryoprecipitate Unit 10 [id number] Cryoprecipitate Unit 10 [id number] Cryoprecipitate Unit 10 [id number] Ffp 24 Cpd Unit 336 [id number] Ffp 24 Cpd Unit 332 [id number] Ffp 24 Cpd Unit 297 [id number] Ffp 24 Cpd Unit 310 [id number] Platelet Pheresis Acda1 302 Unit [id number] Platelet Pheresis Acda1 306 Unit [id number] Platelet Pheresis Acda2 194 Unit [id number] Rc As-1 Unit 310 [id number] Rc As-1 Unit 310 [id number] Rc As-1 Unit 310 [id number] Rc As-1 Unit 310 [id number] Rc As-1 Unit 310 [id number] Output: Chest Tube Drainage 2270 2238 240 Right/Left Mediastinal 1750 1290 120 Right/Left Pleural Chest 520 948 120 Tube Urine 748 1621 150 Estimated Blood Loss 2200 450 Other: Voiding Method Indwelling Catheter Indwelling Catheter ABP, PAP, CO, CI - Last Documented Arterial Blood Pressure 107/42 Pulmonary Artery Pressure 40/18 Cardiac Output 5 Cardiac Index 2.5 - Exam Constitutional: 71-year-old male, appearing stated age conversant and pleasant Eyes: Anicteric sclerae, moist conjunctiva, no lid-lag, PERRLA ENMT: NC/AT,Oropharynx clear, no erythema, exudates Neck:Supple, FROM, no masses, or JVD, No carotid bruits; No thyromegaly, Cordis and PA lines in place Lungs: Clear to auscultation, Clear to percussion, Normal respiratory effort, no accessory muscle use Cardiovascular: Heart regular in rate and rhythm, 2/6 systolic heart murmur in the precordium, gallops, or rubs no peripheral edema, mediastinal and pleural tubes in place Abdominal: Soft Nontender, nom distended, no guarding, no rebound or rigidity, Normoactive bowel sounds No hepatomegaly, No splenomegaly, No palpable mass No abdominal wall hernia noted Skin: Normal temperature, tone, texture, turgor, No induration No subcutaneous nodules, No rash, lesions, No ulcers Extremities:No digital cyanosis No clubbing, Pedal pulses intact and symmetrical Radial pulses intact and symmetrical Normal gait and station, No calf tenderness Psychiatric: Alert and oriented to person, place and time, Appropriate affect Intact judgement Neuro: Unable to fully assess his neurological system as the patient is Sedated and intubated - Labs CBC & Chem 7: 06/11/17 04:10 06/11/17 04:10 Labs: Abnormal Lab Results - Last 24 Hours (Table) 06/09/17 06/10/17 06/10/17 Range/Units 09:03 10:14 10:51 WBC (3.8-10.6) k/uL RBC (4.30-5.90) m/uL Hgb (13.0-17.5) gm/dL Hct (39.0-53.0) % MCHC (31.0-37.0) g/dL Plt Count (150-450) k/uL Neutrophils # (1.3-7.7) k/uL Neutrophils # (Manual) (1.3-7.7) k/uL Lymphocytes # (1.0-4.8) k/uL PT (9.0-12.0) sec INR (<1.2) APTT (22.0-30.0) sec Fibrinogen (200-500) mg/dL ABG pH (7.35-7.45) ABG pCO2 59 H 47 H (35-45) mmHg ABG pO2 113 H 377 H (83-108) mmHg ABG HCO3 33 H 29 H (21-25) mmol/L ABG Total CO2 35 H 30 H (19-24) mmol/L ABG O2 Saturation 97.7 H 99.7 H (94-97) % ABG Hematocrit 30 L 25 L (34.0-46.0) % ABG Potassium (3.4-4.5) mmol/L ABG Ionized Calcium 4.0 L (4.5-5.3) mg/dL ABG Glucose 114 H 100 H (75-99) mg/dL Hemoglobin 9.9 L 8.2 L (13.0-17.5) gm/dL Sodium (137-145) mmol/L Chloride (98-107) mmol/L BUN (9-20) mg/dL Glucose (74-99) mg/dL POC Glucose (mg/dL) (75-99) mg/dL Calcium (8.4-10.2) mg/dL Magnesium (1.6-2.3) mg/dL Total Bilirubin (0.2-1.3) mg/dL AST (17-59) U/L Alkaline Phosphatase (38-126) U/L Total Protein (6.3-8.2) g/dL Albumin (3.5-5.0) g/dL Arterial Blood Potassium (3.4-4.5) mmol/L Arterial Blood Glucose 114 H 100 H (75-99) mg/dL Urine Protein (Negative) Urine Blood (Negative) Urine RBC (0-5) /hpf Urine WBC (0-5) /hpf Urine WBC Clumps (None) /hpf Urine Bacteria (None) /hpf Urine Mucus (None) /hpf Urine Yeast (Budding) (None) /hpf Crossmatch See Detail 06/10/17 06/10/17 06/10/17 Range/Units 11:29 12:02 12:38 WBC (3.8-10.6) k/uL RBC (4.30-5.90) m/uL Hgb (13.0-17.5) gm/dL Hct (39.0-53.0) % MCHC (31.0-37.0) g/dL Plt Count (150-450) k/uL Neutrophils # (1.3-7.7) k/uL Neutrophils # (Manual) (1.3-7.7) k/uL Lymphocytes # (1.0-4.8) k/uL PT (9.0-12.0) sec INR (<1.2) APTT (22.0-30.0) sec Fibrinogen (200-500) mg/dL ABG pH (7.35-7.45) ABG pCO2 50 H 46 H (35-45) mmHg ABG pO2 288 H 252 H 297 H (83-108) mmHg ABG HCO3 30 H 30 H 29 H (21-25) mmol/L ABG Total CO2 31 H 32 H 30 H (19-24) mmol/L ABG O2 Saturation 98.6 H 99.5 H 99.7 H (94-97) % ABG Hematocrit 26 L 25 L 26 L (34.0-46.0) % ABG Potassium 4.7 H (3.4-4.5) mmol/L ABG Ionized Calcium 4.4 L 4.4 L 4.3 L (4.5-5.3) mg/dL ABG Glucose 122 H 141 H 143 H (75-99) mg/dL Hemoglobin 8.6 L 8.1 L 8.3 L (13.0-17.5) gm/dL Sodium (137-145) mmol/L Chloride (98-107) mmol/L BUN (9-20) mg/dL Glucose (74-99) mg/dL POC Glucose (mg/dL) (75-99) mg/dL Calcium (8.4-10.2) mg/dL Magnesium (1.6-2.3) mg/dL Total Bilirubin (0.2-1.3) mg/dL AST (17-59) U/L Alkaline Phosphatase (38-126) U/L Total Protein (6.3-8.2) g/dL Albumin (3.5-5.0) g/dL Arterial Blood Potassium 4.7 H (3.4-4.5) mmol/L Arterial Blood Glucose 122 H 141 H 143 H (75-99) mg/dL Urine Protein (Negative) Urine Blood (Negative) Urine RBC (0-5) /hpf Urine WBC (0-5) /hpf Urine WBC Clumps (None) /hpf Urine Bacteria (None) /hpf Urine Mucus (None) /hpf Urine Yeast (Budding) (None) /hpf Crossmatch 06/10/17 06/10/17 06/10/17 Range/Units 14:12 15:35 15:35 WBC 11.0 H (3.8-10.6) k/uL RBC 2.56 L (4.30-5.90) m/uL Hgb 7.1 L D (13.0-17.5) gm/dL Hct 22.9 L (39.0-53.0) % MCHC (31.0-37.0) g/dL Plt Count 138 L (150-450) k/uL Neutrophils # 10.2 H (1.3-7.7) k/uL Neutrophils # (Manual) (1.3-7.7) k/uL Lymphocytes # 0.5 L (1.0-4.8) k/uL PT (9.0-12.0) sec INR (<1.2) APTT (22.0-30.0) sec Fibrinogen (200-500) mg/dL ABG pH (7.35-7.45) ABG pCO2 (35-45) mmHg ABG pO2 127 H (83-108) mmHg ABG HCO3 26 H (21-25) mmol/L ABG Total CO2 28 H (19-24) mmol/L ABG O2 Saturation 98.5 H (94-97) % ABG Hematocrit 24 L (34.0-46.0) % ABG Potassium (3.4-4.5) mmol/L ABG Ionized Calcium 4.2 L (4.5-5.3) mg/dL ABG Glucose 119 H (75-99) mg/dL Hemoglobin 7.9 L (13.0-17.5) gm/dL Sodium (137-145) mmol/L Chloride 110 H (98-107) mmol/L BUN 21 H (9-20) mg/dL Glucose (74-99) mg/dL POC Glucose (mg/dL) (75-99) mg/dL Calcium 7.4 L (8.4-10.2) mg/dL Magnesium 3.9 H (1.6-2.3) mg/dL Total Bilirubin (0.2-1.3) mg/dL AST (17-59) U/L Alkaline Phosphatase 30 L (38-126) U/L Total Protein 4.5 L (6.3-8.2) g/dL Albumin 3.1 L (3.5-5.0) g/dL Arterial Blood Potassium (3.4-4.5) mmol/L Arterial Blood Glucose 119 H (75-99) mg/dL Urine Protein (Negative) Urine Blood (Negative) Urine RBC (0-5) /hpf Urine WBC (0-5) /hpf Urine WBC Clumps (None) /hpf Urine Bacteria (None) /hpf Urine Mucus (None) /hpf Urine Yeast (Budding) (None) /hpf Crossmatch 06/10/17 06/10/17 06/10/17 Range/Units 15:35 15:38 15:58 WBC (3.8-10.6) k/uL RBC (4.30-5.90) m/uL Hgb (13.0-17.5) gm/dL Hct (39.0-53.0) % MCHC (31.0-37.0) g/dL Plt Count (150-450) k/uL Neutrophils # (1.3-7.7) k/uL Neutrophils # (Manual) (1.3-7.7) k/uL Lymphocytes # (1.0-4.8) k/uL PT 14.1 H (9.0-12.0) sec INR 1.5 H (<1.2) APTT 40.6 H (22.0-30.0) sec Fibrinogen (200-500) mg/dL ABG pH 7.30 L (7.35-7.45) ABG pCO2 53 H (35-45) mmHg ABG pO2 >400 H (83-108) mmHg ABG HCO3 26 H (21-25) mmol/L ABG Total CO2 28 H (19-24) mmol/L ABG O2 Saturation 99.4 H (94-97) % ABG Hematocrit (34.0-46.0) % ABG Potassium (3.4-4.5) mmol/L ABG Ionized Calcium (4.5-5.3) mg/dL ABG Glucose (75-99) mg/dL Hemoglobin (13.0-17.5) gm/dL Sodium (137-145) mmol/L Chloride (98-107) mmol/L BUN (9-20) mg/dL Glucose (74-99) mg/dL POC Glucose (mg/dL) 113 H (75-99) mg/dL Calcium (8.4-10.2) mg/dL Magnesium (1.6-2.3) mg/dL Total Bilirubin (0.2-1.3) mg/dL AST (17-59) U/L Alkaline Phosphatase (38-126) U/L Total Protein (6.3-8.2) g/dL Albumin (3.5-5.0) g/dL Arterial Blood Potassium (3.4-4.5) mmol/L Arterial Blood Glucose (75-99) mg/dL Urine Protein (Negative) Urine Blood (Negative) Urine RBC (0-5) /hpf Urine WBC (0-5) /hpf Urine WBC Clumps (None) /hpf Urine Bacteria (None) /hpf Urine Mucus (None) /hpf Urine Yeast (Budding) (None) /hpf Crossmatch 06/10/17 06/10/17 06/10/17 Range/Units 16:00 16:20 16:50 WBC (3.8-10.6) k/uL RBC 2.48 L (4.30-5.90) m/uL Hgb 6.9 L* (13.0-17.5) gm/dL Hct 22.3 L (39.0-53.0) % MCHC 30.7 L (31.0-37.0) g/dL Plt Count 129 L (150-450) k/uL Neutrophils # (1.3-7.7) k/uL Neutrophils # (Manual) 7.90 H (1.3-7.7) k/uL Lymphocytes # (1.0-4.8) k/uL PT (9.0-12.0) sec INR (<1.2) APTT (22.0-30.0) sec Fibrinogen (200-500) mg/dL ABG pH (7.35-7.45) ABG pCO2 (35-45) mmHg ABG pO2 (83-108) mmHg ABG HCO3 (21-25) mmol/L ABG Total CO2 (19-24) mmol/L ABG O2 Saturation (94-97) % ABG Hematocrit (34.0-46.0) % ABG Potassium (3.4-4.5) mmol/L ABG Ionized Calcium (4.5-5.3) mg/dL ABG Glucose (75-99) mg/dL Hemoglobin (13.0-17.5) gm/dL Sodium (137-145) mmol/L Chloride (98-107) mmol/L BUN (9-20) mg/dL Glucose (74-99) mg/dL POC Glucose (mg/dL) 105 H (75-99) mg/dL Calcium (8.4-10.2) mg/dL Magnesium (1.6-2.3) mg/dL Total Bilirubin (0.2-1.3) mg/dL AST (17-59) U/L Alkaline Phosphatase (38-126) U/L Total Protein (6.3-8.2) g/dL Albumin (3.5-5.0) g/dL Arterial Blood Potassium (3.4-4.5) mmol/L Arterial Blood Glucose (75-99) mg/dL Urine Protein 2+ H (Negative) Urine Blood Large H (Negative) Urine RBC >182 H (0-5) /hpf Urine WBC 89 H (0-5) /hpf Urine WBC Clumps Many H (None) /hpf Urine Bacteria Rare H (None) /hpf Urine Mucus Rare H (None) /hpf Urine Yeast (Budding) Occasional H (None) /hpf Crossmatch 06/10/17 06/10/17 06/10/17 Range/Units 17:47 18:13 18:59 WBC (3.8-10.6) k/uL RBC (4.30-5.90) m/uL Hgb (13.0-17.5) gm/dL Hct (39.0-53.0) % MCHC (31.0-37.0) g/dL Plt Count (150-450) k/uL Neutrophils # (1.3-7.7) k/uL Neutrophils # (Manual) (1.3-7.7) k/uL Lymphocytes # (1.0-4.8) k/uL PT (9.0-12.0) sec INR (<1.2) APTT (22.0-30.0) sec Fibrinogen (200-500) mg/dL ABG pH (7.35-7.45) ABG pCO2 (35-45) mmHg ABG pO2 (83-108) mmHg ABG HCO3 (21-25) mmol/L ABG Total CO2 (19-24) mmol/L ABG O2 Saturation (94-97) % ABG Hematocrit (34.0-46.0) % ABG Potassium (3.4-4.5) mmol/L ABG Ionized Calcium (4.5-5.3) mg/dL ABG Glucose (75-99) mg/dL Hemoglobin (13.0-17.5) gm/dL Sodium (137-145) mmol/L Chloride (98-107) mmol/L BUN (9-20) mg/dL Glucose (74-99) mg/dL POC Glucose (mg/dL) 184 H 243 H 199 H (75-99) mg/dL Calcium (8.4-10.2) mg/dL Magnesium (1.6-2.3) mg/dL Total Bilirubin (0.2-1.3) mg/dL AST (17-59) U/L Alkaline Phosphatase (38-126) U/L Total Protein (6.3-8.2) g/dL Albumin (3.5-5.0) g/dL Arterial Blood Potassium (3.4-4.5) mmol/L Arterial Blood Glucose (75-99) mg/dL Urine Protein (Negative) Urine Blood (Negative) Urine RBC (0-5) /hpf Urine WBC (0-5) /hpf Urine WBC Clumps (None) /hpf Urine Bacteria (None) /hpf Urine Mucus (None) /hpf Urine Yeast (Budding) (None) /hpf Crossmatch 06/10/17 06/10/17 06/10/17 Range/Units 19:00 19:00 19:00 WBC (3.8-10.6) k/uL RBC 2.52 L (4.30-5.90) m/uL Hgb 7.1 L (13.0-17.5) gm/dL Hct 22.5 L (39.0-53.0) % MCHC (31.0-37.0) g/dL Plt Count 130 L (150-450) k/uL Neutrophils # 7.8 H (1.3-7.7) k/uL Neutrophils # (Manual) (1.3-7.7) k/uL Lymphocytes # 0.3 L (1.0-4.8) k/uL PT 12.3 H (9.0-12.0) sec INR 1.3 H (<1.2) APTT 41.1 H (22.0-30.0) sec Fibrinogen 119 L (200-500) mg/dL ABG pH (7.35-7.45) ABG pCO2 (35-45) mmHg ABG pO2 (83-108) mmHg ABG HCO3 (21-25) mmol/L ABG Total CO2 (19-24) mmol/L ABG O2 Saturation (94-97) % ABG Hematocrit (34.0-46.0) % ABG Potassium (3.4-4.5) mmol/L ABG Ionized Calcium (4.5-5.3) mg/dL ABG Glucose (75-99) mg/dL Hemoglobin (13.0-17.5) gm/dL Sodium (137-145) mmol/L Chloride (98-107) mmol/L BUN (9-20) mg/dL Glucose 174 H (74-99) mg/dL POC Glucose (mg/dL) (75-99) mg/dL Calcium 7.2 L (8.4-10.2) mg/dL Magnesium 3.4 H (1.6-2.3) mg/dL Total Bilirubin 1.4 H (0.2-1.3) mg/dL AST (17-59) U/L Alkaline Phosphatase (38-126) U/L Total Protein 5.0 L (6.3-8.2) g/dL Albumin (3.5-5.0) g/dL Arterial Blood Potassium (3.4-4.5) mmol/L Arterial Blood Glucose (75-99) mg/dL Urine Protein (Negative) Urine Blood (Negative) Urine RBC (0-5) /hpf Urine WBC (0-5) /hpf Urine WBC Clumps (None) /hpf Urine Bacteria (None) /hpf Urine Mucus (None) /hpf Urine Yeast (Budding) (None) /hpf Crossmatch 06/10/17 06/10/17 06/10/17 Range/Units 20:28 21:04 21:28 WBC (3.8-10.6) k/uL RBC (4.30-5.90) m/uL Hgb (13.0-17.5) gm/dL Hct (39.0-53.0) % MCHC (31.0-37.0) g/dL Plt Count (150-450) k/uL Neutrophils # (1.3-7.7) k/uL Neutrophils # (Manual) (1.3-7.7) k/uL Lymphocytes # (1.0-4.8) k/uL PT (9.0-12.0) sec INR (<1.2) APTT (22.0-30.0) sec Fibrinogen (200-500) mg/dL ABG pH 7.34 L (7.35-7.45) ABG pCO2 47 H 46 H (35-45) mmHg ABG pO2 >420 H 197 H 193 H (83-108) mmHg ABG HCO3 27 H (21-25) mmol/L ABG Total CO2 28 H 26 H 26 H (19-24) mmol/L ABG O2 Saturation 99.8 H 99.5 H 99.6 H (94-97) % ABG Hematocrit 22 L 22 L 22 L (34.0-46.0) % ABG Potassium 4.7 H 4.6 H (3.4-4.5) mmol/L ABG Ionized Calcium 4.0 L 4.1 L 4.1 L (4.5-5.3) mg/dL ABG Glucose 138 H 129 H 125 H (75-99) mg/dL Hemoglobin 7.0 L* 7.3 L 7.0 L* (13.0-17.5) gm/dL Sodium (137-145) mmol/L Chloride (98-107) mmol/L BUN (9-20) mg/dL Glucose (74-99) mg/dL POC Glucose (mg/dL) (75-99) mg/dL Calcium (8.4-10.2) mg/dL Magnesium (1.6-2.3) mg/dL Total Bilirubin (0.2-1.3) mg/dL AST (17-59) U/L Alkaline Phosphatase (38-126) U/L Total Protein (6.3-8.2) g/dL Albumin (3.5-5.0) g/dL Arterial Blood Potassium 4.7 H 4.6 H (3.4-4.5) mmol/L Arterial Blood Glucose 138 H 129 H 125 H (75-99) mg/dL Urine Protein (Negative) Urine Blood (Negative) Urine RBC (0-5) /hpf Urine WBC (0-5) /hpf Urine WBC Clumps (None) /hpf Urine Bacteria (None) /hpf Urine Mucus (None) /hpf Urine Yeast (Budding) (None) /hpf Crossmatch 06/10/17 06/10/17 06/10/17 Range/Units 22:15 22:15 22:15 WBC (3.8-10.6) k/uL RBC 2.72 L (4.30-5.90) m/uL Hgb 7.8 L (13.0-17.5) gm/dL Hct 24.2 L (39.0-53.0) % MCHC (31.0-37.0) g/dL Plt Count 135 L (150-450) k/uL Neutrophils # (1.3-7.7) k/uL Neutrophils # (Manual) (1.3-7.7) k/uL Lymphocytes # (1.0-4.8) k/uL PT 12.4 H (9.0-12.0) sec INR 1.3 H (<1.2) APTT (22.0-30.0) sec Fibrinogen (200-500) mg/dL ABG pH (7.35-7.45) ABG pCO2 (35-45) mmHg ABG pO2 (83-108) mmHg ABG HCO3 (21-25) mmol/L ABG Total CO2 (19-24) mmol/L ABG O2 Saturation (94-97) % ABG Hematocrit (34.0-46.0) % ABG Potassium (3.4-4.5) mmol/L ABG Ionized Calcium (4.5-5.3) mg/dL ABG Glucose (75-99) mg/dL Hemoglobin (13.0-17.5) gm/dL Sodium (137-145) mmol/L Chloride 108 H (98-107) mmol/L BUN (9-20) mg/dL Glucose 114 H (74-99) mg/dL POC Glucose (mg/dL) (75-99) mg/dL Calcium 7.8 L (8.4-10.2) mg/dL Magnesium 3.1 H (1.6-2.3) mg/dL Total Bilirubin 1.9 H (0.2-1.3) mg/dL AST (17-59) U/L Alkaline Phosphatase (38-126) U/L Total Protein 4.9 L (6.3-8.2) g/dL Albumin (3.5-5.0) g/dL Arterial Blood Potassium (3.4-4.5) mmol/L Arterial Blood Glucose (75-99) mg/dL Urine Protein (Negative) Urine Blood (Negative) Urine RBC (0-5) /hpf Urine WBC (0-5) /hpf Urine WBC Clumps (None) /hpf Urine Bacteria (None) /hpf Urine Mucus (None) /hpf Urine Yeast (Budding) (None) /hpf Crossmatch 06/10/17 06/10/17 06/11/17 Range/Units 22:18 23:05 00:08 WBC (3.8-10.6) k/uL RBC (4.30-5.90) m/uL Hgb (13.0-17.5) gm/dL Hct (39.0-53.0) % MCHC (31.0-37.0) g/dL Plt Count (150-450) k/uL Neutrophils # (1.3-7.7) k/uL Neutrophils # (Manual) (1.3-7.7) k/uL Lymphocytes # (1.0-4.8) k/uL PT (9.0-12.0) sec INR (<1.2) APTT (22.0-30.0) sec Fibrinogen (200-500) mg/dL ABG pH (7.35-7.45) ABG pCO2 (35-45) mmHg ABG pO2 (83-108) mmHg ABG HCO3 (21-25) mmol/L ABG Total CO2 (19-24) mmol/L ABG O2 Saturation (94-97) % ABG Hematocrit (34.0-46.0) % ABG Potassium (3.4-4.5) mmol/L ABG Ionized Calcium (4.5-5.3) mg/dL ABG Glucose (75-99) mg/dL Hemoglobin (13.0-17.5) gm/dL Sodium (137-145) mmol/L Chloride (98-107) mmol/L BUN (9-20) mg/dL Glucose (74-99) mg/dL POC Glucose (mg/dL) 124 H 109 H 107 H (75-99) mg/dL Calcium (8.4-10.2) mg/dL Magnesium (1.6-2.3) mg/dL Total Bilirubin (0.2-1.3) mg/dL AST (17-59) U/L Alkaline Phosphatase (38-126) U/L Total Protein (6.3-8.2) g/dL Albumin (3.5-5.0) g/dL Arterial Blood Potassium (3.4-4.5) mmol/L Arterial Blood Glucose (75-99) mg/dL Urine Protein (Negative) Urine Blood (Negative) Urine RBC (0-5) /hpf Urine WBC (0-5) /hpf Urine WBC Clumps (None) /hpf Urine Bacteria (None) /hpf Urine Mucus (None) /hpf Urine Yeast (Budding) (None) /hpf Crossmatch 06/11/17 06/11/17 06/11/17 Range/Units 01:19 01:20 02:14 WBC 14.4 H (3.8-10.6) k/uL RBC 3.04 L (4.30-5.90) m/uL Hgb 8.4 L (13.0-17.5) gm/dL Hct 26.9 L (39.0-53.0) % MCHC (31.0-37.0) g/dL Plt Count (150-450) k/uL Neutrophils # 13.7 H (1.3-7.7) k/uL Neutrophils # (Manual) (1.3-7.7) k/uL Lymphocytes # 0.2 L (1.0-4.8) k/uL PT (9.0-12.0) sec INR (<1.2) APTT (22.0-30.0) sec Fibrinogen (200-500) mg/dL ABG pH (7.35-7.45) ABG pCO2 (35-45) mmHg ABG pO2 (83-108) mmHg ABG HCO3 (21-25) mmol/L ABG Total CO2 (19-24) mmol/L ABG O2 Saturation (94-97) % ABG Hematocrit (34.0-46.0) % ABG Potassium (3.4-4.5) mmol/L ABG Ionized Calcium (4.5-5.3) mg/dL ABG Glucose (75-99) mg/dL Hemoglobin (13.0-17.5) gm/dL Sodium (137-145) mmol/L Chloride (98-107) mmol/L BUN (9-20) mg/dL Glucose (74-99) mg/dL POC Glucose (mg/dL) 124 H 129 H (75-99) mg/dL Calcium (8.4-10.2) mg/dL Magnesium (1.6-2.3) mg/dL Total Bilirubin (0.2-1.3) mg/dL AST (17-59) U/L Alkaline Phosphatase (38-126) U/L Total Protein (6.3-8.2) g/dL Albumin (3.5-5.0) g/dL Arterial Blood Potassium (3.4-4.5) mmol/L Arterial Blood Glucose (75-99) mg/dL Urine Protein (Negative) Urine Blood (Negative) Urine RBC (0-5) /hpf Urine WBC (0-5) /hpf Urine WBC Clumps (None) /hpf Urine Bacteria (None) /hpf Urine Mucus (None) /hpf Urine Yeast (Budding) (None) /hpf Crossmatch 06/11/17 06/11/17 06/11/17 Range/Units 02:39 03:15 04:02 WBC (3.8-10.6) k/uL RBC (4.30-5.90) m/uL Hgb (13.0-17.5) gm/dL Hct (39.0-53.0) % MCHC (31.0-37.0) g/dL Plt Count (150-450) k/uL Neutrophils # (1.3-7.7) k/uL Neutrophils # (Manual) (1.3-7.7) k/uL Lymphocytes # (1.0-4.8) k/uL PT (9.0-12.0) sec INR (<1.2) APTT (22.0-30.0) sec Fibrinogen (200-500) mg/dL ABG pH (7.35-7.45) ABG pCO2 (35-45) mmHg ABG pO2 58 L (83-108) mmHg ABG HCO3 26 H (21-25) mmol/L ABG Total CO2 27 H (19-24) mmol/L ABG O2 Saturation 90.7 L (94-97) % ABG Hematocrit (34.0-46.0) % ABG Potassium (3.4-4.5) mmol/L ABG Ionized Calcium (4.5-5.3) mg/dL ABG Glucose (75-99) mg/dL Hemoglobin (13.0-17.5) gm/dL Sodium (137-145) mmol/L Chloride (98-107) mmol/L BUN (9-20) mg/dL Glucose (74-99) mg/dL POC Glucose (mg/dL) 128 H 117 H (75-99) mg/dL Calcium (8.4-10.2) mg/dL Magnesium (1.6-2.3) mg/dL Total Bilirubin (0.2-1.3) mg/dL AST (17-59) U/L Alkaline Phosphatase (38-126) U/L Total Protein (6.3-8.2) g/dL Albumin (3.5-5.0) g/dL Arterial Blood Potassium (3.4-4.5) mmol/L Arterial Blood Glucose (75-99) mg/dL Urine Protein (Negative) Urine Blood (Negative) Urine RBC (0-5) /hpf Urine WBC (0-5) /hpf Urine WBC Clumps (None) /hpf Urine Bacteria (None) /hpf Urine Mucus (None) /hpf Urine Yeast (Budding) (None) /hpf Crossmatch 06/11/17 06/11/17 06/11/17 Range/Units 04:10 04:10 04:10 WBC 12.6 H (3.8-10.6) k/uL RBC 2.78 L (4.30-5.90) m/uL Hgb 8.0 L (13.0-17.5) gm/dL Hct 24.4 L (39.0-53.0) % MCHC (31.0-37.0) g/dL Plt Count (150-450) k/uL Neutrophils # 11.9 H (1.3-7.7) k/uL Neutrophils # (Manual) (1.3-7.7) k/uL Lymphocytes # 0.2 L (1.0-4.8) k/uL PT 12.2 H (9.0-12.0) sec INR 1.3 H (<1.2) APTT (22.0-30.0) sec Fibrinogen (200-500) mg/dL ABG pH (7.35-7.45) ABG pCO2 (35-45) mmHg ABG pO2 (83-108) mmHg ABG HCO3 (21-25) mmol/L ABG Total CO2 (19-24) mmol/L ABG O2 Saturation (94-97) % ABG Hematocrit (34.0-46.0) % ABG Potassium (3.4-4.5) mmol/L ABG Ionized Calcium (4.5-5.3) mg/dL ABG Glucose (75-99) mg/dL Hemoglobin (13.0-17.5) gm/dL Sodium 146 H (137-145) mmol/L Chloride 109 H (98-107) mmol/L BUN 21 H (9-20) mg/dL Glucose 110 H (74-99) mg/dL POC Glucose (mg/dL) (75-99) mg/dL Calcium 7.7 L (8.4-10.2) mg/dL Magnesium 2.9 H (1.6-2.3) mg/dL Total Bilirubin (0.2-1.3) mg/dL AST 65 H (17-59) U/L Alkaline Phosphatase (38-126) U/L Total Protein 5.0 L (6.3-8.2) g/dL Albumin (3.5-5.0) g/dL Arterial Blood Potassium (3.4-4.5) mmol/L Arterial Blood Glucose (75-99) mg/dL Urine Protein (Negative) Urine Blood (Negative) Urine RBC (0-5) /hpf Urine WBC (0-5) /hpf Urine WBC Clumps (None) /hpf Urine Bacteria (None) /hpf Urine Mucus (None) /hpf Urine Yeast (Budding) (None) /hpf Crossmatch 06/11/17 06/11/17 06/11/17 Range/Units 05:08 06:12 06:55 WBC (3.8-10.6) k/uL RBC (4.30-5.90) m/uL Hgb (13.0-17.5) gm/dL Hct (39.0-53.0) % MCHC (31.0-37.0) g/dL Plt Count (150-450) k/uL Neutrophils # (1.3-7.7) k/uL Neutrophils # (Manual) (1.3-7.7) k/uL Lymphocytes # (1.0-4.8) k/uL PT (9.0-12.0) sec INR (<1.2) APTT (22.0-30.0) sec Fibrinogen (200-500) mg/dL ABG pH (7.35-7.45) ABG pCO2 (35-45) mmHg ABG pO2 (83-108) mmHg ABG HCO3 (21-25) mmol/L ABG Total CO2 (19-24) mmol/L ABG O2 Saturation (94-97) % ABG Hematocrit (34.0-46.0) % ABG Potassium (3.4-4.5) mmol/L ABG Ionized Calcium (4.5-5.3) mg/dL ABG Glucose (75-99) mg/dL Hemoglobin (13.0-17.5) gm/dL Sodium (137-145) mmol/L Chloride (98-107) mmol/L BUN (9-20) mg/dL Glucose (74-99) mg/dL POC Glucose (mg/dL) 110 H 119 H 126 H (75-99) mg/dL Calcium (8.4-10.2) mg/dL Magnesium (1.6-2.3) mg/dL Total Bilirubin (0.2-1.3) mg/dL AST (17-59) U/L Alkaline Phosphatase (38-126) U/L Total Protein (6.3-8.2) g/dL Albumin (3.5-5.0) g/dL Arterial Blood Potassium (3.4-4.5) mmol/L Arterial Blood Glucose (75-99) mg/dL Urine Protein (Negative) Urine Blood (Negative) Urine RBC (0-5) /hpf Urine WBC (0-5) /hpf Urine WBC Clumps (None) /hpf Urine Bacteria (None) /hpf Urine Mucus (None) /hpf Urine Yeast (Budding) (None) /hpf Crossmatch 06/11/17 06/11/17 06/11/17 Range/Units 07:42 08:00 09:06 WBC (3.8-10.6) k/uL RBC (4.30-5.90) m/uL Hgb (13.0-17.5) gm/dL Hct (39.0-53.0) % MCHC (31.0-37.0) g/dL Plt Count (150-450) k/uL Neutrophils # (1.3-7.7) k/uL Neutrophils # (Manual) (1.3-7.7) k/uL Lymphocytes # (1.0-4.8) k/uL PT (9.0-12.0) sec INR (<1.2) APTT (22.0-30.0) sec Fibrinogen (200-500) mg/dL ABG pH (7.35-7.45) ABG pCO2 (35-45) mmHg ABG pO2 80 L (83-108) mmHg ABG HCO3 26 H (21-25) mmol/L ABG Total CO2 27 H (19-24) mmol/L ABG O2 Saturation (94-97) % ABG Hematocrit (34.0-46.0) % ABG Potassium (3.4-4.5) mmol/L ABG Ionized Calcium (4.5-5.3) mg/dL ABG Glucose (75-99) mg/dL Hemoglobin (13.0-17.5) gm/dL Sodium (137-145) mmol/L Chloride (98-107) mmol/L BUN (9-20) mg/dL Glucose (74-99) mg/dL POC Glucose (mg/dL) 135 H 129 H (75-99) mg/dL Calcium (8.4-10.2) mg/dL Magnesium (1.6-2.3) mg/dL Total Bilirubin (0.2-1.3) mg/dL AST (17-59) U/L Alkaline Phosphatase (38-126) U/L Total Protein (6.3-8.2) g/dL Albumin (3.5-5.0) g/dL Arterial Blood Potassium (3.4-4.5) mmol/L Arterial Blood Glucose (75-99) mg/dL Urine Protein (Negative) Urine Blood (Negative) Urine RBC (0-5) /hpf Urine WBC (0-5) /hpf Urine WBC Clumps (None) /hpf Urine Bacteria (None) /hpf Urine Mucus (None) /hpf Urine Yeast (Budding) (None) /hpf Crossmatch 06/11/17 06/11/17 Range/Units 09:47 11:20 WBC (3.8-10.6) k/uL RBC (4.30-5.90) m/uL Hgb (13.0-17.5) gm/dL Hct (39.0-53.0) % MCHC (31.0-37.0) g/dL Plt Count (150-450) k/uL Neutrophils # (1.3-7.7) k/uL Neutrophils # (Manual) (1.3-7.7) k/uL Lymphocytes # (1.0-4.8) k/uL PT (9.0-12.0) sec INR (<1.2) APTT (22.0-30.0) sec Fibrinogen (200-500) mg/dL ABG pH (7.35-7.45) ABG pCO2 (35-45) mmHg ABG pO2 (83-108) mmHg ABG HCO3 (21-25) mmol/L ABG Total CO2 (19-24) mmol/L ABG O2 Saturation (94-97) % ABG Hematocrit (34.0-46.0) % ABG Potassium (3.4-4.5) mmol/L ABG Ionized Calcium (4.5-5.3) mg/dL ABG Glucose (75-99) mg/dL Hemoglobin (13.0-17.5) gm/dL Sodium (137-145) mmol/L Chloride (98-107) mmol/L BUN (9-20) mg/dL Glucose (74-99) mg/dL POC Glucose (mg/dL) 148 H 111 H (75-99) mg/dL Calcium (8.4-10.2) mg/dL Magnesium (1.6-2.3) mg/dL Total Bilirubin (0.2-1.3) mg/dL AST (17-59) U/L Alkaline Phosphatase (38-126) U/L Total Protein (6.3-8.2) g/dL Albumin (3.5-5.0) g/dL Arterial Blood Potassium (3.4-4.5) mmol/L Arterial Blood Glucose (75-99) mg/dL Urine Protein (Negative) Urine Blood (Negative) Urine RBC (0-5) /hpf Urine WBC (0-5) /hpf Urine WBC Clumps (None) /hpf Urine Bacteria (None) /hpf Urine Mucus (None) /hpf Urine Yeast (Budding) (None) /hpf Crossmatch Microbiology - Last 24 Hours (Table) 06/10/17 16:50 Urine Culture - Preliminary Urine,Catheterized Assessment and Plan (1) CAD (coronary artery disease) Narrative/Plan: * Status post four-vessel CABG with left internal mammary artery graft to LAD , saphenous grafts to obtuse marginal , high diagonal , right coronary arteries postop day #1 * CT surgery Dr. Pérez following Current Visit: Yes Status: Acute Code(s): I25.10 - ATHSCL HEART DISEASE OF [place] CORONARY ARTERY W/O ANG PCTRS SNOMED Code(s): 70222364 (2) Valvular heart disease Narrative/Plan: * Postop day #2 Status status post mitral valve annuloplasty with Physio ring placement * Postop RUT indicating resolution of his mitral regurgitation Current Visit: Yes Status: Acute Code(s): I38 - ENDOCARDITIS, VALVE UNSPECIFIED SNOMED Code(s): 781116 (3) Postoperative anemia due to acute blood loss Narrative/Plan: * Hemoglobin up to 8.4g * Patient has received several units of RBCs and FFP and platelets * continue to monitor his hemoglobin closely Current Visit: Yes Status: Acute Code(s): D62 - ACUTE POSTHEMORRHAGIC ANEMIA SNOMED Code(s): 56669744070132903 (4) Atrial fibrillation with rapid ventricular response Narrative/Plan: * Currently in normal sinus rhythm * Continue with amiodarone drip and metoprolol * Echocardiogram revealing severe systolic dysfunction with EF of 25-30%, with a severely dilated left atrium Current Visit: Yes Status: Resolved Code(s): I48.91 - UNSPECIFIED ATRIAL FIBRILLATION SNOMED Code(s): 844018164450456 (5) Systolic CHF, acute Narrative/Plan: * Severe cardiomyopathy EF of 20% on RUT * Continue with diuresis with Lasix, continue with beta billy therapy, low- dose DORIE inhibitor and Aldactone Current Visit: Yes Status: Acute Code(s): I50.21 - ACUTE SYSTOLIC ( CONGESTIVE) HEART FAILURE SNOMED Code(s): 691974193 (6) COPD (chronic obstructive pulmonary disease) with emphysema Narrative/Plan: * Continue current management Current Visit: Yes Status: Acute Code(s): J43.9 - EMPHYSEMA, UNSPECIFIED SNOMED Code(s): 45799285 (7) On mechanically assisted ventilation Narrative/Plan: * Patient successfully extubated earlier today after passing CPAP weaning trial Current Visit: Yes Status: Resolved Code(s): Z99.11 - DEPENDENCE ON RESPIRATOR [VENTILATOR] STATUS SNOMED Code(s): 110988035 Plan: Patient's critical but doing well today, on insulin dopamine drips for strict blood sugar control per protocol, and renal perfusion dopamine. Continue to monitor patient's bleeding and hemoglobin replacement with blood products
[2017-06-11 13:39] LABS: Glucose,Whole Blood 101 mg/dL (75-99)
[2017-06-11] MEDS ORDERED: BISACODYL 10 MG SUPP RECTAL PRN (14:53)
[2017-06-11] MEDS ORDERED: IPRATROPIUM-ALBUTEROL 3 ML NEB INHALATION PRN (14:54)
[2017-06-11 15:05] LABS: Glucose,Whole Blood 111 mg/dL (75-99)
[2017-06-11 17:13] LABS: Glucose,Whole Blood 125 mg/dL (75-99)
[2017-06-11] MEDS: LACTATED RINGERS 1,000 ML IV SCH (17:14)
[2017-06-11 18:55] LABS: Glucose,Whole Blood 116 mg/dL (75-99)
[2017-06-11 20:27] LABS: Glucose,Whole Blood 128 mg/dL (75-99)
[2017-06-11] MEDS: SENNOSIDES-DOCUSATE SODIUM 1 EACH TAB PO SCH (21:23)
[2017-06-11] MEDS: HYDROcodone/APAP 5-325MG 1 EACH TAB PO PRN (22:06)
[2017-06-11 22:41] LABS: Glucose,Whole Blood 125 mg/dL (75-99)
--- NOTE | 2017-06-11 22:49 | XR ---
EXAMINATION TYPE: XR chest 1V portable DATE OF EXAM: 06/11/2017 COMPARISON: Today HISTORY: Short of breath TECHNIQUE: Single frontal view of the chest is obtained. FINDINGS: Heart is enlarged. There are bilateral chest tubes. There is a right central venous cathet er with the tip in the main pulmonary artery. Endotracheal tube has been removed. There is no sign of a pneumothorax. There is mild pulmonary vascular congestion. Nasogastric tube has been removed. IMPRESSION: Mild heart failure that is improved compared to exam earlier today.
[2017-06-11 23:19] LABS: ABG Base Excess 1.8 mmol/L; ABG HCO3 25 mmol/L (21-25); ABG Oxygen Saturation 96.2 % (94-97); ABG PCO2 34 mmHg (35-45); ABG PH 7.48 (7.35-7.45); ABG PO2 76 mmHg (83-108); ABG TCO2 27 mmol/L (19-24)
[2017-06-11] MEDS: DOPamine DRIP 800 MG in DEXTROSE/WATER 1 500ML.BAG IV SCH (23:20)
[2017-06-11] MEDS ORDERED: diphenhydrAMINE 50 MG CAP PO PRN (23:27)
[2017-06-12 01:05] LABS: Glucose,Whole Blood 95 mg/dL (75-99)
[2017-06-12 03:19] LABS: Glucose,Whole Blood 110 mg/dL (75-99)
[2017-06-12] MEDS ORDERED: FUROSEMIDE 10 MG/ML 4 ML VIAL IV STA ×2 (03:33→14:16)
[2017-06-12 04:00] LABS: Basophils % (A) 0 %; Eosinophils % (A) 0 %; HCT 24.8 % (39.0-53.0); HGB 7.9 gm/dL (13.0-17.5); Hypochromasia Slight; Lymphocytes # (A) 0.4 k/uL (1.0-4.8); Lymphocytes % (A) 3 %; MCHC 31.7 g/dL (31.0-37.0); MCV 88.4 fL (80.0-100.0); Mean Platelet Volume 7.9; Monocytes # (A) 0.5 k/uL (0-1.0); Monocytes % (A) 4 %; Neutrophils # (A) 12.2 k/uL (1.3-7.7); Neutrophils % (A) 93 %; Platelet Count 207 k/uL (150-450); Poikilocytosis Slight; RDW 14.8 % (11.5-15.5); WBC 13.1 k/uL (3.8-10.6)
[2017-06-12 04:04] LABS: Ionized Calcium 4.8 mg/dL (4.5-5.3)
[2017-06-12 04:14] LABS: Albumin 3.6 g/dL (3.5-5.0); Calcium 8.4 mg/dL (8.4-10.2); Magnesium 2.7 mg/dL (1.6-2.3); Phosphorus 2.7 mg/dL (2.5-4.5); Potassium 4.6 mmol/L (3.5-5.1); Total Bilirubin 1.2 mg/dL (0.2-1.3); Total Protein 5.4 g/dL (6.3-8.2)
[2017-06-12 05:21] LABS: Glucose,Whole Blood 112 mg/dL (75-99)
[2017-06-12] MEDS: HYDROcodone/APAP 5-325MG 1 EACH TAB PO PRN ×3 (06:10→23:43)
[2017-06-12 07:00] LABS: Glucose,Whole Blood 122 mg/dL (75-99)
[2017-06-12] MEDS: HEPARIN SODIUM,PORCINE 5,000 UNIT/ML 1 ML VIAL SQ SCH ×3 (08:26→23:43)
[2017-06-12] MEDS: ASPIRIN 325 MG TAB PO SCH (08:27)
[2017-06-12] MEDS: ATORVASTATIN 40 MG TAB PO SCH (08:27)
[2017-06-12] MEDS: AMIODARONE 200 MG TAB PO SCH ×2 (08:27→20:50)
[2017-06-12] MEDS: CHLORHEXIDINE GLUCONATE 15 ML CUP MUCOUS MEM SCH ×2 (08:27→20:53)
[2017-06-12] MEDS: PANTOPRAZOLE 40 MG/10 ML VIAL IVP SCH (08:27)
--- NOTE | 2017-06-12 08:41 | P.PN ---
Subjective Progress Note Date: 06/11/17 Principal diagnosis: Multivessel coronary artery disease, mitral valve regurgitation, acute on chronic congestive heart failure with systolic dysfunction with the preoperative ejection fraction of 25-30%, cardiomyopathy, paroxysmal atrial fibrillation with home Xarelto for anticoagulation, history of Crohn's disease, hypertension, history of nephrolithiasis, BPH and COPD with a preoperative FEV1 of 50% of predicted. POD #1 urgent coronary artery bypass grafting 4 with left internal mammary artery graft to the left anterior descending coronary artery, a reverse saphenous vein graft to the obtuse marginal, high diagonal and right coronary arteries. Mitral valve annuloplasty with a #26 physio-Ring. Modified Schuler maze procedure with complete left sided lesion set and ligation of the left atrial appendage. Endoscopic vein harvesting of his left and right greater saphenous vein. Intraoperative transesophageal echocardiogram by anesthesia. POD #1 sternal reexploration for bleeding, for postoperative hemorrhage. Acute blood loss anemia, an expected outcome of surgery. The patient remains intubated with mechanical ventilator support. He is in no acute distress. He is opening his eyes with verbal stimuli and following commands appropriately, moving all 4 extremities appropriately. He is shaking his head "no" when asked if he is having any pain. Objective - Vital Signs Vital signs: Vital Signs Temp 97.9 F 06/11/17 04:00 Pulse 72 06/11/17 07:50 Resp 21 06/11/17 07:00 BP 94/47 06/10/17 21:48 Pulse Ox 96 06/11/17 07:00 Intake & Output 06/10/17 06/11/17 06/11/17 18:59 06:59 18:59 Intake Total 2584.586 6359.259 555 Output Total 5218 4309 160 Balance -2633.414 2050.259 395 Weight 89.7 kg Intake: IV 183 1801 555 Albumin Human 5% 250 ml 1050 In Empty Bag 1 bag @ 250 mls/hr IVPB Q1HR PRN Rx#: [id number] C/o injectate 220 40 Lactated Ringers 1,000 ml 150 450 506 @ 50 mls/hr IV .Q20H [facility] Rx#:[id number] pressure bags 81 9 Intake, IV Titration 10.586 115.259 Amount Clevidipine Butyrate 25 40.900 mg In Empty Bag 1 bag @ 1 MG/HR 2 mls/hr IV .Q24H [facility] Rx#:[id number] Insulin Regular 100 unit 6.133 10.458 In Sodium Chloride 0.9% 100 ml @ Per Protocol IV .Q0M [facility] Rx#:[id number] Norepinephrin 16 mg-0.9% 4.453 1.719 Ns Pmx 16 mg In 250 ml @ Titrate IV .Q0M [facility] Rx#: [id number] Propofol 1,000 mg In 62.182 Empty Bag 1 bag @ Titrate IV .Q0M [facility] Rx#: [id number] Blood Product 2391 4443 Cryoprecipitate Unit 10 [id number] Cryoprecipitate Unit 10 [id number] Cryoprecipitate Unit 10 [id number] Cryoprecipitate Unit 10 [id number] Cryoprecipitate Unit 10 [id number] Cryoprecipitate Unit 10 [id number] Cryoprecipitate Unit 10 [id number] Cryoprecipitate Unit 10 [id number] Cryoprecipitate Unit 10 [id number] Cryoprecipitate Unit 10 [id number] Ffp 24 Cpd Unit 336 [id number] Ffp 24 Cpd Unit 332 [id number] Ffp 24 Cpd Unit 297 [id number] Ffp 24 Cpd Unit 310 [id number] Platelet Pheresis Acda1 302 Unit [id number] Platelet Pheresis Acda1 306 Unit [id number] Platelet Pheresis Acda2 194 Unit [id number] Rc As-1 Unit 310 [id number] Rc As-1 Unit 310 [id number] Rc As-1 Unit 310 [id number] Rc As-1 Unit 310 [id number] Rc As-1 Unit 310 [id number] Output: Chest Tube Drainage 2270 2238 100 Right/Left Mediastinal 1750 1290 50 Right/Left Pleural Chest 520 948 50 Tube Urine 748 1621 60 Estimated Blood Loss 2200 450 Other: Voiding Method Indwelling Catheter Indwelling Catheter ABP, PAP, CO, CI - Last Documented Arterial Blood Pressure 118/47 Pulmonary Artery Pressure 42/20 Cardiac Output 6.6 Cardiac Index 3.3 - Constitutional General appearance: Present: cooperative, no acute distress, obese - Neck Details: No JVD, no lymphadenopathy. Right IJ Cordis with Mcintosh-Dannie catheter, patent and functioning. - Respiratory Details: Lungs sounds essentially clear throughout, diminished bilateral bases. Respirations are symmetrical and nonlabored with mechanical ventilator support. Current ventilator settings are as follows: SIMV 14, TV 500, FiO2 40%, PS 5, PEEP 5. Oxygen saturations are 100% on these current ventilator settings. Left , right pleural and mediastinal chest tubes remain to low continuous wall suction -20 cm H2O. No air leak present. Chest tubes are draining thin serosanguineous drainage. Left and right pleural chest tubes drained 950 mL output in the last 8 hours, 1470 mL since surgery. Mediastinal chest tubes drained 600 mL output the last 8 hours, 3040 mL output since surgery. - Cardiovascular Details: Regular rhythm and rate. S1 and S2 present, negative for S3, gallop or murmur. Bedside telemetry showing normal sinus rhythm with rare PVC heart rate 69. Atrial and ventricular epicardial pacemaker wires intact to backup generator with a VVI of 50. Sternum is stable. Heart hugger's in place. Knee-high SANJEEV hose and sequential compression devices in place to his bilateral lower extremities. Current cardiac output 5.0, cardiac index 2.5, PA pressures 46/22 , CVP 16. Dopamine drip remains at 5 mcg/kg/m. Right radial a line intact and functioning. No edema present. - Gastrointestinal Gastrointestinal Comment(s): Abdomen is soft, nontender nondistended. Hypoactive bowel sounds present all 4 abdominal quadrants. OG tube in place draining bile-colored drainage. 50 mL output since surgery. - Genitourinary Genitourinary Comment(s): Mary catheter for accurate I&O. Draining clear jessika urine. Adequate urine output, 1000 L output the last 8 hours. - Integumentary Integumentary Comment(s): Skin is warm and dry. No clubbing or cyanosis present. No rash or abnormal pigmentation. Midline sternal incision clean dry and approximated. No drainage or redness present. Dressing clean and dry. Bilateral lower extremity EVH sites clean dry and approximated. No drainage or redness present. Slight ecchymosis to his bilateral thighs. - Neurologic Neurologic: Present: CNII-XII intact - Musculoskeletal Musculoskeletal: Present: generalized weakness, strength equal bilaterally - Psychiatric Psychiatric Comment(s): Patient remains sedated with propofol drip at 20 mcg/kg/m. Moving all 4 tremors appropriately. Shaking his head appropriately to yes and no questions. Psychiatric: Present: appropriate affect - Allied health notes Allied health notes reviewed: nursing - Labs CBC & Chem 7: 06/11/17 04:10 06/11/17 04:10 Labs: Abnormal Lab Results - Last 24 Hours (Table) 06/09/17 06/10/17 06/10/17 Range/Units 09:03 08:29 10:14 WBC (3.8-10.6) k/uL RBC (4.30-5.90) m/uL Hgb (13.0-17.5) gm/dL Hct (39.0-53.0) % MCHC (31.0-37.0) g/dL Plt Count (150-450) k/uL Neutrophils # (1.3-7.7) k/uL Neutrophils # (Manual) (1.3-7.7) k/uL Lymphocytes # (1.0-4.8) k/uL PT (9.0-12.0) sec INR (<1.2) APTT (22.0-30.0) sec Fibrinogen (200-500) mg/dL ABG pH 7.47 H (7.35-7.45) ABG pCO2 59 H (35-45) mmHg ABG pO2 >420 H 113 H (83-108) mmHg ABG HCO3 32 H 33 H (21-25) mmol/L ABG Total CO2 34 H 35 H (19-24) mmol/L ABG O2 Saturation 98.4 H 97.7 H (94-97) % ABG Hematocrit 32 L 30 L (34.0-46.0) % ABG Potassium (3.4-4.5) mmol/L ABG Ionized Calcium (4.5-5.3) mg/dL ABG Glucose 114 H (75-99) mg/dL Hemoglobin 10.3 L 9.9 L (13.0-17.5) gm/dL Sodium (137-145) mmol/L Chloride (98-107) mmol/L BUN (9-20) mg/dL Glucose (74-99) mg/dL POC Glucose (mg/dL) (75-99) mg/dL Calcium (8.4-10.2) mg/dL Magnesium (1.6-2.3) mg/dL Total Bilirubin (0.2-1.3) mg/dL AST (17-59) U/L Alkaline Phosphatase (38-126) U/L Total Protein (6.3-8.2) g/dL Albumin (3.5-5.0) g/dL Arterial Blood Potassium (3.4-4.5) mmol/L Arterial Blood Glucose 114 H (75-99) mg/dL Urine Protein (Negative) Urine Blood (Negative) Urine RBC (0-5) /hpf Urine WBC (0-5) /hpf Urine WBC Clumps (None) /hpf Urine Bacteria (None) /hpf Urine Mucus (None) /hpf Urine Yeast (Budding) (None) /hpf Crossmatch See Detail 06/10/17 06/10/17 06/10/17 Range/Units 10:51 11:29 12:02 WBC (3.8-10.6) k/uL RBC (4.30-5.90) m/uL Hgb (13.0-17.5) gm/dL Hct (39.0-53.0) % MCHC (31.0-37.0) g/dL Plt Count (150-450) k/uL Neutrophils # (1.3-7.7) k/uL Neutrophils # (Manual) (1.3-7.7) k/uL Lymphocytes # (1.0-4.8) k/uL PT (9.0-12.0) sec INR (<1.2) APTT (22.0-30.0) sec Fibrinogen (200-500) mg/dL ABG pH (7.35-7.45) ABG pCO2 47 H 50 H (35-45) mmHg ABG pO2 377 H 288 H 252 H (83-108) mmHg ABG HCO3 29 H 30 H 30 H (21-25) mmol/L ABG Total CO2 30 H 31 H 32 H (19-24) mmol/L ABG O2 Saturation 99.7 H 98.6 H 99.5 H (94-97) % ABG Hematocrit 25 L 26 L 25 L (34.0-46.0) % ABG Potassium (3.4-4.5) mmol/L ABG Ionized Calcium 4.0 L 4.4 L 4.4 L (4.5-5.3) mg/dL ABG Glucose 100 H 122 H 141 H (75-99) mg/dL Hemoglobin 8.2 L 8.6 L 8.1 L (13.0-17.5) gm/dL Sodium (137-145) mmol/L Chloride (98-107) mmol/L BUN (9-20) mg/dL Glucose (74-99) mg/dL POC Glucose (mg/dL) (75-99) mg/dL Calcium (8.4-10.2) mg/dL Magnesium (1.6-2.3) mg/dL Total Bilirubin (0.2-1.3) mg/dL AST (17-59) U/L Alkaline Phosphatase (38-126) U/L Total Protein (6.3-8.2) g/dL Albumin (3.5-5.0) g/dL Arterial Blood Potassium (3.4-4.5) mmol/L Arterial Blood Glucose 100 H 122 H 141 H (75-99) mg/dL Urine Protein (Negative) Urine Blood (Negative) Urine RBC (0-5) /hpf Urine WBC (0-5) /hpf Urine WBC Clumps (None) /hpf Urine Bacteria (None) /hpf Urine Mucus (None) /hpf Urine Yeast (Budding) (None) /hpf Crossmatch 06/10/17 06/10/17 06/10/17 Range/Units 12:38 14:12 15:35 WBC 11.0 H (3.8-10.6) k/uL RBC 2.56 L (4.30-5.90) m/uL Hgb 7.1 L D (13.0-17.5) gm/dL Hct 22.9 L (39.0-53.0) % MCHC (31.0-37.0) g/dL Plt Count 138 L (150-450) k/uL Neutrophils # 10.2 H (1.3-7.7) k/uL Neutrophils # (Manual) (1.3-7.7) k/uL Lymphocytes # 0.5 L (1.0-4.8) k/uL PT (9.0-12.0) sec INR (<1.2) APTT (22.0-30.0) sec Fibrinogen (200-500) mg/dL ABG pH (7.35-7.45) ABG pCO2 46 H (35-45) mmHg ABG pO2 297 H 127 H (83-108) mmHg ABG HCO3 29 H 26 H (21-25) mmol/L ABG Total CO2 30 H 28 H (19-24) mmol/L ABG O2 Saturation 99.7 H 98.5 H (94-97) % ABG Hematocrit 26 L 24 L (34.0-46.0) % ABG Potassium 4.7 H (3.4-4.5) mmol/L ABG Ionized Calcium 4.3 L 4.2 L (4.5-5.3) mg/dL ABG Glucose 143 H 119 H (75-99) mg/dL Hemoglobin 8.3 L 7.9 L (13.0-17.5) gm/dL Sodium (137-145) mmol/L Chloride (98-107) mmol/L BUN (9-20) mg/dL Glucose (74-99) mg/dL POC Glucose (mg/dL) (75-99) mg/dL Calcium (8.4-10.2) mg/dL Magnesium (1.6-2.3) mg/dL Total Bilirubin (0.2-1.3) mg/dL AST (17-59) U/L Alkaline Phosphatase (38-126) U/L Total Protein (6.3-8.2) g/dL Albumin (3.5-5.0) g/dL Arterial Blood Potassium 4.7 H (3.4-4.5) mmol/L Arterial Blood Glucose 143 H 119 H (75-99) mg/dL Urine Protein (Negative) Urine Blood (Negative) Urine RBC (0-5) /hpf Urine WBC (0-5) /hpf Urine WBC Clumps (None) /hpf Urine Bacteria (None) /hpf Urine Mucus (None) /hpf Urine Yeast (Budding) (None) /hpf Crossmatch 06/10/17 06/10/17 06/10/17 Range/Units 15:35 15:35 15:38 WBC (3.8-10.6) k/uL RBC (4.30-5.90) m/uL Hgb (13.0-17.5) gm/dL Hct (39.0-53.0) % MCHC (31.0-37.0) g/dL Plt Count (150-450) k/uL Neutrophils # (1.3-7.7) k/uL Neutrophils # (Manual) (1.3-7.7) k/uL Lymphocytes # (1.0-4.8) k/uL PT 14.1 H (9.0-12.0) sec INR 1.5 H (<1.2) APTT 40.6 H (22.0-30.0) sec Fibrinogen (200-500) mg/dL ABG pH (7.35-7.45) ABG pCO2 (35-45) mmHg ABG pO2 (83-108) mmHg ABG HCO3 (21-25) mmol/L ABG Total CO2 (19-24) mmol/L ABG O2 Saturation (94-97) % ABG Hematocrit (34.0-46.0) % ABG Potassium (3.4-4.5) mmol/L ABG Ionized Calcium (4.5-5.3) mg/dL ABG Glucose (75-99) mg/dL Hemoglobin (13.0-17.5) gm/dL Sodium (137-145) mmol/L Chloride 110 H (98-107) mmol/L BUN 21 H (9-20) mg/dL Glucose (74-99) mg/dL POC Glucose (mg/dL) 113 H (75-99) mg/dL Calcium 7.4 L (8.4-10.2) mg/dL Magnesium 3.9 H (1.6-2.3) mg/dL Total Bilirubin (0.2-1.3) mg/dL AST (17-59) U/L Alkaline Phosphatase 30 L (38-126) U/L Total Protein 4.5 L (6.3-8.2) g/dL Albumin 3.1 L (3.5-5.0) g/dL Arterial Blood Potassium (3.4-4.5) mmol/L Arterial Blood Glucose (75-99) mg/dL Urine Protein (Negative) Urine Blood (Negative) Urine RBC (0-5) /hpf Urine WBC (0-5) /hpf Urine WBC Clumps (None) /hpf Urine Bacteria (None) /hpf Urine Mucus (None) /hpf Urine Yeast (Budding) (None) /hpf Crossmatch 06/10/17 06/10/17 06/10/17 Range/Units 15:58 16:00 16:20 WBC (3.8-10.6) k/uL RBC 2.48 L (4.30-5.90) m/uL Hgb 6.9 L* (13.0-17.5) gm/dL Hct 22.3 L (39.0-53.0) % MCHC 30.7 L (31.0-37.0) g/dL Plt Count 129 L (150-450) k/uL Neutrophils # (1.3-7.7) k/uL Neutrophils # (Manual) 7.90 H (1.3-7.7) k/uL Lymphocytes # (1.0-4.8) k/uL PT (9.0-12.0) sec INR (<1.2) APTT (22.0-30.0) sec Fibrinogen (200-500) mg/dL ABG pH 7.30 L (7.35-7.45) ABG pCO2 53 H (35-45) mmHg ABG pO2 >400 H (83-108) mmHg ABG HCO3 26 H (21-25) mmol/L ABG Total CO2 28 H (19-24) mmol/L ABG O2 Saturation 99.4 H (94-97) % ABG Hematocrit (34.0-46.0) % ABG Potassium (3.4-4.5) mmol/L ABG Ionized Calcium (4.5-5.3) mg/dL ABG Glucose (75-99) mg/dL Hemoglobin (13.0-17.5) gm/dL Sodium (137-145) mmol/L Chloride (98-107) mmol/L BUN (9-20) mg/dL Glucose (74-99) mg/dL POC Glucose (mg/dL) 105 H (75-99) mg/dL Calcium (8.4-10.2) mg/dL Magnesium (1.6-2.3) mg/dL Total Bilirubin (0.2-1.3) mg/dL AST (17-59) U/L Alkaline Phosphatase (38-126) U/L Total Protein (6.3-8.2) g/dL Albumin (3.5-5.0) g/dL Arterial Blood Potassium (3.4-4.5) mmol/L Arterial Blood Glucose (75-99) mg/dL Urine Protein (Negative) Urine Blood (Negative) Urine RBC (0-5) /hpf Urine WBC (0-5) /hpf Urine WBC Clumps (None) /hpf Urine Bacteria (None) /hpf Urine Mucus (None) /hpf Urine Yeast (Budding) (None) /hpf Crossmatch 06/10/17 06/10/17 06/10/17 Range/Units 16:50 17:47 18:13 WBC (3.8-10.6) k/uL RBC (4.30-5.90) m/uL Hgb (13.0-17.5) gm/dL Hct (39.0-53.0) % MCHC (31.0-37.0) g/dL Plt Count (150-450) k/uL Neutrophils # (1.3-7.7) k/uL Neutrophils # (Manual) (1.3-7.7) k/uL Lymphocytes # (1.0-4.8) k/uL PT (9.0-12.0) sec INR (<1.2) APTT (22.0-30.0) sec Fibrinogen (200-500) mg/dL ABG pH (7.35-7.45) ABG pCO2 (35-45) mmHg ABG pO2 (83-108) mmHg ABG HCO3 (21-25) mmol/L ABG Total CO2 (19-24) mmol/L ABG O2 Saturation (94-97) % ABG Hematocrit (34.0-46.0) % ABG Potassium (3.4-4.5) mmol/L ABG Ionized Calcium (4.5-5.3) mg/dL ABG Glucose (75-99) mg/dL Hemoglobin (13.0-17.5) gm/dL Sodium (137-145) mmol/L Chloride (98-107) mmol/L BUN (9-20) mg/dL Glucose (74-99) mg/dL POC Glucose (mg/dL) 184 H 243 H (75-99) mg/dL Calcium (8.4-10.2) mg/dL Magnesium (1.6-2.3) mg/dL Total Bilirubin (0.2-1.3) mg/dL AST (17-59) U/L Alkaline Phosphatase (38-126) U/L Total Protein (6.3-8.2) g/dL Albumin (3.5-5.0) g/dL Arterial Blood Potassium (3.4-4.5) mmol/L Arterial Blood Glucose (75-99) mg/dL Urine Protein 2+ H (Negative) Urine Blood Large H (Negative) Urine RBC >182 H (0-5) /hpf Urine WBC 89 H (0-5) /hpf Urine WBC Clumps Many H (None) /hpf Urine Bacteria Rare H (None) /hpf Urine Mucus Rare H (None) /hpf Urine Yeast (Budding) Occasional H (None) /hpf Crossmatch 06/10/17 06/10/17 06/10/17 Range/Units 18:59 19:00 19:00 WBC (3.8-10.6) k/uL RBC (4.30-5.90) m/uL Hgb (13.0-17.5) gm/dL Hct (39.0-53.0) % MCHC (31.0-37.0) g/dL Plt Count (150-450) k/uL Neutrophils # (1.3-7.7) k/uL Neutrophils # (Manual) (1.3-7.7) k/uL Lymphocytes # (1.0-4.8) k/uL PT 12.3 H (9.0-12.0) sec INR 1.3 H (<1.2) APTT 41.1 H (22.0-30.0) sec Fibrinogen 119 L (200-500) mg/dL ABG pH (7.35-7.45) ABG pCO2 (35-45) mmHg ABG pO2 (83-108) mmHg ABG HCO3 (21-25) mmol/L ABG Total CO2 (19-24) mmol/L ABG O2 Saturation (94-97) % ABG Hematocrit (34.0-46.0) % ABG Potassium (3.4-4.5) mmol/L ABG Ionized Calcium (4.5-5.3) mg/dL ABG Glucose (75-99) mg/dL Hemoglobin (13.0-17.5) gm/dL Sodium (137-145) mmol/L Chloride (98-107) mmol/L BUN (9-20) mg/dL Glucose 174 H (74-99) mg/dL POC Glucose (mg/dL) 199 H (75-99) mg/dL Calcium 7.2 L (8.4-10.2) mg/dL Magnesium 3.4 H (1.6-2.3) mg/dL Total Bilirubin 1.4 H (0.2-1.3) mg/dL AST (17-59) U/L Alkaline Phosphatase (38-126) U/L Total Protein 5.0 L (6.3-8.2) g/dL Albumin (3.5-5.0) g/dL Arterial Blood Potassium (3.4-4.5) mmol/L Arterial Blood Glucose (75-99) mg/dL Urine Protein (Negative) Urine Blood (Negative) Urine RBC (0-5) /hpf Urine WBC (0-5) /hpf Urine WBC Clumps (None) /hpf Urine Bacteria (None) /hpf Urine Mucus (None) /hpf Urine Yeast (Budding) (None) /hpf Crossmatch 06/10/17 06/10/17 06/10/17 Range/Units 19:00 20:28 21:04 WBC (3.8-10.6) k/uL RBC 2.52 L (4.30-5.90) m/uL Hgb 7.1 L (13.0-17.5) gm/dL Hct 22.5 L (39.0-53.0) % MCHC (31.0-37.0) g/dL Plt Count 130 L (150-450) k/uL Neutrophils # 7.8 H (1.3-7.7) k/uL Neutrophils # (Manual) (1.3-7.7) k/uL Lymphocytes # 0.3 L (1.0-4.8) k/uL PT (9.0-12.0) sec INR (<1.2) APTT (22.0-30.0) sec Fibrinogen (200-500) mg/dL ABG pH 7.34 L (7.35-7.45) ABG pCO2 47 H 46 H (35-45) mmHg ABG pO2 >420 H 197 H (83-108) mmHg ABG HCO3 27 H (21-25) mmol/L ABG Total CO2 28 H 26 H (19-24) mmol/L ABG O2 Saturation 99.8 H 99.5 H (94-97) % ABG Hematocrit 22 L 22 L (34.0-46.0) % ABG Potassium 4.7 H (3.4-4.5) mmol/L ABG Ionized Calcium 4.0 L 4.1 L (4.5-5.3) mg/dL ABG Glucose 138 H 129 H (75-99) mg/dL Hemoglobin 7.0 L* 7.3 L (13.0-17.5) gm/dL Sodium (137-145) mmol/L Chloride (98-107) mmol/L BUN (9-20) mg/dL Glucose (74-99) mg/dL POC Glucose (mg/dL) (75-99) mg/dL Calcium (8.4-10.2) mg/dL Magnesium (1.6-2.3) mg/dL Total Bilirubin (0.2-1.3) mg/dL AST (17-59) U/L Alkaline Phosphatase (38-126) U/L Total Protein (6.3-8.2) g/dL Albumin (3.5-5.0) g/dL Arterial Blood Potassium 4.7 H (3.4-4.5) mmol/L Arterial Blood Glucose 138 H 129 H (75-99) mg/dL Urine Protein (Negative) Urine Blood (Negative) Urine RBC (0-5) /hpf Urine WBC (0-5) /hpf Urine WBC Clumps (None) /hpf Urine Bacteria (None) /hpf Urine Mucus (None) /hpf Urine Yeast (Budding) (None) /hpf Crossmatch 06/10/17 06/10/17 06/10/17 Range/Units 21:28 22:15 22:15 WBC (3.8-10.6) k/uL RBC 2.72 L (4.30-5.90) m/uL Hgb 7.8 L (13.0-17.5) gm/dL Hct 24.2 L (39.0-53.0) % MCHC (31.0-37.0) g/dL Plt Count 135 L (150-450) k/uL Neutrophils # (1.3-7.7) k/uL Neutrophils # (Manual) (1.3-7.7) k/uL Lymphocytes # (1.0-4.8) k/uL PT 12.4 H (9.0-12.0) sec INR 1.3 H (<1.2) APTT (22.0-30.0) sec Fibrinogen (200-500) mg/dL ABG pH (7.35-7.45) ABG pCO2 (35-45) mmHg ABG pO2 193 H (83-108) mmHg ABG HCO3 (21-25) mmol/L ABG Total CO2 26 H (19-24) mmol/L ABG O2 Saturation 99.6 H (94-97) % ABG Hematocrit 22 L (34.0-46.0) % ABG Potassium 4.6 H (3.4-4.5) mmol/L ABG Ionized Calcium 4.1 L (4.5-5.3) mg/dL ABG Glucose 125 H (75-99) mg/dL Hemoglobin 7.0 L* (13.0-17.5) gm/dL Sodium (137-145) mmol/L Chloride (98-107) mmol/L BUN (9-20) mg/dL Glucose (74-99) mg/dL POC Glucose (mg/dL) (75-99) mg/dL Calcium (8.4-10.2) mg/dL Magnesium (1.6-2.3) mg/dL Total Bilirubin (0.2-1.3) mg/dL AST (17-59) U/L Alkaline Phosphatase (38-126) U/L Total Protein (6.3-8.2) g/dL Albumin (3.5-5.0) g/dL Arterial Blood Potassium 4.6 H (3.4-4.5) mmol/L Arterial Blood Glucose 125 H (75-99) mg/dL Urine Protein (Negative) Urine Blood (Negative) Urine RBC (0-5) /hpf Urine WBC (0-5) /hpf Urine WBC Clumps (None) /hpf Urine Bacteria (None) /hpf Urine Mucus (None) /hpf Urine Yeast (Budding) (None) /hpf Crossmatch 06/10/17 06/10/17 06/10/17 Range/Units 22:15 22:18 23:05 WBC (3.8-10.6) k/uL RBC (4.30-5.90) m/uL Hgb (13.0-17.5) gm/dL Hct (39.0-53.0) % MCHC (31.0-37.0) g/dL Plt Count (150-450) k/uL Neutrophils # (1.3-7.7) k/uL Neutrophils # (Manual) (1.3-7.7) k/uL Lymphocytes # (1.0-4.8) k/uL PT (9.0-12.0) sec INR (<1.2) APTT (22.0-30.0) sec Fibrinogen (200-500) mg/dL ABG pH (7.35-7.45) ABG pCO2 (35-45) mmHg ABG pO2 (83-108) mmHg ABG HCO3 (21-25) mmol/L ABG Total CO2 (19-24) mmol/L ABG O2 Saturation (94-97) % ABG Hematocrit (34.0-46.0) % ABG Potassium (3.4-4.5) mmol/L ABG Ionized Calcium (4.5-5.3) mg/dL ABG Glucose (75-99) mg/dL Hemoglobin (13.0-17.5) gm/dL Sodium (137-145) mmol/L Chloride 108 H (98-107) mmol/L BUN (9-20) mg/dL Glucose 114 H (74-99) mg/dL POC Glucose (mg/dL) 124 H 109 H (75-99) mg/dL Calcium 7.8 L (8.4-10.2) mg/dL Magnesium 3.1 H (1.6-2.3) mg/dL Total Bilirubin 1.9 H (0.2-1.3) mg/dL AST (17-59) U/L Alkaline Phosphatase (38-126) U/L Total Protein 4.9 L (6.3-8.2) g/dL Albumin (3.5-5.0) g/dL Arterial Blood Potassium (3.4-4.5) mmol/L Arterial Blood Glucose (75-99) mg/dL Urine Protein (Negative) Urine Blood (Negative) Urine RBC (0-5) /hpf Urine WBC (0-5) /hpf Urine WBC Clumps (None) /hpf Urine Bacteria (None) /hpf Urine Mucus (None) /hpf Urine Yeast (Budding) (None) /hpf Crossmatch 06/11/17 06/11/17 06/11/17 Range/Units 00:08 01:19 01:20 WBC 14.4 H (3.8-10.6) k/uL RBC 3.04 L (4.30-5.90) m/uL Hgb 8.4 L (13.0-17.5) gm/dL Hct 26.9 L (39.0-53.0) % MCHC (31.0-37.0) g/dL Plt Count (150-450) k/uL Neutrophils # 13.7 H (1.3-7.7) k/uL Neutrophils # (Manual) (1.3-7.7) k/uL Lymphocytes # 0.2 L (1.0-4.8) k/uL PT (9.0-12.0) sec INR (<1.2) APTT (22.0-30.0) sec Fibrinogen (200-500) mg/dL ABG pH (7.35-7.45) ABG pCO2 (35-45) mmHg ABG pO2 (83-108) mmHg ABG HCO3 (21-25) mmol/L ABG Total CO2 (19-24) mmol/L ABG O2 Saturation (94-97) % ABG Hematocrit (34.0-46.0) % ABG Potassium (3.4-4.5) mmol/L ABG Ionized Calcium (4.5-5.3) mg/dL ABG Glucose (75-99) mg/dL Hemoglobin (13.0-17.5) gm/dL Sodium (137-145) mmol/L Chloride (98-107) mmol/L BUN (9-20) mg/dL Glucose (74-99) mg/dL POC Glucose (mg/dL) 107 H 124 H (75-99) mg/dL Calcium (8.4-10.2) mg/dL Magnesium (1.6-2.3) mg/dL Total Bilirubin (0.2-1.3) mg/dL AST (17-59) U/L Alkaline Phosphatase (38-126) U/L Total Protein (6.3-8.2) g/dL Albumin (3.5-5.0) g/dL Arterial Blood Potassium (3.4-4.5) mmol/L Arterial Blood Glucose (75-99) mg/dL Urine Protein (Negative) Urine Blood (Negative) Urine RBC (0-5) /hpf Urine WBC (0-5) /hpf Urine WBC Clumps (None) /hpf Urine Bacteria (None) /hpf Urine Mucus (None) /hpf Urine Yeast (Budding) (None) /hpf Crossmatch 06/11/17 06/11/17 06/11/17 Range/Units 02:14 02:39 03:15 WBC (3.8-10.6) k/uL RBC (4.30-5.90) m/uL Hgb (13.0-17.5) gm/dL Hct (39.0-53.0) % MCHC (31.0-37.0) g/dL Plt Count (150-450) k/uL Neutrophils # (1.3-7.7) k/uL Neutrophils # (Manual) (1.3-7.7) k/uL Lymphocytes # (1.0-4.8) k/uL PT (9.0-12.0) sec INR (<1.2) APTT (22.0-30.0) sec Fibrinogen (200-500) mg/dL ABG pH (7.35-7.45) ABG pCO2 (35-45) mmHg ABG pO2 58 L (83-108) mmHg ABG HCO3 26 H (21-25) mmol/L ABG Total CO2 27 H (19-24) mmol/L ABG O2 Saturation 90.7 L (94-97) % ABG Hematocrit (34.0-46.0) % ABG Potassium (3.4-4.5) mmol/L ABG Ionized Calcium (4.5-5.3) mg/dL ABG Glucose (75-99) mg/dL Hemoglobin (13.0-17.5) gm/dL Sodium (137-145) mmol/L Chloride (98-107) mmol/L BUN (9-20) mg/dL Glucose (74-99) mg/dL POC Glucose (mg/dL) 129 H 128 H (75-99) mg/dL Calcium (8.4-10.2) mg/dL Magnesium (1.6-2.3) mg/dL Total Bilirubin (0.2-1.3) mg/dL AST (17-59) U/L Alkaline Phosphatase (38-126) U/L Total Protein (6.3-8.2) g/dL Albumin (3.5-5.0) g/dL Arterial Blood Potassium (3.4-4.5) mmol/L Arterial Blood Glucose (75-99) mg/dL Urine Protein (Negative) Urine Blood (Negative) Urine RBC (0-5) /hpf Urine WBC (0-5) /hpf Urine WBC Clumps (None) /hpf Urine Bacteria (None) /hpf Urine Mucus (None) /hpf Urine Yeast (Budding) (None) /hpf Crossmatch 06/11/17 06/11/17 06/11/17 Range/Units 04:02 04:10 04:10 WBC 12.6 H (3.8-10.6) k/uL RBC 2.78 L (4.30-5.90) m/uL Hgb 8.0 L (13.0-17.5) gm/dL Hct 24.4 L (39.0-53.0) % MCHC (31.0-37.0) g/dL Plt Count (150-450) k/uL Neutrophils # 11.9 H (1.3-7.7) k/uL Neutrophils # (Manual) (1.3-7.7) k/uL Lymphocytes # 0.2 L (1.0-4.8) k/uL PT (9.0-12.0) sec INR (<1.2) APTT (22.0-30.0) sec Fibrinogen (200-500) mg/dL ABG pH (7.35-7.45) ABG pCO2 (35-45) mmHg ABG pO2 (83-108) mmHg ABG HCO3 (21-25) mmol/L ABG Total CO2 (19-24) mmol/L ABG O2 Saturation (94-97) % ABG Hematocrit (34.0-46.0) % ABG Potassium (3.4-4.5) mmol/L ABG Ionized Calcium (4.5-5.3) mg/dL ABG Glucose (75-99) mg/dL Hemoglobin (13.0-17.5) gm/dL Sodium 146 H (137-145) mmol/L Chloride 109 H (98-107) mmol/L BUN 21 H (9-20) mg/dL Glucose 110 H (74-99) mg/dL POC Glucose (mg/dL) 117 H (75-99) mg/dL Calcium 7.7 L (8.4-10.2) mg/dL Magnesium 2.9 H (1.6-2.3) mg/dL Total Bilirubin (0.2-1.3) mg/dL AST 65 H (17-59) U/L Alkaline Phosphatase (38-126) U/L Total Protein 5.0 L (6.3-8.2) g/dL Albumin (3.5-5.0) g/dL Arterial Blood Potassium (3.4-4.5) mmol/L Arterial Blood Glucose (75-99) mg/dL Urine Protein (Negative) Urine Blood (Negative) Urine RBC (0-5) /hpf Urine WBC (0-5) /hpf Urine WBC Clumps (None) /hpf Urine Bacteria (None) /hpf Urine Mucus (None) /hpf Urine Yeast (Budding) (None) /hpf Crossmatch 06/11/17 06/11/17 06/11/17 Range/Units 04:10 05:08 06:12 WBC (3.8-10.6) k/uL RBC (4.30-5.90) m/uL Hgb (13.0-17.5) gm/dL Hct (39.0-53.0) % MCHC (31.0-37.0) g/dL Plt Count (150-450) k/uL Neutrophils # (1.3-7.7) k/uL Neutrophils # (Manual) (1.3-7.7) k/uL Lymphocytes # (1.0-4.8) k/uL PT 12.2 H (9.0-12.0) sec INR 1.3 H (<1.2) APTT (22.0-30.0) sec Fibrinogen (200-500) mg/dL ABG pH (7.35-7.45) ABG pCO2 (35-45) mmHg ABG pO2 (83-108) mmHg ABG HCO3 (21-25) mmol/L ABG Total CO2 (19-24) mmol/L ABG O2 Saturation (94-97) % ABG Hematocrit (34.0-46.0) % ABG Potassium (3.4-4.5) mmol/L ABG Ionized Calcium (4.5-5.3) mg/dL ABG Glucose (75-99) mg/dL Hemoglobin (13.0-17.5) gm/dL Sodium (137-145) mmol/L Chloride (98-107) mmol/L BUN (9-20) mg/dL Glucose (74-99) mg/dL POC Glucose (mg/dL) 110 H 119 H (75-99) mg/dL Calcium (8.4-10.2) mg/dL Magnesium (1.6-2.3) mg/dL Total Bilirubin (0.2-1.3) mg/dL AST (17-59) U/L Alkaline Phosphatase (38-126) U/L Total Protein (6.3-8.2) g/dL Albumin (3.5-5.0) g/dL Arterial Blood Potassium (3.4-4.5) mmol/L Arterial Blood Glucose (75-99) mg/dL Urine Protein (Negative) Urine Blood (Negative) Urine RBC (0-5) /hpf Urine WBC (0-5) /hpf Urine WBC Clumps (None) /hpf Urine Bacteria (None) /hpf Urine Mucus (None) /hpf Urine Yeast (Budding) (None) /hpf Crossmatch 06/11/17 06/11/17 06/11/17 Range/Units 06:55 07:42 08:00 WBC (3.8-10.6) k/uL RBC (4.30-5.90) m/uL Hgb (13.0-17.5) gm/dL Hct (39.0-53.0) % MCHC (31.0-37.0) g/dL Plt Count (150-450) k/uL Neutrophils # (1.3-7.7) k/uL Neutrophils # (Manual) (1.3-7.7) k/uL Lymphocytes # (1.0-4.8) k/uL PT (9.0-12.0) sec INR (<1.2) APTT (22.0-30.0) sec Fibrinogen (200-500) mg/dL ABG pH (7.35-7.45) ABG pCO2 (35-45) mmHg ABG pO2 80 L (83-108) mmHg ABG HCO3 26 H (21-25) mmol/L ABG Total CO2 27 H (19-24) mmol/L ABG O2 Saturation (94-97) % ABG Hematocrit (34.0-46.0) % ABG Potassium (3.4-4.5) mmol/L ABG Ionized Calcium (4.5-5.3) mg/dL ABG Glucose (75-99) mg/dL Hemoglobin (13.0-17.5) gm/dL Sodium (137-145) mmol/L Chloride (98-107) mmol/L BUN (9-20) mg/dL Glucose (74-99) mg/dL POC Glucose (mg/dL) 126 H 135 H (75-99) mg/dL Calcium (8.4-10.2) mg/dL Magnesium (1.6-2.3) mg/dL Total Bilirubin (0.2-1.3) mg/dL AST (17-59) U/L Alkaline Phosphatase (38-126) U/L Total Protein (6.3-8.2) g/dL Albumin (3.5-5.0) g/dL Arterial Blood Potassium (3.4-4.5) mmol/L Arterial Blood Glucose (75-99) mg/dL Urine Protein (Negative) Urine Blood (Negative) Urine RBC (0-5) /hpf Urine WBC (0-5) /hpf Urine WBC Clumps (None) /hpf Urine Bacteria (None) /hpf Urine Mucus (None) /hpf Urine Yeast (Budding) (None) /hpf Crossmatch Microbiology - Last 24 Hours (Table) 06/10/17 16:50 Urine Culture - Preliminary Urine,Catheterized - Imaging and Cardiology Chest x-ray: report reviewed, image reviewed Assessment and Plan (1) Acute systolic heart failure Current Visit: Yes Status: Acute Code(s): I50.21 - ACUTE SYSTOLIC ( CONGESTIVE) HEART FAILURE SNOMED Code(s): 220478126 (2) CAD (coronary artery disease) Current Visit: Yes Status: Acute Code(s): I25.10 - ATHSCL HEART DISEASE OF [place] CORONARY ARTERY W/O ANG PCTRS SNOMED Code(s): 83437113 (3) COPD (chronic obstructive pulmonary disease) with emphysema Current Visit: Yes Status: Acute Code(s): J43.9 - EMPHYSEMA, UNSPECIFIED SNOMED Code(s): 15210585 (4) New onset a-fib Current Visit: Yes Status: Acute Code(s): I48.91 - UNSPECIFIED ATRIAL FIBRILLATION SNOMED Code(s): 56151225 (5) Family history of heart disease Current Visit: Yes Status: Chronic Code(s): Z82.49 - FAMILY HX OF ISCHEM HEART DIS AND OTH DIS OF THE CIRC SYS SNOMED Code(s): 652216536 (6) History of Crohn's disease Current Visit: Yes Status: Chronic Code(s): Z87.19 - PERSONAL HISTORY OF OTHER DISEASES OF THE DIGESTIVE SYSTEM SNOMED Code(s): 026238227935165 (7) Mitral regurgitation Current Visit: Yes Status: Chronic Code(s): I34.0 - NONRHEUMATIC MITRAL ( VALVE) INSUFFICIENCY SNOMED Code(s): 72401653 (8) Tracheobronchitis Current Visit: Yes Status: Chronic Code(s): J40 - BRONCHITIS, NOT SPECIFIED ACUTE OR CHRONIC SNOMED Code(s): 09702303 (9) Tobacco dependence in remission Current Visit: No Status: Resolved Code(s): F17.201 - NICOTINE DEPENDENCE, UNSPECIFIED, IN REMISSION SNOMED Code(s): 829743049 Plan: 1. Continue aspirin, statin, subcu heparin, beta billy. Will increase beta billy therapy as tolerated. 2. Wean Cleviprex as tolerated. Discontinue nitroglycerin drip. 3. Wean to extubate, pulmonary recommendations per Dr. Harmon. 4. Place pacemaker generator to VVI backup with a rate of 50. 5. We will start amiodarone 400 mg by mouth twice a day tomorrow 06/12/2017 for atrial fibrillation prophylaxis, patient has history of preoperative atrial fibrillation. 6. GI/DVT prophylaxis. 7. Will monitor daily labs and x-rays. 8. Insulin drip/diabetic management per Dr. Huertas. 9. Continue dopamine decreased to 3 mcg/kg/m. 10. More recommendations to follow based on patient's clinical course. Time with Patient: Greater than 30
[2017-06-12 08:52] LABS: Glucose,Whole Blood 148 mg/dL (75-99)
[2017-06-12] MEDS ORDERED: diphenhydrAMINE 50 MG CAP PO PRN (08:58)
--- NOTE | 2017-06-12 09:08 | XR ---
EXAMINATION TYPE: XR chest 1V portable DATE OF EXAM: 06/12/2017 COMPARISON: 06/11/2017 HISTORY: Shortness of breath FINDINGS: There are bilateral pleural effusions with cardiomegaly and bibasilar infiltrate. There is a diffuse interstitial pattern. Troy-Dannie catheter noted and there is a mediastinal drain and chest tubes. No sizable pneumothorax. Heart size stable. Postsurgical changes noted. Atherosclerotic change aorta. IMPRESSION: 1. Bilateral infiltrate and pleural effusion correlate for CHF. Underlying pneumonia not excluded. Fi ndings stable.
[2017-06-12] MEDS: IPRATROPIUM-ALBUTEROL 3 ML NEB INHALATION SCH ×4 (09:22→20:10)
--- NOTE | 2017-06-12 10:23 | PN ---
PROGRESS NOTE Mr. Alonso is a 71-year-old male who underwent mitral valve repair and coronary artery bypass grafting. He presented initially with symptoms of congestive heart failure and paroxysmal atrial fibrillation. He is feeling better today. He feels tired, but his breathing is better. He denies any symptoms of chest pain. He denies any dizziness or palpitations. He had episode of hypotension yesterday after a beta billy, but that has improved. He continues to be on amiodarone 400 mg twice a day, aspirin once a day, Lipitor 40 mg daily and metoprolol tartrate 12.5 mg twice a day. PHYSICAL EXAMINATION: Blood pressure in the 140s and 150s with the heart rate in the 80s. LUNGS: Decreased air exchange in the bases. No wheezes. HEART: Regular rate and rhythm, S1, S2. No S3 with systolic murmur. No diastolic murmur. ABDOMEN: Soft, nontender. EXTREMITIES: Trace to 1+ edema. LAB DATA: Lab data revealed a hemoglobin 7.9, BUN and creatinine 24 and 1.0. Potassium of 4.6. IMPRESSION: 1. Status post coronary artery bypass grafting with mitral valve repair. 2. Severe cardiomyopathy. 3. Evidence of paroxysmal atrial fibrillation. RECOMMENDATION: From the cardiac standpoint, I will add to his regimen low-dose DORIE inhibitor because of his cardiomyopathy as well as Aldactone. The patient most likely will require to go back on anticoagulation because of the prior episode of paroxysmal atrial fibrillation, but will wait to make sure that the bleeding has stabilized since he was taken back to the operating room. MMODL / IJN: [id number] /
[2017-06-12 11:02] LABS: Glucose,Whole Blood 129 mg/dL (75-99)
[2017-06-12] MEDS: METOPROLOL TARTRATE 12.5 MG TAB PO SCH ×2 (11:15→20:50)
--- NOTE | 2017-06-12 11:25 | P.PN ---
Subjective Progress Note Date: 06/12/17 Patient had episode of hypotension and shortness of breath after getting up to ambulate yesterday , atrial pacer resumed, and a dose of IV Lasix given, patient sitting up at bedside does report some chest discomfort associated with his chest hugger. postop day #2 s/p 4 vessel CABG with left internal mammary artery graft to LAD saphenous vein graft to obtuse marginal high diagonal right coronary arteries and mitral valve annuloplasty with physio ring . Currently the patient is hemodynamically stable, but is having a postop anemia/hemorrhage likely secondary to Xarelto coagulopathy, the patient has received several units of blood, FFP, platelets continues to be hemodynamically stable Objective - Vital Signs Vital signs: Vital Signs Temp 99.3 F 06/12/17 04:00 Pulse 83 06/12/17 09:33 Resp 20 06/12/17 09:00 BP 103/52 06/12/17 09:00 Pulse Ox 92 L 06/12/17 09:00 Intake & Output 06/11/17 06/12/17 06/12/17 18:59 06:59 18:59 Intake Total 1388.2 763.12 29 Output Total 1540 1580 710 Balance -151.8 -816.88 -681 Intake: IV 1335 350 29 C/o injectate 250 60 Lactated Ringers 1,000 ml 986 200 20 @ 20 mls/hr IV .Q24H CHERYL Rx#:[id number] pressure bags 99 90 9 Intake, IV Titration 53.2 413.12 0 Amount Clevidipine Butyrate 25 21.6 mg In Empty Bag 1 bag @ 1 MG/HR 2 mls/hr IV .Q24H CHERYL Rx#:[id number] DOPamine DRIP 800 mg In 386.07 Dextrose/Water 1 500ml. bag @ 3 MCG/KG/MIN 9.18 mls/hr IV .Q24H [facility]ERYL Rx#: [id number] Insulin Regular 100 unit 27.05 0 In Sodium Chloride 0.9% 100 ml @ Per Protocol IV .Q0M [facility]ERYL Rx#:[id number] Propofol 1,000 mg In 31.6 Empty Bag 1 bag @ Titrate IV .Q0M CHERYL Rx#: [id number] Output: Chest Tube Drainage 960 515 60 Right/Left Mediastinal 420 290 20 Right/Left Pleural Chest 540 225 40 Tube Urine 580 1065 650 Other: Voiding Method Indwelling Catheter Indwelling Catheter Indwelling Catheter ABP, PAP, CO, CI - Last Documented Arterial Blood Pressure 61/37 Pulmonary Artery Pressure 45/19 Cardiac Output 5.2 Cardiac Index 2.5 - Exam Constitutional: 71-year-old male, appearing stated age conversant and pleasant Eyes: Anicteric sclerae, moist conjunctiva, no lid-lag, PERRLA ENMT: NC/AT,Oropharynx clear, no erythema, exudates Neck:Supple, FROM, no masses, or JVD, No carotid bruits; No thyromegaly, Cordis and PA lines in place Lungs: Clear to auscultation, Clear to percussion, Normal respiratory effort, no accessory muscle use Cardiovascular: Heart regular in rate and rhythm, 2/6 systolic heart murmur in the precordium, gallops, or rubs no peripheral edema, mediastinal and pleural tubes in place Abdominal: Soft Nontender, nom distended, no guarding, no rebound or rigidity, Normoactive bowel sounds No hepatomegaly, No splenomegaly, No palpable mass No abdominal wall hernia noted Skin: Normal temperature, tone, texture, turgor, No induration No subcutaneous nodules, No rash, lesions, No ulcers Extremities:No digital cyanosis No clubbing, Pedal pulses intact and symmetrical Radial pulses intact and symmetrical Normal gait and station, No calf tenderness Psychiatric: Alert and oriented to person, place and time, Appropriate affect Intact judgement Neuro: Unable to fully assess his neurological system as the patient is Sedated and intubated - Labs CBC & Chem 7: 06/12/17 03:50 06/12/17 03:50 Labs: Abnormal Lab Results - Last 24 Hours (Table) 06/09/17 06/11/17 06/11/17 Range/Units 09:03 13:37 15:04 WBC (3.8-10.6) k/uL RBC (4.30-5.90) m/uL Hgb (13.0-17.5) gm/dL Hct (39.0-53.0) % Neutrophils # (1.3-7.7) k/uL Lymphocytes # (1.0-4.8) k/uL ABG pH (7.35-7.45) ABG pCO2 (35-45) mmHg ABG pO2 (83-108) mmHg ABG Total CO2 (19-24) mmol/L BUN (9-20) mg/dL Glucose (74-99) mg/dL POC Glucose (mg/dL) 101 H 111 H (75-99) mg/dL Magnesium (1.6-2.3) mg/dL AST (17-59) U/L Total Protein (6.3-8.2) g/dL Crossmatch See Detail 06/11/17 06/11/17 06/11/17 Range/Units 17:10 18:53 20:26 WBC (3.8-10.6) k/uL RBC (4.30-5.90) m/uL Hgb (13.0-17.5) gm/dL Hct (39.0-53.0) % Neutrophils # (1.3-7.7) k/uL Lymphocytes # (1.0-4.8) k/uL ABG pH (7.35-7.45) ABG pCO2 (35-45) mmHg ABG pO2 (83-108) mmHg ABG Total CO2 (19-24) mmol/L BUN (9-20) mg/dL Glucose (74-99) mg/dL POC Glucose (mg/dL) 125 H 116 H 128 H (75-99) mg/dL Magnesium (1.6-2.3) mg/dL AST (17-59) U/L Total Protein (6.3-8.2) g/dL Crossmatch 06/11/17 06/11/17 06/12/17 Range/Units 22:39 23:18 03:12 WBC (3.8-10.6) k/uL RBC (4.30-5.90) m/uL Hgb (13.0-17.5) gm/dL Hct (39.0-53.0) % Neutrophils # (1.3-7.7) k/uL Lymphocytes # (1.0-4.8) k/uL ABG pH 7.48 H (7.35-7.45) ABG pCO2 34 L (35-45) mmHg ABG pO2 76 L (83-108) mmHg ABG Total CO2 27 H (19-24) mmol/L BUN (9-20) mg/dL Glucose (74-99) mg/dL POC Glucose (mg/dL) 125 H 110 H (75-99) mg/dL Magnesium (1.6-2.3) mg/dL AST (17-59) U/L Total Protein (6.3-8.2) g/dL Crossmatch 06/12/17 06/12/17 06/12/17 Range/Units 03:50 03:50 05:19 WBC 13.1 H (3.8-10.6) k/uL RBC 2.80 L (4.30-5.90) m/uL Hgb 7.9 L (13.0-17.5) gm/dL Hct 24.8 L (39.0-53.0) % Neutrophils # 12.2 H (1.3-7.7) k/uL Lymphocytes # 0.4 L (1.0-4.8) k/uL ABG pH (7.35-7.45) ABG pCO2 (35-45) mmHg ABG pO2 (83-108) mmHg ABG Total CO2 (19-24) mmol/L BUN 24 H (9-20) mg/dL Glucose 101 H (74-99) mg/dL POC Glucose (mg/dL) 112 H (75-99) mg/dL Magnesium 2.7 H (1.6-2.3) mg/dL AST 85 H (17-59) U/L Total Protein 5.4 L (6.3-8.2) g/dL Crossmatch 06/12/17 06/12/17 06/12/17 Range/Units 06:59 08:51 11:01 WBC (3.8-10.6) k/uL RBC (4.30-5.90) m/uL Hgb (13.0-17.5) gm/dL Hct (39.0-53.0) % Neutrophils # (1.3-7.7) k/uL Lymphocytes # (1.0-4.8) k/uL ABG pH (7.35-7.45) ABG pCO2 (35-45) mmHg ABG pO2 (83-108) mmHg ABG Total CO2 (19-24) mmol/L BUN (9-20) mg/dL Glucose (74-99) mg/dL POC Glucose (mg/dL) 122 H 148 H 129 H (75-99) mg/dL Magnesium (1.6-2.3) mg/dL AST (17-59) U/L Total Protein (6.3-8.2) g/dL Crossmatch Microbiology - Last 24 Hours (Table) 06/10/17 16:50 Urine Culture - Final Urine,Catheterized Assessment and Plan (1) CAD (coronary artery disease) Narrative/Plan: * Status post four-vessel CABG with left internal mammary artery graft to LAD , saphenous grafts to obtuse marginal , high diagonal , right coronary arteries postop day #2 * CT surgery Dr. Pérez following Current Visit: Yes Status: Acute Code(s): I25.10 - ATHSCL HEART DISEASE OF [place] CORONARY ARTERY W/O ANG PCTRS SNOMED Code(s): 30292376 (2) Valvular heart disease Narrative/Plan: * Postop day #2 Status status post mitral valve annuloplasty with Physio ring placement * Postop RUT indicating resolution of his mitral regurgitation Current Visit: Yes Status: Acute Code(s): I38 - ENDOCARDITIS, VALVE UNSPECIFIED SNOMED Code(s): 824005 (3) Postoperative anemia due to acute blood loss Narrative/Plan: * Hemoglobin down to 7.9 g today * Patient has received several units of RBCs and FFP and platelets * continue to monitor his hemoglobin closely Current Visit: Yes Status: Acute Code(s): D62 - ACUTE POSTHEMORRHAGIC ANEMIA SNOMED Code(s): 48817695479987647 (4) Atrial fibrillation with rapid ventricular response Narrative/Plan: * Currently in normal sinus rhythm * Continue with amiodarone drip and metoprolol * Echocardiogram revealing severe systolic dysfunction with EF of 25-30%, with a severely dilated left atrium Current Visit: Yes Status: Resolved Code(s): I48.91 - UNSPECIFIED ATRIAL FIBRILLATION SNOMED Code(s): 620233447634898 (5) Systolic CHF, acute Narrative/Plan: * Severe cardiomyopathy EF of 20% on RUT * Continue with diuresis with Lasix, continue with beta billy therapy, low- dose DORIE inhibitor and Aldactone Current Visit: Yes Status: Acute Code(s): I50.21 - ACUTE SYSTOLIC ( CONGESTIVE) HEART FAILURE SNOMED Code(s): 072606165 (6) COPD (chronic obstructive pulmonary disease) with emphysema Narrative/Plan: * Continue current management * Chest x-ray this morning suggesting bilateral infiltrates, from pneumonia, patient has been afebrile with T-max 99.3 with a slight increase in his WBCs to 13.1 * We'll continue to monitor antibiotics may be indicated however will defer to pulmonology Current Visit: Yes Status: Acute Code(s): J43.9 - EMPHYSEMA, UNSPECIFIED SNOMED Code(s): 45304885
[2017-06-12 12:05] LABS: Glucose,Whole Blood 116 mg/dL (75-99)
--- NOTE | 2017-06-12 13:34 | P.PN ---
Subjective Progress Note Date: 06/12/17 Principal diagnosis: Severe mitral regurgitation and cardiomyopathy with LV dysfunction, moderate pulmonary hypertension, and coronary artery disease This is a very pleasant 71-year-old gentleman who follows with Dr. Mauricio Keith as his primary care physician. He has history of Crohn's disease, nephrolithiasis status post lithotripsy him a BPH, hypertension, tinnitus. He has has a history of previous tobacco dependence and suspected COPD. 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 He had been having ongoing issues with shortness of breath, yellow productive sputum. He had been treated for bronchitis 2 with antibiotics and steroids. Never quite back to his baseline. He did have a fever of 102.4. He presented to the emergency room at [facility] with increasing shortness of breath, cough, congestion palpitations. He was found to be in atrial fibrillation with a rapid ventricular response and was subsequently transferred here to [facility] yesterday morning. His chest x-ray did reveal evidence of fluid volume overload and congestive heart failure. An echocardiogram revealed severely impaired left ventricular systolic function with ejection fraction 25-30%. There is also noted severe global hypokinesia. He has moderate to severe mitral regurgitation. Moderate to severe tricuspid regurgitation. Moderate pulmonary hypertension with an RVSP of 57.96 mmHg. ProBNP 6190. Creatinine 1.20. He has been initiated on Lasix 20 mg IV push every 12 hours. He is seen today in consultation on the selective care unit. He is currently sitting up in a chair at the bedside. He is awake and alert in no acute distress. He is breathing easier today as compared to yesterday. He is maintaining good O2 saturations in the 90s on room air. He has since converted back to normal sinus rhythm. He is afebrile. No fever chills or night sweats. No productive cough. The cultures reveal no growth to date. He has been initiated on Xarelto. He is also on bronchodilators, IV Solu-Medrol and antibiotics in the form of Augmentin. The patient is seen again today 06/03/2017 in follow-up on the selective care unit. He is currently resting comfortably in bed. He did undergo cardiac catheterization this morning. Report is pending. Further interventions are being discussed. He denies any shortness of breath currently. No chest pain or palpitations. He is currently maintaining good O2 saturations in the 90s on room air. He is hemodynamically stable. Blood and sputum cultures reveal no growth to date. White count 9.7. Hemoglobin 10.9. Creatinine 1.41. He is currently on bronchodilators, IV Solu-Medrol, Augmentin. Xarelto currently on hold. On 06/04/2017 patient seen in follow-up on selective care unit. Patient underwent cardiac catheterization on 06/03/2017 was found to have moderate disease in the distal left main and the mid RCA and moderate disease in the proximal left circumflex. In the plan is to treat him medically for his coronary artery disease. Yesterday in the afternoon patient back into atrial fibrillation with RVR, started on Cardizem drip, and currently his rate is ranging anywhere from 80-110 BPM. Patient had an episode of acute respiratory distress this morning, she was tachypneic, coughing, and was given 40 mg of IV Lasix for what appeared to be acute pulmonary edema. Chest x-ray was obtained, and showed pulmonary venous hypertension, and interstitial edema. Patient was placed on 100% nonrebreather, once releasing his FiO2 was weaned back down, and currently the patient is on 3 L per nasal cannula with O2 sat 94%. She remains on oral prednisone, Xarelto for anticoagulation. Responded well to IV diuretics. On 06/05/2088 seeing bC for a follow-up. Obviously the patient is less short of breath compared to yesterday. Note that the patient went into an acute pulmonary edema yesterday and he became acutely short of breath. He responded nicely to diuretics. He is going to have a RUT to evaluate the mitral valve regurgitation today and its severity. The patient is still in atrial fibrillation. Rate is under better control and the patient is currently off the Cardizem drip. He has having no chest pain. No nausea. No vomiting. No cough or sputum production. Cardiology is on the case and the patient is currently anticoagulated with Xarelto. He is also on metoprolol 25 mg by mouth twice a day and amiodarone 400 mg by mouth twice a day and the patient is also on a combination of Lasix and Aldactone. The patient is also completing a course of Augmentin and a prednisone burst taper regarding acute bronchitis/ COPD exacerbation. For now the plan is to proceed with cardiac evaluation with RUT. On 06/06/2017, I'm seeing this patient for a follow-up. Overall poor status is stable and the patient is less short of breath compared to yesterday. He is still being investigated regarding his valvular disease knowing that he has severe mitral regurgitation and he may be a potentially candidate for mitral valve repair. History nature fibrillation at the rate is controlled. He is on anticoagulation for now and he is on Xarelto. No chest pain. No angina. No nausea. No vomiting. No swelling in lower extremities. On and off is still coughing and he is being treated with a prednisone burst taper regarding his COPD exacerbation is also on a course of Augmentin. The patient was seen by Dr. Reinaldo Davila. He is on Lasix 40 mg IV every 12 hours. He is also on Aldactone 25 minutes by mouth daily. No other significant events over the past 24 hours. He is also on amiodarone 400 mg by mouth twice a day in addition to his beta billy 25 mg of metoprolol twice a day. On 06/07/2017, the patient is feeling much better. He is off oxygen. His emanating. A bedside spirometry was done and his FEV1 is normal to 58% of predicted consistent with COPD yet this can be and also a underestimation of the lung capacity knowing that the patient was in CHF and had lateral pleural effusions. In any rate his cardiac rhythm is back to sinus. He is having paroxysmal atrial fibrillation and this morning he was noted to be in sinus rhythm. No chest pain. No major swelling lower extremities. No altered mentation. He is completing a prednisone burst taper regarding his COPD exacerbation. I elected discussion about this case with cardiology and cardiothoracic surgery. The patient will need surgery knowing that he has severe mitral regurgitation. The images were reviewed by the surgeon. The consensus is that the patient will need an intra-aortic balloon pump placed to optimize his postoperative recovery. If surgery is being contemplated, this will be done probably on Thursday with insertion of intra-aortic balloon pump. The patient otherwise is doing well. He is on oral Lasix. Is on Zestril. Is on Lopressor. He is on a prednisone burst taper. No fever or chills. No other complaints otherwise for now. Patient was reevaluated today on 06/08/2017, patient is feeling great, asymptomatic, off the oxygen, looking forward for his planned surgery in the next 2 days. Patient apparently has severe mitral regurgitation, and he would require surgical intervention I believe it was scheduled for next one day. CBC was noted to be normal, basic metabolic profile is normal, bicarb is 36. Patient denies any cough wheezing or shortness of breath at present. The patient is seen again today 06/09/2017 in follow-up on the selective care unit. He is currently sitting up in a chair at the bedside. He is feeling quite well today. He denies any worsening shortness of breath, cough or congestion. His been maintaining good O2 saturations in the mid 90s on room air. He's been afebrile. Hemodynamically stable. No chest pain or palpitations. White count 9.4. Hemoglobin 11.9. Creatinine 0.94. Reevaluated today on 06/10/2017, patient underwent mitral valve repair, and four- vessel bypass today. Transferred back to the ICU on mechanical ventilation, and I evaluated the patient postoperatively. His ventilator settings were reviewed, patient is on tidal volume of 500, IMV rate of 12, PEEP of 8, and FiO2 of 100% at this point. ABG is pending. Chest x-ray showed mostly postoperative changes, and proper placement of endotracheal tube and chest tubes. Patient is fully sedated, and mechanically ventilated. Patient was reevaluated today on 06/11/2017, patient was still on mechanical ventilation earlier this morning, he had some weaning parameters earlier this morning that where reasonable but the patient had poor ABG on 40% FiO2. Hence we delayed the extubation until this morning. Upon my evaluation, the patient was noted to be doing well on CPAP, and I gave him a short trial of CPAP and pressure support were and the patient did extremely well with excellent tidal volumes and respiratory rate. Chest x-ray was reviewed and it showed minimal venous congestion, hence I proceeded to extubating the patient. Tolerated the extubation well, and I was still at bedside. CBC was reviewed WBC is 14.4 hemoglobin is 8.4 ABG this morning showed a pO2 of 80 pCO2 of 41 pH of 7.41. Basic metabolic profile was noted to be relatively normal. Renal functioning is normal. Meds were all reviewed. Reevaluated today on 06/12/2017, patient had episodes of shortness of breath last night, responded quite well to a dose of Lasix 40 mg IV push given 1. Today continues to have some shortness of breath, but his chest x-ray is showing improvement, his ABG is reasonable, and his O2 saturation is in the high 90s on 3 L nasal cannula. ABC was noted to be normal except for hemoglobin of 7.9. ABG this morning showed a pO2 of 76 pCO2 of 34 pH of 7.48. Renal profile is normal patient is putting out almost 100 mL of urine per hour. Chest x-ray showed minimal small pleural effusions consistent with mild congestive heart failure changes. No evidence of pneumonia. Objective - Vital Signs Vital signs: Vital Signs Temp 99.3 F 06/12/17 04:00 Pulse 83 06/12/17 13:10 Resp 24 06/12/17 12:00 BP 107/60 06/12/17 12:00 Pulse Ox 92 L 06/12/17 12:00 Intake & Output 06/11/17 06/12/17 06/12/17 18:59 06:59 18:59 Intake Total 1388.2 763.12 124 Output Total 1540 1580 1260 Balance -151.8 -816.88 -1136 Intake: IV 1335 350 124 C/o injectate 250 60 Lactated Ringers 1,000 ml 986 200 100 @ 20 mls/hr IV .Q24H CHERYL Rx#:[id number] pressure bags 99 90 24 Intake, IV Titration 53.2 413.12 0 Amount Clevidipine Butyrate 25 21.6 mg In Empty Bag 1 bag @ 1 MG/HR 2 mls/hr IV .Q24H CHERYL Rx#:[id number] DOPamine DRIP 800 mg In 386.07 Dextrose/Water 1 500ml. bag @ 3 MCG/KG/MIN 9.18 mls/hr IV .Q24H CHERYL Rx#: [id number] Insulin Regular 100 unit 27.05 0 In Sodium Chloride 0.9% 100 ml @ Per Protocol IV .Q0M CHERYL Rx#:[id number] Propofol 1,000 mg In 31.6 Empty Bag 1 bag @ Titrate IV .Q0M CHERYL Rx#: [id number] Output: Chest Tube Drainage 960 515 245 Right/Left Mediastinal 420 290 70 Right/Left Pleural Chest 540 225 175 Tube Urine 580 1065 1015 Other: Voiding Method Indwelling Catheter Indwelling Catheter Indwelling Catheter ABP, PAP, CO, CI - Last Documented Arterial Blood Pressure 61/37 Pulmonary Artery Pressure 47/22 Cardiac Output 5.2 Cardiac Index 2.5 - Exam GENERAL EXAM: Revealed a 71-year-old white male in no form of respiratory distress. HEAD: Normocephalic. EYES: Normal reaction of pupils, equal size. NOSE: Clear with pink turbinates. THROAT: Moist mucous membranes. No erythema or exudates. NECK: No masses, no JVD. No thyromegaly CHEST: Symmetrical chest expansion bilaterally, chest tubes were noted, good breath sound bilaterally no rhonchi, no wheezes. CVS: Regular rate and rhythm, normal S1 and S2, 2/6 systolic murmur thought the precordium. ABDOMEN: No hepatosplenomegaly, normal bowel sounds, no guarding or rigidity. SPINE: No scoliosis or deformity SKIN: No rashes CENTRAL NERVOUS SYSTEM: Alert oriented, no gross focal neurologic deficit. EXTREMITIES: There is trace peripheral edema. No clubbing, no cyanosis. Both lower extremities are covered with Haim bandage. - Labs CBC & Chem 7: 06/12/17 03:50 06/12/17 03:50 Labs: Abnormal Lab Results - Last 24 Hours (Table) 06/09/17 06/11/17 06/11/17 Range/Units 09:03 13:37 15:04 WBC (3.8-10.6) k/uL RBC (4.30-5.90) m/uL Hgb (13.0-17.5) gm/dL Hct (39.0-53.0) % Neutrophils # (1.3-7.7) k/uL Lymphocytes # (1.0-4.8) k/uL ABG pH (7.35-7.45) ABG pCO2 (35-45) mmHg ABG pO2 (83-108) mmHg ABG Total CO2 (19-24) mmol/L BUN (9-20) mg/dL Glucose (74-99) mg/dL POC Glucose (mg/dL) 101 H 111 H (75-99) mg/dL Magnesium (1.6-2.3) mg/dL AST (17-59) U/L Total Protein (6.3-8.2) g/dL Crossmatch See Detail 06/11/17 06/11/17 06/11/17 Range/Units 17:10 18:53 20:26 WBC (3.8-10.6) k/uL RBC (4.30-5.90) m/uL Hgb (13.0-17.5) gm/dL Hct (39.0-53.0) % Neutrophils # (1.3-7.7) k/uL Lymphocytes # (1.0-4.8) k/uL ABG pH (7.35-7.45) ABG pCO2 (35-45) mmHg ABG pO2 (83-108) mmHg ABG Total CO2 (19-24) mmol/L BUN (9-20) mg/dL Glucose (74-99) mg/dL POC Glucose (mg/dL) 125 H 116 H 128 H (75-99) mg/dL Magnesium (1.6-2.3) mg/dL AST (17-59) U/L Total Protein (6.3-8.2) g/dL Crossmatch 06/11/17 06/11/17 06/12/17 Range/Units 22:39 23:18 03:12 WBC (3.8-10.6) k/uL RBC (4.30-5.90) m/uL Hgb (13.0-17.5) gm/dL Hct (39.0-53.0) % Neutrophils # (1.3-7.7) k/uL Lymphocytes # (1.0-4.8) k/uL ABG pH 7.48 H (7.35-7.45) ABG pCO2 34 L (35-45) mmHg ABG pO2 76 L (83-108) mmHg ABG Total CO2 27 H (19-24) mmol/L BUN (9-20) mg/dL Glucose (74-99) mg/dL POC Glucose (mg/dL) 125 H 110 H (75-99) mg/dL Magnesium (1.6-2.3) mg/dL AST (17-59) U/L Total Protein (6.3-8.2) g/dL Crossmatch 06/12/17 06/12/17 06/12/17 Range/Units 03:50 03:50 05:19 WBC 13.1 H (3.8-10.6) k/uL RBC 2.80 L (4.30-5.90) m/uL Hgb 7.9 L (13.0-17.5) gm/dL Hct 24.8 L (39.0-53.0) % Neutrophils # 12.2 H (1.3-7.7) k/uL Lymphocytes # 0.4 L (1.0-4.8) k/uL ABG pH (7.35-7.45) ABG pCO2 (35-45) mmHg ABG pO2 (83-108) mmHg ABG Total CO2 (19-24) mmol/L BUN 24 H (9-20) mg/dL Glucose 101 H (74-99) mg/dL POC Glucose (mg/dL) 112 H (75-99) mg/dL Magnesium 2.7 H (1.6-2.3) mg/dL AST 85 H (17-59) U/L Total Protein 5.4 L (6.3-8.2) g/dL Crossmatch 06/12/17 06/12/17 06/12/17 Range/Units 06:59 08:51 11:01 WBC (3.8-10.6) k/uL RBC (4.30-5.90) m/uL Hgb (13.0-17.5) gm/dL Hct (39.0-53.0) % Neutrophils # (1.3-7.7) k/uL Lymphocytes # (1.0-4.8) k/uL ABG pH (7.35-7.45) ABG pCO2 (35-45) mmHg ABG pO2 (83-108) mmHg ABG Total CO2 (19-24) mmol/L BUN (9-20) mg/dL Glucose (74-99) mg/dL POC Glucose (mg/dL) 122 H 148 H 129 H (75-99) mg/dL Magnesium (1.6-2.3) mg/dL AST (17-59) U/L Total Protein (6.3-8.2) g/dL Crossmatch 06/12/17 Range/Units 12:03 WBC (3.8-10.6) k/uL RBC (4.30-5.90) m/uL Hgb (13.0-17.5) gm/dL Hct (39.0-53.0) % Neutrophils # (1.3-7.7) k/uL Lymphocytes # (1.0-4.8) k/uL ABG pH (7.35-7.45) ABG pCO2 (35-45) mmHg ABG pO2 (83-108) mmHg ABG Total CO2 (19-24) mmol/L BUN (9-20) mg/dL Glucose (74-99) mg/dL POC Glucose (mg/dL) 116 H (75-99) mg/dL Magnesium (1.6-2.3) mg/dL AST (17-59) U/L Total Protein (6.3-8.2) g/dL Crossmatch Microbiology - Last 24 Hours (Table) 06/10/17 16:50 Urine Culture - Final Urine,Catheterized Assessment and Plan Assessment: 1: Status post CABG and mitral valve repair postoperative day #2 1 coronary artery disease with evidence of severe mitral regurgitation, impaired LV function with an ejection fraction of around 25-30% in addition to dilatation of the right ventricle and moderate degree of pulmonary hypertension with a PA pressure estimated to be around 57 and addition to underlying coronary artery disease. 2 diffuse emphysema with centrilobular changes as evident on the CAT scan of the chest, 3 bilateral pleural effusion, small, right more than left, likely related to CHF , responding to diuretics. 4 atrial fibrillation with rapid ventricular response, recovered and the patient is still having episodes of 80 fibrillation yet at the time of evaluation this morning the patient's rhythm was sinus. 5 CHF with an ejection fraction of 25-30% based on echocardiogram. This could be a major contributing factor to shortness of breath. 6 BPH 7 Crohn's disease 8 hypertension 9 nephrolithiasis Recommendation: Continue present supportive care measures including bronchodilators, incentive spirometry, when necessary diuretics, early ambulation, nutritional support, and will continue to follow, discussed his condition with the surgeon on the case. Time with Patient: Less than 30
--- NOTE | 2017-06-12 13:41 | P.PN ---
Subjective Progress Note Date: 06/12/17 Principal diagnosis: Multivessel coronary artery disease, mitral regurgitation. Acute on chronic systolic heart failure with ejection fraction 20-25%. Cardiomyopathy. Previous medical history of Crohn's, BPH, previous tobacco dependence with current FEV1 58% of predicted. Recent tracheobronchitis. New-onset paroxysmal atrial fibrillation, treated preoperatively with amiodarone and Xarelto. POD #2 urgent coronary artery bypass grafting 4 with the left internal mammary artery graft to LAD, reverse saphenous vein grafts to obtuse marginal, high diagonal, right coronary arteries. Mitral valve annuloplasty with 26 mm physio- Ring. Modified Schuler maze procedure with complete left-sided lesion set and ligation of the left atrial appendage. Endovascular vein harvest. Transesophageal echocardiogram by anesthesia. Acute blood loss anemia, acute postoperative hemorrhage, an unexpected but potential outcome of surgery. POD #2 sternal reexploration for bleeding Patient's currently sitting up in the chair in no acute distress. Denies any chest pain or discomfort, does state he feels short of breath. Had an episode of increased shortness of breath last night, chest x-ray and ABGs ordered by Dr. Davila, IV Lasix ordered by Dr. Harmon. Objective - Vital Signs Vital signs: Vital Signs Temp 99.3 F 06/12/17 04:00 Pulse 83 06/12/17 09:33 Resp 20 06/12/17 09:00 BP 103/52 06/12/17 09:00 Pulse Ox 92 L 06/12/17 09:00 Intake & Output 06/11/17 06/12/17 06/12/17 18:59 06:59 18:59 Intake Total 1388.2 763.12 29 Output Total 1540 1580 710 Balance -151.8 -816.88 -681 Intake: IV 1335 350 29 C/o injectate 250 60 Lactated Ringers 1,000 ml 986 200 20 @ 20 mls/hr IV .Q24H CHERYL Rx#:[id number] pressure bags 99 90 9 Intake, IV Titration 53.2 413.12 0 Amount Clevidipine Butyrate 25 21.6 mg In Empty Bag 1 bag @ 1 MG/HR 2 mls/hr IV .Q24H CHERYL Rx#:[id number] DOPamine DRIP 800 mg In 386.07 Dextrose/Water 1 500ml. bag @ 3 MCG/KG/MIN 9.18 mls/hr IV .Q24H CHERYL Rx#: [id number] Insulin Regular 100 unit 27.05 0 In Sodium Chloride 0.9% 100 ml @ Per Protocol IV .Q0M CHERYL Rx#:[id number] Propofol 1,000 mg In 31.6 Empty Bag 1 bag @ Titrate IV .Q0M CHERYL Rx#: [id number] Output: Chest Tube Drainage 960 515 60 Right/Left Mediastinal 420 290 20 Right/Left Pleural Chest 540 225 40 Tube Urine 580 1065 650 Other: Voiding Method Indwelling Catheter Indwelling Catheter Indwelling Catheter ABP, PAP, CO, CI - Last Documented Arterial Blood Pressure 61/37 Pulmonary Artery Pressure 45/19 Cardiac Output 5.2 Cardiac Index 2.5 - Constitutional General appearance: Present: cooperative, no acute distress - Respiratory Details: Lungs sounds diminished bilaterally with coarse breath sounds in the bases. Respirations even, nonlabored. Currently on 4 L nasal cannula with oxygen saturation 99%. Able to achieve 750-1000 mL on his incentive spirometry. Mediastinal chest tube to continuous wall suction, 230 mL serosanguineous drainage overnight, 600 mL in the last 24 hours. Right/left pleural chest tubes to continuous wall suction, 205 mL serosanguineous drainage overnight, 800 mL last 24 hours. No air leaks present. - Cardiovascular Details: S1, S2 present. Regular rate and rhythm, underlying sinus rhythm but atrial paced on telemetry. He/V epicardial pacemaker wires present, connected to generator, AAI mode with a backup rate 80 bpm. Was turned down to backup rate of 50 bpm this morning but blood pressure did not tolerate. Sternum stable. Palpable peripheral pulses bilaterally. No edema present. No calf pain or tenderness noted. Right internal jugular Cordis/Kermit present. Last CO/CI 5.2/ 2.6 on no inotropes. Dopamine was discontinued at this morning. Heart hugger in place with patient demonstrating appropriate use. Antiembolism stockings, SCDs present. - Gastrointestinal Gastrointestinal Comment(s): Abdomen soft, nontender, nondistended. Active bowel sounds present 4 quadrants. Tolerating diet. Negative flatus, negative BM since surgery. - Genitourinary Genitourinary Comment(s): Mary present draining clear, yellow urine. Output 35-65 mL per hour overnight with 550 mL out at 6 AM after Lasix given IV. - Integumentary Integumentary Comment(s): Skin is warm and dry. Anterior chest incision well approximated cover dry intact dressing. Bilateral EVH sites well approximated. - Neurologic Neurologic: Present: CNII-XII intact - Musculoskeletal Musculoskeletal: Present: generalized weakness, strength equal bilaterally - Psychiatric Psychiatric: Present: A&O x's 3, appropriate affect, intact judgment & insight - Allied health notes Allied health notes reviewed: nursing - Labs CBC & Chem 7: 06/12/17 03:50 06/12/17 03:50 Labs: Abnormal Lab Results - Last 24 Hours (Table) 06/09/17 06/11/17 06/11/17 Range/Units 09:03 11:20 13:37 WBC (3.8-10.6) k/uL RBC (4.30-5.90) m/uL Hgb (13.0-17.5) gm/dL Hct (39.0-53.0) % Neutrophils # (1.3-7.7) k/uL Lymphocytes # (1.0-4.8) k/uL ABG pH (7.35-7.45) ABG pCO2 (35-45) mmHg ABG pO2 (83-108) mmHg ABG Total CO2 (19-24) mmol/L BUN (9-20) mg/dL Glucose (74-99) mg/dL POC Glucose (mg/dL) 111 H 101 H (75-99) mg/dL Magnesium (1.6-2.3) mg/dL AST (17-59) U/L Total Protein (6.3-8.2) g/dL Crossmatch See Detail 06/11/17 06/11/17 06/11/17 Range/Units 15:04 17:10 18:53 WBC (3.8-10.6) k/uL RBC (4.30-5.90) m/uL Hgb (13.0-17.5) gm/dL Hct (39.0-53.0) % Neutrophils # (1.3-7.7) k/uL Lymphocytes # (1.0-4.8) k/uL ABG pH (7.35-7.45) ABG pCO2 (35-45) mmHg ABG pO2 (83-108) mmHg ABG Total CO2 (19-24) mmol/L BUN (9-20) mg/dL Glucose (74-99) mg/dL POC Glucose (mg/dL) 111 H 125 H 116 H (75-99) mg/dL Magnesium (1.6-2.3) mg/dL AST (17-59) U/L Total Protein (6.3-8.2) g/dL Crossmatch 06/11/17 06/11/17 06/11/17 Range/Units 20:26 22:39 23:18 WBC (3.8-10.6) k/uL RBC (4.30-5.90) m/uL Hgb (13.0-17.5) gm/dL Hct (39.0-53.0) % Neutrophils # (1.3-7.7) k/uL Lymphocytes # (1.0-4.8) k/uL ABG pH 7.48 H (7.35-7.45) ABG pCO2 34 L (35-45) mmHg ABG pO2 76 L (83-108) mmHg ABG Total CO2 27 H (19-24) mmol/L BUN (9-20) mg/dL Glucose (74-99) mg/dL POC Glucose (mg/dL) 128 H 125 H (75-99) mg/dL Magnesium (1.6-2.3) mg/dL AST (17-59) U/L Total Protein (6.3-8.2) g/dL Crossmatch 06/12/17 06/12/17 06/12/17 Range/Units 03:12 03:50 03:50 WBC 13.1 H (3.8-10.6) k/uL RBC 2.80 L (4.30-5.90) m/uL Hgb 7.9 L (13.0-17.5) gm/dL Hct 24.8 L (39.0-53.0) % Neutrophils # 12.2 H (1.3-7.7) k/uL Lymphocytes # 0.4 L (1.0-4.8) k/uL ABG pH (7.35-7.45) ABG pCO2 (35-45) mmHg ABG pO2 (83-108) mmHg ABG Total CO2 (19-24) mmol/L BUN 24 H (9-20) mg/dL Glucose 101 H (74-99) mg/dL POC Glucose (mg/dL) 110 H (75-99) mg/dL Magnesium 2.7 H (1.6-2.3) mg/dL AST 85 H (17-59) U/L Total Protein 5.4 L (6.3-8.2) g/dL Crossmatch 06/12/17 06/12/17 06/12/17 Range/Units 05:19 06:59 08:51 WBC (3.8-10.6) k/uL RBC (4.30-5.90) m/uL Hgb (13.0-17.5) gm/dL Hct (39.0-53.0) % Neutrophils # (1.3-7.7) k/uL Lymphocytes # (1.0-4.8) k/uL ABG pH (7.35-7.45) ABG pCO2 (35-45) mmHg ABG pO2 (83-108) mmHg ABG Total CO2 (19-24) mmol/L BUN (9-20) mg/dL Glucose (74-99) mg/dL POC Glucose (mg/dL) 112 H 122 H 148 H (75-99) mg/dL Magnesium (1.6-2.3) mg/dL AST (17-59) U/L Total Protein (6.3-8.2) g/dL Crossmatch Microbiology - Last 24 Hours (Table) 06/10/17 16:50 Urine Culture - Final Urine,Catheterized - Imaging and Cardiology Chest x-ray: report reviewed, image reviewed Assessment and Plan (1) Mitral regurgitation Current Visit: Yes Status: Chronic Code(s): I34.0 - NONRHEUMATIC MITRAL ( VALVE) INSUFFICIENCY SNOMED Code(s): 16440286 (2) History of Crohn's disease Current Visit: Yes Status: Chronic Code(s): Z87.19 - PERSONAL HISTORY OF OTHER DISEASES OF THE DIGESTIVE SYSTEM SNOMED Code(s): 623376384947174 (3) Tobacco dependence in remission Current Visit: No Status: Resolved Code(s): F17.201 - NICOTINE DEPENDENCE, UNSPECIFIED, IN REMISSION SNOMED Code(s): 833651819 (4) Acute systolic heart failure Current Visit: Yes Status: Acute Code(s): I50.21 - ACUTE SYSTOLIC ( CONGESTIVE) HEART FAILURE SNOMED Code(s): 011145760 (5) Family history of heart disease Current Visit: Yes Status: Chronic Code(s): Z82.49 - FAMILY HX OF ISCHEM HEART DIS AND OTH DIS OF THE CIRC SYS SNOMED Code(s): 594307177 (6) Tracheobronchitis Current Visit: Yes Status: Chronic Code(s): J40 - BRONCHITIS, NOT SPECIFIED ACUTE OR CHRONIC SNOMED Code(s): 95922591 (7) New onset a-fib Current Visit: Yes Status: Acute Code(s): I48.91 - UNSPECIFIED ATRIAL FIBRILLATION SNOMED Code(s): 01259322 Plan: 1. Continue aspirin, statin, beta billy. Will increase beta billy therapy as tolerated. Dopamine IV discontinued. 2. Continue amiodarone for A. fib prophylaxis. Will restart anticoagulation after all lines and tubes have been discontinued. 3. Encourage incentive spirometry use 10 times every hour. 4. Increase activity, ambulate in hallway. PT/OT/cardiac rehab following 5. Discontinue Chiara Dannie catheter. Connect Cordis to continue CVP monitoring. 6. Will monitor daily labs and x-rays. 7. GI/DVT prophylaxis. 8. Insulin drip/diabetic management per primary care service. 9. Keep Mary catheter for 1 more day for strict accurate I and O's. 10. More recommendations to follow. Time with Patient: Greater than 30
[2017-06-12] MEDS: LACTATED RINGERS 1,000 ML IV SCH (15:57)
[2017-06-12 17:16] LABS: Glucose,Whole Blood 143 mg/dL (75-99)
[2017-06-12 20:32] LABS: Glucose,Whole Blood 142 mg/dL (75-99)
[2017-06-12] MEDS: SENNOSIDES-DOCUSATE SODIUM 1 EACH TAB PO SCH (20:49)
[2017-06-12] MEDS: INSULIN ASPART 100 UNIT/ML 1 ML 10 ML VIAL SQ SCH (20:52)
[2017-06-13 05:02] LABS: Basophils % (A) 0 %; Eosinophils % (A) 0 %; HCT 23.3 % (39.0-53.0); HGB 7.4 gm/dL (13.0-17.5); Hypochromasia Slight; Lymphocytes # (A) 0.6 k/uL (1.0-4.8); Lymphocytes % (A) 5 %; MCH 27.9 pg (25.0-35.0); MCHC 31.7 g/dL (31.0-37.0); MCV 88.1 fL (80.0-100.0); Mean Platelet Volume 9.3; Monocytes # (A) 0.5 k/uL (0-1.0); Monocytes % (A) 4 %; Neutrophils # (A) 10.8 k/uL (1.3-7.7); Neutrophils % (A) 90 %; Platelet Count 169 k/uL (150-450); RBC 2.65 m/uL (4.30-5.90); RDW 14.7 % (11.5-15.5); WBC 11.9 k/uL (3.8-10.6)
[2017-06-13 05:21] LABS: Albumin 3.1 g/dL (3.5-5.0); Calcium 8.2 mg/dL (8.4-10.2); Magnesium 2.4 mg/dL (1.6-2.3); Phosphorus 3.1 mg/dL (2.5-4.5); Potassium 4.6 mmol/L (3.5-5.1); Total Bilirubin 0.9 mg/dL (0.2-1.3); Total Protein 4.9 g/dL (6.3-8.2)
[2017-06-13] MEDS: HYDROcodone/APAP 5-325MG 1 EACH TAB PO PRN ×5 (06:10→23:36)
[2017-06-13 07:03] LABS: Glucose,Whole Blood 141 mg/dL (75-99)
--- NOTE | 2017-06-13 07:10 | XR ---
EXAMINATION TYPE: XR chest 1V portable DATE OF EXAM: 06/13/2017 HISTORY: post cabg. REFERENCE: Previous study dated 06/12/2017. FINDINGS: There has been a midline sternotomy. There are bilateral pleural drains in place. There is a mediastinal drain in place. The patient [place]- Dannie catheter is been removed. A right internal jugular sheath remains in place. The heart is enlarged. There is vascular congestion without bianca edema. There is bibasilar airspace disease, likely representing atelectasis. There are small, bilateral effusions. IMPRESSION: CONTINUING POSTOPERATIVE CHANGE.
[2017-06-13] MEDS: IPRATROPIUM-ALBUTEROL 3 ML NEB INHALATION SCH ×4 (07:43→19:48)
[2017-06-13] MEDS: PANTOPRAZOLE 40 MG/10 ML VIAL IVP SCH (08:50)
[2017-06-13] MEDS: ATORVASTATIN 40 MG TAB PO SCH (08:50)
[2017-06-13] MEDS: ASPIRIN 325 MG TAB PO SCH (08:50)
[2017-06-13] MEDS: AMIODARONE 200 MG TAB PO SCH (08:50)
[2017-06-13] MEDS: HEPARIN SODIUM,PORCINE 5,000 UNIT/ML 1 ML VIAL SQ SCH ×3 (08:50→23:37)
[2017-06-13] MEDS: METOPROLOL TARTRATE 12.5 MG TAB PO SCH (08:51)
[2017-06-13] MEDS: CHLORHEXIDINE GLUCONATE 15 ML CUP MUCOUS MEM SCH (08:51)
[2017-06-13] MEDS: SPIRONOLACTONE 25 MG TAB PO SCH (08:51)
[2017-06-13] MEDS: INSULIN ASPART 100 UNIT/ML 1 ML 10 ML VIAL SQ SCH ×4 (08:58→20:28)
[2017-06-13] MEDS ORDERED: LISINOPRIL 2.5 MG TAB PO SCH (09:00)
--- NOTE | 2017-06-13 09:20 | P.PN ---
Subjective Progress Note Date: 06/13/17 Principal diagnosis: Multivessel coronary artery disease, mitral regurgitation. Acute on chronic systolic heart failure with ejection fraction 20-25%. Cardiomyopathy. Previous medical history of Crohn's, BPH, previous tobacco dependence with current FEV1 58% of predicted. Recent tracheobronchitis. New-onset paroxysmal atrial fibrillation, treated preoperatively with amiodarone and Xarelto. POD #3 urgent coronary artery bypass grafting 4 with the left internal mammary artery graft to LAD, reverse saphenous vein grafts to obtuse marginal, high diagonal, right coronary arteries. Mitral valve annuloplasty with 26 mm physio- Ring. Modified Schuler maze procedure with complete left-sided lesion set and ligation of the left atrial appendage. Endovascular vein harvest. Transesophageal echocardiogram by anesthesia. Acute blood loss anemia, acute postoperative hemorrhage, an unexpected but potential outcome of surgery. POD #3 sternal reexploration for bleeding Patient's currently sitting up in the chair in no acute distress. Denies any chest pain or discomfort, feels Geovany breath than yesterday. States he slept well last night. Ambulated in the hallway yesterday. Excellent diuresis with IV Lasix. Objective - Vital Signs Vital signs: Vital Signs Temp 97.6 F 06/13/17 08:00 Pulse 71 06/13/17 08:01 Resp 27 H 06/13/17 08:00 BP 132/74 06/13/17 08:00 Pulse Ox 98 06/13/17 08:00 Intake & Output 06/12/17 06/13/17 06/13/17 18:59 06:59 18:59 Intake Total 285 1233 249 Output Total 2075 830 260 Balance -1790 403 -11 Intake: IV 285 33 9 Lactated Ringers 1,000 ml 240 @ 20 mls/hr IV .Q24H [facility] Rx#:[id number] pressure bags 45 33 9 Intake, IV Titration 0 Amount Insulin Regular 100 unit 0 In Sodium Chloride 0.9% 100 ml @ Per Protocol IV .Q0M CHERYL Rx#:[id number] Oral 1200 240 Output: Chest Tube Drainage 450 290 140 Right/Left Mediastinal 140 100 70 Right/Left Pleural Chest 310 190 70 Tube Urine 1625 540 120 Other: Voiding Method Indwelling Catheter Indwelling Catheter ABP, PAP, CO, CI - Last Documented Arterial Blood Pressure 61/37 Pulmonary Artery Pressure 47/22 Cardiac Output 5.2 Cardiac Index 2.5 - Constitutional General appearance: Present: cooperative, no acute distress - Respiratory Details: Lungs sounds diminished bilaterally. Respirations even, nonlabored. Currently on 2 L nasal cannula with oxygen saturation 99%. Able to achieve 1500 mL on his incentive spirometry. Mediastinal chest tube to continuous wall suction, 100 mL serosanguineous drainage overnight, 200 mL in the last 24 hours. Right/ left pleural chest tubes to continuous wall suction, 190 mL serosanguineous drainage overnight, 600 mL last 24 hours. No air leaks present. - Cardiovascular Details: S1, S2 present. Regular rate and rhythm, underlying sinus bradycardia/ junctional but atrial paced on telemetry. A/V epicardial pacemaker wires present, connected to generator, AAI mode with a backup rate 70 bpm. Sternum stable. Palpable peripheral pulses bilaterally. No edema present. No calf pain or tenderness noted. Right internal jugular Cordis present. Heart hugger in place with patient demonstrating appropriate use. Antiembolism stockings, SCDs present. - Gastrointestinal Gastrointestinal Comment(s): Abdomen soft, nontender, nondistended. Active bowel sounds present 4 quadrants. Tolerating diet. Negative flatus, negative BM since surgery. - Genitourinary Genitourinary Comment(s): Mary present draining yellow urine with occasional blood clots. Output 30-70 mL per hour overnight. Excellent diuresis after IV Lasix given yesterday. - Integumentary Integumentary Comment(s): Skin is warm and dry. Anterior chest incision well approximated cover dry intact dressing. Bilateral EVH sites well approximated. - Neurologic Neurologic: Present: CNII-XII intact - Musculoskeletal Musculoskeletal: Present: gait normal, strength equal bilaterally - Psychiatric Psychiatric: Present: A&O x's 3, appropriate affect, intact judgment & insight - Allied health notes Allied health notes reviewed: nursing - Labs CBC & Chem 7: 06/13/17 04:55 06/13/17 04:55 Labs: Abnormal Lab Results - Last 24 Hours (Table) 06/12/17 06/12/17 06/12/17 Range/Units 11:01 12:03 17:10 WBC (3.8-10.6) k/uL RBC (4.30-5.90) m/uL Hgb (13.0-17.5) gm/dL Hct (39.0-53.0) % Neutrophils # (1.3-7.7) k/uL Lymphocytes # (1.0-4.8) k/uL Sodium (137-145) mmol/L BUN (9-20) mg/dL Glucose (74-99) mg/dL POC Glucose (mg/dL) 129 H 116 H 143 H (75-99) mg/dL Calcium (8.4-10.2) mg/dL Magnesium (1.6-2.3) mg/dL Total Protein (6.3-8.2) g/dL Albumin (3.5-5.0) g/dL 06/12/17 06/13/17 06/13/17 Range/Units 20:31 04:55 04:55 WBC 11.9 H (3.8-10.6) k/uL RBC 2.65 L (4.30-5.90) m/uL Hgb 7.4 L (13.0-17.5) gm/dL Hct 23.3 L (39.0-53.0) % Neutrophils # 10.8 H (1.3-7.7) k/uL Lymphocytes # 0.6 L (1.0-4.8) k/uL Sodium 135 L (137-145) mmol/L BUN 34 H (9-20) mg/dL Glucose 106 H (74-99) mg/dL POC Glucose (mg/dL) 142 H (75-99) mg/dL Calcium 8.2 L (8.4-10.2) mg/dL Magnesium 2.4 H (1.6-2.3) mg/dL Total Protein 4.9 L (6.3-8.2) g/dL Albumin 3.1 L (3.5-5.0) g/dL 06/13/17 Range/Units 07:01 WBC (3.8-10.6) k/uL RBC (4.30-5.90) m/uL Hgb (13.0-17.5) gm/dL Hct (39.0-53.0) % Neutrophils # (1.3-7.7) k/uL Lymphocytes # (1.0-4.8) k/uL Sodium (137-145) mmol/L BUN (9-20) mg/dL Glucose (74-99) mg/dL POC Glucose (mg/dL) 141 H (75-99) mg/dL Calcium (8.4-10.2) mg/dL Magnesium (1.6-2.3) mg/dL Total Protein (6.3-8.2) g/dL Albumin (3.5-5.0) g/dL - Imaging and Cardiology Chest x-ray: report reviewed, image reviewed Assessment and Plan (1) Mitral regurgitation Current Visit: Yes Status: Chronic Code(s): I34.0 - NONRHEUMATIC MITRAL ( VALVE) INSUFFICIENCY SNOMED Code(s): 32207615 (2) History of Crohn's disease Current Visit: Yes Status: Chronic Code(s): Z87.19 - PERSONAL HISTORY OF OTHER DISEASES OF THE DIGESTIVE SYSTEM SNOMED Code(s): 978037674782753 (3) Tobacco dependence in remission Current Visit: No Status: Resolved Code(s): F17.201 - NICOTINE DEPENDENCE, UNSPECIFIED, IN REMISSION SNOMED Code(s): 357960209 (4) Acute systolic heart failure Current Visit: Yes Status: Acute Code(s): I50.21 - ACUTE SYSTOLIC ( CONGESTIVE) HEART FAILURE SNOMED Code(s): 734956772 (5) Family history of heart disease Current Visit: Yes Status: Chronic Code(s): Z82.49 - FAMILY HX OF ISCHEM HEART DIS AND OTH DIS OF THE CIRC SYS SNOMED Code(s): 965702238 (6) Tracheobronchitis Current Visit: Yes Status: Chronic Code(s): J40 - BRONCHITIS, NOT SPECIFIED ACUTE OR CHRONIC SNOMED Code(s): 12967364 (7) New onset a-fib Current Visit: Yes Status: Acute Code(s): I48.91 - UNSPECIFIED ATRIAL FIBRILLATION SNOMED Code(s): 53511305 Plan: 1. Continue aspirin, statin, beta billy. Will increase beta billy therapy as tolerated. Aldactone restarted by Dr. Perry. Lisinopril restarted by Dr. Perry, however discontinued secondary to bump in creatinine. 2. Continue amiodarone for A. fib prophylaxis. Will restart anticoagulation after all lines and tubes have been discontinued. 3. Encourage incentive spirometry use 10 times every hour. 4. Increase activity, ambulate in hallway. PT/OT/cardiac rehab following 5. Likely will discontinue mediastinal chest tubes today. Will separate right and left pleural chest tubes. 6. Will monitor daily labs and x-rays. 7. GI/DVT prophylaxis. 8. Insulin drip/diabetic management per primary care service. 9. Keep Mary catheter for 1 more day for strict accurate I and O's. 10. More recommendations to follow. Time with Patient: Greater than 30
--- NOTE | 2017-06-13 10:01 | P.PN ---
Subjective Progress Note Date: 06/13/17 Principal diagnosis: Chest pain Patient is a 71-year-old male with a past medical history of BPH, neuropathy, Crohn's disease, and nephrolithiasis who presented initially to [facility] with complaints of shortness of breath. There he underwent extensive evaluation. His found to be tachycardic on arrival in EKG showed A. fib with RVR. Initial laboratory analysis was unremarkable. On chest x-ray he was diagnosed with pneumonia. He was given a dose of antibiotics and metoprolol 5 mg IV push. Arrangements were made to transfer him here for cardiology evaluation. Repeat EKG here in the ER showed sinus tachycardia with PACs. Since then he has undergone a prolonged hosital course this is my first evaluation in 12 days. He was maintained on Solu-Medrol, antibiotics, and bronchodilators. He was found to have congestive heart failure with an ejection fraction of 25-30% associated with severe global hypokinesis, moderate to severe mitral regurgitation, [id number] tricuspid regurgitation and mild pulmonary hypertension. He was started on Lasix 20 mg IV push every 12 hours. He had also been started on Xarelto for atrial fibrillation. He underwent cardiac catheterization on 06/03/17 was found to have severe distal left main and mild RCA, and moderate left circumflex disease. He also went into A. fib and was started on Cardizem for rapid ventricular response. Carotid doppler was preformed and and shows stenosis of less than 25% in both arteries. Her underwent RUT on 06/06 which showed moderate to sever mitral regurg. He underwent open heart surgery on 06/10 with Bypass grafting X 4 and mitral valve angioplasty. He then was taken back to the OR for sternal exploration and pot op hemorrhage. He has required multiple tranfusions of blood products including 5 untis rRBC, 4 FFP, 2 plts, and 10 of cryo. Patient seen and examined at bedside. He denies any chest pain. He denies any shortness of breath. No nausea or vomiting. No bowel movement since surgery. Objective - Vital Signs Vital signs: Vital Signs Temp 97.6 F 06/13/17 08:00 Pulse 69 06/13/17 09:00 Resp 17 06/13/17 09:00 BP 117/62 06/13/17 09:00 Pulse Ox 97 06/13/17 09:00 Intake & Output 06/12/17 06/13/1706/13/18 18:59 06:59 18:59 Intake Total 285 1233 249 Output Total 2075 830 260 Balance -1790 403 -11 Intake: IV 285 33 9 Lactated Ringers 1,000 ml 240 @ 20 mls/hr IV .Q24H CHERYL Rx#:[id number] pressure bags 45 33 9 Intake, IV Titration 0 Amount Insulin Regular 100 unit 0 In Sodium Chloride 0.9% 100 ml @ Per Protocol IV .Q0M CHERYL Rx#:[id number] Oral 1200 240 Output: Chest Tube Drainage 450 290 140 Right/Left Mediastinal 140 100 70 Right/Left Pleural Chest 310 190 70 Tube Urine 1625 540 120 Other: Voiding Method Indwelling Catheter Indwelling Catheter Indwelling Catheter ABP, PAP, CO, CI - Last Documented Arterial Blood Pressure 61/37 Pulmonary Artery Pressure 47/22 Cardiac Output 5.2 Cardiac Index 2.5 - Exam General: non toxic, mild distress, appears at stated age Derm: warm, dry Head: atraumatic, normocephalic, symmetric Eyes: EOMI, no lid lag, anicteric sclera Mouth: no lip lesion, mucus membranes moist Cardiovascular: S1S2 reg, no murmur, Lungs: decreased bs bilateral, no rhonchi, no rales , no accessory muscle use, CT in place and mediastinal tubes Abdominal: soft, nontender to palpation, no guarding, no appreciable organomegaly Ext: no gross muscle atrophy, trace edema, no contractures Neuro: CN II-XI grossly intact, no focal neuro deficits Psych: Alert, oriented, appropriate affect - Labs CBC & Chem 7: 06/13/17 04:55 06/13/17 04:55 Labs: Abnormal Lab Results - Last 24 Hours (Table) 06/12/17 06/12/17 06/12/17 Range/Units 11:01 12:03 17:10 WBC (3.8-10.6) k/uL RBC (4.30-5.90) m/uL Hgb (13.0-17.5) gm/dL Hct (39.0-53.0) % Neutrophils # (1.3-7.7) k/uL Lymphocytes # (1.0-4.8) k/uL Sodium (137-145) mmol/L BUN (9-20) mg/dL Glucose (74-99) mg/dL POC Glucose (mg/dL) 129 H 116 H 143 H (75-99) mg/dL Calcium (8.4-10.2) mg/dL Magnesium (1.6-2.3) mg/dL Total Protein (6.3-8.2) g/dL Albumin (3.5-5.0) g/dL 06/12/17 06/13/17 06/13/17 Range/Units 20:31 04:55 04:55 WBC 11.9 H (3.8-10.6) k/uL RBC 2.65 L (4.30-5.90) m/uL Hgb 7.4 L (13.0-17.5) gm/dL Hct 23.3 L (39.0-53.0) % Neutrophils # 10.8 H (1.3-7.7) k/uL Lymphocytes # 0.6 L (1.0-4.8) k/uL Sodium 135 L (137-145) mmol/L BUN 34 H (9-20) mg/dL Glucose 106 H (74-99) mg/dL POC Glucose (mg/dL) 142 H (75-99) mg/dL Calcium 8.2 L (8.4-10.2) mg/dL Magnesium 2.4 H (1.6-2.3) mg/dL Total Protein 4.9 L (6.3-8.2) g/dL Albumin 3.1 L (3.5-5.0) g/dL 06/13/17 Range/Units 07:01 WBC (3.8-10.6) k/uL RBC (4.30-5.90) m/uL Hgb (13.0-17.5) gm/dL Hct (39.0-53.0) % Neutrophils # (1.3-7.7) k/uL Lymphocytes # (1.0-4.8) k/uL Sodium (137-145) mmol/L BUN (9-20) mg/dL Glucose (74-99) mg/dL POC Glucose (mg/dL) 141 H (75-99) mg/dL Calcium (8.4-10.2) mg/dL Magnesium (1.6-2.3) mg/dL Total Protein (6.3-8.2) g/dL Albumin (3.5-5.0) g/dL Assessment and Plan Assessment: MANDY, mild - due to combination of relative hypotension and diuresis, not related to surgery - hold off on ACEI today due to rise in creatinine - Monitor renal function closely with needed diuresis with aldactone - avoid additional nephrotoxic agents Constipation - continue with bowel regiment CAD with severe mitral regurg - s/p CABG X4 with mitral valve repair. - management per CT surgery Ischemic cardiomyopathy with moderate plumonary HTN, EF 25-30% with acute exacerbation - ASA, statin, BB, aldactone hold off on ACEI at this time due to increasing creatinine - cardio recs Acute blood loss anemia - stable - follow CBC Glucose management - BS well controlled without intervention A fib with RVR - amiodarone - anticoagulation once okay with CT surgery HTN, controlled - on metoprolol - follow BP BPH - doxazosin was stopped due need use of multiple BP medications - will start flomax with hope to Agustina ramirez in AM Chron's disease - continue home medication regiment Bronchitis, Failed outpatient treatment, resolved DVT prophylaxis: heparin Discussed with: Patient, family, nursing A total of 45 minutes was spent on the care of this complex patient more than 50 % of the time was spent in counseling and care coordination.
[2017-06-13] MEDS: TAMSULOSIN 0.4 MG CAP.ER.24H PO SCH (10:43)
--- NOTE | 2017-06-13 11:26 | P.PN ---
Subjective Progress Note Date: 06/13/17 Principal diagnosis: Status post mitral valve repair and four-vessel bypass grafting Progress note dated 06/13/2017 71-year-old male postop day #3 status post mitral valve repair and four-vessel bypass grafting. The patient seemed be doing relatively well. The patient's been weaned down to 2 L nasal cannula. Not receiving any IV fluids. The patient's chest x-ray does show evidence of mild fluid overload. The patient has a history of diffuse emphysema bilateral pleural effusions atrial fibrillation heart failure BPH Crohn's disease hypertension and kidney stones. Ejection fraction is 25-35%. Anyway, the patient seemed be doing relatively well. No major issues or complaints. One chest tube removed today. The patient denies any chest pain or chest discomfort. Minimal shortness of breath. Doing reasonably well on his incentive spirometer. Objective - Vital Signs Vital signs: Vital Signs Temp 97.6 F 06/13/17 08:00 Pulse 69 06/13/17 10:00 Resp 24 06/13/17 10:00 BP 106/57 06/13/17 10:00 Pulse Ox 100 06/13/17 10:00 Intake & Output 06/12/17 06/13/17 06/13/17 18:59 06:59 18:59 Intake Total 285 1233 252 Output Total 2075 830 345 Balance -1790 403 -93 Intake: IV 285 33 12 Lactated Ringers 1,000 ml 240 @ 20 mls/hr IV .Q24H [facility] Rx#:[id number] pressure bags 45 33 12 Intake, IV Titration 0 Amount Insulin Regular 100 unit 0 In Sodium Chloride 0.9% 100 ml @ Per Protocol IV .Q0M CHERYL Rx#:[id number] Oral 1200 240 Output: Chest Tube Drainage 450 290 190 Right/Left Mediastinal 140 100 100 Right/Left Pleural Chest 310 190 90 Tube Urine 1625 540 155 Other: Voiding Method Indwelling Catheter Indwelling Catheter Indwelling Catheter ABP, PAP, CO, CI - Last Documented Arterial Blood Pressure 61/37 Pulmonary Artery Pressure 47/22 Cardiac Output 5.2 Cardiac Index 2.5 - Exam No acute distress, oriented 3. Nasal O2 in place. HEENT examination is grossly unremarkable. Mucous membranes are moist. No oral lesions. Neck supple. Full range of motion. No adenopathy thyromegaly or neck vein distention. Cardiovascular examination reveals regular rhythm rate. S1-S2 normal. No S3 or S4. No discernible murmur noted. Lungs reveal mostly clear breath sounds. His breath sounds are equal bilaterally. Minimal diffuse rhonchi and a few scattered crackles are noted. Breath sounds equal bilaterally. No wheezes. Abdomen soft bowel sounds are heard. No masses or tenderness. Extremities are intact. No cyanosis clubbing or edema. Skin is without rash or lesion. Neurologic examination is brief but nonfocal. - Labs CBC & Chem 7: 06/13/17 04:55 06/13/17 04:55 Labs: Abnormal Lab Results - Last 24 Hours (Table) 06/12/17 06/12/17 06/12/17 Range/Units 12:03 17:10 20:31 WBC (3.8-10.6) k/uL RBC (4.30-5.90) m/uL Hgb (13.0-17.5) gm/dL Hct (39.0-53.0) % Neutrophils # (1.3-7.7) k/uL Lymphocytes # (1.0-4.8) k/uL Sodium (137-145) mmol/L BUN (9-20) mg/dL Glucose (74-99) mg/dL POC Glucose (mg/dL) 116 H 143 H 142 H (75-99) mg/dL Calcium (8.4-10.2) mg/dL Magnesium (1.6-2.3) mg/dL Total Protein (6.3-8.2) g/dL Albumin (3.5-5.0) g/dL 06/13/17 06/13/17 06/13/17 Range/Units 04:55 04:55 07:01 WBC 11.9 H (3.8-10.6) k/uL RBC 2.65 L (4.30-5.90) m/uL Hgb 7.4 L (13.0-17.5) gm/dL Hct 23.3 L (39.0-53.0) % Neutrophils # 10.8 H (1.3-7.7) k/uL Lymphocytes # 0.6 L (1.0-4.8) k/uL Sodium 135 L (137-145) mmol/L BUN 34 H (9-20) mg/dL Glucose 106 H (74-99) mg/dL POC Glucose (mg/dL) 141 H (75-99) mg/dL Calcium 8.2 L (8.4-10.2) mg/dL Magnesium 2.4 H (1.6-2.3) mg/dL Total Protein 4.9 L (6.3-8.2) g/dL Albumin 3.1 L (3.5-5.0) g/dL Assessment and Plan Assessment: Assessment Postop day #3, status post mitral valve repair and bypass grafting, four-vessel Severe multivessel coronary artery disease with severe mitral regurgitation Significant cardiomyopathy with ejection fraction of 25-30% Pulmonary hypertension Diffuse centrilobular emphysema Bilateral pleural effusion History of atrial fibrillation with RVR Systolic heart failure BPH Crohn's disease Hypertension Kidney stones Plan: Plan dated 06/13/2017 The patient seemed be doing reasonably well. We'll continue with deep breathing coughing and clearing of secretions. We'll continue with incentive spirometry. The patient will continue on [facility] nutritional support and other therapies. The patient is not receiving any IV fluids. The patient's postop day #3. We'll continue to follow closely. Prognosis is guarded. Time with Patient: Greater than 30
[2017-06-13 11:55] LABS: Glucose,Whole Blood 122 mg/dL (75-99)
[2017-06-13] MEDS: MAGNESIUM HYDROXIDE 2,400 MG/10 ML CUP PO PRN (13:58)
[2017-06-13] MEDS: LACTATED RINGERS 1,000 ML IV SCH (17:08)
[2017-06-13 17:23] LABS: Glucose,Whole Blood 125 mg/dL (75-99)
--- NOTE | 2017-06-13 19:34 | XR ---
EXAMINATION TYPE: XR chest 1V portable DATE OF EXAM: 06/13/2017 Comparison: 06/13/2017 Clinical History: 71-year-old male sternum clicking Findings: Median sternotomy wires are present. Clips. Prosthetic aortic valve. Heart remains mildly enlarged. D iffuse interstitial and vascular prominence. Trace left effusion. Similar patchy bibasilar opacities. Bilateral chest tubes are present. No appreciable pneumothorax. A right IJ sheath remains in place. Impression: 1. Continued mild pulmonary vascular congestion. 2. Trace left effusion. Similar patchy bibasilar opacities likely atelectasis. 3. Bilateral chest tubes without appreciable pneumothorax.
[2017-06-13 20:15] LABS: Glucose,Whole Blood 148 mg/dL (75-99)
[2017-06-13] MEDS: SENNOSIDES-DOCUSATE SODIUM 1 EACH TAB PO SCH (20:28)
[2017-06-13] MEDS: hydrALAZINE HCL 25 MG TAB PO SCH (20:28)
[2017-06-14 04:57] LABS: Basophils % (A) 0 %; Eosinophils % (A) 0 %; HCT 25.9 % (39.0-53.0); Hypochromasia Slight; Lymphocytes # (A) 0.7 k/uL (1.0-4.8); Lymphocytes % (A) 6 %; MCH 27.7 pg (25.0-35.0); MCV 89.5 fL (80.0-100.0); Mean Platelet Volume 8.4; Monocytes # (A) 0.5 k/uL (0-1.0); Monocytes % (A) 4 %; Neutrophils % (A) 90 %; Platelet Count 218 k/uL (150-450); RBC 2.89 m/uL (4.30-5.90); RDW 14.7 % (11.5-15.5); WBC 12.3 k/uL (3.8-10.6)
[2017-06-14 05:06] LABS: Albumin 3.2 g/dL (3.5-5.0); Calcium 8.1 mg/dL (8.4-10.2); Magnesium 2.5 mg/dL (1.6-2.3); Phosphorus 3.2 mg/dL (2.5-4.5); Potassium 5.1 mmol/L (3.5-5.1); Total Bilirubin 0.9 mg/dL (0.2-1.3); Total Protein 5.1 g/dL (6.3-8.2)
[2017-06-14 06:48] LABS: Glucose,Whole Blood 117 mg/dL (75-99)
[2017-06-14] MEDS: HYDROcodone/APAP 5-325MG 1 EACH TAB PO PRN ×4 (06:50→21:55)
--- NOTE | 2017-06-14 06:56 | XR ---
EXAMINATION TYPE: XR chest 1V portable DATE OF EXAM: 06/14/2017 HISTORY: post cardiac surgery. REFERENCE: Previous study dated 06/13/2017. FINDINGS: There has been a midline sternotomy. There is a right internal jugular sheath in place. The re are bilateral chest tubes in place. Heart is enlarged. There is bibasilar airspace disease. There is mild vascular prominence without fra nk interstitial change. There has been no significant interval change in the appearance of the chest. IMPRESSION: NO SIGNIFICANT INTERVAL CHANGE IN APPEARANCE OF THE CHEST.
[2017-06-14] MEDS: IPRATROPIUM-ALBUTEROL 3 ML NEB INHALATION SCH ×4 (07:10→20:14)
[2017-06-14] MEDS: PANTOPRAZOLE 40 MG TABLET PO SCH (08:30)
[2017-06-14] MEDS: INSULIN ASPART 100 UNIT/ML 1 ML 10 ML VIAL SQ SCH ×4 (08:52→20:24)
[2017-06-14] MEDS: hydrALAZINE HCL 25 MG TAB PO SCH ×3 (08:53→21:55)
[2017-06-14] MEDS: HEPARIN SODIUM,PORCINE 5,000 UNIT/ML 1 ML VIAL SQ SCH ×2 (08:53→16:58)
[2017-06-14] MEDS: ATORVASTATIN 40 MG TAB PO SCH (08:53)
[2017-06-14] MEDS: TAMSULOSIN 0.4 MG CAP.ER.24H PO SCH (08:53)
[2017-06-14] MEDS: ASPIRIN 325 MG TAB PO SCH (08:53)
--- NOTE | 2017-06-14 08:53 | P.PN ---
Subjective Progress Note Date: 06/14/17 Principal diagnosis: Multivessel coronary artery disease, mitral regurgitation. Acute on chronic systolic heart failure with ejection fraction 20-25%. Cardiomyopathy. Previous medical history of Crohn's, BPH, previous tobacco dependence with current FEV1 58% of predicted. Recent tracheobronchitis. New-onset paroxysmal atrial fibrillation, treated preoperatively with amiodarone and Xarelto. POD #4 urgent coronary artery bypass grafting 4 with the left internal mammary artery graft to LAD, reverse saphenous vein grafts to obtuse marginal, high diagonal, right coronary arteries. Mitral valve annuloplasty with 26 mm physio- Ring. Modified Schuler maze procedure with complete left-sided lesion set and ligation of the left atrial appendage. Endovascular vein harvest. Transesophageal echocardiogram by anesthesia. Acute blood loss anemia, acute postoperative hemorrhage, an unexpected but potential outcome of surgery. POD #4 sternal reexploration for bleeding Patient's currently sitting up in the chair in no acute distress. Denies any chest pain or discomfort, feels Geovany breath than yesterday. States he did have some discomfort last night feeling his sternal bone clicking, currently has resolved. Ambulated in the hallway yesterday. Objective - Vital Signs Vital signs: Vital Signs Temp 98.0 F 06/14/17 04:00 Pulse 60 06/14/17 07:29 Resp 21 06/14/17 07:00 BP 97/55 06/14/17 07:00 Pulse Ox 97 06/14/17 07:00 Intake & Output 06/13/17 06/14/17 06/14/17 18:59 06:59 18:59 Intake Total 756 536 3 Output Total 870 908 75 Balance -114 -372 -72 Weight 87.4 kg Intake: IV 36 36 3 pressure bags 36 36 3 Oral 720 500 Output: Chest Tube Drainage 430 378 30 Chest Tube Left 140 200 20 Chest Tube Right 100 178 10 Right/Left Mediastinal 100 Right/Left Pleural Chest 90 Tube Urine 440 530 45 Other: Voiding Method Indwelling Catheter Indwelling Catheter ABP, PAP, CO, CI - Last Documented Arterial Blood Pressure 61/37 Pulmonary Artery Pressure 47/22 Cardiac Output 5.2 Cardiac Index 2.5 - Constitutional General appearance: Present: cooperative, no acute distress - Respiratory Details: Lungs sounds diminished bilaterally. Respirations even, nonlabored. Currently on room air with oxygen saturation 94%. Able to achieve 1750 mL on his incentive spirometry. Productive cough with light yellow sputum. Right pleural chest tubes to continuous wall suction, 110 mL serosanguineous drainage overnight, 300 mL last 24 hours. Left pleural chest tube to continuous wall suction, 150 mL serosanguineous drainage overnight, 400 mL in the last 24 hours. Small air leak present in the left pleural chest tube with forceful coughing. - Cardiovascular Details: S1, S2 present. Regular rate and rhythm, sinus bradycardia on telemetry. A/V epicardial pacemaker wires present, connected to generator, AAI mode with a backup rate 50 bpm. Sternum stable. Palpable peripheral pulses bilaterally. No edema present. No calf pain or tenderness noted. Right internal jugular Cordis present. Heart hugger in place with patient demonstrating appropriate use. Antiembolism stockings, SCDs present. - Gastrointestinal Gastrointestinal Comment(s): Abdomen soft, nontender, nondistended. Active bowel sounds present 4 quadrants. Tolerating diet. Negative flatus, negative BM since surgery. - Genitourinary Genitourinary Comment(s): Mary present draining yellow urine with sediment. Output 40-50 mL per hour overnight. - Integumentary Integumentary Comment(s): Skin is warm and dry. Anterior chest incision well approximated cover dry intact dressing. Bilateral EVH sites well approximated. - Neurologic Neurologic: Present: CNII-XII intact - Musculoskeletal Musculoskeletal: Present: gait normal, strength equal bilaterally - Psychiatric Psychiatric: Present: A&O x's 3, appropriate affect, intact judgment & insight - Allied health notes Allied health notes reviewed: nursing - Labs CBC & Chem 7: 06/14/17 04:46 06/14/17 04:46 Labs: Abnormal Lab Results - Last 24 Hours (Table) 06/13/17 06/13/17 06/13/17 Range/Units 11:54 17:21 20:12 WBC (3.8-10.6) k/uL RBC (4.30-5.90) m/uL Hgb (13.0-17.5) gm/dL Hct (39.0-53.0) % Neutrophils # (1.3-7.7) k/uL Lymphocytes # (1.0-4.8) k/uL Sodium (137-145) mmol/L Chloride (98-107) mmol/L BUN (9-20) mg/dL Glucose (74-99) mg/dL POC Glucose (mg/dL) 122 H 125 H 148 H (75-99) mg/dL Calcium (8.4-10.2) mg/dL Magnesium (1.6-2.3) mg/dL Total Protein (6.3-8.2) g/dL Albumin (3.5-5.0) g/dL 06/14/17 06/14/17 06/14/17 Range/Units 04:46 04:46 06:47 WBC 12.3 H (3.8-10.6) k/uL RBC 2.89 L (4.30-5.90) m/uL Hgb 8.0 L (13.0-17.5) gm/dL Hct 25.9 L (39.0-53.0) % Neutrophils # 11.0 H (1.3-7.7) k/uL Lymphocytes # 0.7 L (1.0-4.8) k/uL Sodium 132 L (137-145) mmol/L Chloride 96 L (98-107) mmol/L BUN 37 H (9-20) mg/dL Glucose 116 H (74-99) mg/dL POC Glucose (mg/dL) 117 H (75-99) mg/dL Calcium 8.1 L (8.4-10.2) mg/dL Magnesium 2.5 H (1.6-2.3) mg/dL Total Protein 5.1 L (6.3-8.2) g/dL Albumin 3.2 L (3.5-5.0) g/dL - Imaging and Cardiology Chest x-ray: report reviewed, image reviewed Assessment and Plan (1) Mitral regurgitation Current Visit: Yes Status: Chronic Code(s): I34.0 - NONRHEUMATIC MITRAL ( VALVE) INSUFFICIENCY SNOMED Code(s): 55129166 (2) History of Crohn's disease Current Visit: Yes Status: Chronic Code(s): Z87.19 - PERSONAL HISTORY OF OTHER DISEASES OF THE DIGESTIVE SYSTEM SNOMED Code(s): 873697924640395 (3) Tobacco dependence in remission Current Visit: No Status: Resolved Code(s): F17.201 - NICOTINE DEPENDENCE, UNSPECIFIED, IN REMISSION SNOMED Code(s): 282127880 (4) Acute systolic heart failure Current Visit: Yes Status: Acute Code(s): I50.21 - ACUTE SYSTOLIC ( CONGESTIVE) HEART FAILURE SNOMED Code(s): 718637472 (5) Family history of heart disease Current Visit: Yes Status: Chronic Code(s): Z82.49 - FAMILY HX OF ISCHEM HEART DIS AND OTH DIS OF THE CIRC SYS SNOMED Code(s): 034078194 (6) Tracheobronchitis Current Visit: Yes Status: Chronic Code(s): J40 - BRONCHITIS, NOT SPECIFIED ACUTE OR CHRONIC SNOMED Code(s): 05625556 (7) New onset a-fib Current Visit: Yes Status: Acute Code(s): I48.91 - UNSPECIFIED ATRIAL FIBRILLATION SNOMED Code(s): 16510913 Plan: 1. Continue aspirin, statin, hydralazine, Aldactone. Lisinopril discontinued secondary to bump in creatinine. 2. Amiodarone and beta billy currently on hold secondary to bradycardia. Will restart when able. Will restart anticoagulation after all lines and tubes have been discontinued. 3. Encourage incentive spirometry use 10 times every hour. 4. Increase activity, ambulate in hallway. PT/OT/cardiac rehab following 5. Likely will discontinue right pleural chest tube today. 6. Will monitor daily labs and x-rays. 7. GI/DVT prophylaxis. 8. Diabetic management per primary care service. 9. Will discontinue Mary catheter today. Bladder scan for postvoid residual within 6 hours of Mary discontinuation. 10. Will give when necessary milk of magnesia to stimulate bowel. 11. More recommendations to follow.
[2017-06-14] MEDS: SPIRONOLACTONE 25 MG TAB PO SCH (08:54)
[2017-06-14] MEDS: MAGNESIUM HYDROXIDE 2,400 MG/10 ML CUP PO PRN (08:57)
--- NOTE | 2017-06-14 09:22 | P.PN ---
Subjective Progress Note Date: 06/14/17 Principal diagnosis: Status post mitral valve repair and four-vessel bypass grafting Progress note dated 06/13/2017 71-year-old male postop day #3 status post mitral valve repair and four-vessel bypass grafting. The patient seemed be doing relatively well. The patient's been weaned down to 2 L nasal cannula. Not receiving any IV fluids. The patient's chest x-ray does show evidence of mild fluid overload. The patient has a history of diffuse emphysema bilateral pleural effusions atrial fibrillation heart failure BPH Crohn's disease hypertension and kidney stones. Ejection fraction is 25-35%. Anyway, the patient seemed be doing relatively well. No major issues or complaints. One chest tube removed today. The patient denies any chest pain or chest discomfort. Minimal shortness of breath. Doing reasonably well on his incentive spirometer. Progress note dated 06/14/2017 71-year-old male postop day #4 status post mitral valve repair and four-vessel bypass grafting. The patient seemed be doing relatively well. He is just on room air. Not receiving any IV fluids. No chest pain or chest discomfort. No breathing difficulty. Not coughing or wheezing. Not producing any phlegm. Not coughing up any blood. The patient otherwise is doing reasonably well. Has a history of diffuse emphysema, bilateral pleural effusions, atrial fibrillation, heart failure, BPH, Crohn's disease, hypertension and kidney stones. His ejection fraction is only 25-30%. Objective - Vital Signs Vital signs: Vital Signs Temp 97.9 F 06/14/17 08:00 Pulse 69 06/14/17 08:00 Resp 20 06/14/17 08:00 BP 110/56 06/14/17 08:00 Pulse Ox 96 06/14/17 08:00 Intake & Output 06/13/17 06/14/17 06/14/17 18:59 06:59 18:59 Intake Total 756 536 6 Output Total 870 908 75 Balance -114 -372 -69 Weight 87.4 kg Intake: IV 36 36 6 pressure bags 36 36 6 Oral 720 500 Output: Chest Tube Drainage 430 378 30 Chest Tube Left 140 200 20 Chest Tube Right 100 178 10 Right/Left Mediastinal 100 Right/Left Pleural Chest 90 Tube Urine 440 530 45 Other: Voiding Method Indwelling Catheter Indwelling Catheter ABP, PAP, CO, CI - Last Documented Arterial Blood Pressure 61/37 Pulmonary Artery Pressure 47/22 Cardiac Output 5.2 Cardiac Index 2.5 - Exam No acute distress, oriented 3. Not receiving any supplemental oxygen. HEENT examination is grossly unremarkable. Mucous membranes are moist. No oral lesions. Neck supple. Full range of motion. No adenopathy thyromegaly or neck vein distention. Cardiovascular examination reveals regular rhythm rate. S1-S2 normal. No S3 or S4. No discernible murmur noted. Lungs reveal mostly clear breath sounds. His breath sounds are equal bilaterally. Minimal diffuse rhonchi and a few scattered crackles are noted. Breath sounds equal bilaterally. No wheezes. Abdomen soft bowel sounds are heard. No masses or tenderness. Extremities are intact. No cyanosis clubbing or edema. Skin is without rash or lesion. Neurologic examination is brief but nonfocal. - Labs CBC & Chem 7: 06/14/17 04:46 06/14/17 04:46 Labs: Abnormal Lab Results - Last 24 Hours (Table) 06/13/17 06/13/17 06/13/17 Range/Units 11:54 17:21 20:12 WBC (3.8-10.6) k/uL RBC (4.30-5.90) m/uL Hgb (13.0-17.5) gm/dL Hct (39.0-53.0) % Neutrophils # (1.3-7.7) k/uL Lymphocytes # (1.0-4.8) k/uL Sodium (137-145) mmol/L Chloride (98-107) mmol/L BUN (9-20) mg/dL Glucose (74-99) mg/dL POC Glucose (mg/dL) 122 H 125 H 148 H (75-99) mg/dL Calcium (8.4-10.2) mg/dL Magnesium (1.6-2.3) mg/dL Total Protein (6.3-8.2) g/dL Albumin (3.5-5.0) g/dL 06/14/17 06/14/17 06/14/17 Range/Units 04:46 04:46 06:47 WBC 12.3 H (3.8-10.6) k/uL RBC 2.89 L (4.30-5.90) m/uL Hgb 8.0 L (13.0-17.5) gm/dL Hct 25.9 L (39.0-53.0) % Neutrophils # 11.0 H (1.3-7.7) k/uL Lymphocytes # 0.7 L (1.0-4.8) k/uL Sodium 132 L (137-145) mmol/L Chloride 96 L (98-107) mmol/L BUN 37 H (9-20) mg/dL Glucose 116 H (74-99) mg/dL POC Glucose (mg/dL) 117 H (75-99) mg/dL Calcium 8.1 L (8.4-10.2) mg/dL Magnesium 2.5 H (1.6-2.3) mg/dL Total Protein 5.1 L (6.3-8.2) g/dL Albumin 3.2 L (3.5-5.0) g/dL Assessment and Plan Assessment: Assessment Postop day #4, status post mitral valve repair and bypass grafting, four-vessel Severe multivessel coronary artery disease with severe mitral regurgitation Significant cardiomyopathy with ejection fraction of 25-30% Pulmonary hypertension Diffuse centrilobular emphysema Bilateral pleural effusion History of atrial fibrillation with RVR Systolic heart failure BPH Crohn's disease Hypertension Kidney stones Plan: Plan dated 06/13/2017 The patient seemed be doing reasonably well. We'll continue with deep breathing coughing and clearing of secretions. We'll continue with incentive spirometry. The patient will continue on [facility] nutritional support and other therapies. The patient is not receiving any IV fluids. The patient's postop day #3. We'll continue to follow closely. Prognosis is guarded. Plan dated 06/14/2017 The patient seemed to do relatively well. Not receiving any supplemental oxygen. Doing well on his incentive spirometer. The patient is postop day #4. We'll continue to follow. Prognosis is guarded. Time with Patient: Less than 30
[2017-06-14 11:46] LABS: Glucose,Whole Blood 130 mg/dL (75-99)
--- NOTE | 2017-06-14 13:49 | P.PN ---
Subjective Progress Note Date: 06/14/17 (delayed charting patient seen at approximately 0815) Principal diagnosis: Chest pain Patient is a 71-year-old male with a past medical history of BPH, neuropathy, Crohn's disease, and nephrolithiasis who presented initially to [facility] with complaints of shortness of breath. There he underwent extensive evaluation. His found to be tachycardic on arrival in EKG showed A. fib with RVR. Initial laboratory analysis was unremarkable. On chest x-ray he was diagnosed with pneumonia. He was given a dose of antibiotics and metoprolol 5 mg IV push. Arrangements were made to transfer him here for cardiology evaluation. Repeat EKG here in the ER showed sinus tachycardia with PACs. Since then he has undergone a prolonged hosital course this is my first evaluation in 12 days. He was maintained on Solu-Medrol, antibiotics, and bronchodilators. He was found to have congestive heart failure with an ejection fraction of 25-30% associated with severe global hypokinesis, moderate to severe mitral regurgitation, xavivhuh-oh-jjngya tricuspid regurgitation and mild pulmonary hypertension. He was started on Lasix 20 mg IV push every 12 hours. He had also been started on Xarelto for atrial fibrillation. He underwent cardiac catheterization on 06/03/17 was found to have severe distal left main and mild RCA, and moderate left circumflex disease. He also went into A. fib and was started on Cardizem for rapid ventricular response. Carotid doppler was preformed and and shows stenosis of less than 25% in both arteries. Her underwent RUT on 06/06 which showed moderate to sever mitral regurg. He underwent open heart surgery on 06/10 with Bypass grafting X 4 and mitral valve angioplasty. He then was taken back to the OR for sternal exploration and pot op hemorrhage. He has required multiple tranfusions of blood products including 5 untis rRBC, 4 FFP, 2 plts, and 10 of cryo. He did have a mild bump in his Cr. Still has temporary pacer in place Patient seen and examined at bedside. Feeling well. Anxious to go home. Denies any chest pain. Having some odd feeling in his left chest tube. Slept well last night. No shortness of breath. Still has not had a bowel movement but he will again try more milk of magnesia. Objective - Vital Signs Vital signs: Vital Signs Temp 97.9 F 06/14/17 08:00 Pulse 54 L 06/14/17 12:00 Resp 20 06/14/17 12:00 BP 111/57 06/14/17 12:00 Pulse Ox 97 06/14/17 12:00 Intake & Output 06/13/17 06/14/17 06/14/17 18:59 06:59 18:59 Intake Total 756 536 252 Output Total 870 908 305 Balance -114 -372 -53 Weight 87.4 kg Intake: IV 36 36 12 pressure bags 36 36 12 Oral 720 500 240 Output: Chest Tube Drainage 430 378 100 Chest Tube Left 140 200 50 Chest Tube Right 100 178 50 Right/Left Mediastinal 100 Right/Left Pleural Chest 90 Tube Urine 440 530 205 Other: Voiding Method Indwelling Catheter Indwelling Catheter Urinal ABP, PAP, CO, CI - Last Documented Arterial Blood Pressure 61/37 Pulmonary Artery Pressure 47/22 Cardiac Output 5.2 Cardiac Index 2.5 - Exam General: non toxic, no distress, appears at stated age Derm: warm, dry Head: atraumatic, normocephalic, symmetric Eyes: EOMI, no lid lag, anicteric sclera Mouth: no lip lesion, mucus membranes moist Cardiovascular: S1S2 reg, no murmur, Lungs: Rhonchi left base , no accessory muscle use, CTs in place and mediastinal tube Abdominal: soft, nontender to palpation, no guarding, no appreciable organomegaly Ext: no gross muscle atrophy, trace edema, no contractures Neuro: CN II-XI grossly intact, no focal neuro deficits Psych: Alert, oriented, appropriate affect - Labs CBC & Chem 7: 06/14/17 04:46 06/14/17 04:46 Labs: Abnormal Lab Results - Last 24 Hours (Table) 06/13/17 06/13/17 06/14/17 Range/Units 17:21 20:12 04:46 WBC 12.3 H (3.8-10.6) k/uL RBC 2.89 L (4.30-5.90) m/uL Hgb 8.0 L (13.0-17.5) gm/dL Hct 25.9 L (39.0-53.0) % Neutrophils # 11.0 H (1.3-7.7) k/uL Lymphocytes # 0.7 L (1.0-4.8) k/uL Sodium (137-145) mmol/L Chloride (98-107) mmol/L BUN (9-20) mg/dL Glucose (74-99) mg/dL POC Glucose (mg/dL) 125 H 148 H (75-99) mg/dL Calcium (8.4-10.2) mg/dL Magnesium (1.6-2.3) mg/dL Total Protein (6.3-8.2) g/dL Albumin (3.5-5.0) g/dL 06/14/17 06/14/17 06/14/17 Range/Units 04:46 06:47 11:44 WBC (3.8-10.6) k/uL RBC (4.30-5.90) m/uL Hgb (13.0-17.5) gm/dL Hct (39.0-53.0) % Neutrophils # (1.3-7.7) k/uL Lymphocytes # (1.0-4.8) k/uL Sodium 132 L (137-145) mmol/L Chloride 96 L (98-107) mmol/L BUN 37 H (9-20) mg/dL Glucose 116 H (74-99) mg/dL POC Glucose (mg/dL) 117 H 130 H (75-99) mg/dL Calcium 8.1 L (8.4-10.2) mg/dL Magnesium 2.5 H (1.6-2.3) mg/dL Total Protein 5.1 L (6.3-8.2) g/dL Albumin 3.2 L (3.5-5.0) g/dL Assessment and Plan Assessment: MANDY, mild - due to combination of relative hypotension and diuresis, not related to surgery - hold off on ACEI due to rise in creatinine, could likely start in AM if Cr stable and BP stable. - Monitor renal function closely - avoid additional nephrotoxic agents Constipation - continue with bowel regiment - if no results add miralax in AM Hyponatremia CAD with severe mitral regurg - s/p CABG X4 with mitral valve repair and sternal reexploriation - management per CT surgery Ischemic cardiomyopathy with moderate plumonary HTN, EF 25-30% with acute exacerbation - ASA, statin, BB (on hold due to bradycardia), aldactone hold off on ACEI at this time - cardio recs Acute blood loss anemia - stable - follow CBC Glucose management - BS well controlled without intervention A fib with RVR, now iwht bardycardia - amiodarone and BB on hold - anticoagulation once okay with CT surgery HTN, controlled - Currently on hydrazine with metoprolol D/C for bradycardia - follow BP BPH - doxazosin was stopped due need use of multiple BP medications - Continue flomax, D/C ramirez at the discretion of CT surgery. Chron's disease - continue home medication regiment Bronchitis, Failed outpatient treatment, resolved DVT prophylaxis: heparin Discussed with: Patient, family, nursing A total of 35 minutes was spent on the care of this complex patient more than 50 % of the time was spent in counseling and care coordination.
[2017-06-14 16:53] LABS: Glucose,Whole Blood 130 mg/dL (75-99)
[2017-06-14 20:25] LABS: Glucose,Whole Blood 134 mg/dL (75-99)
[2017-06-14] MEDS: SENNOSIDES-DOCUSATE SODIUM 1 EACH TAB PO SCH (20:25)
--- NOTE | 2017-06-15 00:19 | PN ---
PROGRESS NOTE This patient is status post coronary artery bypass surgery and mitral valve repair. He is sitting comfortably. He is ambulating in the hallway. The patient currently remains in junctional rhythm with a heart rate of 45-50 per minute. Blood pressure is 125/58 mmHg. First and second heart sounds are normal. Lungs exam reveals a few scattered wheezes. The patient's hemoglobin is 8.0. The patient's creatinine is between 1 and 1.2. In view of the severely impaired left ventricular systolic function, this patient would benefit more from the DORIE inhibitor rather than hydralazine. MMODL / IJN: [id number] /
[2017-06-15] MEDS: HEPARIN SODIUM,PORCINE 5,000 UNIT/ML 1 ML VIAL SQ SCH ×3 (01:14→16:57)
[2017-06-15 04:35] LABS: Basophils % (A) 0 %; Eosinophils % (A) 0 %; HCT 24.7 % (39.0-53.0); HGB 7.9 gm/dL (13.0-17.5); Lymphocytes # (A) 0.6 k/uL (1.0-4.8); Lymphocytes % (A) 6 %; MCH 28.6 pg (25.0-35.0); MCHC 32.1 g/dL (31.0-37.0); MCV 89.1 fL (80.0-100.0); Mean Platelet Volume 7.5; Monocytes # (A) 0.5 k/uL (0-1.0); Monocytes % (A) 5 %; Neutrophils # (A) 8.6 k/uL (1.3-7.7); Neutrophils % (A) 87 %; Platelet Count 260 k/uL (150-450); RBC 2.77 m/uL (4.30-5.90); RDW 15.3 % (11.5-15.5); WBC 9.9 k/uL (3.8-10.6)
[2017-06-15 05:02] LABS: Albumin 3.1 g/dL (3.5-5.0); Calcium 8.2 mg/dL (8.4-10.2); Magnesium 2.6 mg/dL (1.6-2.3); Phosphorus 3.2 mg/dL (2.5-4.5); Potassium 5.7 mmol/L (3.5-5.1); Total Protein 5.2 g/dL (6.3-8.2)
[2017-06-15 07:04] LABS: Glucose,Whole Blood 111 mg/dL (75-99)
[2017-06-15] MEDS ORDERED: INSULIN REGULAR 100 UNIT/ML VIAL IV ONE (08:16)
[2017-06-15] MEDS ORDERED: DEXTROSE 50%-WATER 50 ML SYRINGE IVP STA (08:16)
[2017-06-15] MEDS: IPRATROPIUM-ALBUTEROL 3 ML NEB INHALATION SCH ×4 (08:24→20:31)
[2017-06-15] MEDS ORDERED: FUROSEMIDE 10 MG/ML 2 ML VIAL IV ONE (08:38)
--- NOTE | 2017-06-15 08:38 | P.PN ---
Subjective Progress Note Date: 06/15/17 Principal diagnosis: Multivessel coronary artery disease, mitral regurgitation. Acute on chronic systolic heart failure with ejection fraction 20-25%. Cardiomyopathy. Previous medical history of Crohn's, BPH, previous tobacco dependence with current FEV1 58% of predicted. Recent tracheobronchitis. New-onset paroxysmal atrial fibrillation, treated preoperatively with amiodarone and Xarelto. POD #5 urgent coronary artery bypass grafting 4 with the left internal mammary artery graft to LAD, reverse saphenous vein grafts to obtuse marginal, high diagonal, right coronary arteries. Mitral valve annuloplasty with 26 mm physio- Ring. Modified Schuler maze procedure with complete left-sided lesion set and ligation of the left atrial appendage. Endovascular vein harvest. Transesophageal echocardiogram by anesthesia. Acute blood loss anemia, acute postoperative hemorrhage, an unexpected but potential outcome of surgery. POD #5 sternal reexploration for bleeding Patient's currently sitting up in the chair in no acute distress. Denies any chest pain or discomfort. Ambulated in the hallway yesterday. Objective - Vital Signs Vital signs: Vital Signs Temp 98.1 F 06/15/17 04:00 Pulse 53 L 06/15/17 08:24 Resp 17 06/15/17 07:00 BP 136/62 06/15/17 07:00 Pulse Ox 98 06/15/17 07:00 Intake & Output 06/14/17 06/15/17 06/15/17 18:59 06:59 18:59 Intake Total 852 1300 Output Total 775 1605 20 Balance 77 -305 -20 Weight 85.3 kg Intake: IV 12 pressure bags 12 Oral 840 1300 Output: Chest Tube Drainage 220 230 20 Chest Tube Left 170 230 20 Chest Tube Right 50 Urine 555 1375 Other: Voiding Method Urinal Urinal # Voids 1 # Bowel Movements 1 1 ABP, PAP, CO, CI - Last Documented Arterial Blood Pressure 61/37 Pulmonary Artery Pressure 47/22 Cardiac Output 5.2 Cardiac Index 2.5 - Constitutional General appearance: Present: cooperative, no acute distress - Respiratory Details: Lungs sounds diminished bilaterally. Respirations even, nonlabored. Currently on room air with oxygen saturation 96%. Able to achieve 6102-1771 mL on his incentive spirometry. Productive cough with light yellow sputum. Left pleural chest tube to continuous wall suction, 200 mL serosanguineous drainage overnight , 400 mL in the last 24 hours. No air leak present. - Cardiovascular Details: S1, S2 present. Regular rate and rhythm, junctional rhythm on telemetry with heart rate in the 50s. A/V epicardial pacemaker wires present, grounded. Sternum stable. Palpable peripheral pulses bilaterally. Trace bilateral lower extremity edema present. No calf pain or tenderness noted. Heart hugger in place with patient demonstrating appropriate use. Antiembolism stockings, SCDs present. - Gastrointestinal Gastrointestinal Comment(s): Abdomen soft, nontender, nondistended. Active bowel sounds present 4 quadrants. Tolerating diet. Positive bowel movement yesterday. - Genitourinary Genitourinary Comment(s): Mary discontinued yesterday. Voiding 100-300 mL per hour. - Integumentary Integumentary Comment(s): Skin is warm and dry. Anterior chest incision well approximated cover dry intact dressing. Bilateral EVH sites well approximated. - Neurologic Neurologic: Present: CNII-XII intact - Musculoskeletal Musculoskeletal: Present: gait normal, strength equal bilaterally - Psychiatric Psychiatric: Present: A&O x's 3, appropriate affect, intact judgment & insight - Allied health notes Allied health notes reviewed: nursing - Labs CBC & Chem 7: 06/15/17 04:26 06/15/17 04:26 Labs: Abnormal Lab Results - Last 24 Hours (Table) 06/14/17 06/14/17 06/14/17 Range/Units 11:44 16:51 20:20 RBC (4.30-5.90) m/uL Hgb (13.0-17.5) gm/dL Hct (39.0-53.0) % Neutrophils # (1.3-7.7) k/uL Lymphocytes # (1.0-4.8) k/uL Sodium (137-145) mmol/L Potassium (3.5-5.1) mmol/L Chloride (98-107) mmol/L BUN (9-20) mg/dL Creatinine (0.66-1.25) mg/dL POC Glucose (mg/dL) 130 H 130 H 134 H (75-99) mg/dL Calcium (8.4-10.2) mg/dL Magnesium (1.6-2.3) mg/dL AST (17-59) U/L Total Protein (6.3-8.2) g/dL Albumin (3.5-5.0) g/dL 06/15/17 06/15/17 06/15/17 Range/Units 04:26 04:26 07:02 RBC 2.77 L (4.30-5.90) m/uL Hgb 7.9 L (13.0-17.5) gm/dL Hct 24.7 L (39.0-53.0) % Neutrophils # 8.6 H (1.3-7.7) k/uL Lymphocytes # 0.6 L (1.0-4.8) k/uL Sodium 128 L (137-145) mmol/L Potassium 5.7 H (3.5-5.1) mmol/L Chloride 92 L (98-107) mmol/L BUN 35 H (9-20) mg/dL Creatinine 1.30 H (0.66-1.25) mg/dL POC Glucose (mg/dL) 111 H (75-99) mg/dL Calcium 8.2 L (8.4-10.2) mg/dL Magnesium 2.6 H (1.6-2.3) mg/dL AST 74 H (17-59) U/L Total Protein 5.2 L (6.3-8.2) g/dL Albumin 3.1 L (3.5-5.0) g/dL - Imaging and Cardiology Chest x-ray: image reviewed Assessment and Plan (1) Mitral regurgitation Current Visit: Yes Status: Chronic Code(s): I34.0 - NONRHEUMATIC MITRAL ( VALVE) INSUFFICIENCY SNOMED Code(s): 28893421 (2) History of Crohn's disease Current Visit: Yes Status: Chronic Code(s): Z87.19 - PERSONAL HISTORY OF OTHER DISEASES OF THE DIGESTIVE SYSTEM SNOMED Code(s): 073238035466577 (3) Tobacco dependence in remission Current Visit: No Status: Resolved Code(s): F17.201 - NICOTINE DEPENDENCE, UNSPECIFIED, IN REMISSION SNOMED Code(s): 143681439 (4) Acute systolic heart failure Current Visit: Yes Status: Acute Code(s): I50.21 - ACUTE SYSTOLIC ( CONGESTIVE) HEART FAILURE SNOMED Code(s): 503413020 (5) Family history of heart disease Current Visit: Yes Status: Chronic Code(s): Z82.49 - FAMILY HX OF ISCHEM HEART DIS AND OTH DIS OF THE CIRC SYS SNOMED Code(s): 602277389 (6) Tracheobronchitis Current Visit: Yes Status: Chronic Code(s): J40 - BRONCHITIS, NOT SPECIFIED ACUTE OR CHRONIC SNOMED Code(s): 21855431 (7) New onset a-fib Current Visit: Yes Status: Acute Code(s): I48.91 - UNSPECIFIED ATRIAL FIBRILLATION SNOMED Code(s): 78747465 Plan: 1. Continue aspirin, statin, hydralazine, Aldactone. Lisinopril discontinued secondary to elevation in creatinine. Will restart lisinopril and DC hydralazine when creatinine normalizes. 2. Amiodarone and beta billy currently on hold secondary to bradycardia. Will restart when able. Will restart anticoagulation after all lines and tubes have been discontinued. 3. Encourage incentive spirometry use 10 times every hour. 4. Increase activity, ambulate in hallway. PT/OT/cardiac rehab following 5. Will discontinue left pleural chest tube today. 6. Will monitor daily labs and x-rays. 7. GI/DVT prophylaxis. 8. Diabetic management per primary care service. 9. Insulin and dextrose IV for hyperkalemia. 10. Lasix 20 mg IV push 1 today. 11. Will transfer to [facility] today. 12. More recommendations to follow. Time with Patient: Greater than 30
[2017-06-15] MEDS: INSULIN ASPART 100 UNIT/ML 1 ML 10 ML VIAL SQ SCH ×4 (08:40→20:58)
[2017-06-15] MEDS: HYDROcodone/APAP 5-325MG 1 EACH TAB PO PRN ×3 (08:40→21:03)
[2017-06-15] MEDS: SPIRONOLACTONE 25 MG TAB PO SCH (08:41)
[2017-06-15] MEDS: PANTOPRAZOLE 40 MG TABLET PO SCH (08:41)
[2017-06-15] MEDS: ATORVASTATIN 40 MG TAB PO SCH (08:41)
[2017-06-15] MEDS: TAMSULOSIN 0.4 MG CAP.ER.24H PO SCH (08:41)
[2017-06-15] MEDS: hydrALAZINE HCL 25 MG TAB PO SCH ×3 (08:41→21:00)
[2017-06-15] MEDS: ASPIRIN 325 MG TAB PO SCH (08:41)
--- NOTE | 2017-06-15 09:17 | P.PN ---
Subjective Progress Note Date: 06/15/17 Principal diagnosis: Acute exacerbation of systolic congestive heart failure, new onset atrial fibrillation with RVR, valvular heart disease, acute exacerbation of COPD Coronary artery disease This is a very pleasant 71-year-old gentleman who follows with Dr. Mauricio Keith as his primary care physician. He has history of Crohn's disease, nephrolithiasis status post lithotripsy him a BPH, hypertension, tinnitus. He has has a history of previous tobacco dependence and suspected COPD. He has not been seen by a sales agent business services in the past. He had been having ongoing issues with shortness of breath, yellow productive sputum. He had been treated for bronchitis 2 with antibiotics and steroids. Never quite back to his baseline. He did have a fever of 102.4. He presented to the emergency room at [facility] with increasing shortness of breath, cough, congestion palpitations. He was found to be in atrial fibrillation with a rapid ventricular response and was subsequently transferred here to [facility] yesterday morning. His chest x-ray did reveal evidence of fluid volume overload and congestive heart failure. An echocardiogram revealed severely impaired left ventricular systolic function with ejection fraction 25-30%. There is also noted severe global hypokinesia. He has moderate to severe mitral regurgitation. Moderate to severe tricuspid regurgitation. Moderate pulmonary hypertension with an RVSP of 57.96 mmHg. ProBNP 6190. Creatinine 1.20. He has been initiated on Lasix 20 mg IV push every 12 hours. He is seen today in consultation on the selective care unit. He is currently sitting up in a chair at the bedside. He is awake and alert in no acute distress. He is breathing easier today as compared to yesterday. He is maintaining good O2 saturations in the 90s on room air. He has since converted back to normal sinus rhythm. He is afebrile. No fever chills or night sweats. No productive cough. The cultures reveal no growth to date. He has been initiated on Xarelto. He is also on bronchodilators, IV Solu-Medrol and antibiotics in the form of Augmentin. The patient is seen again today 06/03/2017 in follow-up on the selective care unit. He is currently resting comfortably in bed. He did undergo cardiac catheterization this morning. Report is pending. Further interventions are being discussed. He denies any shortness of breath currently. No chest pain or palpitations. He is currently maintaining good O2 saturations in the 90s on room air. He is hemodynamically stable. Blood and sputum cultures reveal no growth to date. White count 9.7. Hemoglobin 10.9. Creatinine 1.41. He is currently on bronchodilators, IV Solu-Medrol, Augmentin. Xarelto currently on hold. On 06/04/2017 patient seen in follow-up on selective care unit. Patient underwent cardiac catheterization on 06/03/2017 was found to have moderate disease in the distal left main and the mid RCA and moderate disease in the proximal left circumflex. In the plan is to treat him medically for his coronary artery disease. Yesterday in the afternoon patient back into atrial fibrillation with RVR, started on Cardizem drip, and currently his rate is ranging anywhere from 80-110 BPM. Patient had an episode of acute respiratory distress this morning, she was tachypneic, coughing, and was given 40 mg of IV Lasix for what appeared to be acute pulmonary edema. Chest x-ray was obtained, and showed pulmonary venous hypertension, and interstitial edema. Patient was placed on 100% nonrebreather, once releasing his FiO2 was weaned back down, and currently the patient is on 3 L per nasal cannula with O2 sat 94%. She remains on oral prednisone, Xarelto for anticoagulation. Responded well to IV diuretics. On 06/05/2088 seeing Cb for a follow-up. Obviously the patient is less short of breath compared to yesterday. Note that the patient went into an acute pulmonary edema yesterday and he became acutely short of breath. He responded nicely to diuretics. He is going to have a RUT to evaluate the mitral valve regurgitation today and its severity. The patient is still in atrial fibrillation. Rate is under better control and the patient is currently off the Cardizem drip. He has having no chest pain. No nausea. No vomiting. No cough or sputum production. Cardiology is on the case and the patient is currently anticoagulated with Xarelto. He is also on metoprolol 25 mg by mouth twice a day and amiodarone 400 mg by mouth twice a day and the patient is also on a combination of Lasix and Aldactone. The patient is also completing a course of Augmentin and a prednisone burst taper regarding acute bronchitis/ COPD exacerbation. For now the plan is to proceed with cardiac evaluation with RUT. On 06/06/2017, I'm seeing this patient for a follow-up. Overall poor status is stable and the patient is less short of breath compared to yesterday. He is still being investigated regarding his valvular disease knowing that he has severe mitral regurgitation and he may be a potentially candidate for mitral valve repair. History nature fibrillation at the rate is controlled. He is on anticoagulation for now and he is on Xarelto. No chest pain. No angina. No nausea. No vomiting. No swelling in lower extremities. On and off is still coughing and he is being treated with a prednisone burst taper regarding his COPD exacerbation is also on a course of Augmentin. The patient was seen by Dr. Reinalod Davila. He is on Lasix 40 mg IV every 12 hours. He is also on Aldactone 25 minutes by mouth daily. No other significant events over the past 24 hours. He is also on amiodarone 400 mg by mouth twice a day in addition to his beta billy 25 mg of metoprolol twice a day. On 06/07/2017, the patient is feeling much better. He is off oxygen. His emanating. A bedside spirometry was done and his FEV1 is normal to 58% of predicted consistent with COPD yet this can be and also a underestimation of the lung capacity knowing that the patient was in CHF and had lateral pleural effusions. In any rate his cardiac rhythm is back to sinus. He is having paroxysmal atrial fibrillation and this morning he was noted to be in sinus rhythm. No chest pain. No major swelling lower extremities. No altered mentation. He is completing a prednisone burst taper regarding his COPD exacerbation. I elected discussion about this case with cardiology and cardiothoracic surgery. The patient will need surgery knowing that he has severe mitral regurgitation. The images were reviewed by the surgeon. The consensus is that the patient will need an intra-aortic balloon pump placed to optimize his postoperative recovery. If surgery is being contemplated, this will be done probably on Thursday with insertion of intra-aortic balloon pump. The patient otherwise is doing well. He is on oral Lasix. Is on Zestril. Is on Lopressor. He is on a prednisone burst taper. No fever or chills. No other complaints otherwise for now. Patient was reevaluated today on 06/08/2017, patient is feeling great, asymptomatic, off the oxygen, looking forward for his planned surgery in the next 2 days. Patient apparently has severe mitral regurgitation, and he would require surgical intervention I believe it was scheduled for next one day. CBC was noted to be normal, basic metabolic profile is normal, bicarb is 36. Patient denies any cough wheezing or shortness of breath at present. The patient is seen again today 06/09/2017 in follow-up on the selective care unit. He is currently sitting up in a chair at the bedside. He is feeling quite well today. He denies any worsening shortness of breath, cough or congestion. His been maintaining good O2 saturations in the mid 90s on room air. He's been afebrile. Hemodynamically stable. No chest pain or palpitations. White count 9.4. Hemoglobin 11.9. Creatinine 0.94. Reevaluated today on 06/10/2017, patient underwent mitral valve repair, and four- vessel bypass today. Transferred back to the ICU on mechanical ventilation, and I evaluated the patient postoperatively. His ventilator settings were reviewed, patient is on tidal volume of 500, IMV rate of 12, PEEP of 8, and FiO2 of 100% at this point. ABG is pending. Chest x-ray showed mostly postoperative changes, and proper placement of endotracheal tube and chest tubes. Patient is fully sedated, and mechanically ventilated. Patient was reevaluated today on 06/11/2017, patient was still on mechanical ventilation earlier this morning, he had some weaning parameters earlier this morning that where reasonable but the patient had poor ABG on 40% FiO2. Hence we delayed the extubation until this morning. Upon my evaluation, the patient was noted to be doing well on CPAP, and I gave him a short trial of CPAP and pressure support were and the patient did extremely well with excellent tidal volumes and respiratory rate. Chest x-ray was reviewed and it showed minimal venous congestion, hence I proceeded to extubating the patient. Tolerated the extubation well, and I was still at bedside. CBC was reviewed WBC is 14.4 hemoglobin is 8.4 ABG this morning showed a pO2 of 80 pCO2 of 41 pH of 7.41. Basic metabolic profile was noted to be relatively normal. Renal functioning is normal. Meds were all reviewed. Reevaluated today on 06/12/2017, patient had episodes of shortness of breath last night, responded quite well to a dose of Lasix 40 mg IV push given 1. Today continues to have some shortness of breath, but his chest x-ray is showing improvement, his ABG is reasonable, and his O2 saturation is in the high 90s on 3 L nasal cannula. ABC was noted to be normal except for hemoglobin of 7.9. ABG this morning showed a pO2 of 76 pCO2 of 34 pH of 7.48. Renal profile is normal patient is putting out almost 100 mL of urine per hour. Chest x-ray showed minimal small pleural effusions consistent with mild congestive heart failure changes. No evidence of pneumonia. Progress note dated 06/13/2017 71-year-old male postop day #3 status post mitral valve repair and four-vessel bypass grafting. The patient seemed be doing relatively well. The patient's been weaned down to 2 L nasal cannula. Not receiving any IV fluids. The patient's chest x-ray does show evidence of mild fluid overload. The patient has a history of diffuse emphysema bilateral pleural effusions atrial fibrillation heart failure BPH Crohn's disease hypertension and kidney stones. Ejection fraction is 25-35%. Anyway, the patient seemed be doing relatively well. No major issues or complaints. One chest tube removed today. The patient denies any chest pain or chest discomfort. Minimal shortness of breath. Doing reasonably well on his incentive spirometer. Progress note dated 06/14/2017 71-year-old male postop day #4 status post mitral valve repair and four-vessel bypass grafting. The patient seemed be doing relatively well. He is just on room air. Not receiving any IV fluids. No chest pain or chest discomfort. No breathing difficulty. Not coughing or wheezing. Not producing any phlegm. Not coughing up any blood. The patient otherwise is doing reasonably well. Has a history of diffuse emphysema, bilateral pleural effusions, atrial fibrillation, heart failure, BPH, Crohn's disease, hypertension and kidney stones. His ejection fraction is only 25-30%. On 06/15/2017 patient seen in follow-up in intensive care unit. He is awake, alert, sitting up in the recliner, denies any acute distress, his incentive spirometry effort is around 1727-3112 ML. Lung sounds are positive for coarse crackles at bilateral bases. He is on room air, his O2 sat at 98%, hemodynamically stable, his in sinus rhythm with a rate of 69 BPM. His pain is reasonably controlled, he still has the left chest tube in place with about 400 mL of serosanguineous thin output. No air leak noted. Midsternal incision is clean dry and intact, Heart Hugger is in place, epicardial wires are grounded. Patient is tolerating oral diet. Per cardiothoracic surgery patient will be transferred out of the intensive care today. Objective - Vital Signs Vital signs: Vital Signs Temp 98.1 F 06/15/17 04:00 Pulse 59 L 06/15/17 08:36 Resp 17 06/15/17 07:00 BP 136/62 06/15/17 07:00 Pulse Ox 98 06/15/17 07:00 Intake & Output 06/14/17 06/15/17 06/15/17 18:59 06:59 18:59 Intake Total 852 1300 240 Output Total 775 1605 20 Balance 77 -305 220 Weight 85.3 kg Intake: IV 12 pressure bags 12 Oral 840 1300 240 Output: Chest Tube Drainage 220 230 20 Chest Tube Left 170 230 20 Chest Tube Right 50 Urine 555 1375 Other: Voiding Method Urinal Urinal # Voids 1 # Bowel Movements 1 1 ABP, PAP, CO, CI - Last Documented Arterial Blood Pressure 61/37 Pulmonary Artery Pressure 47/22 Cardiac Output 5.2 Cardiac Index 2.5 - Exam GENERAL EXAM: Alert, active, comfortable in no apparent distress. HEAD: Normocephalic. EYES: Normal reaction of pupils, equal size. NOSE: Clear with pink turbinates. THROAT: No erythema or exudates. NECK: No masses, no JVD. CHEST: Midsternal incision is clean dry and intact, heart hugger is in place, epicardial wires are grounded, left chest tube is to wall suction, there is thin serosanguineous output LUNGS: Equal air entry with coarse bibasilar crackles CVS: S1 and S2 normal regular rhythm. ABDOMEN: No hepatosplenomegaly, normal bowel sounds, no guarding or rigidity. SPINE: No scoliosis or deformity SKIN: No rashes CENTRAL NERVOUS SYSTEM: No focal deficits, tone is normal in all 4 extremities. EXTREMITIES: There is trace peripheral edema. No calf pain or tenderness noted. Antiembolism stockings are in place, SCDs present No clubbing, no cyanosis. Peripheral pulses are intact. - Labs CBC & Chem 7: 06/15/17 04:26 06/15/17 04:26 Labs: Abnormal Lab Results - Last 24 Hours (Table) 06/14/17 06/14/17 06/14/17 Range/Units 11:44 16:51 20:20 RBC (4.30-5.90) m/uL Hgb (13.0-17.5) gm/dL Hct (39.0-53.0) % Neutrophils # (1.3-7.7) k/uL Lymphocytes # (1.0-4.8) k/uL Sodium (137-145) mmol/L Potassium (3.5-5.1) mmol/L Chloride (98-107) mmol/L BUN (9-20) mg/dL Creatinine (0.66-1.25) mg/dL POC Glucose (mg/dL) 130 H 130 H 134 H (75-99) mg/dL Calcium (8.4-10.2) mg/dL Magnesium (1.6-2.3) mg/dL AST (17-59) U/L Total Protein (6.3-8.2) g/dL Albumin (3.5-5.0) g/dL 06/15/17 06/15/17 06/15/17 Range/Units 04:26 04:26 07:02 RBC 2.77 L (4.30-5.90) m/uL Hgb 7.9 L (13.0-17.5) gm/dL Hct 24.7 L (39.0-53.0) % Neutrophils # 8.6 H (1.3-7.7) k/uL Lymphocytes # 0.6 L (1.0-4.8) k/uL Sodium 128 L (137-145) mmol/L Potassium 5.7 H (3.5-5.1) mmol/L Chloride 92 L (98-107) mmol/L BUN 35 H (9-20) mg/dL Creatinine 1.30 H (0.66-1.25) mg/dL POC Glucose (mg/dL) 111 H (75-99) mg/dL Calcium 8.2 L (8.4-10.2) mg/dL Magnesium 2.6 H (1.6-2.3) mg/dL AST 74 H (17-59) U/L Total Protein 5.2 L (6.3-8.2) g/dL Albumin 3.1 L (3.5-5.0) g/dL Assessment and Plan Plan: Assessment: #1 severe multivessel coronary artery disease with severe amount mitral regurgitation, status post mitral valve repair and bypass grafting, four-vessel , postop day 5 #2 cardiomyopathy with ejection fraction of 25-30% #3 atrial fibrillation with rapid ventricular response. Currently in a normal sinus rhythm. #4 Moderate pulmonary hypertension. #5 Valvular heart disease. #6 diffuse central lobar emphysema #7. Bilateral pleural effusion #8. Systolic heart failure #9 History of previous tobacco dependence. #10 Hypertension. #11 Crohn's disease. Plan: Patient is progressing well, vital signs are stable, remains in sinus rhythm, ambulating. Patient will be given 1 dose of IV Lasix for the vascular prominence seen on chest x-ray per cardiothoracic surgery today, his pain is reasonably controlled. Patient is stable for transfer out of the intensive care unit today to [facility] care will continue to follow. I performed a history & physical examination of the patient and discussed their management with my nurse practitioner, Parvin Arango. I reviewed the nurse practitioner's note and agree with the documented findings and plan of care. Lung sounds are positive for coarse bibasilar crackles. The findings and the impression was discussed with the patient. I attest to the documentation by the nurse practitioner. Time with Patient: Greater than 30
--- NOTE | 2017-06-15 10:37 | P.PN ---
Subjective Progress Note Date: 06/15/17 Patient remains hemodynamically stable. Patient remains in junctional rhythm at a rate of 45-50 bpm he is ambulating in the hallway since creatinine is 1.2. X-ray suggestive of mild congestive cardiac failure. Patient did receive Lasix this morning. Objective - Vital Signs Vital signs: Vital Signs Temp 98.5 F 06/15/17 09:00 Pulse 52 L 06/15/17 10:00 Resp 29 H 06/15/17 10:00 BP 122/76 06/15/17 10:00 Pulse Ox 99 06/15/17 10:00 Intake & Output 06/14/17 06/15/17 06/15/17 18:59 06:59 18:59 Intake Total 852 1300 240 Output Total 775 1605 760 Balance 77 -305 -520 Weight 85.3 kg Intake: IV 12 pressure bags 12 Oral 840 1300 240 Output: Chest Tube Drainage 220 230 60 Chest Tube Left 170 230 60 Chest Tube Right 50 Urine 555 1375 700 Other: Voiding Method Urinal Urinal Urinal # Voids 1 # Bowel Movements 1 1 ABP, PAP, CO, CI - Last Documented Arterial Blood Pressure 61/37 Pulmonary Artery Pressure 47/22 Cardiac Output 5.2 Cardiac Index 2.5 - Exam Patient's vital signs are reviewed. The patient is alert awake and in no acute distress. HEENT negative. Neck-supple no increase in JVP noted no carotid bruits noted. Chest-symmetrical. Heart-first and second heart sounds are normal. No S3 or S4 is noted. No significant murmurs are noted. Lungs bilateral good at entry is noted. Bilateral rales are noted in the lower one third of the lung hernandez. Abdomen-soft. Liver and spleen are not enlarged. The bowel sounds are normal. No tenderness noted Extremities-peripheral pulses since are 2+. No significant leg edema noted. Neuro-no significant gross abnormality noted. - Labs CBC & Chem 7: 06/15/17 04:26 06/15/17 04:26 Labs: Abnormal Lab Results - Last 24 Hours (Table) 06/14/17 06/14/17 06/14/17 Range/Units 11:44 16:51 20:20 RBC (4.30-5.90) m/uL Hgb (13.0-17.5) gm/dL Hct (39.0-53.0) % Neutrophils # (1.3-7.7) k/uL Lymphocytes # (1.0-4.8) k/uL Sodium (137-145) mmol/L Potassium (3.5-5.1) mmol/L Chloride (98-107) mmol/L BUN (9-20) mg/dL Creatinine (0.66-1.25) mg/dL POC Glucose (mg/dL) 130 H 130 H 134 H (75-99) mg/dL Calcium (8.4-10.2) mg/dL Magnesium (1.6-2.3) mg/dL AST (17-59) U/L Total Protein (6.3-8.2) g/dL Albumin (3.5-5.0) g/dL 06/15/17 06/15/17 06/15/17 Range/Units 04:26 04:26 07:02 RBC 2.77 L (4.30-5.90) m/uL Hgb 7.9 L (13.0-17.5) gm/dL Hct 24.7 L (39.0-53.0) % Neutrophils # 8.6 H (1.3-7.7) k/uL Lymphocytes # 0.6 L (1.0-4.8) k/uL Sodium 128 L (137-145) mmol/L Potassium 5.7 H (3.5-5.1) mmol/L Chloride 92 L (98-107) mmol/L BUN 35 H (9-20) mg/dL Creatinine 1.30 H (0.66-1.25) mg/dL POC Glucose (mg/dL) 111 H (75-99) mg/dL Calcium 8.2 L (8.4-10.2) mg/dL Magnesium 2.6 H (1.6-2.3) mg/dL AST 74 H (17-59) U/L Total Protein 5.2 L (6.3-8.2) g/dL Albumin 3.1 L (3.5-5.0) g/dL Assessment and Plan Assessment: Patient remains hemodynamically stable patient's stay is currently in junctional rhythm. H and would be anticoagulated once all the lines are removed.
[2017-06-15 12:01] LABS: Glucose,Whole Blood 90 mg/dL (75-99)
--- NOTE | 2017-06-15 12:08 | XR ---
EXAMINATION TYPE: XR chest 1V portable DATE OF EXAM: 06/15/2017 CLINICAL HISTORY: Difficulty breathing progress study. Post open cardiac surgery. TECHNIQUE: Single AP portable upright view of the chest is obtained. COMPARISON: Chest x-ray from one day earlier and older studies. FINDINGS: There is interval removal of right-sided chest tube and right internal jugular cordis wright th. There is stable left basilar chest tube. Post CABG changes with mediastinal clips and sternal wires is redemonstrated. There is stable cardiom egaly. There is bibasilar opacity consistent with atelectasis and/or infiltrate and likely small left greater than right pleural effusions all redemonstrated. Suspect tiny left apical pneumothorax despi te chest tube placement seen better on current study. The osseous structures are intact. IMPRESSION: Interval removal of right-sided chest tube. Suspect tiny left apical pneumothorax despite left basilar chest tube. Other findings stable as there is cardiomegaly with tiny left greater than right pleural effusions and bibasilar atelectasis and/or infiltrate all redemonstrated.
[2017-06-15] MEDS: CYANOCOBALAMIN 500 MCG TAB PO SCH (12:32)
[2017-06-15] MEDS: MULTIVITAMINS, THERA 1 EACH TAB PO SCH (12:32)
[2017-06-15] MEDS: CHOLECALCIFEROL 1,000 UNIT TAB PO SCH (12:33)
--- NOTE | 2017-06-15 13:14 | P.PN ---
Subjective Progress Note Date: 06/15/17 Principal diagnosis: CAD s/p CABG Patient is progressing well, no chest pain or shortness of breath. Objective - Vital Signs Vital signs: Vital Signs Temp 98.3 F 06/15/17 12:00 Pulse 54 L 06/15/17 12:00 Resp 22 06/15/17 12:00 BP 132/64 06/15/17 12:00 Pulse Ox 98 06/15/17 12:00 Intake & Output 06/14/17 06/15/17 06/15/17 18:59 06:59 18:59 Intake Total 852 1300 240 Output Total 775 1605 1485 Balance 41 -305 1246 Weight 85.3 kg 85.3 kg Intake: IV 12 pressure bags 12 Oral 840 1300 240 Output: Chest Tube Drainage 220 230 60 Chest Tube Left 170 230 60 Chest Tube Right 50 Urine 555 1375 1425 Other: Voiding Method Urinal Urinal Urinal # Voids 1 # Bowel Movements 1 1 ABP, PAP, CO, CI - Last Documented Arterial Blood Pressure 61/37 Pulmonary Artery Pressure 47/22 Cardiac Output 5.2 Cardiac Index 2.5 - Exam General: non toxic, no distress, appears at stated age Derm: warm, dry Head: atraumatic, normocephalic, symmetric Eyes: EOMI, no lid lag, anicteric sclera Mouth: no lip lesion, mucus membranes moist Cardiovascular: Bradycardic, S1S2 within normal limits, reg, no murmur, Lungs: Rhonchi left base , no accessory muscle use, CTs in place and mediastinal tube Abdominal: soft, nontender to palpation, no guarding, no appreciable organomegaly Ext: no gross muscle atrophy, trace edema, no contractures Neuro: CN II-XI grossly intact, no focal neuro deficits Psych: Alert, oriented, appropriate affect - Labs CBC & Chem 7: 06/15/17 04:26 06/15/17 04:26 Labs: Abnormal Lab Results - Last 24 Hours (Table) 06/14/17 06/14/17 06/15/17 Range/Units 16:51 20:20 04:26 RBC 2.77 L (4.30-5.90) m/uL Hgb 7.9 L (13.0-17.5) gm/dL Hct 24.7 L (39.0-53.0) % Neutrophils # 8.6 H (1.3-7.7) k/uL Lymphocytes # 0.6 L (1.0-4.8) k/uL Sodium (137-145) mmol/L Potassium (3.5-5.1) mmol/L Chloride (98-107) mmol/L BUN (9-20) mg/dL Creatinine (0.66-1.25) mg/dL POC Glucose (mg/dL) 130 H 134 H (75-99) mg/dL Calcium (8.4-10.2) mg/dL Magnesium (1.6-2.3) mg/dL AST (17-59) U/L Total Protein (6.3-8.2) g/dL Albumin (3.5-5.0) g/dL 06/15/17 06/15/17 Range/Units 04:26 07:02 RBC (4.30-5.90) m/uL Hgb (13.0-17.5) gm/dL Hct (39.0-53.0) % Neutrophils # (1.3-7.7) k/uL Lymphocytes # (1.0-4.8) k/uL Sodium 128 L (137-145) mmol/L Potassium 5.7 H (3.5-5.1) mmol/L Chloride 92 L (98-107) mmol/L BUN 35 H (9-20) mg/dL Creatinine 1.30 H (0.66-1.25) mg/dL POC Glucose (mg/dL) 111 H (75-99) mg/dL Calcium 8.2 L (8.4-10.2) mg/dL Magnesium 2.6 H (1.6-2.3) mg/dL AST 74 H (17-59) U/L Total Protein 5.2 L (6.3-8.2) g/dL Albumin 3.1 L (3.5-5.0) g/dL Assessment and Plan Plan: MANDY, mild - due to combination of relative hypotension and diuresis, not related to surgery - hold off on ACEI due to rise in creatinine, could likely start in AM if Cr stable and BP stable. - Monitor renal function closely - avoid additional nephrotoxic agents Constipation - Having Bms currently - continue with bowel regiment CAD with severe mitral regurg - s/p CABG X4 with mitral valve repair and sternal reexploration - management per CT surgery Ischemic cardiomyopathy with moderate plumonary HTN, EF 25-30% with acute exacerbation - ASA, statin, BB (on hold due to bradycardia), aldactone hold off on ACEI at this time - CXR with mild congestion, recieved lasix this amX1 Acute blood loss anemia - stable - follow CBC A fib with RVR, now in junctional rhythm/bradycardia - amiodarone and BB on hold - anticoagulation once okay with CT surgery HTN, controlled - Currently on hydrazine with metoprolol D/C for bradycardia - follow BP BPH - doxazosin was stopped due need use of multiple BP medications - Continue flomax, D/C ramirez at the discretion of CT surgery. Chron's disease - continue home medication regiment DVT prophylaxis: heparin Discussed with: Patient, family
[2017-06-15] MEDS ORDERED: DEXTROSE 5% IN WATER 100 ML with AMIODARONE 150 MG IV ONE (14:34)
[2017-06-15] MEDS ORDERED: AMIODARONE 450 MG in DEXTROSE 5% IN WATER 250 ML IV SCH ×2 (14:45)
[2017-06-15 16:57] LABS: Glucose,Whole Blood 122 mg/dL (75-99)
[2017-06-15 20:57] LABS: Glucose,Whole Blood 142 mg/dL (75-99)
[2017-06-15] MEDS ORDERED: AMIODARONE 200 MG TAB PO SCH (21:00)
[2017-06-15] MEDS: SENNOSIDES-DOCUSATE SODIUM 1 EACH TAB PO SCH (22:26)
[2017-06-16] MEDS: HYDROcodone/APAP 5-325MG 1 EACH TAB PO PRN ×3 (00:43→20:25)
[2017-06-16] MEDS: HEPARIN SODIUM,PORCINE 5,000 UNIT/ML 1 ML VIAL SQ SCH ×4 (00:43→23:24)
[2017-06-16 02:05] LABS: Glucose,Whole Blood 95 mg/dL (75-99)
[2017-06-16] MEDS ORDERED: FUROSEMIDE 10 MG/ML 2 ML VIAL IV ONE ×2 (04:34→14:00)
[2017-06-16] MEDS ORDERED: DEXTROSE 5% IN WATER 100 ML with AMIODARONE 150 MG IV ONE ×2 (04:34→19:09)
[2017-06-16] MEDS: AMIODARONE 450 MG in DEXTROSE 5% IN WATER 250 ML IV SCH ×6 (05:13→20:58)
[2017-06-16 06:07] LABS: Glucose,Whole Blood 109 mg/dL (75-99)
[2017-06-16] MEDS: INSULIN ASPART 100 UNIT/ML 1 ML 10 ML VIAL SQ SCH ×4 (06:11→21:31)
[2017-06-16 06:45] LABS: HGB 8.4 gm/dL (13.0-17.5); Hypochromasia Slight; MCH 28.4 pg (25.0-35.0); MCHC 32.3 g/dL (31.0-37.0); MCV 87.9 fL (80.0-100.0); Mean Platelet Volume 7.2; Platelet Count 302 k/uL (150-450); Poikilocytosis Slight; RBC 2.95 m/uL (4.30-5.90); RDW 15.3 % (11.5-15.5)
[2017-06-16] MEDS: PANTOPRAZOLE 40 MG TABLET PO SCH (06:45)
[2017-06-16 07:03] LABS: Albumin 3.2 g/dL (3.5-5.0); Calcium 8.5 mg/dL (8.4-10.2); Magnesium 2.1 mg/dL (1.6-2.3); Phosphorus 3.2 mg/dL (2.5-4.5); Potassium 4.8 mmol/L (3.5-5.1); Total Bilirubin 1.3 mg/dL (0.2-1.3); Total Protein 5.4 g/dL (6.3-8.2)
[2017-06-16] MEDS: IPRATROPIUM-ALBUTEROL 3 ML NEB INHALATION SCH ×4 (07:40→20:58)
--- NOTE | 2017-06-16 07:51 | XR ---
EXAMINATION TYPE: XR chest 2V DATE OF EXAM: 06/16/2017 COMPARISON: Prior chest 06/15/2017 HISTORY: Status post cardiac surgery TECHNIQUE: Frontal and lateral views of the chest are obtained. FINDINGS: The heart is enlarged. There is no evident pneumothorax or pleural effusion. Interstitium is increased. Left-sided chest tube has been removed. Patient is post mitral valve replacement. Minim al patchy basilar density. There are overlying cardiac leads. IMPRESSION: No evident complication status post chest tube removal. There may be a component of pulm onary venous hypertension and interstitial edema, volume overload.
[2017-06-16] MEDS: hydrALAZINE HCL 25 MG TAB PO SCH ×3 (09:09→20:25)
[2017-06-16] MEDS: ATORVASTATIN 40 MG TAB PO SCH (09:09)
[2017-06-16] MEDS: TAMSULOSIN 0.4 MG CAP.ER.24H PO SCH (09:09)
[2017-06-16] MEDS: ASPIRIN 325 MG TAB PO SCH (09:09)
[2017-06-16] MEDS: SPIRONOLACTONE 25 MG TAB PO SCH (09:09)
--- NOTE | 2017-06-16 10:40 | P.PN ---
Subjective Progress Note Date: 06/16/17 Principal diagnosis: Acute exacerbation of systolic congestive heart failure, new onset atrial fibrillation with RVR, valvular heart disease, acute exacerbation of COPD Coronary artery disease This is a very pleasant 71-year-old gentleman who follows with Dr. Mauricio Keith as his primary care physician. He has history of Crohn's disease, nephrolithiasis status post lithotripsy him a BPH, hypertension, tinnitus. He has has a history of previous tobacco dependence and suspected COPD. 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 He had been having ongoing issues with shortness of breath, yellow productive sputum. He had been treated for bronchitis 2 with antibiotics and steroids. Never quite back to his baseline. He did have a fever of 102.4. He presented to the emergency room at [facility] with increasing shortness of breath, cough, congestion palpitations. He was found to be in atrial fibrillation with a rapid ventricular response and was subsequently transferred here to [facility] yesterday morning. His chest x-ray did reveal evidence of fluid volume overload and congestive heart failure. An echocardiogram revealed severely impaired left ventricular systolic function with ejection fraction 25-30%. There is also noted severe global hypokinesia. He has moderate to severe mitral regurgitation. Moderate to severe tricuspid regurgitation. Moderate pulmonary hypertension with an RVSP of 57.96 mmHg. ProBNP 6190. Creatinine 1.20. He has been initiated on Lasix 20 mg IV push every 12 hours. He is seen today in consultation on the selective care unit. He is currently sitting up in a chair at the bedside. He is awake and alert in no acute distress. He is breathing easier today as compared to yesterday. He is maintaining good O2 saturations in the 90s on room air. He has since converted back to normal sinus rhythm. He is afebrile. No fever chills or night sweats. No productive cough. The cultures reveal no growth to date. He has been initiated on Xarelto. He is also on bronchodilators, IV Solu-Medrol and antibiotics in the form of Augmentin. The patient is seen again today 06/03/2017 in follow-up on the selective care unit. He is currently resting comfortably in bed. He did undergo cardiac catheterization this morning. Report is pending. Further interventions are being discussed. He denies any shortness of breath currently. No chest pain or palpitations. He is currently maintaining good O2 saturations in the 90s on room air. He is hemodynamically stable. Blood and sputum cultures reveal no growth to date. White count 9.7. Hemoglobin 10.9. Creatinine 1.41. He is currently on bronchodilators, IV Solu-Medrol, Augmentin. Xarelto currently on hold. On 06/04/2017 patient seen in follow-up on selective care unit. Patient underwent cardiac catheterization on 06/03/2017 was found to have moderate disease in the distal left main and the mid RCA and moderate disease in the proximal left circumflex. In the plan is to treat him medically for his coronary artery disease. Yesterday in the afternoon patient back into atrial fibrillation with RVR, started on Cardizem drip, and currently his rate is ranging anywhere from 80-110 BPM. Patient had an episode of acute respiratory distress this morning, she was tachypneic, coughing, and was given 40 mg of IV Lasix for what appeared to be acute pulmonary edema. Chest x-ray was obtained, and showed pulmonary venous hypertension, and interstitial edema. Patient was placed on 100% nonrebreather, once releasing his FiO2 was weaned back down, and currently the patient is on 3 L per nasal cannula with O2 sat 94%. She remains on oral prednisone, Xarelto for anticoagulation. Responded well to IV diuretics. On 06/05/2088 seeing bC for a follow-up. Obviously the patient is less short of breath compared to yesterday. Note that the patient went into an acute pulmonary edema yesterday and he became acutely short of breath. He responded nicely to diuretics. He is going to have a RUT to evaluate the mitral valve regurgitation today and its severity. The patient is still in atrial fibrillation. Rate is under better control and the patient is currently off the Cardizem drip. He has having no chest pain. No nausea. No vomiting. No cough or sputum production. Cardiology is on the case and the patient is currently anticoagulated with Xarelto. He is also on metoprolol 25 mg by mouth twice a day and amiodarone 400 mg by mouth twice a day and the patient is also on a combination of Lasix and Aldactone. The patient is also completing a course of Augmentin and a prednisone burst taper regarding acute bronchitis/ COPD exacerbation. For now the plan is to proceed with cardiac evaluation with RUT. On 06/06/2017, I'm seeing this patient for a follow-up. Overall poor status is stable and the patient is less short of breath compared to yesterday. He is still being investigated regarding his valvular disease knowing that he has severe mitral regurgitation and he may be a potentially candidate for mitral valve repair. History nature fibrillation at the rate is controlled. He is on anticoagulation for now and he is on Xarelto. No chest pain. No angina. No nausea. No vomiting. No swelling in lower extremities. On and off is still coughing and he is being treated with a prednisone burst taper regarding his COPD exacerbation is also on a course of Augmentin. The patient was seen by Dr. Reinaldo Davila. He is on Lasix 40 mg IV every 12 hours. He is also on Aldactone 25 minutes by mouth daily. No other significant events over the past 24 hours. He is also on amiodarone 400 mg by mouth twice a day in addition to his beta billy 25 mg of metoprolol twice a day. On 06/07/2017, the patient is feeling much better. He is off oxygen. His emanating. A bedside spirometry was done and his FEV1 is normal to 58% of predicted consistent with COPD yet this can be and also a underestimation of the lung capacity knowing that the patient was in CHF and had lateral pleural effusions. In any rate his cardiac rhythm is back to sinus. He is having paroxysmal atrial fibrillation and this morning he was noted to be in sinus rhythm. No chest pain. No major swelling lower extremities. No altered mentation. He is completing a prednisone burst taper regarding his COPD exacerbation. I elected discussion about this case with cardiology and cardiothoracic surgery. The patient will need surgery knowing that he has severe mitral regurgitation. The images were reviewed by the surgeon. The consensus is that the patient will need an intra-aortic balloon pump placed to optimize his postoperative recovery. If surgery is being contemplated, this will be done probably on Thursday with insertion of intra-aortic balloon pump. The patient otherwise is doing well. He is on oral Lasix. Is on Zestril. Is on Lopressor. He is on a prednisone burst taper. No fever or chills. No other complaints otherwise for now. Patient was reevaluated today on 06/08/2017, patient is feeling great, asymptomatic, off the oxygen, looking forward for his planned surgery in the next 2 days. Patient apparently has severe mitral regurgitation, and he would require surgical intervention I believe it was scheduled for next one day. CBC was noted to be normal, basic metabolic profile is normal, bicarb is 36. Patient denies any cough wheezing or shortness of breath at present. The patient is seen again today 06/09/2017 in follow-up on the selective care unit. He is currently sitting up in a chair at the bedside. He is feeling quite well today. He denies any worsening shortness of breath, cough or congestion. His been maintaining good O2 saturations in the mid 90s on room air. He's been afebrile. Hemodynamically stable. No chest pain or palpitations. White count 9.4. Hemoglobin 11.9. Creatinine 0.94. Reevaluated today on 06/10/2017, patient underwent mitral valve repair, and four- vessel bypass today. Transferred back to the ICU on mechanical ventilation, and I evaluated the patient postoperatively. His ventilator settings were reviewed, patient is on tidal volume of 500, IMV rate of 12, PEEP of 8, and FiO2 of 100% at this point. ABG is pending. Chest x-ray showed mostly postoperative changes, and proper placement of endotracheal tube and chest tubes. Patient is fully sedated, and mechanically ventilated. Patient was reevaluated today on 06/11/2017, patient was still on mechanical ventilation earlier this morning, he had some weaning parameters earlier this morning that where reasonable but the patient had poor ABG on 40% FiO2. Hence we delayed the extubation until this morning. Upon my evaluation, the patient was noted to be doing well on CPAP, and I gave him a short trial of CPAP and pressure support were and the patient did extremely well with excellent tidal volumes and respiratory rate. Chest x-ray was reviewed and it showed minimal venous congestion, hence I proceeded to extubating the patient. Tolerated the extubation well, and I was still at bedside. CBC was reviewed WBC is 14.4 hemoglobin is 8.4 ABG this morning showed a pO2 of 80 pCO2 of 41 pH of 7.41. Basic metabolic profile was noted to be relatively normal. Renal functioning is normal. Meds were all reviewed. Reevaluated today on 06/12/2017, patient had episodes of shortness of breath last night, responded quite well to a dose of Lasix 40 mg IV push given 1. Today continues to have some shortness of breath, but his chest x-ray is showing improvement, his ABG is reasonable, and his O2 saturation is in the high 90s on 3 L nasal cannula. ABC was noted to be normal except for hemoglobin of 7.9. ABG this morning showed a pO2 of 76 pCO2 of 34 pH of 7.48. Renal profile is normal patient is putting out almost 100 mL of urine per hour. Chest x-ray showed minimal small pleural effusions consistent with mild congestive heart failure changes. No evidence of pneumonia. Progress note dated 06/13/2017 71-year-old male postop day #3 status post mitral valve repair and four-vessel bypass grafting. The patient seemed be doing relatively well. The patient's been weaned down to 2 L nasal cannula. Not receiving any IV fluids. The patient's chest x-ray does show evidence of mild fluid overload. The patient has a history of diffuse emphysema bilateral pleural effusions atrial fibrillation heart failure BPH Crohn's disease hypertension and kidney stones. Ejection fraction is 25-35%. Anyway, the patient seemed be doing relatively well. No major issues or complaints. One chest tube removed today. The patient denies any chest pain or chest discomfort. Minimal shortness of breath. Doing reasonably well on his incentive spirometer. Progress note dated 06/14/2017 71-year-old male postop day #4 status post mitral valve repair and four-vessel bypass grafting. The patient seemed be doing relatively well. He is just on room air. Not receiving any IV fluids. No chest pain or chest discomfort. No breathing difficulty. Not coughing or wheezing. Not producing any phlegm. Not coughing up any blood. The patient otherwise is doing reasonably well. Has a history of diffuse emphysema, bilateral pleural effusions, atrial fibrillation, heart failure, BPH, Crohn's disease, hypertension and kidney stones. His ejection fraction is only 25-30%. On 06/15/2017 patient seen in follow-up in intensive care unit. He is awake, alert, sitting up in the recliner, denies any acute distress, his incentive spirometry effort is around [id number] ML. Lung sounds are positive for coarse crackles at bilateral bases. He is on room air, his O2 sat at 98%, hemodynamically stable, his in sinus rhythm with a rate of 69 BPM. His pain is reasonably controlled, he still has the left chest tube in place with about 400 mL of serosanguineous thin output. No air leak noted. Midsternal incision is clean dry and intact, Heart Hugger is in place, epicardial wires are grounded. Patient is tolerating oral diet. Per cardiothoracic surgery patient will be transferred out of the intensive care today. On 06/16/2017 patient seen in follow-up on selective care unit. He is resting comfortably in bed, denies any acute distress. He is in good spirits. His incentive spirometry effort today is 3000 ML. he is afebrile, hemodynamically stable, he is on room air with pulse ox of 97%. His left-sided chest tube has been removed, he is epicardial wires remain in place, grounded. His midsternal incision is clean dry and intact. Patient has been ambulating, tolerating activity well. Today's chest x-ray shows a component of pulmonary venous hypertension and interstitial edema, volume overload. Cardiothoracic surgery is managing the IV diuresis. Overall patient is doing well, no acute complaints overnight. Objective - Vital Signs Vital signs: Vital Signs Temp 97.0 F L 06/16/17 08:59 Pulse 59 L 06/16/17 08:00 Resp 18 06/16/17 08:00 BP 123/62 06/16/17 08:00 Pulse Ox 97 06/16/17 08:00 Intake & Output 06/15/17 06/16/17 06/16/17 18:59 06:59 18:59 Intake Total 440 1268 118 Output Total 1960 2100 Balance -1520 -832 118 Weight 85.3 kg 87.5 kg Intake: Intake, IV Titration 100 618 Amount Dextrose 5% in Water 100 100 ml @ 618 mls/hr IV .Q10M ONE with Amiodarone 150 mg Rx#:[id number] Dextrose 5% in Water 100 618 ml @ 618 mls/hr IV .Q10M ONE with Amiodarone 150 mg Rx#:[id number] Oral 340 650 118 Output: Chest Tube Drainage 60 Chest Tube Left 60 Urine 1900 2100 Other: Voiding Method Urinal Urinal # Voids 1 3 ABP, PAP, CO, CI - Last Documented Arterial Blood Pressure 61/37 Pulmonary Artery Pressure 47/22 Cardiac Output 5.2 Cardiac Index 2.5 - Exam GENERAL EXAM: Alert, active, comfortable in no apparent distress. HEAD: Normocephalic. EYES: Normal reaction of pupils, equal size. NOSE: Clear with pink turbinates. THROAT: No erythema or exudates. NECK: No masses, no JVD. CHEST: Midsternal incision is clean dry and intact, heart hugger is in place, epicardial wires are grounded, left-sided chest tube has been removed, and serous drainage has been noted to be draining from the left and right chest tube insertion sites LUNGS: Equal air entry with coarse bibasilar crackles CVS: S1 and S2 normal regular rhythm. ABDOMEN: No hepatosplenomegaly, normal bowel sounds, no guarding or rigidity. SPINE: No scoliosis or deformity SKIN: No rashes CENTRAL NERVOUS SYSTEM: No focal deficits, tone is normal in all 4 extremities. EXTREMITIES: There is trace peripheral edema. No calf pain or tenderness noted. Antiembolism stockings are in place, SCDs present No clubbing, no cyanosis. Peripheral pulses are intact. - Labs CBC & Chem 7: 06/16/17 06:22 06/16/17 06:22 Labs: Abnormal Lab Results - Last 24 Hours (Table) 06/15/17 06/15/17 06/16/17 Range/Units 16:55 20:55 06:05 RBC (4.30-5.90) m/uL Hgb (13.0-17.5) gm/dL Hct (39.0-53.0) % Sodium (137-145) mmol/L Chloride (98-107) mmol/L BUN (9-20) mg/dL POC Glucose (mg/dL) 122 H 142 H 109 H (75-99) mg/dL Total Protein (6.3-8.2) g/dL Albumin (3.5-5.0) g/dL 06/16/17 06/16/17 Range/Units 06:22 06:22 RBC 2.95 L (4.30-5.90) m/uL Hgb 8.4 L (13.0-17.5) gm/dL Hct 26.0 L (39.0-53.0) % Sodium 130 L (137-145) mmol/L Chloride 92 L (98-107) mmol/L BUN 29 H (9-20) mg/dL POC Glucose (mg/dL) (75-99) mg/dL Total Protein 5.4 L (6.3-8.2) g/dL Albumin 3.2 L (3.5-5.0) g/dL Assessment and Plan Plan: Assessment: #1 severe multivessel coronary artery disease with severe amount mitral regurgitation, status post mitral valve repair and bypass grafting, four-vessel , postop day 6 #2 cardiomyopathy with ejection fraction of 25-30% #3 atrial fibrillation with rapid ventricular response. Currently in a normal sinus rhythm. #4 Moderate pulmonary hypertension. #5 Valvular heart disease. #6 diffuse central lobar emphysema #7. Bilateral pleural effusion #8. Systolic heart failure #9 History of previous tobacco dependence. #10 Hypertension. #11 Crohn's disease. Plan: Patient is doing well, left-sided chest tube has been removed, IV diuresis per cardiothoracic surgery, today's chest x-ray still shows a component of interstitial edema, volume overload. Clinically patient denies any worsening dyspnea, he is currently on room air, and maintaining O2 saturations above 95%. Tolerating ambulation, we'll continue to follow I performed a history & physical examination of the patient and discussed their management with my nurse practitioner, Parvin Arango. I reviewed the nurse practitioner's note and agree with the documented findings and plan of care. Lung sounds are clear. The findings and the impression was discussed with the patient. I attest to the documentation by the nurse practitioner. Time with Patient: Less than 30
--- NOTE | 2017-06-16 11:22 | P.PN ---
Subjective Progress Note Date: 06/16/17 Principal diagnosis: CAD s/p CABG Patient has been having intermittent runs of atrial fibrillation, last event was at around 4 AM last night. During that time he felt a little dizzy and short of breath, no chest pain. Objective - Vital Signs Vital signs: Vital Signs Temp 97.0 F L 06/16/17 08:59 Pulse 58 L 06/16/17 11:17 Resp 18 06/16/17 08:00 BP 123/62 06/16/17 08:00 Pulse Ox 97 06/16/17 08:00 Intake & Output 06/15/17 06/16/17 06/16/17 18:59 06:59 18:59 Intake Total 440 1268 118 Output Total 1960 2100 Balance -1520 -832 118 Weight 85.3 kg 87.5 kg Intake: Intake, IV Titration 100 618 Amount Dextrose 5% in Water 100 100 ml @ 618 mls/hr IV .Q10M ONE with Amiodarone 150 mg Rx#:[id number] Dextrose 5% in Water 100 618 ml @ 618 mls/hr IV .Q10M ONE with Amiodarone 150 mg Rx#:[id number] Oral 340 650 118 Output: Chest Tube Drainage 60 Chest Tube Left 60 Urine 1900 2100 Other: Voiding Method Urinal Urinal # Voids 1 3 ABP, PAP, CO, CI - Last Documented Arterial Blood Pressure 61/37 Pulmonary Artery Pressure 47/22 Cardiac Output 5.2 Cardiac Index 2.5 - Exam General: non toxic, no distress, appears at stated age Derm: warm, dry Head: atraumatic, normocephalic, symmetric Eyes: EOMI, no lid lag, anicteric sclera Mouth: no lip lesion, mucus membranes moist Cardiovascular: Bradycardic, S1S2 within normal limits, reg, no murmur, Lungs: Rhonchi left base , no accessory muscle use, CTs in place and mediastinal tube Abdominal: soft, nontender to palpation, no guarding, no appreciable organomegaly Ext: no gross muscle atrophy, trace edema, no contractures Neuro: CN II-XI grossly intact, no focal neuro deficits Psych: Alert, oriented, appropriate affect - Labs CBC & Chem 7: 06/16/17 06:22 06/16/17 06:22 Labs: Abnormal Lab Results - Last 24 Hours (Table) 06/15/17 06/15/17 06/16/17 Range/Units 16:55 20:55 06:05 RBC (4.30-5.90) m/uL Hgb (13.0-17.5) gm/dL Hct (39.0-53.0) % Sodium (137-145) mmol/L Chloride (98-107) mmol/L BUN (9-20) mg/dL POC Glucose (mg/dL) 122 H 142 H 109 H (75-99) mg/dL Total Protein (6.3-8.2) g/dL Albumin (3.5-5.0) g/dL 18 06/16/17 Range/Units 06:22 06:22 RBC 2.95 L (4.30-5.90) m/uL Hgb 8.4 L (13.0-17.5) gm/dL Hct 26.0 L (39.0-53.0) % Sodium 130 L (137-145) mmol/L Chloride 92 L (98-107) mmol/L BUN 29 H (9-20) mg/dL POC Glucose (mg/dL) (75-99) mg/dL Total Protein 5.4 L (6.3-8.2) g/dL Albumin 3.2 L (3.5-5.0) g/dL Assessment and Plan Plan: MANDY, mild - Resolved, due to combination of relative hypotension and diuresis, not related to surgery - hold off ACEI for now, could likely start in AM if Cr stable and BP stable. - Monitor renal function closely - avoid additional nephrotoxic agents Constipation - Having Bms currently - continue with bowel regiment CAD with severe mitral regurg - s/p CABG X4 with mitral valve repair and sternal reexploration - management per CT surgery Ischemic cardiomyopathy with moderate plumonary HTN, EF 25-30% with acute exacerbation - ASA, statin, BB (on hold due to bradycardia), aldactone hold off on ACEI at this time - CXR with mild congestion, recieved lasix this amX1 Acute blood loss anemia - stable - follow CBC A fib with RVR, now in junctional rhythm/bradycardia - amiodarone gtt restarted, BB on hold due to bradycardia - anticoagulation once okay with CT surgery HTN, controlled - Currently on hydrazine - follow BP BPH - doxazosin was stopped due need use of multiple BP medications - Continue flomax, Chron's disease - continue home medication regiment DVT prophylaxis: heparin Discussed with: Patient, family
[2017-06-16 11:26] LABS: Glucose,Whole Blood 138 mg/dL (75-99)
[2017-06-16] MEDS: MULTIVITAMINS, THERA 1 EACH TAB PO SCH (13:35)
[2017-06-16] MEDS: CYANOCOBALAMIN 500 MCG TAB PO SCH (13:35)
[2017-06-16] MEDS: CHOLECALCIFEROL 1,000 UNIT TAB PO SCH (13:35)
--- NOTE | 2017-06-16 15:07 | P.PN ---
Subjective Progress Note Date: 06/16/17 Principal diagnosis: Multivessel coronary artery disease, mitral regurgitation. Acute on chronic systolic heart failure with ejection fraction 20-25%. Cardiomyopathy. Previous medical history of Crohn's, BPH, previous tobacco dependence with current FEV1 58% of predicted. Recent tracheobronchitis. New-onset paroxysmal atrial fibrillation, treated preoperatively with amiodarone and Xarelto. POD #6 urgent coronary artery bypass grafting 4 with left internal mammary artery graft to the left anterior descending coronary artery, a reverse saphenous vein graft to the obtuse marginal, high diagonal and right coronary arteries. Mitral valve annuloplasty with a #26 physio-Ring. Modified Schuler maze procedure with complete left sided lesion set and ligation of the left atrial appendage. Endoscopic vein harvesting of his left and right greater saphenous vein. Intraoperative transesophageal echocardiogram by anesthesia. POD #6 sternal reexploration for bleeding, for postoperative hemorrhage. Acute blood loss anemia, an expected outcome of surgery. Patient is currently lying in bed with his head elevated. He is in no acute distress. He denies any complaints of shortness of breath or pain at this time. He reports that he has been having some serous drainage from his old chest tube insertion site to his left chest. He reports that he was ambulating in the hallway 2-3 times yesterday with minimal assistance. Objective - Vital Signs Vital signs: Vital Signs Temp 97.0 F L 06/16/17 08:59 Pulse 60 06/16/17 11:26 Resp 18 06/16/17 08:00 BP 123/62 06/16/17 08:00 Pulse Ox 97 06/16/17 08:00 Intake & Output 06/15/17 06/16/17 06/16/17 18:59 06:59 18:59 Intake Total 440 1268 327.423 Output Total 1960 2100 1275 Balance -1520 -832 -947.577 Weight 85.3 kg 87.5 kg 87.5 kg Intake: Intake, IV Titration 100 618 209.423 Amount Amiodarone 450 mg In 209.423 Dextrose 5% in Water 250 ml @ 1 MG/MIN 33.33 mls/ hr IV .Q7H31M [facility] Rx#: [id number] Dextrose 5% in Water 100 100 ml @ 618 mls/hr IV .Q10M ONE with Amiodarone 150 mg Rx#:[id number] Dextrose 5% in Water 100 618 ml @ 618 mls/hr IV .Q10M ONE with Amiodarone 150 mg Rx#:[id number] Oral 340 650 118 Output: Chest Tube Drainage 60 Chest Tube Left 60 Urine 1900 2100 1275 Other: Voiding Method Urinal Urinal # Voids 1 3 ABP, PAP, CO, CI - Last Documented Arterial Blood Pressure 61/37 Pulmonary Artery Pressure 47/22 Cardiac Output 5.2 Cardiac Index 2.5 - Constitutional General appearance: Present: cooperative, no acute distress, obese - Respiratory Details: Lungs sounds essentially clear to his bilateral upper lobes, diminished to his bilateral bases. Respirations are symmetrical and unlabored. Oxygen saturations are 97% on room air. He is achieving 2000 mL on her insistence incentive spirometry. Scant serous drainage from old left chest tube insertion site. - Cardiovascular Details: Regular rhythm and rate. S1 and S2 present, negative for S3, gallop or murmur. Remote telemetry showing junctional rhythm heart rate 58. Sternum is stable. Heart hugger is in place and he is demonstrating appropriate use. Atrial and ventricular epicardial pacemaker wires intact and grounded. Knee-high SANJEEV hose and sequential compression devices in place to his bilateral lower extremities. - Gastrointestinal Gastrointestinal Comment(s): Abdomen is soft, nontender and nondistended. Active bowel sounds all 4 abdominal quadrants. Tolerating oral intake. Passing flatus. - Genitourinary Genitourinary Comment(s): Adequate urine output. Voiding clear yellow urine. 800 mL output in the last 8 hours. - Integumentary Integumentary Comment(s): Skin is warm and dry. No clubbing or cyanosis present. Midline sternal incision clean dry and approximated. No redness or drainage present. Dermabond dressing clean and dry. Bilateral lower leg EVH sites clean dry and approximated. No drainage or redness present. Dermabond dressing clean and dry. - Neurologic Neurologic: Present: CNII-XII intact - Musculoskeletal Musculoskeletal: Present: gait normal, strength equal bilaterally - Psychiatric Psychiatric: Present: A&O x's 3, appropriate affect, intact judgment & insight - Allied health notes Allied health notes reviewed: nursing - Labs CBC & Chem 7: 06/16/17 06:22 06/16/17 06:22 Labs: Abnormal Lab Results - Last 24 Hours (Table) 06/15/17 06/15/17 06/16/17 Range/Units 16:55 20:55 06:05 RBC (4.30-5.90) m/uL Hgb (13.0-17.5) gm/dL Hct (39.0-53.0) % Sodium (137-145) mmol/L Chloride (98-107) mmol/L BUN (9-20) mg/dL POC Glucose (mg/dL) 122 H 142 H 109 H (75-99) mg/dL Total Protein (6.3-8.2) g/dL Albumin (3.5-5.0) g/dL 06/16/17 06/16/17 06/16/17 Range/Units 06:22 06:22 11:24 RBC 2.95 L (4.30-5.90) m/uL Hgb 8.4 L (13.0-17.5) gm/dL Hct 26.0 L (39.0-53.0) % Sodium 130 L (137-145) mmol/L Chloride 92 L (98-107) mmol/L BUN 29 H (9-20) mg/dL POC Glucose (mg/dL) 138 H (75-99) mg/dL Total Protein 5.4 L (6.3-8.2) g/dL Albumin 3.2 L (3.5-5.0) g/dL - Imaging and Cardiology Chest x-ray: report reviewed, image reviewed Assessment and Plan (1) Acute systolic heart failure Current Visit: Yes Status: Acute Code(s): I50.21 - ACUTE SYSTOLIC ( CONGESTIVE) HEART FAILURE SNOMED Code(s): 033365037 (2) CAD (coronary artery disease) Current Visit: Yes Status: Acute Code(s): I25.10 - ATHSCL HEART DISEASE OF [place] CORONARY ARTERY W/O ANG PCTRS SNOMED Code(s): 86308913 (3) COPD (chronic obstructive pulmonary disease) with emphysema Current Visit: Yes Status: Acute Code(s): J43.9 - EMPHYSEMA, UNSPECIFIED SNOMED Code(s): 77795934 (4) New onset a-fib Current Visit: Yes Status: Acute Code(s): I48.91 - UNSPECIFIED ATRIAL FIBRILLATION SNOMED Code(s): 32777288 (5) Family history of heart disease Current Visit: Yes Status: Chronic Code(s): Z82.49 - FAMILY HX OF ISCHEM HEART DIS AND OTH DIS OF THE CIRC SYS SNOMED Code(s): 488366614 (6) History of Crohn's disease Current Visit: Yes Status: Chronic Code(s): Z87.19 - PERSONAL HISTORY OF OTHER DISEASES OF THE DIGESTIVE SYSTEM SNOMED Code(s): 550293838085209 (7) Mitral regurgitation Current Visit: Yes Status: Chronic Code(s): I34.0 - NONRHEUMATIC MITRAL ( VALVE) INSUFFICIENCY SNOMED Code(s): 26360612 (8) Tracheobronchitis Current Visit: Yes Status: Chronic Code(s): J40 - BRONCHITIS, NOT SPECIFIED ACUTE OR CHRONIC SNOMED Code(s): 87217741 (9) Tobacco dependence in remission Current Visit: No Status: Resolved Code(s): F17.201 - NICOTINE DEPENDENCE, UNSPECIFIED, IN REMISSION SNOMED Code(s): 664874362 Plan: 1. Continue aspirin, statin, hydralazine, Aldactone. 2. Continue Amiodarone for atrial fibrillation prophylaxis. We will start anticoagulation once epicardial pacemaker wires have been discontinued. 3. Encourage incentive spirometry use 10 times every hour. 4. Increase activity, ambulate in hallway. PT/OT/cardiac rehab following 5. Lasix 20 mg IV 1 today at 2 PM. 6. Will monitor daily labs and x-rays. 7. GI/DVT prophylaxis. 8. Diabetic management per primary care service. 9. Keep epicardial pacemaker wires in place for now, grounded. 10. More recommendations to follow based on patient's clinical course. Discharge planning in place. Time with Patient: Greater than 30
[2017-06-16 16:29] LABS: Glucose,Whole Blood 113 mg/dL (75-99)
--- NOTE | 2017-06-16 17:11 | P.PN ---
Subjective Progress Note Date: 06/16/17 This is a pleasant 71-year-old gentleman with no prior documented history of hypertension, no diabetes, no hyperlipidemia, nonsmoker, rare EtOH, history of Crohn's disease and enlarged prostate, who states as an outpatient he 's been dealing with symptoms of shortness of breath, fever, and productive cough of yellow sputum. He has gone to see his primary care physician as an outpatient, and has been on 2 courses of antibiotics along with steroids. In spite of this patient continues to feel short of breath, continues to have a productive cough as well as fever. For this reason he presented to [facility]. White blood cell count on arrival here 4.8, hemoglobin 11.5 , platelet count 153. Sodium 136, potassium 3.7, BUN 12, creatinine 1.0, magnesium 1.5. Troponin 0.03, BNP elevated at 7250. Chest x-ray performed at [facility] did show some congestive heart failure. Patient had an EKG performed [facility] which showed atrial fibrillation with a rapid ventricular response. According to the patient, he has no prior documented history of atrial fibrillation. EKG on arrival here shows normal sinus rhythm, sinus tachycardia with PACs. Blood pressure 128/80, heart rate in the 90s, 95% on room air. Afebrile. No labs were performed here. At the time of my examination this morning, patient has a nonrebreather on, he is satting 95%. Still appears to be quite short of breath. Continues to have productive cough. 06/02/2017 Patient was diuresed through the night on IV Lasix, overall is feeling significantly better today. White blood cell count 5.7, hemoglobin 12.3, platelet count 165. Sodium 135, potassium 4.9, BUN 23, creatinine 1.2. BNP level 6190, TSH 2.5. An echocardiogram with Doppler study was performed which revealed an ejection fraction of 25-30%. Severe global hypokinesia noted. Moderate to severe MR, moderate to severe TR. The results of this were explained to the patient in detail, he was advised to undergo cardiac catheterization to rule out underlying coronary artery disease. The risks and the benefits were explained to the patient and his in detail, this will be performed tomorrow by Dr. Perry. 06/08/2017 Patient did undergo cardiac catheterization which revealed evidence of left main disease with significant mitral regurgitation on RUT. He is scheduled to undergo surgery this week. He was seen and examined this morning, breathing is stable, denies any chest discomfort. Blood pressure 110/60 with a heart rate in the 70s, 96% on room air. Hemoglobin 11.4, platelet count 244. Sodium 139, potassium 4.0, BUN 31, creatinine 0.9. 06/16/2017 Patient is seen on the telemetry unit, status post coronary bypass grafting surgery, he did have an episode of atrial fibrillation earlier, currently in normal sinus rhythm, at times junctional rhythm. He is on IV amiodarone currently hemoglobin 8.4 today, blood pressure 110/58 with a heart rate in the 50s Objective - Vital Signs Vital signs: Vital Signs Temp 97.0 F L 06/16/17 08:59 Pulse 60 06/16/17 15:39 Resp 16 06/16/17 12:00 BP 109/58 06/16/17 12:00 Pulse Ox 99 06/16/17 12:00 Intake & Output 06/15/17 06/16/17 06/16/17 18:59 06:59 18:59 Intake Total 440 1268 563.423 Output Total 1960 2100 1275 Balance -1520 -832 -711.577 Weight 85.3 kg 87.5 kg 87.5 kg Intake: Intake, IV Titration 100 618 209.423 Amount Amiodarone 450 mg In 209.423 Dextrose 5% in Water 250 ml @ 1 MG/MIN 33.33 mls/ hr IV .Q7H31M [facility] Rx#: [id number] Dextrose 5% in Water 100 100 ml @ 618 mls/hr IV .Q10M ONE with Amiodarone 150 mg Rx#:[id number] Dextrose 5% in Water 100 618 ml @ 618 mls/hr IV .Q10M ONE with Amiodarone 150 mg Rx#:[id number] Oral 340 650 354 Output: Chest Tube Drainage 60 Chest Tube Left 60 Urine 1900 2100 1275 Other: Voiding Method Urinal Urinal Urinal # Voids 1 3 ABP, PAP, CO, CI - Last Documented Arterial Blood Pressure 61/37 Pulmonary Artery Pressure 47/22 Cardiac Output 5.2 Cardiac Index 2.5 - Exam PHYSICAL EXAMINATION: HEENT: Head is atraumatic, normocephalic. Pupils equal, round. Neck is supple. There is no elevated jugular venous pressure. HEART EXAMINATION: Heart S1 and S2 systolic murmur is heard CHEST EXAMINATION: Lungs are clear with diminished air entry to bilateral bases. ABDOMEN: Soft, nontender. Bowel sounds are heard. No organomegaly noted. EXTREMITIES: 2+ peripheral pulses with no evidence of peripheral edema and no calf tenderness noted. Lateral SANJEEV hose and Venodyne's in place NEUROLOGIC patient is awake, alert and oriented -3. . - Labs CBC & Chem 7: 06/16/17 06:22 06/16/17 06:22 Labs: Abnormal Lab Results - Last 24 Hours (Table) 06/15/17 06/16/17 06/16/17 Range/Units 20:55 06:05 06:22 RBC 2.95 L (4.30-5.90) m/uL Hgb 8.4 L (13.0-17.5) gm/dL Hct 26.0 L (39.0-53.0) % Sodium (137-145) mmol/L Chloride (98-107) mmol/L BUN (9-20) mg/dL POC Glucose (mg/dL) 142 H 109 H (75-99) mg/dL Total Protein (6.3-8.2) g/dL Albumin (3.5-5.0) g/dL 06/16/17 06/16/17 06/16/17 Range/Units 06:22 11:24 16:27 RBC (4.30-5.90) m/uL Hgb (13.0-17.5) gm/dL Hct (39.0-53.0) % Sodium 130 L (137-145) mmol/L Chloride 92 L (98-107) mmol/L BUN 29 H (9-20) mg/dL POC Glucose (mg/dL) 138 H 113 H (75-99) mg/dL Total Protein 5.4 L (6.3-8.2) g/dL Albumin 3.2 L (3.5-5.0) g/dL Assessment and Plan Plan: Assessment and plan #1 status post coronary bypass grafting surgery and mitral valve repair #2 cardiomyopathy ischemic #3 paroxysmal atrial fibrillation #4 history of prior nicotine dependence Number 5 hyperlipidemia #6 hypertension Plan From cardiology's perspective, we'll continue the patient on his current medications. He has been encouraged regarding the use of his incentive spirometry, he reached 2500 today. Progressing well overall. Continue to monitor the rhythm, he is in and out of junctional rhythm at this time. Continues to have pacer wires in place DNP note has been reviewed, I agree with a documented findings and plan of care. Patient was seen and examined.
[2017-06-16] MEDS: SENNOSIDES-DOCUSATE SODIUM 1 EACH TAB PO SCH (20:19)
[2017-06-16 20:51] LABS: Glucose,Whole Blood 143 mg/dL (75-99)
[2017-06-17 01:59] LABS: Glucose,Whole Blood 101 mg/dL (75-99)
[2017-06-17] MEDS: AMIODARONE 450 MG in DEXTROSE 5% IN WATER 250 ML IV SCH ×2 (05:13)
[2017-06-17] MEDS ORDERED: AMIODARONE 450 MG in DEXTROSE 5% IN WATER 250 ML IV SCH ×2 (05:31)
[2017-06-17 05:42] LABS: Glucose,Whole Blood 102 mg/dL (75-99)
[2017-06-17] MEDS: INSULIN ASPART 100 UNIT/ML 1 ML 10 ML VIAL SQ SCH ×4 (05:45→21:54)
[2017-06-17] MEDS: PANTOPRAZOLE 40 MG TABLET PO SCH (06:31)
[2017-06-17 07:03] LABS: HCT 27.7 % (39.0-53.0); HGB 8.8 gm/dL (13.0-17.5); Hypochromasia Slight; MCHC 31.9 g/dL (31.0-37.0); Mean Platelet Volume 7.5; Platelet Count 348 k/uL (150-450); Poikilocytosis Slight; RBC 3.14 m/uL (4.30-5.90); RDW 15.1 % (11.5-15.5); WBC 10.5 k/uL (3.8-10.6)
[2017-06-17 07:28] LABS: Albumin 3.2 g/dL (3.5-5.0); Calcium 8.6 mg/dL (8.4-10.2); Potassium 4.7 mmol/L (3.5-5.1); Total Bilirubin 1.3 mg/dL (0.2-1.3); Total Protein 5.4 g/dL (6.3-8.2)
--- NOTE | 2017-06-17 08:20 | XR ---
EXAMINATION TYPE: XR chest 2V DATE OF EXAM: 06/17/2017 COMPARISON: 06/16/2017 TECHNIQUE: PA and lateral views submitted. HISTORY: Postop CABG FINDINGS: Heart is enlarged and there is subsegmental consolidation at both lung bases with tiny effusions. Hyp ertrophic change of the spine noted. Epicardial lead and postsurgical changes seen. IMPRESSION: 1. Stable bilateral lower lobe infiltrate and small effusion.
[2017-06-17] MEDS: IPRATROPIUM-ALBUTEROL 3 ML NEB INHALATION SCH ×4 (08:31→20:08)
[2017-06-17] MEDS: ATORVASTATIN 40 MG TAB PO SCH (08:39)
[2017-06-17] MEDS: SPIRONOLACTONE 25 MG TAB PO SCH (08:39)
[2017-06-17] MEDS: ASPIRIN 325 MG TAB PO SCH (08:39)
[2017-06-17] MEDS: hydrALAZINE HCL 25 MG TAB PO SCH ×3 (08:39→21:55)
[2017-06-17] MEDS: HEPARIN SODIUM,PORCINE 5,000 UNIT/ML 1 ML VIAL SQ SCH ×3 (08:39→23:25)
[2017-06-17] MEDS: TAMSULOSIN 0.4 MG CAP.ER.24H PO SCH (08:41)
[2017-06-17] MEDS ORDERED: FUROSEMIDE 10 MG/ML 4 ML VIAL IV STA (10:13)
--- NOTE | 2017-06-17 10:37 | P.PN ---
Subjective Principal diagnosis: CAD s/p CABG Patient is feeling slightly short of breath. He had few beats runs of V. tach last night. No chest pain, no palpitations or dizziness. Objective - Vital Signs Vital signs: Vital Signs Temp 96.9 F L 06/17/17 04:00 Pulse 70 06/17/17 09:23 Resp 16 06/17/17 08:32 BP 123/76 06/17/17 09:23 Pulse Ox 93 L 06/17/17 09:23 Intake & Output 06/16/17 06/17/17 06/17/17 18:59 06:59 18:59 Intake Total 840.000 200 118 Output Total 1275 1725 Balance -435.000 -1525 118 Weight 87.5 kg 83.2 kg Intake: Intake, IV Titration 250.000 Amount Amiodarone 450 mg In 250.000 Dextrose 5% in Water 250 ml @ 1 MG/MIN 33.33 mls/ hr IV .Q7H31M [facility] Rx#: [id number] Oral 590 200 118 Output: Urine 1275 1725 Other: Voiding Method Urinal Urinal Urinal # Voids 1 ABP, PAP, CO, CI - Last Documented Arterial Blood Pressure 61/37 Pulmonary Artery Pressure 47/22 Cardiac Output 5.2 Cardiac Index 2.5 - Exam General: non toxic, no distress, appears at stated age Derm: warm, dry Head: atraumatic, normocephalic, symmetric Eyes: EOMI, no lid lag, anicteric sclera Mouth: no lip lesion, mucus membranes moist Cardiovascular: Bradycardic, S1S2 within normal limits, reg, no murmur, Lungs: Bibasilar crackles in the bases, no accessory muscle use, Abdominal: soft, nontender to palpation, no guarding, no appreciable organomegaly Ext: no gross muscle atrophy, trace edema, no contractures Neuro: CN II-XI grossly intact, no focal neuro deficits Psych: Alert, oriented, appropriate affect - Labs CBC & Chem 7: 06/17/17 06:29 06/17/17 06:29 Labs: Abnormal Lab Results - Last 24 Hours (Table) 06/16/17 06/16/17 06/16/17 Range/Units 11:24 16:27 20:49 RBC (4.30-5.90) m/uL Hgb (13.0-17.5) gm/dL Hct (39.0-53.0) % Sodium (137-145) mmol/L Chloride (98-107) mmol/L Carbon Dioxide (22-30) mmol/L BUN (9-20) mg/dL POC Glucose (mg/dL) 138 H 113 H 143 H (75-99) mg/dL Total Protein (6.3-8.2) g/dL Albumin (3.5-5.0) g/dL 06/17/17 06/17/17 06/17/17 Range/Units 01:58 05:41 06:29 RBC 3.14 L (4.30-5.90) m/uL Hgb 8.8 L (13.0-17.5) gm/dL Hct 27.7 L (39.0-53.0) % Sodium (137-145) mmol/L Chloride (98-107) mmol/L Carbon Dioxide (22-30) mmol/L BUN (9-20) mg/dL POC Glucose (mg/dL) 101 H 102 H (75-99) mg/dL Total Protein (6.3-8.2) g/dL Albumin (3.5-5.0) g/dL 06/17/17 Range/Units 06:29 RBC (4.30-5.90) m/uL Hgb (13.0-17.5) gm/dL Hct (39.0-53.0) % Sodium 132 L (137-145) mmol/L Chloride 92 L (98-107) mmol/L Carbon Dioxide 31 H (22-30) mmol/L BUN 25 H (9-20) mg/dL POC Glucose (mg/dL) (75-99) mg/dL Total Protein 5.4 L (6.3-8.2) g/dL Albumin 3.2 L (3.5-5.0) g/dL Assessment and Plan Plan: CAD with severe mitral regurg s/p CABG X4 with mitral valve repair - management per CT surgery - Chest tube discontinued but patient continues to have pacemaker wires. Ischemic cardiomyopathy with moderate plumonary HTN, EF 25-30% with acute exacerbation - ASA, statin, BB (on hold due to bradycardia), aldactone hold off on ACEI at this time - CXR with mild congestion, will repeat one more dose of lasix this amX1 Acute blood loss anemia - stable - follow CBC A fib with RVR, now in junctional rhythm/bradycardia - Continue amiodarone gtt, BB on hold due to bradycardia - Discussed with Don CT surgery CLERK [employer] attending regarding possible permanent pacemaker/defibrillator placement versus only LifeVest upon discharge. - anticoagulation once okay with CT surgery HTN, controlled - Currently on hydrazine - follow BP BPH - doxazosin was stopped due need use of multiple BP medications - Continue flomax, Chron's disease - continue home medication regiment Constipation - Having Bms currently - continue with bowel regiment DVT prophylaxis: heparin Discussed with: Patient, family
--- NOTE | 2017-06-17 10:43 | P.PN ---
Subjective Progress Note Date: 06/17/17 Principal diagnosis: Status post mitral valve repair and four-vessel bypass grafting Progress note dated 06/13/2017 71-year-old male postop day #3 status post mitral valve repair and four-vessel bypass grafting. The patient seemed be doing relatively well. The patient's been weaned down to 2 L nasal cannula. Not receiving any IV fluids. The patient's chest x-ray does show evidence of mild fluid overload. The patient has a history of diffuse emphysema bilateral pleural effusions atrial fibrillation heart failure BPH Crohn's disease hypertension and kidney stones. Ejection fraction is 25-35%. Anyway, the patient seemed be doing relatively well. No major issues or complaints. One chest tube removed today. The patient denies any chest pain or chest discomfort. Minimal shortness of breath. Doing reasonably well on his incentive spirometer. Progress note dated 06/14/2017 71-year-old male postop day #4 status post mitral valve repair and four-vessel bypass grafting. The patient seemed be doing relatively well. He is just on room air. Not receiving any IV fluids. No chest pain or chest discomfort. No breathing difficulty. Not coughing or wheezing. Not producing any phlegm. Not coughing up any blood. The patient otherwise is doing reasonably well. Has a history of diffuse emphysema, bilateral pleural effusions, atrial fibrillation, heart failure, BPH, Crohn's disease, hypertension and kidney stones. His ejection fraction is only 25-30%. Progress note dated 06/17/2017 71-year-old male, postop day #7, status post mitral valve repair and four- vessel bypass grafting. The patient seemed be doing relatively well. Likely discharge soon. The patient's not any supplemental oxygen or any additional IV fluids.. Ejection fraction only 25-30%. He has a history of diffuse emphysema , bilateral pleural effusions, atrial fibrillation, heart failure, BPH, Crohn's disease, hypertension and kidney stones. The patient's chest tubes have been removed. The patient's currently on IV amiodarone. There may be a pacemaker in the patient's future. Objective - Vital Signs Vital signs: Vital Signs Temp 96.9 F L 06/17/17 04:00 Pulse 70 06/17/17 09:23 Resp 16 06/17/17 08:32 BP 123/76 06/17/17 09:23 Pulse Ox 93 L 06/17/17 09:23 Intake & Output 06/16/17 06/17/17 06/17/17 18:59 06:59 18:59 Intake Total 840.000 200 118 Output Total 1275 1725 Balance -435.000 -1525 118 Weight 87.5 kg 83.2 kg Intake: Intake, IV Titration 250.000 Amount Amiodarone 450 mg In 250.000 Dextrose 5% in Water 250 ml @ 1 MG/MIN 33.33 mls/ hr IV .Q7H31M [facility] Rx#: [id number] Oral 590 200 118 Output: Urine 1275 1725 Other: Voiding Method Urinal Urinal Urinal # Voids 1 ABP, PAP, CO, CI - Last Documented Arterial Blood Pressure 61/37 Pulmonary Artery Pressure 47/22 Cardiac Output 5.2 Cardiac Index 2.5 - Exam No acute distress, oriented 3. Not receiving any supplemental oxygen. HEENT examination is grossly unremarkable. Mucous membranes are moist. No oral lesions. Neck supple. Full range of motion. No adenopathy thyromegaly or neck vein distention. Cardiovascular examination reveals regular rhythm rate. S1-S2 normal. No S3 or S4. No discernible murmur noted. Lungs reveal mostly clear breath sounds. His breath sounds are equal bilaterally. Minimal diffuse rhonchi and a few scattered crackles are noted. Breath sounds equal bilaterally. No wheezes. Abdomen soft bowel sounds are heard. No masses or tenderness. Extremities are intact. No cyanosis clubbing or edema. Skin is without rash or lesion. Neurologic examination is brief but nonfocal. - Labs CBC & Chem 7: 06/17/17 06:29 06/17/17 06:29 Labs: Abnormal Lab Results - Last 24 Hours (Table) 06/16/17 06/16/17 06/16/17 Range/Units 11:24 16:27 20:49 RBC (4.30-5.90) m/uL Hgb (13.0-17.5) gm/dL Hct (39.0-53.0) % Sodium (137-145) mmol/L Chloride (98-107) mmol/L Carbon Dioxide (22-30) mmol/L BUN (9-20) mg/dL POC Glucose (mg/dL) 138 H 113 H 143 H (75-99) mg/dL Total Protein (6.3-8.2) g/dL Albumin (3.5-5.0) g/dL 06/17/17 06/17/17 06/17/17 Range/Units 01:58 05:41 06:29 RBC 3.14 L (4.30-5.90) m/uL Hgb 8.8 L (13.0-17.5) gm/dL Hct 27.7 L (39.0-53.0) % Sodium (137-145) mmol/L Chloride (98-107) mmol/L Carbon Dioxide (22-30) mmol/L BUN (9-20) mg/dL POC Glucose (mg/dL) 101 H 102 H (75-99) mg/dL Total Protein (6.3-8.2) g/dL Albumin (3.5-5.0) g/dL 06/17/17 Range/Units 06:29 RBC (4.30-5.90) m/uL Hgb (13.0-17.5) gm/dL Hct (39.0-53.0) % Sodium 132 L (137-145) mmol/L Chloride 92 L (98-107) mmol/L Carbon Dioxide 31 H (22-30) mmol/L BUN 25 H (9-20) mg/dL POC Glucose (mg/dL) (75-99) mg/dL Total Protein 5.4 L (6.3-8.2) g/dL Albumin 3.2 L (3.5-5.0) g/dL Assessment and Plan Assessment: Assessment Postop day #7, status post mitral valve repair and bypass grafting, four-vessel Severe multivessel coronary artery disease with severe mitral regurgitation Significant cardiomyopathy with ejection fraction of 25-30% Pulmonary hypertension Diffuse centrilobular emphysema Bilateral pleural effusion History of atrial fibrillation with RVR, currently on IV amiodarone, with some consideration to pacemaker insertion in the future Systolic heart failure BPH Crohn's disease Hypertension Kidney stones Plan: Plan dated 06/13/2017 The patient seemed be doing reasonably well. We'll continue with deep breathing coughing and clearing of secretions. We'll continue with incentive spirometry. The patient will continue on [facility] nutritional support and other therapies. The patient is not receiving any IV fluids. The patient's postop day #3. We'll continue to follow closely. Prognosis is guarded. Plan dated 06/14/2017 The patient seemed to do relatively well. Not receiving any supplemental oxygen. Doing well on his incentive spirometer. The patient is postop day #4. We'll continue to follow. Prognosis is guarded. Plan dated 06/17/2017 The patient seemed be doing relatively well. He remains on IV amiodarone. Chest tubes have been removed. The patient is not receiving any supplemental oxygen. The patient may need a pacemaker in the future. Additional recommendations and suggestions are forthcoming. Time with Patient: Less than 30
--- NOTE | 2017-06-17 10:59 | P.PN ---
Subjective Progress Note Date: 06/17/17 This is a pleasant 71-year-old gentleman with no prior documented history of hypertension, no diabetes, no hyperlipidemia, nonsmoker, rare EtOH, history of Crohn's disease and enlarged prostate, who states as an outpatient he 's been dealing with symptoms of shortness of breath, fever, and productive cough of yellow sputum. He has gone to see his primary care physician as an outpatient, and has been on 2 courses of antibiotics along with steroids. In spite of this patient continues to feel short of breath, continues to have a productive cough as well as fever. For this reason he presented to [facility]. White blood cell count on arrival here 4.8, hemoglobin 11.5 , platelet count 153. Sodium 136, potassium 3.7, BUN 12, creatinine 1.0, magnesium 1.5. Troponin 0.03, BNP elevated at 7250. Chest x-ray performed at [facility] did show some congestive heart failure. Patient had an EKG performed [facility] which showed atrial fibrillation with a rapid ventricular response. According to the patient, he has no prior documented history of atrial fibrillation. EKG on arrival here shows normal sinus rhythm, sinus tachycardia with PACs. Blood pressure 128/80, heart rate in the 90s, 95% on room air. Afebrile. No labs were performed here. At the time of my examination this morning, patient has a nonrebreather on, he is satting 95%. Still appears to be quite short of breath. Continues to have productive cough. 06/02/2017 Patient was diuresed through the night on IV Lasix, overall is feeling significantly better today. White blood cell count 5.7, hemoglobin 12.3, platelet count 165. Sodium 135, potassium 4.9, BUN 23, creatinine 1.2. BNP level 6190, TSH 2.5. An echocardiogram with Doppler study was performed which revealed an ejection fraction of 25-30%. Severe global hypokinesia noted. Moderate to severe MR, moderate to severe TR. The results of this were explained to the patient in detail, he was advised to undergo cardiac catheterization to rule out underlying coronary artery disease. The risks and the benefits were explained to the patient and his in detail, this will be performed tomorrow by Dr. Perry. 06/08/2017 Patient did undergo cardiac catheterization which revealed evidence of left main disease with significant mitral regurgitation on RUT. He is scheduled to undergo surgery this week. He was seen and examined this morning, breathing is stable, denies any chest discomfort. Blood pressure 110/60 with a heart rate in the 70s, 96% on room air. Hemoglobin 11.4, platelet count 244. Sodium 139, potassium 4.0, BUN 31, creatinine 0.9. 06/16/2017 Patient is seen on the telemetry unit, status post coronary bypass grafting surgery, he did have an episode of atrial fibrillation earlier, currently in normal sinus rhythm, at times junctional rhythm. He is on IV amiodarone currently hemoglobin 8.4 today, blood pressure 110/58 with a heart rate in the 50s. 06/17/2017 Patient seen and examined this morning, he's up ambulating in the hallway today without any difficulty. Went back into atrial fibrillation with rapid ventricular response. He is currently on IV amiodarone which we will discontinue and start the patient on amiodarone 200 mg one tablet by mouth 3 times a day today. Hemoglobin 8.8 today, sodium 132, potassium 4.7, BUN 25, creatinine 1.0. Magnesium 2.0. At pressure 122/70 with a heart rate in the 70s. Objective - Vital Signs Vital signs: Vital Signs Temp 96.9 F L 06/17/17 04:00 Pulse 70 06/17/17 09:23 Resp 16 06/17/17 08:32 BP 123/76 06/17/17 09:23 Pulse Ox 93 L 06/17/17 09:23 Intake & Output 06/16/17 06/17/17 06/17/17 18:59 06:59 18:59 Intake Total 840.000 200 118 Output Total 1275 1725 Balance -435.000 -1525 118 Weight 87.5 kg 83.2 kg Intake: Intake, IV Titration 250.000 Amount Amiodarone 450 mg In 250.000 Dextrose 5% in Water 250 ml @ 1 MG/MIN 33.33 mls/ hr IV .Q7H31M [facility] Rx#: [id number] Oral 590 200 118 Output: Urine 1275 1725 Other: Voiding Method Urinal Urinal Urinal # Voids 1 ABP, PAP, CO, CI - Last Documented Arterial Blood Pressure 61/37 Pulmonary Artery Pressure 47/22 Cardiac Output 5.2 Cardiac Index 2.5 - Exam PHYSICAL EXAMINATION: HEENT: Head is atraumatic, normocephalic. Pupils equal, round. Neck is supple. There is no elevated jugular venous pressure. HEART EXAMINATION: Heart S1 and S2 irregular irregular systolic murmur is heard CHEST EXAMINATION: Lungs are clear with diminished air entry to bilateral bases. ABDOMEN: Soft, nontender. Bowel sounds are heard. No organomegaly noted. EXTREMITIES: 2+ peripheral pulses with no evidence of peripheral edema and no calf tenderness noted. Lateral SANJEEV hose and Venodyne's in place NEUROLOGIC patient is awake, alert and oriented -3. . - Labs CBC & Chem 7: 06/17/17 06:29 06/17/17 06:29 Labs: Abnormal Lab Results - Last 24 Hours (Table) 06/16/17 06/16/17 06/16/17 Range/Units 11:24 16:27 20:49 RBC (4.30-5.90) m/uL Hgb (13.0-17.5) gm/dL Hct (39.0-53.0) % Sodium (137-145) mmol/L Chloride (98-107) mmol/L Carbon Dioxide (22-30) mmol/L BUN (9-20) mg/dL POC Glucose (mg/dL) 138 H 113 H 143 H (75-99) mg/dL Total Protein (6.3-8.2) g/dL Albumin (3.5-5.0) g/dL 06/17/17 06/17/17 06/17/17 Range/Units 01:58 05:41 06:29 RBC 3.14 L (4.30-5.90) m/uL Hgb 8.8 L (13.0-17.5) gm/dL Hct 27.7 L (39.0-53.0) % Sodium (137-145) mmol/L Chloride (98-107) mmol/L Carbon Dioxide (22-30) mmol/L BUN (9-20) mg/dL POC Glucose (mg/dL) 101 H 102 H (75-99) mg/dL Total Protein (6.3-8.2) g/dL Albumin (3.5-5.0) g/dL 06/17/17 Range/Units 06:29 RBC (4.30-5.90) m/uL Hgb (13.0-17.5) gm/dL Hct (39.0-53.0) % Sodium 132 L (137-145) mmol/L Chloride 92 L (98-107) mmol/L Carbon Dioxide 31 H (22-30) mmol/L BUN 25 H (9-20) mg/dL POC Glucose (mg/dL) (75-99) mg/dL Total Protein 5.4 L (6.3-8.2) g/dL Albumin 3.2 L (3.5-5.0) g/dL Assessment and Plan Plan: Assessment and plan #1 status post coronary bypass grafting surgery and mitral valve repair #2 cardiomyopathy ischemic #3 paroxysmal atrial fibrillation #4 history of prior nicotine dependence #5 hyperlipidemia #6 hypertension Plan From cardiology's perspective, we will discontinue the IV amiodarone and start the patient on amiodarone 200 mg one tablet by mouth 3 times a day, reinitiate beta billy. Reinitiate anticoagulation once pacer wires are DC'd. DNP note has been reviewed, I agree with a documented findings and plan of care. Patient was seen and examined.
[2017-06-17 11:00] VITALS: BMI 26.3
--- NOTE | 2017-06-17 11:45 | P.PN ---
Subjective Progress Note Date: 06/17/17 Principal diagnosis: Multivessel coronary artery disease, mitral regurgitation. Acute on chronic systolic heart failure with ejection fraction 20-25%. Cardiomyopathy. Previous medical history of Crohn's, BPH, previous tobacco dependence with current FEV1 58% of predicted. Recent tracheobronchitis. New-onset paroxysmal atrial fibrillation, treated preoperatively with amiodarone and Xarelto. POD #7 urgent coronary artery bypass grafting 4 with left internal mammary artery graft to the left anterior descending coronary artery, a reverse saphenous vein graft to the obtuse marginal, high diagonal and right coronary arteries. Mitral valve annuloplasty with a #26 physio-Ring. Modified Schuler maze procedure with complete left sided lesion set and ligation of the left atrial appendage. Endoscopic vein harvesting of his left and right greater saphenous vein. Intraoperative transesophageal echocardiogram by anesthesia. POD #7 sternal reexploration for bleeding, for postoperative hemorrhage. Acute blood loss anemia, an expected outcome of surgery. Patient is currently sitting up to the bedside edge. He is in no acute distress. He denies any complaints of pain or shortness of breath at this time. He reports that he has been having some serous drainage from his previous left chest tube insertion site. His been ambulating in the hallway without difficulty. The patient went into atrial fibrillation with rapid ventricular response early this morning and is continued on amiodarone drip at this time. Objective - Vital Signs Vital signs: Vital Signs Temp 96.9 F L 06/17/17 04:00 Pulse 70 06/17/17 09:23 Resp 16 06/17/17 08:32 BP 123/76 06/17/17 09:23 Pulse Ox 93 L 06/17/17 09:23 Intake & Output 06/16/17 06/17/17 06/17/17 18:59 06:59 18:59 Intake Total 840.000 200 118 Output Total 1275 1725 Balance -435.000 -1525 118 Weight 87.5 kg 83.2 kg 83.2 kg Intake: Intake, IV Titration 250.000 Amount Amiodarone 450 mg In 250.000 Dextrose 5% in Water 250 ml @ 1 MG/MIN 33.33 mls/ hr IV .Q7H31M [facility] Rx#: [id number] Oral 590 200 118 Output: Urine 1275 1725 Other: Voiding Method Urinal Urinal Urinal # Voids 1 ABP, PAP, CO, CI - Last Documented Arterial Blood Pressure 61/37 Pulmonary Artery Pressure 47/22 Cardiac Output 5.2 Cardiac Index 2.5 - Constitutional General appearance: Present: cooperative, no acute distress, obese - Respiratory Details: Lungs sounds essentially clear to his bilateral upper lobes, few scattered crackles to his bilateral bases. Respirations are symmetrical and unlabored. Oxygen saturations are 98% on room air. He is achieving 2250 mL on his incentive spirometry. Scant serous drainage from old left chest tube insertion site. - Cardiovascular Details: Irregular rhythm and tachycardic rate. S1 and S2 present, negative for S3, gallop or murmur. Remote telemetry showing atrial fibrillation with RVR heart rate 120s. Sternum is stable. Heart hugger is in place and he is demonstrating appropriate use. Atrial and ventricular epicardial pacemaker wires intact and grounded. Knee-high SANJEEV hose and sequential compression devices in place to his bilateral lower extremities. +1 edema to his bilateral lower extremities. - Gastrointestinal Gastrointestinal Comment(s): Abdomen is soft, nontender and nondistended. Active bowel sounds all 4 abdominal quadrants. Tolerating oral intake. Bowel movement yesterday 2017. - Genitourinary Genitourinary Comment(s): Voiding clear yellow urine. 1050 mL output in the last 8 hours. - Integumentary Integumentary Comment(s): Skin is warm and dry. No clubbing or cyanosis present. Midline sternal incision clean and dry and approximated. No redness or drainage present. Dermabond dressing clean and dry. Bilateral lower leg EVH sites clean dry and approximated. No drainage or redness present. Dermabond dressings clean and dry. Scant serous drainage from his previous less chest tube insertion site. No redness present. - Neurologic Neurologic: Present: CNII-XII intact - Musculoskeletal Musculoskeletal: Present: gait normal, strength equal bilaterally - Psychiatric Psychiatric: Present: A&O x's 3, appropriate affect, intact judgment & insight - Allied health notes Allied health notes reviewed: nursing - Labs CBC & Chem 7: 06/17/17 06:29 06/17/17 06:29 Labs: Abnormal Lab Results - Last 24 Hours (Table) 06/16/17 06/16/17 06/17/17 Range/Units 16:27 20:49 01:58 RBC (4.30-5.90) m/uL Hgb (13.0-17.5) gm/dL Hct (39.0-53.0) % Sodium (137-145) mmol/L Chloride (98-107) mmol/L Carbon Dioxide (22-30) mmol/L BUN (9-20) mg/dL POC Glucose (mg/dL) 113 H 143 H 101 H (75-99) mg/dL Total Protein (6.3-8.2) g/dL Albumin (3.5-5.0) g/dL 06/17/17 06/17/17 06/17/17 Range/Units 05:41 06:29 06:29 RBC 3.14 L (4.30-5.90) m/uL Hgb 8.8 L (13.0-17.5) gm/dL Hct 27.7 L (39.0-53.0) % Sodium 132 L (137-145) mmol/L Chloride 92 L (98-107) mmol/L Carbon Dioxide 31 H (22-30) mmol/L BUN 25 H (9-20) mg/dL POC Glucose (mg/dL) 102 H (75-99) mg/dL Total Protein 5.4 L (6.3-8.2) g/dL Albumin 3.2 L (3.5-5.0) g/dL - Imaging and Cardiology Chest x-ray: report reviewed, image reviewed Assessment and Plan (1) Acute systolic heart failure Current Visit: Yes Status: Acute Code(s): I50.21 - ACUTE SYSTOLIC ( CONGESTIVE) HEART FAILURE SNOMED Code(s): 969422341 (2) CAD (coronary artery disease) Current Visit: Yes Status: Acute Code(s): I25.10 - ATHSCL HEART DISEASE OF [place] CORONARY ARTERY W/O ANG PCTRS SNOMED Code(s): 32622283 (3) COPD (chronic obstructive pulmonary disease) with emphysema Current Visit: Yes Status: Acute Code(s): J43.9 - EMPHYSEMA, UNSPECIFIED SNOMED Code(s): 08637328 (4) New onset a-fib Current Visit: Yes Status: Acute Code(s): I48.91 - UNSPECIFIED ATRIAL FIBRILLATION SNOMED Code(s): 83580717 (5) Family history of heart disease Current Visit: Yes Status: Chronic Code(s): Z82.49 - FAMILY HX OF ISCHEM HEART DIS AND OTH DIS OF THE CIRC SYS SNOMED Code(s): 502044993 (6) History of Crohn's disease Current Visit: Yes Status: Chronic Code(s): Z87.19 - PERSONAL HISTORY OF OTHER DISEASES OF THE DIGESTIVE SYSTEM SNOMED Code(s): 519465185660011 (7) Mitral regurgitation Current Visit: Yes Status: Chronic Code(s): I34.0 - NONRHEUMATIC MITRAL ( VALVE) INSUFFICIENCY SNOMED Code(s): 29665193 (8) Tracheobronchitis Current Visit: Yes Status: Chronic Code(s): J40 - BRONCHITIS, NOT SPECIFIED ACUTE OR CHRONIC SNOMED Code(s): 11110667 (9) Tobacco dependence in remission Current Visit: No Status: Resolved Code(s): F17.201 - NICOTINE DEPENDENCE, UNSPECIFIED, IN REMISSION SNOMED Code(s): 088812993 Plan: 1. Continue aspirin, statin, hydralazine, Aldactone. 2. We will discontinue IV amiodarone, start amiodarone 200 mg by mouth 3 times a day fibrillation prophylaxis per cardiology recommendation. 3. Encourage incentive spirometry use 10 times every hour. 4. Increase activity, ambulate in hallway. PT/OT/cardiac rehab following 5. Lasix 40 mg IV 1 today. 6. Will monitor daily labs and x-rays. 7. GI/DVT prophylaxis. 8. Diabetic management per primary care service. 9. Keep epicardial pacemaker wires in place for now, grounded. 10. We will start anticoagulation once epicardial pacemaker wires have been discontinued. 11. Start metoprolol tartrate 25 mg by mouth twice a day per cardiology recommendations 12. More recommendations to follow based on patient's clinical course. Discharge planning in place. Time with Patient: Greater than 30
[2017-06-17] MEDS: METOPROLOL TARTRATE 25 MG TAB PO SCH ×2 (12:02→21:55)
[2017-06-17] MEDS: AMIODARONE 200 MG TAB PO SCH ×3 (12:03→21:55)
[2017-06-17] MEDS: CYANOCOBALAMIN 500 MCG TAB PO SCH (12:03)
[2017-06-17] MEDS: MULTIVITAMINS, THERA 1 EACH TAB PO SCH (12:03)
[2017-06-17] MEDS: CHOLECALCIFEROL 1,000 UNIT TAB PO SCH (12:03)
[2017-06-17 12:14] LABS: Glucose,Whole Blood 105 mg/dL (75-99)
[2017-06-17 17:18] LABS: Glucose,Whole Blood 154 mg/dL (75-99)
[2017-06-17 20:48] LABS: Glucose,Whole Blood 150 mg/dL (75-99)
[2017-06-17] MEDS: SENNOSIDES-DOCUSATE SODIUM 1 EACH TAB PO SCH (21:55)
[2017-06-18 05:56] LABS: Glucose,Whole Blood 102 mg/dL (75-99)
[2017-06-18] MEDS: PANTOPRAZOLE 40 MG TABLET PO SCH (06:27)
[2017-06-18] MEDS: INSULIN ASPART 100 UNIT/ML 1 ML 10 ML VIAL SQ SCH ×3 (06:28→17:11)
[2017-06-18] MEDS: IPRATROPIUM-ALBUTEROL 3 ML NEB INHALATION SCH ×2 (08:28→11:27)
[2017-06-18] MEDS: HEPARIN SODIUM,PORCINE 5,000 UNIT/ML 1 ML VIAL SQ SCH (08:41)
[2017-06-18] MEDS: TAMSULOSIN 0.4 MG CAP.ER.24H PO SCH (08:41)
[2017-06-18] MEDS: ASPIRIN 325 MG TAB PO SCH (08:41)
[2017-06-18] MEDS: AMIODARONE 200 MG TAB PO SCH ×2 (08:41→16:15)
[2017-06-18] MEDS: METOPROLOL TARTRATE 25 MG TAB PO SCH (08:42)
[2017-06-18] MEDS: SPIRONOLACTONE 25 MG TAB PO SCH (08:42)
[2017-06-18] MEDS: ATORVASTATIN 40 MG TAB PO SCH (08:42)
[2017-06-18] MEDS: hydrALAZINE HCL 25 MG TAB PO SCH ×2 (08:42→16:16)
[2017-06-18] MEDS: CYANOCOBALAMIN 500 MCG TAB PO SCH (08:43)
[2017-06-18] MEDS: CHOLECALCIFEROL 1,000 UNIT TAB PO SCH (08:43)
[2017-06-18] MEDS: HYDROcodone/APAP 5-325MG 1 EACH TAB PO PRN ×2 (08:44→16:13)
[2017-06-18] MEDS: MULTIVITAMINS, THERA 1 EACH TAB PO SCH (08:44)
[2017-06-18 09:03] LABS: Basophils % (A) 0 %; Eosinophils % (A) 0 %; HCT 28.3 % (39.0-53.0); HGB 9.1 gm/dL (13.0-17.5); Hypochromasia Slight; Lymphocytes # (A) 0.5 k/uL (1.0-4.8); Lymphocytes % (A) 5 %; MCH 28.2 pg (25.0-35.0); MCHC 32.3 g/dL (31.0-37.0); MCV 87.4 fL (80.0-100.0); Mean Platelet Volume 6.8; Monocytes # (A) 0.4 k/uL (0-1.0); Monocytes % (A) 5 %; Neutrophils # (A) 8.5 k/uL (1.3-7.7); Neutrophils % (A) 89 %; Platelet Count 415 k/uL (150-450); Poikilocytosis Slight; RBC 3.24 m/uL (4.30-5.90); RDW 14.8 % (11.5-15.5); WBC 9.6 k/uL (3.8-10.6)
[2017-06-18 09:16] LABS: Albumin 3.5 g/dL (3.5-5.0); Calcium 8.7 mg/dL (8.4-10.2); Magnesium 1.9 mg/dL (1.6-2.3); Total Bilirubin 1.3 mg/dL (0.2-1.3); Total Protein 5.9 g/dL (6.3-8.2)
[2017-06-18 09:21] LABS: Potassium 4.6 mmol/L (3.5-5.1)
--- NOTE | 2017-06-18 11:21 | P.PN ---
Subjective Progress Note Date: 06/18/17 Principal diagnosis: Acute exacerbation of systolic congestive heart failure, new onset atrial fibrillation with RVR, valvular heart disease, acute exacerbation of COPD Coronary artery disease This is a very pleasant 71-year-old gentleman who follows with Dr. Mauricio Keith as his primary care physician. He has history of Crohn's disease, nephrolithiasis status post lithotripsy him a BPH, hypertension, tinnitus. He has has a history of previous tobacco dependence and suspected COPD. He has not been seen by a filter worker in the past. He had been having ongoing issues with shortness of breath, yellow productive sputum. He had been treated for bronchitis 2 with antibiotics and steroids. Never quite back to his baseline. He did have a fever of 102.4. He presented to the emergency room at [facility] with increasing shortness of breath, cough, congestion palpitations. He was found to be in atrial fibrillation with a rapid ventricular response and was subsequently transferred here to [facility] yesterday morning. His chest x-ray did reveal evidence of fluid volume overload and congestive heart failure. An echocardiogram revealed severely impaired left ventricular systolic function with ejection fraction 25-30%. There is also noted severe global hypokinesia. He has moderate to severe mitral regurgitation. Moderate to severe tricuspid regurgitation. Moderate pulmonary hypertension with an RVSP of 57.96 mmHg. ProBNP 6190. Creatinine 1.20. He has been initiated on Lasix 20 mg IV push every 12 hours. He is seen today in consultation on the selective care unit. He is currently sitting up in a chair at the bedside. He is awake and alert in no acute distress. He is breathing easier today as compared to yesterday. He is maintaining good O2 saturations in the 90s on room air. He has since converted back to normal sinus rhythm. He is afebrile. No fever chills or night sweats. No productive cough. The cultures reveal no growth to date. He has been initiated on Xarelto. He is also on bronchodilators, IV Solu-Medrol and antibiotics in the form of Augmentin. The patient is seen again today 06/03/2017 in follow-up on the selective care unit. He is currently resting comfortably in bed. He did undergo cardiac catheterization this morning. Report is pending. Further interventions are being discussed. He denies any shortness of breath currently. No chest pain or palpitations. He is currently maintaining good O2 saturations in the 90s on room air. He is hemodynamically stable. Blood and sputum cultures reveal no growth to date. White count 9.7. Hemoglobin 10.9. Creatinine 1.41. He is currently on bronchodilators, IV Solu-Medrol, Augmentin. Xarelto currently on hold. On 06/04/2017 patient seen in follow-up on selective care unit. Patient underwent cardiac catheterization on 06/03/2017 was found to have moderate disease in the distal left main and the mid RCA and moderate disease in the proximal left circumflex. In the plan is to treat him medically for his coronary artery disease. Yesterday in the afternoon patient back into atrial fibrillation with RVR, started on Cardizem drip, and currently his rate is ranging anywhere from 80-110 BPM. Patient had an episode of acute respiratory distress this morning, she was tachypneic, coughing, and was given 40 mg of IV Lasix for what appeared to be acute pulmonary edema. Chest x-ray was obtained, and showed pulmonary venous hypertension, and interstitial edema. Patient was placed on 100% nonrebreather, once releasing his FiO2 was weaned back down, and currently the patient is on 3 L per nasal cannula with O2 sat 94%. She remains on oral prednisone, Xarelto for anticoagulation. Responded well to IV diuretics. On 06/05/2088 seeing Cb for a follow-up. Obviously the patient is less short of breath compared to yesterday. Note that the patient went into an acute pulmonary edema yesterday and he became acutely short of breath. He responded nicely to diuretics. He is going to have a RUT to evaluate the mitral valve regurgitation today and its severity. The patient is still in atrial fibrillation. Rate is under better control and the patient is currently off the Cardizem drip. He has having no chest pain. No nausea. No vomiting. No cough or sputum production. Cardiology is on the case and the patient is currently anticoagulated with Xarelto. He is also on metoprolol 25 mg by mouth twice a day and amiodarone 400 mg by mouth twice a day and the patient is also on a combination of Lasix and Aldactone. The patient is also completing a course of Augmentin and a prednisone burst taper regarding acute bronchitis/ COPD exacerbation. For now the plan is to proceed with cardiac evaluation with RUT. On 06/06/2017, I'm seeing this patient for a follow-up. Overall poor status is stable and the patient is less short of breath compared to yesterday. He is still being investigated regarding his valvular disease knowing that he has severe mitral regurgitation and he may be a potentially candidate for mitral valve repair. History nature fibrillation at the rate is controlled. He is on anticoagulation for now and he is on Xarelto. No chest pain. No angina. No nausea. No vomiting. No swelling in lower extremities. On and off is still coughing and he is being treated with a prednisone burst taper regarding his COPD exacerbation is also on a course of Augmentin. The patient was seen by Dr. Reinaldo Davila. He is on Lasix 40 mg IV every 12 hours. He is also on Aldactone 25 minutes by mouth daily. No other significant events over the past 24 hours. He is also on amiodarone 400 mg by mouth twice a day in addition to his beta billy 25 mg of metoprolol twice a day. On 06/07/2017, the patient is feeling much better. He is off oxygen. His emanating. A bedside spirometry was done and his FEV1 is normal to 58% of predicted consistent with COPD yet this can be and also a underestimation of the lung capacity knowing that the patient was in CHF and had lateral pleural effusions. In any rate his cardiac rhythm is back to sinus. He is having paroxysmal atrial fibrillation and this morning he was noted to be in sinus rhythm. No chest pain. No major swelling lower extremities. No altered mentation. He is completing a prednisone burst taper regarding his COPD exacerbation. I elected discussion about this case with cardiology and cardiothoracic surgery. The patient will need surgery knowing that he has severe mitral regurgitation. The images were reviewed by the surgeon. The consensus is that the patient will need an intra-aortic balloon pump placed to optimize his postoperative recovery. If surgery is being contemplated, this will be done probably on Thursday with insertion of intra-aortic balloon pump. The patient otherwise is doing well. He is on oral Lasix. Is on Zestril. Is on Lopressor. He is on a prednisone burst taper. No fever or chills. No other complaints otherwise for now. Patient was reevaluated today on 06/08/2017, patient is feeling great, asymptomatic, off the oxygen, looking forward for his planned surgery in the next 2 days. Patient apparently has severe mitral regurgitation, and he would require surgical intervention I believe it was scheduled for next one day. CBC was noted to be normal, basic metabolic profile is normal, bicarb is 36. Patient denies any cough wheezing or shortness of breath at present. The patient is seen again today 06/09/2017 in follow-up on the selective care unit. He is currently sitting up in a chair at the bedside. He is feeling quite well today. He denies any worsening shortness of breath, cough or congestion. His been maintaining good O2 saturations in the mid 90s on room air. He's been afebrile. Hemodynamically stable. No chest pain or palpitations. White count 9.4. Hemoglobin 11.9. Creatinine 0.94. Reevaluated today on 06/10/2017, patient underwent mitral valve repair, and four- vessel bypass today. Transferred back to the ICU on mechanical ventilation, and I evaluated the patient postoperatively. His ventilator settings were reviewed, patient is on tidal volume of 500, IMV rate of 12, PEEP of 8, and FiO2 of 100% at this point. ABG is pending. Chest x-ray showed mostly postoperative changes, and proper placement of endotracheal tube and chest tubes. Patient is fully sedated, and mechanically ventilated. Patient was reevaluated today on 06/11/2017, patient was still on mechanical ventilation earlier this morning, he had some weaning parameters earlier this morning that where reasonable but the patient had poor ABG on 40% FiO2. Hence we delayed the extubation until this morning. Upon my evaluation, the patient was noted to be doing well on CPAP, and I gave him a short trial of CPAP and pressure support were and the patient did extremely well with excellent tidal volumes and respiratory rate. Chest x-ray was reviewed and it showed minimal venous congestion, hence I proceeded to extubating the patient. Tolerated the extubation well, and I was still at bedside. CBC was reviewed WBC is 14.4 hemoglobin is 8.4 ABG this morning showed a pO2 of 80 pCO2 of 41 pH of 7.41. Basic metabolic profile was noted to be relatively normal. Renal functioning is normal. Meds were all reviewed. Reevaluated today on 06/12/2017, patient had episodes of shortness of breath last night, responded quite well to a dose of Lasix 40 mg IV push given 1. Today continues to have some shortness of breath, but his chest x-ray is showing improvement, his ABG is reasonable, and his O2 saturation is in the high 90s on 3 L nasal cannula. ABC was noted to be normal except for hemoglobin of 7.9. ABG this morning showed a pO2 of 76 pCO2 of 34 pH of 7.48. Renal profile is normal patient is putting out almost 100 mL of urine per hour. Chest x-ray showed minimal small pleural effusions consistent with mild congestive heart failure changes. No evidence of pneumonia. Progress note dated 06/13/2017 71-year-old male postop day #3 status post mitral valve repair and four-vessel bypass grafting. The patient seemed be doing relatively well. The patient's been weaned down to 2 L nasal cannula. Not receiving any IV fluids. The patient's chest x-ray does show evidence of mild fluid overload. The patient has a history of diffuse emphysema bilateral pleural effusions atrial fibrillation heart failure BPH Crohn's disease hypertension and kidney stones. Ejection fraction is 25-35%. Anyway, the patient seemed be doing relatively well. No major issues or complaints. One chest tube removed today. The patient denies any chest pain or chest discomfort. Minimal shortness of breath. Doing reasonably well on his incentive spirometer. Progress note dated 06/14/2017 71-year-old male postop day #4 status post mitral valve repair and four-vessel bypass grafting. The patient seemed be doing relatively well. He is just on room air. Not receiving any IV fluids. No chest pain or chest discomfort. No breathing difficulty. Not coughing or wheezing. Not producing any phlegm. Not coughing up any blood. The patient otherwise is doing reasonably well. Has a history of diffuse emphysema, bilateral pleural effusions, atrial fibrillation, heart failure, BPH, Crohn's disease, hypertension and kidney stones. His ejection fraction is only 25-30%. On 06/15/2017 patient seen in follow-up in intensive care unit. He is awake, alert, sitting up in the recliner, denies any acute distress, his incentive spirometry effort is around [id number] ML. Lung sounds are positive for coarse crackles at bilateral bases. He is on room air, his O2 sat at 98%, hemodynamically stable, his in sinus rhythm with a rate of 69 BPM. His pain is reasonably controlled, he still has the left chest tube in place with about 400 mL of serosanguineous thin output. No air leak noted. Midsternal incision is clean dry and intact, Heart Hugger is in place, epicardial wires are grounded. Patient is tolerating oral diet. Per cardiothoracic surgery patient will be transferred out of the intensive care today. On 06/16/2017 patient seen in follow-up on selective care unit. He is resting comfortably in bed, denies any acute distress. He is in good spirits. His incentive spirometry effort today is 3000 ML. he is afebrile, hemodynamically stable, he is on room air with pulse ox of 97%. His left-sided chest tube has been removed, he is epicardial wires remain in place, grounded. His midsternal incision is clean dry and intact. Patient has been ambulating, tolerating activity well. Today's chest x-ray shows a component of pulmonary venous hypertension and interstitial edema, volume overload. Cardiothoracic surgery is managing the IV diuresis. Overall patient is doing well, no acute complaints overnight. Progress note dated 06/17/2017 71-year-old male, postop day #7, status post mitral valve repair and four- vessel bypass grafting. The patient seemed be doing relatively well. Likely discharge soon. The patient's not any supplemental oxygen or any additional IV fluids.. Ejection fraction only 25-30%. He has a history of diffuse emphysema , bilateral pleural effusions, atrial fibrillation, heart failure, BPH, Crohn's disease, hypertension and kidney stones. The patient's chest tubes have been removed. The patient's currently on IV amiodarone. There may be a pacemaker in the patient's future. On 06/18/2017 patient seen in follow-up on selective care unit. This is postop day 8, status post mitral valve repair and four-vessel bypass grafting. Patient continues to improve, denies any worsening dyspnea. Chest tubes have been discontinued day before yesterday. Patient is compliant with ambulation and incentive spirometry use. He is on room air, with O2 sat 96%. Afebrile, he remains in sinus rhythm, afebrile. He remains on oral amiodarone 200 mg 3 times a day, he did receive IV diuretics per cardiothoracic surgery. Lung sounds are positive for a few scattered rhonchi at the bases, has 1+ pitting edema in bilateral lower extremities. He is in -1562 mL fluid balance last 24 hours. Patient is doing well, anticipated to be discharged home today Objective - Vital Signs Vital signs: Vital Signs Temp 98.1 F 06/18/17 08:00 Pulse 64 06/18/17 08:00 Resp 20 06/18/17 08:00 BP 105/64 06/18/17 08:00 Pulse Ox 96 06/18/17 08:00 Intake & Output 06/17/17 06/18/17 06/18/17 18:59 06:59 18:59 Intake Total 478 360 260 Output Total 1400 1000 850 Balance -922 -640 -590 Weight 83.2 kg 82.6 kg Intake: Oral 478 360 260 Output: Urine 1400 1000 850 Other: Voiding Method Urinal Toilet Toilet Urinal Urinal # Voids 3 # Bowel Movements 1 ABP, PAP, CO, CI - Last Documented Arterial Blood Pressure 61/37 Pulmonary Artery Pressure 47/22 Cardiac Output 5.2 Cardiac Index 2.5 - Exam GENERAL EXAM: Alert, active, comfortable in no apparent distress. HEAD: Normocephalic. EYES: Normal reaction of pupils, equal size. NOSE: Clear with pink turbinates. THROAT: No erythema or exudates. NECK: No masses, no JVD. CHEST: Midsternal incision is clean dry and intact, heart hugger is in place, epicardial wires are grounded, left-sided chest tube has been removed, and serous drainage has been noted to be draining from the left and right chest tube insertion sites LUNGS: Equal air entry with a few bibasilar rhonchi CVS: S1 and S2 normal regular rhythm. ABDOMEN: No hepatosplenomegaly, normal bowel sounds, no guarding or rigidity. SPINE: No scoliosis or deformity SKIN: No rashes CENTRAL NERVOUS SYSTEM: No focal deficits, tone is normal in all 4 extremities. EXTREMITIES: There is 1+ peripheral edema. No calf pain or tenderness noted. Antiembolism stockings are in place, SCDs present No clubbing, no cyanosis. Peripheral pulses are intact. - Labs CBC & Chem 7: 06/18/17 08:31 06/18/17 08:31 Labs: Abnormal Lab Results - Last 24 Hours (Table) 06/17/17 06/17/17 06/17/17 Range/Units 11:49 16:38 20:45 RBC (4.30-5.90) m/uL Hgb (13.0-17.5) gm/dL Hct (39.0-53.0) % Neutrophils # (1.3-7.7) k/uL Lymphocytes # (1.0-4.8) k/uL Sodium (137-145) mmol/L Chloride (98-107) mmol/L Carbon Dioxide (22-30) mmol/L BUN (9-20) mg/dL Glucose (74-99) mg/dL POC Glucose (mg/dL) 105 H 154 H 150 H (75-99) mg/dL Total Protein (6.3-8.2) g/dL 06/18/17 06/18/17 06/18/17 Range/Units 05:55 08:31 08:31 RBC 3.24 L (4.30-5.90) m/uL Hgb 9.1 L (13.0-17.5) gm/dL Hct 28.3 L (39.0-53.0) % Neutrophils # 8.5 H (1.3-7.7) k/uL Lymphocytes # 0.5 L (1.0-4.8) k/uL Sodium 131 L (137-145) mmol/L Chloride 90 L (98-107) mmol/L Carbon Dioxide 31 H (22-30) mmol/L BUN 27 H (9-20) mg/dL Glucose 104 H (74-99) mg/dL POC Glucose (mg/dL) 102 H (75-99) mg/dL Total Protein 5.9 L (6.3-8.2) g/dL Assessment and Plan Plan: Assessment: #1 severe multivessel coronary artery disease with severe amount mitral regurgitation, status post mitral valve repair and bypass grafting, four-vessel , postop day 8 #2 cardiomyopathy with ejection fraction of 25-30% #3 atrial fibrillation with rapid ventricular response. Currently in a normal sinus rhythm. #4 Moderate pulmonary hypertension. #5 Valvular heart disease. #6 diffuse central lobar emphysema #7. Bilateral pleural effusion #8. Systolic heart failure #9 History of previous tobacco dependence. #10 Hypertension. #11 Crohn's disease. Plan: Patient continues to improve, no worsening dyspnea, he is on room air, tolerating ambulation. Remains in sinus rhythm. He is maintaining negative fluid balance, receiving IV diuretics per cardiothoracic surgery. Vital signs are stable, he is afebrile. Is doing very well. And is anticipated to be discharged home today. He will need follow-up appointment with Dr. Kuhn in the office in 7 days I performed a history & physical examination of the patient and discussed their management with my nurse practitioner, Parvin Arango. I reviewed the nurse practitioner's note and agree with the documented findings and plan of care. Lung sounds are positive for some scattered rhonchi. The findings and the impression was discussed with the patient. I attest to the documentation by the nurse practitioner. Time with Patient: Less than 30
[2017-06-18 11:30] LABS: Glucose,Whole Blood 111 mg/dL (75-99)
[2017-06-18] MEDS ORDERED: FUROSEMIDE 10 MG/ML 4 ML VIAL IV STA (11:52)
--- NOTE | 2017-06-18 11:52 | ECHOF ---
Referral Reason:assess lvf MEASUREMENTS -------- HEIGHT: 177.8 cm WEIGHT: 82.6 kg BP: 105/60 IVSd: 1.4 cm (0.6 - 1.1) LVIDd: 5.6 cm (3.9 - 5.3) LVPWd: 1.5 cm (0.6 - 1.1) IVSs: 1.6 cm LVIDs: 5.2 cm LVPWs: 1.7 cm LA Diam: 4.0 cm (2.7 - 3.8) RAP: 15.00 mmHg RVSP: 39.49 mmHg FINDINGS -------- This was a technically adequate study. Limited Study The left ventricular size is normal. There is moderate concentric left ventricular hypertrophy. O verall left ventricular systolic function is severely impaired with, an EF between 20 - 25 %. The right ventricle is normal in size. Mild tricuspid regurgitation present. There is mild pulmonary hypertension. The right ventricular systolic pressure, as measured by Doppler, is 39.49mmHg. There is no pericardial effusion. CONCLUSIONS -------- 1. This was a technically adequate study. 2. Limited Study 3. The left ventricular size is normal. 4. There is moderate concentric left ventricular hypertrophy. 5. Overall left ventricular systolic function is severely impaired with, an EF between 20 - 25 %. 6. The right ventricle is normal in size. 7. Mild tricuspid regurgitation present. 8. There is mild pulmonary hypertension. 9. The right ventricular systolic pressure, as measured by Doppler, is 39.49mmHg. 10. There is no pericardial effusion. BUSINESS CONTROL MANAGER: Coco Gonzalez RDCS
[2017-06-18] MEDS: MAGNESIUM SULFATE-D5W PMX 1 GM in DEXTROSE/WATER 1 100ML.BAG IVPB SCH ×2 (12:10→13:23)
[2017-06-18 12:43] VITALS: RESP 16
--- NOTE | 2017-06-18 13:55 | P.PN ---
Subjective Cardiology consultation in progress note dictated. Patient presented to the hospital with non-Q-wave myocardial infarction, he is status post coronary artery bypass grafting surgery and has ischemic cardiomyopathy with documented ejection fraction of 20%. Patient will need a LifeVest placed for prevention of sudden cardiac prior to discharge as recommended by cardiothoracic surgery. Objective - Vital Signs Vital signs: Vital Signs Temp 97.1 F L 06/18/17 12:00 Pulse 82 06/18/17 12:00 Resp 16 06/18/17 12:00 BP 120/65 06/18/17 12:00 Pulse Ox 95 06/18/17 12:00 Intake & Output 06/17/17 06/18/17 06/18/17 18:59 06:59 18:59 Intake Total 478 360 930 Output Total 1400 1000 850 Balance -922 -640 80 Weight 83.2 kg 82.6 kg Intake: IV 10 Invasive Line 10 10 Oral 478 360 920 Output: Urine 1400 1000 850 Other: Voiding Method Urinal Toilet Toilet Urinal Urinal # Voids 3 # Bowel Movements 1 ABP, PAP, CO, CI - Last Documented Arterial Blood Pressure 61/37 Pulmonary Artery Pressure 47/22 Cardiac Output 5.2 Cardiac Index 2.5 - Labs CBC & Chem 7: 06/18/17 08:31 06/18/17 08:31 Labs: Abnormal Lab Results - Last 24 Hours (Table) 06/17/17 06/17/17 06/18/17 Range/Units 16:38 20:45 05:55 RBC (4.30-5.90) m/uL Hgb (13.0-17.5) gm/dL Hct (39.0-53.0) % Neutrophils # (1.3-7.7) k/uL Lymphocytes # (1.0-4.8) k/uL Sodium (137-145) mmol/L Chloride (98-107) mmol/L Carbon Dioxide (22-30) mmol/L BUN (9-20) mg/dL Glucose (74-99) mg/dL POC Glucose (mg/dL) 154 H 150 H 102 H (75-99) mg/dL Total Protein (6.3-8.2) g/dL 06/18/17 06/18/17 06/18/17 Range/Units 08:31 08:31 11:22 RBC 3.24 L (4.30-5.90) m/uL Hgb 9.1 L (13.0-17.5) gm/dL Hct 28.3 L (39.0-53.0) % Neutrophils # 8.5 H (1.3-7.7) k/uL Lymphocytes # 0.5 L (1.0-4.8) k/uL Sodium 131 L (137-145) mmol/L Chloride 90 L (98-107) mmol/L Carbon Dioxide 31 H (22-30) mmol/L BUN 27 H (9-20) mg/dL Glucose 104 H (74-99) mg/dL POC Glucose (mg/dL) 111 H (75-99) mg/dL Total Protein 5.9 L (6.3-8.2) g/dL
--- NOTE | 2017-06-18 14:42 | P.PN ---
Subjective Progress Note Date: 06/18/17 This is a pleasant 71-year-old gentleman with no prior documented history of hypertension, no diabetes, no hyperlipidemia, nonsmoker, rare EtOH, history of Crohn's disease and enlarged prostate, who states as an outpatient he 's been dealing with symptoms of shortness of breath, fever, and productive cough of yellow sputum. He has gone to see his primary care physician as an outpatient, and has been on 2 courses of antibiotics along with steroids. In spite of this patient continues to feel short of breath, continues to have a productive cough as well as fever. For this reason he presented to [facility]. White blood cell count on arrival here 4.8, hemoglobin 11.5 , platelet count 153. Sodium 136, potassium 3.7, BUN 12, creatinine 1.0, magnesium 1.5. Troponin 0.03, BNP elevated at 7250. Chest x-ray performed at [facility] did show some congestive heart failure. Patient had an EKG performed [facility] which showed atrial fibrillation with a rapid ventricular response. According to the patient, he has no prior documented history of atrial fibrillation. EKG on arrival here shows normal sinus rhythm, sinus tachycardia with PACs. Blood pressure 128/80, heart rate in the 90s, 95% on room air. Afebrile. No labs were performed here. At the time of my examination this morning, patient has a nonrebreather on, he is satting 95%. Still appears to be quite short of breath. Continues to have productive cough. 06/02/2017 Patient was diuresed through the night on IV Lasix, overall is feeling significantly better today. White blood cell count 5.7, hemoglobin 12.3, platelet count 165. Sodium 135, potassium 4.9, BUN 23, creatinine 1.2. BNP level 6190, TSH 2.5. An echocardiogram with Doppler study was performed which revealed an ejection fraction of 25-30%. Severe global hypokinesia noted. Moderate to severe MR, moderate to severe TR. The results of this were explained to the patient in detail, he was advised to undergo cardiac catheterization to rule out underlying coronary artery disease. The risks and the benefits were explained to the patient and his in detail, this will be performed tomorrow by Dr. Perry. 06/08/2017 Patient did undergo cardiac catheterization which revealed evidence of left main disease with significant mitral regurgitation on RUT. He is scheduled to undergo surgery this week. He was seen and examined this morning, breathing is stable, denies any chest discomfort. Blood pressure 110/60 with a heart rate in the 70s, 96% on room air. Hemoglobin 11.4, platelet count 244. Sodium 139, potassium 4.0, BUN 31, creatinine 0.9. 06/16/2017 Patient is seen on the telemetry unit, status post coronary bypass grafting surgery, he did have an episode of atrial fibrillation earlier, currently in normal sinus rhythm, at times junctional rhythm. He is on IV amiodarone currently hemoglobin 8.4 today, blood pressure 110/58 with a heart rate in the 50s. 06/17/2017 Patient seen and examined this morning, he's up ambulating in the hallway today without any difficulty. Went back into atrial fibrillation with rapid ventricular response. He is currently on IV amiodarone which we will discontinue and start the patient on amiodarone 200 mg one tablet by mouth 3 times a day today. Hemoglobin 8.8 today, sodium 132, potassium 4.7, BUN 25, creatinine 1.0. Magnesium 2.0. At pressure 122/70 with a heart rate in the 70s. 06/18/2017 Patient seen and examined this morning, remaining now in normal sinus rhythm. Up ambulating in the hallway without any difficulty. Repeat echocardiogram with Doppler study was performed today, limited views, revealed an ejection fraction of 20-25%. Patient was advised to placement of a LifeVest prior to discharge by cardiothoracic surgery. LV function will be reevaluated as an outpatient. He is hemodynamically stable. Objective - Vital Signs Vital signs: Vital Signs Temp 97.1 F L 06/18/17 12:00 Pulse 82 06/18/17 12:00 Resp 16 06/18/17 12:00 BP 120/65 06/18/17 12:00 Pulse Ox 95 06/18/17 12:00 Intake & Output 06/17/17 06/18/17 06/18/17 18:59 06:59 18:59 Intake Total 478 360 930 Output Total 1400 1000 850 Balance -922 -640 80 Weight 83.2 kg 82.6 kg Intake: IV 10 Invasive Line 10 10 Oral 478 360 920 Output: Urine 1400 1000 850 Other: Voiding Method Urinal Toilet Toilet Urinal Urinal # Voids 3 # Bowel Movements 1 ABP, PAP, CO, CI - Last Documented Arterial Blood Pressure 61/37 Pulmonary Artery Pressure 47/22 Cardiac Output 5.2 Cardiac Index 2.5 - Exam PHYSICAL EXAMINATION: HEENT: Head is atraumatic, normocephalic. Pupils equal, round. Neck is supple. There is no elevated jugular venous pressure. HEART EXAMINATION: Heart S1 and S2 irregular irregular systolic murmur is heard CHEST EXAMINATION: Lungs are clear with diminished air entry to bilateral bases. ABDOMEN: Soft, nontender. Bowel sounds are heard. No organomegaly noted. EXTREMITIES: 2+ peripheral pulses with no evidence of peripheral edema and no calf tenderness noted. Lateral SANJEEV hose and Venodyne's in place NEUROLOGIC patient is awake, alert and oriented -3. . - Labs CBC & Chem 7: 06/18/17 08:31 06/18/17 08:31 Labs: Abnormal Lab Results - Last 24 Hours (Table) 06/17/17 06/17/17 06/18/17 Range/Units 16:38 20:45 05:55 RBC (4.30-5.90) m/uL Hgb (13.0-17.5) gm/dL Hct (39.0-53.0) % Neutrophils # (1.3-7.7) k/uL Lymphocytes # (1.0-4.8) k/uL Sodium (137-145) mmol/L Chloride (98-107) mmol/L Carbon Dioxide (22-30) mmol/L BUN (9-20) mg/dL Glucose (74-99) mg/dL POC Glucose (mg/dL) 154 H 150 H 102 H (75-99) mg/dL Total Protein (6.3-8.2) g/dL 06/18/17 06/18/17 06/18/17 Range/Units 08:31 08:31 11:22 RBC 3.24 L (4.30-5.90) m/uL Hgb 9.1 L (13.0-17.5) gm/dL Hct 28.3 L (39.0-53.0) % Neutrophils # 8.5 H (1.3-7.7) k/uL Lymphocytes # 0.5 L (1.0-4.8) k/uL Sodium 131 L (137-145) mmol/L Chloride 90 L (98-107) mmol/L Carbon Dioxide 31 H (22-30) mmol/L BUN 27 H (9-20) mg/dL Glucose 104 H (74-99) mg/dL POC Glucose (mg/dL) 111 H (75-99) mg/dL Total Protein 5.9 L (6.3-8.2) g/dL Assessment and Plan Plan: Assessment and plan #1 status post coronary bypass grafting surgery and mitral valve repair #2 cardiomyopathy ischemic #3 paroxysmal atrial fibrillation #4 history of prior nicotine dependence #5 hyperlipidemia #6 hypertension Plan From cardiology's perspective, patient may be able to be discharged once cleared by primary and cardiothoracic surgery. We will make him a follow-up appointment to see Dr. Perry in the office post discharge. DNP note has been reviewed, I agree with a documented findings and plan of care. Patient was seen and examined.
--- NOTE | 2017-06-18 14:55 | P.DS ---
Providers Date of admission: 06/01/17 06:24 Expected date of discharge: 06/18/17 Attending physician: Reinaldo Davila Consults: 06/01/17 08:31 Consult Physician Routine Consulting Provider: Danay Mazariegos Consult Reason/Comments: a fib Do you want consulting provider notified?: Yes 06/01/17 14:30 Consult Physician Routine Consulting Provider: Yolanda Kuhn Consult Reason/Comments: THorasic lymphadenopathy, dyspnea Do you want consulting provider notified?: Yes 06/05/17 14:47 Consult Physician Routine Consulting Provider: Reinaldo Davila Consult Reason/Comments: CAD, MR Do you want consulting provider notified?: Already Contacted 06/07/17 14:40 Consult to Anesthesia Routine Consulting Provider: Anesthesia,Services Consult Reason/Comments: Cardiac Surgery Pre-Op 06/08/17 10:15 Consult Physician Routine Consulting Provider: Cortney Montana Consult Reason/Comments: dental clearance Do you want consulting provider notified?: Yes 06/10/17 15:11 Consult Physician Routine Consulting Provider: Madhav Huertas Consult Reason/Comments: medical managment Do you want consulting provider notified?: Already Contacted Primary care physician: Mauricio Keith MD - Discharge Diagnosis(es) (1) Acute systolic heart failure Current Visit: Yes Status: Acute (2) CAD (coronary artery disease) Current Visit: Yes Status: Acute (3) COPD (chronic obstructive pulmonary disease) with emphysema Current Visit: Yes Status: Acute (4) New onset a-fib Current Visit: Yes Status: Acute (5) Family history of heart disease Current Visit: Yes Status: Chronic (6) History of Crohn's disease Current Visit: Yes Status: Chronic (7) Mitral regurgitation Current Visit: Yes Status: Chronic (8) Tracheobronchitis Current Visit: Yes Status: Chronic (9) Tobacco dependence in remission Current Visit: No Status: Resolved Hospital Course: FINAL DIAGNOSIS: 1. Multivessel coronary artery disease 2. Severe mitral valve regurgitation 3. Acute on chronic systolic heart failure with an ejection fraction of 20-25% 4. Ischemic cardiomyopathy 5. Previous medical history of Crohn's 6. New-onset preoperative paroxysmal atrial fibrillation treated preoperatively with amiodarone and Xarelto 7. Recent preoperative tracheobronchitis 8. Benign prostatic hypertrophy 9. Previous tobacco dependence with current FEV1 58% of predicted PRINCIPAL PROCEDURE: 1. Selective right and left angiography with IVUS 2. Transesophageal echocardiogram 3. Urgent coronary artery bypass grafting 4 with left internal mammary artery graft to the left anterior descending coronary artery, reverse greater saphenous vein grafts to the obtuse marginal coronary artery, high diagonal coronary artery and right coronary artery. 4. Mitral valve annuloplasty with a #26 physio-Ring. 5. Modified Schuler maze procedure with complete left-sided lesion set and ligation of left atrial appendage. 6. Endoscopic vein harvesting of his left and right greater saphenous veins. 7. Intraoperative transesophageal echocardiogram performed by anesthesia. HISTORY OF PRESENT ILLNESS: This is a 71-year-old gentleman who follows with Dr. Mauricio Keith on an outpatient basis. His medical history is significant for Crohn's disease, benign prostatic hypertrophy and a remote history of smoking which he quit in 1998. Recently he was undergoing treatment for tracheobronchitis in which she was on antibiotics and steroids. On 06/01/2017 he presented to the emergency department at [facility] with complaints of progressive shortness of breath with exertion, cough, and fever. When he presented to the emergency department he was found to be in new onset atrial fibrillation with rapid ventricular response. Subsequently he was transferred to [facility] for further treatment and evaluation. HOSPITAL COURSE: The patient was admitted to [facility] and while in the emergency department he underwent a computed tomography scan of his chest which was negative for pulmonary embolus although it did show a background of mild to moderate underlying emphysematous change with mild cardiomegaly and small bilateral pleural effusions. For further workup the patient underwent a 2-D echocardiogram which showed moderate to severe mitral valve regurgitation, moderate to severe tricuspid valve regurgitation, and an overall left ventricular systolic function to be severely impaired with an ejection fraction between 25 and 30%. On 06/03/2017 the patient underwent a cardiac catheterization which demonstrated a 40-50% stenosis to his left main coronary artery, a 20% stenosis to his mid segment of his left anterior descending coronary artery, a 40-50% stenosis to his circumflex coronary artery , and a 50% stenosis to his mid right coronary artery. During the heart catheterization an intervascular ultrasound of the distal left main was completed which demonstrated the tightest segment showed area of 6.7 mm and a maximum diameter of 3.3 mm. At the largest area, the area was 24.7 mm with a maximum diameter of 6 mm. Subsequently to further evaluate his valvular pathology a transesophageal echocardiogram was completed on 06/05/2017 which demonstrated thickening of the mitral valve leaflets with failure of contraction and moderate to severe mitral valve regurgitation, mild to moderate tricuspid valve regurgitation and dilated left ventricle with severely impaired left ventricular systolic function with global hypokinesia with an ejection fraction of 20-25%. Subsequently due to the patient's presenting symptoms, 2-D echocardiogram results, and cardiac catheterization results a consult was placed to Dr. Davila from cardiothoracic surgery to further evaluate the patient for possible myocardial revascularization and mitral valve surgery. Dr. Davila met with the patient and his family and discussed the cardiac catheterization results and echocardiogram results with the patient. He recommended patient undergo a coronary artery bypass grafting surgery, mitral valve repair surgery with a modified Schuler maze procedure. After obtaining consent the patient was taken to the operating room where he underwent an urgent coronary artery bypass grafting 4 with placement of his left internal mammary artery to his left anterior descending coronary artery, reverse saphenous vein grafts to his obtuse marginal coronary artery, high diagonal coronary artery, and right coronary artery. He also underwent a mitral valve annuloplasty with a 26 mm physio-Ring, modified Schuler maze procedure with complete left-sided lesion set and ligation of the left atrial appendage. Also during the surgery he underwent endovascular vein harvesting of his right and left greater saphenous veins, and intraoperative transesophageal echocardiogram performed by anesthesia. Postoperatively the patient was transferred to the cardiovascular intensive care unit where he had some postoperative acute blood loss anemia requiring sternal reexploration for bleeding. He was subsequently transferred back to the cardiovascular intensive care unit where he was recovered, monitored hemodynamically and where he progressed cardiac rehabilitation phase 1. He was extubated, all lines, tubes and supportive drips were discontinued when appropriate and he was transferred to [address] [place] [id number] for further monitoring and rehabilitation. His oxygen was eventually titrated down, he continued to work with physical and occupational therapy and was ready to be discharged home on postoperative day #8. He has received written and verbal instructions regarding his medications, activity restrictions, signs and symptoms requiring physician notification and follow-up appointments. COMPLICATIONS: His postoperative period was complicated by some postoperative acute blood loss anemia requiring sternal reexploration for bleeding. CONSULTATIONS: 1. Dr. Perry for cardiology management 2. Dr. Kuhn for pulmonary and ventilator management 3. Dr. Bates for dental management 4. Dr. Edwards for medical management DISCHARGE INSTRUCTIONS: 1. No driving for 4 weeks, or until physician gives their ok. 2. The patient should sleep in their own bed, no medical bed needed. 3. Stairs are not an issue. If the bedroom is upstairs, it is advised that the patient go up at night and down in the morning for the first week. Go slowly, using handrail and take 1 step at a time. 4. SANJEEV hose are to be worn for 30 days or until physician discontinues. 5. Heart hugger is to be worn 100% of the time until physician discontinues.( except when showering) 6. No lifting, pushing, or pulling more than 10 pounds for 12 weeks. The physician will advise of any restriction changes. 7. The patient is expected to continue the prescribed walking program. 8. Continue pain control per as needed orders. 9. Continue with incentive spirometry and splinting/heart hugger until otherwise directed by the physician. 10. Must shower daily using liquid antibacterial soap and a separate white washcloth for each individual incision. 11. Routine sternal incision care, no ointments, lotions or powders on the incisions. 12. Please notify surgeon/nurse practitioner for temperature greater than 101F or purulent drainage from incisions 13. Prescriptions for first 30 days given per cardiac surgery service. After 30 days, all prescription refills obtained through cardiology/primary care physician. 14. A red arm and has been placed on this patient it should be worn for 30 days post surgery and will be removed by the cardiothoracic surgeons. If an ER visit is necessary, please make sure the number on the red arm band is called. 15. The patient will be discharged home with a LifeVest in place. LifeVest instructions have been provided to the patient and his . HOME HEALTH SERVICES TO PROVIDE: RN SKILLED HOME CARE SERVICES FOR POST-OP SURGICAL PATIENTS WITH THE FOLLOWING: Coronary Artery Bypass Surgery (CABG), Mitral Valve Replacement/ Repair ( MVR), Aortic Valve Replacement/Repair (AVR) RN TO CONTINUE EDUCATION FROM ``ROAD TO A HEALTH HEART PATIENT EDUCATION MANUAL" (GIVEN TO PATIENT IN THE HOSPITAL) MEDICATION RECONCILIATION WITH EDUCATION NEEDED ON FIRST HOME VISIT EMPHASIZE IMPORTANCE OF WEARING BREAST SUPPORT/HEART HUGGER ENCOURAGE USE OF INCENTIVE SPIROMETER 10 X EVERY HOUR WHILE AWAKE ENCOURAGE UTILIZATION OF LOWER EXTREMITY COMPRESSION STOCKINGS/SANJEEV HOSE and ELEVATE LEGS ABOVE LEVEL OF HEART WHILE AT REST. ENCOURAGE AMBULATION 3-5x/day INCREASING TOLERATES, WHILE AVOID EXTREMES IN TEMPERATURE FREQUENCY: RN TO OPEN THE PATIENT WITHIN 24 HOURS OF DISCHARGE FROM THE HOSPITAL WITH TELEHEALTH INSTALLED AT [facility], RN TO VISIT 2-3 X A WEEK FOR 4 WEEKS ESTABLISHED BY PATIENT NEEDS. LABORATORY: CBC, CMP TO BE DRAWN ON THE THIRD DAY HOME, 06/22/2017 (RAN STAT ) FAX RESULTS TO [phone]. TELEHEALTH PARAMETERS: WEIGHT: NOTIFY MD OF WEIGHT GAIN OF 2 LBS IN 24 HOURS OR 5 LBS IN ONE WEEK HR: NOTIFY MD OF HR <55 BPM OR HR>100 BPM BP: NOTIFY MD IF BP <90/55 OR BP>140/100 O2 SAT: NOTIFY MD IF PO2<93% ON ROOM AIR SEND TELEHEALTH REPORT TO [facility] AND CARDIOVASCULAR SURGEON THE FIRST WEEK OF CARE AND THEN BI-WEEKLY. PLEASE ADDITIONALLY COMMUNICATE ANY ABNORMALS AND NEW FINDINGS TO THE SURGEONS OFFICE. Plan - Discharge Summary Discharge Rx Participant: No New Discharge Prescriptions: New HYDROcodone/APAP 5-325MG [[place] 5-325] 1 each PO Q4HR PRN #30 tab PRN Reason: Moderate Pain Amiodarone [Cordarone] 200 mg PO TID #42 tab Apixaban [Eliquis] 5 mg PO BID #30 tab Aspirin 81 mg PO DAILY #30 chew Atorvastatin [Lipitor] 40 mg PO DAILY #30 tab Furosemide [Lasix] 40 mg PO DAILY #30 tab hydrALAZINE HCL [Apresoline] 25 mg PO TID #90 tab Lisinopril [Zestril] 2.5 mg PO DAILY@1200 #30 tab Metoprolol Tartrate [Lopressor] 25 mg PO BID #60 tab Pantoprazole [Protonix] 40 mg PO AC-BRKFST #30 tablet. Sennosides-Docusate Sodium [Senokot-S] 2 each PO HS #30 tab Spironolactone [Aldactone] 25 mg PO DAILY #30 tab Tamsulosin [Flomax] 0.4 mg PO PC-BRKFST #30 cap.er.24h Continue Mesalamine [Pentasa] 1,000 mg PO QID Soolantra 1 applic TOPICAL DAILY Multivitamin [Men's Multi-Vitamin] 1 tab PO DAILY Cyanocobalamin (Vitamin B-12) [Vitamin B-12] 2,000 mcg PO DAILY Cholecalciferol (Vitamin D3) [Vitamin D3] 2,000 unit PO DAILY Albuterol Sulfate [Proair Hfa] 1 - 2 puff INHALATION RT-Q6H PRN PRN Reason: Shortness Of Breath Discontinued Aspirin 81 mg PO DAILY Codeine Phosphate/Guaifenesin [Cheratussin AC Syrup] 5 - 10 ml PO Q6H PRN PRN Reason: Cough Doxazosin Mesylate [Doxazosin Mesylate] 4 mg PO BID Discharge Medication List Albuterol Sulfate [Proair Hfa] 1 - 2 puff INHALATION RT-Q6H PRN 06/01/17 [ History] Cholecalciferol (Vitamin D3) [Vitamin D3] 2,000 unit PO DAILY 06/01/17 [History] Cyanocobalamin (Vitamin B-12) [Vitamin B-12] 2,000 mcg PO DAILY 06/01/17 [ History] Mesalamine [Pentasa] 1,000 mg PO QID 06/01/17 [History] Multivitamin [Men's Multi-Vitamin] 1 tab PO DAILY 06/01/17 [History] Soolantra 1 applic TOPICAL DAILY 06/01/17 [History] Amiodarone [Cordarone] 200 mg PO TID #42 tab 06/18/17 [Rx] Apixaban [Eliquis] 5 mg PO BID #30 tab 06/18/17 [Rx] Aspirin 81 mg PO DAILY #30 chew 06/18/17 [Rx] Atorvastatin [Lipitor] 40 mg PO DAILY #30 tab 06/18/17 [Rx] Furosemide [Lasix] 40 mg PO DAILY #30 tab 06/18/17 [Rx] HYDROcodone/APAP 5-325MG [[place] 5-325] 1 each PO Q4HR PRN #30 tab 06/18/17 [Rx] Lisinopril [Zestril] 2.5 mg PO DAILY@1200 #30 tab 06/18/17 [Rx] Metoprolol Tartrate [Lopressor] 25 mg PO BID #60 tab 06/18/17 [Rx] Pantoprazole [Protonix] 40 mg PO YOLANDA-JERMAINEKFSAngelina #30 06/18/17 [Rx] Sennosides-Docusate Sodium [Senokot-S] 2 each PO HS #30 tab 06/18/17 [Rx] Spironolactone [Aldactone] 25 mg PO DAILY #30 tab 06/18/17 [Rx] Tamsulosin [Flomax] 0.4 mg PO PC-BRKFST #30 cap.er.24h 06/18/17 [Rx] hydrALAZINE HCL [Apresoline] 25 mg PO TID #90 tab 06/18/17 [Rx] Follow up Appointment(s)/Referral(s): Iain Perry MD [STAFF PHYSICIAN] - 06/29/17 2:15 pm Mauricio Keith MD [Primary Care Provider] - 1 Week (Dr. Keith's office will call with a follow-up appointment per the agricultural services director Micheline.) Reinaldo Davila MD [STAFF PHYSICIAN] - 07/16/17 2:00 pm [facility], [NON-STAFF] - Yolanda Kuhn MD [STAFF PHYSICIAN] - 07/03/17 1:00 pm Ritesh Monet NPC [Nurse Practitioner] - 06/24/17 1:15 pm Ambulatory/Diagnostic Orders: Complete Blood Count w/diff [LAB.AMB] Time Frame: 06/22/17, Facility: [facility], Location: Laboratory [facility] Comprehensive Metabolic Panel [LAB.AMB] Time Frame: 06/22/17, Facility: [facility], Location: [facility] Activity/Diet/Wound Care/Special Instructions: Pts copay for Eliquis is $45/month Discharge Disposition: HOME WITH HOME HEALTH SERVICES
--- NOTE | 2017-06-18 15:04 | P.PN ---
Subjective Progress Note Date: 06/18/17 Principal diagnosis: Chest pain Patient is a 71-year-old male with a past medical history of BPH, neuropathy, Crohn's disease, and nephrolithiasis who presented initially to [facility] with complaints of shortness of breath. There he underwent extensive evaluation. His found to be tachycardic on arrival in EKG showed A. fib with RVR. Initial laboratory analysis was unremarkable. On chest x-ray he was diagnosed with pneumonia. He was given a dose of antibiotics and metoprolol 5 mg IV push. Arrangements were made to transfer him here for cardiology evaluation. Repeat EKG here in the ER showed sinus tachycardia with PACs. Since then he has undergone a prolonged hosital course this is my first evaluation in 12 days. He was maintained on Solu-Medrol, antibiotics, and bronchodilators. He was found to have congestive heart failure with an ejection fraction of 25-30% associated with severe global hypokinesis, moderate to severe mitral regurgitation, gqhveilh-[id number] tricuspid regurgitation and mild pulmonary hypertension. He was started on Lasix 20 mg IV push every 12 hours. He had also been started on Xarelto for atrial fibrillation. He underwent cardiac catheterization on 06/03/17 was found to have severe distal left main and mild RCA, and moderate left circumflex disease. He also went into A. fib and was started on Cardizem for rapid ventricular response. Carotid doppler was preformed and and shows stenosis of less than 25% in both arteries. Her underwent RUT on 06/06 which showed moderate to sever mitral regurg. He underwent open heart surgery on 06/10 with Bypass grafting X 4 and mitral valve angioplasty. He then was taken back to the OR for sternal exploration and pot op hemorrhage. He has required multiple tranfusions of blood products including 5 untis rRBC, 4 FFP, 2 plts, and 10 of cryo. He did have a mild bump in his Cr.He did have temporary pacemaker in for some time. Patient seen and examined at bedside. Increased coughing had a, states he always coughs a lot after getting out of the shower. No nausea. No vomiting. Sternal pain as tolerated. We discussed his prognosis, chances that he would need a secondary procedure. An additional information. Objective - Vital Signs Vital signs: Vital Signs Temp 97.1 F L 06/18/17 12:00 Pulse 82 06/18/17 12:00 Resp 16 05/03/18 12:00 BP 120/65 06/18/17 12:00 Pulse Ox 95 06/18/17 12:00 Intake & Output 06/17/17 06/18/17 06/18/17 18:59 06:59 18:59 Intake Total 478 360 930 Output Total 1400 1000 850 Balance -922 -640 80 Weight 83.2 kg 82.6 kg Intake: IV 10 Invasive Line 10 10 Oral 478 360 920 Output: Urine 1400 1000 850 Other: Voiding Method Urinal Toilet Toilet Urinal Urinal # Voids 3 # Bowel Movements 1 ABP, PAP, CO, CI - Last Documented Arterial Blood Pressure 61/37 Pulmonary Artery Pressure 47/22 Cardiac Output 5.2 Cardiac Index 2.5 - Exam General: non toxic, no distress, appears at stated age Derm: warm, dry, visible incision with healing over her sternal area Head: atraumatic, normocephalic, symmetric Eyes: EOMI, no lid lag, anicteric sclera Mouth: no lip lesion, mucus membranes moist Cardiovascular: S1S2 reg, no murmur, Lungs: Decreased breath sounds left base , no accessory muscle use, CTs in place and mediastinal tube Abdominal: soft, nontender to palpation, no guarding, no appreciable organomegaly Ext: no gross muscle atrophy, trace edema, no contractures Neuro: CN II-XI grossly intact, no focal neuro deficits Psych: Alert, oriented, appropriate affect - Labs CBC & Chem 7: 06/18/17 08:31 06/18/17 08:31 Labs: Abnormal Lab Results - Last 24 Hours (Table) 06/17/17 06/17/17 06/18/17 Range/Units 16:38 20:45 05:55 RBC (4.30-5.90) m/uL Hgb (13.0-17.5) gm/dL Hct (39.0-53.0) % Neutrophils # (1.3-7.7) k/uL Lymphocytes # (1.0-4.8) k/uL Sodium (137-145) mmol/L Chloride (98-107) mmol/L Carbon Dioxide (22-30) mmol/L BUN (9-20) mg/dL Glucose (74-99) mg/dL POC Glucose (mg/dL) 154 H 150 H 102 H (75-99) mg/dL Total Protein (6.3-8.2) g/dL 06/18/17 06/18/17 06/18/17 Range/Units 08:31 08:31 11:22 RBC 3.24 L (4.30-5.90) m/uL Hgb 9.1 L (13.0-17.5) gm/dL Hct 28.3 L (39.0-53.0) % Neutrophils # 8.5 H (1.3-7.7) k/uL Lymphocytes # 0.5 L (1.0-4.8) k/uL Sodium 131 L (137-145) mmol/L Chloride 90 L (98-107) mmol/L Carbon Dioxide 31 H (22-30) mmol/L BUN 27 H (9-20) mg/dL Glucose 104 H (74-99) mg/dL POC Glucose (mg/dL) 111 H (75-99) mg/dL Total Protein 5.9 L (6.3-8.2) g/dL Assessment and Plan Assessment: MANDY, mild, Cr stable - Can resume ACEI Constipation, resolved Hyponatremia, improving - suspect secondary to volume overload and that this will continue to improve with diuretic use. CAD with severe mitral regurg - s/p CABG X4 with mitral valve repair and sternal reexploriation - management per CT surgery Ischemic cardiomyopathy with moderate plumonary HTN, EF 20-25% % with acute exacerbation - ASA, statin, BB, aldactone, resume DORIE inhibitor - cardio recs Acute blood loss anemia - stable - follow CBC Glucose management - BS well controlled without intervention A fib with RVR, currently rate controlled - amiodarone and BB on hold -Up with this HTN, controlled - Continue current medication regimen - follow BP BPH -Flomax Chron's disease - continue home medication regiment Bronchitis, Failed outpatient treatment, resolved Medically stable for discharge at the discretion of cardiothoracic surgery. DVT prophylaxis: heparin Discussed with: Patient, family, nursing A total of 35 minutes was spent on the care of this complex patient more than 50 % of the time was spent in counseling and care coordination.
[2017-06-18 16:09] VITALS: PULSE 58
[2017-06-18 16:12] VITALS: BP 101/57; TEMP 97.6
[2017-06-18 16:59] LABS: Glucose,Whole Blood 150 mg/dL (75-99)
[2017-06-18] MEDS ORDERED: APIXABAN 5 MG TAB PO SCH (21:00)
[2017-06-19] MEDS ORDERED: FUROSEMIDE 40 MG TAB PO SCH (09:00)
[2017-06-19] MEDS ORDERED: ASPIRIN 81 MG PO SCH (09:00)
[2017-06-19] MEDS ORDERED: LISINOPRIL 2.5 MG TAB PO SCH (12:00)
== END 2017-06-18 18:04 | disposition home health service (06) | DRG 216 ==
LOC: EC 06:10 → 6SEL 06:24 → 6ICU 06-10 09:03 → 6SEL 06-16 00:35
PROVIDERS: ADMIT Thoracic Surgery (Cardiothoracic Vascular Surgery); ATTEND Thoracic Surgery (Cardiothoracic Vascular Surgery)
PROC: B240ZZ3 Ultrasonography of Single Coronary Artery, Intravascular (ICD-10-PCS; principal; 2017-06-03 08:30)
PROC: B2111ZZ Fluoroscopy of Multiple Coronary Arteries using Low Osmolar Contrast (ICD-10-PCS; principal; 2017-06-03 08:30)
PROC: 4A023N7 Measurement of Cardiac Sampling and Pressure, Left Heart, Percutaneous Approach (ICD-10-PCS; principal; 2017-06-03 08:30)
PROC: 06BQ4ZZ Excision of Left Saphenous Vein, Percutaneous Endoscopic Approach (ICD-10-PCS; 2017-06-10 08:00)
PROC: 5A1221Z Performance of Cardiac Output, Continuous (ICD-10-PCS; 2017-06-10 08:00)
PROC: 0W3D0ZZ Control Bleeding in Pericardial Cavity, Open Approach (ICD-10-PCS; 2017-06-10 08:00)
PROC: 02100Z9 Bypass Coronary Artery, One Artery from Left Internal Mammary, Open Approach (ICD-10-PCS; 2017-06-10 08:00)
PROC: 02580ZZ Destruction of Conduction Mechanism, Open Approach (ICD-10-PCS; 2017-06-10 08:00)
PROC: 02L70CK Occlusion of Left Atrial Appendage with Extraluminal Device, Open Approach (ICD-10-PCS; 2017-06-10 08:00)
PROC: 02UG0JZ Supplement Mitral Valve with Synthetic Substitute, Open Approach (ICD-10-PCS; 2017-06-10 08:00)
PROC: B246ZZ4 Ultrasonography of Right and Left Heart, Transesophageal (ICD-10-PCS; 2017-06-10 08:00)
PROC: 021209W Bypass Coronary Artery, Three Arteries from Aorta with Autologous Venous Tissue, Open Approach (ICD-10-PCS; 2017-06-10 08:00)
DX: I48.1 Persistent atrial fibrillation (principal); I50.23 Acute on chronic systolic (congestive) heart failure; J18.9 Pneumonia, unspecified organism; N17.9 Acute kidney failure, unspecified; D62 Acute posthemorrhagic anemia; E87.1 Hypo-osmolality and hyponatremia; K50.90 Crohn's disease, unspecified, without complications; I97.611 Postprocedural hemorrhage of a circulatory system organ or structure following cardiac bypass; I47.2 Ventricular tachycardia; I48.92 Unspecified atrial flutter; E78.5 Hyperlipidemia, unspecified; F17.201 Nicotine dependence, unspecified, in remission; H91.90 Unspecified hearing loss, unspecified ear; H93.13 Tinnitus, bilateral; I08.1 Rheumatic disorders of both mitral and tricuspid valves; I11.0 Hypertensive heart disease with heart failure; I25.10 Atherosclerotic heart disease of native coronary artery without angina pectoris; I25.5 Ischemic cardiomyopathy; I27.20 Pulmonary hypertension, unspecified; I48.0 Paroxysmal atrial fibrillation; J20.9 Acute bronchitis, unspecified; J43.2 Centrilobular emphysema; K59.00 Constipation, unspecified; N40.0 Benign prostatic hyperplasia without lower urinary tract symptoms; R79.1 Abnormal coagulation profile; T45.515A Adverse effect of anticoagulants, initial encounter; Z79.01 Long term (current) use of anticoagulants; Z79.82 Long term (current) use of aspirin; Z79.899 Other long term (current) drug therapy; Z82.3 Family history of stroke; Z82.49 Family history of ischemic heart disease and other diseases of the circulatory system; Z87.442 Personal history of urinary calculi
CPT/HCPCS: 36600; 70355; 71045; 71046; 71275; 80048; 80053; 80061; 80074; 81001; 81003; 82272; 82330; 82805; 83036; 83735; 83880; 84100; 84443; 85025; 85027; 85384; 85520; 85610; 85730; 86850; 86891; 86900; 86901; 86920; 87040; 87070; 87086; 87205; 92978; 93005; 93306; 93308; 93312; 93320; 93325; 93454; 93571; 93880; 93970; 94002; 94003; 94150; 94640; 94760; 96365; 99285

== ENCOUNTER → 2017-07-30 | Outpatient (CLI) | payer MEDICARE ==
[2017-07-30 09:46] LABS: Albumin 3.8 g/dL (3.5-5.0); Potassium 5.2 mmol/L (3.5-5.1); Total Bilirubin 0.4 mg/dL (0.2-1.3); Total Protein 6.4 g/dL (6.3-8.2)
== END | disposition home or self-care (01) ==
LOC: LABWHC1 08:45
PROVIDERS: ATTEND Internal Medicine Interventional Cardiology
DX: I48.0 Paroxysmal atrial fibrillation (principal); E78.2 Mixed hyperlipidemia
CPT/HCPCS: 36415; 80053; 80061; 84443

== ENCOUNTER → 2017-10-08 | Outpatient (CLI) | payer MEDICARE ==
[2017-10-08 11:34] LABS: Albumin 3.8 g/dL (3.5-5.0); Calcium 9.1 mg/dL (8.4-10.2); Potassium 5.2 mmol/L (3.5-5.1); Total Bilirubin 0.5 mg/dL (0.2-1.3); Total Protein 6.6 g/dL (6.3-8.2)
== END | disposition home or self-care (01) ==
LOC: LABWHC1 10:49
PROVIDERS: ATTEND Internal Medicine Interventional Cardiology
DX: E78.2 Mixed hyperlipidemia (principal)
CPT/HCPCS: 36415; 80053; 80061

== ENCOUNTER → 2017-11-03 | Outpatient (CLI) | payer MEDICARE ==
[2017-11-03 09:15] LABS: Calcium 8.9 mg/dL (8.4-10.2); Potassium 4.7 mmol/L (3.5-5.1)
== END | disposition home or self-care (01) ==
LOC: LABWHC1 07:38
PROVIDERS: ATTEND Internal Medicine Interventional Cardiology
DX: E78.2 Mixed hyperlipidemia (principal); I48.0 Paroxysmal atrial fibrillation
CPT/HCPCS: 36415; 80048; 80061; 84450; 84460

== ENCOUNTER → 2018-05-24 | Outpatient (CLI) | payer MEDICARE ==
[2018-05-24 16:42] LABS: ALT 25 U/L (10-49); AST 45 U/L (14-35); Albumin/Globulin Ratio 2.05 (1.60-3.17); Alkaline Phosphatase 75 U/L (41-126); Carbon Dioxide 29.1 mmol/L (21.6-31.8); Chloride 103 mmol/L (96-109); Cholesterol 89 mg/dL (0-200); Glucose 84 mg/dL (70-110); Potassium 4.8 mmol/L (3.5-5.5); Sodium 138 mmol/L (135-145); Total Bilirubin 0.6 mg/dL (0.2-1.2); Total Protein 6.1 g/dL (6.2-8.2); Triglycerides <50.0 mg/dL (0.0-149.0); VLDL Calculation 9.98 mg/dL (5.00-40.00)
== END ==
LOC: LABWHC1 08:53
PROVIDERS: ATTEND Internal Medicine Interventional Cardiology
DX: E78.2 Mixed hyperlipidemia (principal)
CPT/HCPCS: 36415; 80053; 80061

== ENCOUNTER 2018-06-16 08:58 | Day surgery (SDC) | payer MEDICARE ==
[2018-06-11 17:14] VITALS: BMI 23.6
[~2018-06-16 08:58] MED LIST: HEPARIN SODIUM,PORCINE 5,000 UNIT/ML 1 ML VIAL SQ ONE
--- NOTE | 2018-06-16 09:47 | P.GSHP ---
History of Present Illness H&P Date: 06/16/18 Chief Complaint: Left inguinal hernia 72-year-old male seen in the office in March. Patient has complaints of a bulge in the left groin. Mild pain at times. History of previous umbilical hernia repair and left inguinal hernia repair in the past. No change in bowel habits. Past Medical History Past Medical History: Hearing Disorder / Deafness, Hyperlipidemia, Hypertension, Prostate Disorder Additional Past Medical History / Comment(s): Crohn's disease, nephrolithiasis, BPH, tinnitus bilateral along with hearing impairment. History of Any Multi-Drug Resistant Organisms: None Reported Past Surgical History: Coronary Bypass/CABG, Hernia Repair, Tonsillectomy Additional Past Surgical History / Comment(s): lithotripsy, deviated septum, colonoscopies, umbilical and inguinal hernia repairs (laterality unknown). Past Anesthesia/Blood Transfusion Reactions: No Reported Reaction Smoking Status: Former smoker - Past Family History Father Family Medical History: Cancer, Congestive Heart Failure (CHF), Coronary Artery Disease (CAD) Additional Family Medical History / Comment(s): Father had PROSTATE cancer. Father had a CABG in his 70s Mother Family Medical History: CVA/TIA Additional Family Medical History / Comment(s): Mother of a CVA at the age of 53yrs. Medications and Allergies Home Medications Medication Instructions Recorded Confirmed Type Cholecalciferol (Vitamin D3) 2,000 unit PO DAILY 06/01/17 06/16/18 History [Vitamin D3] Cyanocobalamin (Vitamin B-12) 2,000 mcg PO DAILY 06/01/17 06/16/18 History [Vitamin B-12] Multivitamin [Men's Multi-Vitamin] 1 tab PO DAILY 06/01/17 06/16/18 History Aspirin 81 mg PO DAILY #30 chew 06/18/17 06/16/18 Rx Atorvastatin [Lipitor] 40 mg PO DAILY #30 tab 06/18/17 06/16/18 Rx Furosemide [Lasix] 40 mg PO DAILY #30 tab 06/18/17 06/16/18 Rx Metoprolol Tartrate [Lopressor] 25 mg PO BID #60 tab 06/18/17 06/16/18 Rx Spironolactone [Aldactone] 25 mg PO DAILY #30 tab 06/18/17 06/16/18 Rx Tamsulosin [Flomax] 0.4 mg PO -BRKFST #30 cap.er.24h 06/18/17 06/16/18 Rx hydrALAZINE HCL [Apresoline] 25 mg PO TID #90 tab 06/18/17 06/16/18 Rx Finasteride [Proscar] 5 mg PO DAILY 06/11/18 06/16/18 History Sildenafil Citrate [Sildenafil] 20 mg PO DAILY 06/11/18 06/16/18 History Allergies Allergy/AdvReac Type Severity Reaction Status Date / Time No Known Allergies Allergy Verified 06/16/18 09:35 Surgical - Exam Vital Signs Temp Pulse Resp BP Pulse Ox 97.4 F L 60 16 99/57 100 06/16/18 09:33 06/16/18 09:33 06/16/18 09:33 06/16/18 09:33 06/16/18 09:33 Physical exam: General: Well-developed, well-nourished HEENT: Normocephalic, sclerae nonicteric Abdomen: Nontender, nondistended, reducible left inguinal hernia Extremities: No edema Neuro: Alert and oriented Assessment and Plan (1) Left inguinal hernia Narrative/Plan: Will proceed with left inguinal hernia repair at this time. Risks of bleeding, infection, recurrence, bladder and bowel injury, numbness, nerve injury, conversion to an open procedure were discussed with the patient. The patient understands and wishes to proceed. Current Visit: Yes Status: Acute Code(s): K40.90 - UNIL INGUINAL HERNIA, W/O OBST OR GANGR, NOT SPCF RECUR SNOMED Code(s): 203361715
[2018-06-16] MEDS ORDERED: LIDOCAINE 1% 20 ML VIAL (10MG/ML) FOR IV START INTRADERMA ONE ×2 (09:56→09:57)
[2018-06-16] MEDS ORDERED: LACTATED RINGERS 1,000 ML IV ONE ×3 (09:57→11:36)
[2018-06-16] MEDS ORDERED: ONDANSETRON 4 MG/2 ML VIAL IVP ONE (10:02)
[2018-06-16] MEDS ORDERED: DEXAMETHASONE SOD PHOS (MDV) 100 MG/10 ML VIAL IV ONE (10:02)
[2018-06-16 10:20] LABS: Basophils % (A) 0 %; Eosinophils % (A) 1 %; HCT 34.6 % (39.0-53.0); HGB 11.4 gm/dL (13.0-17.5); Lymphocytes # (A) 0.5 k/uL (1.0-4.8); Lymphocytes % (A) 12 %; MCH 29.1 pg (25.0-35.0); MCV 88.2 fL (80.0-100.0); Mean Platelet Volume 7.2; Monocytes # (A) 0.3 k/uL (0-1.0); Monocytes % (A) 7 %; Neutrophils # (A) 3.1 k/uL (1.3-7.7); Neutrophils % (A) 78 %; Platelet Count 192 k/uL (150-450); RBC 3.92 m/uL (4.30-5.90); RDW 14.5 % (11.5-15.5)
[2018-06-16 10:36] LABS: Calcium 8.7 mg/dL (8.4-10.2); Potassium 4.6 mmol/L (3.5-5.1)
[2018-06-16] MEDS ORDERED: NEOSTIGMINE 1 MG/ML 10 ML VIAL ONE (10:37)
[2018-06-16] MEDS ORDERED: fentaNYL (PF) 50 MCG/ML 2 ML AMP ONE (10:37)
[2018-06-16] MEDS ORDERED: SUCCINYLCHOLINE CHLORIDE 100 MG/5 ML SYR IV ONE (10:37)
[2018-06-16] MEDS ORDERED: ROCURONIUM BROMIDE 10 MG/ML 10 ML VIAL IV ONE (10:37)
[2018-06-16] MEDS ORDERED: MIDAZOLAM 2 MG/2 ML VIAL ONE (10:37)
[2018-06-16] MEDS ORDERED: ePHEDrine SULFATE/0.9% NACL/PF 50 MG/5 ML SYRINGE IV ONE (10:37)
[2018-06-16] MEDS ORDERED: GLYCOPYRROLATE 0.2 MG/ML 2 ML VIAL ONE (10:37)
[2018-06-16] MEDS ORDERED: LIDOCAINE 1% INJ 10MG/ML (20 ML MDV) ONE (10:37)
[2018-06-16] MEDS ORDERED: PROPOFOL 10 MG/ML 20 ML VIAL IV ONE (10:37)
[2018-06-16] MEDS: ceFAZolin IN SWFI 2 GM/20 ML SYRINGE IVP ONE ×2 (10:55→10:57)
[2018-06-16] MEDS ORDERED: BUPIVACAINE (PF) 0.5% 30 ML VIAL SQ ONE (10:57)
[2018-06-16] MEDS ORDERED: HYDROcodone/APAP 5-325MG 1 EACH TAB PO PRN (12:29)
[2018-06-16] MEDS ORDERED: NALOXONE 0.4 MG/ML 1 ML VIAL IV PRN (12:29)
--- NOTE | 2018-06-16 12:33 | P.OP ---
Date of Procedure: 06/16/18 Procedure(s) Performed: PREOPERATIVE DIAGNOSIS: Left inguinal hernia POSTOPERATIVE DIAGNOSIS: Same PROCEDURE: Laparoscopic repair left inguinal hernia with the da Gallito robot assistance with mesh SURGEON: Kaci EBL: Minimal ANESTHESIA: General COMPLICATIONS: None OPERATIVE PROCEDURE: Patient was placed in the operating table in the supine position. The patient was placed under general anesthesia. The abdomen was prepped and draped in usual sterile fashion. A small curvilinear supraumbilical incision was made. The fascia was retracted anteriorly with Nitish forceps. The Veress needle was inserted. The saline drop test was normal. Insufflation took place to 15 mmHg. An 8mm trocar was placed into the peritoneal cavity. 2 additional 8 mm trochars were placed in the right upper quadrant and left upper quadrant under visualization. The robotic arms were then brought in and docked into place. The fenestrated bipolar was used in the left arm and the laparoscopic marilynn was utilized in the right arm. A 30 12 mm scope was used in the up position. The peritoneal cavity was inspected. The patient had a large indirect hernia on the left side. This contained a portion of the very colonic tissue. The right side was inspected and there was a slight depression at the internal inguinal ring however the patient had a previous open repair. This was not dissected further. The peritoneum was incised in a horizontal fashion cephalad to the internal inguinal ring. Following that careful d issection of the preperitoneal space took place. This took place using both electrocautery, sharp dissection but primarily blunt dissection. Visualization of the pubic tubercle and Noe's ligament took place medially. Full dissection took place laterally as well. The hernia sac was fully dissected. Once we had adequate space the 15 x 10 progrip mesh was advanced into the preperitoneal space and flattened out appropriately to cover all potential hernia sites. No sutures were used. The peritoneal defect was then closed using a locking 2-0 VLok suture. A small defect in the peritoneum at the apex of the hernia sac was closed using a 3-0 Vicryl stitch. This allowed us to tack the redundant hernia sac anteriorly to help prevent future recurrence. The pneumoperitoneum was then evacuated. The skin of all 3 sites was closed using a 4-0 Monocryl stitch. Skin glue was then applied. DISPOSITION: Stable to recovery room
[2018-06-16 12:47] VITALS: TEMP 96.8
[2018-06-16] MEDS ORDERED: TAMSULOSIN 0.4 MG CAP.ER.24H PO STA (12:56)
[2018-06-16] MEDS: HYDROmorphone 0.5 MG/0.5 ML SYRINGE IVP ONE ×2 (13:15→13:25)
[2018-06-16] MEDS ORDERED: HYDROcodone/APAP 5-325MG 1 EACH TAB PO ONE (14:17)
[2018-06-16 14:32] VITALS: RESP 18
[2018-06-16 14:54] VITALS: BP 114/77; PULSE 69
== END 2018-06-16 13:05 | disposition home or self-care (01) ==
LOC: OR 08:58
PROVIDERS: ATTEND Surgery
DX: K40.90 Unilateral inguinal hernia, without obstruction or gangrene, not specified as recurrent (principal); Z87.442 Personal history of urinary calculi; K50.90 Crohn's disease, unspecified, without complications; I25.10 Atherosclerotic heart disease of native coronary artery without angina pectoris; I11.0 Hypertensive heart disease with heart failure; I50.9 Heart failure, unspecified; Z87.891 Personal history of nicotine dependence; E78.5 Hyperlipidemia, unspecified; H93.19 Tinnitus, unspecified ear; H91.90 Unspecified hearing loss, unspecified ear; Z95.1 Presence of aortocoronary bypass graft; Z79.82 Long term (current) use of aspirin; Z79.899 Other long term (current) drug therapy
CPT/HCPCS: 80048; 85025; 49650; C1781; J2250; J1644; J2710; J2405; J2001; J3010; J1100; J0330; J2704; J1170; J0690

== ENCOUNTER → 2018-11-02 | Outpatient (CLI) | payer MEDICARE ==
[2018-11-02 17:32] LABS: ALT 24 U/L (10-49); AST 39 U/L (14-35); Chol/HDL Ratio 2.35; Cholesterol 101 mg/dL (0-200); Triglycerides <50.0 mg/dL (0.0-149.0); VLDL Calculation 9.98 mg/dL (5.00-40.00)
== END | disposition home or self-care (01) ==
LOC: LABWHC1 07:46
PROVIDERS: ATTEND Internal Medicine Interventional Cardiology
DX: Z79.899 Other long term (current) drug therapy (principal); E78.2 Mixed hyperlipidemia; G62.9 Polyneuropathy, unspecified
CPT/HCPCS: 36415; 80061; 82306; 84450; 84460

== ENCOUNTER → 2019-11-22 | Outpatient (CLI) | payer MEDICARE ==
[2019-11-22 21:35] LABS: Chol/HDL Ratio 2.57; Cholesterol 95 mg/dL (0-200); Triglycerides <50.0 mg/dL (0.0-149.0)
== END | disposition home or self-care (01) ==
LOC: LABWHC1 10:49
PROVIDERS: ATTEND Nurse Practitioner Adult Health
DX: E78.2 Mixed hyperlipidemia (principal)
CPT/HCPCS: 36415; 80061

== ENCOUNTER → 2020-12-07 | Outpatient (CLI) | payer MEDICARE ==
[2020-12-07 12:49] LABS: Chol/HDL Ratio 1.92 Ratio; HDL Cholesterol 41.6 mg/dL (40.00-60.00); VLDL Calculation 6.4 mg/dL (5.00-40.00)
== END | disposition home or self-care (01) ==
LOC: LABWHC1 07:11
PROVIDERS: ATTEND Nurse Practitioner Adult Health
DX: E78.2 Mixed hyperlipidemia (principal)
CPT/HCPCS: 36415; 80061; 84450; 84460

== ENCOUNTER 2021-01-23 05:51 | Inpatient (IN) | payer MEDICARE ==
[2021-01-23] MEDS ORDERED: DEXAMETHASONE SOD PHOSPHATE 10 MG/ML 1 ML VIAL IVP STA (06:12)
[2021-01-23 06:44] LABS: Basophils % (A) 0 %; Eosinophils % (A) 0 %; HCT 40.1 % (39.0-53.0); HGB 12.9 gm/dL (13.0-17.5); Lymphocytes # (A) 0.2 k/uL (1.0-4.8); Lymphocytes % (A) 6 %; MCH 28.9 pg (25.0-35.0); MCHC 32.3 g/dL (31.0-37.0); MCV 89.5 fL (80.0-100.0); Mean Platelet Volume 8.2; Monocytes # (A) 0.2 k/uL (0-1.0); Monocytes % (A) 6 %; Neutrophils # (A) 2.5 k/uL (1.3-7.7); Neutrophils % (A) 87 %; Platelet Count 149 k/uL (150-450); RBC 4.48 m/uL (4.30-5.90); WBC 2.8 k/uL (3.8-10.6)
--- NOTE | 2021-01-23 06:49 | XR ---
EXAMINATION TYPE: XR chest 2V DATE OF EXAM: 01/23/2021 COMPARISON: 07/03/2017 HISTORY: Pneumonia. Chest pain TECHNIQUE: 2 views FINDINGS: There is patchy interstitial infiltrate in the right mid and lower lung field. There is sim ilar infiltrate at the left lung base. Heart size is normal. There are sternal wires. There are no hi lar masses. There is mild flattening the diaphragm. Bony thorax is intact. IMPRESSION: Bilateral patchy interstitial pneumonia. This probably COPD. Pneumonia is new compared to old exam.
[2021-01-23 06:55] LABS: Albumin 3.6 g/dL (3.5-5.0); Calcium 8.6 mg/dL (8.4-10.2); Potassium 4.7 mmol/L (3.5-5.1); Total Bilirubin 0.9 mg/dL (0.2-1.3)
[2021-01-23 07:14] LABS: Prothrombin Time 10.3 sec (9.0-12.0)
[2021-01-23] MEDS ORDERED: NALOXONE 0.4 MG/ML 1 ML VIAL IV PRN (07:59)
--- NOTE | 2021-01-23 07:59 | ED ---
URI HPI - General Chief Complaint: Upper Respiratory Infection Stated Complaint: Covid+,SOB Time Seen by Provider: 01/23/21 06:03 Source: patient, RN notes reviewed Mode of arrival: ambulatory Limitations: no limitations - History of Present Illness Initial Comments: Patient is a 75-year-old male that presents to the emergency department Covid-positive. notes that she brought him to the hospital due to a decreased oxygen saturation at home. Patient notes that he feels fine and after a few deep breaths he is back to normal. Patient was otherwise well-appearing not complaining of any other issues or complaints. He does know he has a history of COPD but stopped smoking several years ago. Patient denied any chest pain headache nausea vomiting diarrhea constipation fever fatigue chills. - Related Data Home Medications Medication Instructions Recorded Confirmed Cholecalciferol (Vitamin D3) 2,000 unit PO DAILY 06/01/17 06/16/18 [Vitamin D3] Cyanocobalamin (Vitamin B-12) 2,000 mcg PO DAILY 06/01/17 06/16/18 [Vitamin B-12] Multivitamin [Men's Multi-Vitamin] 1 tab PO DAILY 06/01/17 06/16/18 Finasteride [Proscar] 5 mg PO DAILY 06/11/18 06/16/18 Sildenafil Citrate [Sildenafil] 20 mg PO DAILY 06/11/18 06/16/18 Previous Rx's Medication Instructions Recorded Aspirin 81 mg PO DAILY #30 chew 06/18/17 Atorvastatin [Lipitor] 40 mg PO DAILY #30 tab 06/18/17 Furosemide [Lasix] 40 mg PO DAILY #30 tab 06/18/17 Metoprolol Tartrate [Lopressor] 25 mg PO BID #60 tab 06/18/17 Spironolactone [Aldactone] 25 mg PO DAILY #30 tab 06/18/17 Tamsulosin [Flomax] 0.4 mg PO PC-BRKFST #30 cap.er.24h 06/18/17 hydrALAZINE HCL [Apresoline] 25 mg PO TID #90 tab 06/18/17 Hydrocodone/Acetaminophen [Chrisney 1 tab PO Q6HR PRN 3 Days #10 tab 06/16/18 5-325] Allergies Allergy/AdvReac Type Severity Reaction Status Date / Time No Known Allergies Allergy Verified 01/23/21 06:15 Review of Systems ROS Statement: Those systems with pertinent positive or pertinent negative responses have been documented in the HPI. ROS Other: All systems not noted in ROS Statement are negative. Past Medical History Past Medical History: Hearing Disorder / Deafness, Hypertension, Prostate Disorder, Renal Disease Additional Past Medical History / Comment(s): Crohn's disease, nephrolithiasis, BPH, hypertension, COPD, tinnitus bilateral along with hearing impairment. History of Any Multi-Drug Resistant Organisms: None Reported Past Surgical History: Coronary Bypass/CABG, Hernia Repair, Tonsillectomy Additional Past Surgical History / Comment(s): lithotripsy, deviated septum, colonoscopies, umbilical and inguinal hernia repairs (laterality unknown). Past Anesthesia/Blood Transfusion Reactions: No Reported Reaction Past Psychological History: No Psychological Hx Reported Smoking Status: Never smoker Past Alcohol Use History: Rare Past Drug Use History: None Reported - Past Family History Father Family Medical History: Cancer, Congestive Heart Failure (CHF), Coronary Artery Disease (CAD) Additional Family Medical History / Comment(s): Father had PROSTATE cancer. Father had a CABG in his 70s Mother Family Medical History: CVA/TIA Additional Family Medical History / Comment(s): Mother of a CVA at the age of 53yrs. General Exam Limitations: no limitations General appearance: alert, in no apparent distress Head exam: Present: atraumatic, normocephalic, normal inspection Eye exam: Present: normal appearance, PERRL, EOMI. Absent: scleral icterus, conjunctival injection, periorbital swelling ENT exam: Present: normal exam, mucous membranes moist Neck exam: Present: normal inspection Respiratory exam: Present: decreased breath sounds (Bilaterally). Absent: respiratory distress, wheezes, rales, rhonchi, stridor Cardiovascular Exam: Present: regular rate, normal rhythm, normal heart sounds. Absent: systolic murmur, diastolic murmur, rubs, gallop, clicks GI/Abdominal exam: Present: soft, normal bowel sounds. Absent: distended, tenderness, guarding, rebound, rigid Extremities exam: Present: normal inspection, full ROM, normal capillary refill. Absent: tenderness, pedal edema, joint swelling, calf tenderness Neurological exam: Present: alert, oriented X3 Psychiatric exam: Present: normal affect, normal mood Skin exam: Present: warm, dry, intact, normal color. Absent: rash Course Vital Signs 01/23/21 06:10 Temperature 97.5 F L Pulse Rate 68 Respiratory 18 Rate Blood Pressure 127/73 O2 Sat by Pulse 85 L Oximetry Medical Decision Making - Medical Decision Making 75-year-old male Covid-positive with decreased oxygen saturations on room air. Labs, chest x-ray, 10 mg of Decadron ordered. 2 L of oxygen via nasal cannula ordered. Chest X ray showed bilateral patchy infiltrates consistent with pneumonia. Covid test positive. Labs are consistent with Covid, elevated LDH. Given patient's oxygen saturation of 85% on room air and need for supplemental oxygen at this point be admitted. Case discussed with Dr. Holt. Dr. Edwards was consulted and will accept the admit. - Lab Data Result diagrams: 01/23/21 06:29 01/23/21 06:29 Lab Results 01/23/21 01/23/21 01/23/21 Range/Units 06:29 06:29 06:29 WBC 2.8 L (3.8-10.6) k/uL RBC 4.48 (4.30-5.90) m/uL Hgb 12.9 L (13.0-17.5) gm/dL Hct 40.1 (39.0-53.0) % MCV 89.5 (80.0-100.0) fL MCH 28.9 (25.0-35.0) pg MCHC 32.3 (31.0-37.0) g/dL RDW 14.0 (11.5-15.5) % Plt Count 149 L (150-450) k/uL MPV 8.2 Neutrophils % 87 % Lymphocytes % 6 % Monocytes % 6 % Eosinophils % 0 % Basophils % 0 % Neutrophils # 2.5 (1.3-7.7) k/uL Lymphocytes # 0.2 L (1.0-4.8) k/uL Monocytes # 0.2 (0-1.0) k/uL Eosinophils # 0.0 (0-0.7) k/uL Basophils # 0.0 (0-0.2) k/uL Sodium 133 L (137-145) mmol/L Potassium 4.7 (3.5-5.1) mmol/L Chloride 103 (98-107) mmol/L Carbon Dioxide 20 L (22-30) mmol/L Anion Gap 10 mmol/L BUN 27 H (9-20) mg/dL Creatinine 1.06 (0.66-1.25) mg/dL Est GFR (CKD-EPI)AfAm 81 (>60 ml/min/1.73 sqM) Est GFR (CKD-EPI)NonAf 70 (>60 ml/min/1.73 sqM) Glucose 154 H (74-99) mg/dL Plasma Lactic Acid Varghese 1.0 (0.7-2.0) mmol/L Calcium 8.6 (8.4-10.2) mg/dL Magnesium 2.0 (1.6-2.3) mg/dL Total Bilirubin 0.9 (0.2-1.3) mg/dL AST 122 H (17-59) U/L ALT 75 H (4-49) U/L Alkaline Phosphatase 114 (38-126) U/L Lactate Dehydrogenase 1082 H (313-618) U/L Total Protein 7.0 (6.3-8.2) g/dL Albumin 3.6 (3.5-5.0) g/dL Coronavirus (PCR) (Not Detectd) 01/23/21 Range/Units 06:29 WBC (3.8-10.6) k/uL RBC (4.30-5.90) m/uL Hgb (13.0-17.5) gm/dL Hct (39.0-53.0) % MCV (80.0-100.0) fL MCH (25.0-35.0) pg MCHC (31.0-37.0) g/dL RDW (11.5-15.5) % Plt Count (150-450) k/uL MPV Neutrophils % % Lymphocytes % % Monocytes % % Eosinophils % % Basophils % % Neutrophils # (1.3-7.7) k/uL Lymphocytes # (1.0-4.8) k/uL Monocytes # (0-1.0) k/uL Eosinophils # (0-0.7) k/uL Basophils # (0-0.2) k/uL Sodium (137-145) mmol/L Potassium (3.5-5.1) mmol/L Chloride (98-107) mmol/L Carbon Dioxide (22-30) mmol/L Anion Gap mmol/L BUN (9-20) mg/dL Creatinine (0.66-1.25) mg/dL Est GFR (CKD-EPI)AfAm (>60 ml/min/1.73 sqM) Est GFR (CKD-EPI)NonAf (>60 ml/min/1.73 sqM) Glucose (74-99) mg/dL Plasma Lactic Acid Varghese (0.7-2.0) mmol/L Calcium (8.4-10.2) mg/dL Magnesium (1.6-2.3) mg/dL Total Bilirubin (0.2-1.3) mg/dL AST (17-59) U/L ALT (4-49) U/L Alkaline Phosphatase (38-126) U/L Lactate Dehydrogenase (313-618) U/L Total Protein (6.3-8.2) g/dL Albumin (3.5-5.0) g/dL Coronavirus (PCR) Detected A (Not Detectd) - EKG Data -: EKG Interpreted by Ca EKG shows normal: sinus rhythm Rate: normal EKG Comments: Ventricular rate 55 bpm, VA interval 186 ms, QRS duration 96 ms, QTC 451 ms, PRT axes 54/46/22, sinus bradycardia, otherwise normal ECG. - Radiology Data Radiology results: report reviewed, image reviewed Chest x-ray: Bilateral patchy interstitial pneumonia. This is probably COPD. Pneumonia is new compared to old exam. Disposition Clinical Impression: Pneumonia due to COVID-19 virus, Hypoxia Disposition: ADMITTED IP TO THIS HOSP Condition: Stable Is patient prescribed a controlled substance at d/c from ED?: No Referrals: Mauricio Keith MD [Primary Care Provider] - 1-2 days Time of Disposition: 07:58
[2021-01-23] MEDS ORDERED: SODIUM CHLORIDE 0.9% 1,000 ML IV SCH (08:00)
[2021-01-23 08:56] LABS: C Reactive Protein 6.4 mg/dL (<1.0)
--- NOTE | 2021-01-23 09:26 | P.HPIM ---
<Gaurav Silver - Last Filed: 01/23/21 12:37> History of Present Illness H&P Date: 01/23/21 History of Presenting Illness: Patient is a very pleasant 75-year-old male with a past medical history significant for multivessel CAD status post CABG and mitral valve replacement, ischemic cardiomyopathy, chronic systolic heart failure with previously known EF of 20-25%, COPD not on home oxygen dependent, hypertension, hyperlipidemia, paroxysmal atrial fibrillation not currently on anticoagulation, IBS/Crohn's disease, and BPH. Patient presented to the emergency department with a chief complaint of shortness of breath, cough, and fatigue after recently being diagnosed with Covid 19 virus infection on Thursday01/18/21 (reports symptoms began on 01/17/21). Patient's reports that patient was found to be hypoxic at home so she brought him to the hospital for further evaluation. Upon arrival to the hospital patient was found to be 85% on room air requiring oxygen supplementation. In the emergency department patient underwent full evaluation. Laboratory values revealing neutropenia with WBC count 2.8, hyponatremia with sodium of 133, prerenal azotemia with BUN of 27, elevated liver enzymes with AST of 122 and ALT of 75 and elevated inflammatory markers with d-dimer 0.83, LDH 1082, and CRP is 6.4. Covid PCR was again positive. Chest x-ray showing bilateral patchy interstitial pneumonia with COPD. EKG showing sinus bradycardia at 55 bpm with no noted T-wave or ST abnormalities showing no signs of acute ischemia. Upon evaluation at bedside, patient resting comfortably on 2 L O2 via nasal cannula with SpO2 of 90% at that time. Patient currently reports recent fevers, chills, body aches, fatigue, shortness of breath, and dry cough. Patient denies any headache, lightheadedness, dizziness, chest pain, palpitations, abdominal pain, nausea, vomiting, diarrhea, or experiencing any numbness/swelling/weakness/tingling in his extremities. Patient and his were educated on recommended treatment with Remdesivr and he and his are declining this treatement at this time as they report being previously advised against the use of this medication. Patient and his were educated that there is only a small window for administration of this medication and to be given additional time to reconsider. Patient reports taking Ivermectin for treatment of his COVID and requesting this to continue. Pt informed that we are not prescribing this medication for treatment of COVID. Patient is not vaccinated against Covid. Review of systems: Pertinent positives and negatives as discussed in HPI, a complete review of systems was performed and all other systems are negative. Physical exam: Vital signs reviewed and stable on 2 L O2 via nasal cannula. General: Nontoxic, no distress and appears stated age. Patient with a thin build. Derm: Skin warm and dry, normal coloration for ethnicity. Head: Atraumatic, normocephalic and symmetric. Eyes: EOMs intact, no lid lag, and anicteric sclera Mouth: no lip lesions, mucus membranes moist Cardiovascular: regular rate and rhythm with normal S1S2, no murmur, positive posterior tibial pulses bilaterally, and cap refill < 2 seconds. No peripheral edema. Lungs: Respirations even, regular, and unlabored on 2 L O2 via nasal cannula.. Lungs with bibasilar crackles, no rhonchi, no rales, no wheezing, and no accessory muscle usage. Abdominal: soft, nontender to palpation, no guarding, no appreciable organomegaly Ext: ROM intact. No gross muscle atrophy, no edema, no contractures Neuro: Speech clear, face symmetrical and CN II-XII grossly intact with no noted focal neuro deficits Psych: Alert and oriented to person, place, time, and situation. Appropriate and pleasant affect. Assessment and Plan of Care: Acute respiratory failure with hypoxia secondary to COVID 19 pneumonia on top of underlying COPD -Oxygenation to be administered and titrated as needed to maintain SPO2 equal to or greater than 90% -Telemetry monitoring. -Continue trending inflammatory markers -Encourage Incentive Spirometry 10-15x hourly while awake -Steroids: Decadron 6 mg daily -Continue vitamin C, Vitamin D, and Zinc. -Pulmonology following, appreciate further recommendations. -DVT prophylaxis with Lovenox. -Strict Droplet plus Contact precautions -Scheduled Ventolin inhaler and as needed for wheezing and/or shortness of breath -Continuation of Pulmicort twice daily Elevated liver enzymes -Likely multi-factorial secondary to current infection with Covid 19 virus and adverse reaction of Ivermectin in which patient was taking at home to treat his Covid. History of multivessel CAD status post CABG and mitral valve replacement, Ischemic cardiomyopath Chronic systolic heart failure with previously known EF of 20-25% History of paroxysmal atrial fibrillation currently in sinus rhythm -Telemetry monitoring -Continuation of daily medication regimen with metoprolol, hydralazine, atorvastatin, and aspirin -DVT prophylaxis with Lovenox IBS/Crohn's disease -Continue daily medication regimen with mesalamine. BPH -Continue daily medication regimen with Flomax twice daily. The patient is admitted with an anticipated greater than 2 midnight stay for evaluation of acute respiratory failure with hypoxia secondary to Covid 19 pneumonia in unvaccinated individual. Surrogate decision-maker: CODE STATUS: Full code DVT prophylaxis: Lovenox Discussed with: Patient and his Anticipated discharge date: Clinical course to determine Anticipated discharge place: Home A total of 45 minutes was spent on the care of this complex patient more than 50% of the time was spent in counseling and care coordination. Past Medical History Past Medical History: Hearing Disorder / Deafness, Hypertension, Prostate Disorder, Renal Disease Additional Past Medical History / Comment(s): Crohn's disease, nephrolithiasis, BPH, hypertension, COPD, tinnitus bilateral along with hearing impairment. History of Any Multi-Drug Resistant Organisms: None Reported Past Surgical History: Coronary Bypass/CABG, Hernia Repair, Tonsillectomy Additional Past Surgical History / Comment(s): lithotripsy, deviated septum, colonoscopies, umbilical and inguinal hernia repairs (laterality unknown). Past Anesthesia/Blood Transfusion Reactions: No Reported Reaction Past Psychological History: No Psychological Hx Reported Smoking Status: Never smoker Past Alcohol Use History: Rare Past Drug Use History: None Reported - Past Family History Father Family Medical History: Cancer, Congestive Heart Failure (CHF), Coronary Artery Disease (CAD) Additional Family Medical History / Comment(s): Father had PROSTATE cancer. Father had a CABG in his 70s Mother Family Medical History: CVA/TIA Additional Family Medical History / Comment(s): Mother of a CVA at the age of 53yrs. Medications and Allergies Home Medications Medication Instructions Recorded Confirmed Type RX: Cyanocobalamin (Vitamin B-12) 4,000 mcg PO DAILY 06/01/17 01/23/21 History [Vitamin B-12] RX: Multivitamin [Men's 1 tab PO DAILY 06/01/17 01/23/21 History Multi-Vitamin] RX: Aspirin 81 mg PO DAILY #30 chew 06/18/17 01/23/21 Rx RX: Atorvastatin [Lipitor] 40 mg PO DAILY #30 tab 06/18/17 01/23/21 Rx RX: Metoprolol Tartrate [Lopressor] 25 mg PO BID #60 tab 06/18/17 01/23/21 Rx Sildenafil Citrate [Sildenafil] 20 mg PO DAILY PRN 06/11/18 01/23/21 History Ascorbic Acid [Vitamin C] 2,000 mg PO DAILY 01/23/21 01/23/21 History Budesonide [Pulmicort] 0.5 mg INHALATION RT-BID 01/23/21 01/23/21 History Cholecalciferol [Vitamin D3 (25 50 mcg PO DAILY 01/23/21 01/23/21 History Mcg = 1000 Iu)] Doxycycline [Vibramycin] 100 mg PO BID 01/23/21 01/23/21 History Mesalamine [Pentasa] 1,000 mg PO TID 01/23/21 01/23/21 History Quercetin With Bromelain 1 tab PO HS 01/23/21 01/23/21 History RX: Aspirin 325 mg PO Q6H PRN 01/23/21 01/23/21 History RX: Ivermectin [Stromectol] 18 mg PO DAILY 01/23/21 01/23/21 History RX: Tamsulosin [Flomax] 0.4 mg PO BID 01/23/21 01/23/21 History RX: hydrALAZINE HCL [Apresoline] 25 mg PO BID 01/23/21 01/23/21 History Zinc Gummy 1 tab PO HS 01/23/21 01/23/21 History metroNIDAZOLE 1% GEL [Metrogel 1%] 1 applic TOPICAL BID 01/23/21 01/23/21 History predniSONE [Deltasone] 20 mg PO BID 01/23/21 01/23/21 History Allergies Allergy/AdvReac Type Severity Reaction Status Date / Time No Known Allergies Allergy Verified 01/23/21 08:22 Physical Exam Vitals: Vital Signs Temp Pulse Resp BP Pulse Ox 01/23/21 08:42 97.5 F L 53 L 18 159/85 93 L 01/23/21 06:10 97.5 F L 68 18 127/73 85 L Intake and Output 01/22/21 01/23/21 01/23/21 22:59 06:59 14:59 Other: Weight 72.575 kg Results CBC & Chem 7: 01/23/21 06:29 01/23/21 06:29 Labs: Abnormal Lab Results - Last 24 Hours (Table) 01/23/21 01/23/21 01/23/21 Range/Units 06:29 06:29 06:29 WBC 2.8 L (3.8-10.6) k/uL Hgb 12.9 L (13.0-17.5) gm/dL Plt Count 149 L (150-450) k/uL Lymphocytes # 0.2 L (1.0-4.8) k/uL D-Dimer 0.83 H (<0.60) mg/L FEU Sodium 133 L (137-145) mmol/L Carbon Dioxide 20 L (22-30) mmol/L BUN 27 H (9-20) mg/dL Glucose 154 H (74-99) mg/dL AST 122 H (17-59) U/L ALT 75 H (4-49) U/L Lactate Dehydrogenase 1082 H (313-618) U/L C-Reactive Protein 6.4 H (<1.0) mg/dL Coronavirus (PCR) (Not Detectd) 01/23/21 Range/Units 06:29 WBC (3.8-10.6) k/uL Hgb (13.0-17.5) gm/dL Plt Count (150-450) k/uL Lymphocytes # (1.0-4.8) k/uL D-Dimer (<0.60) mg/L FEU Sodium (137-145) mmol/L Carbon Dioxide (22-30) mmol/L BUN (9-20) mg/dL Glucose (74-99) mg/dL AST (17-59) U/L ALT (4-49) U/L Lactate Dehydrogenase (313-618) U/L C-Reactive Protein (<1.0) mg/dL Coronavirus (PCR) Detected A (Not Detectd) <Zora Edwards A - Last Filed: 01/23/21 15:34> History of Present Illness Patient seen and examined independently. Patient was also seen by Gaurav Silver NP and case was discussed. I am in agreement with subjective, physical exam, assessment and plan as written above and amended below. Declined treatment with Remdesivir. General: non toxic, no distress, appears at stated age Derm: warm, dry Head: atraumatic, normocephalic, symmetric Eyes: EOMI, no lid lag, anicteric sclera Mouth: no lip lesion, mucus membranes moist Neuro: CN II-XI grossly intact, no focal neuro deficits Psych: Alert, oriented, appropriate affect Rest of physical exam deferred due to COVID and completed by TRAVEL OCCUPATIONAL THERAPIST Physical Exam Osteopathic Statement: *. No significant issues noted on an osteopathic structural exam other than those noted in the History and Physical/Consult. Vitals: Vital Signs Temp Pulse Resp BP Pulse Ox 01/23/21 12:20 61 18 130/79 95 01/23/21 08:42 97.5 F L 53 L 18 159/85 93 L 01/23/21 06:10 97.5 F L 68 18 127/73 85 L Intake and Output 01/23/21 01/23/21 01/23/21 06:59 14:59 22:59 Other: Weight 72.575 kg Results CBC & Chem 7: 01/23/21 06:29 01/23/21 06:29 Labs: Abnormal Lab Results - Last 24 Hours (Table) 01/23/21 01/23/21 01/23/21 Range/Units 06:29 06:29 06:29 WBC 2.8 L (3.8-10.6) k/uL Hgb 12.9 L (13.0-17.5) gm/dL Plt Count 149 L (150-450) k/uL Lymphocytes # 0.2 L (1.0-4.8) k/uL D-Dimer 0.83 H (<0.60) mg/L FEU Sodium 133 L (137-145) mmol/L Carbon Dioxide 20 L (22-30) mmol/L BUN 27 H (9-20) mg/dL Glucose 154 H (74-99) mg/dL AST 122 H (17-59) U/L ALT 75 H (4-49) U/L Lactate Dehydrogenase 1082 H (313-618) U/L C-Reactive Protein 6.4 H (<1.0) mg/dL Coronavirus (PCR) (Not Detectd) 01/23/21 Range/Units 06:29 WBC (3.8-10.6) k/uL Hgb (13.0-17.5) gm/dL Plt Count (150-450) k/uL Lymphocytes # (1.0-4.8) k/uL D-Dimer (<0.60) mg/L FEU Sodium (137-145) mmol/L Carbon Dioxide (22-30) mmol/L BUN (9-20) mg/dL Glucose (74-99) mg/dL AST (17-59) U/L ALT (4-49) U/L Lactate Dehydrogenase (313-618) U/L C-Reactive Protein (<1.0) mg/dL Coronavirus (PCR) Detected A (Not Detectd)
[2021-01-23] MEDS ORDERED: ALBUTEROL HFA INHALER INHALATION PRN (09:39)
--- NOTE | 2021-01-23 10:06 | P.CNPUL ---
History of Present Illness Consult date: 01/23/21 Requesting physician: Gallo Duncan Reason for consult: dyspnea, hypoxemia, abnormal CXR/CT Chief complaint: Shortness of breath History of present illness: This is a 75-year-old male patient who follows with Dr. Mauricio Keith is his primary care provider. He has a history of coronary artery disease with previous coronary artery bypass grafting, mitral valve replacement, hypertension, hyperlipidemia, chronic obstructive pulmonary disease, former smoker, Crohn's disease. On January 17 the patient started having symptoms of fever cough congestion weakness and was tested for COVID-19 on January 18. He found out his results on January 21 and was told to stay home and rest unless his symptoms worsened. He was given doxycycline and prednisone 20 mg twice a day. His brought him into the emergency room here today as his oxygen levels were dropping at home. Chest x-rays revealing patchy bilateral interstitial pneumonia with underlying COPD. White count 2.8. Hemoglobin 12.9. Platelets 149. Lymphocytes 0.2. D-dimer 0.83. Sodium 133. Potassium 4.7. Creatinine 1.06. Glucose 154. AST 122. ALT 75. LDH 1082. C-reactive protein 6.4. Chronic virus by PCR positive. The patient is not vaccinated. He is seen today in the emergency room. Awake and alert in no acute distress. Sitting up on a stretcher. He is 85% O2 saturation on room air. 93% on 2 L per nasal c annula. Afebrile. Hemodynamically stable. He's been initiated on Lovenox and vitamin supplements. He will be started on Decadron. We discussed with him the possibility for Remdesivir which he is reluctant to receive. His who is sitting next to him is also having symptoms and she plans to go get tested today. Review of Systems REVIEW OF SYSTEMS: CONSTITUTIONAL: Generalized weakness, fatigue. Denies any recent significant weight loss or weight gain. EYES: Denies change in vision. EARS, NOSE, MOUTH, THROAT: Denies headaches, denies sore throat. CARDIOVASCULAR: Denies chest pain, palpitations or syncopal episodes. RESPIRATORY: Positive for shortness of breath, cough, congestion no hemoptysis. GASTROINTESTINAL: Denies change in appetite, denies abdominal pain GENITOURINARY: Denies hematuria, denies infections. MUSKULOSKELETAL: Denies pain, denies swelling. INTEGUMENTARY: Denies rash, denies eczema. NEUROLOGICAL: Denies recent memory loss, no recent seizure activity. PSYCHIATRIC: Denies anxiety, denies depression. HEMATOLOGIC/LYMPHATIC: Denies anemia, denies enlarged lymph nodes. Past Medical History Past Medical History: Hearing Disorder / Deafness, Hypertension, Prostate Disorder, Renal Disease Additional Past Medical History / Comment(s): Crohn's disease, nephrolithiasis, BPH, hypertension, COPD, tinnitus bilateral along with hearing impairment. History of Any Multi-Drug Resistant Organisms: None Reported Past Surgical History: Coronary Bypass/CABG, Hernia Repair, Tonsillectomy Additional Past Surgical History / Comment(s): lithotripsy, deviated septum, colonoscopies, umbilical and inguinal hernia repairs (laterality unknown). Past Anesthesia/Blood Transfusion Reactions: No Reported Reaction Past Psychological History: No Psychological Hx Reported Smoking Status: Never smoker Past Alcohol Use History: Rare Past Drug Use History: None Reported - Past Family History Father Family Medical History: Cancer, Congestive Heart Failure (CHF), Coronary Artery Disease (CAD) Additional Family Medical History / Comment(s): Father had PROSTATE cancer. Father had a CABG in his 70s Mother Family Medical History: CVA/TIA Additional Family Medical History / Comment(s): Mother of a CVA at the age of 53yrs. Medications and Allergies Home Medications Medication Instructions Recorded Confirmed Type Cyanocobalamin (Vitamin B-12) 4,000 mcg PO DAILY 06/01/17 01/23/21 History [Vitamin B-12] Multivitamin [Men's Multi-Vitamin] 1 tab PO DAILY 06/01/17 01/23/21 History Aspirin 81 mg PO DAILY #30 chew 06/18/17 01/23/21 Rx Atorvastatin [Lipitor] 40 mg PO DAILY #30 tab 06/18/17 01/23/21 Rx Metoprolol Tartrate [Lopressor] 25 mg PO BID #60 tab 06/18/17 01/23/21 Rx Sildenafil Citrate [Sildenafil] 20 mg PO DAILY PRN 06/11/18 01/23/21 History Ascorbic Acid [Vitamin C] 2,000 mg PO DAILY 01/23/21 01/23/21 History Aspirin 325 mg PO Q6H PRN 01/23/21 01/23/21 History Budesonide [Pulmicort] 0.5 mg INHALATION RT-BID 01/23/21 01/23/21 History Cholecalciferol [Vitamin D3 (25 50 mcg PO DAILY 01/23/21 01/23/21 History Mcg = 1000 Iu)] Doxycycline [Vibramycin] 100 mg PO BID 01/23/21 01/23/21 History Ivermectin [Stromectol] 18 mg PO DIRECTED 01/23/21 01/23/21 History Mesalamine [Pentasa] 1,000 mg PO TID 01/23/21 01/23/21 History Quercetin With Bromelain 1 tab PO HS 01/23/21 01/23/21 History Tamsulosin [Flomax] 0.4 mg PO BID 01/23/21 01/23/21 History Zinc Gummy 1 tab PO HS 01/23/21 01/23/21 History hydrALAZINE HCL [Apresoline] 25 mg PO BID 01/23/21 01/23/21 History predniSONE [Deltasone] 20 mg PO BID 01/23/21 01/23/21 History Allergies Allergy/AdvReac Type Severity Reaction Status Date / Time No Known Allergies Allergy Verified 01/23/21 08:22 Physical Exam Vitals: Vital Signs Temp Pulse Resp BP Pulse Ox 01/23/21 08:42 97.5 F L 53 L 18 159/85 93 L 01/23/21 06:10 97.5 F L 68 18 127/73 85 L Intake and Output 01/22/21 01/23/21 01/23/21 22:59 06:59 14:59 Other: Weight 72.575 kg GENERAL EXAM: Alert, 75-year-old gentleman, on 2 L/m per nasal cannula, comfortable in no apparent distress. HEAD: Normocephalic. EYES: Normal reaction of pupils, equal size. NOSE: Clear with pink turbinates. THROAT: No erythema or exudates. NECK: No masses, no JVD. CHEST: No chest wall deformity. LUNGS: Equal air entry with crackles in the bases. CVS: S1 and S2 normal with no audible murmur, regular rhythm. ABDOMEN: No hepatosplenomegaly, normal bowel sounds, no guarding or rigidity. SPINE: No scoliosis or deformity SKIN: No rashes CENTRAL NERVOUS SYSTEM: No focal deficits, tone is normal in all 4 extremities. EXTREMITIES: There is no peripheral edema. No clubbing, no cyanosis. Peripheral pulses are intact. Results - Laboratory Findings CBC and BMP: 01/23/21 06:29 12 06:29 PT/INR, D-dimer PT 10.3 sec (9.0-12.0) 01/23/21 06:29 INR 1.0 (<1.2) 01/23/21 06:29 D-Dimer 0.83 mg/L FEU (<0.60) H 01/23/21 06:29 Abnormal lab findings: Abnormal Labs 01/23/21 01/23/21 12 06:29 06:29 06:29 WBC 2.8 L Hgb 12.9 L Plt Count 149 L Lymphocytes # 0.2 L D-Dimer 0.83 H Sodium 133 L Carbon Dioxide 20 L BUN 27 H Glucose 154 H AST 122 H ALT 75 H Lactate Dehydrogenase 1082 H C-Reactive Protein 6.4 H Coronavirus (PCR) 01/23/21 06:29 WBC Hgb Plt Count Lymphocytes # D-Dimer Sodium Carbon Dioxide BUN Glucose AST ALT Lactate Dehydrogenase C-Reactive Protein Coronavirus (PCR) Detected A - Diagnostic Findings Chest x-ray: image reviewed Assessment and Plan Assessment: 1 Acute hypoxemic respiratory failure secondary to COVID-19 pneumonia. Not vaccinated. Symptoms started 01/17/2021. On 2 L nasal cannula. Reluctant to receive Remdesivir. His who was sitting next to him in the room is also having symptoms and plans to go get tested today. 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 Harmon The patient is declining Remdesivir Add Decadron 6 mg daily Continue Lovenox, vitamin supplements Titrate the FiO2 as tolerated Follow-up chest x-ray in a.m. Check a pro-calcitonin Follow-up inflammatory markers in a.m. We will continue to follow and make further recommendations based on his clinical status I, the cosigning physician, performed a history & physical examination of the patient. Lungs sounds with crackles in the bilateral bases. Maintaining good O2 saturations in the 90s on 2 L/m per nasal cannula. I discussed the assessment and plan of care with my nurse practitioner, Jory Camacho. I attest to the above consultation as dictated by her. Time with Patient: Greater than 30
[2021-01-23] MEDS: ALBUTEROL HFA INHALER INHALATION SCH ×3 (10:39→20:15)
[2021-01-23] MEDS: FLUTICASONE 110 MCG INHALER INHALATION SCH ×2 (11:39→20:16)
[2021-01-23] MEDS: BALSALAZIDE DISODIUM 750 MG CAPSULE PO SCH ×2 (19:26→21:45)
[2021-01-23] MEDS ORDERED: BUDESONIDE 0.5 MG/2 ML NEBU INHALATION SCH (20:00)
[2021-01-23] MEDS: TAMSULOSIN 0.4 MG CAP.ER.24H PO SCH (21:12)
[2021-01-23] MEDS: METOPROLOL TARTRATE 25 MG TAB PO SCH (21:12)
[2021-01-23] MEDS: hydrALAZINE HCL 25 MG TAB PO SCH (21:12)
[2021-01-24 06:20] LABS: HCT 38.6 % (39.0-53.0); HGB 12.3 gm/dL (13.0-17.5); MCH 28.5 pg (25.0-35.0); MCHC 31.9 g/dL (31.0-37.0); MCV 89.4 fL (80.0-100.0); Mean Platelet Volume 8.1; Platelet Count 162 k/uL (150-450); RBC 4.32 m/uL (4.30-5.90); RDW 14.4 % (11.5-15.5); WBC 5.9 k/uL (3.8-10.6)
[2021-01-24 06:43] LABS: ALT 62 U/L (4-49); AST 87 U/L (17-59); African American GFR (CKD) >90 (>60 ml/min/1.73 sqM); Albumin 3.2 g/dL (3.5-5.0); Alkaline Phosphatase 112 U/L (38-126); Anion Gap 7 mmol/L; Blood Urea Nitrogen 24 mg/dL (9-20); C Reactive Protein 4.4 mg/dL (<1.0); Calcium 8.5 mg/dL (8.4-10.2); Carbon Dioxide 24 mmol/L (22-30); Chloride 103 mmol/L (98-107); Glucose 158 mg/dL (74-99); LDH 881 U/L (313-618); Magnesium 2.1 mg/dL (1.6-2.3); Non-African American GFR(CKD) 86 (>60 ml/min/1.73 sqM); Potassium 4.1 mmol/L (3.5-5.1); Sodium 134 mmol/L (137-145); Total Bilirubin 0.3 mg/dL (0.2-1.3); Total Protein 6.3 g/dL (6.3-8.2)
--- NOTE | 2021-01-24 08:41 | XR ---
EXAMINATION TYPE: XR chest 1V portable DATE OF EXAM: 01/24/2021 COMPARISON: 01/23/2021 HISTORY: Cough TECHNIQUE: Single frontal view of the chest is obtained. FINDINGS: There is postoperative change. Heart size stable. Underlying COPD noted. Patchy bilateral infiltrates are seen greater peripherally and have progressed from prior exam. No pneumothorax or ple ural effusion. Atherosclerotic change aorta. IMPRESSION: Progressive changes in the lungs with increasing bilateral infiltrate correlate for pneu monia or developing ARDS.
[2021-01-24] MEDS: ALBUTEROL HFA INHALER INHALATION SCH ×4 (09:21→20:29)
[2021-01-24] MEDS: FLUTICASONE 110 MCG INHALER INHALATION SCH ×2 (09:21→20:29)
[2021-01-24] MEDS: BALSALAZIDE DISODIUM 750 MG CAPSULE PO SCH ×3 (09:50→21:23)
[2021-01-24] MEDS: ASCORBIC ACID 500 MG TAB PO SCH (09:50)
[2021-01-24] MEDS: TAMSULOSIN 0.4 MG CAP.ER.24H PO SCH ×2 (09:50→21:23)
[2021-01-24] MEDS: dexAMETHasone 2 MG TAB PO SCH (09:50)
[2021-01-24] MEDS: ATORVASTATIN 40 MG TAB PO SCH (09:50)
[2021-01-24] MEDS: CYANOCOBALAMIN 500 MCG TAB PO SCH (09:51)
[2021-01-24] MEDS: hydrALAZINE HCL 25 MG TAB PO SCH ×2 (09:51→21:23)
[2021-01-24] MEDS: ENOXAPARIN 40 MG/0.4 ML SYRINGE SQ SCH (09:51)
[2021-01-24] MEDS: METOPROLOL TARTRATE 25 MG TAB PO SCH ×2 (09:51→21:22)
[2021-01-24] MEDS: ZINC SULFATE 220 MG CAP PO SCH (09:51)
[2021-01-24] MEDS: ASPIRIN 81 MG PO SCH (09:51)
[2021-01-24] MEDS: CHOLECALCIFEROL 125 MCG (5000 IU) TABLET PO SCH (09:51)
--- NOTE | 2021-01-24 10:08 | P.PN ---
Subjective Progress Note Date: 01/24/21 Principal diagnosis: COVID-19 pneumonia This is a 75-year-old male patient who follows with Dr. Mauricio Keith is his primary care provider. He has a history of coronary artery disease with previous coronary artery bypass grafting, mitral valve replacement, hypertension, hyperlipidemia, chronic obstructive pulmonary disease, former smoker, Crohn's disease. On January 17 the patient started having symptoms of fever cough congestion weakness and was tested for COVID-19 on January 18. He found out his results on January 21 and was told to stay home and rest unless his symptoms worsened. He was given doxycycline and prednisone 20 mg twice a day. His brought him into the emergency room here today as his oxygen levels were dropping at home. Chest x-rays revealing patchy bilateral interstitial pneumonia with underlying COPD. White count 2.8. Hemoglobin 12.9. Platelets 149. Lymphocytes 0.2. D-dimer 0.83. Sodium 133. Potassium 4.7. Creatinine 1.06. Glucose 154. AST 122. ALT 75. LDH 1082. C-reactive protein 6.4. Chronic virus by PCR positive. The patient is not vaccinated. He is seen today in the emergency room. Awake and alert in no acute distress. Sitting up on a stretcher. He is 85% O2 saturation on room air. 93% on 2 L per nasal cannula. Afebrile. Hemodynamically stable. He's been initiated on Lovenox and vitamin supplements. He will be started on Decadron. We discussed with him the possibility for Remdesivir which he is reluctant to receive. His who is sitting next to him is also having symptoms and she plans to go get tested today. The patient is seen today 01/24/2021 in follow-up on the observation unit. He is currently sitting up in bed. Awake and alert in no acute distress. He is feeling quite a bit better. Feeling stronger today. He did decline Remdesivir. He has been maintained on Lovenox, Decadron, vitamin supplements. He is currently maintaining O2 saturation in the low 90s on 3 L/m per nasal cannula. He's been afebrile. Hemodynamically stable. Chest x-ray continues to show increased bilateral infiltrates. White count 5.9. Hemoglobin 12.3. D-dimer 0.93. Sodium 134. Potassium 4.1. Creatinine 0.86. Glucose 158. AST 87. ALT 62. LDH 81. C-reactive protein 4.4. Objective - Vital Signs Vital signs: Vital Signs Temp 96 F L 01/24/21 08:00 Pulse 57 L 01/24/21 08:00 Resp 16 01/24/21 08:00 BP 145/71 01/24/21 08:00 Pulse Ox 91 L 01/24/21 08:00 Intake & Output 01/23/21 01/24/21 01/24/21 18:59 06:59 18:59 Intake Total 600 118 Balance 600 118 Weight 72.575 kg Intake: Oral 600 118 Other: Voiding Method Indwelling Catheter - Exam GENERAL EXAM: Alert, 75-year-old gentleman, on 3 L/m per nasal cannula, comfortable in no apparent distress. HEAD: Normocephalic. EYES: Normal reaction of pupils, equal size. NOSE: Clear with pink turbinates. THROAT: No erythema or exudates. NECK: No masses, no JVD. CHEST: No chest wall deformity. LUNGS: Equal air entry with crackles in the bases. CVS: S1 and S2 normal with no audible murmur, regular rhythm. ABDOMEN: No hepatosplenomegaly, normal bowel sounds, no guarding or rigidity. SPINE: No scoliosis or deformity SKIN: No rashes CENTRAL NERVOUS SYSTEM: No focal deficits, tone is normal in all 4 extremities. EXTREMITIES: There is no peripheral edema. No clubbing, no cyanosis. Per ipheral pulses are intact. - Labs CBC & Chem 7: 01/24/21 05:41 01/24/21 05:41 Labs: Abnormal Lab Results - Last 24 Hours (Table) 01/23/21 01/24/21 01/24/21 Range/Units 06:29 05:41 05:41 Hgb 12.3 L (13.0-17.5) gm/dL Hct 38.6 L (39.0-53.0) % D-Dimer 0.93 H (<0.60) mg/L FEU Sodium (137-145) mmol/L BUN (9-20) mg/dL Glucose (74-99) mg/dL Ferritin 547.0 H (22.0-322.0) ng/mL AST (17-59) U/L ALT (4-49) U/L Lactate Dehydrogenase (313-618) U/L C-Reactive Protein (<1.0) mg/dL Albumin (3.5-5.0) g/dL 01/24/21 Range/Units 05:41 Hgb (13.0-17.5) gm/dL Hct (39.0-53.0) % D-Dimer (<0.60) mg/L FEU Sodium 134 L (137-145) mmol/L BUN 24 H (9-20) mg/dL Glucose 158 H (74-99) mg/dL Ferritin (22.0-322.0) ng/mL AST 87 H (17-59) U/L ALT 62 H (4-49) U/L Lactate Dehydrogenase 881 H (313-618) U/L C-Reactive Protein 4.4 H (<1.0) mg/dL Albumin 3.2 L (3.5-5.0) g/dL Assessment and Plan Assessment: 1 Acute hypoxemic respiratory failure secondary to COVID-19 pneumonia. Not vaccinated. Symptoms started 01/17/2021. On 3 L nasal cannula. Reluctant to receive Remdesivir. His who was sitting next to him in the room yesterday did test positive last night for CoVID as well. 2 Elevated inflammatory markers secondary to above 3 Elevated liver enzymes 4 Chronic obstructive pulmonary disease with diffuse central lobar emphysema 5 Former smoker 6 Coronary artery disease with previous coronary artery bypass grafting 2017 7 Mitral valve repair 8 Crohn's disease 9 Hypertension 10 History of systolic congestive heart failure Plan: The patient was seen and evaluated Chest x-ray continues with bilateral infiltrates The patient declined Remdesivir Continue Lovenox, Decadron, vitamin supplements Titrate the FiO2 as tolerated May qualify for home oxygen We will continue to follow I, the cosigning physician, performed a history & physical examination of the patient. Lungs sounds with crackles in the bilateral bases. Maintaining good O2 saturations in the 90s on 3 L/m per nasal cannula. I discussed the assessment and plan of care with my nurse practitioner, Jory Camacho. I attest to the above note as dictated by her.
--- NOTE | 2021-01-24 16:28 | P.PN ---
Progress Note - Text Progress Note Date: 01/24/21 Hospital course: 74-year-old patient who follows with Dr. Mauricio Keith. Tonic stable medical conditions include hypertension, Crohn's disease, nephrolithiasis, BPH, hypertension, tinnitus, COPD, CAD with bypass. EF of 20-25%. Presented with shortness of breath. Diagnosed with COVID 19 on January 18 symptoms starting 1 day before. He was found to be hypoxic at home. Upon arrival he was 85%. Patient declined treatment with Remdesivir. Patient had been taking ivermectin as outpatient. She requested this to be continued. This was declined by the admitting team as this was not approved treatment. Patient not vaccinated against COVID. She did with subcu Lovenox and dexamethasone. January 24: Patient feeling better. On 3 L nasal cannula. Oral intake fair. Up in a bed. Slight cough. Review of systems: Was done for constitutional, cardiovascular, GI, pulmonary. relevant finding as above On examination: VITAL SIGNS: [96, 57, 16, 145-71, 91% on 3 L] GENERAL APPEARANCE: Sitting up in the bed, awake, comfortable RESPIRATORY: Respiratory effort increased. PSYCHIATRY: Alert and oriented x3. Mood and affect normal. Rest of the exam per pulmonary and nursing INVESTIGATIONS, reviewed in the clinical context: White count 5.9 hemoglobin 12.3 platelets 162 d-dimer 0.93 potassium 4.1 creatinine 0.86 CRP 4.4 Admission labs: Pro-calcitonin 0.04 Coronavirus [PCR]: Detected D-dimer 0.83 EKG tracing personally reviewed by me-sinus bradycardia. Rate 55 Chest x-ray: biLateral infiltrates Assessment and plan: -Bilateral COVID 19 pneumonitis. Dexamethasone. Subcu Lovenox. Patient has declined Remdesivir. It may be noted that patient is taking ivermectin at home -Acute hypoxic respiratory failure from COVID 19 Currently on 3 L of nasal cannula. Try to keep the pulse ox above 92%. Incentive spirometry. -Essential hypertension Lopressor 25 mg twice a day, hydralazine 25 mg twice a day -Chronic Crohn's disease Pentasa thousand milligrams 3 times a day - nephrolithiasis Follow clinically -BPH Flomax 0.4 mg twice a day -COPD in a previous smoker Pulmicort -Chronic tinnitus with hearing impairment -CAD with bypass Aspirin, beta billy, Lipitor -Hyperlipidemia Lipitor 40 mg daily Continue current medication she plan. Patient to use incentive spirometry. Sitting up in a chair. On oxygen. Try to keep the pulse ox above 92%. Follow with pulmonary.
[2021-01-25] MEDS: CYANOCOBALAMIN 500 MCG TAB PO SCH (08:35)
[2021-01-25] MEDS: hydrALAZINE HCL 25 MG TAB PO SCH ×2 (08:35→21:50)
[2021-01-25] MEDS: TAMSULOSIN 0.4 MG CAP.ER.24H PO SCH ×2 (08:36→21:50)
[2021-01-25] MEDS: dexAMETHasone 2 MG TAB PO SCH (08:36)
[2021-01-25] MEDS: ASPIRIN 81 MG PO SCH (08:36)
[2021-01-25] MEDS: ZINC SULFATE 220 MG CAP PO SCH (08:36)
[2021-01-25] MEDS: ATORVASTATIN 40 MG TAB PO SCH (08:36)
[2021-01-25] MEDS: ASCORBIC ACID 500 MG TAB PO SCH (08:36)
[2021-01-25] MEDS: METOPROLOL TARTRATE 25 MG TAB PO SCH ×2 (08:36→21:50)
[2021-01-25] MEDS: CHOLECALCIFEROL 125 MCG (5000 IU) TABLET PO SCH (08:36)
[2021-01-25] MEDS: BALSALAZIDE DISODIUM 750 MG CAPSULE PO SCH ×3 (08:37→21:50)
[2021-01-25] MEDS: ENOXAPARIN 40 MG/0.4 ML SYRINGE SQ SCH (08:38)
[2021-01-25] MEDS: ALBUTEROL HFA INHALER INHALATION SCH ×4 (08:49→22:05)
[2021-01-25] MEDS: FLUTICASONE 110 MCG INHALER INHALATION SCH ×2 (08:49→22:05)
--- NOTE | 2021-01-25 13:55 | P.PN ---
Subjective Progress Note Date: 01/25/21 Principal diagnosis: Dyspnea, hypoxia, COVID-19 pneumonia This is a 75-year-old male patient who follows with Dr. Mauricio Keith is his primary care provider. He has a history of coronary artery disease with previous coronary artery bypass grafting, mitral valve replacement, hy pertension, hyperlipidemia, chronic obstructive pulmonary disease, former smoker, Crohn's disease. On January 17 the patient started having symptoms of fever cough congestion weakness and was tested for COVID-19 on January 18. He found out his results on January 21 and was told to stay home and rest unless his symptoms worsened. He was given doxycycline and prednisone 20 mg twice a day. His brought him into the emergency room here today as his oxygen levels were dropping at home. Chest x-rays revealing patchy bilateral interstitial pneumonia with underlying COPD. White count 2.8. Hemoglobin 12.9. Platelets 149. Lymphocytes 0.2. D-dimer 0.83. Sodium 133. Potassium 4.7. Creatinine 1.06. Glucose 154. AST 122. ALT 75. LDH 1082. C-reactive protein 6.4. Chronic virus by PCR positive. The patient is not vaccinated. He is seen today in the emergency room. Awake and alert in no acute distress. Sitting up on a stretcher. He is 85% O2 saturation on room air. 93% on 2 L per nasal cannula. Afebrile. Hemodynamically stable. He's been initiated on Lovenox and vitamin supplements. He will be started on Decadron. We discussed with him the possibility for Remdesivir which he is reluctant to receive. His who is sitting next to him is also having symptoms and she plans to go get tested today. The patient is seen today 01/24/2021 in follow-up on the observation unit. He is currently sitting up in bed. Awake and alert in no acute distress. He is feeling quite a bit better. Feeling stronger today. He did decline Remdesivir. He has been maintained on Lovenox, Decadron, vitamin supplements. He is currently maintaining O2 saturation in the low 90s on 3 L/m per nasal cannula. He's been afebrile. Hemodynamically stable. Chest x-ray continues to show increased bilateral infiltrates. White count 5.9. Hemoglobin 12.3. D-dimer 0.93. Sodium 134. Potassium 4.1. Creatinine 0.86. Glucose 158. AST 87. ALT 62. LDH 81. C-reactive protein 4.4. On 01/25/2021 patient seen in follow-up on medical surgical floor. He is awake and alert, in no acute distress, breathing comfortably, although still has a persistent cough, does have exertional dyspnea. He is currently on 4 L of oxygen and his pulse ox is borderline between 87-92%. No fever or chills, blood pressure is been stable, patient has been ambulate into the bathroom. Today's chest x-ray shows progressive changes in the lungs with increasing bilateral infiltrates. Patient remains on Decadron 6 mg daily, prophylactic Lovenox, he is on inhaled [place] dilators, he is on COVID-19 vitamins. His labs from yesterday showed a d-dimer of 0.93, electrolytes and renal profile were fairly unremarkable, his AST and ALT were improving and were down to 87 and 62 respectively, his inflammatory markers showed a trend for improvement with LDH at 881, and CRP of 4.4. Objective - Vital Signs Vital signs: Vital Signs Temp 98.4 F 01/25/21 10:54 Pulse 79 01/25/21 10:54 Resp 17 01/25/21 10:54 BP 110/51 01/25/21 10:54 Pulse Ox 92 L 01/25/21 10:54 Intake & Output 01/24/21 01/25/21 01/25/21 18:59 06:59 18:59 Intake Total 529 603 960 Balance 529 603 960 Intake: Oral 529 603 960 Other: Voiding Method Indwelling Catheter # Voids 3 # Bowel Movements 3 - Exam GENERAL EXAM: Alert, very pleasant, 75-year-old white male, on 4 L of oxygen, with pulse ox of 92%, has a persistent cough but comfortable in no apparent distress. HEAD: Normocephalic/atraumatic. EYES: Normal reaction of pupils, equal size. Conjunctiva pink, sclera white. NOSE: Clear with pink turbinates. THROAT: No erythema or exudates. NECK: No masses, no JVD, no thyroid enlargement, no adenopathy. CHEST: No chest wall deformity. Symmetrical expansion. LUNGS: Equal air entry with diffuse bilateral crackles CVS: Regular rate and rhythm, normal S1 and S2, no gallops, no murmurs, no rubs ABDOMEN: Soft, nontender. No hepatosplenomegaly, normal bowel sounds, no guarding or rigidity. EXTREMITIES: No clubbing, no edema, no cyanosis, 2+ pulses and upper and lower extremities. MUSCULOSKELETAL: Muscle strength and tone normal. SPINE: No scoliosis or deformity SKIN: No rashes CENTRAL NERVOUS SYSTEM: Alert and oriented -3. No focal deficits, tone is normal in all 4 extremities. PSYCHIATRIC: Alert and oriented -3. Appropriate affect. Intact judgment and insight. - Labs CBC & Chem 7: 01/24/21 05:41 01/24/21 05:41 Assessment and Plan Plan: Assessment: #1. Acute hypoxic respiratory failure secondary to COVID-19 pneumonia. Patient is not nonvaccinated adult, his symptoms started on 01/17/2021. Patient took ivermectin on an outpatient basis prescribed by his [place] doctor. Patient refused Remdesivir. Is currently on Decadron, prophylactic anticoagulation, and COVID-19 vitamins. #2. Elevated inflammatory markers related to the above, slightly improved #3. Elevated transaminases, improving #4. History of COPD with diffuse centrilobar emphysema #5. Former smoker #6. Coronary artery disease with previous coronary artery bypass grafting 4 in 2018 #7. Mitral valve repair #8. Crohn's disease #9. Hypertension #10. History of systolic CHF Plan: Patient is currently on 4 L of oxygen Has a mildly persistent cough, exertional dyspnea, but no acute distress Has been stable overnight Patient has declined Remdesivir He continues on Decadron, Lovenox and vitamin supplements Continue weaning FiO2 to keep O2 sat saturation is at or above 90% Increase activity as tolerated If remains stable through the day he may be considered for discharge home on home oxygen at 3-4 L possibly tomorrow I performed a history & physical examination of the patient and discussed their management with my nurse practitioner, Parvin Arango. I reviewed the nurse practitioner's note and agree with the documented findings and plan of care. Lung sounds are positive for diffuse crackles throughout the lung hernandez. The findings and the impression was discussed with the patient. I attest to the documentation by the nurse practitioner. Time with Patient: Less than 30
--- NOTE | 2021-01-25 16:19 | P.PN ---
Progress Note - Text Progress Note Date: 01/25/21 Hospital course: 74-year-old patient who follows with Dr. Mauricio Keith. Tonic stable medical conditions include hypertension, Crohn's disease, nephrolithiasis, BPH, hypertension, tinnitus, COPD, CAD with bypass. EF of 20-25%. Presented with shortness of breath. Diagnosed with COVID 19 on January 18 symptoms starting 1 day before. He was found to be hypoxic at home. Upon arrival he was 85%. Patient declined treatment with Remdesivir. Patient had been taking ivermectin as outpatient. She requested this to be continued. This was declined by the admitting team as this was not approved treatment. Patient not vaccinated against COVID. She did with subcu Lovenox and dexamethasone. January 24: Patient feeling better. On 3 L nasal cannula. Oral intake fair. Up in a bed. Slight cough. January 25: Sitting up in a recliner. Tired. Has some chest tightness. 92% on 4 L. Oral intake good. Review of systems: Was done for constitutional, cardiovascular, GI, pulmonary. relevant finding as above Active Medications Albuterol Sulfate (Albuterol Hfa Inhaler) 2 puff INHALATION RT-QID [facility] Last Admin: 01/25/21 13:00 Dose: 2 puff Documented by: Albuterol Sulfate (Albuterol Hfa Inhaler) 2 puff INHALATION RT-QID PRN PRN Reason: Shortness Of Breath Or Wheezing Ascorbic Acid (Ascorbic Acid 500 Mg Tab) 2,000 mg PO DAILY [facility] Last Admin: 01/25/21 08:36 Dose: 2,000 mg Documented by: Aspirin (Aspirin 81 Mg) 81 mg PO DAILY [facility] Last Admin: 01/25/21 08:36 Dose: 81 mg Documented by: Atorvastatin Calcium (Atorvastatin 40 Mg Tab) 40 mg PO DAILY [facility] Last Admin: 01/25/21 08:36 Dose: 40 mg Documented by: Balsalazide (Balsalazide Disodium 750 Mg Capsule) 2,250 mg PO TID [facility] Last Admin: 01/25/21 08:37 Dose: 2,250 mg Documented by: Cholecalciferol (Cholecalciferol 125 Mcg (5000 Iu) Tablet) 125 mcg PO DAILY [facility] Last Admin: 01/25/21 08:36 Dose: 125 mcg Documented by: Cyanocobalamin (Cyanocobalamin 500 Mcg Tab) 4,000 mcg PO DAILY [facility] Last Admin: 01/25/21 08:35 Dose: 4,000 mcg Documented by: Dexamethasone (Dexamethasone 2 Mg Tab) 6 mg PO DAILY [facility] Last Admin: 01/25/21 08:36 Dose: 6 mg Documented by: Enoxaparin Sodium (Enoxaparin 40 Mg/0.4 Ml Syringe) 40 mg SQ DAILY [facility] Last Admin: 01/25/21 08:38 Dose: 40 mg Documented by: Fluticasone Propionate (Fluticasone 110 Mcg Inhaler) 2 puff INHALATION RT-BID [facility] Last Admin: 01/25/21 08:49 Dose: 2 puff Documented by: Hydralazine HCl (Hydralazine Hcl 25 Mg Tab) 25 mg PO BID [facility] Last Admin: 01/25/21 08:35 Dose: 25 mg Documented by: Metoprolol Tartrate (Metoprolol Tartrate 25 Mg Tab) 25 mg PO BID [facility] Last Admin: 01/25/21 08:36 Dose: 25 mg Documented by: Naloxone HCl (Naloxone 0.4 Mg/Ml 1 Ml Vial) 0.2 mg IV Q2M PRN PRN Reason: Opioid Reversal Tamsulosin HCl (Tamsulosin 0.4 Mg Cap.Er.24h) 0.4 mg PO BID [facility] Last Admin: 01/25/21 08:36 Dose: 0.4 mg Documented by: Zinc Sulfate (Zinc Sulfate 220 Mg Cap) 220 mg PO DAILY [facility] Last Admin: 01/25/21 08:36 Dose: 220 mg Documented by: On examination: VITAL SIGNS: 98.4, 69, 16, 10 5 x 50, 92% on 4 L GENERAL APPEARANCE: Reclining in a recliner awake, RESPIRATORY: Respiratory effort increased. PSYCHIATRY: Alert and oriented x3. Mood and affect normal. Rest of the exam per pulmonary and nursing INVESTIGATIONS, reviewed in the clinical context: White count 5.9 hemoglobin 12.3 platelets 162 d-dimer 0.93 potassium 4.1 creatinine 0.86 CRP 4.4 Admission labs: Pro-calcitonin 0.04 Coronavirus [PCR]: Detected D-dimer 0.83 EKG tracing personally reviewed by me-sinus bradycardia. Rate 55 Chest x-ray: biLateral infiltrates Assessment and plan: -Bilateral COVID 19 pneumonitis: Slow to respond. Dexamethasone. Subcu Lovenox. declined Remdesivir. It may be noted that patient was taking ivermectin at home -Acute hypoxic respiratory failure from COVID 19: Some worsening Currently on 4 L of nasal cannula. Try to keep the pulse ox above 92%. Incentive spirometry. -Essential hypertension Lopressor 25 mg twice a day, hydralazine 25 mg twice a day -Chronic Crohn's disease Pentasa thousand milligrams 3 times a day - nephrolithiasis Follow clinically -BPH Flomax 0.4 mg twice a day -COPD in a previous smoker Pulmicort -Chronic tinnitus with hearing impairment -CAD with bypass Aspirin, beta billy, Lipitor -Hyperlipidemia Lipitor 40 mg daily 4 L nasal cannula. Dexamethasone. Other medications to continue. Discussed with patient.
[2021-01-26] MEDS ORDERED: HEPARIN SODIUM 1,000 UN/ML (10ML VL) IV STA (04:17)
[2021-01-26] MEDS ORDERED: HEPARIN SODIUM 1,000 UN/ML (10ML VL) IV PRN (04:17)
[2021-01-26] MEDS ORDERED: HEPARIN SOD,PORK IN 0.45% NACL 25,000 UNIT in 0.45% NACL 1 250ML.BAG IV SCH (04:30)
--- NOTE | 2021-01-26 04:49 | CT ---
EXAMINATION TYPE: CT angio chest DATE OF EXAM: 01/26/2021 COMPARISON: 06/01/2017 HISTORY: elevated d-dimer CT DLP: 341.1 mGycm Automated exposure control for dose reduction was used. CONTRAST: Performed with IV Contrast, patient injected with 100 mL of Isovue 370. There are 3-D post processed images. There is patchy groundglass interstitial infiltrate in both lungs. There is diffuse pulmonary emphyse ma. Heart is slightly enlarged. There is no pleural effusion. There is no suspicious pulmonary mass. There is some extensive reticular interstitial infiltrate in the mid and lower lung hernandez. There is no evidence of filling defect in the pulmonary arteries. There are multiple mediastinal lymp h nodes up to 1.5 cm. Thoracic aorta is intact. There is no aneurysm or dissection. Thoracic spine shows some osteopenia and biconcave loss of height. There is up to 20% anterior wedgin g. There are sternal wires. I see no evidence of a rib fracture. IMPRESSION: No evidence of pulmonary embolism. Cardiomegaly. Extensive pulmonary infiltrates as above consistent with combined with fibrosis and acute pneumonia. Emphysema. There is clearing of the pleural fluid compared to old exam. Pulmonary infiltrates increased compared to old exam. Mediastinal lymph nodes likely inflammatory and unchanged.
[2021-01-26 06:27] LABS: Basophils % (A) 0 %; Eosinophils % (A) 0 %; HCT 35.1 % (39.0-53.0); HGB 11.5 gm/dL (13.0-17.5); Lymphocytes # (A) 0.1 k/uL (1.0-4.8); Lymphocytes % (A) 1 %; MCH 29.1 pg (25.0-35.0); MCHC 32.7 g/dL (31.0-37.0); MCV 88.9 fL (80.0-100.0); Mean Platelet Volume 7.7; Monocytes # (A) 0.3 k/uL (0-1.0); Monocytes % (A) 3 %; Neutrophils # (A) 11.3 k/uL (1.3-7.7); Neutrophils % (A) 96 %; Platelet Count 183 k/uL (150-450); RBC 3.95 m/uL (4.30-5.90); RDW 14.5 % (11.5-15.5); WBC 11.8 k/uL (3.8-10.6)
[2021-01-26 06:55] LABS: Prothrombin Time 10.7 sec (9.0-12.0)
[2021-01-26 07:03] LABS: Partial Thromboplastin Time 19.9 sec (22.0-30.0)
[2021-01-26] MEDS: ALBUTEROL HFA INHALER INHALATION SCH ×4 (08:19→21:01)
[2021-01-26] MEDS: FLUTICASONE 110 MCG INHALER INHALATION SCH ×2 (08:19→21:01)
[2021-01-26] MEDS: METOPROLOL TARTRATE 25 MG TAB PO SCH ×2 (08:33→22:56)
[2021-01-26] MEDS: hydrALAZINE HCL 25 MG TAB PO SCH ×2 (08:33→22:56)
[2021-01-26] MEDS: CYANOCOBALAMIN 500 MCG TAB PO SCH (08:36)
[2021-01-26] MEDS: ASCORBIC ACID 500 MG TAB PO SCH (08:36)
[2021-01-26] MEDS: ENOXAPARIN 40 MG/0.4 ML SYRINGE SQ SCH (08:36)
[2021-01-26] MEDS: dexAMETHasone 2 MG TAB PO SCH (08:36)
[2021-01-26] MEDS: TAMSULOSIN 0.4 MG CAP.ER.24H PO SCH ×2 (08:36→22:56)
[2021-01-26] MEDS: CHOLECALCIFEROL 125 MCG (5000 IU) TABLET PO SCH (08:36)
[2021-01-26] MEDS: ATORVASTATIN 40 MG TAB PO SCH (08:36)
[2021-01-26] MEDS: ASPIRIN 81 MG PO SCH (08:36)
[2021-01-26] MEDS: ZINC SULFATE 220 MG CAP PO SCH (08:36)
--- NOTE | 2021-01-26 08:37 | US ---
EXAMINATION TYPE: US venous doppler duplex LE DATE OF EXAM: 01/26/2021 7:49 AM COMPARISON: NONE CLINICAL HISTORY: Elevated D-Dimer. SIDE PERFORMED: Bilateral TECHNIQUE: The lower extremity deep venous system is examined utilizing real time linear array sonog navi with graded compression, doppler sonography and color-flow sonography. VESSELS IMAGED: Common Femoral Vein Deep Femoral Vein Greater Saphenous Vein * Femoral Vein Popliteal Vein Small Saphenous Vein * Proximal Calf Veins (* superficial vessels) There is normal flow, compressibility, vascular waveforms. Right Leg: Negative for DVT Left Leg: Negative for DVT IMPRESSION: No evident deep venous thrombosis from the level of the knees centrally within the lower extremities
[2021-01-26] MEDS: BALSALAZIDE DISODIUM 750 MG CAPSULE PO SCH ×3 (08:40→22:56)
[2021-01-26] MEDS ORDERED: ALBUTEROL HFA INHALER INHALATION PRN (17:49)
--- NOTE | 2021-01-26 17:50 | P.PN ---
Progress Note - Text Progress Note Date: 01/26/21 Hospital course: 74-year-old patient who follows with Dr. Mauricio Keith. Tonic stable medical conditions include hypertension, Crohn's disease, nephrolithiasis, BPH, hypertension, tinnitus, COPD, CAD with bypass. EF of 20-25%. Presented with shortness of breath. Diagnosed with COVID 19 on January 18 symptoms starting 1 day before. He was found to be hypoxic at home. Upon arrival he was 85%. Patient declined treatment with Remdesivir. Patient had been taking ivermectin as outpatient. She requested this to be continued. This was declined by the admitting team as this was not approved treatment. Patient not vaccinated against COVID. She did with subcu Lovenox and dexamethasone. January 24: Patient feeling better. On 3 L nasal cannula. Oral intake fair. Up in a bed. Slight cough. January 25: Sitting up in a recliner. Tired. Has some chest tightness. 92% on 4 L. Oral intake good. January 26: Bit more short of breath. Oxygen requirement: Up to 15 L. Had low-grade fever. Eating about 50-75%. Tired. Up in a chair. Review of systems: Was done for constitutional, cardiovascular, GI, pulmonary. relevant finding as above Active Medications Albuterol Sulfate (Albuterol Hfa Inhaler) 2 puff INHALATION RT-QID [facility] Last Admin: 01/26/21 15:17 Dose: 2 puff Documented by: Albuterol Sulfate (Albuterol Hfa Inhaler) 2 puff INHALATION RT-QID PRN PRN Reason: Shortness Of Breath Or Wheezing Ascorbic Acid (Ascorbic Acid 500 Mg Tab) 2,000 mg PO DAILY [facility] Last Admin: 01/26/21 08:36 Dose: 2,000 mg Documented by: Aspirin (Aspirin 81 Mg) 81 mg PO DAILY [facility] Last Admin: 01/26/21 08:36 Dose: 81 mg Documented by: Atorvastatin Calcium (Atorvastatin 40 Mg Tab) 40 mg PO DAILY [facility] Last Admin: 01/26/21 08:36 Dose: 40 mg Documented by: Balsalazide (Balsalazide Disodium 750 Mg Capsule) 2,250 mg PO TID [facility] Last Admin: 01/26/21 15:49 Dose: 2,250 mg Documented by: Cholecalciferol (Cholecalciferol 125 Mcg (5000 Iu) Tablet) 125 mcg PO DAILY [facility] Last Admin: 01/26/21 08:36 Dose: 125 mcg Documented by: Cyanocobalamin (Cyanocobalamin 500 Mcg Tab) 4,000 mcg PO DAILY [facility] Last Admin: 01/26/21 08:36 Dose: 4,000 mcg Documented by: Dexamethasone (Dexamethasone 2 Mg Tab) 6 mg PO DAILY [facility] Last Admin: 01/26/21 08:36 Dose: 6 mg Documented by: Enoxaparin Sodium (Enoxaparin 40 Mg/0.4 Ml Syringe) 40 mg SQ DAILY [facility] Last Admin: 01/26/21 08:36 Dose: 40 mg Documented by: Fluticasone Propionate (Fluticasone 110 Mcg Inhaler) 2 puff INHALATION RT-BID [facility] Last Admin: 01/26/21 08:19 Dose: 2 puff Documented by: Hydralazine HCl (Hydralazine Hcl 25 Mg Tab) 25 mg PO BID [facility] Last Admin: 01/26/21 08:33 Dose: Not Given Documented by: Metoprolol Tartrate (Metoprolol Tartrate 25 Mg Tab) 25 mg PO BID [facility] Last Admin: 01/26/21 08:33 Dose: Not Given Documented by: Naloxone HCl (Naloxone 0.4 Mg/Ml 1 Ml Vial) 0.2 mg IV Q2M PRN PRN Reason: Opioid Reversal Tamsulosin HCl (Tamsulosin 0.4 Mg Cap.Er.24h) 0.4 mg PO BID [facility] Last Admin: 01/26/21 08:36 Dose: 0.4 mg Documented by: Zinc Sulfate (Zinc Sulfate 220 Mg Cap) 220 mg PO DAILY [facility] Last Admin: 01/26/21 08:36 Dose: 220 mg Documented by: On examination: VITAL SIGNS: 100.4, 86, 18, 96/46, 90% on 15 L GENERAL APPEARANCE: Up in a chair, awake, tired, RESPIRATORY: Respiratory effort increased. PSYCHIATRY: Alert and oriented x3. Mood and affect normal. Rest of the exam per pulmonary and nursing INVESTIGATIONS, reviewed in the clinical context: January 26: White count 11.8 hemoglobin 11.5 d-dimer 12.6 CRP 7.3 White count 5.9 hemoglobin 12.3 platelets 162 d-dimer 0.93 potassium 4.1 creatinine 0.86 CRP 4.4 Admission labs: Pro-calcitonin 0.04 Coronavirus [PCR]: Detected D-dimer 0.83 EKG tracing personally reviewed by me-sinus bradycardia. Rate 55 Chest x-ray: biLateral infiltrates Assessment and plan: -Bilateral COVID 19 pneumonitis: Worsening Dexamethasone. Subcu Lovenox. (declined Remdesivir. patient was taking ivermectin at home) -Acute hypoxic respiratory failure from COVID 19: worsening Currently on 15 L of nasal cannula. -Essential hypertension Lopressor 25 mg twice a day, hydralazine 25 mg twice a day -Chronic Crohn's disease Pentasa thousand milligrams 3 times a day - nephrolithiasis Follow clinically -BPH Flomax 0.4 mg twice a day -COPD in a previous smoker Pulmicort -Chronic tinnitus with hearing impairment -CAD with bypass Aspirin, beta billy, Lipitor -Hyperlipidemia Lipitor 40 mg daily 15 L nasal cannula. Dexamethasone. Continue other medications. Follow with pulmonary.
--- NOTE | 2021-01-26 18:10 | P.PN ---
Subjective Progress Note Date: 01/26/21 Principal diagnosis: Acute hypoxic respiratory failure secondary to COVID-19 pneumonia This is a 75-year-old male patient who follows with Dr. Mauricio Keith is his primary care provider. He has a history of coronary artery disease with previous coronary artery bypass grafting, mitral valve replacement, hypertension, hyperlipidemia, chronic obstructive pulmonary disease, former smoker, Crohn's disease. On January 17 the patient started having symptoms of fever cough congestion weakness and was tested for COVID-19 on January 18. He found out his results on January 21 and was told to stay home and rest unless his symptoms worsened. He was given doxycycline and prednisone 20 mg twice a day. His brought him into the emergency room here today as his oxygen levels were dropping at home. Chest x-rays revealing patchy bilateral interstitial pneumonia with underlying COPD. White count 2.8. Hemoglobin 12.9. Platelets 149. Lymphocytes 0.2. D-dimer 0.83. Sodium 133. Potassium 4.7. Creatinine 1.06. Glucose 154. AST 122. ALT 75. LDH 1082. C-reactive protein 6.4. Chronic virus by PCR positive. The patient is not vaccinated. He is seen today in the emergency room. Awake and alert in no acute distress. Sitting up on a stretcher. He is 85% O2 saturation on room air. 93% on 2 L per nasal cannula. Afebrile. Hemodynamically stable. He's been initiated on Lovenox and vitamin supplements. He will be started on Decadron. We discussed with him the possibility for Remdesivir which he is reluctant to receive. His who is sitting next to him is also having symptoms and she plans to go get tested today. The patient is seen today 01/24/2021 in follow-up on the observation unit. He is currently sitting up in bed. Awake and alert in no acute distress. He is feeling quite a bit better. Feeling stronger today. He did decline Remdesivir. He has been maintained on Lovenox, Decadron, vitamin supplements. He is currently maintaining O2 saturation in the low 90s on 3 L/m per nasal cannula. He's been afebrile. Hemodynamically stable. Chest x-ray continues to show increased bilateral infiltrates. White count 5.9. Hemoglobin 12.3. D-dimer 0.93. Sodium 134. Potassium 4.1. Creatinine 0.86. Glucose 158. AST 87. ALT 62. LDH 81. C-reactive protein 4.4. On 01/25/2021 patient seen in follow-up on medical surgical floor. He is awake and alert, in no acute distress, breathing comfortably, although still has a persistent cough, does have exertional dyspnea. He is currently on 4 L of oxygen and his pulse ox is borderline between 87-92%. No fever or chills, blood pressure is been stable, patient has been ambulate into the bathroom. Today's chest x-ray shows progressive changes in the lungs with increasing bilateral i nfiltrates. Patient remains on Decadron 6 mg daily, prophylactic Lovenox, he is on inhaled [place] dilators, he is on COVID-19 vitamins. His labs from yesterday showed a d-dimer of 0.93, electrolytes and renal profile were fairly unremarkable, his AST and ALT were improving and were down to 87 and 62 respectively, his inflammatory markers showed a trend for improvement with LDH at 881, and CRP of 4.4. Reevaluated today on 01/26/2021, patient remains on the regular medical floor, his condition got a bit worse yesterday, he is now on 15 L nasal cannula high flow, and his O2 saturation is ranging between 90 up to 96%. However the patient does not seem to be in any distress, he is afebrile with a temp of 97 9 he had a T-max of 100.4 last night. Vital signs are stable. Blood pressure 113/43. Previous count is 11.8 hemoglobin is 11.5, d-dimer went up to 12.66, however workup for pulmonary embolism and venous Doppler came back negative yesterday last night. Patient is on the COVID-19 cocktail, he refused taking remdesivir when he qualified, he is on Lovenox at 40 mg subcu daily, he is also on vitamin D, vitamin C, zinc, and he is on Decadron 6 mg by mouth daily. Objective - Vital Signs Vital signs: Vital Signs Temp 97.9 F 01/26/21 16:43 Pulse 68 01/26/21 16:43 Resp 17 01/26/21 16:43 BP 113/43 01/26/21 16:43 Pulse Ox 96 01/26/21 16:43 Intake & Output 12/12/0601/26/21 01/26/21 18:59 06:59 18:59 Intake Total 960 960 Balance 960 960 Intake: Oral 960 960 Other: Voiding Method Indwelling Catheter # Voids 3 3 - Exam Physical Exam: Revealed a 75-year-old white male in no distress however he is on 15 L high flow nasal cannula. Head: Atraumatic normocephalic. HEENT:[Neck is supple.] [No neck masses.] [No thyromegaly.] [No JVD.] Chest: Crackles at the bases bilaterally. No rhonchi and no wheezes Cardiac Exam: [Normal S1 and S2, no S3 gallop, no murmur.] Abdomen: [Soft, nontender, no megaly, no rebound, no guarding, normal bowel sounds.] Extremities: [No clubbing, no edema, no cyanosis.] Neurological Exam: [No focal neurologic deficit.] Psychiatric: Normal mood affect and normal mental status examination. Skin: No rashes. - Labs CBC & Chem 7: 01/26/21 06:13 01/24/21 05:41 Labs: Abnormal Lab Results - Last 24 Hours (Table) 01/26/21 01/26/21 01/26/21 Range/Units 01:40 06:13 06:13 WBC (3.8-10.6) k/uL RBC (4.30-5.90) m/uL Hgb (13.0-17.5) gm/dL Hct (39.0-53.0) % Neutrophils # (1.3-7.7) k/uL Lymphocytes # (1.0-4.8) k/uL APTT 19.9 L (22.0-30.0) sec D-Dimer 4.31 H 12.66 H (<0.60) mg/L FEU C-Reactive Protein 7.3 H (<1.0) mg/dL 01/26/21 Range/Units 06:13 WBC 11.8 H (3.8-10.6) k/uL RBC 3.95 L (4.30-5.90) m/uL Hgb 11.5 L (13.0-17.5) gm/dL Hct 35.1 L (39.0-53.0) % Neutrophils # 11.3 H (1.3-7.7) k/uL Lymphocytes # 0.1 L (1.0-4.8) k/uL APTT (22.0-30.0) sec D-Dimer (<0.60) mg/L FEU C-Reactive Protein (<1.0) mg/dL Assessment and Plan Assessment: #1. Acute hypoxic respiratory failure secondary to COVID-19 pneumonia. Patient is not nonvaccinated adult, his symptoms started on 01/17/2021. Patient took ivermectin on an outpatient basis prescribed by his [place] doctor. Patient refused Remdesivir. Is currently on Decadron, prophylactic anticoagulation, and COVID-19 vitamins. #2. Elevated inflammatory markers related to the above, slightly improved #3. Elevated transaminases, improving #4. History of COPD with diffuse centrilobar emphysema #5. Former smoker #6. Coronary artery disease with previous coronary artery bypass grafting 4 in 2018 #7. Mitral valve repair #8. Crohn's disease #9. Hypertension #10. History of systolic CHF Recommendation: Continue oxygen and titrate accordingly he is now on 15 L high flow cannula Continue Decadron. Patient declined remdesivir Continue vitamin supplements Increase activity Not ready for any discharge planning at this point. We'll continue to follow. Prognosis is relatively guarded Time with Patient: Less than 30
[2021-01-27] MEDS: ASCORBIC ACID 500 MG TAB PO SCH (07:54)
[2021-01-27] MEDS: ENOXAPARIN 40 MG/0.4 ML SYRINGE SQ SCH (07:55)
[2021-01-27] MEDS: CYANOCOBALAMIN 500 MCG TAB PO SCH (07:55)
[2021-01-27] MEDS: dexAMETHasone 2 MG TAB PO SCH (07:55)
[2021-01-27] MEDS: hydrALAZINE HCL 25 MG TAB PO SCH ×2 (07:55→20:12)
[2021-01-27] MEDS: TAMSULOSIN 0.4 MG CAP.ER.24H PO SCH ×2 (07:55→20:12)
[2021-01-27] MEDS: ATORVASTATIN 40 MG TAB PO SCH (07:55)
[2021-01-27] MEDS: CHOLECALCIFEROL 125 MCG (5000 IU) TABLET PO SCH (07:55)
[2021-01-27] MEDS: BALSALAZIDE DISODIUM 750 MG CAPSULE PO SCH ×3 (07:55→20:12)
[2021-01-27] MEDS: ZINC SULFATE 220 MG CAP PO SCH (07:55)
[2021-01-27] MEDS: METOPROLOL TARTRATE 25 MG TAB PO SCH ×2 (07:55→20:12)
[2021-01-27] MEDS: ASPIRIN 81 MG PO SCH (07:55)
[2021-01-27] MEDS: FLUTICASONE 110 MCG INHALER INHALATION SCH ×2 (08:08→19:41)
[2021-01-27] MEDS: ALBUTEROL HFA INHALER INHALATION SCH ×4 (08:08→19:41)
[2021-01-27 11:14] LABS: Acanthocytes 2+; Basophils # (A) 0 X 10*3/uL (0.00-0.10); Basophils % (A) 0 %; Eosinophils # (A) 0 X 10*3/uL (0.04-0.35); Eosinophils % (A) 0 %; HCT 33.9 % (39.6-50.0); HGB 10.5 g/dL (13.0-17.0); Lymphocytes % (A) 0.8 %; MCH 27.3 pg (27.0-32.0); MCV 88.3 fL (80.0-97.0); Mean Platelet Volume 10.4 fL (9.5-12.2); Monocytes # (A) 0.37 X 10*3/uL (0.20-1.00); Monocytes % (A) 3.1 %; Neutrophils # (A) 11.33 X 10*3/uL (1.80-7.70); Neutrophils % (A) 95.5 %; Platelet Count 182 X 10*3/uL (140-440); RBC 3.84 X 10*6/uL (4.40-5.60); RDW 14.6 % (11.5-14.5); WBC 11.87 X 10*3/uL (4.50-10.00)
--- NOTE | 2021-01-27 12:51 | P.PN ---
Subjective Progress Note Date: 01/27/21 Principal diagnosis: Dyspnea, hypoxia, COVID-19 pneumonia This is a 75-year-old male patient who follows with Dr. Mauricio Keith is his primary care provider. He has a history of coronary artery disease with previous coronary artery bypass grafting, mitral valve replacement, hy pertension, hyperlipidemia, chronic obstructive pulmonary disease, former smoker, Crohn's disease. On January 17 the patient started having symptoms of fever cough congestion weakness and was tested for COVID-19 on January 18. He found out his results on January 21 and was told to stay home and rest unless his symptoms worsened. He was given doxycycline and prednisone 20 mg twice a day. His brought him into the emergency room here today as his oxygen levels were dropping at home. Chest x-rays revealing patchy bilateral interstitial pneumonia with underlying COPD. White count 2.8. Hemoglobin 12.9. Platelets 149. Lymphocytes 0.2. D-dimer 0.83. Sodium 133. Potassium 4.7. Creatinine 1.06. Glucose 154. AST 122. ALT 75. LDH 1082. C-reactive protein 6.4. Chronic virus by PCR positive. The patient is not vaccinated. He is seen today in the emergency room. Awake and alert in no acute distress. Sitting up on a stretcher. He is 85% O2 saturation on room air. 93% on 2 L per nasal cannula. Afebrile. Hemodynamically stable. He's been initiated on Lovenox and vitamin supplements. He will be started on Decadron. We discussed with him the possibility for Remdesivir which he is reluctant to receive. His who is sitting next to him is also having symptoms and she plans to go get tested today. The patient is seen today 01/24/2021 in follow-up on the observation unit. He is currently sitting up in bed. Awake and alert in no acute distress. He is feeling quite a bit better. Feeling stronger today. He did decline Remdesivir. He has been maintained on Lovenox, Decadron, vitamin supplements. He is currently maintaining O2 saturation in the low 90s on 3 L/m per nasal cannula. He's been afebrile. Hemodynamically stable. Chest x-ray continues to show increased bilateral infiltrates. White count 5.9. Hemoglobin 12.3. D-dimer 0.93. Sodium 134. Potassium 4.1. Creatinine 0.86. Glucose 158. AST 87. ALT 62. LDH 81. C-reactive protein 4.4. On 01/25/2021 patient seen in follow-up on medical surgical floor. He is awake and alert, in no acute distress, breathing comfortably, although still has a persistent cough, does have exertional dyspnea. He is currently on 4 L of oxygen and his pulse ox is borderline between 87-92%. No fever or chills, blood pressure is been stable, patient has been ambulate into the bathroom. Today's chest x-ray shows progressive changes in the lungs with increasing bilateral infiltrates. Patient remains on Decadron 6 mg daily, prophylactic Lovenox, he is on inhaled [place] dilators, he is on COVID-19 vitamins. His labs from yesterday showed a d-dimer of 0.93, electrolytes and renal profile were fairly unremarkable, his AST and ALT were improving and were down to 87 and 62 respectively, his inflammatory markers showed a trend for improvement with LDH at 881, and CRP of 4.4. On 01/27/2021 patient seen in follow-up on medical surgical floor. Patient's hypoxia has significantly progressed in the last 24-48 hours, and he is currently up to 15 L per high flow nasal cannula and nonrebreather mask, and his pulse ox is 94-95%, he is also more dyspneic on today's exam, no fever, vital signs have been stable other than progressive hypoxia. CT angiogram of the chest showed no evidence of pulmonary embolism, and extensive pulmonary infiltrates, underlying emphysema. Lower extremity Dopplers were negative for DVT. Today's labs have been reviewed, his white blood cell count is 11.8, hemoglobin is 10.5, his d-dimer on yesterday's labs was increased to 12.66 without evidence of PE or DVT, his LDH is still pending for today, and his CRP was 7.3. Pro-A Level Was Negative. he had previously refused Remdesivir, we discussed starting Baricitinib for him and patient is agreeable to try it. Objective - Vital Signs Vital signs: Vital Signs Temp 99.6 F 01/27/21 09:55 Pulse 68 01/27/21 09:55 Resp 22 01/27/21 09:55 BP 130/60 01/27/21 09:55 Pulse Ox 97 01/27/21 09:55 Intake & Output 01/26/21 01/27/21 01/27/21 18:59 06:59 18:59 Other: # Voids 3 2 - Exam GENERAL EXAM: Alert, very pleasant, 75-year-old white male, on 15 L per high flow nasal cannula and nonrebreather mask with a pulse ox of 97% pulse ox of 95% HEAD: Normocephalic/atraumatic. EYES: Normal reaction of pupils, equal size. Conjunctiva pink, sclera white. NOSE: Clear with pink turbinates. THROAT: No erythema or exudates. NECK: No masses, no JVD, no thyroid enlargement, no adenopathy. CHEST: No chest wall deformity. Symmetrical expansion. LUNGS: Equal air entry with diffuse bilateral crackles CVS: Regular rate and rhythm, normal S1 and S2, no gallops, no murmurs, no rubs ABDOMEN: Soft, nontender. No hepatosplenomegaly, normal bowel sounds, no guarding or rigidity. EXTREMITIES: No clubbing, no edema, no cyanosis, 2+ pulses and upper and lower extremities. MUSCULOSKELETAL: Muscle strength and tone normal. SPINE: No scoliosis or deformity SKIN: No rashes CENTRAL NERVOUS SYSTEM: Alert and oriented -3. No focal deficits, tone is normal in all 4 extremities. PSYCHIATRIC: Alert and oriented -3. Appropriate affect. Intact judgment and insight. - Labs CBC & Chem 7: 01/27/21 05:47 01/24/21 05:41 Labs: Abnormal Lab Results - Last 24 Hours (Table) 01/27/21 Range/Units 05:47 WBC 11.87 H (4.50-10.00) X 10*3/uL RBC 3.84 L (4.40-5.60) X 10*6/uL Hgb 10.5 L (13.0-17.0) g/dL Hct 33.9 L (39.6-50.0) % MCHC 31.0 L (32.0-37.0) g/dL RDW 14.6 H (11.5-14.5) % Immature Gran # 0.07 H (0.00-0.04) X 10*3/uL Neutrophils # 11.33 H (1.80-7.70) X 10*3/uL Lymphocytes # 0.10 L (0.90-5.00) X 10*3/uL Eosinophils # 0 L (0.04-0.35) X 10*3/uL Assessment and Plan Plan: Assessment: #1. Acute hypoxic respiratory failure secondary to COVID-19 pneumonia. Patient is not nonvaccinated adult, his symptoms started on 01/17/2021. Patient took ivermectin on an outpatient basis prescribed by his [place] doctor. Patient r efused Remdesivir. Is currently on Decadron, prophylactic anticoagulation, and COVID-19 vitamins. Patient was started on Baricitinib today on 01/27/2021 in view of progressive hypoxia and patient is currently on 15 L per high flow nasal cannula and nonrebreather mask at 100% #2. Elevated inflammatory markers related to the above, slightly improved #3. Elevated transaminases, improving #4. History of COPD with diffuse centrilobar emphysema #5. Former smoker #6. Coronary artery disease with previous coronary artery bypass grafting 4 in 2018 #7. Mitral valve repair #8. Crohn's disease #9. Hypertension #10. History of systolic CHF #11. Elevated d-dimer, and without CT evidence of pulmonary embolism, or DVT on bilateral lower extremity Dopplers Plan: Patient will be started on Baricitinib today Currently on 15 l/min and 100 % NRB, he is agreeable to try it Continue prophylactic Lovenox and multivitamins Overall prognosis is extremely guarded We'll continue to follow his clinical course I performed a history & physical examination of the patient and discussed their management with my nurse practitioner, Parvin Arango. I reviewed the nurse practitioner's note and agree with the documented findings and plan of care. Lung sounds are positive for diffuse crackles throughout the lung hernandez. The findings and the impression was discussed with the patient. I attest to the documentation by the nurse practitioner. Time with Patient: Less than 30
--- NOTE | 2021-01-27 13:08 | P.PN ---
Progress Note - Text Progress Note Date: 01/27/21 Hospital course: 74-year-old patient who follows with Dr. Mauricio Keith. Tonic stable medical conditions include hypertension, Crohn's disease, nephrolithiasis, BPH, hypertension, tinnitus, COPD, CAD with bypass. EF of 20-25%. Presented with shortness of breath. Diagnosed with COVID 19 on January 18 symptoms starting 1 day before. He was found to be hypoxic at home. Upon arrival he was 85%. Patient declined treatment with Remdesivir. Patient had been taking ivermectin as outpatient. She requested this to be continued. This was declined by the admitting team as this was not approved treatment. Patient not vaccinated against COVID. She did with subcu Lovenox and dexamethasone. January 24: Patient feeling better. On 3 L nasal cannula. Oral intake fair. Up in a bed. Slight cough. January 25: Sitting up in a recliner. Tired. Has some chest tightness. 92% on 4 L. Oral intake good. January 26: Bit more short of breath. Oxygen requirement: Up to 15 L. Had low-grade fever. Eating about 50-75%. Tired. Up in a chair. January 27: Short of breath. Sitting at the edge of the bed. 15 L nasal cannula. Decreased appetite. Review of systems: Was done for constitutional, cardiovascular, GI, pulmonary. relevant finding as above Active Medications Albuterol Sulfate (Albuterol Hfa Inhaler) 2 puff INHALATION RT-QID [facility] Last Admin: 01/27/21 11:58 Dose: 2 puff Documented by: Albuterol Sulfate (Albuterol Hfa Inhaler) 4 puff INHALATION RT-QID PRN PRN Reason: Shortness Of Breath Or Wheezing Ascorbic Acid (Ascorbic Acid 500 Mg Tab) 2,000 mg PO DAILY [facility] Last Admin: 01/27/21 07:54 Dose: 2,000 mg Documented by: Aspirin (Aspirin 81 Mg) 81 mg PO DAILY [facility] Last Admin: 01/27/21 07:55 Dose: 81 mg Documented by: Atorvastatin Calcium (Atorvastatin 40 Mg Tab) 40 mg PO DAILY [facility] Last Admin: 01/27/21 07:55 Dose: 40 mg Documented by: Balsalazide (Balsalazide Disodium 750 Mg Capsule) 2,250 mg PO TID [facility] Last Admin: 01/27/21 07:55 Dose: 2,250 mg Documented by: Baricitinib (Baricitinib 2 Mg Tablet) 4 mg PO DAILY@1300 [facility] Stop: 02/09/21 13:01 Cholecalciferol (Cholecalciferol 125 Mcg (5000 Iu) Tablet) 125 mcg PO DAILY [facility] Last Admin: 01/27/21 07:55 Dose: 125 mcg Documented by: Cyanocobalamin (Cyanocobalamin 500 Mcg Tab) 4,000 mcg PO DAILY [facility] Last Admin: 01/27/21 07:55 Dose: 4,000 mcg Documented by: Dexamethasone (Dexamethasone 2 Mg Tab) 6 mg PO DAILY [facility] Last Admin: 01/27/21 07:55 Dose: 6 mg Documented by: Enoxaparin Sodium (Enoxaparin 40 Mg/0.4 Ml Syringe) 40 mg SQ DAILY [facility] Last Admin: 01/27/21 07:55 Dose: 40 mg Documented by: Fluticasone Propionate (Fluticasone 110 Mcg Inhaler) 2 puff INHALATION RT-BID [facility] Last Admin: 01/27/21 08:08 Dose: 2 puff Documented by: Hydralazine HCl (Hydralazine Hcl 25 Mg Tab) 25 mg PO BID [facility] Last Admin: 01/27/21 07:55 Dose: 25 mg Documented by: Metoprolol Tartrate (Metoprolol Tartrate 25 Mg Tab) 25 mg PO BID [facility] Last Admin: 01/27/21 07:55 Dose: 25 mg Documented by: Naloxone HCl (Naloxone 0.4 Mg/Ml 1 Ml Vial) 0.2 mg IV Q2M PRN PRN Reason: Opioid Reversal Tamsulosin HCl (Tamsulosin 0.4 Mg Cap.Er.24h) 0.4 mg PO BID [facility] Last Admin: 01/27/21 07:55 Dose: 0.4 mg Documented by: Zinc Sulfate (Zinc Sulfate 220 Mg Cap) 220 mg PO DAILY [facility] Last Admin: 01/27/21 07:55 Dose: 220 mg Documented by: On examination: VITAL SIGNS: 99.6, 68, 22, 1:, 97% on 15 L/nonrebreather GENERAL APPEARANCE: Sitting of the edge of the bed awake, tired, RESPIRATORY: Respiratory effort increased. PSYCHIATRY: Alert and oriented x3. Mood and affect normal. Rest of the exam per pulmonary and nursing INVESTIGATIONS, reviewed in the clinical context: January 27: WBC 11.8 hemoglobin 10.5 January 26: White count 11.8 hemoglobin 11.5 d-dimer 12.6 CRP 7.3 White count 5.9 hemoglobin 12.3 platelets 162 d-dimer 0.93 potassium 4.1 creati nine 0.86 CRP 4.4 Admission labs: Pro-calcitonin 0.04 Coronavirus [PCR]: Detected D-dimer 0.83 EKG tracing personally reviewed by me-sinus bradycardia. Rate 55 Chest x-ray: biLateral infiltrates Assessment and plan: -Bilateral COVID 19 pneumonitis: Slow to respond Dexamethasone. Subcu Lovenox. (declined Remdesivir. patient was taking ivermectin at home) -Acute hypoxic respiratory failure from COVID 19: Slow to respond Currently on 15 L of nasal cannula. -Essential hypertension Lopressor 25 mg twice a day, hydralazine 25 mg twice a day -Chronic Crohn's disease Pentasa 1000 milligrams 3 times a day - nephrolithiasis Follow clinically -BPH Flomax 0.4 mg twice a day -COPD in a previous smoker Pulmicort -Chronic tinnitus with hearing impairment -CAD with bypass Aspirin, beta billy, Lipitor -Hyperlipidemia Lipitor 40 mg daily 15 L nasal cannula. Dexamethasone. Continue other medications. Discussed with patient. Encourage oral intake.
[2021-01-27] MEDS: BARICITINIB 2 MG TABLET PO SCH (14:07)
[2021-01-28 07:39] LABS: Basophils % (A) 0 %; Eosinophils % (A) 0 %; HGB 11.4 gm/dL (13.0-17.5); Hypochromasia Slight; Lymphocytes # (A) 0.2 k/uL (1.0-4.8); Lymphocytes % (A) 2 %; MCH 28.6 pg (25.0-35.0); MCHC 31.6 g/dL (31.0-37.0); MCV 90.7 fL (80.0-100.0); Mean Platelet Volume 7.7; Monocytes # (A) 0.4 k/uL (0-1.0); Monocytes % (A) 4 %; Neutrophils # (A) 9.5 k/uL (1.3-7.7); Neutrophils % (A) 93 %; Platelet Count 154 k/uL (150-450); RBC 3.97 m/uL (4.30-5.90); RDW 14.7 % (11.5-15.5); WBC 10.2 k/uL (3.8-10.6)
[2021-01-28 07:45] LABS: ALT 60 U/L (4-49); AST 173 U/L (17-59); African American GFR (CKD) 63 (>60 ml/min/1.73 sqM); Alkaline Phosphatase 147 U/L (38-126); Anion Gap 8 mmol/L; Blood Urea Nitrogen 43 mg/dL (9-20); Calcium 8.7 mg/dL (8.4-10.2); Carbon Dioxide 28 mmol/L (22-30); Chloride 100 mmol/L (98-107); Glucose 108 mg/dL (74-99); Non-African American GFR(CKD) 55 (>60 ml/min/1.73 sqM); Potassium 4.9 mmol/L (3.5-5.1); Sodium 136 mmol/L (137-145)
[2021-01-28] MEDS: ALBUTEROL HFA INHALER INHALATION SCH ×4 (08:34→19:42)
[2021-01-28] MEDS: FLUTICASONE 110 MCG INHALER INHALATION SCH ×2 (08:34→19:37)
[2021-01-28] MEDS: CYANOCOBALAMIN 500 MCG TAB PO SCH (09:57)
[2021-01-28] MEDS: METOPROLOL TARTRATE 25 MG TAB PO SCH ×2 (09:58→20:41)
[2021-01-28] MEDS: ATORVASTATIN 40 MG TAB PO SCH (09:58)
[2021-01-28] MEDS: CHOLECALCIFEROL 125 MCG (5000 IU) TABLET PO SCH (09:58)
[2021-01-28] MEDS: ZINC SULFATE 220 MG CAP PO SCH (09:58)
[2021-01-28] MEDS: BALSALAZIDE DISODIUM 750 MG CAPSULE PO SCH ×3 (09:58→20:41)
[2021-01-28] MEDS: TAMSULOSIN 0.4 MG CAP.ER.24H PO SCH ×2 (09:58→20:41)
[2021-01-28] MEDS: ASPIRIN 81 MG PO SCH (09:58)
[2021-01-28] MEDS: dexAMETHasone 2 MG TAB PO SCH (09:58)
[2021-01-28] MEDS: ENOXAPARIN 40 MG/0.4 ML SYRINGE SQ SCH (09:58)
[2021-01-28] MEDS: hydrALAZINE HCL 25 MG TAB PO SCH ×2 (09:58→20:41)
[2021-01-28] MEDS: ASCORBIC ACID 500 MG TAB PO SCH (10:24)
[2021-01-28] MEDS: BARICITINIB 2 MG TABLET PO SCH ×2 (13:54→13:57)
--- NOTE | 2021-01-28 14:45 | P.PN ---
Progress Note - Text Progress Note Date: 01/28/21 Hospital course: 74-year-old patient who follows with Dr. Mauricio Keith. Tonic stable medical conditions include hypertension, Crohn's disease, nephrolithiasis, BPH, hypertension, tinnitus, COPD, CAD with bypass. EF of 20-25%. Presented with shortness of breath. Diagnosed with COVID 19 on January 18 symptoms starting 1 day before. He was found to be hypoxic at home. Upon arrival he was 85%. Patient declined treatment with Remdesivir. Patient had been taking ivermectin as outpatient. She requested this to be continued. This was declined by the admitting team as this was not approved treatment. Patient not vaccinated against COVID. She did with subcu Lovenox and dexamethasone. January 24: Patient feeling better. On 3 L nasal cannula. Oral intake fair. Up in a bed. Slight cough. January 25: Sitting up in a recliner. Tired. Has some chest tightness. 92% on 4 L. Oral intake good. January 26: Bit more short of breath. Oxygen requirement: Up to 15 L. Had low-grade fever. Eating about 50-75%. Tired. Up in a chair. January 27: Short of breath. Sitting at the edge of the bed. 15 L nasal cannula. Decreased appetite. January 28: Laying in bed. Tired. Short of breath. On 15 L nonrebreather. Oral intake fair. Started on Baricitinib by pulmonary Review of systems: Was done for constitutional, cardiovascular, GI, pulmonary. relevant finding as above Active Medications Albuterol Sulfate (Albuterol Hfa Inhaler) 2 puff INHALATION RT-QID [facility] Last Admin: 01/28/21 11:53 Dose: 2 puff Documented by: Albuterol Sulfate (Albuterol Hfa Inhaler) 4 puff INHALATION RT-QID PRN PRN Reason: Shortness Of Breath Or Wheezing Ascorbic Acid (Ascorbic Acid 500 Mg Tab) 2,000 mg PO DAILY [facility] Last Admin: 01/28/21 10:24 Dose: Not Given Documented by: Aspirin (Aspirin 81 Mg) 81 mg PO DAILY [facility] Last Admin: 01/28/21 09:58 Dose: 81 mg Documented by: Atorvastatin Calcium (Atorvastatin 40 Mg Tab) 40 mg PO DAILY [facility] Last Admin: 01/28/21 09:58 Dose: 40 mg Documented by: Balsalazide (Balsalazide Disodium 750 Mg Capsule) 2,250 mg PO TID [facility] Last Admin: 01/28/21 09:58 Dose: 2,250 mg Documented by: Baricitinib (Baricitinib 2 Mg Tablet) 2 mg PO DAILY@1400 [facility] Stop: 02/09/21 14:01 Last Admin: 01/28/21 13:57 Dose: 2 mg Documented by: Cholecalciferol (Cholecalciferol 125 Mcg (5000 Iu) Tablet) 125 mcg PO DAILY [facility] Last Admin: 01/28/21 09:58 Dose: 125 mcg Documented by: Cyanocobalamin (Cyanocobalamin 500 Mcg Tab) 4,000 mcg PO DAILY [facility] Last Admin: 01/28/21 09:57 Dose: 4,000 mcg Documented by: Dexamethasone (Dexamethasone 2 Mg Tab) 6 mg PO DAILY [facility] Last Admin: 01/28/21 09:58 Dose: 6 mg Documented by: Enoxaparin Sodium (Enoxaparin 40 Mg/0.4 Ml Syringe) 40 mg SQ DAILY [facility] Last Admin: 01/28/21 09:58 Dose: 40 mg Documented by: Fluticasone Propionate (Fluticasone 110 Mcg Inhaler) 2 puff INHALATION RT-BID [facility] Last Admin: 01/28/21 08:34 Dose: 2 puff Documented by: Hydralazine HCl (Hydralazine Hcl 25 Mg Tab) 25 mg PO BID [facility] Last Admin: 01/28/21 09:58 Dose: 25 mg Documented by: Metoprolol Tartrate (Metoprolol Tartrate 25 Mg Tab) 25 mg PO BID [facility] Last Admin: 01/28/21 09:58 Dose: 25 mg Documented by: Naloxone HCl (Naloxone 0.4 Mg/Ml 1 Ml Vial) 0.2 mg IV Q2M PRN PRN Reason: Opioid Reversal Tamsulosin HCl (Tamsulosin 0.4 Mg Cap.Er.24h) 0.4 mg PO BID [facility] Last Admin: 01/28/21 09:58 Dose: 0.4 mg Documented by: Zinc Sulfate (Zinc Sulfate 220 Mg Cap) 220 mg PO DAILY [facility] Last Admin: 01/28/21 09:58 Dose: 220 mg Documented by: On examination: VITAL SIGNS: 97.5, 63, 15, 99/59, 85% on 15 L GENERAL APPEARANCE: Laying in bed awake, tired, RESPIRATORY: Respiratory effort increased. PSYCHIATRY: Alert and oriented x3. Mood and affect normal. NEUROLOGICAL: Cranial nerves grossly intact. Moving all 4 limbs Rest of the exam per pulmonary and nursing INVESTIGATIONS, reviewed in the clinical context: January 28: WBC 10.2 hemoglobin 11.4 platelets 154 d-dimer greater than 34 sodium 136 potassium 4.9. 43 creatinine 1.29 January 27: WBC 11.8 hemoglobin 10.5 January 26: White count 11.8 hemoglobin 11.5 d-dimer 12.6 CRP 7.3 White count 5.9 hemoglobin 12.3 platelets 162 d-dimer 0.93 potassium 4.1 creatinine 0.86 CRP 4.4 Admission labs: Pro-calcitonin 0.04 Coronavirus [PCR]: Detected D-dimer 0.83 EKG tracing personally reviewed by me-sinus bradycardia. Rate 55 Chest x-ray: biLateral infiltrates Assessment and plan: -Bilateral COVID 19 pneumonitis: Worsening Dexamethasone. Subcu Lovenox. (declined Remdesivir. patient was taking ivermectin at home). Baricitinib started January 28 -Acute hypoxic respiratory failure from COVID 19: Not improving Currently on 15 L of nasal cannula. -Essential hypertension Lopressor 25 mg twice a day, hydralazine 25 mg twice a day -Chronic Crohn's disease Pentasa 1000 milligrams 3 times a day - nephrolithiasis Follow clinically -BPH Flomax 0.4 mg twice a day -COPD in a previous smoker Pulmicort -Chronic tinnitus with hearing impairment -CAD with bypass Aspirin, beta billy, Lipitor -Hyperlipidemia Lipitor 40 mg daily -Worsening hepatitis hold Lipitor. Follow LFT 15 L nasal cannula. Dexamethasone. DC Lipitor. Follow LFT. Started on Baricitinib. Follow with pulmonary.
--- NOTE | 2021-01-28 18:21 | P.PN ---
Subjective Progress Note Date: 01/28/21 Principal diagnosis: Dyspnea, hypoxia, COVID-19 pneumonia This is a 75-year-old male patient who follows with Dr. Mauricio Keith is his primary care provider. He has a history of coronary artery disease with previous coronary artery bypass grafting, mitral valve replacement, hy pertension, hyperlipidemia, chronic obstructive pulmonary disease, former smoker, Crohn's disease. On January 17 the patient started having symptoms of fever cough congestion weakness and was tested for COVID-19 on January 18. He found out his results on January 21 and was told to stay home and rest unless his symptoms worsened. He was given doxycycline and prednisone 20 mg twice a day. His brought him into the emergency room here today as his oxygen levels were dropping at home. Chest x-rays revealing patchy bilateral interstitial pneumonia with underlying COPD. White count 2.8. Hemoglobin 12.9. Platelets 149. Lymphocytes 0.2. D-dimer 0.83. Sodium 133. Potassium 4.7. Creatinine 1.06. Glucose 154. AST 122. ALT 75. LDH 1082. C-reactive protein 6.4. Chronic virus by PCR positive. The patient is not vaccinated. He is seen today in the emergency room. Awake and alert in no acute distress. Sitting up on a stretcher. He is 85% O2 saturation on room air. 93% on 2 L per nasal cannula. Afebrile. Hemodynamically stable. He's been initiated on Lovenox and vitamin supplements. He will be started on Decadron. We discussed with him the possibility for Remdesivir which he is reluctant to receive. His who is sitting next to him is also having symptoms and she plans to go get tested today. The patient is seen today 01/24/2021 in follow-up on the observation unit. He is currently sitting up in bed. Awake and alert in no acute distress. He is feeling quite a bit better. Feeling stronger today. He did decline Remdesivir. He has been maintained on Lovenox, Decadron, vitamin supplements. He is currently maintaining O2 saturation in the low 90s on 3 L/m per nasal cannula. He's been afebrile. Hemodynamically stable. Chest x-ray continues to show increased bilateral infiltrates. White count 5.9. Hemoglobin 12.3. D-dimer 0.93. Sodium 134. Potassium 4.1. Creatinine 0.86. Glucose 158. AST 87. ALT 62. LDH 81. C-reactive protein 4.4. On 01/25/2021 patient seen in follow-up on medical surgical floor. He is awake and alert, in no acute distress, breathing comfortably, although still has a persistent cough, does have exertional dyspnea. He is currently on 4 L of oxygen and his pulse ox is borderline between 87-92%. No fever or chills, blood pressure is been stable, patient has been ambulate into the bathroom. Today's chest x-ray shows progressive changes in the lungs with increasing bilateral infiltrates. Patient remains on Decadron 6 mg daily, prophylactic Lovenox, he is on inhaled Vandemere dilators, he is on COVID-19 vitamins. His labs from yesterday showed a d-dimer of 0.93, electrolytes and renal profile were fairly unremarkable, his AST and ALT were improving and were down to 87 and 62 respectively, his inflammatory markers showed a trend for improvement with LDH at 881, and CRP of 4.4. On 01/27/2021 patient seen in follow-up on medical surgical floor. Patient's hypoxia has significantly progressed in the last 24-48 hours, and he is currently up to 15 L per high flow nasal cannula and nonrebreather mask, and his pulse ox is 94-95%, he is also more dyspneic on today's exam, no fever, vital signs have been stable other than progressive hypoxia. CT angiogram of the chest showed no evidence of pulmonary embolism, and extensive pulmonary infiltrates, underlying emphysema. Lower extremity Dopplers were negative for DVT. Today's labs have been reviewed, his white blood cell count is 11.8, hemoglobin is 10.5, his d-dimer on yesterday's labs was increased to 12.66 without evidence of PE or DVT, his LDH is still pending for today, and his CRP was 7.3. Pro-A Level Was Negative. he had previously refused Remdesivir, we discussed starting Baricitinib for him and patient is agreeable to try it. On 01/28/2021 patient is seen in follow-up on medical surgical floor. His oxygen demand has remained relatively stable over the last 24 hours, she remains on the same 15 L per high flow nasal cannula and nonrebreather mask at 100%, his pulse ox is ranging between 85-93%, does not appear to be in any acute distress. Looks a bit tired, denies any chest discomfort, his been afebrile, mild cough, no phlegm production. Patient continues on Baricitinib, he is on Decadron, he is on prophylactic Lovenox, today's d-dimer was greater than 34.1. His CT angiogram of the chest and lower extremity Dopplers were negative for PE and DVT. His white blood cell count is 10.2, hemoglobin is 11.4, sodium is 136, dress electrolytes were unremarkable, his renal function took little bump and BUN was up to 43 and creatinine was 1.29 on today's labs. His inflammatory markers are still pending for today, CRP has increased to 17.9. Tolerating ortal intake, no nausea or vomiting, his appetite is good. Objective - Vital Signs Vital signs: Vital Signs Temp 97.5 F L 01/28/21 14:31 Pulse 63 01/28/21 14:31 Resp 15 01/28/21 14:31 BP 99/59 01/28/21 14:31 Pulse Ox 85 L 01/28/21 14:31 Intake & Output 01/27/21 01/28/21 01/28/21 18:59 06:59 18:59 Output Total 450 Balance -450 Output: Urine 450 Other: Voiding Method Indwelling Catheter # Voids 2 - Exam GENERAL EXAM: Alert, very pleasant, 75-year-old white male, on 15 L per high flow nasal cannula and nonrebreather mask with a pulse ox of 97% pulse ox of 95% HEAD: Normocephalic/atraumatic. EYES: Normal reaction of pupils, equal size. Conjunctiva pink, sclera white. NOSE: Clear with pink turbinates. THROAT: No erythema or exudates. NECK: No masses, no JVD, no thyroid enlargement, no adenopathy. CHEST: No chest wall deformity. Symmetrical expansion. LUNGS: Equal air entry with diffuse bilateral crackles CVS: Regular rate and rhythm, normal S1 and S2, no gallops, no murmurs, no rubs ABDOMEN: Soft, nontender. No hepatosplenomegaly, normal bowel sounds, no guarding or rigidity. EXTREMITIES: No clubbing, no edema, no cyanosis, 2+ pulses and upper and lower extremities. MUSCULOSKELETAL: Muscle strength and tone normal. SPINE: No scoliosis or deformity SKIN: No rashes CENTRAL NERVOUS SYSTEM: Alert and oriented -3. No focal deficits, tone is normal in all 4 extremities. PSYCHIATRIC: Alert and oriented -3. Appropriate affect. Intact judgment and insight. - Labs CBC & Chem 7: 01/28/21 06:26 01/28/21 06:26 Labs: Abnormal Lab Results - Last 24 Hours (Table) 01/28/21 01/28/21 01/28/21 Range/Units 06:26 06:26 06:26 RBC 3.97 L (4.30-5.90) m/uL Hgb 11.4 L (13.0-17.5) gm/dL Hct 36.0 L (39.0-53.0) % Neutrophils # 9.5 H (1.3-7.7) k/uL Lymphocytes # 0.2 L (1.0-4.8) k/uL D-Dimer >34.10 H (<0.60) mg/L FEU Sodium (137-145) mmol/L BUN (9-20) mg/dL Creatinine (0.66-1.25) mg/dL Glucose (74-99) mg/dL Total Bilirubin (0.2-1.3) mg/dL AST (17-59) U/L ALT (4-49) U/L Alkaline Phosphatase (38-126) U/L C-Reactive Protein 17.9 H (<1.0) mg/dL Total Protein (6.3-8.2) g/dL Albumin (3.5-5.0) g/dL 01/28/21 Range/Units 06:26 RBC (4.30-5.90) m/uL Hgb (13.0-17.5) gm/dL Hct (39.0-53.0) % Neutrophils # (1.3-7.7) k/uL Lymphocytes # (1.0-4.8) k/uL D-Dimer (<0.60) mg/L FEU Sodium 136 L (137-145) mmol/L BUN 43 H (9-20) mg/dL Creatinine 1.29 H (0.66-1.25) mg/dL Glucose 108 H (74-99) mg/dL Total Bilirubin 2.0 H (0.2-1.3) mg/dL AST 173 H (17-59) U/L ALT 60 H (4-49) U/L Alkaline Phosphatase 147 H (38-126) U/L C-Reactive Protein (<1.0) mg/dL Total Protein 6.0 L (6.3-8.2) g/dL Albumin 3.0 L (3.5-5.0) g/dL Assessment and Plan Plan: Assessment: #1. Acute hypoxic respiratory failure secondary to COVID-19 pneumonia. Patient is not nonvaccinated adult, his symptoms started on 01/17/2021. Patient took ivermectin on an outpatient basis prescribed by his [place] doctor. Patient refused Remdesivir. Is currently on Decadron, prophylactic anticoagulation, and COVID-19 vitamins. Patient was started on Baricitinib today on 01/27/2021 in view of progressive hypoxia and patient is currently on 15 L per high flow nasal cannula and nonrebreather mask at 100% #2. Elevated inflammatory markers related to the above, slightly improved #3. Elevated transaminases, improving #4. History of COPD with diffuse centrilobar emphysema #5. Former smoker #6. Coronary artery disease with previous coronary artery bypass grafting 4 in 2018 #7. Mitral valve repair #8. Crohn's disease #9. Hypertension #10. History of systolic CHF #11. Elevated d-dimer, and without CT evidence of pulmonary embolism, or DVT on bilateral lower extremity Dopplers #12. Acute kidney injury possibly related to COVID-19 ATN Plan: Continue Baricitinib, today is day 2 of treatment Continues to be on the same amount of oxygen, with high flow nasal cannula at 15 L and nonrebreather mask Does not appear to be in acute distress, but is looking tired on today's exam If develops worsening dyspnea may try BiPAP support Continue with Decadron, prophylactic Lovenox His prognosis is extremely guarded We'll continue to follow his clinical course and make further recommendations I performed a history & physical examination of the patient and discussed their management with my nurse practitioner, Parvin Arango. I reviewed the nurse practitioner's note and agree with the documented findings and plan of care. Lung sounds are positive for diffuse crackles throughout the lung hernandez. The findings and the impression was discussed with the patient. I attest to the doc umentation by the nurse practitioner. Time with Patient: Less than 30
[2021-01-29 03:37] LABS: Glucose,Whole Blood 132 mg/dL (75-99)
--- NOTE | 2021-01-29 03:46 | XR ---
EXAMINATION TYPE: XR chest 1V portable DATE OF EXAM: 01/29/2021 COMPARISON: 01/24/2021 HISTORY: Pneumonia TECHNIQUE: Single view FINDINGS: There is coarse interstitial infiltrate throughout the lungs. Heart size is fairly normal. There are sternal wires. There is no definite pleural effusion. Mediastinum is normal. IMPRESSION: Coarse diffuse pulmonary interstitial pneumonia not significantly different than recent e xam.
--- NOTE | 2021-01-29 03:49 | P.EN ---
A- team: Indication: Shortness of breath, hypoxia Arrived on Scene to find: Patient in mild respiratory distress on nonrebreather mask Vital signs reviewed: At time of evaluation, BP 110/55, SpO2 77%, pulse 60 Patient seen and examined at bedside. The patient reports that he had sat up to use the urinal when he started to feel short of breath. He denies any additional complaints. He denies chest discomfort, nausea, vomiting, diaphoresis. General: [non toxic], [mild respiratory distress], [appears at stated age] Derm: [warm], [dry] Head: [atraumatic], [normocephalic], [symmetric] Eyes: [EOMI], [no lid lag], [anicteric sclera] Mouth: [no lip lesion], [mucus membranes moist] Cardiovascular: [S1S2 reg], [no murmur], [positive posterior tibial pulse bilateral], Lungs: [Diffuse rhonchi and rales, no wheezing] , [no accessory muscle use] Abdominal: [soft], [ nontender to palpation], [no guarding], [no appreciable organomegaly] Ext: [no gross muscle atrophy], [trace bilateral lower extremity pitting edema], [no contractures] Neuro: [ CN II-XI grossly intact], [no focal neuro deficits] Psych: [Alert], [oriented], [appropriate affect] Assessment: Acute hypoxic respiratory failure with COVID-19 pneumonia Laboratory evaluation reviewed with d-dimer greater than 34 Plan: BiPAP initiated with subsequent SpO2 95% Chest CTA from 01/26 negative for PE Consider repeat imaging due to significantly elevated d-dimer, with CTA if the patient's kidney function improved Notified: Primary team notified by RN A Total of 35 minutes of critical care time was spent on the complex care of this patient.
[2021-01-29 07:33] LABS: ALT 73 U/L (4-49); AST 174 U/L (17-59); African American GFR (CKD) 49 (>60 ml/min/1.73 sqM); Albumin 2.5 g/dL (3.5-5.0); Albumin/Globulin Ratio 0.9; Alkaline Phosphatase 146 U/L (38-126); Anion Gap 4 mmol/L; Blood Urea Nitrogen 67 mg/dL (9-20); Calcium 8.2 mg/dL (8.4-10.2); Carbon Dioxide 28 mmol/L (22-30); Chloride 102 mmol/L (98-107); Globulin 2.9 g/dL; Glucose 111 mg/dL (74-99); Non-African American GFR(CKD) 42 (>60 ml/min/1.73 sqM); Potassium 4.4 mmol/L (3.5-5.1); Sodium 134 mmol/L (137-145); Total Bilirubin 1.1 mg/dL (0.2-1.3); Total Protein 5.4 g/dL (6.3-8.2)
[2021-01-29] MEDS: ENOXAPARIN 40 MG/0.4 ML SYRINGE SQ SCH (08:45)
[2021-01-29] MEDS: ASPIRIN 81 MG PO SCH (08:45)
[2021-01-29] MEDS: METOPROLOL TARTRATE 25 MG TAB PO SCH ×2 (08:45→21:17)
[2021-01-29] MEDS: ZINC SULFATE 220 MG CAP PO SCH (08:45)
[2021-01-29] MEDS: dexAMETHasone 2 MG TAB PO SCH (08:45)
[2021-01-29] MEDS: ASCORBIC ACID 500 MG TAB PO SCH (08:45)
[2021-01-29] MEDS: hydrALAZINE HCL 25 MG TAB PO SCH ×2 (08:46→21:17)
[2021-01-29] MEDS: CHOLECALCIFEROL 125 MCG (5000 IU) TABLET PO SCH (08:46)
[2021-01-29] MEDS: CYANOCOBALAMIN 500 MCG TAB PO SCH (08:46)
[2021-01-29] MEDS: TAMSULOSIN 0.4 MG CAP.ER.24H PO SCH ×2 (08:46→21:17)
[2021-01-29] MEDS: BALSALAZIDE DISODIUM 750 MG CAPSULE PO SCH ×3 (08:47→21:17)
[2021-01-29] MEDS: ALBUTEROL HFA INHALER INHALATION SCH ×4 (09:21→21:49)
[2021-01-29] MEDS: FLUTICASONE 110 MCG INHALER INHALATION SCH ×2 (09:22→21:49)
[2021-01-29] MEDS: LACTATED RINGERS 1,000 ML IV SCH ×2 (11:43→17:48)
--- NOTE | 2021-01-29 12:50 | P.PN ---
Subjective Progress Note Date: 01/29/21 Principal diagnosis: Dyspnea, hypoxia, COVID-19 pneumonia This is a 75-year-old male patient who follows with Dr. Mauricio Keith is his primary care provider. He has a history of coronary artery disease with previous coronary artery bypass grafting, mitral valve replacement, hy pertension, hyperlipidemia, chronic obstructive pulmonary disease, former smoker, Crohn's disease. On January 17 the patient started having symptoms of fever cough congestion weakness and was tested for COVID-19 on January 18. He found out his results on January 21 and was told to stay home and rest unless his symptoms worsened. He was given doxycycline and prednisone 20 mg twice a day. His brought him into the emergency room here today as his oxygen levels were dropping at home. Chest x-rays revealing patchy bilateral interstitial pneumonia with underlying COPD. White count 2.8. Hemoglobin 12.9. Platelets 149. Lymphocytes 0.2. D-dimer 0.83. Sodium 133. Potassium 4.7. Creatinine 1.06. Glucose 154. AST 122. ALT 75. LDH 1082. C-reactive protein 6.4. Chronic virus by PCR positive. The patient is not vaccinated. He is seen today in the emergency room. Awake and alert in no acute distress. Sitting up on a stretcher. He is 85% O2 saturation on room air. 93% on 2 L per nasal cannula. Afebrile. Hemodynamically stable. He's been initiated on Lovenox and vitamin supplements. He will be started on Decadron. We discussed with him the possibility for Remdesivir which he is reluctant to receive. His who is sitting next to him is also having symptoms and she plans to go get tested today. The patient is seen today 01/24/2021 in follow-up on the observation unit. He is currently sitting up in bed. Awake and alert in no acute distress. He is feeling quite a bit better. Feeling stronger today. He did decline Remdesivir. He has been maintained on Lovenox, Decadron, vitamin supplements. He is currently maintaining O2 saturation in the low 90s on 3 L/m per nasal cannula. He's been afebrile. Hemodynamically stable. Chest x-ray continues to show increased bilateral infiltrates. White count 5.9. Hemoglobin 12.3. D-dimer 0.93. Sodium 134. Potassium 4.1. Creatinine 0.86. Glucose 158. AST 87. ALT 62. LDH 81. C-reactive protein 4.4. On 01/25/2021 patient seen in follow-up on medical surgical floor. He is awake and alert, in no acute distress, breathing comfortably, although still has a persistent cough, does have exertional dyspnea. He is currently on 4 L of oxygen and his pulse ox is borderline between 87-92%. No fever or chills, blood pressure is been stable, patient has been ambulate into the bathroom. Today's chest x-ray shows progressive changes in the lungs with increasing bilateral infiltrates. Patient remains on Decadron 6 mg daily, prophylactic Lovenox, he is on inhaled Buckley dilators, he is on COVID-19 vitamins. His labs from yesterday showed a d-dimer of 0.93, electrolytes and renal profile were fairly unremarkable, his AST and ALT were improving and were down to 87 and 62 respectively, his inflammatory markers showed a trend for improvement with LDH at 881, and CRP of 4.4. On 01/27/2021 patient seen in follow-up on medical surgical floor. Patient's hypoxia has significantly progressed in the last 24-48 hours, and he is currently up to 15 L per high flow nasal cannula and nonrebreather mask, and his pulse ox is 94-95%, he is also more dyspneic on today's exam, no fever, vital signs have been stable other than progressive hypoxia. CT angiogram of the chest showed no evidence of pulmonary embolism, and extensive pulmonary infiltrates, underlying emphysema. Lower extremity Dopplers were negative for DVT. Today's labs have been reviewed, his white blood cell count is 11.8, hemoglobin is 10.5, his d-dimer on yesterday's labs was increased to 12.66 without evidence of PE or DVT, his LDH is still pending for today, and his CRP was 7.3. Pro-A Level Was Negative. he had previously refused Remdesivir, we discussed starting Baricitinib for him and patient is agreeable to try it. On 01/28/2021 patient is seen in follow-up on medical surgical floor. His oxygen demand has remained relatively stable over the last 24 hours, she remains on the same 15 L per high flow nasal cannula and nonrebreather mask at 100%, his pulse ox is ranging between 85-93%, does not appear to be in any acute distress. Looks a bit tired, denies any chest discomfort, his been afebrile, mild cough, no phlegm production. Patient continues on Baricitinib, he is on Decadron, he is on prophylactic Lovenox, today's d-dimer was greater than 34.1. His CT angiogram of the chest and lower extremity Dopplers were negative for PE and DVT. His white blood cell count is 10.2, hemoglobin is 11.4, sodium is 136, dress electrolytes were unremarkable, his renal function took little bump and BUN was up to 43 and creatinine was 1.29 on today's labs. His inflammatory markers are still pending for today, CRP has increased to 17.9. Tolerating ortal intake, no nausea or vomiting, his appetite is good. On 01/29/2021 patient seen in follow-up on medical surgical floor, yesterday he was on increasing amount of oxygen, at 15 L and [place] nonrebreather mask, he was looking fatigued, overnight his hypoxia had progressed, rapid response team was called this morning, for worsening hypoxia, and his pulse ox was only in the 70s on the above mentioned oxygen, patient was placed on BiPAP support with pressures of 12.6 on FiO2 of 90%, O2 saturations has improved, up to 96%, and subsequently FiO2 has been dropped down to 65% and patient is maintaining O2 saturation of 91%. Has been afebrile, hemodynamically stable, he remains on Baricitinib, remains on Decadron, his d-dimer is persistently elevated at 34.1, there was no evidence of PE on the CTA chest from a few days ago, his renal function remains impaired, and worse on today's labs, with BUN up to 67 and creatinine of 1.61. He remains on prophylactic dose Lovenox, we will repeat lower extremity Dopplers today. Otherwise fairly stable, but remains a high risk for further deterioration in his clinical condition. Objective - Vital Signs Vital signs: Vital Signs Temp 97.6 F 01/29/21 10:20 Pulse 53 L 01/29/21 10:20 Resp 16 01/29/21 10:20 BP 160/75 01/29/21 10:20 Pulse Ox 91 L 01/29/21 10:20 Intake & Output 01/28/21 01/29/21 01/29/21 18:59 06:59 18:59 Intake Total 400 Output Total 500 Balance -100 Intake: Oral 400 Output: Urine 500 Other: Voiding Method Indwelling Catheter # Voids 3 - Exam GENERAL EXAM: Alert, very pleasant, 75-year-old white male, on BiPAP support with pressures of 12 and 6 and FiO2 of 65% HEAD: Normocephalic/atraumatic. EYES: Normal reaction of pupils, equal size. Conjunctiva pink, sclera white. NOSE: Clear with pink turbinates. THROAT: No erythema or exudates. NECK: No masses, no JVD, no thyroid enlargement, no adenopathy. CHEST: No chest wall deformity. Symmetrical expansion. LUNGS: Equal air entry with diffuse bilateral crackles CVS: Regular rate and rhythm, normal S1 and S2, no gallops, no murmurs, no rubs ABDOMEN: Soft, nontender. No hepatosplenomegaly, normal bowel sounds, no guarding or rigidity. EXTREMITIES: No clubbing, no edema, no cyanosis, 2+ pulses and upper and lower extremities. MUSCULOSKELETAL: Muscle strength and tone normal. SPINE: No scoliosis or deformity SKIN: No rashes CENTRAL NERVOUS SYSTEM: Alert and oriented -3. No focal deficits, tone is normal in all 4 extremities. PSYCHIATRIC: Alert and oriented -3. Appropriate affect. Intact judgment and insight. - Labs CBC & Chem 7: 01/28/21 06:26 01/29/21 06:54 Labs: Abnormal Lab Results - Last 24 Hours (Table) 01/29/21 01/29/21 01/29/21 Range/Units 03:36 06:54 06:54 D-Dimer >34.10 H (<0.60) mg/L FEU Sodium 134 L (137-145) mmol/L BUN 67 H (9-20) mg/dL Creatinine 1.61 H (0.66-1.25) mg/dL Glucose 111 H (74-99) mg/dL POC Glucose (mg/dL) 132 H (75-99) mg/dL Calcium 8.2 L (8.4-10.2) mg/dL AST 174 H (17-59) U/L ALT 73 H (4-49) U/L Alkaline Phosphatase 146 H (38-126) U/L Total Protein 5.4 L (6.3-8.2) g/dL Albumin 2.5 L (3.5-5.0) g/dL Assessment and Plan Plan: Assessment: #1. Acute hypoxic respiratory failure secondary to COVID-19 pneumonia. Patient is not nonvaccinated adult, his symptoms started on 01/17/2021. Patient took ivermectin on an outpatient basis prescribed by his [place] doctor. Patient refused Remdesivir. Is currently on Decadron, prophylactic anticoagulation, and COVID-19 vitamins. Patient was started on Baricitinib today on 01/27/2021 in view of progressive hypoxia and patient is on BiPAP support now on 01/29/2021 with pressures of 12 and 6 and FiO2 of 65% #2. Elevated inflammatory markers related to the above, slightly improved #3. Elevated transaminases, improving #4. History of COPD with diffuse centrilobar emphysema #5. Former smoker #6. Coronary artery disease with previous coronary artery bypass grafting 4 in 2018 #7. Mitral valve repair #8. Crohn's disease #9. Hypertension #10. History of systolic CHF #11. Elevated d-dimer, and without CT evidence of pulmonary embolism, or DVT on bilateral lower extremity Dopplers #12. Acute kidney injury possibly related to COVID-19 ATN Plan: Continue Baricitinib, today is day 3 of treatment Today's chest x-ray has been reviewed, showing coarse diffuse pulmonary interstitial pneumonia, not significantly changed compared to previous exam Patient has been placed on BiPAP support for respiratory fatigue, actually doing better on BiPAP, and FiO2 has been cut back to 65% from 90% Continue current dose Decadron, and prophylactic Lovenox D-dimer is persistently elevated however patient developed worsening kidney injury We will obtain repeat Doppler of bilateral lower extremities We'll continue to follow his course Overall prognosis is extremely guarded I performed a history & physical examination of the patient and discussed their management with my nurse practitioner, Parvin Arango. I reviewed the nurse practitioner's note and agree with the documented findings and plan of care. Lung sounds are positive for diffuse crackles throughout the lung hernandez. The findings and the impression was discussed with the patient. I attest to the documentation by the nurse practitioner. Time with Patient: Less than 30
--- NOTE | 2021-01-29 13:38 | US ---
EXAMINATION TYPE: US venous doppler duplex LE DATE OF EXAM: 01/29/2021 1:12 PM COMPARISON: US dated 01/26/2021 CLINICAL HISTORY: elevated d-dimer. SIDE PERFORMED: Bilateral TECHNIQUE: The lower extremity deep venous system is examined utilizing real time linear array sonog navi with graded compression, doppler sonography and color-flow sonography. VESSELS IMAGED: Common Femoral Vein Deep Femoral Vein Greater Saphenous Vein * Femoral Vein Popliteal Vein Small Saphenous Vein * Proximal Calf Veins (* superficial vessels) There is normal flow, compressibility, vascular waveforms within the deep veins. Right Leg: Negative for DVT Left Leg: Negative for DVT Positive for SVT. There is thrombus seen in right lesser saphenous vein, vessel is distended with int ernal echoes and noncompressible. IMPRESSION: No evident deep venous thrombosis within the lower extremities from the level of the knee centrally. Superficial venous thrombosis as described right lower extremity
--- NOTE | 2021-01-29 14:33 | P.PN ---
Progress Note - Text Progress Note Date: 01/29/21 Hospital course: 74-year-old patient who follows with Dr. Mauricio Keith. Tonic stable medical conditions include hypertension, Crohn's disease, nephrolithiasis, BPH, hypertension, tinnitus, COPD, CAD with bypass. EF of 20-25%. Presented with shortness of breath. Diagnosed with COVID 19 on January 18 symptoms starting 1 day before. He was found to be hypoxic at home. Upon arrival he was 85%. Patient declined treatment with Remdesivir. Patient had been taking ivermectin as outpatient. She requested this to be continued. This was declined by the admitting team as this was not approved treatment. Patient not vaccinated against COVID. She did with subcu Lovenox and dexamethasone. January 24: Patient feeling better. On 3 L nasal cannula. Oral intake fair. Up in a bed. Slight cough. January 25: Sitting up in a recliner. Tired. Has some chest tightness. 92% on 4 L. Oral intake good. January 26: Bit more short of breath. Oxygen requirement: Up to 15 L. Had low-grade fever. Eating about 50-75%. Tired. Up in a chair. January 27: Short of breath. Sitting at the edge of the bed. 15 L nasal cannula. Decreased appetite. January 28: Laying in bed. Tired. Short of breath. On 15 L nonrebreather. Oral intake fair. Started on Baricitinib by pulmonary January 29: Patient is become more short of breath. Placed on BiPAP. Decreased oral intake. Tired. On Baricitinib, dexamethasone. Review of systems: Was done for constitutional, cardiovascular, GI, pulmonary. relevant finding as above Active Medications Albuterol Sulfate (Albuterol Hfa Inhaler) 2 puff INHALATION RT-QID [facility] Last Admin: 01/29/21 12:47 Dose: 2 puff Documented by: Albuterol Sulfate (Albuterol Hfa Inhaler) 4 puff INHALATION RT-QID PRN PRN Reason: Shortness Of Breath Or Wheezing Ascorbic Acid (Ascorbic Acid 500 Mg Tab) 2,000 mg PO DAILY [facility] Last Admin: 01/29/21 08:45 Dose: 2,000 mg Documented by: Aspirin (Aspirin 81 Mg) 81 mg PO DAILY [facility] Last Admin: 01/29/21 08:45 Dose: 81 mg Documented by: Balsalazide (Balsalazide Disodium 750 Mg Capsule) 2,250 mg PO TID [facility] Last Admin: 01/29/21 08:47 Dose: 2,250 mg Documented by: Baricitinib (Baricitinib 2 Mg Tablet) 2 mg PO DAILY@1400 [facility] Stop: 02/09/21 14:01 Last Admin: 01/28/21 13:57 Dose: 2 mg Documented by: Cholecalciferol (Cholecalciferol 125 Mcg (5000 Iu) Tablet) 125 mcg PO DAILY [facility] Last Admin: 01/29/21 08:46 Dose: 125 mcg Documented by: Cyanocobalamin (Cyanocobalamin 500 Mcg Tab) 4,000 mcg PO DAILY [facility] Last Admin: 01/29/21 08:46 Dose: 4,000 mcg Documented by: Dexamethasone (Dexamethasone 2 Mg Tab) 6 mg PO DAILY [facility] Last Admin: 01/29/21 08:45 Dose: 6 mg Documented by: Enoxaparin Sodium (Enoxaparin 40 Mg/0.4 Ml Syringe) 40 mg SQ DAILY [facility] Last Admin: 01/29/21 08:45 Dose: 40 mg Documented by: Fluticasone Propionate (Fluticasone 110 Mcg Inhaler) 2 puff INHALATION RT-BID [facility] Last Admin: 01/29/21 09:22 Dose: Not Given Documented by: Hydralazine HCl (Hydralazine Hcl 25 Mg Tab) 25 mg PO BID [facility] Last Admin: 01/29/21 08:46 Dose: 25 mg Documented by: Lactated Ringer's (Lactated Ringers) 1,000 mls @ 125 mls/hr IV .Q8H [facility] Last Admin: 01/29/21 11:43 Dose: 125 mls/hr Documented by: Metoprolol Tartrate (Metoprolol Tartrate 25 Mg Tab) 25 mg PO BID [facility] Last Admin: 01/29/21 08:45 Dose: 25 mg Documented by: Naloxone HCl (Naloxone 0.4 Mg/Ml 1 Ml Vial) 0.2 mg IV Q2M PRN PRN Reason: Opioid Reversal Tamsulosin HCl (Tamsulosin 0.4 Mg Cap.Er.24h) 0.4 mg PO BID [facility] Last Admin: 01/29/21 08:46 Dose: 0.4 mg Documented by: Zinc Sulfate (Zinc Sulfate 220 Mg Cap) 220 mg PO DAILY [facility] Last Admin: 01/29/21 08:45 Dose: 220 mg Documented by: On examination: VITAL SIGNS: 97.6, 53, 22, 160/75, 91% on BiPAP at 70% GENERAL APPEARANCE: Laying in bed awake, tired, RESPIRATORY: Respiratory effort increased. PSYCHIATRY: Alert and oriented x3. Mood and affect normal. NEUROLOGICAL: Cranial nerves grossly intact. Moving all 4 limbs Rest of the exam per pulmonary and nursing INVESTIGATIONS, reviewed in the clinical context: January 29: D-dimer greater than 34 potassium 4.4 BUN 67 creatinine 1.61 AST 174 ALT 73 January 28: WBC 10.2 hemoglobin 11.4 platelets 154 d-dimer greater than 34 sodium 136 potassium 4.9. 43 creatinine 1.29 January 27: WBC 11.8 hemoglobin 10.5 January 26: White count 11.8 hemoglobin 11.5 d-dimer 12.6 CRP 7.3 White count 5.9 hemoglobin 12.3 platelets 162 d-dimer 0.93 potassium 4.1 creatinine 0.86 CRP 4.4 Admission labs: Pro-calcitonin 0.04 Coronavirus [PCR]: Detected D-dimer 0.83 EKG tracing personally reviewed by me-sinus bradycardia. Rate 55 Chest x-ray: biLateral infiltrates Assessment and plan: -Bilateral COVID 19 pneumonitis: Worsening Dexamethasone. Subcu Lovenox. (declined Remdesivir. patient was taking ivermectin at home). Baricitinib started January 28 -Acute hypoxic respiratory failure from COVID 19: Worsening On BiPAP 70% -Essential hypertension Lopressor 25 mg twice a day, hydralazine 25 mg twice a day -Chronic Crohn's disease Pentasa 1000 milligrams 3 times a day - nephrolithiasis Follow clinically -Acute kidney injury. Possibly ATN from COVID 19: *Lactated Ringer's at 1 25 mL an hour. Consult nephrology -BPH Flomax 0.4 mg twice a day -COPD in a previous smoker Pulmicort -Chronic tinnitus with hearing impairment -CAD with bypass Aspirin, beta billy, Lipitor -Hyperlipidemia Lipitor 40 mg daily -Acute hepatitis hold Lipitor. Follow LFT BiPAP. Dexamethasone. Follow LFT. Baricitinib. Follow with pulmonary. Consult nephrology. Start LR at 1 25 mL an hour. Discussed with patient.
[2021-01-29] MEDS: BARICITINIB 2 MG TABLET PO SCH (15:32)
[2021-01-30] MEDS: LACTATED RINGERS 1,000 ML IV SCH ×3 (03:23→21:49)
[2021-01-30] MEDS: hydrALAZINE HCL 25 MG TAB PO SCH ×2 (07:28→21:54)
[2021-01-30] MEDS: METOPROLOL TARTRATE 25 MG TAB PO SCH ×2 (07:29→21:54)
[2021-01-30] MEDS: dexAMETHasone 2 MG TAB PO SCH (07:38)
[2021-01-30] MEDS: ENOXAPARIN 40 MG/0.4 ML SYRINGE SQ SCH (07:39)
[2021-01-30] MEDS: ZINC SULFATE 220 MG CAP PO SCH (07:40)
[2021-01-30] MEDS: CYANOCOBALAMIN 500 MCG TAB PO SCH (07:40)
[2021-01-30] MEDS: TAMSULOSIN 0.4 MG CAP.ER.24H PO SCH ×2 (07:40→21:54)
[2021-01-30] MEDS: ASCORBIC ACID 500 MG TAB PO SCH (07:41)
[2021-01-30] MEDS: CHOLECALCIFEROL 125 MCG (5000 IU) TABLET PO SCH (07:41)
[2021-01-30] MEDS: ASPIRIN 81 MG PO SCH (07:41)
[2021-01-30] MEDS: BALSALAZIDE DISODIUM 750 MG CAPSULE PO SCH ×3 (07:41→21:54)
[2021-01-30 09:29] LABS: Basophils # (A) 0.01 X 10*3/uL (0.00-0.10); Basophils % (A) 0.1 %; Eosinophils # (A) 0 X 10*3/uL (0.04-0.35); Eosinophils % (A) 0 %; HCT 30.8 % (39.6-50.0); HGB 9.8 g/dL (13.0-17.0); Lymphocytes # (A) 0.29 X 10*3/uL (0.90-5.00); Lymphocytes % (A) 2.8 %; MCH 27.6 pg (27.0-32.0); MCHC 31.8 g/dL (32.0-37.0); MCV 86.8 fL (80.0-97.0); Mean Platelet Volume 11.1 fL (9.5-12.2); Monocytes # (A) 0.61 X 10*3/uL (0.20-1.00); Monocytes % (A) 5.8 %; Neutrophils # (A) 9.29 X 10*3/uL (1.80-7.70); Neutrophils % (A) 89.1 %; Platelet Count 145 X 10*3/uL (140-440); RBC 3.55 X 10*6/uL (4.40-5.60); RDW 14.5 % (11.5-14.5); WBC 10.43 X 10*3/uL (4.50-10.00)
[2021-01-30] MEDS: ALBUTEROL HFA INHALER INHALATION SCH ×4 (09:36→19:44)
[2021-01-30] MEDS: FLUTICASONE 110 MCG INHALER INHALATION SCH ×2 (09:36→19:44)
[2021-01-30 10:58] LABS: African American GFR (CKD) 57.4 (60.0-200.0); Albumin 2.7 g/dL (3.8-4.9); Albumin/Globulin Ratio 1.13 (1.60-3.17); Anion Gap 10.8 mmol/L (10.00-18.00); BUN/Creat Ratio 42.64 Ratio (12.00-20.00); Blood Urea Nitrogen 59.7 mg/dL (9.0-27.0); Calcium 8.2 mg/dL (8.7-10.3); Carbon Dioxide 24.2 mmol/L (20.0-27.5); Globulin 2.4 g/dL (1.6-3.3); Non-African American GFR(CKD) 49.5 (60.0-200.0); Potassium 4.5 mmol/L (3.5-5.5); Total Bilirubin 0.8 mg/dL (0.30-1.20); Total Protein 5.1 g/dL (6.2-8.2)
[2021-01-30] MEDS: BARICITINIB 2 MG TABLET PO SCH (13:17)
--- NOTE | 2021-01-30 14:09 | P.PN ---
Subjective Progress Note Date: 01/30/21 Principal diagnosis: Dyspnea, hypoxia, COVID-19 pneumonia This is a 75-year-old male patient who follows with Dr. Mauricio Keith is his primary care provider. He has a history of coronary artery disease with previous coronary artery bypass grafting, mitral valve replacement, hy pertension, hyperlipidemia, chronic obstructive pulmonary disease, former smoker, Crohn's disease. On January 17 the patient started having symptoms of fever cough congestion weakness and was tested for COVID-19 on January 18. He found out his results on January 21 and was told to stay home and rest unless his symptoms worsened. He was given doxycycline and prednisone 20 mg twice a day. His brought him into the emergency room here today as his oxygen levels were dropping at home. Chest x-rays revealing patchy bilateral interstitial pneumonia with underlying COPD. White count 2.8. Hemoglobin 12.9. Platelets 149. Lymphocytes 0.2. D-dimer 0.83. Sodium 133. Potassium 4.7. Creatinine 1.06. Glucose 154. AST 122. ALT 75. LDH 1082. C-reactive protein 6.4. Chronic virus by PCR positive. The patient is not vaccinated. He is seen today in the emergency room. Awake and alert in no acute distress. Sitting up on a stretcher. He is 85% O2 saturation on room air. 93% on 2 L per nasal cannula. Afebrile. Hemodynamically stable. He's been initiated on Lovenox and vitamin supplements. He will be started on Decadron. We discussed with him the possibility for Remdesivir which he is reluctant to receive. His who is sitting next to him is also having symptoms and she plans to go get tested today. The patient is seen today 01/24/2021 in follow-up on the observation unit. He is currently sitting up in bed. Awake and alert in no acute distress. He is feeling quite a bit better. Feeling stronger today. He did decline Remdesivir. He has been maintained on Lovenox, Decadron, vitamin supplements. He is currently maintaining O2 saturation in the low 90s on 3 L/m per nasal cannula. He's been afebrile. Hemodynamically stable. Chest x-ray continues to show increased bilateral infiltrates. White count 5.9. Hemoglobin 12.3. D-dimer 0.93. Sodium 134. Potassium 4.1. Creatinine 0.86. Glucose 158. AST 87. ALT 62. LDH 81. C-reactive protein 4.4. On 01/25/2021 patient seen in follow-up on medical surgical floor. He is awake and alert, in no acute distress, breathing comfortably, although still has a persistent cough, does have exertional dyspnea. He is currently on 4 L of oxygen and his pulse ox is borderline between 87-92%. No fever or chills, blood pressure is been stable, patient has been ambulate into the bathroom. Today's chest x-ray shows progressive changes in the lungs with increasing bilateral infiltrates. Patient remains on Decadron 6 mg daily, prophylactic Lovenox, he is on inhaled [place] dilators, he is on COVID-19 vitamins. His labs from yesterday showed a d-dimer of 0.93, electrolytes and renal profile were fairly unremarkable, his AST and ALT were improving and were down to 87 and 62 respectively, his inflammatory markers showed a trend for improvement with LDH at 881, and CRP of 4.4. On 01/27/2021 patient seen in follow-up on medical surgical floor. Patient's hypoxia has significantly progressed in the last 24-48 hours, and he is currently up to 15 L per high flow nasal cannula and nonrebreather mask, and his pulse ox is 94-95%, he is also more dyspneic on today's exam, no fever, vital signs have been stable other than progressive hypoxia. CT angiogram of the chest showed no evidence of pulmonary embolism, and extensive pulmonary infiltrates, underlying emphysema. Lower extremity Dopplers were negative for DVT. Today's labs have been reviewed, his white blood cell count is 11.8, hemoglobin is 10.5, his d-dimer on yesterday's labs was increased to 12.66 without evidence of PE or DVT, his LDH is still pending for today, and his CRP was 7.3. Pro-A Level Was Negative. he had previously refused Remdesivir, we discussed starting Baricitinib for him and patient is agreeable to try it. On 01/28/2021 patient is seen in follow-up on medical surgical floor. His oxygen demand has remained relatively stable over the last 24 hours, she remains on the same 15 L per high flow nasal cannula and nonrebreather mask at 100%, his pulse ox is ranging between 85-93%, does not appear to be in any acute distress. Looks a bit tired, denies any chest discomfort, his been afebrile, mild cough, no phlegm production. Patient continues on Baricitinib, he is on Decadron, he is on prophylactic Lovenox, today's d-dimer was greater than 34.1. His CT angiogram of the chest and lower extremity Dopplers were negative for PE and DVT. His white blood cell count is 10.2, hemoglobin is 11.4, sodium is 136, dress electrolytes were unremarkable, his renal function took little bump and BUN was up to 43 and creatinine was 1.29 on today's labs. His inflammatory markers are still pending for today, CRP has increased to 17.9. Tolerating ortal intake, no nausea or vomiting, his appetite is good. On 01/29/2021 patient seen in follow-up on medical surgical floor, yesterday he was on increasing amount of oxygen, at 15 L and [place] nonrebreather mask, he was looking fatigued, overnight his hypoxia had progressed, rapid response team was called this morning, for worsening hypoxia, and his pulse ox was only in the 70s on the above mentioned oxygen, patient was placed on BiPAP support with pressures of 12.6 on FiO2 of 90%, O2 saturations has improved, up to 96%, and subsequently FiO2 has been dropped down to 65% and patient is maintaining O2 saturation of 91%. Has been afebrile, hemodynamically stable, he remains on Baricitinib, remains on Decadron, his d-dimer is persistently elevated at 34.1, there was no evidence of PE on the CTA chest from a few days ago, his renal function remains impaired, and worse on today's labs, with BUN up to 67 and creatinine of 1.61. He remains on prophylactic dose Lovenox, we will repeat lower extremity Dopplers today. Otherwise fairly stable, but remains a high risk for further deterioration in his clinical condition. On 01/30/2021 patient seen in follow-up on medical surgical floor, he remains on BiPAP support with pressures of 12 and 6 and FiO2 is currently at 80%. His O2 saturations are ranging between 87-96%, he states his breathing is improved, he is less dyspneic and less tachypneic. He is tolerating BiPAP support quite well, he is awake and alert, he sitting up in the recliner, his been afebrile, hemodynamically he has been stable, continues to have a cough, at times he is able to bring up some phlegm and at times it is blood tinged according to the patient. His d-dimer was significantly elevated on yesterday's labs, lower extremity Dopplers showed no evidence of DVT, and patient continues on prophylactic dose Lovenox 40 mg daily, he is on Baricitinib, and Decadron 6 mg daily. Today's labs have been reviewed, his white blood cell count is 10.4, hemoglobin is 9.8, platelet count is 145, electrolytes are within normal limits, renal function has improved on BUN is down to 59 and creatinine is 1.4, his AST and ALT are improving, alkaline phosphatase is 184, slightly increased, his LDH and CRP are still pending for today. His appetite is good, and patient is able to remove the BiPAP mask and reapplied in between bites. He 100% of his lunch. He was on face time with his , and I updated the patient's on his prog ress and the plan of care. She was concerned about his nutrition and we will add ensure 3 times a day with meals to supplement his nutrition Objective - Vital Signs Vital signs: Vital Signs Temp 97.4 F L 01/30/21 10:23 Pulse 59 L 01/30/21 10:23 Resp 18 01/30/21 10:23 BP 126/68 01/30/21 10:23 Pulse Ox 97 01/30/21 10:23 Intake & Output 01/29/21 01/30/21 01/30/21 18:59 06:59 18:59 Intake Total 1500 Output Total 400 Balance -400 1500 Weight 72.575 kg Intake: Intake, IV Titration 1500 Amount Lactated Ringers 1,000 ml 1500 @ 125 mls/hr IV .Q8H [facility] Rx#:[id number] Output: Urine 400 Other: Voiding Method Urinal # Voids 2 # Bowel Movements 2 2 - Exam GENERAL EXAM: Alert, very pleasant, 75-year-old white male, on BiPAP support with pressures of 12 and 6 and FiO2 of 80% HEAD: Normocephalic/atraumatic. EYES: Normal reaction of pupils, equal size. Conjunctiva pink, sclera white. NOSE: Clear with pink turbinates. THROAT: No erythema or exudates. NECK: No masses, no JVD, no thyroid enlargement, no adenopathy. CHEST: No chest wall deformity. Symmetrical expansion. LUNGS: Equal air entry with diffuse bilateral crackles CVS: Regular rate and rhythm, normal S1 and S2, no gallops, no murmurs, no rubs ABDOMEN: Soft, nontender. No hepatosplenomegaly, normal bowel sounds, no gua rding or rigidity. EXTREMITIES: No clubbing, no edema, no cyanosis, 2+ pulses and upper and lower extremities. MUSCULOSKELETAL: Muscle strength and tone normal. SPINE: No scoliosis or deformity SKIN: No rashes CENTRAL NERVOUS SYSTEM: Alert and oriented -3. No focal deficits, tone is normal in all 4 extremities. PSYCHIATRIC: Alert and oriented -3. Appropriate affect. Intact judgment and insight. - Labs CBC & Chem 7: 01/30/21 06:41 01/30/21 06:41 Labs: Abnormal Lab Results - Last 24 Hours (Table) 01/30/21 01/30/21 Range/Units 06:41 06:41 WBC 10.43 H (4.50-10.00) X 10*3/uL RBC 3.55 L (4.40-5.60) X 10*6/uL Hgb 9.8 L (13.0-17.0) g/dL Hct 30.8 L (39.6-50.0) % MCHC 31.8 L (32.0-37.0) g/dL Immature Gran # 0.23 H (0.00-0.04) X 10*3/uL Neutrophils # 9.29 H (1.80-7.70) X 10*3/uL Lymphocytes # 0.29 L (0.90-5.00) X 10*3/uL Eosinophils # 0 L (0.04-0.35) X 10*3/uL BUN 59.7 H (9.0-27.0) mg/dL Est GFR (CKD-EPI)AfAm 57.4 L (60.0-200.0) Est GFR (CKD-EPI)NonAf 49.5 L (60.0-200.0) BUN/Creatinine Ratio 42.64 H (12.00-20.00) Ratio Calcium 8.2 L (8.7-10.3) mg/dL AST 83 H (14-35) U/L ALT 58 H (10-49) U/L Alkaline Phosphatase 184 H (41-126) U/L Total Protein 5.1 L (6.2-8.2) g/dL Albumin 2.7 L (3.8-4.9) g/dL Albumin/Globulin Ratio 1.13 L (1.60-3.17) g/dL Assessment and Plan Plan: Assessment: #1. Acute hypoxic respiratory failure secondary to COVID-19 pneumonia. Patient is not nonvaccinated adult, his symptoms started on 01/17/2021. Patient took ivermectin on an outpatient basis prescribed by his [place] doctor. Patient refused Remdesivir. Is currently on Decadron, prophylactic anticoagulation, and COVID-19 vitamins. Patient was started on Baricitinib today on 01/27/2021 in view of progressive hypoxia and patient is on BiPAP support now on 01/29/2021 with pressures of 12 and 6 and FiO2 of 80% #2. Elevated inflammatory markers related to the above, slightly improved #3. Elevated transaminases, improving #4. History of COPD with diffuse centrilobar emphysema #5. Former smoker #6. Coronary artery disease with previous coronary artery bypass grafting 4 in 2018 #7. Mitral valve repair #8. Crohn's disease #9. Hypertension #10. History of systolic CHF #11. Elevated d-dimer, and without CT evidence of pulmonary embolism, or DVT on bilateral lower extremity Dopplers #12. Acute kidney injury possibly related to COVID-19 ATN, improving Plan: Continue Baricitinib, today is day 4 of treatment Patient remains on BiPAP support at 12 and 6 and FiO2 of 80% Breathing comfortably, tolerates BiPAP support quite well We'll continue current dose Decadron and prophylactic Lovenox Lower extremity Dopplers were negative for DVT Renal function is improved on today's labs we'll proceed with CTA chest to rule out possibility of pulmonary embolism Continue IV hydration with lactated Ringer's at 125 ML per hour Patient is agreeable with the plan His was also updated Encourage oral intake as much as possible and provide nutritional supplementation in the form of Ensure 3 times daily with meals We'll continue to closely follow I performed a history & physical examination of the patient and discussed their management with my nurse practitioner, Parvin Nba. I reviewed the nurse practitioner's note and agree with the documented findings and plan of care. Lung sounds are positive for diffuse crackles throughout the lung hernandez. The findings and the impression was discussed with the patient. I attest to the documentation by the nurse practitioner. Time with Patient: Less than 30
--- NOTE | 2021-01-30 16:24 | CT ---
EXAMINATION TYPE: CT chest angio for PE DATE OF EXAM: 01/30/2021 COMPARISON: CTA chest 4 days ago. Chest x-ray from yesterday. HISTORY: elevated d-dimer, +covid CT DLP: 342.8 mGycm. Automated Exposure Control for Dose Reduction was Utilized. CONTRAST: CTA scan of the thorax is performed with IV Contrast, patient injected with 80cc mL of Isovue 370, pu lmonary embolism protocol. MIP Images are created on CT scanner and reviewed. FINDINGS: LUNGS: Moderate to advanced underlying emphysematous changes are redemonstrated. Patchy and confluent areas of groundglass opacity bilaterally are redemonstrated greatest in the lower lungs were there a re areas of organizing consolidation and peribronchial wall thickening present. Findings slightly imp roved from most recent CT. No pleural effusion or pneumothorax seen bilaterally. MEDIASTINUM: There is satisfactory enhancement of the pulmonary artery and its branches, there is sma ll degree of pulmonary embolism now present right lower lobe segmental branch axial image 89 with sub segmental extension. No left-sided pulmonary emboli clearly seen. There are persistent enlarged bila teral hilar lymph nodes presumed reactive along with enlarged prevascular lymph node axial image 59. No cardiomegaly or pericardial effusion is seen. No new right ventricular dilatation.Surgical [facility] ed mitral valve redemonstrated. Coronary calcification again seen. OTHER: Subareolar gynecomastia bilaterally is redemonstrated. Simple appearing fairly large Thin-wall ed cysts left kidney are partially imaged. IMPRESSION: New Partially occlusive embolism segmental branch right lower lobe with subsegmental exte nsion. Persistent bilateral ground glass opacities and organizing consolidations greatest in the lowe r lungs slightly improved from prior study suggests improving covid-19 infection. Case discussed with patient's nurse via telephone at time of dictation. A Document Only message has been documented for Delvis Huffman MD in the [employer] system on 01/30/2021 4:21 PM, Message ID [id number].
--- NOTE | 2021-01-30 19:31 | P.PN ---
Progress Note - Text Progress Note Date: 01/30/21 Hospital course: 74-year-old patient who follows with Dr. Mauricio Keith. Tonic stable medical conditions include hypertension, Crohn's disease, nephrolithiasis, BPH, hypertension, tinnitus, COPD, CAD with bypass. EF of 20-25%. Presented with shortness of breath. Diagnosed with COVID 19 on January 18 symptoms starting 1 day before. He was found to be hypoxic at home. Upon arrival he was 85%. Patient declined treatment with Remdesivir. Patient had been taking ivermectin as outpatient. She requested this to be continued. This was declined by the admitting team as this was not approved treatment. Patient not vaccinated against COVID. She did with subcu Lovenox and dexamethasone. January 24: Patient feeling better. On 3 L nasal cannula. Oral intake fair. Up in a bed. Slight cough. January 25: Sitting up in a recliner. Tired. Has some chest tightness. 92% on 4 L. Oral intake good. January 26: Bit more short of breath. Oxygen requirement: Up to 15 L. Had low-grade fever. Eating about 50-75%. Tired. Up in a chair. January 27: Short of breath. Sitting at the edge of the bed. 15 L nasal cannula. Decreased appetite. January 28: Laying in bed. Tired. Short of breath. On 15 L nonrebreather. Oral intake fair. Started on Baricitinib by pulmonary January 29: Patient is become more short of breath. Placed on BiPAP. Decreased oral intake. Tired. On Baricitinib, dexamethasone. January 30: Sitting up in a chair. Using BiPAP. Short of breath. Decreased oral intake. On Baricitinib) dexamethasone. Acute PE on CT chest. Started on eliquis Review of systems: Was done for constitutional, cardiovascular, GI, pulmonary. relevant finding as above Active Medications Albuterol Sulfate (Albuterol Hfa Inhaler) 2 puff INHALATION RT-QID [facility] Last Admin: 01/30/21 16:29 Dose: 2 puff Documented by: Albuterol Sulfate (Albuterol Hfa Inhaler) 4 puff INHALATION RT-QID PRN PRN Reason: Shortness Of Breath Or Wheezing Apixaban (Apixaban 5 Mg Tab) 10 mg PO BID [facility]; Protocol Stop: 02/06/21 09:01 Apixaban (Apixaban 5 Mg Tab) 5 mg PO BID [facility]; Protocol Ascorbic Acid (Ascorbic Acid 500 Mg Tab) 2,000 mg PO DAILY [facility] Last Admin: 01/30/21 07:41 Dose: 2,000 mg Documented by: Aspirin (Aspirin 81 Mg) 81 mg PO DAILY [facility] Last Admin: 01/30/21 07:41 Dose: 81 mg Documented by: Balsalazide (Balsalazide Disodium 750 Mg Capsule) 2,250 mg PO TID [facility] Last Admin: 01/30/21 16:32 Dose: 2,250 mg Documented by: Baricitinib (Baricitinib 2 Mg Tablet) 2 mg PO DAILY@1400 [facility] Stop: 02/09/21 14:01 Last Admin: 01/30/21 13:17 Dose: 2 mg Documented by: Cholecalciferol (Cholecalciferol 125 Mcg (5000 Iu) Tablet) 125 mcg PO DAILY [facility] Last Admin: 01/30/21 07:41 Dose: 125 mcg Documented by: Cyanocobalamin (Cyanocobalamin 500 Mcg Tab) 4,000 mcg PO DAILY [facility] Last Admin: 01/30/21 07:40 Dose: 4,000 mcg Documented by: Dexamethasone (Dexamethasone 2 Mg Tab) 6 mg PO DAILY [facility] Last Admin: 01/30/21 07:38 Dose: 6 mg Documented by: Fluticasone Propionate (Fluticasone 110 Mcg Inhaler) 2 puff INHALATION RT-BID [facility] Last Admin: 01/30/21 09:36 Dose: 2 puff Documented by: Hydralazine HCl (Hydralazine Hcl 25 Mg Tab) 25 mg PO BID [facility] Last Admin: 01/30/21 07:28 Dose: Not Given Documented by: Lactated Ringer's (Lactated Ringers) 1,000 mls @ 125 mls/hr IV .Q8H [facility] Last Admin: 01/30/21 12:34 Dose: 125 mls/hr Documented by: Metoprolol Tartrate (Metoprolol Tartrate 25 Mg Tab) 25 mg PO BID [facility] Last Admin: 01/30/21 07:29 Dose: Not Given Documented by: Naloxone HCl (Naloxone 0.4 Mg/Ml 1 Ml Vial) 0.2 mg IV Q2M PRN PRN Reason: Opioid Reversal Tamsulosin HCl (Tamsulosin 0.4 Mg Cap.Er.24h) 0.4 mg PO BID [facility] Last Admin: 01/30/21 07:40 Dose: 0.4 mg Documented by: Zinc Sulfate (Zinc Sulfate 220 Mg Cap) 220 mg PO DAILY [facility] Last Admin: 01/30/21 07:40 Dose: 220 mg Documented by: On examination: VITAL SIGNS: 97.2, 59, 24, 1 23 x 50, 96% on BiPAP GENERAL APPEARANCE: Sitting up in a chair awake, tired, RESPIRATORY: Respiratory effort increased. PSYCHIATRY: Alert and oriented x3. Mood and affect normal. NEUROLOGICAL: Cranial nerves grossly intact. Moving all 4 limbs Rest of the exam per pulmonary and nursing INVESTIGATIONS, reviewed in the clinical context: January 30: WBC 10.4 hemoglobin 9.8 platelets 145 potassium 4.5 creatinine 1.4. AST [address] angiogram for PE [January 30] new [place] occlusive embolism segmental bronchus right lower lobe with segmental extension. Doppler ultrasound [January 29]: Superficial thrombosis in the right lesser saphenous vein. January 29: D-dimer greater than 34 potassium 4.4 BUN 67 creatinine 1.61 AST 174 ALT 73 January 28: WBC 10.2 hemoglobin 11.4 platelets 154 d-dimer greater than 34 sodium 136 potassium 4.9. 43 creatinine 1.29 January 27: WBC 11.8 hemoglobin 10.5 January 26: White count 11.8 hemoglobin 11.5 d-dimer 12.6 CRP 7.3 White count 5.9 hemoglobin 12.3 platelets 162 d-dimer 0.93 potassium 4.1 creatinine 0.86 CRP 4.4 Admission labs: Pro-calcitonin 0.04 Coronavirus [PCR]: Detected D-dimer 0.83 EKG tracing personally reviewed by me-sinus bradycardia. Rate 55 Chest x-ray: biLateral infiltrates Assessment and plan: -Bilateral COVID 19 pneumonitis: Worsening Dexamethasone. Subcu Lovenox. (declined Remdesivir. patient was taking ivermectin at home). Baricitinib started January 28 -Acute pulmonary embolism: New diagnosis Started on eliquis -Acute hypoxic respiratory failure from COVID 19: Worsening On BiPAP 70% -Essential hypertension Lopressor 25 mg twice a day, hydralazine 25 mg twice a day -Chronic Crohn's disease Pentasa 1000 milligrams 3 times a day - nephrolithiasis Follow clinically -Acute kidney injury. Possibly ATN from COVID 19:: Slow to respond *Lactated Ringer's at 1 25 mL an hour. Consult nephrology -BPH Flomax 0.4 mg twice a day -COPD in a previous smoker Pulmicort -Chronic tinnitus with hearing impairment -CAD with bypass Aspirin, beta billy, Lipitor -Hyperlipidemia Lipitor 40 mg daily -Acute hepatitis: Improving hold Lipitor. Follow LFT BiPAP. Dexamethasone. Eliquis started. Baricitinib. LR at 125 mL an hour. Follow labs
--- NOTE | 2021-01-30 20:53 | CONS ---
CONSULTATION REASON FOR CONSULT: Acute kidney injury. HISTORY OF PRESENT ILLNESS: Patient is a 75-year-old who was admitted to the hospital on 01/23/2021 with complaints of shortness of breath. Cough, weakness. The patient tested positive for Covid 19 PCR. He denies any previous history of kidney diseases. Patient's serum creatinine was 1.0 and 0.86 mg/dL on initial admission. He did go up to 1.6 and today is down back to 1.4. Currently maintained on IV fluids. The patient states that he has good urine output. He is currently voiding on his own. Blood pressure has not been significantly low, although I do see a low reading of 99 systolic earlier this morning as well as 97 and 83 on 01/28/2021. The patient also had a chest CTA done on 01/26/2021, which does not show any evidence of pulmonary embolism. PAST MEDICAL HISTORY: Significant for cardiomyopathy, EF 20-25 percent, COPD, systolic heart failure. Coronary artery disease, IBS, Crohn's disease, BPH, paroxysmal atrial fibrillation, hearing disorder, nephrolithiasis, tinnitus. PAST SURGICAL HISTORY: Coronary artery bypass surgery, hernia surgery, tonsillectomy, hernia repair, lithotripsy, colonoscopies, umbilical hernia repair. SOCIAL HISTORY: Negative for smoking, drug abuse or alcohol abuse. MEDICATIONS: Included vitamin B12, aspirin, Lipitor, Lopressor, vitamin C, Pulmicort, vitamin D3, Vibramycin, Pentasa, Flomax, hydralazine, Deltasone started recently. ALLERGIES: None. REVIEW OF SYSTEMS: As per HPI. Other systems negative. EXAMINATION: The patient is comfortable, awake, not in any acute distress. Blood pressure this morning 123/50, heart rate 59 per minute. Patient is afebrile. Examination of lower extremities shows no significant edema. [employer] exam grossly intact. Lungs and heart are not examined. LAB: Show hemoglobin 9.8, sodium 138, potassium 4.5, BUN 59.7, serum creatinine 1.4, albumin 2.7 g/dL. ASSESSMENT: 1. Acute kidney injury associated with hypotension, perhaps some volume depletion as well. Currently maintained on IV fluids with improvement in renal function. There is also an element of contrast nephropathy as patient has a chest CTA on 01/26/2021. 2. Acute hypoxic respiratory failure secondary to COVID pneumonia, maintained on 15 L nasal cannula and BiPAP. 3. Ischemic cardiomyopathy, currently not in failure. 4. History of chronic obstructive pulmonary disease with diffuse emphysema. 5. Coronary artery disease with history of coronary artery bypass surgery. PLAN: Continue with IV fluids. Repeat labs in a.m. Check urinalysis. Thank you for this consultation. We will continue to follow the patient with you during his hospitalization. MMLAYLAL / ANDRESN: [id number] /
[2021-01-30] MEDS: APIXABAN 5 MG TAB PO SCH (21:54)
[2021-01-30 22:50] LABS: Appearance,Urine Clear (Clear); Bilirubin,Urine Negative (Negative); Blood,Urine Negative (Negative); Color,Urine Yellow; Glucose,Urine (UA) Negative (Negative); Ketones,Urine Negative (Negative); Leukocyte Esterase,Urine Negative (Negative); Nitrite,Urine Negative (Negative); Protein,Urine Trace (Negative); Specific Gravity,Urine 1.039 (1.001-1.035); Urobilinogen,Urine <2.0 mg/dL (<2.0)
[2021-01-31] MEDS: LACTATED RINGERS 1,000 ML IV SCH ×5 (04:55→17:36)
[2021-01-31 07:10] LABS: Basophils % (A) 0 %; Eosinophils % (A) 0 %; HCT 31.5 % (39.0-53.0); HGB 10.3 gm/dL (13.0-17.5); Lymphocytes # (A) 0.1 k/uL (1.0-4.8); Lymphocytes % (A) 1 %; MCH 28.6 pg (25.0-35.0); MCHC 32.6 g/dL (31.0-37.0); MCV 87.9 fL (80.0-100.0); Mean Platelet Volume 7.9; Monocytes # (A) 0.3 k/uL (0-1.0); Monocytes % (A) 2 %; Neutrophils # (A) 12.6 k/uL (1.3-7.7); Neutrophils % (A) 96 %; Platelet Count 161 k/uL (150-450); RBC 3.59 m/uL (4.30-5.90); RDW 14.5 % (11.5-15.5); WBC 13.1 k/uL (3.8-10.6)
[2021-01-31 08:01] LABS: ALT 46 U/L (4-49); AST 71 U/L (17-59); African American GFR (CKD) 65 (>60 ml/min/1.73 sqM); Albumin 2.7 g/dL (3.5-5.0); Albumin/Globulin Ratio 0.9; Alkaline Phosphatase 173 U/L (38-126); Anion Gap 6 mmol/L; Blood Urea Nitrogen 56 mg/dL (9-20); C Reactive Protein 3.5 mg/dL (<1.0); Calcium 8.3 mg/dL (8.4-10.2); Carbon Dioxide 27 mmol/L (22-30); Chloride 103 mmol/L (98-107); Glucose 76 mg/dL (74-99); LDH 2005 U/L (313-618); Non-African American GFR(CKD) 56 (>60 ml/min/1.73 sqM); Potassium 4.5 mmol/L (3.5-5.1); Sodium 136 mmol/L (137-145); Total Bilirubin 0.8 mg/dL (0.2-1.3); Total Protein 5.7 g/dL (6.3-8.2)
[2021-01-31] MEDS: ASCORBIC ACID 500 MG TAB PO SCH (08:21)
[2021-01-31] MEDS: dexAMETHasone 2 MG TAB PO SCH (08:21)
[2021-01-31] MEDS: APIXABAN 5 MG TAB PO SCH ×2 (08:21→22:38)
[2021-01-31] MEDS: TAMSULOSIN 0.4 MG CAP.ER.24H PO SCH ×2 (08:21→22:37)
[2021-01-31] MEDS: hydrALAZINE HCL 25 MG TAB PO SCH ×2 (08:22→22:37)
[2021-01-31] MEDS: ASPIRIN 81 MG PO SCH (08:22)
[2021-01-31] MEDS: CHOLECALCIFEROL 125 MCG (5000 IU) TABLET PO SCH (08:22)
[2021-01-31] MEDS: METOPROLOL TARTRATE 25 MG TAB PO SCH ×2 (08:22→22:37)
[2021-01-31] MEDS: ZINC SULFATE 220 MG CAP PO SCH (08:22)
[2021-01-31] MEDS: CYANOCOBALAMIN 500 MCG TAB PO SCH (08:22)
[2021-01-31] MEDS: BALSALAZIDE DISODIUM 750 MG CAPSULE PO SCH ×3 (08:28→22:38)
[2021-01-31] MEDS: ACETAMINOPHEN TAB 325 MG TAB PO PRN (09:05)
[2021-01-31] MEDS: ALBUTEROL HFA INHALER INHALATION SCH ×5 (09:56→20:54)
[2021-01-31] MEDS: FLUTICASONE 110 MCG INHALER INHALATION SCH ×3 (09:56→20:55)
[2021-01-31] MEDS: BARICITINIB 2 MG TABLET PO SCH (13:08)
--- NOTE | 2021-01-31 13:34 | P.PN ---
Subjective Progress Note Date: 01/31/21 Principal diagnosis: Dyspnea, hypoxia, COVID-19 pneumonia This is a 75-year-old male patient who follows with Dr. Mauricio Keith is his primary care provider. He has a history of coronary artery disease with previous coronary artery bypass grafting, mitral valve replacement, hy pertension, hyperlipidemia, chronic obstructive pulmonary disease, former smoker, Crohn's disease. On January 17 the patient started having symptoms of fever cough congestion weakness and was tested for COVID-19 on January 18. He found out his results on January 21 and was told to stay home and rest unless his symptoms worsened. He was given doxycycline and prednisone 20 mg twice a day. His brought him into the emergency room here today as his oxygen levels were dropping at home. Chest x-rays revealing patchy bilateral interstitial pneumonia with underlying COPD. White count 2.8. Hemoglobin 12.9. Platelets 149. Lymphocytes 0.2. D-dimer 0.83. Sodium 133. Potassium 4.7. Creatinine 1.06. Glucose 154. AST 122. ALT 75. LDH 1082. C-reactive protein 6.4. Chronic virus by PCR positive. The patient is not vaccinated. He is seen today in the emergency room. Awake and alert in no acute distress. Sitting up on a stretcher. He is 85% O2 saturation on room air. 93% on 2 L per nasal cannula. Afebrile. Hemodynamically stable. He's been initiated on Lovenox and vitamin supplements. He will be started on Decadron. We discussed with him the possibility for Remdesivir which he is reluctant to receive. His who is sitting next to him is also having symptoms and she plans to go get tested today. The patient is seen today 01/24/2021 in follow-up on the observation unit. He is currently sitting up in bed. Awake and alert in no acute distress. He is feeling quite a bit better. Feeling stronger today. He did decline Remdesivir. He has been maintained on Lovenox, Decadron, vitamin supplements. He is currently maintaining O2 saturation in the low 90s on 3 L/m per nasal cannula. He's been afebrile. Hemodynamically stable. Chest x-ray continues to show increased bilateral infiltrates. White count 5.9. Hemoglobin 12.3. D-dimer 0.93. Sodium 134. Potassium 4.1. Creatinine 0.86. Glucose 158. AST 87. ALT 62. LDH 81. C-reactive protein 4.4. On 01/25/2021 patient seen in follow-up on medical surgical floor. He is awake and alert, in no acute distress, breathing comfortably, although still has a persistent cough, does have exertional dyspnea. He is currently on 4 L of oxygen and his pulse ox is borderline between 87-92%. No fever or chills, blood pressure is been stable, patient has been ambulate into the bathroom. Today's chest x-ray shows progressive changes in the lungs with increasing bilateral infiltrates. Patient remains on Decadron 6 mg daily, prophylactic Lovenox, he is on inhaled [place] dilators, he is on COVID-19 vitamins. His labs from yesterday showed a d-dimer of 0.93, electrolytes and renal profile were fairly unremarkable, his AST and ALT were improving and were down to 87 and 62 respectively, his inflammatory markers showed a trend for improvement with LDH at 881, and CRP of 4.4. On 01/27/2021 patient seen in follow-up on medical surgical floor. Patient's hypoxia has significantly progressed in the last 24-48 hours, and he is currently up to 15 L per high flow nasal cannula and nonrebreather mask, and his pulse ox is 94-95%, he is also more dyspneic on today's exam, no fever, vital signs have been stable other than progressive hypoxia. CT angiogram of the chest showed no evidence of pulmonary embolism, and extensive pulmonary infiltrates, underlying emphysema. Lower extremity Dopplers were negative for DVT. Today's labs have been reviewed, his white blood cell count is 11.8, hemoglobin is 10.5, his d-dimer on yesterday's labs was increased to 12.66 without evidence of PE or DVT, his LDH is still pending for today, and his CRP was 7.3. Pro-A Level Was Negative. he had previously refused Remdesivir, we discussed starting Baricitinib for him and patient is agreeable to try it. On 01/28/2021 patient is seen in follow-up on medical surgical floor. His oxygen demand has remained relatively stable over the last 24 hours, she remains on the same 15 L per high flow nasal cannula and nonrebreather mask at 100%, his pulse ox is ranging between 85-93%, does not appear to be in any acute distress. Looks a bit tired, denies any chest discomfort, his been afebrile, mild cough, no phlegm production. Patient continues on Baricitinib, he is on Decadron, he is on prophylactic Lovenox, today's d-dimer was greater than 34.1. His CT angiogram of the chest and lower extremity Dopplers were negative for PE and DVT. His white blood cell count is 10.2, hemoglobin is 11.4, sodium is 136, dress electrolytes were unremarkable, his renal function took little bump and BUN was up to 43 and creatinine was 1.29 on today's labs. His inflammatory markers are still pending for today, CRP has increased to 17.9. Tolerating ortal intake, no nausea or vomiting, his appetite is good. On 01/29/2021 patient seen in follow-up on medical surgical floor, yesterday he was on increasing amount of oxygen, at 15 L and [place] nonrebreather mask, he was looking fatigued, overnight his hypoxia had progressed, rapid response team was called this morning, for worsening hypoxia, and his pulse ox was only in the 70s on the above mentioned oxygen, patient was placed on BiPAP support with pressures of 12.6 on FiO2 of 90%, O2 saturations has improved, up to 96%, and subsequently FiO2 has been dropped down to 65% and patient is maintaining O2 saturation of 91%. Has been afebrile, hemodynamically stable, he remains on Baricitinib, remains on Decadron, his d-dimer is persistently elevated at 34.1, there was no evidence of PE on the CTA chest from a few days ago, his renal function remains impaired, and worse on today's labs, with BUN up to 67 and creatinine of 1.61. He remains on prophylactic dose Lovenox, we will repeat lower extremity Dopplers today. Otherwise fairly stable, but remains a high risk for further deterioration in his clinical condition. On 01/30/2021 patient seen in follow-up on medical surgical floor, he remains on BiPAP support with pressures of 12 and 6 and FiO2 is currently at 80%. His O2 saturations are ranging between 87-96%, he states his breathing is improved, he is less dyspneic and less tachypneic. He is tolerating BiPAP support quite well, he is awake and alert, he sitting up in the recliner, his been afebrile, hemodynamically he has been stable, continues to have a cough, at times he is able to bring up some phlegm and at times it is blood tinged according to the patient. His d-dimer was significantly elevated on yesterday's labs, lower extremity Dopplers showed no evidence of DVT, and patient continues on prophylactic dose Lovenox 40 mg daily, he is on Baricitinib, and Decadron 6 mg daily. Today's labs have been reviewed, his white blood cell count is 10.4, hemoglobin is 9.8, platelet count is 145, electrolytes are within normal limits, renal function has improved on BUN is down to 59 and creatinine is 1.4, his AST and ALT are improving, alkaline phosphatase is 184, slightly increased, his LDH and CRP are still pending for today. His appetite is good, and patient is able to remove the BiPAP mask and reapplied in between bites. He 100% of his lunch. He was on face time with his , and I updated the patient's on his prog ress and the plan of care. She was concerned about his nutrition and we will add ensure 3 times a day with meals to supplement his nutrition On 01/31/2021 patient is seen in follow-up on medical surgical floor. Patient remains on BiPAP with pressures of 12 and 6 and 100% and his pulse ox is 93-98%. He is breathing comfortably, he states he did tolerate high flow nasal cannula briefly yesterday, he is awake and alert, denies acute distress however he is dyspneic with talking, and it's difficult for him to talk while on BiPAP. He is on face time with his . His appetite is good, he is been able to eat almost 100% of his meals. CTA chest was completed last night showing new partially occlusive embolism in the segmental branch in the right lower lobe with subsegmental extension. And there was persistent bilateral groundglass opacities and organizing consolidations greatest in the lower lungs slightly improved from prior study suggesting improving COVID-19 infection. Patient was started on Eliquis 10 mg twice daily last night. Occasional cough, no hemoptysis, no pleurisy. He continues on Baricitinib, Decadron, and multivitamins. His blood work today was reviewed showing white blood cell count of 13.1, hemoglobin of 10.3, his d-dimer remains elevated at greater than 34.1, electrolytes were unremarkable, his BUN is 56 and creatinine is 1.26, improved from yesterday, his LDH has trended up and is up to 2005, and CRP is 3.5, urinalysis showed trace protein, but no definite sign of infection. Objective - Vital Signs Vital signs: Vital Signs Temp 97.8 F 01/31/21 10:00 Pulse 51 L 01/31/21 10:00 Resp 20 01/31/21 10:00 BP 100/54 01/31/21 10:00 Pulse Ox 98 01/31/21 10:00 Intake & Output 01/30/21 01/31/21 01/31/21 18:59 06:59 18:59 Intake Total 200 300 Output Total 300 600 Balance -300 -400 300 Intake: Oral 200 300 Output: Urine 300 600 Other: Voiding Method Urinal # Voids 2 # Bowel Movements 2 - Exam GENERAL EXAM: Alert, very pleasant, 75-year-old white male, on BiPAP support with pressures of 12 and 6 and FiO2 of 100% HEAD: Normocephalic/atraumatic. EYES: Normal reaction of pupils, equal size. Conjunctiva pink, sclera white. NOSE: Clear with pink turbinates. THROAT: No erythema or exudates. NECK: No masses, no JVD, no thyroid enlargement, no adenopathy. CHEST: No chest wall deformity. Symmetrical expansion. LUNGS: Equal air entry with diffuse bilateral crackles CVS: Regular rate and rhythm, normal S1 and S2, no gallops, no murmurs, no rubs ABDOMEN: Soft, nontender. No hepatosplenomegaly, normal bowel sounds, no guarding or rigidity. EXTREMITIES: No clubbing, no edema, no cyanosis, 2+ pulses and upper and lower extremities. MUSCULOSKELETAL: Muscle strength and tone normal. SPINE: No scoliosis or deformity SKIN: No rashes CENTRAL NERVOUS SYSTEM: Alert and oriented -3. No focal deficits, tone is normal in all 4 extremities. PSYCHIATRIC: Alert and oriented -3. Appropriate affect. Intact judgment and insight. - Labs CBC & Chem 7: 01/31/21 06:25 01/31/21 06:25 Labs: Abnormal Lab Results - Last 24 Hours (Table) 01/30/21 01/31/21 01/31/21 Range/Units 22:42 06:25 06:25 WBC (3.8-10.6) k/uL RBC (4.30-5.90) m/uL Hgb (13.0-17.5) gm/dL Hct (39.0-53.0) % Neutrophils # (1.3-7.7) k/uL Lymphocytes # (1.0-4.8) k/uL D-Dimer >34.10 H (<0.60) mg/L FEU Sodium 136 L (137-145) mmol/L BUN 56 H (9-20) mg/dL Creatinine 1.26 H (0.66-1.25) mg/dL Calcium 8.3 L (8.4-10.2) mg/dL AST 71 H (17-59) U/L Alkaline Phosphatase 173 H (38-126) U/L Lactate Dehydrogenase 2005 H (313-618) U/L C-Reactive Protein 3.5 H (<1.0) mg/dL Total Protein 5.7 L (6.3-8.2) g/dL Albumin 2.7 L (3.5-5.0) g/dL Ur Specific [place] 1.039 H (1.001-1.035) Urine Protein Trace H (Negative) 01/31/21 Range/Units 06:25 WBC 13.1 H (3.8-10.6) k/uL RBC 3.59 L (4.30-5.90) m/uL Hgb 10.3 L (13.0-17.5) gm/dL Hct 31.5 L (39.0-53.0) % Neutrophils # 12.6 H (1.3-7.7) k/uL Lymphocytes # 0.1 L (1.0-4.8) k/uL D-Dimer (<0.60) mg/L FEU Sodium (137-145) mmol/L BUN (9-20) mg/dL Creatinine (0.66-1.25) mg/dL Calcium (8.4-10.2) mg/dL AST (17-59) U/L Alkaline Phosphatase (38-126) U/L Lactate Dehydrogenase (313-618) U/L C-Reactive Protein (<1.0) mg/dL Total Protein (6.3-8.2) g/dL Albumin (3.5-5.0) g/dL Ur Specific [place] (1.001-1.035) Urine Protein (Negative) Assessment and Plan Plan: Assessment: #1. Acute hypoxic respiratory failure secondary to COVID-19 pneumonia. Patient is not nonvaccinated adult, his symptoms started on 01/17/2021. Patient took ivermectin on an outpatient basis prescribed by his [place] doctor. Patient refused Remdesivir. Is currently on Decadron, prophylactic anticoagulation, and COVID-19 vitamins. Patient was started on Baricitinib today on 01/27/2021 in view of progressive hypoxia and patient is on BiPAP support now on 01/29/2021 with pressures of 12 and 6 and FiO2 of 100% #2. Acute right lower lobe partially occlusive PE with subsegmental extension diagnosed by CT angiogram of the chest on 01/30/2021. Patient has been started on Eliquis 10 mg twice daily #3. Elevated inflammatory markers related to the above, slightly improved and worsened again today on 01/31/2021. #4. Elevated transaminases, improving #5. History of COPD with diffuse centrilobar emphysema #6. Former smoker #7. Coronary artery disease with previous coronary artery bypass grafting 4 in 2018 #8. Mitral valve repair #9. Crohn's disease #10. Hypertension #11. History of systolic CHF #12. Elevated d-dimer, and without CT evidence of pulmonary embolism, or DVT on bilateral lower extremity Dopplers #13. Acute kidney injury possibly related to COVID-19 ATN, improving Plan: Continue Baricitinib, today is day 6 of treatment Inflammatory markers have increased on today's labs, d-dimer remains elevated Clinically patient remains on BiPAP requiring 100% FiO2 Does not appear to be in distress, looks a bit tired Continue Decadron, Patient was started on Eliquis 10 mg twice daily for a newly diagnosed right lower lobe pulmonary embolism Continue IV hydration with LR at 125 ML per hour Overall prognosis is guarded We'll obtain follow-up labs, including CBC, BMP and inflammatory markers tomorrow I performed a history & physical examination of the patient and discussed their management with my nurse practitioner, Parvin Arango. I reviewed the nurse practitioner's note and agree with the documented findings and plan of care. Lung sounds are positive for diffuse crackles throughout the lung hernandez. The findings and the impression was discussed with the patient. I attest to the documentation by the nurse practitioner. Time with Patient: Less than 30
--- NOTE | 2021-01-31 15:06 | P.PN ---
Progress Note - Text Progress Note Date: 01/31/21 Hospital course: 74-year-old patient who follows with Dr. Mauricio Keith. Tonic stable medical conditions include hypertension, Crohn's disease, nephrolithiasis, BPH, hypertension, tinnitus, COPD, CAD with bypass. EF of 20-25%. Presented with shortness of breath. Diagnosed with COVID 19 on January 18 symptoms starting 1 day before. He was found to be hypoxic at home. Upon arrival he was 85%. Patient declined treatment with Remdesivir. Patient had been taking ivermectin as outpatient. She requested this to be continued. This was declined by the admitting team as this was not approved treatment. Patient not vaccinated against COVID. She did with subcu Lovenox and dexamethasone. January 24: Patient feeling better. On 3 L nasal cannula. Oral intake fair. Up in a bed. Slight cough. January 25: Sitting up in a recliner. Tired. Has some chest tightness. 92% on 4 L. Oral intake good. January 26: Bit more short of breath. Oxygen requirement: Up to 15 L. Had low-grade fever. Eating about 50-75%. Tired. Up in a chair. January 27: Short of breath. Sitting at the edge of the bed. 15 L nasal cannula. Decreased appetite. January 28: Laying in bed. Tired. Short of breath. On 15 L nonrebreather. Oral intake fair. Started on Baricitinib by pulmonary January 29: Patient is become more short of breath. Placed on BiPAP. Decreased oral intake. Tired. On Baricitinib, dexamethasone. January 30: Sitting up in a chair. Using BiPAP. Short of breath. Decreased oral intake. On Baricitinib) dexamethasone. Acute PE on CT chest. Started on eliquis January 31: Sitting at the edge of the bed. BiPAP. Short of breath. Tired. On eliquis, on Baricitinib, dexamethasone. Review of systems: Was done for constitutional, cardiovascular, GI, pulmonary. relevant finding as above Active Medications Acetaminophen (Acetaminophen Tab 325 Mg Tab) 650 mg PO Q6HR PRN PRN Reason: Fever and/ or Pain Last Admin: 01/31/21 09:05 Dose: 650 mg Documented by: Albuterol Sulfate (Albuterol Hfa Inhaler) 2 puff INHALATION RT-QID [facility] Last Admin: 01/31/21 13:13 Dose: 2 puff Documented by: Albuterol Sulfate (Albuterol Hfa Inhaler) 4 puff INHALATION RT-QID PRN PRN Reason: Shortness Of Breath Or Wheezing Apixaban (Apixaban 5 Mg Tab) 10 mg PO BID [facility]; Protocol Stop: 02/06/21 09:01 Last Admin: 01/31/21 08:21 Dose: 10 mg Documented by: Apixaban (Apixaban 5 Mg Tab) 5 mg PO BID [facility]; Protocol Ascorbic Acid (Ascorbic Acid 500 Mg Tab) 2,000 mg PO DAILY [facility] Last Admin: 01/31/21 08:21 Dose: 2,000 mg Documented by: Aspirin (Aspirin 81 Mg) 81 mg PO DAILY [facility] Last Admin: 01/31/21 08:22 Dose: 81 mg Documented by: Balsalazide (Balsalazide Disodium 750 Mg Capsule) 2,250 mg PO TID [facility] Last Admin: 01/31/21 08:28 Dose: 2,250 mg Documented by: Baricitinib (Baricitinib 2 Mg Tablet) 2 mg PO DAILY@1400 [facility] Stop: 02/09/21 14:01 Last Admin: 01/31/21 13:08 Dose: 2 mg Documented by: Cholecalciferol (Cholecalciferol 125 Mcg (5000 Iu) Tablet) 125 mcg PO DAILY [facility] Last Admin: 01/31/21 08:22 Dose: 125 mcg Documented by: Cyanocobalamin (Cyanocobalamin 500 Mcg Tab) 4,000 mcg PO DAILY [facility] Last Admin: 01/31/21 08:22 Dose: 4,000 mcg Documented by: Dexamethasone (Dexamethasone 2 Mg Tab) 6 mg PO DAILY [facility] Last Admin: 01/31/21 08:21 Dose: 6 mg Documented by: Fluticasone Propionate (Fluticasone 110 Mcg Inhaler) 2 puff INHALATION RT-BID [facility] Last Admin: 01/31/21 10:06 Dose: 2 puff Documented by: Hydralazine HCl (Hydralazine Hcl 25 Mg Tab) 25 mg PO BID [facility] Last Admin: 01/31/21 08:22 Dose: 25 mg Documented by: Lactated Ringer's (Lactated Ringers) 1,000 mls @ 125 mls/hr IV .Q8H [facility] Last Admin: 01/31/21 08:31 Dose: 125 mls/hr Documented by: Metoprolol Tartrate (Metoprolol Tartrate 25 Mg Tab) 25 mg PO BID [facility] Last Admin: 01/31/21 08:22 Dose: 25 mg Documented by: Naloxone HCl (Naloxone 0.4 Mg/Ml 1 Ml Vial) 0.2 mg IV Q2M PRN PRN Reason: Opioid Reversal Tamsulosin HCl (Tamsulosin 0.4 Mg Cap.Er.24h) 0.4 mg PO BID [facility] Last Admin: 01/31/21 08:21 Dose: 0.4 mg Documented by: Zinc Sulfate (Zinc Sulfate 220 Mg Cap) 220 mg PO DAILY [facility] Last Admin: 01/31/21 08:22 Dose: 220 mg Documented by: On examination: VITAL SIGNS: 97.8, 51, 20, 100/54, 98% on BiPAP GENERAL APPEARANCE: Sitting at the edges bed, awake, tired, RESPIRATORY: Respiratory effort increased. PSYCHIATRY: Alert and oriented x3. Mood and affect slightly anxious NEUROLOGICAL: Cranial nerves grossly intact. Moving all 4 limbs Rest of the exam per pulmonary and nursing INVESTIGATIONS, reviewed in the clinical context: January 31: WBC 13.1 COVID 10.3 d-dimer greater than 34 potassium 4.5 creatinine 1.26 CRP 3.5 January 30: WBC 10.4 hemoglobin 9.8 platelets 145 potassium 4.5 creatinine 1.4. AST [address] angiogram for PE [January 30] new [place] occlusive embolism segmental bronchus right lower lobe with segmental extension. Doppler ultrasound [January 29]: Superficial thrombosis in the right lesser saphenous vein. January 29: D-dimer greater than 34 potassium 4.4 BUN 67 creatinine 1.61 AST 174 ALT 73 January 28: WBC 10.2 hemoglobin 11.4 platelets 154 d-dimer greater than 34 sodium 136 potassium 4.9. 43 creatinine 1.29 January 27: WBC 11.8 hemoglobin 10.5 January 26: White count 11.8 hemoglobin 11.5 d-dimer 12.6 CRP 7.3 White count 5.9 hemoglobin 12.3 platelets 162 d-dimer 0.93 potassium 4.1 creatinine 0.86 CRP 4.4 Admission labs: Pro-calcitonin 0.04 Coronavirus [PCR]: Detected D-dimer 0.83 EKG tracing personally reviewed by me-sinus bradycardia. Rate 55 Chest x-ray: biLateral infiltrates Assessment and plan: -Bilateral COVID 19 pneumonitis: Not improving Dexamethasone. Subcu Lovenox. (declined Remdesivir. patient was taking ivermectin at home). Baricitinib started January 28 -Acute pulmonary embolism: New diagnosis eliquis -Acute hypoxic respiratory failure from COVID 19: Not improving On BiPAP 70% -Essential hypertension Lopressor 25 mg twice a day, hydralazine 25 mg twice a day -Chronic Crohn's disease Pentasa 1000 milligrams 3 times a day - nephrolithiasis Follow clinically -Acute kidney injury. Possibly ATN from COVID 19:: Slow to respond *Lactated Ringer's at 1 25 mL an hour. Follow with nephrology -BPH Flomax 0.4 mg twice a day -COPD in a previous smoker Pulmicort -Chronic tinnitus with hearing impairment -CAD with bypass Aspirin, beta billy, Lipitor -Hyperlipidemia Lipitor 40 mg daily -Acute hepatitis: Improving hold Lipitor. Follow LFT BiPAP. Dexamethasone. Eliquis Baricitinib. LR at 125 mL an hour. Follow labs
--- NOTE | 2021-01-31 17:35 | PN ---
PROGRESS NOTE The patient is seen for followup for acute kidney injury. His renal function continues to improve. He has tested positive for COVID-19 PCR. The patient is currently maintained on BiPAP. He is lying flat. He is comfortable, not in any acute distress. EXAMINATION: This morning blood pressure was 100/54, heart rate 51 per minute, he is afebrile. Examination of lower extremities shows trace edema. Lungs and heart are not examined. [employer] M[employer]ATOR exam grossly intact. LAB: Show sodium of 136, potassium 4.5, BUN 56, creatinine 1.26, hemoglobin 10.3 g/dL. ASSESSMENT: 1. Acute kidney injury, nonoliguric, currently improving, mostly prerenal improved with IV hydration. 2. COVID pneumonia maintained on BiPAP, receiving treatment with steroids. 3. Ischemic cardiomyopathy, currently not in failure. 4. History of COPD with diffuse central lobar emphysema. 5. Coronary artery disease with history of coronary artery bypass surgery. PLAN: Continue IV fluids, decrease rate. Repeat labs in a.m. Avoid nephrotoxic agents. MMODL / IJN: [id number] /
[2021-02-01] MEDS: LACTATED RINGERS 1,000 ML IV SCH (04:31)
[2021-02-01 08:54] LABS: Basophils % (A) 0 %; Eosinophils % (A) 0 %; HGB 9.7 gm/dL (13.0-17.5); Lymphocytes # (A) 0.2 k/uL (1.0-4.8); Lymphocytes % (A) 1 %; MCH 28.8 pg (25.0-35.0); MCHC 32.4 g/dL (31.0-37.0); MCV 88.9 fL (80.0-100.0); Mean Platelet Volume 8.3; Monocytes # (A) 0.2 k/uL (0-1.0); Monocytes % (A) 1 %; Neutrophils # (A) 16.3 k/uL (1.3-7.7); Neutrophils % (A) 98 %; Platelet Count 164 k/uL (150-450); RBC 3.37 m/uL (4.30-5.90); RDW 14.5 % (11.5-15.5); WBC 16.7 k/uL (3.8-10.6)
[2021-02-01] MEDS: FLUTICASONE 110 MCG INHALER INHALATION SCH ×2 (09:00→21:36)
[2021-02-01] MEDS: ALBUTEROL HFA INHALER INHALATION SCH ×4 (09:00→21:36)
[2021-02-01] MEDS: ASCORBIC ACID 500 MG TAB PO SCH ×2 (09:08→12:10)
[2021-02-01] MEDS: dexAMETHasone 2 MG TAB PO SCH (09:08)
[2021-02-01 09:09] LABS: ALT 35 U/L (4-49); AST 66 U/L (17-59); African American GFR (CKD) 64 (>60 ml/min/1.73 sqM); Albumin 2.5 g/dL (3.5-5.0); Albumin/Globulin Ratio 0.9; Alkaline Phosphatase 205 U/L (38-126); Anion Gap 7 mmol/L; Blood Urea Nitrogen 45 mg/dL (9-20); Calcium 8.4 mg/dL (8.4-10.2); Carbon Dioxide 28 mmol/L (22-30); Chloride 100 mmol/L (98-107); Globulin 2.8 g/dL; Glucose 75 mg/dL (74-99); Non-African American GFR(CKD) 56 (>60 ml/min/1.73 sqM); Potassium 4.4 mmol/L (3.5-5.1); Sodium 135 mmol/L (137-145); Total Bilirubin 0.8 mg/dL (0.2-1.3); Total Protein 5.3 g/dL (6.3-8.2)
[2021-02-01] MEDS: CYANOCOBALAMIN 500 MCG TAB PO SCH ×2 (09:09→12:10)
[2021-02-01] MEDS: hydrALAZINE HCL 25 MG TAB PO SCH ×2 (09:16→21:09)
[2021-02-01] MEDS: CHOLECALCIFEROL 125 MCG (5000 IU) TABLET PO SCH ×2 (09:16→12:10)
[2021-02-01] MEDS: BALSALAZIDE DISODIUM 750 MG CAPSULE PO SCH ×3 (09:16→21:08)
[2021-02-01] MEDS: ASPIRIN 81 MG PO SCH (09:16)
[2021-02-01] MEDS: TAMSULOSIN 0.4 MG CAP.ER.24H PO SCH ×2 (09:17→21:09)
[2021-02-01] MEDS: ZINC SULFATE 220 MG CAP PO SCH ×2 (09:17→12:10)
[2021-02-01] MEDS: APIXABAN 5 MG TAB PO SCH ×2 (09:17→21:10)
[2021-02-01] MEDS: METOPROLOL TARTRATE 25 MG TAB PO SCH ×2 (09:17→21:09)
[2021-02-01 09:31] LABS: LDH 2079 U/L (313-618)
[2021-02-01] MEDS: BARICITINIB 2 MG TABLET PO SCH (13:03)
--- NOTE | 2021-02-01 15:09 | P.PN ---
Subjective Progress Note Date: 02/01/21 Principal diagnosis: Shortness of breath. On 01/25/2021 patient seen in follow-up on medical surgical floor. He is awake and alert, in no acute distress, breathing comfortably, although still has a persistent cough, does have exertional dyspnea. He is currently on 4 L of oxyge n and his pulse ox is borderline between 87-92%. No fever or chills, blood pressure is been stable, patient has been ambulate into the bathroom. Today's chest x-ray shows progressive changes in the lungs with increasing bilateral infiltrates. Patient remains on Decadron 6 mg daily, prophylactic Lovenox, he is on inhaled [place] dilators, he is on COVID-19 vitamins. His labs from yesterday showed a d-dimer of 0.93, electrolytes and renal profile were fairly unremarkable, his AST and ALT were improving and were down to 87 and 62 respectively, his inflammatory markers showed a trend for improvement with LDH at 881, and CRP of 4.4. On 01/27/2021 patient seen in follow-up on medical surgical floor. Patient's hypoxia has significantly progressed in the last 24-48 hours, and he is currently up to 15 L per high flow nasal cannula and nonrebreather mask, and his pulse ox is 94-95%, he is also more dyspneic on today's exam, no fever, vital signs have been stable other than progressive hypoxia. CT angiogram of the chest showed no evidence of pulmonary embolism, and extensive pulmonary infi ltrates, underlying emphysema. Lower extremity Dopplers were negative for DVT. Today's labs have been reviewed, his white blood cell count is 11.8, hemoglobin is 10.5, his d-dimer on yesterday's labs was increased to 12.66 without evidence of PE or DVT, his LDH is still pending for today, and his CRP was 7.3. Pro-A Level Was Negative. he had previously refused Remdesivir, we discussed starting Baricitinib for him and patient is agreeable to try it. On 01/28/2021 patient is seen in follow-up on medical surgical floor. His oxygen demand has remained relatively stable over the last 24 hours, she remains on the same 15 L per high flow nasal cannula and nonrebreather mask at 100%, his pulse ox is ranging between 85-93%, does not appear to be in any acute distress. Looks a bit tired, denies any chest discomfort, his been afebrile, mild cough, no phlegm production. Patient continues on Baricitinib, he is on Decadron, he is on prophylactic Lovenox, today's d-dimer was greater than 34.1. His CT angiogram of the chest and lower extremity Dopplers were negative for PE and DVT. His white blood cell count is 10.2, hemoglobin is 11.4, sodium is 136, dress electrolytes were unremarkable, his renal function took little bump and BUN was up to 43 and creatinine was 1.29 on today's labs. His inflammatory markers are still pending for today, CRP has increased to 17.9. Tolerating ortal intake, no nausea or vomiting, his appetite is good. On 01/29/2021 patient seen in follow-up on medical surgical floor, yesterday he was on increasing amount of oxygen, at 15 L and [place] nonrebreather mask, he was looking fatigued, overnight his hypoxia had progressed, rapid response team was called this morning, for worsening hypoxia, and his pulse ox was only in the 70s on the above mentioned oxygen, patient was placed on BiPAP support with pressures of 12.6 on FiO2 of 90%, O2 saturations has improved, up to 96%, and subsequently FiO2 has been dropped down to 65% and patient is maintaining O2 saturation of 91%. Has been afebrile, hemodynamically stable, he remains on Baricitinib, remains on Decadron, his d-dimer is persistently elevated at 34.1, there was no evidence of PE on the CTA chest from a few days ago, his renal function remains impaired, and worse on today's labs, with BUN up to 67 and creatinine of 1.61. He remains on prophylactic dose Lovenox, we will repeat lower extremity Dopplers today. Otherwise fairly stable, but remains a high risk for further deterioration in his clinical condition. On 01/30/2021 patient seen in follow-up on medical surgical floor, he remains on BiPAP support with pressures of 12 and 6 and FiO2 is currently at 80%. His O2 saturations are ranging between 87-96%, he states his breathing is improved, he is less dyspneic and less tachypneic. He is tolerating BiPAP support quite well, he is awake and alert, he sitting up in the recliner, his been afebrile, hemodynamically he has been stable, continues to have a cough, at times he is able to bring up some phlegm and at times it is blood tinged according to the patient. His d-dimer was significantly elevated on yesterday's labs, lower extremity Dopplers showed no evidence of DVT, and patient continues on prophylactic dose Lovenox 40 mg daily, he is on Baricitinib, and Decadron 6 mg daily. Today's labs have been reviewed, his white blood cell count is 10.4, hemoglobin is 9.8, platelet count is 145, electrolytes are within normal limits, renal function has improved on BUN is down to 59 and creatinine is 1.4, his AST and ALT are improving, alkaline phosphatase is 184, slightly increased, his LDH and CRP are still pending for today. His appetite is good, and patient is able to remove the BiPAP mask and reapplied in between bites. He 100% of his lunch. He was on face time with his , and I updated the patient's on his progress and the plan of care. She was concerned about his nutrition and we will add ensure 3 times a day with meals to supplement his nutrition On 01/31/2021 patient is seen in follow-up on medical surgical floor. Patient remains on BiPAP with pressures of 12 and 6 and 100% and his pulse ox is 93-98%. He is breathing comfortably, he states he did tolerate high flow nasal cannula briefly yesterday, he is awake and alert, denies acute distress however he is dyspneic with talking, and it's difficult for him to talk while on BiPAP. He is on face time with his . His appetite is good, he is been able to eat almost 100% of his meals. CTA chest was completed last night showing new partially occlusive embolism in the segmental branch in the right lower lobe with subsegmental extension. And there was persistent bilateral groundglass opacities and organizing consolidations greatest in the lower lungs slightly improved from prior study suggesting improving COVID-19 infection. Patient was started on Eliquis 10 mg twice daily last night. Occasional cough, no hemoptysis, no pleurisy. He continues on Baricitinib, Decadron, and multivitamins. His blood work today was reviewed showing white blood cell count of 13.1, hemoglobin of 10.3, his d-dimer remains elevated at greater than 34.1, electrolytes were unremarkable, his BUN is 56 and creatinine is 1.26, improved from yesterday, his LDH has trended up and is up to 2004, and CRP is 3.5, urinalysis showed trace protein, but no definite sign of infection. Progress note dated 02/01/2021. 75-year-old male, seen again on February 01, and room 469. The patient is currently on BiPAP. Settings include IPAP 12, EPAP 6, and 100% oxygen. The patient's getting lactated Ringer's as per nephrology, at 50 mL an hour. Currently, the patient's doing about the same today as he did yesterday. Labs are reviewed, and his white count 16.7, hemoglobin 9.7, hematocrit 30, platelet count 164,000. Patient's d-dimer was greater than 34. Sodium 135, potassium 4.4, chlorides 100, CO2 28, anion gap 7, BUN 45, and creatinine 1.27. His LDH is 2079. His C-reactive protein is 6. The patient's CT angiogram performed on January 30 shows new partially occlusive embolism, segmental branch, right lower lobe with subsegmental extension. In addition, diffuse patchy groundglass opacities consistent with coronavirus pneumonia are noted. Objective - Vital Signs Vital signs: Vital Signs Temp 98.4 F 02/01/21 09:13 Pulse 87 02/01/21 09:13 Resp 24 02/01/21 09:13 BP 100/37 02/01/21 09:13 Pulse Ox 91 L 02/01/21 09:13 Intake & Output 01/31/21 02/01/21 02/01/21 18:59 06:59 18:59 Intake Total 2494 Output Total 950 Balance 2494 -950 Intake: Intake, IV Titration 560 Amount Lactated Ringers 1,000 ml 560 @ 70 mls/hr IV .[id number] [facility] Rx#:[id number] Oral 1934 Output: Urine 950 Other: Voiding Method Urinal Urinal # Voids 7 4 # Bowel Movements 4 0 - Exam No respiratory distress, currently on BiPAP. HEENT examination is grossly unremarkable. Neck supple. Full range of motion. No adenopathy thyromegaly or neck vein distention. Cardiovascular examination reveals regular rhythm rate. S1-S2 normal. No S3 or S4. No discernible murmur noted. Heart rate 90 bpm. Heart sounds are distant. Lungs reveal diffuse bilateral crackles. Breath sounds equal bilaterally. No rhonchi or wheezes. Saturations are 96%. Abdomen soft bowel sounds are heard. No masses or tenderness. Extremities are intact. No cyanosis clubbing or edema. Skin is without rash or lesion. Neurologic examination is brief but nonfocal. - Labs CBC & Chem 7: 02/01/21 07:56 02/01/21 07:56 Labs: Abnormal Lab Results - Last 24 Hours (Table) 02/01/21 02/01/21 02/01/21 Range/Units 07:56 07:56 07:56 WBC 16.7 H (3.8-10.6) k/uL RBC 3.37 L (4.30-5.90) m/uL Hgb 9.7 L (13.0-17.5) gm/dL Hct 30.0 L (39.0-53.0) % Neutrophils # 16.3 H (1.3-7.7) k/uL Lymphocytes # 0.2 L (1.0-4.8) k/uL D-Dimer >34.10 H (<0.60) mg/L FEU Sodium 135 L (137-145) mmol/L BUN 45 H (9-20) mg/dL Creatinine 1.27 H (0.66-1.25) mg/dL AST 66 H (17-59) U/L Alkaline Phosphatase 205 H (38-126) U/L Lactate Dehydrogenase 2079 H (313-618) U/L C-Reactive Protein 6.0 H (<1.0) mg/dL Total Protein 5.3 L (6.3-8.2) g/dL Albumin 2.5 L (3.5-5.0) g/dL Assessment and Plan Assessment: #1. Acute hypoxic respiratory failure secondary to COVID-19 pneumonia. Patient is not nonvaccinated adult, his symptoms started on 01/17/2021. Patient took ivermectin on an outpatient basis prescribed by his [place] doctor. Patient refused Remdesivir. Is currently on Decadron, prophylactic anticoagulation, and COVID-19 vitamins. Patient was started on Baricitinib today on 01/27/2021 in view of progressive hypoxia and patient is on BiPAP support now on 01/29/2021 with pressures of 12 and 6 and FiO2 of 100%. #2. Acute right lower lobe partially occlusive PE with subsegmental extension diagnosed by CT angiogram of the chest on 01/30/2021. Patient has been started on Eliquis 10 mg twice daily. #3. Elevated inflammatory markers related to the above, slightly improved and worsened again today on 01/31/2021. #4. Elevated transaminases, improving. #5. History of COPD with diffuse centrilobar emphysema. #6. Former smoker. #7. Coronary artery disease with previous coronary artery bypass grafting 4 in 2018. #8. Mitral valve repair. #9. Crohn's disease. #10. Hypertension. #11. History of systolic CHF. #12. Elevated d-dimer, and without CT evidence of pulmonary embolism, or DVT on bilateral lower extremity Dopplers. #13. Acute kidney injury possibly related to COVID-19 ATN, improving. Plan: Plan dated 02/01/2021. The patient will continue on RADHA, day #7. The patient was discovered to have a pulmonary embolism, right lower lobe. The patient was started on Eliquis. The patient continues on other appropriate medications including vitamin C, vitamin D3, and zinc. In addition, the patient remains on Decadron 6 mg a day. We will continue to follow and make recommendations were appropriate. Overall prognosis remains very guarded. The patient remains on BiPAP at 12/6 and 100%. The patient's getting lactated Ringer's at 50 mL now as per nephrology. Time with Patient: Less than 30
--- NOTE | 2021-02-01 15:55 | P.PN ---
Progress Note - Text Progress Note Date: 02/01/21 Hospital course: 74-year-old patient who follows with Dr. Mauricio Keith. Tonic stable medical conditions include hypertension, Crohn's disease, nephrolithiasis, BPH, hypertension, tinnitus, COPD, CAD with bypass. EF of 20-25%. Presented with shortness of breath. Diagnosed with COVID 19 on January 18 symptoms starting 1 day before. He was found to be hypoxic at home. Upon arrival he was 85%. Patient declined treatment with Remdesivir. Patient had been taking ivermectin as outpatient. She requested this to be continued. This was declined by the admitting team as this was not approved treatment. Patient not vaccinated against COVID. She did with subcu Lovenox and dexamethasone. January 24: Patient feeling better. On 3 L nasal cannula. Oral intake fair. Up in a bed. Slight cough. January 25: Sitting up in a recliner. Tired. Has some chest tightness. 92% on 4 L. Oral intake good. January 26: Bit more short of breath. Oxygen requirement: Up to 15 L. Had low-grade fever. Eating about 50-75%. Tired. Up in a chair. January 27: Short of breath. Sitting at the edge of the bed. 15 L nasal cannula. Decreased appetite. January 28: Laying in bed. Tired. Short of breath. On 15 L nonrebreather. Oral intake fair. Started on Baricitinib by pulmonary January 29: Patient is become more short of breath. Placed on BiPAP. Decreased oral intake. Tired. On Baricitinib, dexamethasone. January 30: Sitting up in a chair. Using BiPAP. Short of breath. Decreased oral intake. On Baricitinib) dexamethasone. Acute PE on CT chest. Started on eliquis January 31: Sitting at the edge of the bed. BiPAP. Short of breath. Tired. On eliquis, on Baricitinib, dexamethasone. February 01: Laying in bed. Short of breath. BiPAP. Tired. On Baricitinib, dexamethasone, eliquis. Eating reasonably well. Review of systems: Was done for constitutional, cardiovascular, GI, pulmonary. relevant finding as above Active Medications Acetaminophen (Acetaminophen Tab 325 Mg Tab) 650 mg PO Q6HR PRN PRN Reason: Fever and/ or Pain Last Admin: 01/31/21 09:05 Dose: 650 mg Documented by: Albuterol Sulfate (Albuterol Hfa Inhaler) 2 puff INHALATION RT-QID [facility] Last Admin: 02/01/21 12:53 Dose: 2 puff Documented by: Albuterol Sulfate (Albuterol Hfa Inhaler) 4 puff INHALATION RT-QID PRN PRN Reason: Shortness Of Breath Or Wheezing Apixaban (Apixaban 5 Mg Tab) 10 mg PO BID [facility]; Protocol Stop: 02/06/21 09:01 Last Admin: 02/01/21 09:17 Dose: 10 mg Documented by: Apixaban (Apixaban 5 Mg Tab) 5 mg PO BID [facility]; Protocol Ascorbic Acid (Ascorbic Acid 500 Mg Tab) 2,000 mg PO DAILY [facility] Last Admin: 02/01/21 12:10 Dose: Not Given Documented by: Aspirin (Aspirin 81 Mg) 81 mg PO DAILY [facility] Last Admin: 02/01/21 09:16 Dose: 81 mg Documented by: Balsalazide (Balsalazide Disodium 750 Mg Capsule) 2,250 mg PO TID [facility] Last Admin: 02/01/21 09:16 Dose: 2,250 mg Documented by: Baricitinib (Baricitinib 2 Mg Tablet) 2 mg PO DAILY@1400 [facility] Stop: 02/09/21 14:01 Last Admin: 02/01/21 13:03 Dose: 2 mg Documented by: Cholecalciferol (Cholecalciferol 125 Mcg (5000 Iu) Tablet) 125 mcg PO DAILY [facility] Last Admin: 02/01/21 12:10 Dose: Not Given Documented by: Cyanocobalamin (Cyanocobalamin 500 Mcg Tab) 4,000 mcg PO DAILY [facility] Last Admin: 02/01/21 12:10 Dose: Not Given Documented by: Dexamethasone (Dexamethasone 2 Mg Tab) 6 mg PO DAILY [facility] Last Admin: 02/01/21 09:08 Dose: 6 mg Documented by: Fluticasone Propionate (Fluticasone 110 Mcg Inhaler) 2 puff INHALATION RT-BID [facility] Last Admin: 02/01/21 09:00 Dose: 2 puff Documented by: Hydralazine HCl (Hydralazine Hcl 25 Mg Tab) 25 mg PO BID [facility] Last Admin: 02/01/21 09:16 Dose: 25 mg Documented by: Metoprolol Tartrate (Metoprolol Tartrate 25 Mg Tab) 25 mg PO BID [facility] Last Admin: 02/01/21 09:17 Dose: 25 mg Documented by: Naloxone HCl (Naloxone 0.4 Mg/Ml 1 Ml Vial) 0.2 mg IV Q2M PRN PRN Reason: Opioid Reversal Tamsulosin HCl (Tamsulosin 0.4 Mg Cap.Er.24h) 0.4 mg PO BID [facility] Last Admin: 02/01/21 09:17 Dose: 0.4 mg Documented by: Zinc Sulfate (Zinc Sulfate 220 Mg Cap) 220 mg PO DAILY [facility] Last Admin: 02/01/21 12:10 Dose: Not Given Documented by: On examination: VITAL SIGNS: 99.2, 59, 22, 1 10 x 46, 98% on BiPAP GENERAL APPEARANCE: Laying in bed awake, tired, RESPIRATORY: Respiratory effort increased. PSYCHIATRY: Alert and oriented x3. Mood and affect slightly anxious NEUROLOGICAL: Cranial nerves grossly intact. Moving all 4 limbs Rest of the exam per pulmonary and nursing INVESTIGATIONS, reviewed in the clinical context: February 01: White count 16.7 hemoglobin 9.7 d-dimer greater than 34 BUN 45 creatinine 1.27 January 31: WBC 13.1 COVID 10.3 d-dimer greater than 34 potassium 4.5 creatinine 1.26 CRP 3.5 January 30: WBC 10.4 hemoglobin 9.8 platelets 145 potassium 4.5 creatinine 1.4. AST [address] angiogram for PE [January 30] new [place] occlusive embolism segmental bronchus right lower lobe with segmental extension. Doppler ultrasound [January 29]: Superficial thrombosis in the right lesser saphenous vein. January 29: D-dimer greater than 34 potassium 4.4 BUN 67 creatinine 1.61 AST 174 ALT 73 January 28: WBC 10.2 hemoglobin 11.4 platelets 154 d-dimer greater than 34 sodium 136 potassium 4.9. 43 creatinine 1.29 January 27: WBC 11.8 hemoglobin 10.5 January 26: White count 11.8 hemoglobin 11.5 d-dimer 12.6 CRP 7.3 White count 5.9 hemoglobin 12.3 platelets 162 d-dimer 0.93 potassium 4.1 c reatinine 0.86 CRP 4.4 Admission labs: Pro-calcitonin 0.04 Coronavirus [PCR]: Detected D-dimer 0.83 EKG tracing personally reviewed by me-sinus bradycardia. Rate 55 Chest x-ray: biLateral infiltrates Assessment and plan: -Bilateral COVID 19 pneumonitis: Not improving Dexamethasone. Subcu Lovenox. (declined Remdesivir. patient was taking ivermectin at home). Baricitinib started January 28 -Acute pulmonary embolism: New diagnosis eliquis -Acute hypoxic respiratory failure from COVID 19: Worsening On BiPAP 100% -Essential hypertension Lopressor 25 mg twice a day, hydralazine 25 mg twice a day -Chronic Crohn's disease Pentasa 1000 milligrams 3 times a day - nephrolithiasis Follow clinically -Acute kidney injury. Possibly ATN from COVID 19:: Slow to respond *Lactated Ringer's at 1 25 mL an hour. Follow with nephrology -BPH Flomax 0.4 mg twice a day -COPD in a previous smoker Pulmicort -Chronic tinnitus with hearing impairment -CAD with bypass Aspirin, beta billy, Lipitor -Hyperlipidemia Lipitor 40 mg daily -Acute hepatitis: Improving hold Lipitor. Follow LFT BiPAP. Dexamethasone. Eliquis Baricitinib. Follow labs
--- NOTE | 2021-02-01 17:13 | PN ---
PROGRESS NOTE Patient is seen for followup for acute kidney injury. Renal function has improved, creatinine now down to 1.27 from 1.6 at peak. The patient has underlying COVID-19 infection/pneumonia. He is maintained on IV fluids. PHYSICAL EXAMINATION: On examination today, blood pressure 100/37, heart rate 87 per minute. Patient is afebrile. Examination shows edema trace bilaterally lower extremities. Abdomen is soft, nontender. Patient is currently lying prone. Heart and lungs are not examined. LAB: Show sodium 135, potassium 4.4, chloride 100, BUN 45, creatinine 1.27, hemoglobin 9.7 g/dL. ASSESSMENT: 1. Acute kidney injury, ATN, currently improved. 2. COVID pneumonia, maintained on BiPAP, receiving steroids as well. 3. Ischemic cardiomyopathy, currently mildly volume overloaded. We will discontinue the IV fluids. 4. History of COPD with diffuse central lobar emphysema. 5. Coronary artery disease with history of coronary artery bypass surgery. PLAN: Discontinue IV fluids. Continue to avoid nephrotoxic agents. MMODL / IJN: [id number] /
--- NOTE | 2021-02-02 05:58 | XR ---
EXAMINATION TYPE: XR chest 1V DATE OF EXAM: 02/02/2021 COMPARISON: NONE HISTORY: Short of breath TECHNIQUE: 2 view FINDINGS: Single view There is pulmonary interstitial and airspace edema. There are sternal wires. Costophrenic angles are clear. Bony thorax is intact. IMPRESSION: Pulmonary edema is worse than recent exam and consistent with progression of RDS.
[2021-02-02] MEDS: ACETAMINOPHEN TAB 325 MG TAB PO PRN (06:07)
--- NOTE | 2021-02-02 06:15 | P.EN ---
A- team: Indication: Hypoxia, shortness of breath Arrived on Scene to find: Patient in mild to moderate respiratory distress Vital signs reviewed: Upon arrival, SpO2 75% on BiPAP 12/6/100%, BP 120/60, pulse 90 Patient seen and examined at bedside. Patient reports shortness of breath and fatigue General: Ill-appearing male, mild to moderate respiratory distress, [appears at stated age], on Bipap Derm: [warm], [dry] Head: [atraumatic], [normocephalic], [symmetric] Eyes: [EOMI], [no lid lag], [anicteric sclera] Mouth: [no lip lesion], [mucus membranes moist] Cardiovascular: [S1S2 reg], [no murmur], [positive posterior tibial pulse bilateral], Lungs: Scattered rhonchi, or wheezing , muscle use noted Abdominal: [soft], [ nontender to palpation], [no guarding], [no appreciable organomegaly] Ext: [no gross muscle atrophy], [no edema], [no contractures] Neuro: [ CN II-XI grossly intact], [no focal neuro deficits] Psych: [Alert], [oriented], [appropriate affect] Assessment: Acute hypoxic respiratory failure in setting of COVID-19 pneumonia and pulmonary embolism Plan: BiPAP settings increased to 15/7 with subsequent SpO2 89% Case discussed by RN with marketing and public relations manager radiation officer who recommended continued monitoring on [facility] floor at this time Procalcitonin wnl at admission Patient on Eliquis for PE Notified: Primary, Rough And Trueing Machine Operator by RN A Total of 35 minutes of critical care time was spent on the complex care of this patient.
[2021-02-02 07:06] LABS: Basophils % (A) 0 %; Eosinophils % (A) 0 %; HCT 28.5 % (39.0-53.0); Hypochromasia Slight; Lymphocytes # (A) 0.1 k/uL (1.0-4.8); Lymphocytes % (A) 0 %; MCH 28.4 pg (25.0-35.0); MCHC 31.5 g/dL (31.0-37.0); MCV 90.2 fL (80.0-100.0); Mean Platelet Volume 8.6; Monocytes # (A) 0.3 k/uL (0-1.0); Monocytes % (A) 2 %; Neutrophils % (A) 98 %; Platelet Count 184 k/uL (150-450); RBC 3.15 m/uL (4.30-5.90); RDW 14.6 % (11.5-15.5); WBC 18.4 k/uL (3.8-10.6)
[2021-02-02 07:36] LABS: ALT 29 U/L (4-49); AST 77 U/L (17-59); African American GFR (CKD) 70 (>60 ml/min/1.73 sqM); Albumin 2.4 g/dL (3.5-5.0); Albumin/Globulin Ratio 0.9; Alkaline Phosphatase 216 U/L (38-126); Anion Gap 5 mmol/L; Blood Urea Nitrogen 45 mg/dL (9-20); Calcium 8.3 mg/dL (8.4-10.2); Carbon Dioxide 29 mmol/L (22-30); Chloride 101 mmol/L (98-107); Globulin 2.8 g/dL; Glucose 73 mg/dL (74-99); Non-African American GFR(CKD) 61 (>60 ml/min/1.73 sqM); Sodium 135 mmol/L (137-145); Total Bilirubin 1.1 mg/dL (0.2-1.3); Total Protein 5.2 g/dL (6.3-8.2)
[2021-02-02 07:38] LABS: Potassium 4.6 mmol/L (3.5-5.1)
[2021-02-02] MEDS: ALBUTEROL HFA INHALER INHALATION SCH ×4 (09:04→20:50)
[2021-02-02] MEDS: FLUTICASONE 110 MCG INHALER INHALATION SCH ×2 (09:05→20:50)
[2021-02-02] MEDS: APIXABAN 5 MG TAB PO SCH ×2 (09:08→20:44)
[2021-02-02] MEDS: CYANOCOBALAMIN 500 MCG TAB PO SCH (09:15)
[2021-02-02] MEDS: ASCORBIC ACID 500 MG TAB PO SCH (09:15)
[2021-02-02] MEDS: CHOLECALCIFEROL 125 MCG (5000 IU) TABLET PO SCH (09:15)
[2021-02-02] MEDS: ZINC SULFATE 220 MG CAP PO SCH (09:16)
--- NOTE | 2021-02-02 10:40 | P.PN ---
Subjective Patient is seen in follow-up for acute kidney injury. Renal function improving. Good urine output. Patient became hypoxic overnight and BiPAP settings were adjusted. Currently on BiPAP. Hemodynamically stable. Vital signs are stable. General: The patient appeared well nourished and normally developed. HEENT: Head exam is unremarkable. On BiPap. LUNGS: Breath sounds decreased. HEART: Rate and Rhythm are regular. ABDOMEN: Soft, no distention. EXTREMITITES: No edema. Objective - Vital Signs Vital signs: Vital Signs Temp 98.2 F 02/02/21 10:00 Pulse 83 02/02/21 10:00 Resp 24 02/02/21 10:00 BP 112/54 02/02/21 10:00 Pulse Ox 90 L 02/02/21 10:00 Intake & Output 02/01/21 02/02/21 02/02/21 18:59 06:59 18:59 Output Total 400 100 Balance -400 -100 Output: Urine 400 100 Other: Voiding Method Urinal Urinal Urinal # Voids 4 # Bowel Movements 1 1 1 - Labs CBC & Chem 7: 02/02/21 06:11 02/02/21 06:11 Labs: Abnormal Lab Results - Last 24 Hours (Table) 02/02/21 02/02/21 02/02/21 Range/Units 06:11 06:11 06:11 WBC 18.4 H (3.8-10.6) k/uL RBC 3.15 L (4.30-5.90) m/uL Hgb 9.0 L (13.0-17.5) gm/dL Hct 28.5 L (39.0-53.0) % Neutrophils # 18.0 H (1.3-7.7) k/uL Lymphocytes # 0.1 L (1.0-4.8) k/uL D-Dimer >34.10 H (<0.60) mg/L FEU Sodium 135 L (137-145) mmol/L BUN 45 H (9-20) mg/dL Glucose 73 L (74-99) mg/dL Calcium 8.3 L (8.4-10.2) mg/dL AST 77 H (17-59) U/L Alkaline Phosphatase 216 H (38-126) U/L Total Protein 5.2 L (6.3-8.2) g/dL Albumin 2.4 L (3.5-5.0) g/dL Assessment and Plan Plan: Assessment: 1. Acute kidney injury secondary to ATN secondary to infection. Improving. Creatinine 1.17 today. Patient received IV contrast dye on January 26 and 01/30/2021 for CTA. 2. COVID-19 pneumonia maintained on BiPAP. 3. Coronary disease status post CABG. 4. PE maintained on eliquis. 5. Benign hypertension. Stable. Plan: Continue to monitor renal function and urine output. Encouraged oral intake. Wean FiO2.
[2021-02-02 11:30] LABS: ABG Base Excess 9.2 mmol/L; ABG HCO3 32 mmol/L (21-25); ABG Oxygen Saturation 90.3 % (94-97); ABG PCO2 41 mmHg (35-45); ABG TCO2 34 mmol/L (19-24); Allen Test Performed? Yes
[2021-02-02 11:36] LABS: ABG PO2 58 mmHg (83-108)
[2021-02-02] MEDS: hydrALAZINE HCL 25 MG TAB PO SCH ×2 (12:34→20:39)
[2021-02-02] MEDS: dexAMETHasone 2 MG TAB PO SCH (12:34)
[2021-02-02] MEDS: ASPIRIN 81 MG PO SCH (12:34)
[2021-02-02] MEDS: BALSALAZIDE DISODIUM 750 MG CAPSULE PO SCH ×3 (12:34→21:11)
[2021-02-02] MEDS: TAMSULOSIN 0.4 MG CAP.ER.24H PO SCH ×2 (12:35→20:43)
[2021-02-02] MEDS: METOPROLOL TARTRATE 25 MG TAB PO SCH ×2 (12:35→20:44)
[2021-02-02] MEDS ORDERED: BARICITINIB 2 MG TABLET PO SCH (14:00)
[2021-02-02] MEDS ORDERED: FUROSEMIDE 10 MG/ML 4 ML VIAL IV STA (16:05)
--- NOTE | 2021-02-02 16:05 | P.PN ---
Subjective Progress Note Date: 02/02/21 Principal diagnosis: COVID-19 pneumonia This is a 75-year-old male patient who follows with Dr. Mauricio Keith is his primary care provider. He has a history of coronary artery disease with previous coronary artery bypass grafting, mitral valve replacement, hypertension, hyperlipidemia, chronic obstructive pulmonary disease, former smoker, Crohn's disease. On January 17 the patient started having symptoms of fever cough congestion weakness and was tested for COVID-19 on January 18. He found out his results on January 21 and was told to stay home and rest unless his symptoms worsened. He was given doxycycline and prednisone 20 mg twice a day. His brought him into the emergency room here today as his oxygen levels were dropping at home. Chest x-rays revealing patchy bilateral interstitial pneumonia with underlying COPD. White count 2.8. Hemoglobin 12.9. Platelets 149. Lymphocytes 0.2. D-dimer 0.83. Sodium 133. Potassium 4.7. Creatinine 1.06. Glucose 154. AST 122. ALT 75. LDH 1082. C-reactive protein 6.4. Chronic virus by PCR positive. The patient is not vaccinated. He is seen today in the emergency room. Awake and alert in no acute distress. Sitting up on a stretcher. He is 85% O2 saturation on room air. 93% on 2 L per nasal cannula. Afebrile. Hemodynamically stable. He's been initiated on Lovenox and vitamin supplements. He will be started on Decadron. We discussed with him the possibility for Remdesivir which he is reluctant to receive. His who is sitting next to him is also having symptoms and she plans to go get tested today. The patient is seen today 01/24/2021 in follow-up on the observation unit. He is currently sitting up in bed. Awake and alert in no acute distress. He is feeling quite a bit better. Feeling stronger today. He did decline Remdesivir. He has been maintained on Lovenox, Decadron, vitamin supplements. He is currently maintaining O2 saturation in the low 90s on 3 L/m per nasal cannula. He's been afebrile. Hemodynamically stable. Chest x-ray continues to show increased bilateral infiltrates. White count 5.9. Hemoglobin 12.3. D-dimer 0.93. Sodium 134. Potassium 4.1. Creatinine 0.86. Glucose 158. AST 87. ALT 62. LDH 81. C-reactive protein 4.4. The patient is seen today 02/02/2021 in follow-up on the regular medical floor. His oxygen requirements have continued to climb. An A team was called on him this morning. He is currently on BiPAP 15/7 and 100% FiO2 to maintain O2 saturations in the low 90s. Arterial blood gases revealed a pO2 of 58, pCO2 of 41 and a pH is 7.50. He's been afebrile. His x-ray continues to reveal bilateral patchy airspace disease consistent with COVID-19 pneumonia with noted progression. White count 18.4. Hemoglobin 9.0. Lymphocytes 0.1. D-dimer greater than 34. Sodium 135. Potassium 4.6. Creatinine 1.18. AST 77. ALT 29. He is anticoagulated with Eliquis. Remains on Baricitinib. Continued on Decadron and vitamin supplements. Objective - Vital Signs Vital signs: Vital Signs Temp 98.4 F 02/02/21 14:00 Pulse 84 02/02/21 14:00 Resp 28 H 02/02/21 14:00 BP 116/56 02/02/21 14:00 Pulse Ox 92 L 02/02/21 14:00 Intake & Output 02/01/21 02/02/21 02/02/21 18:59 06:59 18:59 Output Total 400 100 Balance -400 -100 Output: Urine 400 100 Other: Voiding Method Urinal Urinal Urinal # Voids 4 # Bowel Movements 1 1 1 - Exam GENERAL EXAM: Alert, 75-year-old gentleman, on BiPAP 15/7 and 100% FiO2, and mild respiratory distress. HEAD: Normocephalic. EYES: Normal reaction of pupils, equal size. NOSE: Clear with pink turbinates. THROAT: No erythema or exudates. NECK: No masses, no JVD. CHEST: No chest wall deformity. LUNGS: Equal air entry with coarse crackles bilaterally. CVS: S1 and S2 normal with no audible murmur, regular rhythm. ABDOMEN: No hepatosplenomegaly, normal bowel sounds, no guarding or rigidity. SPINE: No scoliosis or deformity SKIN: No rashes CENTRAL NERVOUS SYSTEM: No focal deficits, tone is normal in all 4 extremities. EXTREMITIES: There is no peripheral edema. No clubbing, no cyanosis. Peripheral pulses are intact. - Labs CBC & Chem 7: 02/02/21 06:11 02/02/21 06:11 Labs: Abnormal Lab Results - Last 24 Hours (Table) 02/02/21 02/02/21 02/02/21 Range/Units 06:11 06:11 06:11 WBC 18.4 H (3.8-10.6) k/uL RBC 3.15 L (4.30-5.90) m/uL Hgb 9.0 L (13.0-17.5) gm/dL Hct 28.5 L (39.0-53.0) % Neutrophils # 18.0 H (1.3-7.7) k/uL Lymphocytes # 0.1 L (1.0-4.8) k/uL D-Dimer >34.10 H (<0.60) mg/L FEU ABG pH (7.35-7.45) ABG pO2 (83-108) mmHg ABG HCO3 (21-25) mmol/L ABG Total CO2 (19-24) mmol/L ABG O2 Saturation (94-97) % Sodium 135 L (137-145) mmol/L BUN 45 H (9-20) mg/dL Glucose 73 L (74-99) mg/dL Calcium 8.3 L (8.4-10.2) mg/dL AST 77 H (17-59) U/L Alkaline Phosphatase 216 H (38-126) U/L Total Protein 5.2 L (6.3-8.2) g/dL Albumin 2.4 L (3.5-5.0) g/dL 02/02/21 Range/Units 11:13 WBC (3.8-10.6) k/uL RBC (4.30-5.90) m/uL Hgb (13.0-17.5) gm/dL Hct (39.0-53.0) % Neutrophils # (1.3-7.7) k/uL Lymphocytes # (1.0-4.8) k/uL D-Dimer (<0.60) mg/L FEU ABG pH 7.50 H (7.35-7.45) ABG pO2 58 L* (83-108) mmHg ABG HCO3 32 H (21-25) mmol/L ABG Total CO2 34 H (19-24) mmol/L ABG O2 Saturation 90.3 L (94-97) % Sodium (137-145) mmol/L BUN (9-20) mg/dL Glucose (74-99) mg/dL Calcium (8.4-10.2) mg/dL AST (17-59) U/L Alkaline Phosphatase (38-126) U/L Total Protein (6.3-8.2) g/dL Albumin (3.5-5.0) g/dL Assessment and Plan Assessment: 1 Acute hypoxemic respiratory failure secondary to COVID-19 pneumonia. Not vaccinated. Symptoms started 01/17/2021. The patient's symptoms have progressed. Chest x-ray shows worsening bilateral infiltrates. A rapid response team was called on him this morning. Currently on BiPAP 15/7 and 100% FiO2. Receiving Baricitinib. Awaiting transfer to the intensive care unit once a bed is available 2 Elevated inflammatory markers secondary to above 3 Elevated liver enzymes 4 Chronic obstructive pulmonary disease with diffuse central lobar emphysema 5 Former smoker 6 Coronary artery disease with previous coronary artery bypass grafting 2017 7 Mitral valve repair 8 Crohn's disease 9 Hypertension 10 History of systolic congestive heart failure Plan: The patient was seen and evaluated A rapid response team was called on the patient this morning Chest x-ray continues with worsening bilateral infiltrates Now requiring BiPAP 15/7 and 100% FiO2 Informed he may require intubation and mechanical ventilatory support The patient declined Remdesivir when he had previously qualified for it Currently on Baricitinib Continue Lovenox, Decadron, vitamin supplements Give Lasix 40 mg IVP 1 Repeat a pro-calcitonin Prognosis is quite guarded We will continue to follow and make further recommendations based on his clinical status I, the cosigning physician, performed a history & physical examination of the patient. Lungs sounds with crackles in the bilateral lung hernandez. Maintaining O2 saturations in the 90s on BiPAP 12/7 and 100% FiO2. I discussed the assessment and plan of care with my nurse practitioner, Jory Camacho. I attest to the above note as dictated by her.
--- NOTE | 2021-02-02 16:32 | P.PN ---
Progress Note - Text Progress Note Date: 02/02/21 Hospital course: 74-year-old patient who follows with Dr. Mauricio Keith. Tonic stable medical conditions include hypertension, Crohn's disease, nephrolithiasis, BPH, hypertension, tinnitus, COPD, CAD with bypass. EF of 20-25%. Presented with shortness of breath. Diagnosed with COVID 19 on January 18 symptoms starting 1 day before. He was found to be hypoxic at home. Upon arrival he was 85%. Patient declined treatment with Remdesivir. Patient had been taking ivermectin as outpatient. She requested this to be continued. This was declined by the admitting team as this was not approved treatment. Patient not vaccinated against COVID. She did with subcu Lovenox and dexamethasone. January 24: Patient feeling better. On 3 L nasal cannula. Oral intake fair. Up in a bed. Slight cough. January 25: Sitting up in a recliner. Tired. Has some chest tightness. 92% on 4 L. Oral intake good. January 26: Bit more short of breath. Oxygen requirement: Up to 15 L. Had low-grade fever. Eating about 50-75%. Tired. Up in a chair. January 27: Short of breath. Sitting at the edge of the bed. 15 L nasal cannula. Decreased appetite. January 28: Laying in bed. Tired. Short of breath. On 15 L nonrebreather. Oral intake fair. Started on Baricitinib by pulmonary January 29: Patient is become more short of breath. Placed on BiPAP. Decreased oral intake. Tired. On Baricitinib, dexamethasone. January 30: Sitting up in a chair. Using BiPAP. Short of breath. Decreased oral intake. On Baricitinib) dexamethasone. Acute PE on CT chest. Started on eliquis January 31: Sitting at the edge of the bed. BiPAP. Short of breath. Tired. On eliquis, on Baricitinib, dexamethasone. February 01: Laying in bed. Short of breath. BiPAP. Tired. On Baricitinib, dexamethasone, eliquis. Eating reasonably well. February 02: Rather tired short of breath BiPAP 100%. On dexamethasone, eliquis Review of systems: Was done for constitutional, cardiovascular, GI, pulmonary. relevant finding as above Active Medications Acetaminophen (Acetaminophen Tab 325 Mg Tab) 650 mg PO Q6HR PRN PRN Reason: Fever and/ or Pain Last Admin: 02/02/21 06:07 Dose: 650 mg Documented by: Albuterol Sulfate (Albuterol Hfa Inhaler) 2 puff INHALATION RT-QID [facility] Last Admin: 02/02/21 12:02 Dose: 2 puff Documented by: Albuterol Sulfate (Albuterol Hfa Inhaler) 4 puff INHALATION RT-QID PRN PRN Reason: Shortness Of Breath Or Wheezing Apixaban (Apixaban 5 Mg Tab) 10 mg PO BID [facility]; Protocol Stop: 02/06/21 09:01 Last Admin: 02/02/21 09:08 Dose: 10 mg Documented by: Apixaban (Apixaban 5 Mg Tab) 5 mg PO BID [facility]; Protocol Ascorbic Acid (Ascorbic Acid 500 Mg Tab) 2,000 mg PO DAILY [facility] Last Admin: 02/02/21 09:15 Dose: Not Given Documented by: Aspirin (Aspirin 81 Mg) 81 mg PO DAILY [facility] Last Admin: 02/02/21 12:34 Dose: Not Given Documented by: Balsalazide (Balsalazide Disodium 750 Mg Capsule) 2,250 mg PO TID [facility] Last Admin: 02/02/21 12:34 Dose: Not Given Documented by: Baricitinib (Baricitinib 2 Mg Tablet) 4 mg PO DAILY@1400 [facility] Stop: 02/09/21 14:01 Last Admin: 02/02/21 15:24 Dose: 4 mg Documented by: Cholecalciferol (Cholecalciferol 125 Mcg (5000 Iu) Tablet) 125 mcg PO DAILY [facility] Last Admin: 02/02/21 09:15 Dose: Not Given Documented by: Cyanocobalamin (Cyanocobalamin 500 Mcg Tab) 4,000 mcg PO DAILY [facility] Last Admin: 02/02/21 09:15 Dose: Not Given Documented by: Dexamethasone (Dexamethasone 2 Mg Tab) 6 mg PO DAILY [facility] Last Admin: 02/02/21 12:34 Dose: Not Given Documented by: Fluticasone Propionate (Fluticasone 110 Mcg Inhaler) 2 puff INHALATION RT-BID [facility] Last Admin: 02/02/21 09:05 Dose: 2 puff Documented by: Hydralazine HCl (Hydralazine Hcl 25 Mg Tab) 25 mg PO BID [facility] Last Admin: 02/02/21 12:34 Dose: Not Given Documented by: Metoprolol Tartrate (Metoprolol Tartrate 25 Mg Tab) 25 mg PO BID [facility] Last Admin: 02/02/21 12:35 Dose: Not Given Documented by: Naloxone HCl (Naloxone 0.4 Mg/Ml 1 Ml Vial) 0.2 mg IV Q2M PRN PRN Reason: Opioid Reversal Tamsulosin HCl (Tamsulosin 0.4 Mg Cap.Er.24h) 0.4 mg PO BID [facility] Last Admin: 02/02/21 12:35 Dose: Not Given Documented by: Zinc Sulfate (Zinc Sulfate 220 Mg Cap) 220 mg PO DAILY [facility] Last Admin: 02/02/21 09:16 Dose: Not Given Documented by: On examination: VITAL SIGNS: 98.2, 83, 26, 112/54, 90% on BiPAP at 100% GENERAL APPEARANCE: Laying in bed tired, RESPIRATORY: Respiratory effort increased. Accessory muscles of working PSYCHIATRY: Alert and oriented x3. Mood and affect anxious NEUROLOGICAL: Cranial nerves grossly intact. Moving all 4 limbs Rest of the exam per pulmonary and nursing INVESTIGATIONS, reviewed in the clinical context: February 02: White count 18.4 hemoglobin 9. ABG: PH 7.5 pO2 58 creatinine 1.18. Chest x-ray: Worsening February 01: White count 16.7 hemoglobin 9.7 d-dimer greater than 34 BUN 45 creatinine 1.27 January 31: WBC 13.1 COVID 10.3 d-dimer greater than 34 potassium 4.5 creatinine 1.26 CRP 3.5 January 30: WBC 10.4 hemoglobin 9.8 platelets 145 potassium 4.5 creatinine 1.4. AST [address] angiogram for PE [January 30] new Pasia occlusive embolism segmental bronchus right lower lobe with segmental extension. Doppler ultrasound [January 29]: Superficial thrombosis in the right lesser saphenous vein. January 29: D-dimer greater than 34 potassium 4.4 BUN 67 creatinine 1.61 AST 174 ALT 73 January 28: WBC 10.2 hemoglobin 11.4 platelets 154 d-dimer greater than 34 sodium 136 potassium 4.9. 43 creatinine 1.29 January 27: WBC 11.8 hemoglobin 10.5 January 26: White count 11.8 hemoglobin 11.5 d-dimer 12.6 CRP 7.3 White count 5.9 hemoglobin 12.3 platelets 162 d-dimer 0.93 potassium 4.1 creatinine 0.86 CRP 4.4 Admission labs: Pro-calcitonin 0.04 Coronavirus [PCR]: Detected D-dimer 0.83 EKG tracing personally reviewed by me-sinus bradycardia. Rate 55 Chest x-ray: biLateral infiltrates Assessment and plan: -Bilateral COVID 19 pneumonitis: Moderate Dexamethasone. Subcu Lovenox. (declined Remdesivir. patient was taking ivermectin at home). Baricitinib started January 28 -Acute pulmonary embolism: New diagnosis eliquis -Acute hypoxic respiratory failure from COVID 19: Not improving On BiPAP 100% -Essential hypertension Lopressor 25 mg twice a day, hydralazine 25 mg twice a day -Chronic Crohn's disease Pentasa 1000 milligrams 3 times a day - nephrolithiasis Follow clinically -Acute kidney injury. Possibly ATN from COVID 19:: Slow to respond *Lactated Ringer's at 1 25 mL an hour. Follow with nephrology -BPH Flomax 0.4 mg twice a day -COPD in a previous smoker Pulmicort -Chronic tinnitus with hearing impairment -CAD with bypass Aspirin, beta billy, Lipitor -Hyperlipidemia Lipitor 40 mg daily -Acute hepatitis: Improving hold Lipitor. Follow LFT BiPAP. At 100%. Dexamethasone. Eliquis Baricitinib. Prognosis guarded
[2021-02-02 18:25] LABS: ABG Base Excess 10.3 mmol/L; ABG HCO3 33 mmol/L (21-25); ABG Oxygen Saturation 78.6 % (94-97); ABG PCO2 41 mmHg (35-45); ABG PH 7.51 (7.35-7.45); ABG TCO2 35 mmol/L (19-24); Allen Test Performed? Yes
[2021-02-02 18:26] LABS: ABG PO2 41 mmHg (83-108)
[2021-02-02] MEDS ORDERED: propofoL 100 ML IV ONE (18:36)
[2021-02-02 18:39] LABS: Glucose,Whole Blood 85 mg/dL (75-99)
[2021-02-02] MEDS ORDERED: NOREPINEPHRIN 4 MG-0.9% NS PMX 4 MG/250 ML ML IV ONE (19:19)
[2021-02-02] MEDS ORDERED: CISATRACURIUM 2 MG/ML 5 ML VIAL IV ONE ×2 (19:26→19:27)
[2021-02-02] MEDS ORDERED: SODIUM CHLORIDE 0.9% 2,000 ML IV ONE (19:30)
[2021-02-02] MEDS: SODIUM CHLORIDE 0.9% 1,000 ML IV SCH (19:39)
[2021-02-02] MEDS: NOREPINEPHRINE 4 MG in SODIUM CHLORIDE 0.9% 250 ML IV SCH (19:42)
[2021-02-02] MEDS: CISATRACURIUM 200 MG in SODIUM CHLORIDE 0.9% 180 ML IV SCH (19:43)
[2021-02-02 19:59] LABS: ABG Base Excess 6.4 mmol/L; ABG HCO3 33 mmol/L (21-25); ABG Oxygen Saturation 96.5 % (94-97); ABG PCO2 64 mmHg (35-45); ABG PH 7.32 (7.35-7.45); ABG PO2 102 mmHg (83-108); ABG TCO2 35 mmol/L (19-24); Allen Test Performed? Yes
--- NOTE | 2021-02-02 20:02 | XR ---
EXAMINATION TYPE: XR chest 1V portable DATE OF EXAM: 02/02/2021 COMPARISON: Today HISTORY: Respiratory failure TECHNIQUE: Single view FINDINGS: There is endotracheal tube 4.5 cm from the enid. There is nasogastric tube in the stomach . There is patchy moderate pulmonary interstitial and airspace edema. There are sternal wires. There are chest leads. IMPRESSION: Pulmonary edema without change and could relate to RDS.
[2021-02-02] MEDS: CHLORHEXIDINE GLUCONATE 15 ML CUP MUCOUS MEM SCH (20:44)
[2021-02-02] MEDS: ARTIFICIAL TEARS-HYPROMELLOSE DROPS 15 ML BTL BOTH EYES SCH (20:44)
[2021-02-03] MEDS: ARTIFICIAL TEARS-HYPROMELLOSE DROPS 15 ML BTL BOTH EYES SCH ×6 (00:20→19:52)
[2021-02-03 00:25] LABS: Glucose,Whole Blood 88 mg/dL (75-99)
[2021-02-03] MEDS: NOREPINEPHRINE 4 MG in SODIUM CHLORIDE 0.9% 250 ML IV SCH ×3 (01:19→11:41)
[2021-02-03 03:48] LABS: Basophils % (A) 0 %; Eosinophils % (A) 0 %; HCT 28.4 % (39.0-53.0); HGB 8.8 gm/dL (13.0-17.5); Hypochromasia Moderate; Lymphocytes # (A) 0.2 k/uL (1.0-4.8); Lymphocytes % (A) 1 %; MCH 28.6 pg (25.0-35.0); Monocytes # (A) 0.2 k/uL (0-1.0); Monocytes % (A) 1 %; Neutrophils % (A) 98 %; Platelet Count 267 k/uL (150-450); RBC 3.09 m/uL (4.30-5.90); RDW 14.7 % (11.5-15.5); WBC 21.5 k/uL (3.8-10.6)
[2021-02-03 04:10] LABS: Albumin 2.3 g/dL (3.5-5.0); Calcium 7.6 mg/dL (8.4-10.2); Potassium 4.6 mmol/L (3.5-5.1); Total Bilirubin 0.7 mg/dL (0.2-1.3); Total Protein 5.1 g/dL (6.3-8.2)
[2021-02-03 06:06] LABS: ABG Base Excess 5.3 mmol/L; ABG HCO3 33 mmol/L (21-25); ABG Oxygen Saturation 95.1 % (94-97); ABG PH 7.25 (7.35-7.45); ABG PO2 93 mmHg (83-108); ABG TCO2 35 mmol/L (19-24); Allen Test Performed? Yes
[2021-02-03 06:23] LABS: ABG PCO2 74 mmHg (35-45)
--- NOTE | 2021-02-03 06:46 | XR ---
EXAMINATION TYPE: XR chest 1V portable DATE OF EXAM: 02/03/2021 COMPARISON: 02/02/2021 HISTORY: Shortness of breath TECHNIQUE: Single frontal view of the chest is obtained. FINDINGS: There is a prosthetic heart valve and median sternotomy wires. There is an NG tube stomach there is an ET tube approximately 6.2 cm above the enid. There is been no change in the diffuse fluffy small alveolar opacities. There is no pneumothorax or large pleural effusion. IMPRESSION: No interval change in the acute cardiopulmonary process.
[2021-02-03] MEDS: ALBUTEROL HFA INHALER INHALATION SCH ×4 (07:47→20:07)
[2021-02-03] MEDS: FLUTICASONE 110 MCG INHALER INHALATION SCH ×2 (07:48→20:08)
[2021-02-03] MEDS ORDERED: SODIUM CHLORIDE 0.9% 1,000 ML IV ONE (08:09)
[2021-02-03] MEDS: SODIUM CHLORIDE 0.9% 1,000 ML IV SCH ×2 (08:21→19:51)
[2021-02-03] MEDS: hydrALAZINE HCL 25 MG TAB PO SCH ×2 (08:43→21:20)
--- NOTE | 2021-02-03 08:47 | P.PN ---
Subjective Patient is seen in follow-up for acute kidney injury. Renal function a little worse today. Patient went into respiratory distress yesterday and was subsequently intubated. Currently on 70% FiO2. Good urine output. On Levophed. Nonoliguric. Receiving IV fluids. Vital signs are stable. On Levophed. General: The patient appeared well nourished and normally developed. HEENT: Intubated. LUNGS: Breath sounds decreased. HEART: Rate and Rhythm are regular. ABDOMEN: Soft, no distention. EXTREMITITES: No edema. Objective - Vital Signs Vital signs: Vital Signs Temp 98 F 02/03/21 04:00 Pulse 84 02/03/21 07:00 Resp 26 H 02/03/21 07:00 BP 114/60 02/03/21 07:00 Pulse Ox 96 02/03/21 07:00 Intake & Output 02/02/21 02/03/21 02/03/21 18:59 06:59 18:59 Intake Total 2866.794 20 Output Total 300 670 60 Balance -300 2196.794 -40 Weight 72.5 kg Intake: IV 2240 20 Sodium Chloride 0.9% 1, 2240 20 000 ml @ 20 mls/hr IV . Q24H [facility]ERY[facility] Rx#:[id number] Intake, IV Titration 626.794 Amount Norepinephrine 4 mg In 386.565 Sodium Chloride 0.9% 250 ml @ 0.05 MCG/KG/MIN 13. 826 mls/hr IV .[id number] [facility]ERY[facility] Rx#:[id number] propofoL 1,000 mg In 240.229 Empty Bag 1 bag @ Titrate IV .Q0M [facility] Rx#: [id number] Output: Urine 300 670 60 Other: Voiding Method Urinal Indwelling Catheter # Bowel Movements 1 - Labs CBC & Chem 7: 02/03/21 03:15 02/03/21 03:15 Labs: Abnormal Lab Results - Last 24 Hours (Table) 02/02/21 02/02/21 02/02/21 Range/Units 06:11 11:13 18:24 WBC (3.8-10.6) k/uL RBC (4.30-5.90) m/uL Hgb (13.0-17.5) gm/dL Hct (39.0-53.0) % Neutrophils # (1.3-7.7) k/uL Lymphocytes # (1.0-4.8) k/uL ABG pH 7.50 H 7.51 H (7.35-7.45) ABG pCO2 (35-45) mmHg ABG pO2 58 L* 41 L* (83-108) mmHg ABG HCO3 32 H 33 H (21-25) mmol/L ABG Total CO2 34 H 35 H (19-24) mmol/L ABG O2 Saturation 90.3 L 78.6 L (94-97) % Carbon Dioxide (22-30) mmol/L BUN (9-20) mg/dL Creatinine (0.66-1.25) mg/dL Calcium (8.4-10.2) mg/dL AST (17-59) U/L Alkaline Phosphatase (38-126) U/L Total Protein (6.3-8.2) g/dL Albumin (3.5-5.0) g/dL Procalcitonin 0.13 H (0.02-0.09) ng/mL 02/02/21 02/03/21 02/03/21 Range/Units 19:53 03:15 03:15 WBC 21.5 H (3.8-10.6) k/uL RBC 3.09 L (4.30-5.90) m/uL Hgb 8.8 L (13.0-17.5) gm/dL Hct 28.4 L (39.0-53.0) % Neutrophils # 21.0 H (1.3-7.7) k/uL Lymphocytes # 0.2 L (1.0-4.8) k/uL ABG pH 7.32 L (7.35-7.45) ABG pCO2 64 H (35-45) mmHg ABG pO2 (83-108) mmHg ABG HCO3 33 H (21-25) mmol/L ABG Total CO2 35 H (19-24) mmol/L ABG O2 Saturation (94-97) % Carbon Dioxide 31 H (22-30) mmol/L BUN 46 H (9-20) mg/dL Creatinine 1.39 H (0.66-1.25) mg/dL Calcium 7.6 L (8.4-10.2) mg/dL AST 61 H (17-59) U/L Alkaline Phosphatase 202 H (38-126) U/L Total Protein 5.1 L (6.3-8.2) g/dL Albumin 2.3 L (3.5-5.0) g/dL Procalcitonin (0.02-0.09) ng/mL 02/03/21 Range/Units 06:00 WBC (3.8-10.6) k/uL RBC (4.30-5.90) m/uL Hgb (13.0-17.5) gm/dL Hct (39.0-53.0) % Neutrophils # (1.3-7.7) k/uL Lymphocytes # (1.0-4.8) k/uL ABG pH 7.25 L (7.35-7.45) ABG pCO2 74 H* (35-45) mmHg ABG pO2 (83-108) mmHg ABG HCO3 33 H (21-25) mmol/L ABG Total CO2 35 H (19-24) mmol/L ABG O2 Saturation (94-97) % Carbon Dioxide (22-30) mmol/L BUN (9-20) mg/dL Creatinine (0.66-1.25) mg/dL Calcium (8.4-10.2) mg/dL AST (17-59) U/L Alkaline Phosphatase (38-126) U/L Total Protein (6.3-8.2) g/dL Albumin (3.5-5.0) g/dL Procalcitonin (0.02-0.09) ng/mL Microbiology - Last 24 Hours (Table) 02/02/21 19:00 Sputum Culture - Preliminary Sputum Assessment and Plan Plan: Assessment: 1. Acute kidney injury secondary to ATN secondary to infection and hypotension. Creatinine 1.39 today. Patient received IV contrast dye on January 26 and 01/30/2021 for CTA. Nonoliguric. 2. COVID-19 pneumonia. 3. Coronary disease status post CABG. 4. PE maintained on eliquis. 5. Benign hypertension. Currently on Levophed. 6. Acute hypoxic respiratory failure. Plan: Maintain IV fluids. Continue to monitor renal function and urine output. Encouraged oral intake. Wean FiO2 and vasopressors.
[2021-02-03] MEDS: CYANOCOBALAMIN 500 MCG TAB PO SCH (08:50)
[2021-02-03] MEDS: TAMSULOSIN 0.4 MG CAP.ER.24H PO SCH ×2 (08:51→19:52)
[2021-02-03] MEDS: ASCORBIC ACID 500 MG TAB PO SCH (08:51)
[2021-02-03] MEDS: ASPIRIN 81 MG PO SCH (08:53)
[2021-02-03] MEDS: dexAMETHasone 2 MG TAB PO SCH (08:53)
[2021-02-03] MEDS: CHOLECALCIFEROL 125 MCG (5000 IU) TABLET PO SCH (08:54)
[2021-02-03] MEDS: ZINC SULFATE 220 MG CAP PO SCH (08:54)
[2021-02-03] MEDS: CHLORHEXIDINE GLUCONATE 15 ML CUP MUCOUS MEM SCH ×2 (08:54→19:54)
--- NOTE | 2021-02-03 10:33 | XR ---
EXAMINATION TYPE: XR chest 1V portable DATE OF EXAM: 02/03/2021 10:14 AM COMPARISON:Chest radiograph from one day prior. CLINICAL INDICATION:Male, 75 years old with history of line placement; TECHNIQUE: Frontal view of the chest. FINDINGS: Lungs/Pleura: There is no evidence of pleural effusion, focal consolidation, or pneumothorax. Pulmonary vascularity: Pulmonary vascular congestion. Heart/mediastinum: Cardiomediastinal silhouette is partially obscured due to overlying and adjacent o pacities. Musculoskeletal: No acute osseous pathology. Other findings: Midline sternotomy wires and surgical clips project over the mediastinum. Lines/Tubes: Endotracheal tube with distal tip 4.8 cm above the enid Nasogastric tube with its distal tip and side-port projecting under the diaphragm. Left internal jugular central venous catheter with distal tip at the cavoatrial junction. IMPRESSION: 1. Interval placement of left jugular venous catheter with tip remaining in the superior vena cava. 2. Similar moderate to severe pulmonary vascular congestion. 3. Support Tubes in appropriate position.
[2021-02-03] MEDS: METOPROLOL TARTRATE 25 MG TAB PO SCH ×2 (11:33→19:54)
[2021-02-03] MEDS: APIXABAN 5 MG TAB PO SCH ×2 (11:45→19:54)
[2021-02-03 12:00] LABS: Glucose,Whole Blood 92 mg/dL (75-99)
[2021-02-03] MEDS: BALSALAZIDE DISODIUM 750 MG CAPSULE PO SCH ×3 (12:12→19:53)
--- NOTE | 2021-02-03 12:14 | P.PN ---
Subjective Progress Note Date: 02/03/21 Principal diagnosis: Dyspnea, hypoxia, COVID-19 pneumonia This is a 75-year-old male patient who follows with Dr. Mauricio Keith is his primary care provider. He has a history of coronary artery disease with previous coronary artery bypass grafting, mitral valve replacement, hy pertension, hyperlipidemia, chronic obstructive pulmonary disease, former smoker, Crohn's disease. On January 17 the patient started having symptoms of fever cough congestion weakness and was tested for COVID-19 on January 18. He found out his results on January 21 and was told to stay home and rest unless his symptoms worsened. He was given doxycycline and prednisone 20 mg twice a day. His brought him into the emergency room here today as his oxygen levels were dropping at home. Chest x-rays revealing patchy bilateral interstitial pneumonia with underlying COPD. White count 2.8. Hemoglobin 12.9. Platelets 149. Lymphocytes 0.2. D-dimer 0.83. Sodium 133. Potassium 4.7. Creatinine 1.06. Glucose 154. AST 122. ALT 75. LDH 1082. C-reactive protein 6.4. Chronic virus by PCR positive. The patient is not vaccinated. He is seen today in the emergency room. Awake and alert in no acute distress. Sitting up on a stretcher. He is 85% O2 saturation on room air. 93% on 2 L per nasal cannula. Afebrile. Hemodynamically stable. He's been initiated on Lovenox and vitamin supplements. He will be started on Decadron. We discussed with him the possibility for Remdesivir which he is reluctant to receive. His who is sitting next to him is also having symptoms and she plans to go get tested today. The patient is seen today 01/24/2021 in follow-up on the observation unit. He is currently sitting up in bed. Awake and alert in no acute distress. He is feeling quite a bit better. Feeling stronger today. He did decline Remdesivir. He has been maintained on Lovenox, Decadron, vitamin supplements. He is currently maintaining O2 saturation in the low 90s on 3 L/m per nasal cannula. He's been afebrile. Hemodynamically stable. Chest x-ray continues to show increased bilateral infiltrates. White count 5.9. Hemoglobin 12.3. D-dimer 0.93. Sodium 134. Potassium 4.1. Creatinine 0.86. Glucose 158. AST 87. ALT 62. LDH 81. C-reactive protein 4.4. On 01/25/2021 patient seen in follow-up on medical surgical floor. He is awake and alert, in no acute distress, breathing comfortably, although still has a persistent cough, does have exertional dyspnea. He is currently on 4 L of oxygen and his pulse ox is borderline between 87-92%. No fever or chills, blood pressure is been stable, patient has been ambulate into the bathroom. Today's chest x-ray shows progressive changes in the lungs with increasing bilateral infiltrates. Patient remains on Decadron 6 mg daily, prophylactic Lovenox, he is on inhaled [place] dilators, he is on COVID-19 vitamins. His labs from yesterday showed a d-dimer of 0.93, electrolytes and renal profile were fairly unremarkable, his AST and ALT were improving and were down to 87 and 62 respectively, his inflammatory markers showed a trend for improvement with LDH at 881, and CRP of 4.4. On 01/27/2021 patient seen in follow-up on medical surgical floor. Patient's hypoxia has significantly progressed in the last 24-48 hours, and he is currently up to 15 L per high flow nasal cannula and nonrebreather mask, and his pulse ox is 94-95%, he is also more dyspneic on today's exam, no fever, vital signs have been stable other than progressive hypoxia. CT angiogram of the chest showed no evidence of pulmonary embolism, and extensive pulmonary infiltrates, underlying emphysema. Lower extremity Dopplers were negative for DVT. Today's labs have been reviewed, his white blood cell count is 11.8, hemoglobin is 10.5, his d-dimer on yesterday's labs was increased to 12.66 without evidence of PE or DVT, his LDH is still pending for today, and his CRP was 7.3. Pro-A Level Was Negative. he had previously refused Remdesivir, we discussed starting Baricitinib for him and patient is agreeable to try it. On 01/28/2021 patient is seen in follow-up on medical surgical floor. His oxygen demand has remained relatively stable over the last 24 hours, she remains on the same 15 L per high flow nasal cannula and nonrebreather mask at 100%, his pulse ox is ranging between 85-93%, does not appear to be in any acute distress. Looks a bit tired, denies any chest discomfort, his been afebrile, mild cough, no phlegm production. Patient continues on Baricitinib, he is on Decadron, he is on prophylactic Lovenox, today's d-dimer was greater than 34.1. His CT angiogram of the chest and lower extremity Dopplers were negative for PE and DVT. His white blood cell count is 10.2, hemoglobin is 11.4, sodium is 136, dress electrolytes were unremarkable, his renal function took little bump and BUN was up to 43 and creatinine was 1.29 on today's labs. His inflammatory markers are still pending for today, CRP has increased to 17.9. Tolerating ortal intake, no nausea or vomiting, his appetite is good. On 01/29/2021 patient seen in follow-up on medical surgical floor, yesterday he was on increasing amount of oxygen, at 15 L and [place] nonrebreather mask, he was looking fatigued, overnight his hypoxia had progressed, rapid response team was called this morning, for worsening hypoxia, and his pulse ox was only in the 70s on the above mentioned oxygen, patient was placed on BiPAP support with pressures of 12.6 on FiO2 of 90%, O2 saturations has improved, up to 96%, and subsequently FiO2 has been dropped down to 65% and patient is maintaining O2 saturation of 91%. Has been afebrile, hemodynamically stable, he remains on Baricitinib, remains on Decadron, his d-dimer is persistently elevated at 34.1, there was no evidence of PE on the CTA chest from a few days ago, his renal function remains impaired, and worse on today's labs, with BUN up to 67 and creatinine of 1.61. He remains on prophylactic dose Lovenox, we will repeat lower extremity Dopplers today. Otherwise fairly stable, but remains a high risk for further deterioration in his clinical condition. On 01/30/2021 patient seen in follow-up on medical surgical floor, he remains on BiPAP support with pressures of 12 and 6 and FiO2 is currently at 80%. His O2 saturations are ranging between 87-96%, he states his breathing is improved, he is less dyspneic and less tachypneic. He is tolerating BiPAP support quite well, he is awake and alert, he sitting up in the recliner, his been afebrile, hemodynamically he has been stable, continues to have a cough, at times he is able to bring up some phlegm and at times it is blood tinged according to the patient. His d-dimer was significantly elevated on yesterday's labs, lower extremity Dopplers showed no evidence of DVT, and patient continues on prophylactic dose Lovenox 40 mg daily, he is on Baricitinib, and Decadron 6 mg daily. Today's labs have been reviewed, his white blood cell count is 10.4, hemoglobin is 9.8, platelet count is 145, electrolytes are within normal limits, renal function has improved on BUN is down to 59 and creatinine is 1.4, his AST and ALT are improving, alkaline phosphatase is 184, slightly increased, his LDH and CRP are still pending for today. His appetite is good, and patient is able to remove the BiPAP mask and reapplied in between bites. He 100% of his lunch. He was on face time with his , and I updated the patient's on his prog ress and the plan of care. She was concerned about his nutrition and we will add ensure 3 times a day with meals to supplement his nutrition On 01/31/2021 patient is seen in follow-up on medical surgical floor. Patient remains on BiPAP with pressures of 12 and 6 and 100% and his pulse ox is 93-98%. He is breathing comfortably, he states he did tolerate high flow nasal cannula briefly yesterday, he is awake and alert, denies acute distress however he is dyspneic with talking, and it's difficult for him to talk while on BiPAP. He is on face time with his . His appetite is good, he is been able to eat almost 100% of his meals. CTA chest was completed last night showing new partially occlusive embolism in the segmental branch in the right lower lobe with subsegmental extension. And there was persistent bilateral groundglass opacities and organizing consolidations greatest in the lower lungs slightly improved from prior study suggesting improving COVID-19 infection. Patient was started on Eliquis 10 mg twice daily last night. Occasional cough, no hemoptysis, no pleurisy. He continues on Baricitinib, Decadron, and multivitamins. His blood work today was reviewed showing white blood cell count of 13.1, hemoglobin of 10.3, his d-dimer remains elevated at greater than 34.1, electrolytes were unremarkable, his BUN is 56 and creatinine is 1.26, improved from yesterday, his LDH has trended up and is up to 2005, and CRP is 3.5, urinalysis showed trace protein, but no definite sign of infection. On 02/03/2021 patient seen in follow-up in the intensive care unit, he has been intubated yesterday on 02/02/2021 and placed on mechanical ventilator, he is currently on assist control mode of ventilation with a rate of 26, tidal volume was 450, FiO2 of 85% and PEEP of 10. This morning's blood gas shows pO2 of 93, pCO2 74, and pH of 7.25. His rate was subsequently increased to 30, PEEP up to 12 and FiO2 has been dropped down to 70%, he is currently on Diprivan at 50 mics per kilo per minute, IV 0.9 at 20 ML per hour, and norepinephrine at 0.14 mics per kilo per minute, Nimbex is at 2 mics per kilo per minute. Patient's chest x-ray from this morning shows no pneumothorax a large pleural effusion, prosthetic heart valve and median sternotomy wires, pulmonary edema/ARDS. This morning's labs have been reviewed showing white blood cell count of 21.5, hemoglobin of 8.8, platelet count of 267, serum sodium of 137, potassium is 4.6, chloride is 100, CO2 is 31, BUN of 46 creatinine of 1.39, worsened renal function on today's labs, AST was 61, improved, ALT was within normal limits at 27, alkaline phosphatase was 202. His last LDH and CRP were from a couple days ago on 02/01/2021 and were still significantly elevated at 2079 and 6.0 respectively. His last pro-calcitonin from yesterday on 02/02/2021 was 0.13. His urinalysis showed no evidence of infection. Sputum culture has been sent showing no white blood cells and no organisms. Patient has been started on Eliquis for right lower lobe pulmonary embolism discovered on CT angiogram of the chest on 01/30/2021. Patient developed hematuria, he is on Flomax for history of BPH, she remains on oral anticoagulation, and urology service will be consulted. tube feedings have not been started yet Objective - Vital Signs Vital signs: Vital Signs Temp 97.6 F 02/03/21 09:00 Pulse 60 02/03/21 11:00 Resp 30 H 02/03/21 11:00 BP 128/64 02/03/21 11:00 Pulse Ox 93 L 02/03/21 11:00 Intake & Output 02/02/21 02/03/21 02/03/21 18:59 06:59 18:59 Intake Total 2866.794 1516.299 Output Total 300 670 270 Balance -300 2196.794 1246.299 Weight 72.5 kg Intake: IV 2240 40 Sodium Chloride 0.9% 1, 2240 40 000 ml @ 20 mls/hr IV . Q24H CHERYL Rx#:[id number] Intake, IV Titration 280.482 1805.299 Amount Norepinephrine 4 mg In 386.565 151.299 Sodium Chloride 0.9% 250 ml @ 0.05 MCG/KG/MIN 13. 826 mls/hr IV .[id number] CHERYL Rx#:[id number] Sodium Chloride 0.9% 1, 225 000 ml @ 75 mls/hr IV . [id number] [facility]ERYL Rx#:[id number] Sodium Chloride 0.9% 1, 1000 000 ml @ 999 mls/hr IV . Q1H1M ONE Rx#:[id number] propofoL 1,000 mg In 240.229 100 Empty Bag 1 bag @ Titrate IV .Q0M CHERYL Rx#: [id number] Output: Urine 300 670 270 Other: Voiding Method Urinal Indwelling Catheter # Bowel Movements 1 ABP, PAP, CO, CI - Last Documented Arterial Blood Pressure 109/30 - Exam GENERAL EXAM: Intubated, sedated and paralyzed 75-year-old white male, on assist control mode of ventilation with a rate of 26, tidal volume was 450, FiO2 of 85% and PEEP of 10 HEAD: Normocephalic/atraumatic. EYES: Normal reaction of pupils, equal size. Conjunctiva pink, sclera white. NOSE: Clear with pink turbinates. THROAT: No erythema or exudates. NECK: No masses, no JVD, no thyroid enlargement, no adenopathy. CHEST: No chest wall deformity. Symmetrical expansion. LUNGS: Equal air entry with diffuse bilateral crackles CVS: Regular rate and rhythm, normal S1 and S2, no gallops, no murmurs, no rubs ABDOMEN: Soft, nontender. No hepatosplenomegaly, normal bowel sounds, no guarding or rigidity. EXTREMITIES: No clubbing, no edema, no cyanosis, 2+ pulses and upper and lower extremities. MUSCULOSKELETAL: Muscle strength and tone normal. SPINE: No scoliosis or deformity SKIN: No rashes CENTRAL NERVOUS SYSTEM: Intubated, No focal deficits, tone is normal in all 4 extremities. PSYCHIATRIC: Sedated, paralyzed - Labs CBC & Chem 7: 02/03/21 03:15 02/03/21 03:15 Labs: Abnormal Lab Results - Last 24 Hours (Table) 02/02/21 02/02/21 02/02/21 Range/Units 06:11 18:24 19:53 WBC (3.8-10.6) k/uL RBC (4.30-5.90) m/uL Hgb (13.0-17.5) gm/dL Hct (39.0-53.0) % Neutrophils # (1.3-7.7) k/uL Lymphocytes # (1.0-4.8) k/uL ABG pH 7.51 H 7.32 L (7.35-7.45) ABG pCO2 64 H (35-45) mmHg ABG pO2 41 L* (83-108) mmHg ABG HCO3 33 H 33 H (21-25) mmol/L ABG Total CO2 35 H 35 H (19-24) mmol/L ABG O2 Saturation 78.6 L (94-97) % Carbon Dioxide (22-30) mmol/L BUN (9-20) mg/dL Creatinine (0.66-1.25) mg/dL Calcium (8.4-10.2) mg/dL AST (17-59) U/L Alkaline Phosphatase (38-126) U/L Total Protein (6.3-8.2) g/dL Albumin (3.5-5.0) g/dL Procalcitonin 0.13 H (0.02-0.09) ng/mL 02/03/21 02/03/21 02/03/21 Range/Units 03:15 03:15 06:00 WBC 21.5 H (3.8-10.6) k/uL RBC 3.09 L (4.30-5.90) m/uL Hgb 8.8 L (13.0-17.5) gm/dL Hct 28.4 L (39.0-53.0) % Neutrophils # 21.0 H (1.3-7.7) k/uL Lymphocytes # 0.2 L (1.0-4.8) k/uL ABG pH 7.25 L (7.35-7.45) ABG pCO2 74 H* (35-45) mmHg ABG pO2 (83-108) mmHg ABG HCO3 33 H (21-25) mmol/L ABG Total CO2 35 H (19-24) mmol/L ABG O2 Saturation (94-97) % Carbon Dioxide 31 H (22-30) mmol/L BUN 46 H (9-20) mg/dL Creatinine 1.39 H (0.66-1.25) mg/dL Calcium 7.6 L (8.4-10.2) mg/dL AST 61 H (17-59) U/L Alkaline Phosphatase 202 H (38-126) U/L Total Protein 5.1 L (6.3-8.2) g/dL Albumin 2.3 L (3.5-5.0) g/dL Procalcitonin (0.02-0.09) ng/mL Microbiology - Last 24 Hours (Table) 02/02/21 19:00 Gram Stain - Preliminary Sputum Sputum Culture - Preliminary Assessment and Plan Plan: Assessment: #1. Acute hypoxic respiratory failure secondary to COVID-19 pneumonia. Patient is not nonvaccinated adult, his symptoms started on 01/17/2021. Patient took ivermectin on an outpatient basis prescribed by his [place] doctor. Patient refused Remdesivir. Is currently on Decadron, prophylactic anticoagulation, and COVID-19 vitamins. Patient was started on Baricitinib today on 01/27/2021 in view of progressive hypoxia and patient is on BiPAP support now on 01/29/2021 with pressures of 12 and 6 and FiO2 of 100%. On 02/02/2021 patient was emergently transferred to the intensive care unit where he was intubated. Currently on assist control mode of ventilation with a rate of 26, otherwise was 450, FiO2 of 85% and PEEP of 10 on 02/03/2021 #2. Acute right lower lobe partially occlusive PE with subsegmental extension diagnosed by CT angiogram of the chest on 01/30/2021. Patient has been started on Eliquis 10 mg twice daily #3. Acute kidney injury, possibly related to COVID-19 related ATN #4. Hematuria #5. Elevated inflammatory markers related to the above, slightly improved and worsened again today on 01/31/2021. #6. Elevated transaminases, improving #7. History of COPD with diffuse centrilobar emphysema #8. Former smoker #9. Coronary artery disease with previous coronary artery bypass grafting 4 in 2018 #10. Mitral valve repair #11. Crohn's disease #12. Hypertension #13. History of systolic CHF #14. Elevated d-dimer, and without CT evidence of pulmonary embolism, or DVT on bilateral lower extremity Dopplers #15. Acute kidney injury possibly related to COVID-19 ATN, improving Plan: Today's chest x-ray and blood gases and labs have been reviewed Increase the rate to 30 breaths per minute, increase PEEP up to 12, FiO2 down to 70% Continue weaning FiO2 to keep O2 sats ration is at or above 90-92% We will give the patient additional 1 L bolus increased maintenance IV fluids to 75 ML per hour Wean norepinephrine drip Continue current medical treatment with same dose Decadron 6 mg daily, Baricitinib, oral anticoagulation, COVID-19 vitamins Consult urology for hematuria Nephrology continues to follow for acute kidney injury Start nutritional support with tube feedings Follow-up inflammatory markers, follow-up labs tomorrow Place patient in prone position as long as not requiring high doses of vasopressors for 12-16 hours/daily Prognosis is extremely guarded We'll continue to follow I performed a history & physical examination of the patient and discussed their management with my nurse practitioner, Parvin rAango. I reviewed the nurse practitioner's note and agree with the documented findings and plan of care. Lung sounds are positive for diffuse crackles throughout the lung hernandez. The findings and the impression was discussed with the patient. I attest to the documentation by the nurse practitioner. Time with Patient: Greater than 30
--- NOTE | 2021-02-03 12:30 | OP ---
OPERATIVE REPORT TRIPLE LUMEN CATHETER PLACEMENT: PREOP DIAGNOSIS: Administration of fluids and pressors. POSTOP DIAGNOSIS: Administration of fluids and pressors. BIOMETRICS CONSULTANT: Dr. Nba Olivares Indication: Hemodynamic monitoring/Intravenous access. A time-out was completed verifying correct patient, procedure, site, positioning, and implant(s) or special equipment if applicable. The patient was placed in a dependent position appropriate for triple lumen catheter placement based on the vein to be cannulated. The patient's left shoulder was prepped and draped in sterile fashion. 1% Lidocaine was used to anesthetize the surrounding skin area. A triple lumen 9F Cordis catheter was introduced into the subclavian vein using Seldinger technique. The catheter was threaded smoothly over the guide wire and appropriate blood return was obtained. Each lumen of the catheter was evacuated of air and flushed with sterile saline. The catheter was then sutured in place to the skin and a sterile dressing applied. Perfusion to the extremity distal to the point of catheter insertion was checked and found to be adequate. There was informed consent and universal timeout. We used the left subclavian vein. There was no immediate complication. There was good blood return from all 3 ports. The patient tolerated procedure well. The catheter was sutured in place. Sterile dressing was applied by the nurse. There was no immediate complication. A chest x-ray was ordered to rule out pneumothorax and check placement of the catheter. MMODL / IJN: [id number] /
--- NOTE | 2021-02-03 12:30 | OP ---
OPERATIVE REPORT ARTERIAL LINE PLACEMENT: PREOP DIAGNOSIS: Administration of fluids and blood draws. POSTOP DIAGNOSIS: Administration of fluids and blood draws. We used a right radial artery. There was informed consent and universal timeout the. DATA CONVERSION ANALYST: Dr. Quiroga and Dr. Arango. Indications: Hemodynamic monitoring. A time-out was completed verifying correct patient, procedure, site, positioning, and implant(s) or special equipment if applicable. Saroj's test was performed to ensure adequate perfusion. The patient's right wrist was prepped and draped in sterile fashion. 1% Lidocaine was used to anesthetize the area. An 18G Arrow arterial line was introduced into the radial artery. The catheter was threaded over the guide wire and the needle was removed with appropriate pulsatile blood return. Blood loss was minimal. The catheter was then sutured in place to the skin and a sterile dressing applied. Perfusion to the extremity distal to the point of catheter insertion was checked and found to be adequate. The patient tolerated the procedure well and there were no immediate complications. The catheter was sutured in place and a sterile dressing was applied by the nurse. MMODL / IJN: [id number] /
[2021-02-03] MEDS: BARICITINIB 2 MG TABLET PO SCH (13:39)
--- NOTE | 2021-02-03 16:24 | P.PN ---
Progress Note - Text Progress Note Date: 02/03/21 Hospital course: 74-year-old patient who follows with Dr. Mauricio Keith. Tonic stable medical conditions include hypertension, Crohn's disease, nephrolithiasis, BPH, hypertension, tinnitus, COPD, CAD with bypass. EF of 20-25%. Presented with shortness of breath. Diagnosed with COVID 19 on January 18 symptoms starting 1 day before. He was found to be hypoxic at home. Upon arrival he was 85%. Patient declined treatment with Remdesivir. Patient had been taking ivermectin as outpatient. She requested this to be continued. This was declined by the admitting team as this was not approved treatment. Patient not vaccinated against COVID. She did with subcu Lovenox and dexamethasone. January 24: Patient feeling better. On 3 L nasal cannula. Oral intake fair. Up in a bed. Slight cough. January 25: Sitting up in a recliner. Tired. Has some chest tightness. 92% on 4 L. Oral intake good. January 26: Bit more short of breath. Oxygen requirement: Up to 15 L. Had low-grade fever. Eating about 50-75%. Tired. Up in a chair. January 27: Short of breath. Sitting at the edge of the bed. 15 L nasal cannula. Decreased appetite. January 28: Laying in bed. Tired. Short of breath. On 15 L nonrebreather. Oral intake fair. Started on Baricitinib by pulmonary January 29: Patient is become more short of breath. Placed on BiPAP. Decreased oral intake. Tired. On Baricitinib, dexamethasone. January 30: Sitting up in a chair. Using BiPAP. Short of breath. Decreased oral intake. On Baricitinib) dexamethasone. Acute PE on CT chest. Started on eliquis January 31: Sitting at the edge of the bed. BiPAP. Short of breath. Tired. On eliquis, on Baricitinib, dexamethasone. February 01: Laying in bed. Short of breath. BiPAP. Tired. On Baricitinib, dexamethasone, eliquis. Eating reasonably well. February 02: Rather tired short of breath BiPAP 100%. On dexamethasone, eliquis February 03: ICU: Intubated yesterday. Prone position. Ventilator FiO2 70 PEEP of 12. Drips included propofol and Nimbex. Review of systems: Patient sedated Active Medications Acetaminophen (Acetaminophen Tab 325 Mg Tab) 650 mg PO Q6HR PRN PRN Reason: Fever and/ or Pain Last Admin: 02/02/21 06:07 Dose: 650 mg Documented by: Albuterol Sulfate (Albuterol Hfa Inhaler) 2 puff INHALATION RT-QID [facility] Last Admin: 02/03/21 16:04 Dose: 2 puff Documented by: Albuterol Sulfate (Albuterol Hfa Inhaler) 4 puff INHALATION RT-QID PRN PRN Reason: Shortness Of Breath Or Wheezing Apixaban (Apixaban 5 Mg Tab) 10 mg PO BID [facility]; Protocol Stop: 02/06/21 09:01 Last Admin: 02/03/21 11:45 Dose: 10 mg Documented by: Apixaban (Apixaban 5 Mg Tab) 5 mg PO BID [facility]; Protocol Artificial Tears (Artificial Tears-Hypromellose Drops 15 Ml Btl) 2 drops BOTH EYES Q4HR [facility] Last Admin: 02/03/21 15:29 Dose: 2 drops Documented by: Ascorbic Acid (Ascorbic Acid 500 Mg Tab) 2,000 mg PO DAILY [facility] Last Admin: 02/03/21 08:51 Dose: 2,000 mg Documented by: Aspirin (Aspirin 81 Mg) 81 mg PO DAILY [facility] Last Admin: 02/03/21 08:53 Dose: 81 mg Documented by: Balsalazide (Balsalazide Disodium 750 Mg Capsule) 2,250 mg PO TID [facility] Last Admin: 02/03/21 12:12 Dose: 2,250 mg Documented by: Baricitinib (Baricitinib 2 Mg Tablet) 2 mg PO DAILY@1400 [facility] Stop: 02/09/21 14:01 Last Admin: 02/03/21 13:39 Dose: 2 mg Documented by: Chlorhexidine Gluconate (Chlorhexidine Gluconate 15 Ml Cup) 15 ml MUCOUS MEM BID [facility] Last Admin: 02/03/21 08:54 Dose: 15 ml Documented by: Cholecalciferol (Cholecalciferol 125 Mcg (5000 Iu) Tablet) 125 mcg PO DAILY [facility] Last Admin: 02/03/21 08:54 Dose: 125 mcg Documented by: Cyanocobalamin (Cyanocobalamin 500 Mcg Tab) 4,000 mcg PO DAILY [facility] Last Admin: 02/03/21 08:50 Dose: 4,000 mcg Documented by: Dexamethasone (Dexamethasone 2 Mg Tab) 6 mg PO DAILY [facility] Last Admin: 02/03/21 08:53 Dose: 6 mg Documented by: Fluticasone Propionate (Fluticasone 110 Mcg Inhaler) 2 puff INHALATION RT-BID [facility] Last Admin: 02/03/21 07:48 Dose: 2 puff Documented by: Hydralazine HCl (Hydralazine Hcl 25 Mg Tab) 25 mg PO BID [facility] Last Admin: 02/03/21 08:43 Dose: Not Given Documented by: Propofol 1,000 mg/ IV Solution 100 mls @ 0 mls/hr IV .Q0M [facility]; Protocol Last Admin: 02/03/21 15:29 Dose: 50 mcg/kg/min, 21.773 mls/hr Documented by: Sodium Chloride (Saline 0.9%) 1,000 mls @ 20 mls/hr IV .Q24H [facility] Last Admin: 02/02/21 19:39 Dose: 20 mls/hr Documented by: Cisatracurium Besylate 200 mg/ (Sodium Chloride) 200 mls @ 8.709 mls/hr IV .[id number] [facility]; Protocol Last Titration: 02/03/21 09:00 Dose: 1.5 mcg/kg/min, 6.532 mls/hr Documented by: Norepinephrine Bitartrate 4 mg (/ Sodium Chloride) 254 mls @ 13.826 mls/hr IV .[id number] [facility]; Protocol Last Admin: 02/03/21 11:41 Dose: 0.05 mcg/kg/min, 13.826 mls/hr Documented by: Sodium Chloride (Saline 0.9%) 1,000 mls @ 75 mls/hr IV .[id number] [facility] Last Admin: 02/03/21 08:21 Dose: 75 mls/hr Documented by: Metoprolol Tartrate (Metoprolol Tartrate 25 Mg Tab) 25 mg PO BID [facility] Last Admin: 02/03/21 11:33 Dose: Not Given Documented by: Tamsulosin HCl (Tamsulosin 0.4 Mg Cap.Er.24h) 0.4 mg PO BID [facility] Last Admin: 02/03/21 08:51 Dose: 0.4 mg Documented by: Zinc Sulfate (Zinc Sulfate 220 Mg Cap) 220 mg PO DAILY [facility] Last Admin: 02/03/21 08:54 Dose: 220 mg Documented by: On examination: VITAL SIGNS: 98.5, 16, 30, 137/60, 93% on the ventilator GENERAL APPEARANCE: Prone position, sedated RESPIRATORY: Respiratory effort increased. PSYCHIATRY: Unable to assess, sedated Rest of the exam per pulmonary and nursing INVESTIGATIONS, reviewed in the clinical context: February 03: W BC 21.5 hemoglobin 8.8 platelets 267 ABG: PH 7.25 pCO2 34 pO2 93 potassium 4.6 creatinine 1.39 February 02: White count 18.4 hemoglobin 9. ABG: PH 7.5 pO2 58 creatinine 1.18. Chest x-ray: Worsening February 01: White count 16.7 hemoglobin 9.7 d-dimer greater than 34 BUN 45 creatinine 1.27 January 31: WBC 13.1 COVID 10.3 d-dimer greater than 34 potassium 4.5 creatinine 1.26 CRP 3.5 January 30: WBC 10.4 hemoglobin 9.8 platelets 145 potassium 4.5 creatinine 1.4. AST [address] angiogram for PE [January 30] new Pasia occlusive embolism segmental bronchus right lower lobe with segmental extension. Doppler ultrasound [January 29]: Superficial thrombosis in the right lesser saphenous vein. January 29: D-dimer greater than 34 potassium 4.4 BUN 67 creatinine 1.61 AST 174 ALT 73 January 28: WBC 10.2 hemoglobin 11.4 platelets 154 d-dimer greater than 34 sodium 136 potassium 4.9. 43 creatinine 1.29 January 27: WBC 11.8 hemoglobin 10.5 January 26: White count 11.8 hemoglobin 11.5 d-dimer 12.6 CRP 7.3 White count 5.9 hemoglobin 12.3 platelets 162 d-dimer 0.93 potassium 4.1 creatinine 0.86 CRP 4.4 Admission labs: Pro-calcitonin 0.04 Coronavirus [PCR]: Detected D-dimer 0.83 EKG tracing personally reviewed by me-sinus bradycardia. Rate 55 Chest x-ray: biLateral infiltrates Assessment and plan: -Bilateral COVID 19 pneumonitis: Not improving Dexamethasone. Subcu Lovenox. (declined Remdesivir. patient was taking ivermectin at home). Baricitinib started January 28 -Acute pulmonary embolism: eliquis -Acute hypoxic respiratory failure from COVID 19: Worsening On BiPAP 100%. Intubated February 02. On the ventilator -Essential hypertension Lopressor 25 mg twice a day, hydralazine 25 mg twice a day -Chronic Crohn's disease Pentasa 1000 milligrams 3 times a day - nephrolithiasis Follow clinically -Acute kidney injury. Possibly ATN from COVID 19:: Slow to respond IV fluids. Follow nephrology -BPH Flomax 0.4 mg twice a day -COPD in a previous smoker Pulmicort -Chronic tinnitus with hearing impairment -CAD with bypass Aspirin, beta billy, Lipitor -Hyperlipidemia Lipitor 40 mg daily -Acute hepatitis: Improving hold Lipitor. Follow LFT -Full code IV propofol IV Nimbex. Baricitinib. Dexamethasone. On the ventilator intubated. Prognosis guarded.
[2021-02-03 17:37] LABS: Glucose,Whole Blood 111 mg/dL (75-99)
[2021-02-03] MEDS: CISATRACURIUM 200 MG in SODIUM CHLORIDE 0.9% 180 ML IV SCH (19:49)
[2021-02-04] LABS: Glucose,Whole Blood 131 mg/dL (75-99)
[2021-02-04] MEDS: ARTIFICIAL TEARS-HYPROMELLOSE DROPS 15 ML BTL BOTH EYES SCH ×6 (00:22→20:10)
[2021-02-04] MEDS: SODIUM CHLORIDE 0.9% 1,000 ML IV SCH ×2 (00:22→11:15)
[2021-02-04 05:04] LABS: Basophils % (A) 0 %; Eosinophils % (A) 0 %; HCT 23.8 % (39.0-53.0); HGB 7.4 gm/dL (13.0-17.5); Hypochromasia Moderate; Lymphocytes # (A) 0.1 k/uL (1.0-4.8); Lymphocytes % (A) 1 %; MCH 28.5 pg (25.0-35.0); MCHC 31.3 g/dL (31.0-37.0); MCV 90.9 fL (80.0-100.0); Mean Platelet Volume 8.4; Monocytes # (A) 0.2 k/uL (0-1.0); Monocytes % (A) 2 %; Neutrophils # (A) 9.8 k/uL (1.3-7.7); Neutrophils % (A) 97 %; Platelet Count 221 k/uL (150-450); RBC 2.61 m/uL (4.30-5.90); RDW 14.8 % (11.5-15.5); WBC 10.2 k/uL (3.8-10.6)
[2021-02-04 05:44] LABS: Calcium 7.6 mg/dL (8.4-10.2); Potassium 4.3 mmol/L (3.5-5.1)
[2021-02-04 06:28] LABS: ABG Base Excess 5.4 mmol/L; ABG HCO3 31 mmol/L (21-25); ABG Oxygen Saturation 91.3 % (94-97); ABG PCO2 52 mmHg (35-45); ABG PH 7.38 (7.35-7.45); ABG TCO2 32 mmol/L (19-24); Allen Test Performed? Yes
[2021-02-04 06:54] LABS: ABG PO2 59 mmHg (83-108)
--- NOTE | 2021-02-04 07:46 | P.PN ---
Subjective Progress Note Date: 02/04/21 This is a 75-year-old male patient who follows with Dr. Mauricio Keith is his primary care provider. He has a history of coronary artery disease with previous coronary artery bypass grafting, mitral valve replacement, hypertension, hyperlipidemia, chronic obstructive pulmonary disease, former smoker, Crohn's disease. On January 17 the patient started having symptoms of fever cough congestion weakness and was tested for COVID-19 on January 18. He found out his results on January 21 and was told to stay home and rest unless his symptoms worsened. He was given doxycycline and prednisone 20 mg twice a day. His brought him into the emergency room here today as his oxygen levels were dropping at home. Chest x-rays revealing patchy bilateral interstitial pneumonia with underlying COPD. White count 2.8. Hemoglobin 12.9. Platelets 149. Lymphocytes 0.2. D-dimer 0.83. Sodium 133. Potassium 4.7. Creatinine 1.06. Glucose 154. AST 122. ALT 75. LDH 1082. C-reactive protein 6.4. Chronic virus by PCR positive. The patient is not vaccinated. He is seen today in the emergency room. Awake and alert in no acute distress. Sitting up on a stretcher. He is 85% O2 saturation on room air. 93% on 2 L per nasal cannula. Afebrile. Hemodynamically stable. He's been initiated on Lovenox and vitamin supplements. He will be started on Decadron. We discussed with him the possibility for Remdesivir which he is reluctant to receive. His who is sitting next to him is also having symptoms and she plans to go get tested today. The patient is seen today 01/24/2021 in follow-up on the observation unit. He is currently sitting up in bed. Awake and alert in no acute distress. He is feeling quite a bit better. Feeling stronger today. He did decline Remdesivir. He has been maintained on Lovenox, Decadron, vitamin supplements. He is currently maintaining O2 saturation in the low 90s on 3 L/m per nasal cannula. He's been afebrile. Hemodynamically stable. Chest x-ray continues to show increased bilateral infiltrates. White count 5.9. Hemoglobin 12.3. D-dimer 0.93. Sodium 134. Potassium 4.1. Creatinine 0.86. Glucose 158. AST 87. ALT 62. LDH 81. C-reactive protein 4.4. On 01/25/2021 patient seen in follow-up on medical surgical floor. He is awake and alert, in no acute distress, breathing comfortably, although still has a persistent cough, does have exertional dyspnea. He is currently on 4 L of oxygen and his pulse ox is borderline between 87-92%. No fever or chills, blood pressure is been stable, patient has been ambulate into the bathroom. Today's chest x-ray shows progressive changes in the lungs with increasing bilateral infiltrates. Patient remains on Decadron 6 mg daily, prophylactic Lovenox, he is on inhaled [place] dilators, he is on COVID-19 vitamins. His labs from yesterday showed a d-dimer of 0.93, electrolytes and renal profile were fairly unremarkable, his AST and ALT were improving and were down to 87 and 62 respectively, his inflammatory markers showed a trend for improvement with LDH at 881, and CRP of 4.4. On 01/27/2021 patient seen in follow-up on medical surgical floor. Patient's hypoxia has significantly progressed in the last 24-48 hours, and he is currently up to 15 L per high flow nasal cannula and nonrebreather mask, and his pulse ox is 94-95%, he is also more dyspneic on today's exam, no fever, vital signs have been stable other than progressive hypoxia. CT angiogram of the chest showed no evidence of pulmonary embolism, and extensive pulmonary infiltrates, underlying emphysema. Lower extremity Dopplers were negative for DVT. Today's labs have been reviewed, his white blood cell count is 11.8, hemoglobin is 10.5, his d-dimer on yesterday's labs was increased to 12.66 without evidence of PE or DVT, his LDH is still pending for today, and his CRP was 7.3. Pro-A Level Was Negative. he had previously refused Remdesivir, we discussed starting Baricitinib for him and patient is agreeable to try it. On 01/28/2021 patient is seen in follow-up on medical surgical floor. His oxygen demand has remained relatively stable over the last 24 hours, she remains on the same 15 L per high flow nasal cannula and nonrebreather mask at 100%, his pulse ox is ranging between 85-93%, does not appear to be in any acute distress. Looks a bit tired, denies any chest discomfort, his been afebrile, mild cough, no phlegm production. Patient continues on Baricitinib, he is on Decadron, he is on prophylactic Lovenox, today's d-dimer was greater than 34.1. His CT angiogram of the chest and lower extremity Dopplers were negative for PE and DVT. His white blood cell count is 10.2, hemoglobin is 11.4, sodium is 136, dress electrolytes were unremarkable, his renal function took little bump and BUN was up to 43 and creatinine was 1.29 on today's labs. His inflammatory markers are still pending for today, CRP has increased to 17.9. Tolerating ortal intake, no nausea or vomiting, his appetite is good. On 01/29/2021 patient seen in follow-up on medical surgical floor, yesterday he was on increasing amount of oxygen, at 15 L and [place] nonrebreather mask, he was looking fatigued, overnight his hypoxia had progressed, rapid response team was called this morning, for worsening hypoxia, and his pulse ox was only in the 70s on the above mentioned oxygen, patient was placed on BiPAP support with pressures of 12.6 on FiO2 of 90%, O2 saturations has improved, up to 96%, and subsequently FiO2 has been dropped down to 65% and patient is maintaining O2 saturation of 91%. Has been afebrile, hemodynamically stable, he remains on Baricitinib, remains on Decadron, his d-dimer is persistently elevated at 34.1, there was no evidence of PE on the CTA chest from a few days ago, his renal function remains impaired, and worse on today's labs, with BUN up to 67 and creatinine of 1.61. He remains on prophylactic dose Lovenox, we will repeat lower extremity Dopplers today. Otherwise fairly stable, but remains a high risk for further deterioration in his clinical condition. On 01/30/2021 patient seen in follow-up on medical surgical floor, he remains on BiPAP support with pressures of 12 and 6 and FiO2 is currently at 80%. His O2 saturations are ranging between 87-96%, he states his breathing is improved, he is less dyspneic and less tachypneic. He is tolerating BiPAP support quite wel l, he is awake and alert, he sitting up in the recliner, his been afebrile, hemodynamically he has been stable, continues to have a cough, at times he is able to bring up some phlegm and at times it is blood tinged according to the patient. His d-dimer was significantly elevated on yesterday's labs, lower extremity Dopplers showed no evidence of DVT, and patient continues on prophylactic dose Lovenox 40 mg daily, he is on Baricitinib, and Decadron 6 mg daily. Today's labs have been reviewed, his white blood cell count is 10.4, hemoglobin is 9.8, platelet count is 145, electrolytes are within normal limits, renal function has improved on BUN is down to 59 and creatinine is 1.4, his AST and ALT are improving, alkaline phosphatase is 184, slightly increased, his LDH and CRP are still pending for today. His appetite is good, and patient is able to remove the BiPAP mask and reapplied in between bites. He 100% of his lunch. He was on face time with his , and I updated the patient's on his progress and the plan of care. She was concerned about his nutrition and we will add ensure 3 times a day with meals to supplement his nutrition On 01/31/2021 patient is seen in follow-up on medical surgical floor. Patient remains on BiPAP with pressures of 12 and 6 and 100% and his pulse ox is 93-98%. He is breathing comfortably, he states he did tolerate high flow nasal cannula briefly yesterday, he is awake and alert, denies acute distress however he is dyspneic with talking, and it's difficult for him to talk while on BiPAP. He is on face time with his . His appetite is good, he is been able to eat almost 100% of his meals. CTA chest was completed last night showing new partially occlusive embolism in the segmental branch in the right lower lobe with subsegmental extension. And there was persistent bilateral groundglass opacities and organizing consolidations greatest in the lower lungs slightly improved from prior study suggesting improving COVID-19 infection. Patient was started on Eliquis 10 mg twice daily last night. Occasional cough, no hemoptysis, no pleurisy. He continues on Baricitinib, Decadron, and multivitamins. His blood work today was reviewed showing white blood cell count of 13.1, hemoglobin of 10.3, his d-dimer remains elevated at greater than 34.1, electrolytes were unremarkable, his BUN is 56 and creatinine is 1.26, improved from yesterday, his LDH has trended up and is up to 2004, and CRP is 3.5, urinalysis showed trace protein, but no definite sign of infection. On 02/03/2021 patient seen in follow-up in the intensive care unit, he has been intubated yesterday on 02/02/2021 and placed on mechanical ventilator, he is cur rently on assist control mode of ventilation with a rate of 26, tidal volume was 450, FiO2 of 85% and PEEP of 10. This morning's blood gas shows pO2 of 93, pCO2 74, and pH of 7.25. His rate was subsequently increased to 30, PEEP up to 12 and FiO2 has been dropped down to 70%, he is currently on Diprivan at 50 mics per kilo per minute, IV 0.9 at 20 ML per hour, and norepinephrine at 0.14 mics per kilo per minute, Nimbex is at 2 mics per kilo per minute. Patient's chest x-ray from this morning shows no pneumothorax a large pleural effusion, prosthetic heart valve and median sternotomy wires, pulmonary edema/ARDS. This morning's labs have been reviewed showing white blood cell count of 21.5, hemoglobin of 8.8, platelet count of 267, serum sodium of 137, potassium is 4.6, chloride is 100, CO2 is 31, BUN of 46 creatinine of 1.39, worsened renal function on today's labs, AST was 61, improved, ALT was within normal limits at 27, alkaline phosphatase was 202. His last LDH and CRP were from a couple days ago on 02/01/2021 and were still significantly elevated at 2079 and 6.0 respectively. His last pro-calcitonin from yesterday on 02/02/2021 was 0.13. His urinalysis showed no evidence of infection. Sputum culture has been sent showing no white blood cells and no organisms. Patient has been started on Eliquis for right lower lobe pulmonary embolism discovered on CT angiogram of t he chest on 01/30/2021. Patient developed hematuria, he is on Flomax for history of BPH, she remains on oral anticoagulation, and urology service will be consulted. tube feedings have not been started yet On 02/04/2021, the patient remains intubated on a mechanical ventilator. The patient was intubated on 02/02/2021 due to complications of COVID 19 related pneumonia. This morning the patient is sedated and the patient is currently on a combination of propofol and this is running at 50 mcg/kg per minute. The patient is also paralyzed with Nimbex at 1.5 mcg/kg per minute. The patient is very much suggestive the mechanical ventilator. At this point in time, the patient is an assist-control mode of mechanical ventilation at the rate of 30 with a tidal volume of 450 with an FiO2 of 50% and a PEEP of 12. The blood gas showed a pH of 7.38 with a pCO2 of 52 and pO2 of 59. The peak airway pressure is 29 on the mechanical ventilator. Post intubation, the patient got prolonged. He was prone last night for a total of 16 hours and earlier this morning, the patient was placed back in a supine body position. The blood. This has been checked is when the patient was supine. Chest x-ray from today is showing bilateral pulmonary infiltrates which is rather diffuse and this is consistent with COVID 19 related pneumonia. The patient has extensive infiltration bilaterally. He has post thoracotomy changes. He has a left subclavian triple- lumen catheter in place. ET tube is in a excellent location. The patient also has a or G-tube in place. There is no evidence of any pneumothorax. Note that the patient also had a CT angiogram at a time of admission on 01/30/2021 and it showed evidence of a right lower lobe pulmonary embolism and it was small and based on that the patient was started on anticoagulation and currently the patient is on Eliquis. In terms of treatment, the patient is also on a combination of Decadron 6 mg daily and Baricitinib per protocol for acute hyp oxic respiratory failure and diffuse COVID 19 related pneumonia. In terms of his inflammatory markers, the patient had a LDH level this was quite high in the 2000 range and this has not been checked over the past few days. At the same time, the patient became hypotensive postintubation. For now, the patient is currently off norepinephrine infusion. The same time, the patient has dropped his hemoglobin of 7.4. No active GI bleeding. His hemoglobin initially was as high as 10.3. He is having some hematuria. Doppler of the lower extremity has a negative for DVTs. He is not receiving enteral feeding for nutritional support. On a separate note, his d-dimer has been consistently elevated above 34,000 and this has not been checked as of 02/02/2021. These pro-calcitonin level is at 0.13. Creatinine has remained stable at 1.26 although there is a component of a acute kidney injury knowing that the patient's renal function has been normal beginning of this year. Objective - Vital Signs Vital signs: Vital Signs Temp 94.8 F L 02/04/21 04:00 Pulse 49 L 02/04/21 07:00 Resp 30 H 02/04/21 07:00 BP 114/63 02/04/21 04:00 Pulse Ox 87 L 02/04/21 07:00 Intake & Output 02/03/21 02/04/21 02/04/21 18:59 06:59 18:59 Intake Total 2239.721 1534.402 Output Total 515 895 Balance 1724.721 639.402 Weight 74 kg Intake: IV 40 975 Sodium Chloride 0.9% 1, 40 000 ml @ 20 mls/hr IV . Q24H [facility] Rx#:[id number] Sodium Chloride 0.9% 1, 975 000 ml @ 75 mls/hr IV . [id number] [facility] Rx#:[id number] Intake, IV Titration 2199.721 559.402 Amount Cisatracurium 200 mg In 115.685 70.654 Sodium Chloride 0.9% 180 ml @ 2 MCG/KG/MIN 8.709 mls/hr IV .[id number] [facility] Rx #:[id number] Norepinephrine 4 mg In 151.299 188.955 Sodium Chloride 0.9% 250 ml @ 0.05 MCG/KG/MIN 13. 826 mls/hr IV .[id number] [facility] Rx#:[id number] Sodium Chloride 0.9% 1, 750 000 ml @ 75 mls/hr IV . [id number] [facility] Rx#:[id number] Sodium Chloride 0.9% 1, 1000 000 ml @ 999 mls/hr IV . Q1H1M ONE Rx#:[id number] propofoL 1,000 mg In 182.737 299.793 Empty Bag 1 bag @ Titrate IV .Q0M [facility] Rx#: [id number] Output: Urine 515 895 Other: Voiding Method Indwelling Catheter Indwelling Catheter ABP, PAP, CO, CI - Last Documented Arterial Blood Pressure 110/42 - Exam GENERAL EXAM: Intubated, sedated and paralyzed 75-year-old white male, on assist control mode of ventilation with a rate of 26, tidal volume was 450, FiO2 of 50% and PEEP of 12 HEAD: Normocephalic/atraumatic. EYES: Normal reaction of pupils, equal size. Conjunctiva pink, sclera white. NOSE: Clear with pink turbinates. THROAT: No erythema or exudates. NECK: No masses, no JVD, no thyroid enlargement, no adenopathy. CHEST: No chest wall deformity. Symmetrical expansion. LUNGS: Equal air entry with diffuse bilateral crackles CVS: Regular rate and rhythm, normal S1 and S2, no gallops, no murmurs, no rubs ABDOMEN: Soft, nontender. No hepatosplenomegaly, normal bowel sounds, no guarding or rigidity. EXTREMITIES: No clubbing, no edema, no cyanosis, 2+ pulses and upper and lower extremities. MUSCULOSKELETAL: Muscle strength and tone normal. SPINE: No scoliosis or deformity SKIN: No rashes CENTRAL NERVOUS SYSTEM: Intubated, No focal deficits, tone is normal in all 4 extremities. PSYCHIATRIC: Sedated, paralyzed - Labs CBC & Chem 7: 02/04/21 04:32 02/04/21 04:32 Labs: Abnormal Lab Results - Last 24 Hours (Table) 02/03/21 02/03/21 02/04/21 Range/Units 17:36 23:57 04:32 RBC 2.61 L (4.30-5.90) m/uL Hgb 7.4 L (13.0-17.5) gm/dL Hct 23.8 L (39.0-53.0) % Neutrophils # 9.8 H (1.3-7.7) k/uL Lymphocytes # 0.1 L (1.0-4.8) k/uL ABG pCO2 (35-45) mmHg ABG pO2 (83-108) mmHg ABG HCO3 (21-25) mmol/L ABG Total CO2 (19-24) mmol/L ABG O2 Saturation (94-97) % BUN (9-20) mg/dL Creatinine (0.66-1.25) mg/dL Glucose (74-99) mg/dL POC Glucose (mg/dL) 111 H 131 H (75-99) mg/dL Calcium (8.4-10.2) mg/dL 02/04/21 02/04/21 Range/Units 04:32 06:25 RBC (4.30-5.90) m/uL Hgb (13.0-17.5) gm/dL Hct (39.0-53.0) % Neutrophils # (1.3-7.7) k/uL Lymphocytes # (1.0-4.8) k/uL ABG pCO2 52 H (35-45) mmHg ABG pO2 59 L* (83-108) mmHg ABG HCO3 31 H (21-25) mmol/L ABG Total CO2 32 H (19-24) mmol/L ABG O2 Saturation 91.3 L (94-97) % BUN 45 H (9-20) mg/dL Creatinine 1.26 H (0.66-1.25) mg/dL Glucose 116 H (74-99) mg/dL POC Glucose (mg/dL) (75-99) mg/dL Calcium 7.6 L (8.4-10.2) mg/dL Microbiology - Last 24 Hours (Table) 02/02/21 19:00 Gram Stain - Preliminary Sputum Sputum Culture - Preliminary Assessment and Plan Plan: #1. Acute hypoxic respiratory failure secondary to COVID-19 pneumonia. Patient is not nonvaccinated adult, his symptoms started on 01/17/2021. Patient took ivermectin on an outpatient basis prescribed by his [place] doctor. Patient refused Remdesivir. Is currently on Decadron, prophylactic anticoagulation, and COVID-19 vitamins. Patient was started on Baricitinib today on 01/27/2021 in view of progressive hypoxia and patient is on BiPAP support now on 01/29/2021 with pressures of 12 and 6 and FiO2 of 100%. On 02/02/2021 patient was emerge ntly transferred to the intensive care unit where he was intubated. Currently on assist control mode of ventilation . I reviewed the computed tomography scan of the chest and I'm not concerned of an underlying pulmonary embolism. I think this is an alcohol by the radiologist. I understand that he d-dimer is elevated above 34,000. Nevertheless, Doppler of the lower extremity is negative and the main pulmonary artery branches are all free of any filling defects. At the same time, the patient has developed a drop in hemoglobin, hematuria, he is having some bleeding from the central line insertion site and his nose and based on all this, I am recommending to stop anticoagulation for now. At the same time, we'll keep the patient sedated and paralyzed. No other ventilator changes to be done today. No need for any further falling from this point and on. The patient is currently on a PEEP of 12 and FiO2 of 50%. We'll monitor the hemoglobin. #2. Questionable right lower lobe partially occlusive PE with subsegmental extension diagnosed by CT angiogram of the chest on 01/30/2021. Patient has been started on Eliquis 10 mg twice daily and the patient has demonstrated bleeding complications, probably due to anticoagulation at a higher dose of Eliquis in combination with aspirin. #3. Acute kidney injury, possibly related to COVID-19 related ATN #4. Hematuria, see discussion above #5. Elevated inflammatory markers related to the above, slightly improved and worsened again today on 01/31/2021. #6. Elevated transaminases, improving #7. History of COPD with diffuse centrilobar emphysema #8. Former smoker #9. Coronary artery disease with previous coronary artery bypass grafting 4 in 2018 #10. Mitral valve repair #11. Crohn's disease #12. Hypertension #13. History of systolic CHF #14. Elevated d-dimer, and without CT evidence of pulmonary embolism, or DVT on bilateral lower extremity Dopplers #15. Acute kidney injury possibly related to COVID-19 ATN, stable #16 acute drop in hemoglobin, anemia, consolidated to bleed as mentioned above. Hemoglobin currently is at 7.4 Plan: Continue ventilator support, no need for any vent changes for today. No need for pronating Stop Eliquis Stop aspirin Check factor Xa activity level, a marker of anticoagulation once the level is available we'll decide the patient would need further anticoagulation. I suspect that he is over anticoagulated for now.check PT/PTT INR, DD Repeat inflammatory markers including d-dimer and a pro-calcitonin level Monitor the hemoglobin had been noticeable hemoglobin in the afternoon The patient is currently off pressors. Continue current medical treatment with same dose Decadron 6 mg daily, Baricitinib, oral anticoagulation, COVID-19 vitamins Consult urology for hematuria Nephrology continues to follow for acute kidney injury Start nutritional support with tube feedings Follow-up inflammatory markers, follow-up labs tomorrow Prognosis is extremely guarded We'll continue to follow Condition is critical we'll continue to follow make further recommendation based on her progress. Critically care evaluation that was on a more than 30 minutes. Time with Patient: Greater than 30
[2021-02-04] MEDS: FLUTICASONE 110 MCG INHALER INHALATION SCH ×2 (08:27→20:16)
[2021-02-04] MEDS: ALBUTEROL HFA INHALER INHALATION SCH ×4 (08:27→20:16)
--- NOTE | 2021-02-04 08:35 | P.PN ---
Subjective Patient is seen in follow-up for acute kidney injury. Renal function a little better. Intubated. Good urine output. Off Levophed. Nonoliguric. Receiving IV fluids. Vital signs are stable. Off Levophed. General: The patient appeared well nourished and normally developed. HEENT: Intubated. LUNGS: Breath sounds decreased. HEART: Rate and Rhythm are regular. ABDOMEN: Soft, no distention. EXTREMITITES: Trace edema. Objective - Vital Signs Vital signs: Vital Signs Temp 94.8 F L 02/04/21 04:00 Pulse 49 L 02/04/21 07:00 Resp 30 H 02/04/21 07:00 BP 114/63 02/04/21 04:00 Pulse Ox 87 L 02/04/21 07:00 Intake & Output 02/03/21 02/04/21 02/04/21 18:59 06:59 18:59 Intake Total 2239.721 1534.402 Output Total 515 895 Balance 1724.721 639.402 Weight 74 kg Intake: IV 40 975 Sodium Chloride 0.9% 1, 40 000 ml @ 20 mls/hr IV . Q24H [facility] Rx#:[id number] Sodium Chloride 0.9% 1, 975 000 ml @ 75 mls/hr IV . [id number] [facility] Rx#:[id number] Intake, IV Titration 2199.721 559.402 Amount Cisatracurium 200 mg In 115.685 70.654 Sodium Chloride 0.9% 180 ml @ 2 MCG/KG/MIN 8.709 mls/hr IV .[id number] [facility] Rx #:[id number] Norepinephrine 4 mg In 151.299 188.955 Sodium Chloride 0.9% 250 ml @ 0.05 MCG/KG/MIN 13. 826 mls/hr IV .[id number] [facility] Rx#:[id number] Sodium Chloride 0.9% 1, 750 000 ml @ 75 mls/hr IV . [id number] [facility] Rx#:[id number] Sodium Chloride 0.9% 1, 1000 000 ml @ 999 mls/hr IV . Q1H1M [facility] Rx#:[id number] propofoL 1,000 mg In 182.737 299.793 Empty Bag 1 bag @ Titrate IV .Q0M [facility] Rx#: [id number] Output: Urine 515 895 Other: Voiding Method Indwelling Catheter Indwelling Catheter ABP, PAP, CO, CI - Last Documented Arterial Blood Pressure 110/42 - Labs CBC & Chem 7: 02/04/21 04:32 02/04/21 04:32 Labs: Abnormal Lab Results - Last 24 Hours (Table) 02/03/21 02/03/21 02/04/21 Range/Units 17:36 23:57 04:32 RBC 2.61 L (4.30-5.90) m/uL Hgb 7.4 L (13.0-17.5) gm/dL Hct 23.8 L (39.0-53.0) % Neutrophils # 9.8 H (1.3-7.7) k/uL Lymphocytes # 0.1 L (1.0-4.8) k/uL ABG pCO2 (35-45) mmHg ABG pO2 (83-108) mmHg ABG HCO3 (21-25) mmol/L ABG Total CO2 (19-24) mmol/L ABG O2 Saturation (94-97) % BUN (9-20) mg/dL Creatinine (0.66-1.25) mg/dL Glucose (74-99) mg/dL POC Glucose (mg/dL) 111 H 131 H (75-99) mg/dL Calcium (8.4-10.2) mg/dL 02/04/21 02/04/21 Range/Units 04:32 06:25 RBC (4.30-5.90) m/uL Hgb (13.0-17.5) gm/dL Hct (39.0-53.0) % Neutrophils # (1.3-7.7) k/uL Lymphocytes # (1.0-4.8) k/uL ABG pCO2 52 H (35-45) mmHg ABG pO2 59 L* (83-108) mmHg ABG HCO3 31 H (21-25) mmol/L ABG Total CO2 32 H (19-24) mmol/L ABG O2 Saturation 91.3 L (94-97) % BUN 45 H (9-20) mg/dL Creatinine 1.26 H (0.66-1.25) mg/dL Glucose 116 H (74-99) mg/dL POC Glucose (mg/dL) (75-99) mg/dL Calcium 7.6 L (8.4-10.2) mg/dL Microbiology - Last 24 Hours (Table) 02/02/21 19:00 Gram Stain - Preliminary Sputum Sputum Culture - Preliminary Assessment and Plan Plan: Assessment: 1. Acute kidney injury secondary to ATN secondary to infection and hypotension. Creatinine 1.26 today. Patient received IV contrast dye on January 26 and 01/30/2021 for CTA. Nonoliguric. 2. COVID-19 pneumonia. 3. Coronary disease status post CABG. 4. PE. Anticoagulation held due to hematuria. 5. Benign hypertension. Stable. Off vasopressors. 6. Acute hypoxic respiratory failure. Plan: Decrease rate of normal saline to 50 mL an hour. Continue to monitor renal function and urine output. Encouraged oral intake. Wean FiO2. Hold hydralazine for systolic blood pressure less than 120. Monitor hemoglobin. Will require blood transfusion if hemoglobin drops further.
[2021-02-04] MEDS: CHLORHEXIDINE GLUCONATE 15 ML CUP MUCOUS MEM SCH ×2 (09:23→20:09)
[2021-02-04] MEDS: CHOLECALCIFEROL 125 MCG (5000 IU) TABLET PO SCH (09:24)
[2021-02-04] MEDS: ZINC SULFATE 220 MG CAP PO SCH (09:24)
[2021-02-04] MEDS: ASCORBIC ACID 500 MG TAB PO SCH (09:24)
[2021-02-04] MEDS: TAMSULOSIN 0.4 MG CAP.ER.24H PO SCH ×2 (09:24→19:58)
[2021-02-04] MEDS: dexAMETHasone 2 MG TAB PO SCH (09:24)
[2021-02-04] MEDS: CYANOCOBALAMIN 500 MCG TAB PO SCH (09:24)
[2021-02-04] MEDS: METOPROLOL TARTRATE 25 MG TAB PO SCH ×2 (09:24→20:09)
[2021-02-04] MEDS: BALSALAZIDE DISODIUM 750 MG CAPSULE PO SCH ×3 (09:27→20:09)
--- NOTE | 2021-02-04 09:54 | XR ---
EXAMINATION TYPE: XR chest 1V portable DATE OF EXAM: 02/04/2021 COMPARISON: 02/04/2021 HISTORY: Tube placement TECHNIQUE: Single frontal view of the chest is obtained. FINDINGS: Diffuse interstitial infiltrates with cardiomegaly and postsurgical change. ET and NG tube noted with left-sided central line. No sizable pneumothorax. Biapical pleural thickening. IMPRESSION: Diffuse interstitial infiltrates are stable
--- NOTE | 2021-02-04 11:06 | P.GSCN ---
History of Present Illness Consult date: 02/04/21 Reason for Consult: Gross hematuria History of present illness: This is a 75-year-old male admitted to the hospital with COVID pneumonia. He a lso developed a pulmonary embolus, currently on Eliquis . Urology is consulted for gross hematuria . No previous known history of gross hematuria. He does have history of BPH currently on Flomax and Proscar. Catheter is draining hematuric urine without clots. Hemoglobin trending down to 7.4 from 9. Patient is currently intubated and sedated. Review of Systems ROS unobtainable: due to endotracheal tube Past Medical History Past Medical History: Hearing Disorder / Deafness, Hypertension, Prostate Disorder, Renal Disease Additional Past Medical History / Comment(s): Crohn's disease, nephrolithiasis, BPH, hypertension, COPD, tinnitus bilateral along with hearing impairment. History of Any Multi-Drug Resistant Organisms: None Reported Past Surgical History: Coronary Bypass/CABG, Hernia Repair, Tonsillectomy Additional Past Surgical History / Comment(s): lithotripsy, deviated septum, colonoscopies, umbilical and inguinal hernia repairs (laterality unknown). Past Anesthesia/Blood Transfusion Reactions: No Reported Reaction Past Psychological History: No Psychological Hx Reported Additional Psychological History / Comment(s): Pt resides with his spouse. He is independent. Smoking Status: Never smoker Past Alcohol Use History: Rare Additional Past Alcohol Use History / Comment(s): Pt started smoking in 1961 and quit in 1998. Past Drug Use History: None Reported - Past Family History Father Family Medical History: Cancer, Congestive Heart Failure (CHF), Coronary Artery Disease (CAD) Additional Family Medical History / Comment(s): Father had PROSTATE cancer. Father had a CABG in his 70s Mother Family Medical History: CVA/TIA Additional Family Medical History / Comment(s): Mother of a CVA at the age of 53yrs. Medications and Allergies Home Medications Medication Instructions Recorded Confirmed Type Cyanocobalamin (Vitamin B-12) 4,000 mcg PO DAILY 06/01/17 01/23/21 History [Vitamin B-12] Multivitamin [Men's Multi-Vitamin] 1 tab PO DAILY 06/01/17 01/23/21 History Aspirin 81 mg PO DAILY #30 chew 06/18/17 01/23/21 Rx Atorvastatin [Lipitor] 40 mg PO DAILY #30 tab 06/18/17 01/23/21 Rx Metoprolol Tartrate [Lopressor] 25 mg PO BID #60 tab 06/18/17 01/23/21 Rx Sildenafil Citrate [Sildenafil] 20 mg PO DAILY PRN 06/11/18 01/23/21 History Ascorbic Acid [Vitamin C] 2,000 mg PO DAILY 01/23/21 01/23/21 History Aspirin 325 mg PO Q6H PRN 01/23/21 01/23/21 History Budesonide [Pulmicort] 0.5 mg INHALATION RT-BID 01/23/21 01/23/21 History Cholecalciferol [Vitamin D3 (25 50 mcg PO DAILY 01/23/21 01/23/21 History Mcg = 1000 Iu)] Doxycycline [Vibramycin] 100 mg PO BID 01/23/21 01/23/21 History Ivermectin [Stromectol] 18 mg PO DAILY 01/23/21 01/23/21 History Mesalamine [Pentasa] 1,000 mg PO TID 01/23/21 01/23/21 History Quercetin With Bromelain 1 tab PO HS 01/23/21 01/23/21 History Tamsulosin [Flomax] 0.4 mg PO BID 01/23/21 01/23/21 History Zinc Gummy 1 tab PO HS 01/23/21 01/23/21 History hydrALAZINE HCL [Apresoline] 25 mg PO BID 01/23/21 01/23/21 History metroNIDAZOLE 1% GEL [Metrogel 1%] 1 applic TOPICAL BID 01/23/21 01/23/21 History predniSONE [Deltasone] 20 mg PO BID 01/23/21 01/23/21 History Allergies Allergy/AdvReac Type Severity Reaction Status Date / Time No Known Allergies Allergy Verified 01/23/21 08:22 Surgical - Exam Vital Signs Temp Pulse Resp BP Pulse Ox 97.5 F L 68 18 127/73 85 L 01/23/21 06:10 01/23/21 06:10 01/23/21 06:10 01/23/21 06:10 01/23/21 06:10 - General no distress, no pain - Respiratory Intubated - Abdomen Abdomen: soft, no non tender Results - Labs 02/04/21 04:32 02/04/21 04:32 Abnormal Lab Results - Last 24 Hours (Table) 02/03/21 02/03/21 02/04/21 Range/Units 17:36 23:57 04:32 RBC 2.61 L (4.30-5.90) m/uL Hgb 7.4 L (13.0-17.5) gm/dL Hct 23.8 L (39.0-53.0) % Neutrophils # 9.8 H (1.3-7.7) k/uL Lymphocytes # 0.1 L (1.0-4.8) k/uL ABG pCO2 (35-45) mmHg ABG pO2 (83-108) mmHg ABG HCO3 (21-25) mmol/L ABG Total CO2 (19-24) mmol/L ABG O2 Saturation (94-97) % BUN (9-20) mg/dL Creatinine (0.66-1.25) mg/dL Glucose (74-99) mg/dL POC Glucose (mg/dL) 111 H 131 H (75-99) mg/dL Calcium (8.4-10.2) mg/dL 02/04/21 02/04/21 Range/Units 04:32 06:25 RBC (4.30-5.90) m/uL Hgb (13.0-17.5) gm/dL Hct (39.0-53.0) % Neutrophils # (1.3-7.7) k/uL Lymphocytes # (1.0-4.8) k/uL ABG pCO2 52 H (35-45) mmHg ABG pO2 59 L* (83-108) mmHg ABG HCO3 31 H (21-25) mmol/L ABG Total CO2 32 H (19-24) mmol/L ABG O2 Saturation 91.3 L (94-97) % BUN 45 H (9-20) mg/dL Creatinine 1.26 H (0.66-1.25) mg/dL Glucose 116 H (74-99) mg/dL POC Glucose (mg/dL) (75-99) mg/dL Calcium 7.6 L (8.4-10.2) mg/dL Microbiology - Last 24 Hours (Table) 02/02/21 19:00 Gram Stain - Final Sputum Sputum Culture - Final Diabetes panel 02/04/21 Range/Units 04:32 Sodium 138 (137-145) mmol/L Potassium 4.3 (3.5-5.1) mmol/L Chloride 107 (98-107) mmol/L Carbon Dioxide 29 (22-30) mmol/L BUN 45 H (9-20) mg/dL Creatinine 1.26 H (0.66-1.25) mg/dL Glucose 116 H (74-99) mg/dL Calcium 7.6 L (8.4-10.2) mg/dL Calcium panel 02/04/21 Range/Units 04:32 Calcium 7.6 L (8.4-10.2) mg/dL Pituitary panel 02/04/21 Range/Units 04:32 Sodium 138 (137-145) mmol/L Potassium 4.3 (3.5-5.1) mmol/L Chloride 107 (98-107) mmol/L Carbon Dioxide 29 (22-30) mmol/L BUN 45 H (9-20) mg/dL Creatinine 1.26 H (0.66-1.25) mg/dL Glucose 116 H (74-99) mg/dL Calcium 7.6 L (8.4-10.2) mg/dL Adrenal panel 02/04/21 Range/Units 04:32 Sodium 138 (137-145) mmol/L Potassium 4.3 (3.5-5.1) mmol/L Chloride 107 (98-107) mmol/L Carbon Dioxide 29 (22-30) mmol/L BUN 45 H (9-20) mg/dL Creatinine 1.26 H (0.66-1.25) mg/dL Glucose 116 H (74-99) mg/dL Calcium 7.6 L (8.4-10.2) mg/dL Assessment and Plan Assessment: 75-year-old male admitted to the hospital with COVID pneumonia, on Eliquis for PE. Developed gross hematuria during hospital stay. Catheter is draining hematuric urine. -Irrigate Mary when necessary with normal saline -Once patient clinical status improves he will need an outpatient cystoscopy and a CT urogram -Hold the eliquis
[2021-02-04 11:41] LABS: INR 1.2 (<1.2); Partial Thromboplastin Time 21.1 sec (22.0-30.0); Prothrombin Time 12.1 sec (9.0-12.0)
[2021-02-04 11:58] LABS: Glucose,Whole Blood 110 mg/dL (75-99)
[2021-02-04] MEDS: BARICITINIB 2 MG TABLET PO SCH (13:08)
[2021-02-04] MEDS: hydrALAZINE HCL 25 MG TAB PO SCH ×3 (13:09→20:24)
[2021-02-04 14:15] LABS: HCT 25.5 % (39.0-53.0); HGB 7.9 gm/dL (13.0-17.5); Hypochromasia Moderate; MCH 28.5 pg (25.0-35.0); MCHC 31.2 g/dL (31.0-37.0); MCV 91.4 fL (80.0-100.0); Mean Platelet Volume 8.3; Platelet Count 282 k/uL (150-450); RBC 2.78 m/uL (4.30-5.90); RDW 14.9 % (11.5-15.5); WBC 10.9 k/uL (3.8-10.6)
[2021-02-04] MEDS: CISATRACURIUM 200 MG in SODIUM CHLORIDE 0.9% 180 ML IV SCH ×2 (17:57→23:55)
[2021-02-04 18:13] LABS: Glucose,Whole Blood 122 mg/dL (75-99)
--- NOTE | 2021-02-04 23:54 | P.PN ---
Subjective From records: 74-year-old patient who follows with Dr. Mauricio Keith. Tonic stable medical conditions include hypertension, Crohn's disease, nephrolithiasis, BPH, hypertension, tinnitus, COPD, CAD with bypass. EF of 20-25%. Presented with shortness of breath. Diagnosed with COVID 19 on January 18 symptoms starting 1 day before. He was found to be hypoxic at home. Upon arrival he was 85%. Patient declined treatment with Remdesivir. Patient had been taking ivermectin as outpatient. She requested this to be continued. This was declined by the admitting team as this was not approved treatment. Patient not vaccinated against COVID. She did with subcu Lovenox and dexamethasone. January 24: Patient feeling better. On 3 L nasal cannula. Oral intake fair. Up in a bed. Slight cough. January 25: Sitting up in a recliner. Tired. Has some chest tightness. 92% on 4 L. Oral intake good. January 26: Bit more short of breath. Oxygen requirement: Up to 15 L. Had low-grade fever. Eating about 50-75%. Tired. Up in a chair. January 27: Short of breath. Sitting at the edge of the bed. 15 L nasal cannula. Decreased appetite. January 28: Laying in bed. Tired. Short of breath. On 15 L nonrebreather. Oral intake fair. Started on Baricitinib by pulmonary January 29: Patient is become more short of breath. Placed on BiPAP. Decreased oral intake. Tired. On Baricitinib, dexamethasone. January 30: Sitting up in a chair. Using BiPAP. Short of breath. Decreased oral intake. On Baricitinib) dexamethasone. Acute PE on CT chest. Started on eliquis January 31: Sitting at the edge of the bed. BiPAP. Short of breath. Tired. On eliquis, on Baricitinib, dexamethasone. February 01: Laying in bed. Short of breath. BiPAP. Tired. On Baricitinib, dexamethasone, eliquis. Eating reasonably well. February 02: Rather tired short of breath BiPAP 100%. On dexamethasone, eliquis February 03: ICU: Intubated yesterday. Prone position. Ventilator FiO2 70 PEEP of 12. Drips included propofol and Nimbex. Subjective: 02/04/2021 This is a pleasant 75 years old male with multiple medical problems resented wi th respiratory distress secondary to bilateral Covid pneumonia with hypoxemia requiring intubation and mechanical ventilation, patient apparently was intubated yesterday while he was in the ICU. Patient is been followed closely in the ICU and his been treated with dexamethasone, vitamin C and D and zinc. Also he is on Lovenox and Pepcid. Patient also with hematuria while he is on blood thinner. Deputy Sheriff/Investigator team on the case. Also urologist was called. For hematuria and recommended outpatient cystoscopy and urethrogram Objective - Vital Signs Vital signs: Vital Signs Temp 97.3 F L 02/04/21 08:00 Pulse 58 L 02/04/21 09:00 Resp 30 H 02/04/21 09:00 BP 114/63 02/04/21 04:00 Pulse Ox 88 L 02/04/21 09:00 Intake & Output 02/03/21 02/04/21 02/04/21 18:59 06:59 18:59 Intake Total 2239.721 1534.402 206.286 Output Total 515 895 130 Balance 1724.721 639.402 76.286 Weight 74 kg Intake: IV 40 975 125 Sodium Chloride 0.9% 1, 40 000 ml @ 20 mls/hr IV . Q24H [facility] Rx#:[id number] Sodium Chloride 0.9% 1, 975 125 000 ml @ 75 mls/hr IV . [id number] [facility] Rx#:[id number] Intake, IV Titration 2199.721 559.402 81.286 Amount Cisatracurium 200 mg In 115.685 70.654 Sodium Chloride 0.9% 180 ml @ 2 MCG/KG/MIN 8.709 mls/hr IV .[id number] [facility] Rx #:[id number] Norepinephrine 4 mg In 151.299 188.955 Sodium Chloride 0.9% 250 ml @ 0.05 MCG/KG/MIN 13. 826 mls/hr IV .[id number] [facility] Rx#:[id number] Sodium Chloride 0.9% 1, 750 000 ml @ 75 mls/hr IV . [id number] [facility] Rx#:[id number] Sodium Chloride 0.9% 1, 1000 000 ml @ 999 mls/hr IV . Q1H1M [facility] Rx#:[id number] propofoL 1,000 mg In 182.737 299.793 81.286 Empty Bag 1 bag @ Titrate IV .Q0M [facility] Rx#: [id number] Output: Urine 515 895 130 Other: Voiding Method Indwelling Catheter Indwelling Catheter ABP, PAP, CO, CI - Last Documented Arterial Blood Pressure 132/44 - Exam -GENERAL: The patient is intubated and sedated HEENT: Pupils are round and equally reacting to light. EOMI. No scleral icterus. No conjunctival pallor. Normocephalic, atraumatic. No pharyngeal erythema. No thyromegaly. CARDIOVASCULAR: S1 and S2 present. No murmurs, rubs, or gallops. PULMONARY: Chest is clear to auscultation, no wheezing or crackles. ABDOMEN: Soft, nontender, nondistended, normoactive bowel sounds. No palpable organomegaly. MUSCULOSKELETAL: No joint swelling or deformity. EXTREMITIES: No cyanosis, clubbing, or pedal edema. NEUROLOGICAL: Gross neurological examination did not reveal any focal deficits. SKIN: No rashes. no petechiae. - Labs CBC & Chem 7: 02/04/21 14:06 02/04/21 04:32 Labs: Abnormal Lab Results - Last 24 Hours (Table) 02/03/21 02/03/21 02/04/21 Range/Units 17:36 23:57 04:32 RBC 2.61 L (4.30-5.90) m/uL Hgb 7.4 L (13.0-17.5) gm/dL Hct 23.8 L (39.0-53.0) % Neutrophils # 9.8 H (1.3-7.7) k/uL Lymphocytes # 0.1 L (1.0-4.8) k/uL ABG pCO2 (35-45) mmHg ABG pO2 (83-108) mmHg ABG HCO3 (21-25) mmol/L ABG Total CO2 (19-24) mmol/L ABG O2 Saturation (94-97) % BUN (9-20) mg/dL Creatinine (0.66-1.25) mg/dL Glucose (74-99) mg/dL POC Glucose (mg/dL) 111 H 131 H (75-99) mg/dL Calcium (8.4-10.2) mg/dL 02/04/21 02/04/21 Range/Units 04:32 06:25 RBC (4.30-5.90) m/uL Hgb (13.0-17.5) gm/dL Hct (39.0-53.0) % Neutrophils # (1.3-7.7) k/uL Lymphocytes # (1.0-4.8) k/uL ABG pCO2 52 H (35-45) mmHg ABG pO2 59 L* (83-108) mmHg ABG HCO3 31 H (21-25) mmol/L ABG Total CO2 32 H (19-24) mmol/L ABG O2 Saturation 91.3 L (94-97) % BUN 45 H (9-20) mg/dL Creatinine 1.26 H (0.66-1.25) mg/dL Glucose 116 H (74-99) mg/dL POC Glucose (mg/dL) (75-99) mg/dL Calcium 7.6 L (8.4-10.2) mg/dL Microbiology - Last 24 Hours (Table) 02/02/21 19:00 Gram Stain - Final Sputum Sputum Culture - Final Assessment and Plan Assessment: Bilateral Covid pneumonia Acute hypoxic respiratory failure Increased inflammatory markers Hematuria Acute kidney injury History of PE on anticoagulation Plan: This is a pleasant 75 years old male who presents with Bilateral Covid pneumonia and hypoxia Continue with vitamin C, vitamin D, and zinc. Continue with dexamethasone Pulmonary team consult urology and nephrology Patient will benefit from outpatient cystoscopy Labs and medication were reviewed.. Continue same treatment. Continue with symptomatic treatment. Resume home medication. Monitor lytes and vitals. DVT and GI prophylaxis. Further recommendationsas per clinical course of the patient DVT prophylaxis: SubcutaneousLovenox GI Prophylaxis: Pepcid PT/OT: Pending Prognosis is guarded
[2021-02-05 00:15] LABS: Glucose,Whole Blood 117 mg/dL (75-99)
[2021-02-05] MEDS: ARTIFICIAL TEARS-HYPROMELLOSE DROPS 15 ML BTL BOTH EYES SCH ×7 (01:43→23:59)
[2021-02-05] MEDS: SODIUM CHLORIDE 0.9% 1,000 ML IV SCH ×2 (01:44→13:32)
[2021-02-05 04:20] LABS: Basophils % (A) 0 %; Eosinophils % (A) 0 %; HCT 25.2 % (39.0-53.0); HGB 7.8 gm/dL (13.0-17.5); Hypochromasia Moderate; Lymphocytes # (A) 0.1 k/uL (1.0-4.8); Lymphocytes % (A) 1 %; MCH 28.6 pg (25.0-35.0); MCHC 31.2 g/dL (31.0-37.0); MCV 91.8 fL (80.0-100.0); Mean Platelet Volume 7.9; Monocytes # (A) 0.3 k/uL (0-1.0); Monocytes % (A) 2 %; Neutrophils # (A) 17.1 k/uL (1.3-7.7); Neutrophils % (A) 97 %; Platelet Count 336 k/uL (150-450); RBC 2.74 m/uL (4.30-5.90); RDW 14.8 % (11.5-15.5); WBC 17.6 k/uL (3.8-10.6)
[2021-02-05 04:59] LABS: Prothrombin Time 10.9 sec (9.0-12.0)
[2021-02-05 05:35] LABS: Glucose,Whole Blood 119 mg/dL (75-99)
[2021-02-05 05:59] LABS: ABG Base Excess 5.4 mmol/L; ABG HCO3 31 mmol/L (21-25); ABG PCO2 53 mmHg (35-45); ABG PH 7.37 (7.35-7.45); ABG TCO2 32 mmol/L (19-24); Allen Test Performed? Yes
[2021-02-05 06:21] LABS: ABG PO2 54 mmHg (83-108)
[2021-02-05] MEDS: ALBUTEROL HFA INHALER INHALATION SCH ×4 (07:50→20:36)
[2021-02-05] MEDS: FLUTICASONE 110 MCG INHALER INHALATION SCH (07:50)
--- NOTE | 2021-02-05 08:18 | P.PN ---
Subjective Progress Note Date: 02/05/21 02/05/2021, the patient is being seen for a follow-up. The patient remains intubated on a mechanical ventilator. Note that the patient was intubated on 02/02/2021 due to complications of COVID 19 related pneumonia. On yesterday's evaluation, the patient was having hematuria and bleeding from the central line site and some nosebleeds. For that reason, I stopped the anticoagulation with Eliquis. I was not convinced that the patient had a pulmonary embolism. I reviewed the CAT scan of the chest and there was no clear indication for any filling defect. Doppler of the lower extremities were negative. As such, Eliquis was discontinued and the patient will be started today on Lovenox for DVT prophylaxis 40 mg subcu on a daily basis. Meanwhile, the patient remains sedated. This morning, hitting his on propofol which is running at 40 mcg/kg per minute. The patient remains paralyzed with Nimbex at 1.5 mcg/kg per minute. He is quite successful mechanical ventilator. He remains on assist control mode at the rate of 30 with a tidal volume of 450 and FiO2 of 55% with a PEEP of 12. Blood gases from today shows a pH of 7.37 with a pCO2 of 53 and pO2 of 54. His peak airway pressure is 29 which is not significantly elevated. Chest x-ray showing diffuse bilateral pulmonary infiltrates, essentially unchanged compared to yesterday. ET tube is in a good location. No significant interval worsening of the chest x-ray findings and the patient diffuse bilateral pulmonary infiltrates. The patient also has a left subclavian triple-lumen catheter in place. In terms of COVID 19 treatment, the patient is on Decadron 6 mg on a daily basis and the patient is also on Baricitinib per protocol. In terms of his inflammatory markers, his LDH was significantly elevated and he dropped down to 977. His d-dimer is were also considerably elevated, dropped down to 23.3 on today's evaluation. No active bleeding. Hemoglobin is stable at 7.8 although I dropped at least 2 g over the past several days. White cell count is at 17.6. As far as kidney failure, the patient has a stable creatinine of 1.5 with a mean of 55 and the rest of the electrolytes are all stable. The patient is receiving enteral feeding for nutritional support. He is currently on vitamin AF at 1.2 at 20 mL an hour which is currently at goal. Objective - Vital Signs Vital signs: Vital Signs Temp 98.6 F 02/05/21 04:00 Pulse 85 02/05/21 06:00 Resp 30 H 02/05/21 06:00 BP 123/63 02/05/21 06:00 Pulse Ox 84 L 02/05/21 06:00 Intake & Output 02/04/21 02/05/21 02/05/21 18:59 06:59 18:59 Intake Total 884.231 2683.993 70 Output Total 585 800 55 Balance 402.383 352.993 15 Weight 74 kg 78 kg Intake: IV 575 600 50 Sodium Chloride 0.9% 1, 575 600 50 000 ml @ 50 mls/hr IV . Q20H [facility]ERY[facility] Rx#:[id number] Intake, IV Titration 412.383 292.993 Amount Cisatracurium 200 mg In 144.575 38.974 Sodium Chloride 0.9% 180 ml @ 2 MCG/KG/MIN 8.709 mls/hr IV .[id number] [facility] Rx #:[id number] propofoL 1,000 mg In 267.808 254.019 Empty Bag 1 bag @ Titrate IV .Q0M [facility]ERYL Rx#: [id number] Tube Feeding 170 20 Other 90 Output: Urine 585 800 55 Other: Voiding Method Indwelling Catheter Indwelling Catheter ABP, PAP, CO, CI - Last Documented Arterial Blood Pressure 119/72 - Exam GENERAL EXAM: Intubated, sedated and paralyzed 75-year-old white male, on assist control mode of ventilation HEAD: Normocephalic/atraumatic. EYES: Normal reaction of pupils, equal size. Conjunctiva pink, sclera white. NOSE: Clear with pink turbinates. THROAT: No erythema or exudates. NECK: No masses, no JVD, no thyroid enlargement, no adenopathy. CHEST: No chest wall deformity. Symmetrical expansion. LUNGS: Equal air entry with diffuse bilateral crackles CVS: Regular rate and rhythm, normal S1 and S2, no gallops, no murmurs, no rubs ABDOMEN: Soft, nontender. No hepatosplenomegaly, normal bowel sounds, no guarding or rigidity. EXTREMITIES: No clubbing, no edema, no cyanosis, 2+ pulses and upper and lower extremities. MUSCULOSKELETAL: Muscle strength and tone normal. SPINE: No scoliosis or deformity SKIN: No rashes CENTRAL NERVOUS SYSTEM: Intubated, No focal deficits, tone is normal in all 4 extremities. PSYCHIATRIC: Sedated, paralyzed - Labs CBC & Chem 7: 02/05/21 04:05 02/05/21 04:05 Labs: Abnormal Lab Results - Last 24 Hours (Table) 02/04/21 02/04/21 02/04/21 Range/Units 10:51 10:51 10:51 WBC (3.8-10.6) k/uL RBC (4.30-5.90) m/uL Hgb (13.0-17.5) gm/dL Hct (39.0-53.0) % Neutrophils # (1.3-7.7) k/uL Lymphocytes # (1.0-4.8) k/uL PT 12.1 H (9.0-12.0) sec INR 1.2 H (<1.2) APTT 21.1 L (22.0-30.0) sec D-Dimer 25.03 H (<0.60) mg/L FEU ABG pCO2 (35-45) mmHg ABG pO2 (83-108) mmHg ABG HCO3 (21-25) mmol/L ABG Total CO2 (19-24) mmol/L ABG O2 Saturation (94-97) % Carbon Dioxide (22-30) mmol/L BUN (9-20) mg/dL Creatinine (0.66-1.25) mg/dL Glucose (74-99) mg/dL POC Glucose (mg/dL) (75-99) mg/dL Calcium (8.4-10.2) mg/dL Lactate Dehydrogenase 1055 H (313-618) U/L Procalcitonin 0.22 H (0.02-0.09) ng/mL 02/04/21 02/04/21 02/04/21 Range/Units 11:56 14:06 18:12 WBC 10.9 H (3.8-10.6) k/uL RBC 2.78 L (4.30-5.90) m/uL Hgb 7.9 L (13.0-17.5) gm/dL Hct 25.5 L (39.0-53.0) % Neutrophils # (1.3-7.7) k/uL Lymphocytes # (1.0-4.8) k/uL PT (9.0-12.0) sec INR (<1.2) APTT (22.0-30.0) sec D-Dimer (<0.60) mg/L FEU ABG pCO2 (35-45) mmHg ABG pO2 (83-108) mmHg ABG HCO3 (21-25) mmol/L ABG Total CO2 (19-24) mmol/L ABG O2 Saturation (94-97) % Carbon Dioxide (22-30) mmol/L BUN (9-20) mg/dL Creatinine (0.66-1.25) mg/dL Glucose (74-99) mg/dL POC Glucose (mg/dL) 110 H 122 H (75-99) mg/dL Calcium (8.4-10.2) mg/dL Lactate Dehydrogenase (313-618) U/L Procalcitonin (0.02-0.09) ng/mL 02/05/21 02/05/21 02/05/21 Range/Units 00:12 04:05 04:05 WBC (3.8-10.6) k/uL RBC (4.30-5.90) m/uL Hgb (13.0-17.5) gm/dL Hct (39.0-53.0) % Neutrophils # (1.3-7.7) k/uL Lymphocytes # (1.0-4.8) k/uL PT (9.0-12.0) sec INR (<1.2) APTT 20.0 L (22.0-30.0) sec D-Dimer 23.35 H (<0.60) mg/L FEU ABG pCO2 (35-45) mmHg ABG pO2 (83-108) mmHg ABG HCO3 (21-25) mmol/L ABG Total CO2 (19-24) mmol/L ABG O2 Saturation (94-97) % Carbon Dioxide 32 H (22-30) mmol/L BUN 55 H (9-20) mg/dL Creatinine 1.30 H (0.66-1.25) mg/dL Glucose 106 H (74-99) mg/dL POC Glucose (mg/dL) 117 H (75-99) mg/dL Calcium 8.0 L (8.4-10.2) mg/dL Lactate Dehydrogenase 977 H (313-618) U/L Procalcitonin (0.02-0.09) ng/mL 02/05/21 02/05/21 02/05/21 Range/Units 04:05 05:33 05:55 WBC 17.6 H (3.8-10.6) k/uL RBC 2.74 L (4.30-5.90) m/uL Hgb 7.8 L (13.0-17.5) gm/dL Hct 25.2 L (39.0-53.0) % Neutrophils # 17.1 H (1.3-7.7) k/uL Lymphocytes # 0.1 L (1.0-4.8) k/uL PT (9.0-12.0) sec INR (<1.2) APTT (22.0-30.0) sec D-Dimer (<0.60) mg/L FEU ABG pCO2 53 H (35-45) mmHg ABG pO2 54 L* (83-108) mmHg ABG HCO3 31 H (21-25) mmol/L ABG Total CO2 32 H (19-24) mmol/L ABG O2 Saturation 87.0 L (94-97) % Carbon Dioxide (22-30) mmol/L BUN (9-20) mg/dL Creatinine (0.66-1.25) mg/dL Glucose (74-99) mg/dL POC Glucose (mg/dL) 119 H (75-99) mg/dL Calcium (8.4-10.2) mg/dL Lactate Dehydrogenase (313-618) U/L Procalcitonin (0.02-0.09) ng/mL Microbiology - Last 24 Hours (Table) 02/02/21 19:00 Gram Stain - Final Sputum Sputum Culture - Final Assessment and Plan Plan: #1. Acute hypoxic respiratory failure secondary to COVID-19 pneumonia. Patient is not nonvaccinated adult, his symptoms started on 01/17/2021. Patient took ivermectin on an outpatient basis prescribed by his [place] doctor. Patient refused Remdesivir. Is currently on Decadron, prophylactic anticoagulation, and COVID-19 vitamins. Patient was started on Baricitinib today on 01/27/2021 in view of progressive hypoxia and patient is on BiPAP support now on 01/29/2021 with pressures of 12 and 6 and FiO2 of 100%. On 02/02/2021 patient was emergently transferred to the intensive care unit where he was intubated. Currently on assist control mode of ventilation . The patient remains intubated on mechanical ventilator. The patient remains sedated and paralyzed. Blood gases was noted. Oxygenation is borderline and limited and there is or is not a whole room for weaning at this point in time. Chest exam findings are stable. Hemodynamically stable. #2. Questionable right lower lobe partially occlusive PE with subsegmental extension diagnosed by CT angiogram of the chest on 01/30/2021. Patient has been started on Eliquis 10 mg twice daily and the patient has demonstrated bleeding complications, probably due to anticoagulation at a higher dose of Eliquis in combination with aspirin.The patient was taken off and the coagulation yesterday due to concerns of bleeding and the patient will be started on Lovenox for DVT prophylaxis. #3. Acute kidney injury, possibly related to COVID-19 related ATN, Creatinine stable at 1.3 #4. Hematuria, see discussion above, improved #5. Elevated inflammatory markers related to the above, slightly improved and worsened again today on 01/31/2021. #6. Elevated transaminases, improving #7. History of COPD with diffuse centrilobar emphysema #8. Former smoker #9. Coronary artery disease with previous coronary artery bypass grafting 4 in 2018 #10. Mitral valve repair #11. Crohn's disease #12. Hypertension #13. History of systolic CHF #14. Elevated d-dimer, and without CT evidence of pulmonary embolism, or DVT on bilateral lower extremity Dopplers #15. Acute kidney injury possibly related to COVID-19 ATN, stable #16 acute drop in hemoglobin, anemia, consolidated to bleed as mentioned above. Hemoglobin currently is at 7.8 Plan: Continue ventilator support, oxygenation is borderline. Based on that, increase the PEEP up to 15, tidal volume down to 420 and increased FiO2 at 60%. We will monitor the situation and we're going to phone the patient again today. Start the patient on Lovenox 40 mg subcu for DVT prophylaxis stop aspirin Repeat a Doppler of the lower extremities to make sure the patient does not have any DVT. The d-dimer is improving. Repeat inflammatory markers including d-dimer and a pro-calcitonin level The patient is currently off pressors. Continue current medical treatment with same dose Decadron 6 mg daily, Baricitinib, oral anticoagulation, COVID-19 vitamins Nephrology continues to follow for acute kidney injury, creatinine stable Start nutritional support with tube feedings Follow-up inflammatory markers, follow-up labs tomorrow Prognosis is extremely guarded We'll continue to follow Condition is critical we'll continue to follow make further recommendation based on her progress. Critically care evaluation that was on a more than 30 minutes. Time with Patient: Greater than 30 Time with Patient: Greater than 30
--- NOTE | 2021-02-05 08:35 | P.PN ---
Subjective Patient is seen in follow-up for acute kidney injury. Renal function stable. Intubated. Good urine output. Off Levophed. Nonoliguric. Receiving IV fluids. Also on tube feeds now. Vital signs are stable. Off Levophed. HEENT: Intubated. LUNGS: Breath sounds decreased. HEART: Rate and Rhythm are regular. ABDOMEN: Soft, no distention. EXTREMITITES: Trace edema. Objective - Vital Signs Vital signs: Vital Signs Temp 98.6 F 02/05/21 04:00 Pulse 85 02/05/21 06:00 Resp 30 H 02/05/21 06:00 BP 123/63 02/05/21 06:00 Pulse Ox 84 L 02/05/21 06:00 Intake & Output 02/04/21 02/05/21 02/05/21 18:59 06:59 18:59 Intake Total 182.073 2458.993 70 Output Total 585 800 55 Balance 402.383 352.993 15 Weight 74 kg 78 kg Intake: IV 575 600 50 Sodium Chloride 0.9% 1, 575 600 50 000 ml @ 50 mls/hr IV . Q20H [facility] Rx#:[id number] Intake, IV Titration 412.383 292.993 Amount Cisatracurium 200 mg In 144.575 38.974 Sodium Chloride 0.9% 180 ml @ 2 MCG/KG/MIN 8.709 mls/hr IV .[id number] [facility] Rx #:[id number] propofoL 1,000 mg In 267.808 254.019 Empty Bag 1 bag @ Titrate IV .Q0M [facility] Rx#: [id number] Tube Feeding 170 20 Other 90 Output: Urine 585 800 55 Other: Voiding Method Indwelling Catheter Indwelling Catheter ABP, PAP, CO, CI - Last Documented Arterial Blood Pressure 119/72 - Labs CBC & Chem 7: 02/05/21 04:05 02/05/21 04:05 Labs: Abnormal Lab Results - Last 24 Hours (Table) 02/04/21 02/04/21 02/04/21 Range/Units 10:51 10:51 10:51 WBC (3.8-10.6) k/uL RBC (4.30-5.90) m/uL Hgb (13.0-17.5) gm/dL Hct (39.0-53.0) % Neutrophils # (1.3-7.7) k/uL Lymphocytes # (1.0-4.8) k/uL PT 12.1 H (9.0-12.0) sec INR 1.2 H (<1.2) APTT 21.1 L (22.0-30.0) sec D-Dimer 25.03 H (<0.60) mg/L FEU ABG pCO2 (35-45) mmHg ABG pO2 (83-108) mmHg ABG HCO3 (21-25) mmol/L ABG Total CO2 (19-24) mmol/L ABG O2 Saturation (94-97) % Carbon Dioxide (22-30) mmol/L BUN (9-20) mg/dL Creatinine (0.66-1.25) mg/dL Glucose (74-99) mg/dL POC Glucose (mg/dL) (75-99) mg/dL Calcium (8.4-10.2) mg/dL Lactate Dehydrogenase 1055 H (313-618) U/L Procalcitonin 0.22 H (0.02-0.09) ng/mL 02/04/21 02/04/21 02/04/21 Range/Units 11:56 14:06 18:12 WBC 10.9 H (3.8-10.6) k/uL RBC 2.78 L (4.30-5.90) m/uL Hgb 7.9 L (13.0-17.5) gm/dL Hct 25.5 L (39.0-53.0) % Neutrophils # (1.3-7.7) k/uL Lymphocytes # (1.0-4.8) k/uL PT (9.0-12.0) sec INR (<1.2) APTT (22.0-30.0) sec D-Dimer (<0.60) mg/L FEU ABG pCO2 (35-45) mmHg ABG pO2 (83-108) mmHg ABG HCO3 (21-25) mmol/L ABG Total CO2 (19-24) mmol/L ABG O2 Saturation (94-97) % Carbon Dioxide (22-30) mmol/L BUN (9-20) mg/dL Creatinine (0.66-1.25) mg/dL Glucose (74-99) mg/dL POC Glucose (mg/dL) 110 H 122 H (75-99) mg/dL Calcium (8.4-10.2) mg/dL Lactate Dehydrogenase (313-618) U/L Procalcitonin (0.02-0.09) ng/mL 02/05/21 02/05/21 02/05/21 Range/Units 00:12 04:05 04:05 WBC (3.8-10.6) k/uL RBC (4.30-5.90) m/uL Hgb (13.0-17.5) gm/dL Hct (39.0-53.0) % Neutrophils # (1.3-7.7) k/uL Lymphocytes # (1.0-4.8) k/uL PT (9.0-12.0) sec INR (<1.2) APTT 20.0 L (22.0-30.0) sec D-Dimer 23.35 H (<0.60) mg/L FEU ABG pCO2 (35-45) mmHg ABG pO2 (83-108) mmHg ABG HCO3 (21-25) mmol/L ABG Total CO2 (19-24) mmol/L ABG O2 Saturation (94-97) % Carbon Dioxide 32 H (22-30) mmol/L BUN 55 H (9-20) mg/dL Creatinine 1.30 H (0.66-1.25) mg/dL Glucose 106 H (74-99) mg/dL POC Glucose (mg/dL) 117 H (75-99) mg/dL Calcium 8.0 L (8.4-10.2) mg/dL Lactate Dehydrogenase 977 H (313-618) U/L Procalcitonin (0.02-0.09) ng/mL 02/05/21 02/05/21 02/05/21 Range/Units 04:05 05:33 05:55 WBC 17.6 H (3.8-10.6) k/uL RBC 2.74 L (4.30-5.90) m/uL Hgb 7.8 L (13.0-17.5) gm/dL Hct 25.2 L (39.0-53.0) % Neutrophils # 17.1 H (1.3-7.7) k/uL Lymphocytes # 0.1 L (1.0-4.8) k/uL PT (9.0-12.0) sec INR (<1.2) APTT (22.0-30.0) sec D-Dimer (<0.60) mg/L FEU ABG pCO2 53 H (35-45) mmHg ABG pO2 54 L* (83-108) mmHg ABG HCO3 31 H (21-25) mmol/L ABG Total CO2 32 H (19-24) mmol/L ABG O2 Saturation 87.0 L (94-97) % Carbon Dioxide (22-30) mmol/L BUN (9-20) mg/dL Creatinine (0.66-1.25) mg/dL Glucose (74-99) mg/dL POC Glucose (mg/dL) 119 H (75-99) mg/dL Calcium (8.4-10.2) mg/dL Lactate Dehydrogenase (313-618) U/L Procalcitonin (0.02-0.09) ng/mL Microbiology - Last 24 Hours (Table) 02/02/21 19:00 Gram Stain - Final Sputum Sputum Culture - Final Assessment and Plan Plan: Assessment: 1. Acute kidney injury secondary to ATN secondary to infection and hypotension. Creatinine 1.3 today. Patient received IV contrast dye on January 26 and 01/30/2021 for CTA. Nonoliguric. 2. COVID-19 pneumonia. 3. Coronary disease status post CABG. 4. PE. Anticoagulation was held due to hematuria. Now on Lovenox. 5. Benign hypertension. Stable. Off vasopressors. 6. Acute hypoxic respiratory failure. Plan: Maintain tube feeds. Hep-Lock IV fluids. Continue to monitor renal function and urine output. Encouraged oral intake. Wean FiO2. Hold hydralazine for systolic blood pressure less than 120.
[2021-02-05] MEDS ORDERED: ENOXAPARIN 40 MG/0.4 ML SYRINGE SQ SCH ×2 (09:00→10:22)
--- NOTE | 2021-02-05 09:06 | XR ---
EXAMINATION TYPE: XR chest 1V portable DATE OF EXAM: 02/05/2021 COMPARISON: 02/04/2021 HISTORY: Tube placement TECHNIQUE: Single frontal view of the chest is obtained. FINDINGS: Diffuse interstitial infiltrates with cardiomegaly and postsurgical change. ET and NG tube noted with left-sided central line. No sizable pneumothorax. Biapical pleural thickening. IMPRESSION: Stable diffuse bilateral infiltrates.
[2021-02-05] MEDS: ASCORBIC ACID 500 MG TAB PO SCH (09:36)
[2021-02-05] MEDS: CYANOCOBALAMIN 500 MCG TAB PO SCH (09:36)
[2021-02-05] MEDS: TAMSULOSIN 0.4 MG CAP.ER.24H PO SCH ×2 (09:36→19:56)
[2021-02-05] MEDS: CHLORHEXIDINE GLUCONATE 15 ML CUP MUCOUS MEM SCH ×2 (09:38→20:35)
[2021-02-05] MEDS: dexAMETHasone 2 MG TAB PO SCH (09:38)
[2021-02-05] MEDS: METOPROLOL TARTRATE 25 MG TAB PO SCH ×2 (09:38→20:35)
[2021-02-05] MEDS: ZINC SULFATE 220 MG CAP PO SCH (09:39)
[2021-02-05] MEDS: CHOLECALCIFEROL 125 MCG (5000 IU) TABLET PO SCH (09:39)
--- NOTE | 2021-02-05 09:40 | US ---
EXAMINATION TYPE: US venous doppler duplex LE BI DATE OF EXAM: 02/05/2021 8:56 AM COMPARISON: 01/29/2021 CLINICAL HISTORY: Covid, Elevated d dimer. SIDE PERFORMED: Bilateral TECHNIQUE: The lower extremity deep venous system is examined utilizing real time linear array sonog navi with graded compression, doppler sonography and color-flow sonography. VESSELS IMAGED: Common Femoral Vein Deep Femoral Vein Greater Saphenous Vein * Femoral Vein Popliteal Vein Small Saphenous Vein * Proximal Calf Veins (* superficial vessels) Right Leg: Thrombus seen within the gastrocnemius vein Left Leg: Thrombus seen in the popliteal vein. IMPRESSION: 1. Exam positive for DVT left popliteal vein. 2. Exam positive for right lower extremity superficial venous thrombosis..
[2021-02-05] MEDS: BALSALAZIDE DISODIUM 750 MG CAPSULE PO SCH ×3 (09:45→20:35)
[2021-02-05] MEDS: ENOXAPARIN 80 MG/0.8 ML SYRINGE SQ SCH ×2 (10:41→20:35)
[2021-02-05 11:31] LABS: ABG HCO3 33 mmol/L (21-25); ABG Oxygen Saturation 90.1 % (94-97); ABG PCO2 70 mmHg (35-45); ABG PH 7.28 (7.35-7.45); ABG PO2 66 mmHg (83-108); ABG TCO2 35 mmol/L (19-24); Allen Test Performed? Yes
[2021-02-05 11:40] LABS: Glucose,Whole Blood 124 mg/dL (75-99)
[2021-02-05] MEDS: hydrALAZINE HCL 25 MG TAB PO SCH ×2 (12:45→19:56)
[2021-02-05] MEDS: BARICITINIB 2 MG TABLET PO SCH (13:30)
[2021-02-05 17:31] LABS: Glucose,Whole Blood 154 mg/dL (75-99)
[2021-02-05] MEDS: NOREPINEPHRINE 4 MG in SODIUM CHLORIDE 0.9% 250 ML IV SCH (20:35)
--- NOTE | 2021-02-05 21:38 | P.PN ---
Subjective From records: 74-year-old patient who follows with Dr. Mauricio Keith. Tonic stable medical conditions include hypertension, Crohn's disease, nephrolithiasis, BPH, hypertension, tinnitus, COPD, CAD with bypass. EF of 20-25%. Presented with shortness of breath. Diagnosed with COVID 19 on January 18 symptoms starting 1 day before. He was found to be hypoxic at home. Upon arrival he was 85%. Patient declined treatment with Remdesivir. Patient had been taking ivermectin as outpatient. She requested this to be continued. This was declined by the admitting team as this was not approved treatment. Patient not vaccinated against COVID. She did with subcu Lovenox and dexamethasone. January 24: Patient feeling better. On 3 L nasal cannula. Oral intake fair. Up in a bed. Slight cough. January 25: Sitting up in a recliner. Tired. Has some chest tightness. 92% on 4 L. Oral intake good. January 26: Bit more short of breath. Oxygen requirement: Up to 15 L. Had low-grade fever. Eating about 50-75%. Tired. Up in a chair. January 27: Short of breath. Sitting at the edge of the bed. 15 L nasal cannula. Decreased appetite. January 28: Laying in bed. Tired. Short of breath. On 15 L nonrebreather. Oral intake fair. Started on Baricitinib by pulmonary January 29: Patient is become more short of breath. Placed on BiPAP. Decreased oral intake. Tired. On Baricitinib, dexamethasone. January 30: Sitting up in a chair. Using BiPAP. Short of breath. Decreased oral intake. On Baricitinib) dexamethasone. Acute PE on CT chest. Started on eliquis January 31: Sitting at the edge of the bed. BiPAP. Short of breath. Tired. On eliquis, on Baricitinib, dexamethasone. February 01: Laying in bed. Short of breath. BiPAP. Tired. On Baricitinib, dexamethasone, eliquis. Eating reasonably well. February 02: Rather tired short of breath BiPAP 100%. On dexamethasone, eliquis February 03: ICU: Intubated yesterday. Prone position. Ventilator FiO2 70 PEEP of 12. Drips included propofol and Nimbex. Subjective: 02/04/2021 This is a pleasant 75 years old male with multiple medical problems resented wi th respiratory distress secondary to bilateral Covid pneumonia with hypoxemia requiring intubation and mechanical ventilation, patient apparently was intubated yesterday while he was in the ICU. Patient is been followed closely in the ICU and his been treated with dexamethasone, vitamin C and D and zinc. Also he is on Lovenox and Pepcid. Patient also with hematuria while he is on blood thinner. [employer] team on the case. Also urologist was called. For hematuria and recommended outpatient cystoscopy and urethrogram 02/05/2021 Patient remains intubated and sedated to the ICU with pulmonary/critical care team helped with the vent management. Currently he requires FiO2 of 60%, slightly worse than yesterday Patient is admitted with Covid pneumonia and hypoxia associated also with mild acute kidney injury and gross hematuria has been seen and followed closely by nephrology and urology who recommended outpatient workup. Also patient with history of PE and was on Eliquis, daily Doppler was positive for bilateral DVT, currently he is comfortable with Lovenox 80 mg twice a day. Discharge x-ray showing persistent bilateral stable diffuse infiltrate This as a treatment for his Covid pneumonia including dexamethasone, vitamin C, vitamin D, zinc and barcitinib . Objective - Vital Signs Vital signs: Vital Signs Temp 100.0 F H 02/05/21 08:30 Pulse 87 02/05/21 11:00 Resp 30 H 02/05/21 11:00 BP 115/65 02/05/21 11:00 Pulse Ox 86 L 02/05/21 11:00 Intake & Output 02/04/21 02/05/21 02/05/21 18:59 06:59 18:59 Intake Total 193.122 8631.993 250 Output Total 585 800 360 Balance 402.383 352.993 -110 Weight 74 kg 78 kg Intake: IV 575 600 190 Sodium Chloride 0.9% 1, 575 600 190 000 ml @ 50 mls/hr IV . Q20H [facility] Rx#:[id number] Intake, IV Titration 412.383 292.993 Amount Cisatracurium 200 mg In 144.575 38.974 Sodium Chloride 0.9% 180 ml @ 2 MCG/KG/MIN 8.709 mls/hr IV .[id number] [facility] Rx #:[id number] propofoL 1,000 mg In 267.808 254.019 Empty Bag 1 bag @ Titrate IV .Q0M [facility] Rx#: [id number] Tube Feeding 170 60 Other 90 Output: Urine 585 800 360 Other: Voiding Method Indwelling Catheter Indwelling Catheter ABP, PAP, CO, CI - Last Documented Arterial Blood Pressure 114/84 - Exam -GENERAL: The patient is intubated and sedated HEENT: Pupils are round and equally reacting to light. EOMI. No scleral icterus. No conjunctival pallor. Normocephalic, atraumatic. No pharyngeal erythema. No thyromegaly. CARDIOVASCULAR: S1 and S2 present. No murmurs, rubs, or gallops. PULMONARY: Chest is clear to auscultation, no wheezing or crackles. ABDOMEN: Soft, nontender, nondistended, normoactive bowel sounds. No palpable organomegaly. MUSCULOSKELETAL: No joint swelling or deformity. EXTREMITIES: No cyanosis, clubbing, or pedal edema. NEUROLOGICAL: Gross neurological examination did not reveal any focal deficits. SKIN: No rashes. no petechiae. - Labs CBC & Chem 7: 02/05/21 04:05 02/05/21 04:05 Labs: Abnormal Lab Results - Last 24 Hours (Table) 02/04/21 02/04/21 02/04/21 Range/Units 10:51 10:51 10:51 WBC (3.8-10.6) k/uL RBC (4.30-5.90) m/uL Hgb (13.0-17.5) gm/dL Hct (39.0-53.0) % Neutrophils # (1.3-7.7) k/uL Lymphocytes # (1.0-4.8) k/uL PT 12.1 H (9.0-12.0) sec INR 1.2 H (<1.2) APTT 21.1 L (22.0-30.0) sec D-Dimer 25.03 H (<0.60) mg/L FEU ABG pCO2 (35-45) mmHg ABG pO2 (83-108) mmHg ABG HCO3 (21-25) mmol/L ABG Total CO2 (19-24) mmol/L ABG O2 Saturation (94-97) % Carbon Dioxide (22-30) mmol/L BUN (9-20) mg/dL Creatinine (0.66-1.25) mg/dL Glucose (74-99) mg/dL POC Glucose (mg/dL) (75-99) mg/dL Calcium (8.4-10.2) mg/dL Lactate Dehydrogenase 1055 H (313-618) U/L Procalcitonin 0.22 H (0.02-0.09) ng/mL 02/04/21 02/04/21 02/04/21 Range/Units 11:56 14:06 18:12 WBC 10.9 H (3.8-10.6) k/uL RBC 2.78 L (4.30-5.90) m/uL Hgb 7.9 L (13.0-17.5) gm/dL Hct 25.5 L (39.0-53.0) % Neutrophils # (1.3-7.7) k/uL Lymphocytes # (1.0-4.8) k/uL PT (9.0-12.0) sec INR (<1.2) APTT (22.0-30.0) sec D-Dimer (<0.60) mg/L FEU ABG pCO2 (35-45) mmHg ABG pO2 (83-108) mmHg ABG HCO3 (21-25) mmol/L ABG Total CO2 (19-24) mmol/L ABG O2 Saturation (94-97) % Carbon Dioxide (22-30) mmol/L BUN (9-20) mg/dL Creatinine (0.66-1.25) mg/dL Glucose (74-99) mg/dL POC Glucose (mg/dL) 110 H 122 H (75-99) mg/dL Calcium (8.4-10.2) mg/dL Lactate Dehydrogenase (313-618) U/L Procalcitonin (0.02-0.09) ng/mL 02/05/21 02/05/21 02/05/21 Range/Units 00:12 04:05 04:05 WBC (3.8-10.6) k/uL RBC (4.30-5.90) m/uL Hgb (13.0-17.5) gm/dL Hct (39.0-53.0) % Neutrophils # (1.3-7.7) k/uL Lymphocytes # (1.0-4.8) k/uL PT (9.0-12.0) sec INR (<1.2) APTT 20.0 L (22.0-30.0) sec D-Dimer 23.35 H (<0.60) mg/L FEU ABG pCO2 (35-45) mmHg ABG pO2 (83-108) mmHg ABG HCO3 (21-25) mmol/L ABG Total CO2 (19-24) mmol/L ABG O2 Saturation (94-97) % Carbon Dioxide 32 H (22-30) mmol/L BUN 55 H (9-20) mg/dL Creatinine 1.30 H (0.66-1.25) mg/dL Glucose 106 H (74-99) mg/dL POC Glucose (mg/dL) 117 H (75-99) mg/dL Calcium 8.0 L (8.4-10.2) mg/dL Lactate Dehydrogenase 977 H (313-618) U/L Procalcitonin (0.02-0.09) ng/mL 02/05/21 02/05/21 02/05/21 Range/Units 04:05 05:33 05:55 WBC 17.6 H (3.8-10.6) k/uL RBC 2.74 L (4.30-5.90) m/uL Hgb 7.8 L (13.0-17.5) gm/dL Hct 25.2 L (39.0-53.0) % Neutrophils # 17.1 H (1.3-7.7) k/uL Lymphocytes # 0.1 L (1.0-4.8) k/uL PT (9.0-12.0) sec INR (<1.2) APTT (22.0-30.0) sec D-Dimer (<0.60) mg/L FEU ABG pCO2 53 H (35-45) mmHg ABG pO2 54 L* (83-108) mmHg ABG HCO3 31 H (21-25) mmol/L ABG Total CO2 32 H (19-24) mmol/L ABG O2 Saturation 87.0 L (94-97) % Carbon Dioxide (22-30) mmol/L BUN (9-20) mg/dL Creatinine (0.66-1.25) mg/dL Glucose (74-99) mg/dL POC Glucose (mg/dL) 119 H (75-99) mg/dL Calcium (8.4-10.2) mg/dL Lactate Dehydrogenase (313-618) U/L Procalcitonin (0.02-0.09) ng/mL Microbiology - Last 24 Hours (Table) 02/02/21 19:00 Gram Stain - Final Sputum Sputum Culture - Final Assessment and Plan Assessment: Bilateral Covid pneumonia Acute hypoxic respiratory failure Increased inflammatory markers Hematuria Acute kidney injury History of PE on anticoagulation Plan: This is a pleasant 75 years old male who presents with Bilateral Covid pneumonia and hypoxia Continue with vitamin C, vitamin D, and zinc. Continue with dexamethasone Pulmonary team consult urology and nephrology Patient will benefit from outpatient cystoscopy Labs and medication were reviewed.. Continue same treatment. Continue with symptomatic treatment. Resume home medication. Monitor lytes and vitals. DVT and GI prophylaxis. Further recommendationsas per clinical course of the patient DVT prophylaxis: Subcutaneous Lovenox 80 mg twice a day GI Prophylaxis: Pepcid PT/OT: Pending Prognosis is guarded
[2021-02-06 00:09] LABS: Glucose,Whole Blood 145 mg/dL (75-99)
[2021-02-06] MEDS: INSULIN ASPART (NovoLOG) 100 UNIT/ML VIAL SQ SCH ×5 (00:15→23:37)
[2021-02-06 05:44] LABS: Glucose,Whole Blood 144 mg/dL (75-99)
[2021-02-06] MEDS: ARTIFICIAL TEARS-HYPROMELLOSE DROPS 15 ML BTL BOTH EYES SCH ×6 (06:02→23:37)
[2021-02-06] MEDS: CISATRACURIUM 200 MG in SODIUM CHLORIDE 0.9% 180 ML IV SCH (06:02)
[2021-02-06 06:24] LABS: ABG Base Excess 8.2 mmol/L; ABG HCO3 35 mmol/L (21-25); ABG Oxygen Saturation 96.5 % (94-97); ABG PO2 87 mmHg (83-108); ABG TCO2 37 mmol/L (19-24); Allen Test Performed? Yes
[2021-02-06 06:30] LABS: ABG PCO2 71 mmHg (35-45)
[2021-02-06 06:59] LABS: Basophils % (A) 0 %; Eosinophils % (A) 0 %; HCT 26.2 % (39.0-53.0); Hypochromasia Marked; Lymphocytes # (A) 0.1 k/uL (1.0-4.8); Lymphocytes % (A) 1 %; MCH 28.7 pg (25.0-35.0); MCHC 30.4 g/dL (31.0-37.0); MCV 94.4 fL (80.0-100.0); Mean Platelet Volume 7.9; Monocytes # (A) 0.3 k/uL (0-1.0); Monocytes % (A) 2 %; Neutrophils # (A) 10.9 k/uL (1.3-7.7); Neutrophils % (A) 96 %; Platelet Count 346 k/uL (150-450); RBC 2.77 m/uL (4.30-5.90); RDW 14.8 % (11.5-15.5); WBC 11.3 k/uL (3.8-10.6)
[2021-02-06 07:31] LABS: Calcium 8.3 mg/dL (8.4-10.2); Potassium 5.3 mmol/L (3.5-5.1)
--- NOTE | 2021-02-06 08:37 | P.PN ---
Subjective Progress Note Date: 02/06/21 02/06/2021, the patient remains intubated on a mechanical ventilator. The patient has been intubated since 02/02/2021 for COVID 19 related pneumonia. There was a concern for pulmonary embolism. I stopped anticoagulation based on the fact that I was not absolutely convinced that the patient a PE based on the CT angiogram. Subsequently, d-dimer was elevated and I obtained a repeat Doppler of the lower extremity that showed evidence of DVT bilaterally. The patient a positive DVT in the left popliteal and in the right lower extremity superficial venous system. Based on that, I restarted the patient on Lovenox at a therapeutic dose of 80 mg subcu twice a day. For now, the patient is on a m [place] ventilator. The patient is sedated with propofol running at 40 mcg/kg per minute. The patient is also on paralysis with Nimbex at 1.5 mcg/kg per minute. The patient's chest x-ray was repeated and the chest x-ray showing diffuse bilateral pulmonary infiltrates, unchanged compared to yesterday. Orotracheal tube is in a good location. The blood gases showed a pH of 7.3 with a pCO2 of 71 and pO2 of 87. The patient remains on Decadron. The patient remains on Baricitinib. D-dimer was 23. Progressive inflammatory markers were last checked yesterday and the LDH was 977 with a CRP of 0.2. As such, no major interval change in his oxygenation and chest x-ray findings. The patient r emains on a Decadron and Baricitinib protocol. The patient is also on Lovenox therapeutic doses. The patient is on no pressors for now and norepinephrine has been discontinued. His cardiac rhythm is sinus. His blood work shows a stable hemoglobin of 8.0. His hematuria has subsided. No evidence of any bleeding. White cell count is at 11.3. He is afebrile. Creatinine is stable at 1.3 and the rest of the blood work and electrolytes are normal with some trend of hyperkalemia and a potassium level of 5.3. He is receiving enteral feeding for nutritional support. He is currently on vitamin AF at the rate of 42 mL an hour. Overall fluid balance over over the past 24 hours has been positive and the patient's weight has been gradually increasing and he has gained approximately 4 kg. Objective - Vital Signs Vital signs: Vital Signs Temp 98.4 F 02/05/21 20:00 Pulse 75 02/05/21 21:00 Resp 30 H 02/05/21 21:00 BP 109/55 02/05/21 21:00 Pulse Ox 95 02/05/21 21:00 Intake & Output 02/05/21 02/06/21 02/06/21 18:59 06:59 18:59 Intake Total 111.557 1014.88 62 Output Total 605 740 55 Balance 277.484 269.88 7 Weight 76.5 kg Intake: IV 330 240 20 Sodium Chloride 0.9% 1, 330 240 20 000 ml @ 50 mls/hr IV . Q20H [facility] Rx#:[id number] Intake, IV Titration 300.484 175.88 Amount Cisatracurium 200 mg In 100.484 75.88 Sodium Chloride 0.9% 180 ml @ 2 MCG/KG/MIN 8.709 mls/hr IV .[id number] [facility] Rx #:[id number] propofoL 1,000 mg In 200 100 Empty Bag 1 bag @ Titrate IV .Q0M [facility] Rx#: [id number] Tube Feeding 222 504 42 Other 30 90 Output: Urine 605 740 55 Other: Voiding Method Indwelling Catheter Indwelling Catheter ABP, PAP, CO, CI - Last Documented Arterial Blood Pressure 114/84 - Exam GENERAL EXAM: Intubated, sedated and paralyzed 75-year-old white male, on assist control mode of ventilation HEAD: Normocephalic/atraumatic. EYES: Normal reaction of pupils, equal size. Conjunctiva pink, sclera white. NOSE: Clear with pink turbinates. THROAT: No erythema or exudates. NECK: No masses, no JVD, no thyroid enlargement, no adenopathy. CHEST: No chest wall deformity. Symmetrical expansion. LUNGS: Equal air entry with diffuse bilateral crackles CVS: Regular rate and rhythm, normal S1 and S2, no gallops, no murmurs, no rubs ABDOMEN: Soft, nontender. No hepatosplenomegaly, normal bowel sounds, no guarding or rigidity. EXTREMITIES: No clubbing, no edema, no cyanosis, 2+ pulses and upper and lower extremities. MUSCULOSKELETAL: Muscle strength and tone normal. SPINE: No scoliosis or deformity SKIN: No rashes CENTRAL NERVOUS SYSTEM: Intubated, No focal deficits, tone is normal in all 4 extremities. PSYCHIATRIC: Sedated, paralyzed - Labs CBC & Chem 7: 02/06/21 05:24 02/06/21 05:24 Labs: Abnormal Lab Results - Last 24 Hours (Table) 02/05/21 02/05/21 02/05/21 Range/Units 04:05 11:29 11:38 WBC (3.8-10.6) k/uL RBC (4.30-5.90) m/uL Hgb (13.0-17.5) gm/dL Hct (39.0-53.0) % MCHC (31.0-37.0) g/dL Neutrophils # (1.3-7.7) k/uL Lymphocytes # (1.0-4.8) k/uL ABG pH 7.28 L (7.35-7.45) ABG pCO2 70 H (35-45) mmHg ABG pO2 66 L (83-108) mmHg ABG HCO3 33 H (21-25) mmol/L ABG Total CO2 35 H (19-24) mmol/L ABG O2 Saturation 90.1 L (94-97) % Potassium (3.5-5.1) mmol/L Carbon Dioxide (22-30) mmol/L BUN (9-20) mg/dL Creatinine (0.66-1.25) mg/dL Glucose (74-99) mg/dL POC Glucose (mg/dL) 124 H (75-99) mg/dL Calcium (8.4-10.2) mg/dL Procalcitonin 0.20 H (0.02-0.09) ng/mL 02/05/21 02/06/21 02/06/21 Range/Units 17:30 00:08 05:24 WBC 11.3 H (3.8-10.6) k/uL RBC 2.77 L (4.30-5.90) m/uL Hgb 8.0 L (13.0-17.5) gm/dL Hct 26.2 L (39.0-53.0) % MCHC 30.4 L (31.0-37.0) g/dL Neutrophils # 10.9 H (1.3-7.7) k/uL Lymphocytes # 0.1 L (1.0-4.8) k/uL ABG pH (7.35-7.45) ABG pCO2 (35-45) mmHg ABG pO2 (83-108) mmHg ABG HCO3 (21-25) mmol/L ABG Total CO2 (19-24) mmol/L ABG O2 Saturation (94-97) % Potassium (3.5-5.1) mmol/L Carbon Dioxide (22-30) mmol/L BUN (9-20) mg/dL Creatinine (0.66-1.25) mg/dL Glucose (74-99) mg/dL POC Glucose (mg/dL) 154 H 145 H (75-99) mg/dL Calcium (8.4-10.2) mg/dL Procalcitonin (0.02-0.09) ng/mL 02/06/21 02/06/21 02/06/21 Range/Units 05:24 05:43 06:15 WBC (3.8-10.6) k/uL RBC (4.30-5.90) m/uL Hgb (13.0-17.5) gm/dL Hct (39.0-53.0) % MCHC (31.0-37.0) g/dL Neutrophils # (1.3-7.7) k/uL Lymphocytes # (1.0-4.8) k/uL ABG pH 7.30 L (7.35-7.45) ABG pCO2 71 H* (35-45) mmHg ABG pO2 (83-108) mmHg ABG HCO3 35 H (21-25) mmol/L ABG Total CO2 37 H (19-24) mmol/L ABG O2 Saturation (94-97) % Potassium 5.3 H (3.5-5.1) mmol/L Carbon Dioxide 34 H (22-30) mmol/L BUN 51 H (9-20) mg/dL Creatinine 1.33 H (0.66-1.25) mg/dL Glucose 125 H (74-99) mg/dL POC Glucose (mg/dL) 144 H (75-99) mg/dL Calcium 8.3 L (8.4-10.2) mg/dL Procalcitonin (0.02-0.09) ng/mL Assessment and Plan Plan: #1. Acute hypoxic respiratory failure secondary to COVID-19 pneumonia. Patient is not nonvaccinated adult, his symptoms started on 01/17/2021. Patient took ivermectin on an outpatient basis prescribed by his [place] doctor. Patient refused Remdesivir. Is currently on Decadron, prophylactic anticoagulation, and COVID-19 vitamins. Patient was started on Baricitinib today on 01/27/2021 in view of progressive hypoxia and patient was on BiPAP . On 02/02/2021 patient was emergently transferred to the intensive care unit where he was intubated. Currently on assist control mode of ventilation . The patient remains intubated on mechanical ventilator. The patient remains sedated and paralyzed. Blood gases was noted. Oxygenation is borderline and limited and there is or is not a whole room for weaning at this point in time. Chest exam findings are stable. Hemodynamically stable. On today's evaluation, the chest x-ray findings are st able and unchanged. Blood gases was noted and the findings are essentially stable. Hemodynamically stable. The patient is still on a combination of Baricitinib and Decadron. The patient is on anti-coagulation with Lovenox therapeutic doses regarding bilateral lower extremity DVT. The patient will be started on diuresis. #2. Questionable right lower lobe partially occlusive PE with subsegmental extension diagnosed by CT angiogram of the chest on 01/30/2021. Subsequent evaluation showed left popliteal DVT and a right superficial vein thrombosis and for that reason the patient has been transitioned into therapeutic dose of Lovenox. No evidence of any bleeding for now. #3. Acute kidney injury, possibly related to COVID-19 related ATN, Creatinine stable at 1.3 #4. Hematuria, see discussion above, improved #5. Elevated inflammatory markers related to the above, slightly improved and worsened again today on 01/31/2021. #6. Elevated transaminases, improving #7. History of COPD with diffuse centrilobar emphysema #8. Former smoker #9. Coronary artery disease with previous coronary artery bypass grafting 4 in 2018 #10. Mitral valve repair #11. Crohn's disease #12. Hypertension #13. History of systolic CHF #14. Elevated d-dimer, and without CT evidence of pulmonary embolism, or DVT on bilateral lower extremity Dopplers #15. Acute kidney injury possibly related to COVID-19 ATN, stable #16 acute drop in hemoglobin, anemia, consolidated to bleed as mentioned above. Hemoglobin currently is at 8.0 Plan: Continue ventilator support, oxygenation is borderline. Drop PEEP up to 14, tidal volume down to 420 , FiO2 at 50%. Start the patient on Lovenox 80 mg subcu BID for DVT Repeat inflammatory markers including d-dimer and a pro-calcitonin level The patient is currently off pressors. Continue Decadron 6 mg daily, Baricitinib, COVID-19 vitamins Nephrology continues to follow for acute kidney injury, creatinine stable nutritional support with tube feedings Lasix 40 mg q 12 hr Follow-up inflammatory markers, follow-up labs tomorrow Paralytic holiday , keep sadation Prognosis is extremely guarded We'll continue to follow Family is opted to change his CODE STATUS to DO NOT RESUSCITATE Condition is critical we'll continue to follow make further recommendation based on her progress. Critically care evaluation that was on a more than 30 minutes. Time with Patient: Greater than 30 Time with Patient: Greater than 30
--- NOTE | 2021-02-06 08:42 | P.PN ---
Subjective Patient is seen in follow-up for acute kidney injury. Renal function stable as of yesterday. Intubated. Good urine output. Off Levophed. Nonoliguric. Receiving tube feeds. Vital signs are stable. Off Levophed. HEENT: Intubated. Regular rate and rhythm noted on monitor. No gross edema noted. Objective - Vital Signs Vital signs: Vital Signs Temp 98.4 F 02/05/21 20:00 Pulse 75 02/05/21 21:00 Resp 30 H 02/05/21 21:00 BP 109/55 02/05/21 21:00 Pulse Ox 95 02/05/21 21:00 Intake & Output 02/05/21 02/06/21 02/06/21 18:59 06:59 18:59 Intake Total 351.819 5935.88 62 Output Total 605 740 55 Balance 277.484 269.88 7 Weight 76.5 kg Intake: IV 330 240 20 Sodium Chloride 0.9% 1, 330 240 20 000 ml @ 50 mls/hr IV . Q20H [facility] Rx#:[id number] Intake, IV Titration 300.484 175.88 Amount Cisatracurium 200 mg In 100.484 75.88 Sodium Chloride 0.9% 180 ml @ 2 MCG/KG/MIN 8.709 mls/hr IV .[id number] [facility] Rx #:[id number] propofoL 1,000 mg In 200 100 Empty Bag 1 bag @ Titrate IV .Q0M [facility] Rx#: [id number] Tube Feeding 222 504 42 Other 30 90 Output: Urine 605 740 55 Other: Voiding Method Indwelling Catheter Indwelling Catheter ABP, PAP, CO, CI - Last Documented Arterial Blood Pressure 114/84 - Labs CBC & Chem 7: 02/06/21 05:24 02/06/21 05:24 Labs: Abnormal Lab Results - Last 24 Hours (Table) 02/05/21 02/05/21 02/05/21 Range/Units 04:05 11:29 11:38 WBC (3.8-10.6) k/uL RBC (4.30-5.90) m/uL Hgb (13.0-17.5) gm/dL Hct (39.0-53.0) % MCHC (31.0-37.0) g/dL Neutrophils # (1.3-7.7) k/uL Lymphocytes # (1.0-4.8) k/uL ABG pH 7.28 L (7.35-7.45) ABG pCO2 70 H (35-45) mmHg ABG pO2 66 L (83-108) mmHg ABG HCO3 33 H (21-25) mmol/L ABG Total CO2 35 H (19-24) mmol/L ABG O2 Saturation 90.1 L (94-97) % Potassium (3.5-5.1) mmol/L Carbon Dioxide (22-30) mmol/L BUN (9-20) mg/dL Creatinine (0.66-1.25) mg/dL Glucose (74-99) mg/dL POC Glucose (mg/dL) 124 H (75-99) mg/dL Calcium (8.4-10.2) mg/dL Procalcitonin 0.20 H (0.02-0.09) ng/mL 02/05/21 02/06/21 02/06/21 Range/Units 17:30 00:08 05:24 WBC 11.3 H (3.8-10.6) k/uL RBC 2.77 L (4.30-5.90) m/uL Hgb 8.0 L (13.0-17.5) gm/dL Hct 26.2 L (39.0-53.0) % MCHC 30.4 L (31.0-37.0) g/dL Neutrophils # 10.9 H (1.3-7.7) k/uL Lymphocytes # 0.1 L (1.0-4.8) k/uL ABG pH (7.35-7.45) ABG pCO2 (35-45) mmHg ABG pO2 (83-108) mmHg ABG HCO3 (21-25) mmol/L ABG Total CO2 (19-24) mmol/L ABG O2 Saturation (94-97) % Potassium (3.5-5.1) mmol/L Carbon Dioxide (22-30) mmol/L BUN (9-20) mg/dL Creatinine (0.66-1.25) mg/dL Glucose (74-99) mg/dL POC Glucose (mg/dL) 154 H 145 H (75-99) mg/dL Calcium (8.4-10.2) mg/dL Procalcitonin (0.02-0.09) ng/mL 02/06/21 02/06/21 02/06/21 Range/Units 05:24 05:43 06:15 WBC (3.8-10.6) k/uL RBC (4.30-5.90) m/uL Hgb (13.0-17.5) gm/dL Hct (39.0-53.0) % MCHC (31.0-37.0) g/dL Neutrophils # (1.3-7.7) k/uL Lymphocytes # (1.0-4.8) k/uL ABG pH 7.30 L (7.35-7.45) ABG pCO2 71 H* (35-45) mmHg ABG pO2 (83-108) mmHg ABG HCO3 35 H (21-25) mmol/L ABG Total CO2 37 H (19-24) mmol/L ABG O2 Saturation (94-97) % Potassium 5.3 H (3.5-5.1) mmol/L Carbon Dioxide 34 H (22-30) mmol/L BUN 51 H (9-20) mg/dL Creatinine 1.33 H (0.66-1.25) mg/dL Glucose 125 H (74-99) mg/dL POC Glucose (mg/dL) 144 H (75-99) mg/dL Calcium 8.3 L (8.4-10.2) mg/dL Procalcitonin (0.02-0.09) ng/mL Assessment and Plan Plan: Assessment: 1. Acute kidney injury secondary to ATN secondary to infection and hypotension. Creatinine 1.3 yesterday. Patient received IV contrast dye on January 26 and 01/30/2021 for CTA. Nonoliguric. 2. COVID-19 pneumonia. 3. Coronary disease status post CABG. 4. PE. Anticoagulation was held due to hematuria. Now on Lovenox. 5. Benign hypertension. Stable. Off vasopressors. 6. Acute hypoxic respiratory failure. Plan: Maintain tube feeds. Encouraged oral intake. Wean FiO2. Lasix started today per ICU team due to hypoxia. Continue to monitor renal function and urine output.
[2021-02-06] MEDS: FUROSEMIDE 10 MG/ML 4 ML VIAL IV SCH ×2 (09:13→19:47)
[2021-02-06] MEDS: BALSALAZIDE DISODIUM 750 MG CAPSULE PO SCH ×3 (09:13→19:47)
[2021-02-06] MEDS: ASCORBIC ACID 500 MG TAB PO SCH (09:13)
[2021-02-06] MEDS: CYANOCOBALAMIN 500 MCG TAB PO SCH (09:14)
[2021-02-06] MEDS: dexAMETHasone 2 MG TAB PO SCH (09:14)
[2021-02-06] MEDS: TAMSULOSIN 0.4 MG CAP.ER.24H PO SCH ×2 (09:15→19:44)
[2021-02-06] MEDS: ZINC SULFATE 220 MG CAP PO SCH (09:15)
[2021-02-06] MEDS: ENOXAPARIN 80 MG/0.8 ML SYRINGE SQ SCH ×2 (09:15→19:47)
[2021-02-06] MEDS: CHOLECALCIFEROL 125 MCG (5000 IU) TABLET PO SCH (09:15)
[2021-02-06] MEDS: CHLORHEXIDINE GLUCONATE 15 ML CUP MUCOUS MEM SCH ×2 (09:16→19:47)
--- NOTE | 2021-02-06 09:24 | XR ---
EXAMINATION TYPE: XR chest 1V portable DATE OF EXAM: 02/06/2021 COMPARISON: Chest x-ray 02/05/2021 HISTORY: Intubated TECHNIQUE: Single frontal view of the chest is obtained. FINDINGS: Endotracheal tube and NG tube, left subclavian central venous catheter are overlying appro priate positions, stable. Diffuse interstitial and airspace disease is present within the lung. There are overlying artifacts present. Patient is post median sternotomy, the aorta is dense, cardiac medi astinal silhouette is stable. IMPRESSION: Findings similar to prior exam, correlate for pneumonia, congestive heart failure and ed josh, ARDS
[2021-02-06 11:49] LABS: ABG Base Excess 9.5 mmol/L; ABG HCO3 36 mmol/L (21-25); ABG Oxygen Saturation 84.7 % (94-97); ABG PH 7.28 (7.35-7.45); ABG TCO2 39 mmol/L (19-24); Allen Test Performed? Yes
[2021-02-06 11:51] LABS: ABG PCO2 78 mmHg (35-45); ABG PO2 55 mmHg (83-108)
[2021-02-06 11:53] LABS: ALT 17 U/L (4-49); AST 25 U/L (17-59)
[2021-02-06 11:55] LABS: Glucose,Whole Blood 165 mg/dL (75-99)
[2021-02-06] MEDS: ALBUTEROL HFA INHALER INHALATION SCH ×4 (11:57→20:09)
[2021-02-06] MEDS: SODIUM CHLORIDE 0.9% 1,000 ML IV SCH (12:02)
[2021-02-06] MEDS: BARICITINIB 2 MG TABLET PO SCH (14:36)
[2021-02-06] MEDS: NOREPINEPHRINE 4 MG in SODIUM CHLORIDE 0.9% 250 ML IV SCH (15:18)
[2021-02-06 18:24] LABS: Glucose,Whole Blood 188 mg/dL (75-99)
[2021-02-06] MEDS ORDERED: APIXABAN 5 MG TAB PO SCH (21:00)
--- NOTE | 2021-02-06 21:34 | P.PN ---
Subjective From records: 74-year-old patient who follows with Dr. Mauricio Keith. Tonic stable medical conditions include hypertension, Crohn's disease, nephrolithiasis, BPH, hypertension, tinnitus, COPD, CAD with bypass. EF of 20-25%. Presented with shortness of breath. Diagnosed with COVID 19 on January 18 symptoms starting 1 day before. He was found to be hypoxic at home. Upon arrival he was 85%. Patient declined treatment with Remdesivir. Patient had been taking ivermectin as outpatient. She requested this to be continued. This was declined by the admitting team as this was not approved treatment. Patient not vaccinated against COVID. She did with subcu Lovenox and dexamethasone. January 24: Patient feeling better. On 3 L nasal cannula. Oral intake fair. Up in a bed. Slight cough. January 25: Sitting up in a recliner. Tired. Has some chest tightness. 92% on 4 L. Oral intake good. January 26: Bit more short of breath. Oxygen requirement: Up to 15 L. Had low-grade fever. Eating about 50-75%. Tired. Up in a chair. January 27: Short of breath. Sitting at the edge of the bed. 15 L nasal cannula. Decreased appetite. January 28: Laying in bed. Tired. Short of breath. On 15 L nonrebreather. Oral intake fair. Started on Baricitinib by pulmonary January 29: Patient is become more short of breath. Placed on BiPAP. Decreased oral intake. Tired. On Baricitinib, dexamethasone. January 30: Sitting up in a chair. Using BiPAP. Short of breath. Decreased oral intake. On Baricitinib) dexamethasone. Acute PE on CT chest. Started on eliquis January 31: Sitting at the edge of the bed. BiPAP. Short of breath. Tired. On eliquis, on Baricitinib, dexamethasone. February 01: Laying in bed. Short of breath. BiPAP. Tired. On Baricitinib, dexamethasone, eliquis. Eating reasonably well. February 02: Rather tired short of breath BiPAP 100%. On dexamethasone, eliquis February 03: ICU: Intubated yesterday. Prone position. Ventilator FiO2 70 PEEP of 12. Drips included propofol and Nimbex. Subjective: 02/04/2021 This is a pleasant 75 years old male with multiple medical problems resented wi th respiratory distress secondary to bilateral Covid pneumonia with hypoxemia requiring intubation and mechanical ventilation, patient apparently was intubated yesterday while he was in the ICU. Patient is been followed closely in the ICU and his been treated with dexamethasone, vitamin C and D and zinc. Also he is on Lovenox and Pepcid. Patient also with hematuria while he is on blood thinner. [employer] team on the case. Also urologist was called. For hematuria and recommended outpatient cystoscopy and urethrogram 02/05/2021 Patient remains intubated and sedated to the ICU with pulmonary/critical care team helped with the vent management. Currently he requires FiO2 of 60%, slightly worse than yesterday Patient is admitted with Covid pneumonia and hypoxia associated also with mild acute kidney injury and gross hematuria has been seen and followed closely by nephrology and urology who recommended outpatient workup. Also patient with history of PE and was on Eliquis, daily Doppler was positive for bilateral DVT, currently he is comfortable with Lovenox 80 mg twice a day. Discharge x-ray showing persistent bilateral stable diffuse infiltrate This as a treatment for his Covid pneumonia including dexamethasone, vitamin C, vitamin D, zinc and barcitinib . 02/06/2021 Patient remains in critical condition in the ICU, she still intubated and sedated. No much progress she still on FiO2 of 50% which is slightly improved. He is been afebrile today compared to yesterday he had a fever of 100. Leukocytosis down to 11.3 today. Creatinine is stable at 1.3. Chest x-ray is the same with pneumonia versus ARDS versus CHF IV Lasix 40 mg twice a day was added today Patient continued to the treatment for Covid with picks up with his own, vitamin C, vitamin D, zinc and barcitinib .. Also he is on Lovenox 80 mg twice a day for his history of PE. Neurologist saw the patient on admission to the ICU for hematuria and recommended outpatient follow-up. Progresses remains guarded and family opted for DO NOT RESUSCITATE today was noted Objective - Vital Signs Vital signs: Vital Signs Temp 98.4 F 02/05/21 20:00 Pulse 75 02/05/21 21:00 Resp 30 H 02/05/21 21:00 BP 109/55 02/05/21 21:00 Pulse Ox 95 02/05/21 21:00 Intake & Output 02/05/21 02/06/21 02/06/21 18:59 06:59 18:59 Intake Total 800.711 3927.88 236.536 Output Total 605 740 55 Balance 277.484 269.88 181.536 Weight 76.5 kg Intake: IV 330 240 100 Sodium Chloride 0.9% 1, 330 240 100 000 ml @ 50 mls/hr IV . Q20H CHERYL Rx#:[id number] Intake, IV Titration 300.484 175.88 94.536 Amount Cisatracurium 200 mg In 100.484 75.88 Sodium Chloride 0.9% 180 ml @ 2 MCG/KG/MIN 8.709 mls/hr IV .[id number] CHERYL Rx #:[id number] propofoL 1,000 mg In 200 100 94.536 Empty Bag 1 bag @ Titrate IV .Q0M CHERYL Rx#: [id number] Tube Feeding 222 504 42 Other 30 90 Output: Urine 605 740 55 Other: Voiding Method Indwelling Catheter Indwelling Catheter ABP, PAP, CO, CI - Last Documented Arterial Blood Pressure 114/84 - Exam -GENERAL: The patient is intubated and sedated HEENT: Pupils are round and equally reacting to light. EOMI. No scleral icterus. No conjunctival pallor. Normocephalic, atraumatic. No pharyngeal erythema. No thyromegaly. CARDIOVASCULAR: S1 and S2 present. No murmurs, rubs, or gallops. PULMONARY: Chest is clear to auscultation, no wheezing or crackles. ABDOMEN: Soft, nontender, nondistended, normoactive bowel sounds. No palpable organomegaly. MUSCULOSKELETAL: No joint swelling or deformity. EXTREMITIES: No cyanosis, clubbing, or pedal edema. NEUROLOGICAL: Gross neurological examination did not reveal any focal deficits. SKIN: No rashes. no petechiae. - Labs CBC & Chem 7: 02/06/21 05:24 02/06/21 05:24 Labs: Abnormal Lab Results - Last 24 Hours (Table) 02/05/21 02/05/21 02/05/21 Range/Units 04:05 11:29 11:38 WBC (3.8-10.6) k/uL RBC (4.30-5.90) m/uL Hgb (13.0-17.5) gm/dL Hct (39.0-53.0) % MCHC (31.0-37.0) g/dL Neutrophils # (1.3-7.7) k/uL Lymphocytes # (1.0-4.8) k/uL ABG pH 7.28 L (7.35-7.45) ABG pCO2 70 H (35-45) mmHg ABG pO2 66 L (83-108) mmHg ABG HCO3 33 H (21-25) mmol/L ABG Total CO2 35 H (19-24) mmol/L ABG O2 Saturation 90.1 L (94-97) % Potassium (3.5-5.1) mmol/L Carbon Dioxide (22-30) mmol/L BUN (9-20) mg/dL Creatinine (0.66-1.25) mg/dL Glucose (74-99) mg/dL POC Glucose (mg/dL) 124 H (75-99) mg/dL Calcium (8.4-10.2) mg/dL Procalcitonin 0.20 H (0.02-0.09) ng/mL 02/05/21 02/06/21 02/06/21 Range/Units 17:30 00:08 05:24 WBC 11.3 H (3.8-10.6) k/uL RBC 2.77 L (4.30-5.90) m/uL Hgb 8.0 L (13.0-17.5) gm/dL Hct 26.2 L (39.0-53.0) % MCHC 30.4 L (31.0-37.0) g/dL Neutrophils # 10.9 H (1.3-7.7) k/uL Lymphocytes # 0.1 L (1.0-4.8) k/uL ABG pH (7.35-7.45) ABG pCO2 (35-45) mmHg ABG pO2 (83-108) mmHg ABG HCO3 (21-25) mmol/L ABG Total CO2 (19-24) mmol/L ABG O2 Saturation (94-97) % Potassium (3.5-5.1) mmol/L Carbon Dioxide (22-30) mmol/L BUN (9-20) mg/dL Creatinine (0.66-1.25) mg/dL Glucose (74-99) mg/dL POC Glucose (mg/dL) 154 H 145 H (75-99) mg/dL Calcium (8.4-10.2) mg/dL Procalcitonin (0.02-0.09) ng/mL 02/06/21 02/06/21 02/06/21 Range/Units 05:24 05:43 06:15 WBC (3.8-10.6) k/uL RBC (4.30-5.90) m/uL Hgb (13.0-17.5) gm/dL Hct (39.0-53.0) % MCHC (31.0-37.0) g/dL Neutrophils # (1.3-7.7) k/uL Lymphocytes # (1.0-4.8) k/uL ABG pH 7.30 L (7.35-7.45) ABG pCO2 71 H* (35-45) mmHg ABG pO2 (83-108) mmHg ABG HCO3 35 H (21-25) mmol/L ABG Total CO2 37 H (19-24) mmol/L ABG O2 Saturation (94-97) % Potassium 5.3 H (3.5-5.1) mmol/L Carbon Dioxide 34 H (22-30) mmol/L BUN 51 H (9-20) mg/dL Creatinine 1.33 H (0.66-1.25) mg/dL Glucose 125 H (74-99) mg/dL POC Glucose (mg/dL) 144 H (75-99) mg/dL Calcium 8.3 L (8.4-10.2) mg/dL Procalcitonin (0.02-0.09) ng/mL Assessment and Plan Assessment: Bilateral Covid pneumonia Acute hypoxic respiratory failure Increased inflammatory markers Hematuria Acute kidney injury History of PE on anticoagulation Plan: This is a pleasant 75 years old male who presents with Bilateral Covid pneumonia and hypoxia Continue with vitamin C, vitamin D, and zinc. Continue with dexamethasone Pulmonary team consult urology and nephrology Patient will benefit from outpatient cystoscopy Labs and medication were reviewed.. Continue same treatment. Continue with symptomatic treatment. Resume home medication. Monitor lytes and vitals. DVT and GI prophylaxis. Further recommendationsas per clinical course of the patient DVT prophylaxis: Subcutaneous Lovenox 80 mg twice a day GI Prophylaxis: Pepcid PT/OT: Pending Prognosis is guarded
[2021-02-06 23:34] LABS: Glucose,Whole Blood 142 mg/dL (75-99)
[2021-02-07 04:35] LABS: Basophils % (A) 0 %; Eosinophils % (A) 0 %; HGB 8.1 gm/dL (13.0-17.5); Hypochromasia Marked; Lymphocytes # (A) 0.2 k/uL (1.0-4.8); Lymphocytes % (A) 1 %; MCH 28.4 pg (25.0-35.0); MCHC 30.2 g/dL (31.0-37.0); MCV 93.9 fL (80.0-100.0); Mean Platelet Volume 7.8; Monocytes # (A) 0.3 k/uL (0-1.0); Monocytes % (A) 2 %; Neutrophils # (A) 11.9 k/uL (1.3-7.7); Neutrophils % (A) 96 %; Platelet Count 371 k/uL (150-450); RBC 2.87 m/uL (4.30-5.90); RDW 15.2 % (11.5-15.5); WBC 12.4 k/uL (3.8-10.6)
[2021-02-07 05:04] LABS: Albumin 2.4 g/dL (3.5-5.0); Calcium 8.5 mg/dL (8.4-10.2); Total Bilirubin 0.4 mg/dL (0.2-1.3); Total Protein 5.1 g/dL (6.3-8.2)
[2021-02-07 05:18] LABS: Glucose,Whole Blood 130 mg/dL (75-99)
[2021-02-07 05:45] LABS: ABG Base Excess 17.9 mmol/L; ABG Oxygen Saturation 91.5 % (94-97); ABG PH 7.39 (7.35-7.45); ABG PO2 60 mmHg (83-108); ABG TCO2 45 mmol/L (19-24); Allen Test Performed? Yes
[2021-02-07] MEDS: INSULIN ASPART (NovoLOG) 100 UNIT/ML VIAL SQ SCH ×4 (05:47→23:47)
[2021-02-07 05:48] LABS: ABG HCO3 43 mmol/L (21-25); ABG PCO2 71 mmHg (35-45)
[2021-02-07] MEDS: ARTIFICIAL TEARS-HYPROMELLOSE DROPS 15 ML BTL BOTH EYES SCH ×6 (06:13→23:08)
[2021-02-07] MEDS: ALBUTEROL HFA INHALER INHALATION SCH ×4 (08:33→19:44)
--- NOTE | 2021-02-07 08:36 | XR ---
EXAMINATION TYPE: XR chest 1V portable DATE OF EXAM: 02/07/2021 COMPARISON: 02/07/2020 HISTORY: Shortness of breath TECHNIQUE: Single frontal view of the chest is obtained. FINDINGS: Diffuse interstitial infiltrates with cardiomegaly and postsurgical change. ET and NG tube noted with left-sided central line. No sizable pneumothorax. Biapical pleural thickening. Osseous structures are intact. IMPRESSION: Stable diffuse bilateral infiltrates
[2021-02-07] MEDS: CISATRACURIUM 200 MG in SODIUM CHLORIDE 0.9% 180 ML IV SCH (08:53)
[2021-02-07] MEDS: ENOXAPARIN 80 MG/0.8 ML SYRINGE SQ SCH ×2 (09:40→21:03)
[2021-02-07] MEDS: ASCORBIC ACID 500 MG TAB PO SCH (09:41)
[2021-02-07] MEDS: TAMSULOSIN 0.4 MG CAP.ER.24H PO SCH ×2 (09:41→21:08)
[2021-02-07] MEDS: CHLORHEXIDINE GLUCONATE 15 ML CUP MUCOUS MEM SCH ×2 (09:41→21:07)
[2021-02-07] MEDS: CYANOCOBALAMIN 500 MCG TAB PO SCH (09:41)
[2021-02-07] MEDS: ZINC SULFATE 220 MG CAP PO SCH (09:41)
[2021-02-07] MEDS: BALSALAZIDE DISODIUM 750 MG CAPSULE PO SCH ×3 (09:41→21:08)
[2021-02-07] MEDS: dexAMETHasone 2 MG TAB PO SCH (09:41)
[2021-02-07] MEDS: CHOLECALCIFEROL 125 MCG (5000 IU) TABLET PO SCH (09:42)
[2021-02-07] MEDS: FUROSEMIDE 10 MG/ML 4 ML VIAL IV SCH ×2 (09:43→21:08)
[2021-02-07] MEDS ORDERED: DEXTROSE 5% IN WATER 100 ML with AMIODARONE 150 MG IV ONE (11:34)
[2021-02-07] MEDS ORDERED: AMIODARONE 360 MG in DEXTROSE 5% IN WATER 200 ML IV ONE ×2 (11:34)
[2021-02-07] MEDS: fentaNYL (PF). 1,000 MCG in SODIUM CHLORIDE 0.9% 80 ML IV SCH ×2 (11:49→21:07)
[2021-02-07] MEDS ORDERED: AMIODARONE IN DEXTROSE,ISO-OSM 360 MG/200 ML PLAST..BAG IV ONE (12:00)
[2021-02-07] MEDS ORDERED: AMIODARONE IN DEXTROSE,ISO-OSM 150 MG/100 ML PLAST..BAG IV ONE (12:00)
[2021-02-07 12:07] LABS: Glucose,Whole Blood 154 mg/dL (75-99)
[2021-02-07] MEDS ORDERED: BARICITINIB 2 MG TABLET PO SCH (14:00)
--- NOTE | 2021-02-07 14:08 | P.PN ---
Subjective Progress Note Date: 02/07/21 Principal diagnosis: Acute hypoxic respiratory failure secondary to COVID-19 pneumonia This is a 75-year-old male patient who follows with Dr. Mauricio Keith is his primary care provider. He has a history of coronary artery disease with previous coronary artery bypass grafting, mitral valve replacement, hypertension, hyperlipidemia, chronic obstructive pulmonary disease, former smoker, Crohn's disease. On January 17 the patient started having symptoms of fever cough congestion weakness and was tested for COVID-19 on January 18. He found out his results on January 21 and was told to stay home and rest unless his symptoms worsened. He was given doxycycline and prednisone 20 mg twice a day. His brought him into the emergency room here today as his oxygen levels were dropping at home. Chest x-rays revealing patchy bilateral interstitial pneumonia with underlying COPD. White count 2.8. Hemoglobin 12.9. Platelets 149. Lymphocytes 0.2. D-dimer 0.83. Sodium 133. Potassium 4.7. Creatinine 1.06. Glucose 154. AST 122. ALT 75. LDH 1082. C-reactive protein 6.4. Chronic virus by PCR positive. The patient is not vaccinated. He is seen today in the emergency room. Awake and alert in no acute distress. Sitting up on a stretcher. He is 85% O2 saturation on room air. 93% on 2 L per nasal cannula. Afebrile. Hemodynamically stable. He's been initiated on Lovenox and vitamin supplements. He will be started on Decadron. We discussed with him the possibility for Remdesivir which he is reluctant to receive. His who is sitting next to him is also having symptoms and she plans to go get tested today. The patient is seen today 01/24/2021 in follow-up on the observation unit. He is currently sitting up in bed. Awake and alert in no acute distress. He is feeling quite a bit better. Feeling stronger today. He did decline Remdesivir. He has been maintained on Lovenox, Decadron, vitamin supplements. He is currently maintaining O2 saturation in the low 90s on 3 L/m per nasal cannula. He's been afebrile. Hemodynamically stable. Chest x-ray continues to show increased bilateral infiltrates. White count 5.9. Hemoglobin 12.3. D-dimer 0.93. Sodium 134. Potassium 4.1. Creatinine 0.86. Glucose 158. AST 87. ALT 62. LDH 81. C-reactive protein 4.4. On 01/25/2021 patient seen in follow-up on medical surgical floor. He is awake and alert, in no acute distress, breathing comfortably, although still has a persistent cough, does have exertional dyspnea. He is currently on 4 L of oxygen and his pulse ox is borderline between 87-92%. No fever or chills, blood pressure is been stable, patient has been ambulate into the bathroom. Today's chest x-ray shows progressive changes in the lungs with increasing bilateral i nfiltrates. Patient remains on Decadron 6 mg daily, prophylactic Lovenox, he is on inhaled Bearden dilators, he is on COVID-19 vitamins. His labs from yesterday showed a d-dimer of 0.93, electrolytes and renal profile were fairly unremarkable, his AST and ALT were improving and were down to 87 and 62 respectively, his inflammatory markers showed a trend for improvement with LDH at 881, and CRP of 4.4. Reevaluated today on 01/26/2021, patient remains on the regular medical floor, his condition got a bit worse yesterday, he is now on 15 L nasal cannula high flow, and his O2 saturation is ranging between 90 up to 96%. However the patient does not seem to be in any distress, he is afebrile with a temp of 97 9 he had a T-max of 100.4 last night. Vital signs are stable. Blood pressure 113/43. Previous count is 11.8 hemoglobin is 11.5, d-dimer went up to 12.66, however workup for pulmonary embolism and venous Doppler came back negative yesterday last night. Patient is on the COVID-19 cocktail, he refused taking remdesivir when he qualified, he is on Lovenox at 40 mg subcu daily, he is also on vitamin D, vitamin C, zinc, and he is on Decadron 6 mg by mouth daily. Evaluated today on 02/07/2021, patient remains in the ICU, intubated and mechanically ventilated. He is presently on assist control rate of 30 tidal volume 420 FiO2 50% PEEP of 14. ABG showed a pO2 of 60 pCO2 of 71 pH of 7.39. A shunt is on propofol at 14 Nimbex at 1.5, he is also on Dilaudid when necessary, IV fluid at KVO. His renal profile showed a BUN of 57 creatinine 1.8. While I was evaluating the patient, shortly after the patient developed an episode of atrial fibrillation with RVR, recommended amiodarone to be started as per protocol, and starting amiodarone drip on this patient. Patient is not re ashleigh for any weaning trials at this point specially with his new onset atrial fibrillation with RVR. His electrolytes are normal BUN is 57 creatinine 1.18. She count is 12.4 hemoglobin is 8.1. X-ray continues to show diffuse bilateral infiltrates. Not much of a change or improvement noted. Patient remains on the COVID-19 cocktail. Remains on Decadron 6 mg IV push daily. Lovenox was increased to 80 mg subcu twice a day. Patient is also on Baricitinib. Amiodarone was added today. Objective - Vital Signs Vital signs: Vital Signs Temp 97.9 F 02/07/21 04:00 Pulse 163 H 02/07/21 13:00 Resp 30 H 02/07/21 13:00 BP 90/64 02/07/21 13:00 Pulse Ox 88 L 02/07/21 13:00 Intake & Output 02/06/21 02/07/21 02/07/21 18:59 06:59 18:59 Intake Total 608.981 8976 359.312 Output Total 2931 2100 2585 Balance -2434.464 -706 -2225.688 Weight 76.5 kg 74 kg Intake: IV 100 600 Sodium Chloride 0.9% 1, 100 600 000 ml @ 50 mls/hr IV . Q20H [facility]ERY[facility] Rx#:[id number] Intake, IV Titration 354.536 200 359.312 Amount Cisatracurium 200 mg In 175.384 Sodium Chloride 0.9% 180 ml @ 2 MCG/KG/MIN 8.709 mls/hr IV .[id number] [facility]ERY[facility] Rx #:[id number] Sodium Chloride 0.9% 1, 160 100 000 ml @ 20 mls/hr IV . Q24H [facility]ERYL Rx#:[id number] propofoL 1,000 mg In 194.536 200 83.928 Empty Bag 1 bag @ Titrate IV .Q0M CHERYL Rx#: [id number] Tube Feeding 42 504 Other 90 Output: Urine 2930 2100 2585 Stool 1 Other: Voiding Method Indwelling Catheter Indwelling Catheter Indwelling Catheter ABP, PAP, CO, CI - Last Documented Arterial Blood Pressure 114/84 - Exam Physical Exam: Revealed a 75-year-old white male , intubated and mechanically ventilated. Head: Atraumatic normocephalic. HEENT:[Neck is supple.] [No neck masses.] [No thyromegaly.] [No JVD.] Chest: Crackles at the bases bilaterally. No rhonchi and no wheezes Cardiac Exam: [Normal S1 and S2, no S3 gallop, no murmur.] Abdomen: [Soft, nontender, no megaly, no rebound, no guarding, normal bowel sounds.] Extremities: [No clubbing, no edema, no cyanosis.] Neurological Exam: Not assessed, patient is sedated. And he is paralyzed Psychiatric: Cannot assess patient is sedated and paralyzed. Skin: No rashes. - Labs CBC & Chem 7: 02/07/21 03:44 02/07/21 03:42 Labs: Abnormal Lab Results - Last 24 Hours (Table) 02/06/21 02/06/21 02/07/21 Range/Units 18:12 23:31 03:42 WBC (3.8-10.6) k/uL RBC (4.30-5.90) m/uL Hgb (13.0-17.5) gm/dL Hct (39.0-53.0) % MCHC (31.0-37.0) g/dL Neutrophils # (1.3-7.7) k/uL Lymphocytes # (1.0-4.8) k/uL ABG pCO2 (35-45) mmHg ABG pO2 (83-108) mmHg ABG HCO3 (21-25) mmol/L ABG Total CO2 (19-24) mmol/L ABG O2 Saturation (94-97) % Chloride 97 L (98-107) mmol/L Carbon Dioxide 38 H (22-30) mmol/L BUN 57 H (9-20) mg/dL Glucose 115 H (74-99) mg/dL POC Glucose (mg/dL) 188 H 142 H (75-99) mg/dL Total Protein 5.1 L (6.3-8.2) g/dL Albumin 2.4 L (3.5-5.0) g/dL 02/07/21 02/07/21 02/07/21 Range/Units 03:44 05:16 05:40 WBC 12.4 H (3.8-10.6) k/uL RBC 2.87 L (4.30-5.90) m/uL Hgb 8.1 L (13.0-17.5) gm/dL Hct 27.0 L (39.0-53.0) % MCHC 30.2 L (31.0-37.0) g/dL Neutrophils # 11.9 H (1.3-7.7) k/uL Lymphocytes # 0.2 L (1.0-4.8) k/uL ABG pCO2 71 H* (35-45) mmHg ABG pO2 60 L (83-108) mmHg ABG HCO3 43 H* (21-25) mmol/L ABG Total CO2 45 H (19-24) mmol/L ABG O2 Saturation 91.5 L (94-97) % Chloride (98-107) mmol/L Carbon Dioxide (22-30) mmol/L BUN (9-20) mg/dL Glucose (74-99) mg/dL POC Glucose (mg/dL) 130 H (75-99) mg/dL Total Protein (6.3-8.2) g/dL Albumin (3.5-5.0) g/dL 02/07/21 Range/Units 12:04 WBC (3.8-10.6) k/uL RBC (4.30-5.90) m/uL Hgb (13.0-17.5) gm/dL Hct (39.0-53.0) % MCHC (31.0-37.0) g/dL Neutrophils # (1.3-7.7) k/uL Lymphocytes # (1.0-4.8) k/uL ABG pCO2 (35-45) mmHg ABG pO2 (83-108) mmHg ABG HCO3 (21-25) mmol/L ABG Total CO2 (19-24) mmol/L ABG O2 Saturation (94-97) % Chloride (98-107) mmol/L Carbon Dioxide (22-30) mmol/L BUN (9-20) mg/dL Glucose (74-99) mg/dL POC Glucose (mg/dL) 154 H (75-99) mg/dL Total Protein (6.3-8.2) g/dL Albumin (3.5-5.0) g/dL Assessment and Plan Assessment: #1. Acute hypoxic respiratory failure secondary to COVID-19 pneumonia, not v accinated. Symptoms started on 01/17, patient took ivermectin on outpatient basis, refused Remdesivir currently on Decadron is also on prophylactic anticoagulation, he is on COVID-19 cocktail. Received Baricitinib, on 1217, patient was transferred to the ICU and he was intubated. Remains intubated and mechanically ventilated since 02/02. He is on assist control mode of mechanical ventilation. Sedated and paralyzed. Patient is now on a combination of Baricitinib and Decadron. He is also on anti-ventilation therapy. He was found to have bilateral lower extremity DVT. Remains on diuretics. #2. Elevated inflammatory markers related to the above, slightly improved #3. Elevated transaminases, improving #4. History of COPD with diffuse centrilobar emphysema #5. Former smoker #6. Coronary artery disease with previous coronary artery bypass grafting 4 in 2018 #7. Mitral valve repair #8. Crohn's disease #9. Hypertension #10. History of systolic CHF #11 new-onset atrial fibrillation on 02/07/21, started patient on amiodarone. Recommendation: Continue ventilatory support. Patient is now on assist control rate of 30 tidal volume 420 FiO2 50% PEEP of 14. Continue COVID-19 cocktail as above. Start patient on amiodarone. Consult cardiology. Continue enteral feeding. Continue Nimbex propofol and Dilaudid when necessary. Monitor renal profile on a daily basis. Continue GI prophylaxis. CODE STATUS has been changed to no code. Nephrology continues to see for acute kidney injury. Creatinine has been stable. Continue to monitor inflammatory markers. We will continue to follow. Critical care time is over 30 minutes Time with Patient: Greater than 30
[2021-02-07] MEDS: NOREPINEPHRINE 4 MG in SODIUM CHLORIDE 0.9% 250 ML IV SCH (16:44)
[2021-02-07] MEDS: SODIUM CHLORIDE 0.9% 1,000 ML IV SCH (16:45)
[2021-02-07 17:32] LABS: Glucose,Whole Blood 184 mg/dL (75-99)
[2021-02-07] MEDS: AMIODARONE 450 MG in DEXTROSE 5% IN WATER 250 ML IV SCH ×2 (17:41)
[2021-02-07 23:42] LABS: Glucose,Whole Blood 153 mg/dL (75-99)
--- NOTE | 2021-02-07 23:47 | P.PN ---
Subjective From records: 74-year-old patient who follows with Dr. Mauricio Keith. Tonic stable medical conditions include hypertension, Crohn's disease, nephrolithiasis, BPH, hypertension, tinnitus, COPD, CAD with bypass. EF of 20-25%. Presented with shortness of breath. Diagnosed with COVID 19 on January 18 symptoms starting 1 day before. He was found to be hypoxic at home. Upon arrival he was 85%. Patient declined treatment with Remdesivir. Patient had been taking ivermectin as outpatient. She requested this to be continued. This was declined by the admitting team as this was not approved treatment. Patient not vaccinated against COVID. She did with subcu Lovenox and dexamethasone. January 24: Patient feeling better. On 3 L nasal cannula. Oral intake fair. Up in a bed. Slight cough. January 25: Sitting up in a recliner. Tired. Has some chest tightness. 92% on 4 L. Oral intake good. January 26: Bit more short of breath. Oxygen requirement: Up to 15 L. Had low-grade fever. Eating about 50-75%. Tired. Up in a chair. January 27: Short of breath. Sitting at the edge of the bed. 15 L nasal cannula. Decreased appetite. January 28: Laying in bed. Tired. Short of breath. On 15 L nonrebreather. Oral intake fair. Started on Baricitinib by pulmonary January 29: Patient is become more short of breath. Placed on BiPAP. Decreased oral intake. Tired. On Baricitinib, dexamethasone. January 30: Sitting up in a chair. Using BiPAP. Short of breath. Decreased oral intake. On Baricitinib) dexamethasone. Acute PE on CT chest. Started on eliquis January 31: Sitting at the edge of the bed. BiPAP. Short of breath. Tired. On eliquis, on Baricitinib, dexamethasone. February 01: Laying in bed. Short of breath. BiPAP. Tired. On Baricitinib, dexamethasone, eliquis. Eating reasonably well. February 02: Rather tired short of breath BiPAP 100%. On dexamethasone, eliquis February 03: ICU: Intubated yesterday. Prone position. Ventilator FiO2 70 PEEP of 12. Drips included propofol and Nimbex. Subjective: 02/04/2021 This is a pleasant 75 years old male with multiple medical problems resented wi th respiratory distress secondary to bilateral Covid pneumonia with hypoxemia requiring intubation and mechanical ventilation, patient apparently was intubated yesterday while he was in the ICU. Patient is been followed closely in the ICU and his been treated with dexamethasone, vitamin C and D and zinc. Also he is on Lovenox and Pepcid. Patient also with hematuria while he is on blood thinner. Incident Response Specialist team on the case. Also urologist was called. For hematuria and recommended outpatient cystoscopy and urethrogram 02/05/2021 Patient remains intubated and sedated to the ICU with pulmonary/critical care team helped with the vent management. Currently he requires FiO2 of 60%, slightly worse than yesterday Patient is admitted with Covid pneumonia and hypoxia associated also with mild acute kidney injury and gross hematuria has been seen and followed closely by nephrology and urology who recommended outpatient workup. Also patient with history of PE and was on Eliquis, daily Doppler was positive for bilateral DVT, currently he is comfortable with Lovenox 80 mg twice a day. Discharge x-ray showing persistent bilateral stable diffuse infiltrate This as a treatment for his Covid pneumonia including dexamethasone, vitamin C, vitamin D, zinc and barcitinib . 02/06/2021 Patient remains in critical condition in the ICU, she still intubated and sedated. No much progress she still on FiO2 of 50% which is slightly improved. He is been afebrile today compared to yesterday he had a fever of 100. Leukocytosis down to 11.3 today. Creatinine is stable at 1.3. Chest x-ray is the same with pneumonia versus ARDS versus CHF IV Lasix 40 mg twice a day was added today Patient continued to the treatment for Covid with picks up with his own, vitamin C, vitamin D, zinc and barcitinib .. Also he is on Lovenox 80 mg twice a day for his history of PE. Neurologist saw the patient on admission to the ICU for hematuria and recommended outpatient follow-up. Progresses remains guarded and family opted for DO NOT RESUSCITATE today was noted 02/07/2021 Patient's on mechanical ventilation in critical condition and gradually getting worse with his Covid pneumonia. Pulmonary/critical care team following him closely and help with vent management. No fever more than 24-48 hours. Distal on FiO2 of 50% and PEEP of 14. he is tachypneic. However patient today developed Since A. fib and RVR WBC and slightly worsened 12 K, creatinine within the reference range today at 1.1. ABG showing pH back to reference range today at 7.39. PCO2 is still elevated 71. Patient continued on the same and treatment of dexamethasone, vitamin C, D and zinc. barcitinib and Lovenox therapeutic dose 80 mg twice a day for his history of pulmonary embolism. And IV Lasix. Heart rate is controlled with amiodarone drip Today cardiology team were consulted and patient currently has DO NOT RESUSCITATE code order Objective - Vital Signs Vital signs: Vital Signs Temp 97.9 F 02/07/21 04:00 Pulse 102 H 02/07/21 11:00 Resp 30 H 02/07/21 11:00 BP 140/63 02/07/21 11:00 Pulse Ox 88 L 02/07/21 11:00 Intake & Output 02/06/21 02/07/21 02/07/21 18:59 06:59 18:59 Intake Total 654.150 2122 339.312 Output Total 2931 2100 1260 Balance -2434.464 -706 -920.688 Weight 76.5 kg 74 kg Intake: IV 100 600 Sodium Chloride 0.9% 1, 100 600 000 ml @ 50 mls/hr IV . Q20H [facility] Rx#:[id number] Intake, IV Titration 354.536 200 339.312 Amount Cisatracurium 200 mg In 175.384 Sodium Chloride 0.9% 180 ml @ 2 MCG/KG/MIN 8.709 mls/hr IV .[id number] [facility] Rx #:[id number] Sodium Chloride 0.9% 1, 160 80 000 ml @ 20 mls/hr IV . Q24H [facility] Rx#:[id number] propofoL 1,000 mg In 194.536 200 83.928 Empty Bag 1 bag @ Titrate IV .Q0M [facility] Rx#: [id number] Tube Feeding 42 504 Other 90 Output: Urine 2930 2100 1260 Stool 1 Other: Voiding Method Indwelling Catheter Indwelling Catheter ABP, PAP, CO, CI - Last Documented Arterial Blood Pressure 114/84 - Exam -GENERAL: The patient is intubated and sedated HEENT: Pupils are round and equally reacting to light. EOMI. No scleral icterus. No conjunctival pallor. Normocephalic, atraumatic. No pharyngeal erythema. No thyromegaly. CARDIOVASCULAR: S1 and S2 present. No murmurs, rubs, or gallops. PULMONARY: Chest is clear to auscultation, no wheezing or crackles. ABDOMEN: Soft, nontender, nondistended, normoactive bowel sounds. No palpable organomegaly. MUSCULOSKELETAL: No joint swelling or deformity. EXTREMITIES: No cyanosis, clubbing, or pedal edema. NEUROLOGICAL: Gross neurological examination did not reveal any focal deficits. SKIN: No rashes. no petechiae. - Labs CBC & Chem 7: 02/07/21 03:44 02/07/21 03:42 Labs: Abnormal Lab Results - Last 24 Hours (Table) 02/06/21 02/06/21 02/07/21 Range/Units 18:12 23:31 03:42 WBC (3.8-10.6) k/uL RBC (4.30-5.90) m/uL Hgb (13.0-17.5) gm/dL Hct (39.0-53.0) % MCHC (31.0-37.0) g/dL Neutrophils # (1.3-7.7) k/uL Lymphocytes # (1.0-4.8) k/uL ABG pCO2 (35-45) mmHg ABG pO2 (83-108) mmHg ABG HCO3 (21-25) mmol/L ABG Total CO2 (19-24) mmol/L ABG O2 Saturation (94-97) % Chloride 97 L (98-107) mmol/L Carbon Dioxide 38 H (22-30) mmol/L BUN 57 H (9-20) mg/dL Glucose 115 H (74-99) mg/dL POC Glucose (mg/dL) 188 H 142 H (75-99) mg/dL Total Protein 5.1 L (6.3-8.2) g/dL Albumin 2.4 L (3.5-5.0) g/dL 02/07/21 02/07/21 02/07/21 Range/Units 03:44 05:16 05:40 WBC 12.4 H (3.8-10.6) k/uL RBC 2.87 L (4.30-5.90) m/uL Hgb 8.1 L (13.0-17.5) gm/dL Hct 27.0 L (39.0-53.0) % MCHC 30.2 L (31.0-37.0) g/dL Neutrophils # 11.9 H (1.3-7.7) k/uL Lymphocytes # 0.2 L (1.0-4.8) k/uL ABG pCO2 71 H* (35-45) mmHg ABG pO2 60 L (83-108) mmHg ABG HCO3 43 H* (21-25) mmol/L ABG Total CO2 45 H (19-24) mmol/L ABG O2 Saturation 91.5 L (94-97) % Chloride (98-107) mmol/L Carbon Dioxide (22-30) mmol/L BUN (9-20) mg/dL Glucose (74-99) mg/dL POC Glucose (mg/dL) 130 H (75-99) mg/dL Total Protein (6.3-8.2) g/dL Albumin (3.5-5.0) g/dL 02/07/21 Range/Units 12:04 WBC (3.8-10.6) k/uL RBC (4.30-5.90) m/uL Hgb (13.0-17.5) gm/dL Hct (39.0-53.0) % MCHC (31.0-37.0) g/dL Neutrophils # (1.3-7.7) k/uL Lymphocytes # (1.0-4.8) k/uL ABG pCO2 (35-45) mmHg ABG pO2 (83-108) mmHg ABG HCO3 (21-25) mmol/L ABG Total CO2 (19-24) mmol/L ABG O2 Saturation (94-97) % Chloride (98-107) mmol/L Carbon Dioxide (22-30) mmol/L BUN (9-20) mg/dL Glucose (74-99) mg/dL POC Glucose (mg/dL) 154 H (75-99) mg/dL Total Protein (6.3-8.2) g/dL Albumin (3.5-5.0) g/dL Assessment and Plan Assessment: Bilateral Covid pneumonia Acute hypoxic respiratory failure Increased inflammatory markers New-onset A. fib with RVR Hematuria Acute kidney injury History of PE on anticoagulation Plan: This is a pleasant 75 years old male who presents with Bilateral Covid pneumonia and hypoxia Continue with vitamin C, vitamin D, and zinc. Continue with dexamethasone Pulmonary team consult urology and nephrology Patient will benefit from outpatient cystoscopy Cardiology consult. Keep the patient on amiodarone drip Labs and medication were reviewed.. Continue same treatment. Continue with symptomatic treatment. Resume home medication. Monitor lytes and vitals. DVT and GI prophylaxis. Further recommendations as per clinical course of the patient DVT prophylaxis: Subcutaneous Lovenox 80 mg twice a day GI Prophylaxis: Pepcid No code Prognosis is guarded
[2021-02-08] MEDS: NOREPINEPHRINE 4 MG in SODIUM CHLORIDE 0.9% 250 ML IV SCH (04:10)
[2021-02-08] MEDS: ARTIFICIAL TEARS-HYPROMELLOSE DROPS 15 ML BTL BOTH EYES SCH ×5 (04:10→19:39)
[2021-02-08 04:43] LABS: Basophils % (A) 0 %; Eosinophils % (A) 0 %; HCT 25.5 % (39.0-53.0); Hypochromasia Moderate; Lymphocytes # (A) 0.2 k/uL (1.0-4.8); Lymphocytes % (A) 2 %; MCH 28.9 pg (25.0-35.0); MCHC 31.3 g/dL (31.0-37.0); MCV 92.5 fL (80.0-100.0); Monocytes # (A) 0.4 k/uL (0-1.0); Monocytes % (A) 3 %; Neutrophils # (A) 10.8 k/uL (1.3-7.7); Neutrophils % (A) 94 %; Platelet Count 450 k/uL (150-450); RBC 2.76 m/uL (4.30-5.90); RDW 14.9 % (11.5-15.5); WBC 11.5 k/uL (3.8-10.6)
[2021-02-08 04:57] LABS: Albumin 2.2 g/dL (3.5-5.0); Potassium 4.7 mmol/L (3.5-5.1); Total Bilirubin 0.4 mg/dL (0.2-1.3)
[2021-02-08] MEDS: INSULIN ASPART (NovoLOG) 100 UNIT/ML VIAL SQ SCH ×3 (05:49→18:15)
[2021-02-08] MEDS ORDERED: AMIODARONE 450 MG in DEXTROSE 5% IN WATER 250 ML IV SCH ×2 (08:15)
--- NOTE | 2021-02-08 08:39 | XR ---
EXAMINATION TYPE: XR chest 1V portable DATE OF EXAM: 02/08/2021 COMPARISON: Chest x-ray 02/07/2021 HISTORY: Intubated TECHNIQUE: Single frontal view of the chest is obtained. FINDINGS: Endotracheal tube, left subclavian central venous catheter, NG tube are overlying appropri ate positions, stable. Bilateral interstitial and airspace disease within the lungs is again seen, si milar to prior exam. No evident pneumothorax or pleural effusion. Patient is post median sternotomy. Cardiac mediastinal silhouette shows a similar appearance, patient is rotated. IMPRESSION: There is no significant interval change. Correlate for pneumonia, ARDS, edema
[2021-02-08] MEDS: ASCORBIC ACID 500 MG TAB PO SCH (08:45)
[2021-02-08] MEDS: ZINC SULFATE 220 MG CAP PO SCH (08:45)
[2021-02-08] MEDS: ALBUTEROL HFA INHALER INHALATION SCH ×4 (08:45→21:06)
[2021-02-08] MEDS: CYANOCOBALAMIN 500 MCG TAB PO SCH (08:45)
[2021-02-08] MEDS: dexAMETHasone 2 MG TAB PO SCH (08:46)
[2021-02-08] MEDS: FUROSEMIDE 10 MG/ML 4 ML VIAL IV SCH (08:46)
[2021-02-08] MEDS: fentaNYL (PF). 1,000 MCG in SODIUM CHLORIDE 0.9% 80 ML IV SCH ×2 (08:46→18:52)
[2021-02-08] MEDS: TAMSULOSIN 0.4 MG CAP.ER.24H PO SCH ×2 (08:46→21:18)
[2021-02-08] MEDS: CISATRACURIUM 200 MG in SODIUM CHLORIDE 0.9% 180 ML IV SCH (08:47)
--- NOTE | 2021-02-08 11:23 | P.PN ---
Subjective Progress Note Date: 02/08/21 Principal diagnosis: Acute hypoxic respiratory failure secondary to COVID-19 pneumonia This is a 75-year-old male patient who follows with Dr. Mauricio Keith is his primary care provider. He has a history of coronary artery disease with previous coronary artery bypass grafting, mitral valve replacement, hypertension, hyperlipidemia, chronic obstructive pulmonary disease, former smoker, Crohn's disease. On January 17 the patient started having symptoms of fever cough congestion weakness and was tested for COVID-19 on January 18. He found out his results on January 21 and was told to stay home and rest unless his symptoms worsened. He was given doxycycline and prednisone 20 mg twice a day. His brought him into the emergency room here today as his oxygen levels were dropping at home. Chest x-rays revealing patchy bilateral interstitial pneumonia with underlying COPD. White count 2.8. Hemoglobin 12.9. Platelets 149. Lymphocytes 0.2. D-dimer 0.83. Sodium 133. Potassium 4.7. Creatinine 1.06. Glucose 154. AST 122. ALT 75. LDH 1082. C-reactive protein 6.4. Chronic virus by PCR positive. The patient is not vaccinated. He is seen today in the emergency room. Awake and alert in no acute distress. Sitting up on a stretcher. He is 85% O2 saturation on room air. 93% on 2 L per nasal cannula. Afebrile. Hemodynamically stable. He's been initiated on Lovenox and vitamin supplements. He will be started on Decadron. We discussed with him the possibility for Remdesivir which he is reluctant to receive. His who is sitting next to him is also having symptoms and she plans to go get tested today. The patient is seen today 01/24/2021 in follow-up on the observation unit. He is currently sitting up in bed. Awake and alert in no acute distress. He is feeling quite a bit better. Feeling stronger today. He did decline Remdesivir. He has been maintained on Lovenox, Decadron, vitamin supplements. He is currently maintaining O2 saturation in the low 90s on 3 L/m per nasal cannula. He's been afebrile. Hemodynamically stable. Chest x-ray continues to show increased bilateral infiltrates. White count 5.9. Hemoglobin 12.3. D-dimer 0.93. Sodium 134. Potassium 4.1. Creatinine 0.86. Glucose 158. AST 87. ALT 62. LDH 81. C-reactive protein 4.4. On 01/25/2021 patient seen in follow-up on medical surgical floor. He is awake and alert, in no acute distress, breathing comfortably, although still has a persistent cough, does have exertional dyspnea. He is currently on 4 L of oxygen and his pulse ox is borderline between 87-92%. No fever or chills, blood pressure is been stable, patient has been ambulate into the bathroom. Today's chest x-ray shows progressive changes in the lungs with increasing bilateral i nfiltrates. Patient remains on Decadron 6 mg daily, prophylactic Lovenox, he is on inhaled Mora dilators, he is on COVID-19 vitamins. His labs from yesterday showed a d-dimer of 0.93, electrolytes and renal profile were fairly unremarkable, his AST and ALT were improving and were down to 87 and 62 respectively, his inflammatory markers showed a trend for improvement with LDH at 881, and CRP of 4.4. Reevaluated today on 01/26/2021, patient remains on the regular medical floor, his condition got a bit worse yesterday, he is now on 15 L nasal cannula high flow, and his O2 saturation is ranging between 90 up to 96%. However the patient does not seem to be in any distress, he is afebrile with a temp of 97 9 he had a T-max of 100.4 last night. Vital signs are stable. Blood pressure 113/43. Previous count is 11.8 hemoglobin is 11.5, d-dimer went up to 12.66, however workup for pulmonary embolism and venous Doppler came back negative yesterday last night. Patient is on the COVID-19 cocktail, he refused taking remdesivir when he qualified, he is on Lovenox at 40 mg subcu daily, he is also on vitamin D, vitamin C, zinc, and he is on Decadron 6 mg by mouth daily. Evaluated today on 02/07/2021, patient remains in the ICU, intubated and mechanically ventilated. He is presently on assist control rate of 30 tidal volume 420 FiO2 50% PEEP of 14. ABG showed a pO2 of 60 pCO2 of 71 pH of 7.39. A shunt is on propofol at 14 Nimbex at 1.5, he is also on Dilaudid when necessary, IV fluid at KVO. His renal profile showed a BUN of 57 creatinine 1.8. While I was evaluating the patient, shortly after the patient developed an episode of atrial fibrillation with RVR, recommended amiodarone to be started as per protocol, and starting amiodarone drip on this patient. Patient is not re ashleigh for any weaning trials at this point specially with his new onset atrial fibrillation with RVR. His electrolytes are normal BUN is 57 creatinine 1.18. She count is 12.4 hemoglobin is 8.1. X-ray continues to show diffuse bilateral infiltrates. Not much of a change or improvement noted. Patient remains on the COVID-19 cocktail. Remains on Decadron 6 mg IV push daily. Lovenox was increased to 80 mg subcu twice a day. Patient is also on Baricitinib. Amiodarone was added today. Reevaluated today on 02/08/21, patient remains in the ICU intubated and mechanically ventilated. He is now on assist control rate of 30 tidal volume 420 FiO2 60% and I cut it down to 50% PEEP is at 14. ABG today showed a pO2 of 60 pCO2 71 pH of 7.39. His electrolytes are normal BUN is 63 creatinine 1.47 WBC count is 11.5 hemoglobin is 8.0. Chest x-ray is not showing much of an improvement, continues to have bilateral infiltrates. Patient is on multiple drips including fentanyl at 1, propofol at 3 0 mcg/kg/m, Nimbex at 1.5 mcg/kg/m amiodarone 0.5 mg/m. Patient is on norepinephrine at 0.03 mcg/kg/m is also on enteral feeding/utilizing Nepro at 32 mL per hour and sputum cultures are normal nondiagnostic. Patient is now on oral amiodarone at 20 mg 3 times a day, and IV amiodarone has been discontinued. Patient is on ascorbic acid, I have discontinued his colazal, and it may confuse the picture because it is known to cause pneumonitis/drug-induced pneumonitis. I kept the patient on Baricitinib, remains on Lovenox 80 mg subcu twice a day specially with his atrial fibrillation and RVR although today he went back to normal sinus rhythm. Patient remains on the COVID-19 cocktail. At this point I don't see any room to wean or extubated the patient, he will remain intubated mechanically ventilated and sedated. I would also keep him paralyzed since the patient is requiring relatively high PEEP, and chest x-ray is not showing much improvement he still requiring relatively high FiO2 it was 60% and I cut it down today to 50% Objective - Vital Signs Vital signs: Vital Signs Temp 97.6 F 02/08/21 04:00 Pulse 56 L 02/08/21 07:00 Resp 30 H 02/08/21 07:00 BP 98/60 02/08/21 07:00 Pulse Ox 99 02/08/21 07:00 Intake & Output 02/07/21 02/08/21 02/08/21 18:59 06:59 18:59 Intake Total 918.595 7568.194 304.325 Output Total 2805 1665 50 Balance -2216.930 -499.806 254.325 Weight 73.4 kg Intake: Intake, IV Titration 588.070 613.194 262.325 Amount Cisatracurium 200 mg In 175.384 156.115 Sodium Chloride 0.9% 180 ml @ 2 MCG/KG/MIN 8.709 mls/hr IV .[id number] [facility] Rx #:[id number] Norepinephrine 4 mg In 28.758 143.694 Sodium Chloride 0.9% 250 ml @ 0.05 MCG/KG/MIN 13. 826 mls/hr IV .[id number] [facility] Rx#:[id number] Sodium Chloride 0.9% 1, 200 240 20 000 ml @ 20 mls/hr IV . Q24H [facility] Rx#:[id number] fentaNYL (PF). 1,000 mcg 68.82 86.21 In Sodium Chloride 0.9% 80 ml @ 1 MCG/KG/HR 7.4 mls/hr IV .[id number] [facility] Rx #:[id number] propofoL 1,000 mg In 183.928 160.680 Empty Bag 1 bag @ Titrate IV .Q0M [facility] Rx#: [id number] Tube Feeding 462 42 Other 90 Output: Urine 2805 1665 50 Other: Voiding Method Indwelling Catheter Indwelling Catheter ABP, PAP, CO, CI - Last Documented Arterial Blood Pressure 114/84 - Exam Physical Exam: Revealed a 75-year-old white male , intubated and mechanically ventilated. Head: Atraumatic normocephalic. HEENT:[Neck is supple.] [No neck masses.] [No thyromegaly.] [No JVD.] Chest: Crackles at the bases bilaterally. No rhonchi and no wheezes Cardiac Exam: [Normal S1 and S2, no S3 gallop, no murmur.] Abdomen: [Soft, nontender, no megaly, no rebound, no guarding, normal bowel sounds.] Extremities: [No clubbing, no edema, no cyanosis.] Neurological Exam: Not assessed, patient is sedated. And he is paralyzed Psychiatric: Cannot assess patient is sedated and paralyzed. Skin: No rashes. - Labs CBC & Chem 7: 02/08/21 04:26 02/08/21 04:25 Labs: Abnormal Lab Results - Last 24 Hours (Table) 02/07/21 02/07/21 02/07/21 Range/Units 12:04 17:30 23:41 WBC (3.8-10.6) k/uL RBC (4.30-5.90) m/uL Hgb (13.0-17.5) gm/dL Hct (39.0-53.0) % Neutrophils # (1.3-7.7) k/uL Lymphocytes # (1.0-4.8) k/uL Chloride (98-107) mmol/L Carbon Dioxide (22-30) mmol/L BUN (9-20) mg/dL Creatinine (0.66-1.25) mg/dL Glucose (74-99) mg/dL POC Glucose (mg/dL) 154 H 184 H 153 H (75-99) mg/dL Calcium (8.4-10.2) mg/dL AST (17-59) U/L Total Protein (6.3-8.2) g/dL Albumin (3.5-5.0) g/dL 02/08/21 02/08/21 Range/Units 04:25 04:26 WBC 11.5 H (3.8-10.6) k/uL RBC 2.76 L (4.30-5.90) m/uL Hgb 8.0 L (13.0-17.5) gm/dL Hct 25.5 L (39.0-53.0) % Neutrophils # 10.8 H (1.3-7.7) k/uL Lymphocytes # 0.2 L (1.0-4.8) k/uL Chloride 93 L (98-107) mmol/L Carbon Dioxide 40 H (22-30) mmol/L BUN 63 H (9-20) mg/dL Creatinine 1.47 H (0.66-1.25) mg/dL Glucose 128 H (74-99) mg/dL POC Glucose (mg/dL) (75-99) mg/dL Calcium 8.0 L (8.4-10.2) mg/dL AST 287 H (17-59) U/L Total Protein 5.0 L (6.3-8.2) g/dL Albumin 2.2 L (3.5-5.0) g/dL Assessment and Plan Assessment: #1. Acute hypoxic respiratory failure secondary to COVID-19 pneumonia, not vaccinated. Symptoms started on 01/17, patient took ivermectin on outpatient basis, refused Remdesivir currently on Decadron is also on prophylactic anticoagulation, he is on COVID-19 cocktail. Received Baricitinib, on 1217, patient was transferred to the ICU and he was intubated. Remains intubated and mechanically ventilated since 02/02. He is on assist control mode of mechanical ventilation. Sedated and paralyzed. Patient is now on a combination of Baricitinib and Decadron. He was found to have bilateral lower extremity DVT. Remains on diuretics. Cut down his Lasix today to 40 mg IV push daily instead of twice a day. #2. Elevated inflammatory markers related to the above, improving. #3. Elevated transaminases, improving #4. History of COPD with diffuse centrilobar emphysema #5. Former smoker #6. Coronary artery disease with previous coronary artery bypass grafting 4 in 2018 #7. Mitral valve repair #8. Crohn's disease #9. Hypertension #10. History of systolic CHF #11 new-onset atrial fibrillation on 02/07/21, started patient on amiodarone. Transition today from IV amiodarone to oral amiodarone. Being followed by cardiology. Recommendation: Continue ventilatory support. Patient is now on assist control rate of 30 tidal volume 420 FiO2 50% PEEP of 14. Continue COVID-19 cocktail as above. Continue amiodarone. Continue enteral feeding. Continue Nimbex propofol and fentanyl. Monitor renal profile on a daily basis. Cut down on diuretics to 40 mg of Lasix IV push daily instead of twice a day. Continue GI prophylaxis. CODE STATUS has been changed to no code. Nephrology is evaluating his renal status. Continue to monitor inflammatory markers. We will continue to follow. Critical care time is over 30 minutes
[2021-02-08 11:56] LABS: Glucose,Whole Blood 143 mg/dL (75-99)
[2021-02-08] MEDS: AMIODARONE 200 MG TAB PO SCH ×3 (11:59→21:19)
[2021-02-08] MEDS: ENOXAPARIN 80 MG/0.8 ML SYRINGE SQ SCH ×2 (12:03→21:15)
[2021-02-08] MEDS: CHLORHEXIDINE GLUCONATE 15 ML CUP MUCOUS MEM SCH ×2 (12:03→21:18)
--- NOTE | 2021-02-08 12:37 | P.PN ---
Subjective Progress Note Date: 02/08/21 Follow-up for acute kidney injury. Objective - Vital Signs Vital signs: Vital Signs Temp 97.9 F 02/08/21 12:00 Pulse 64 02/08/21 12:00 Resp 30 H 02/08/21 12:00 BP 108/67 02/08/21 12:00 Pulse Ox 94 L 02/08/21 12:00 Intake & Output 02/07/21 02/08/21 02/08/21 18:59 06:59 18:59 Intake Total 110.369 4046.194 842.325 Output Total 2805 1665 590 Balance -2216.930 -499.806 252.325 Weight 73.4 kg 73.4 kg Intake: IV 80 Sodium Chloride 0.9% 1, 80 000 ml @ 20 mls/hr IV . Q24H CHERYL Rx#:[id number] Intake, IV Titration 588.070 613.194 512.325 Amount Amiodarone 450 mg In 250 Dextrose 5% in Water 250 ml @ 0.5 MG/MIN 16.667 mls/hr IV .Q15H CHERYL Rx#: [id number] Cisatracurium 200 mg In 175.384 156.115 Sodium Chloride 0.9% 180 ml @ 2 MCG/KG/MIN 8.709 mls/hr IV .[id number] CHERYL Rx #:[id number] Norepinephrine 4 mg In 28.758 143.694 Sodium Chloride 0.9% 250 ml @ 0.05 MCG/KG/MIN 13. 826 mls/hr IV .[id number] CHERYL Rx#:[id number] Sodium Chloride 0.9% 1, 200 240 20 000 ml @ 20 mls/hr IV . Q24H CHERYL Rx#:[id number] fentaNYL (PF). 1,000 mcg 68.82 86.21 In Sodium Chloride 0.9% 80 ml @ 1 MCG/KG/HR 7.4 mls/hr IV .[id number] [facility]ERYL Rx #:[id number] propofoL 1,000 mg In 183.928 160.680 Empty Bag 1 bag @ Titrate IV .Q0M CHERYL Rx#: [id number] Tube Feeding 462 170 Other 90 80 Output: Urine 2805 1665 590 Other: Voiding Method Indwelling Catheter Indwelling Catheter Indwelling Catheter ABP, PAP, CO, CI - Last Documented Arterial Blood Pressure 114/84 - Exam For to primary team exam, COVID-19 isolation - Labs CBC & Chem 7: 02/08/21 04:26 02/08/21 04:25 Labs: Abnormal Lab Results - Last 24 Hours (Table) 02/07/21 02/07/21 02/08/21 Range/Units 17:30 23:41 04:25 WBC (3.8-10.6) k/uL RBC (4.30-5.90) m/uL Hgb (13.0-17.5) gm/dL Hct (39.0-53.0) % Neutrophils # (1.3-7.7) k/uL Lymphocytes # (1.0-4.8) k/uL Chloride 93 L (98-107) mmol/L Carbon Dioxide 40 H (22-30) mmol/L BUN 63 H (9-20) mg/dL Creatinine 1.47 H (0.66-1.25) mg/dL Glucose 128 H (74-99) mg/dL POC Glucose (mg/dL) 184 H 153 H (75-99) mg/dL Calcium 8.0 L (8.4-10.2) mg/dL AST 287 H (17-59) U/L Total Protein 5.0 L (6.3-8.2) g/dL Albumin 2.2 L (3.5-5.0) g/dL 02/08/21 02/08/21 Range/Units 04:26 11:54 WBC 11.5 H (3.8-10.6) k/uL RBC 2.76 L (4.30-5.90) m/uL Hgb 8.0 L (13.0-17.5) gm/dL Hct 25.5 L (39.0-53.0) % Neutrophils # 10.8 H (1.3-7.7) k/uL Lymphocytes # 0.2 L (1.0-4.8) k/uL Chloride (98-107) mmol/L Carbon Dioxide (22-30) mmol/L BUN (9-20) mg/dL Creatinine (0.66-1.25) mg/dL Glucose (74-99) mg/dL POC Glucose (mg/dL) 143 H (75-99) mg/dL Calcium (8.4-10.2) mg/dL AST (17-59) U/L Total Protein (6.3-8.2) g/dL Albumin (3.5-5.0) g/dL Assessment and Plan Assessment: #1 acute kidney injury secondary to hemodynamic/COVID-19 ATN #2 metabolic alkalosis secondary to respiratory acidosis and diuretic use. #3 volume overload #4 hypoxic respiratory failure secondary to COVID-19 pneumonia Plan: #1 renal function slightly worse today. Agree with decreasing Lasix to 40 mg IV daily. #2 if still diuretics are needed, add acetazolamide 250 mg twice a day for metabolic alkalosis. #3 avoid nephrotoxic agents. #4 ICU care
[2021-02-08] MEDS: BARICITINIB 2 MG TABLET PO SCH (13:49)
[2021-02-08] MEDS: SODIUM CHLORIDE 0.9% 1,000 ML IV SCH (13:50)
[2021-02-08] MEDS: AMIODARONE 450 MG in DEXTROSE 5% IN WATER 250 ML IV SCH ×2 (14:20)
--- NOTE | 2021-02-08 17:34 | P.PN ---
Progress Note - Text Progress Note Date: 02/08/21 Hospital course: 74-year-old patient who follows with Dr. Mauricio Keith. Tonic stable medical conditions include hypertension, Crohn's disease, nephrolithiasis, BPH, hypertension, tinnitus, COPD, CAD with bypass. EF of 20-25%. Presented with shortness of breath. Diagnosed with COVID 19 on January 18 symptoms starting 1 day before. He was found to be hypoxic at home. Upon arrival he was 85%. Patient declined treatment with Remdesivir. Patient had been taking ivermectin as outpatient. She requested this to be continued. This was declined by the admitting team as this was not approved treatment. Patient not vaccinated against COVID. She did with subcu Lovenox and dexamethasone. January 24: Patient feeling better. On 3 L nasal cannula. Oral intake fair. Up in a bed. Slight cough. January 25: Sitting up in a recliner. Tired. Has some chest tightness. 92% on 4 L. Oral intake good. January 26: Bit more short of breath. Oxygen requirement: Up to 15 L. Had low-grade fever. Eating about 50-75%. Tired. Up in a chair. January 27: Short of breath. Sitting at the edge of the bed. 15 L nasal cannula. Decreased appetite. January 28: Laying in bed. Tired. Short of breath. On 15 L nonrebreather. Oral intake fair. Started on Baricitinib by pulmonary January 29: Patient is become more short of breath. Placed on BiPAP. Decreased oral intake. Tired. On Baricitinib, dexamethasone. January 30: Sitting up in a chair. Using BiPAP. Short of breath. Decreased oral intake. On Baricitinib) dexamethasone. Acute PE on CT chest. Started on eliquis January 31: Sitting at the edge of the bed. BiPAP. Short of breath. Tired. On eliquis, on Baricitinib, dexamethasone. February 01: Laying in bed. Short of breath. BiPAP. Tired. On Baricitinib, dexamethasone, eliquis. Eating reasonably well. February 02: Rather tired short of breath BiPAP 100%. On dexamethasone, eliquis February 03: ICU: Intubated yesterday. Prone position. Ventilator FiO2 70 PEEP of 12. Drips included propofol and Nimbex. February 08: ICU: Ventilator FiO2 52 PEEP of 14. 2 feeding at 30 mL an hour. Went into an episode of rapid A. fib last night. Given IV amiodarone. Current drips include norepinephrine, Nimbex, propofol, fentanyl Review of systems: Patient sedated Active Medications Acetaminophen (Acetaminophen Tab 325 Mg Tab) 650 mg PO Q6HR PRN PRN Reason: Fever and/ or Pain Last Admin: 02/02/21 06:07 Dose: 650 mg Documented by: Albuterol Sulfate (Albuterol Hfa Inhaler) 2 puff INHALATION RT-QID [facility] Last Admin: 02/08/21 15:00 Dose: 2 puff Documented by: Albuterol Sulfate (Albuterol Hfa Inhaler) 4 puff INHALATION RT-QID PRN PRN Reason: Shortness Of Breath Or Wheezing Amiodarone HCl (Amiodarone 200 Mg Tab) 200 mg PO TID [facility] Stop: 02/15/21 11:16 Last Admin: 02/08/21 15:57 Dose: 200 mg Documented by: Amiodarone HCl (Amiodarone 200 Mg Tab) 200 mg PO BID [facility] Artificial Tears (Artificial Tears-Hypromellose Drops 15 Ml Btl) 2 drops BOTH EYES Q4HR [facility] Last Admin: 02/08/21 15:57 Dose: 2 drops Documented by: Ascorbic Acid (Ascorbic Acid 500 Mg Tab) 2,000 mg PO DAILY [facility] Last Admin: 02/08/21 08:45 Dose: 2,000 mg Documented by: Baricitinib (Baricitinib 2 Mg Tablet) 2 mg PO DAILY@1400 [facility] Stop: 02/09/21 14:01 Last Admin: 02/08/21 13:49 Dose: 2 mg Documented by: Chlorhexidine Gluconate (Chlorhexidine Gluconate 15 Ml Cup) 15 ml MUCOUS MEM BID [facility] Last Admin: 02/08/21 12:03 Dose: 15 ml Documented by: Cholecalciferol (Cholecalciferol 125 Mcg (5000 Iu) Tablet) 125 mcg PO DAILY [facility] Last Admin: 02/07/21 09:42 Dose: 125 mcg Documented by: Cyanocobalamin (Cyanocobalamin 500 Mcg Tab) 4,000 mcg PO DAILY [facility] Last Admin: 02/08/21 08:45 Dose: 4,000 mcg Documented by: Dexamethasone (Dexamethasone 2 Mg Tab) 6 mg PO DAILY [facility] Last Admin: 02/08/21 08:46 Dose: 6 mg Documented by: Enoxaparin Sodium (Enoxaparin 80 Mg/0.8 Ml Syringe) 80 mg SQ BID [facility] Last Admin: 02/08/21 12:03 Dose: 80 mg Documented by: Furosemide (Furosemide 10 Mg/Ml 4 Ml Vial) 40 mg IV DAILY [facility] Propofol 1,000 mg/ IV Solution 100 mls @ 0 mls/hr IV .Q0M CHERYL; Protocol Last Admin: 02/08/21 16:49 Dose: 30 mcg/kg/min, 13.32 mls/hr Documented by: Cisatracurium Besylate 200 mg/ (Sodium Chloride) 200 mls @ 8.709 mls/hr IV .[id number] [facility]; Protocol Last Admin: 02/08/21 08:47 Dose: 1.5 mcg/kg/min, 6.532 mls/hr Documented by: Norepinephrine Bitartrate 4 mg (/ Sodium Chloride) 254 mls @ 13.826 mls/hr IV .[id number] [facility]; Protocol Last Titration: 02/08/21 15:54 Dose: 0 mcg/kg/min, 0 mls/hr Documented by: Sodium Chloride (Saline 0.9%) 1,000 mls @ 20 mls/hr IV .Q24H [facility] Last Admin: 02/08/21 13:50 Dose: 20 mls/hr Documented by: Fentanyl Citrate 1,000 mcg/ (Sodium Chloride) 100 mls @ 7.4 mls/hr IV .[id number] [facility]; Protocol Last Admin: 02/08/21 08:46 Dose: 1 mcg/kg/hr, 7.4 mls/hr Documented by: Insulin Aspart (Insulin Aspart (Novolog) 100 Unit/Ml Vial) 0 unit SQ Q6H CHERYL; Protocol Last Admin: 02/08/21 12:00 Dose: 2 unit Documented by: Tamsulosin HCl (Tamsulosin 0.4 Mg Cap.Er.24h) 0.4 mg PO BID [facility] Last Admin: 02/08/21 08:46 Dose: 0.4 mg Documented by: Zinc Sulfate (Zinc Sulfate 220 Mg Cap) 220 mg PO DAILY [facility] Last Admin: 02/08/21 08:45 Dose: 220 mg Documented by: On examination: VITAL SIGNS: 97, 61, 30, 98/62, 96% on the ventilator GENERAL APPEARANCE: , sedated, intubated RESPIRATORY: Respiratory effort increased. PSYCHIATRY: Unable to assess, sedated Rest of the exam per pulmonary and nursing INVESTIGATIONS, reviewed in the clinical context: February 08: WBC 11.5 hemoglobin 8 platelets 450 potassium 4.7 BUN 63 creatinine 1.47 Doppler ultrasound [February 05] DVT in the left popliteal vein and right lower extremity superficial vein February 03: W BC 21.5 hemoglobin 8.8 platelets 267 ABG: PH 7.25 pCO2 34 pO2 93 potassium 4.6 creatinine 1.39 February 02: White count 18.4 hemoglobin 9. ABG: PH 7.5 pO2 58 creatinine 1.18. Chest x-ray: Worsening February 01: White count 16.7 hemoglobin 9.7 d-dimer greater than 34 BUN 45 creatinine 1.27 January 31: WBC 13.1 COVID 10.3 d-dimer greater than 34 potassium 4.5 creatinine 1.26 CRP 3.5 January 30: WBC 10.4 hemoglobin 9.8 platelets 145 potassium 4.5 creatinine 1.4. AST [address] angiogram for PE [January 30] new Pasia occlusive embolism segmental bronchus right lower lobe with segmental extension. Doppler ultrasound [January 29]: Superficial thrombosis in the right lesser saphenous vein. January 29: D-dimer greater than 34 potassium 4.4 BUN 67 creatinine 1.61 AST 174 ALT 73 January 28: WBC 10.2 hemoglobin 11.4 platelets 154 d-dimer greater than 34 sodium 136 potassium 4.9. 43 creatinine 1.29 January 27: WBC 11.8 hemoglobin 10.5 January 26: White count 11.8 hemoglobin 11.5 d-dimer 12.6 CRP 7.3 White count 5.9 hemoglobin 12.3 platelets 162 d-dimer 0.93 potassium 4.1 creatinine 0.86 CRP 4.4 Admission labs: Pro-calcitonin 0.04 Coronavirus [PCR]: Detected D-dimer 0.83 EKG tracing personally reviewed by me-sinus bradycardia. Rate 55 Chest x-ray: biLateral infiltrates Assessment and plan: -Bilateral COVID 19 pneumonitis: Not improving Dexamethasone. Subcu Lovenox. (declined Remdesivir. patient was taking ivermectin at home). Baricitinib started January 28 -Acute pulmonary embolism, along with DVT: Lovenox subcu -Septic shock IV levo fed -Acute hypoxic respiratory failure from COVID 19: Not improving Intubated February 02. On the ventilator -Essential hypertension: Currently blood pressure is running low -Chronic Crohn's disease Pentasa 1000 milligrams 3 times a day - nephrolithiasis Follow clinically -Acute kidney injury. Possibly ATN from COVID 19 causing infection and hypertension Follow nephrology -Paroxysmal atrial fibrillation with episodes of rapid ventricular rate Amiodarone -BPH Flomax 0.4 mg twice a day -COPD in a previous smoker Pulmicort -Chronic tinnitus with hearing impairment -CAD with bypass Aspirin, beta billy, Lipitor -Hyperlipidemia Lipitor 40 mg daily -Acute hepatitis: Improving hold Lipitor. Follow LFT -Full code IV norepinephrine, Nimbex, propofol, fentanyl. Baricitinib. Dexamethasone. Subcu Lovenox On the ventilator intubated. Prognosis guarded.
[2021-02-08 18:04] LABS: Glucose,Whole Blood 182 mg/dL (75-99)
--- NOTE | 2021-02-08 19:56 | CONS ---
CONSULTATION Mr. Alonso is a 75-year-old gentleman who was admitted to the hospital several days ago with complaints of shortness of breath and oxygen saturations that were low. Patient was diagnosed to have COVID pneumonia. He has been in the hospital since 01/23/2021. Patient has history of previous bypass surgery, mitral valve replacement, hypertension, hyperlipidemia, and also Crohn's disease and COPD. Patient had a prolonged stay in the hospital. Patient is intubated and mechanically ventilated. Chest x-ray continues to show bilateral infiltrates. Patient has been on propofol and also on norepinephrine drip and has been getting enteral feeding. We were asked to see the patient because the patient developed atrial fibrillation with rapid ventricular response. Patient was given IV amiodarone bolus and has been on drip. Patient converted back to sinus rhythm. We want to continue p.o. amiodarone about 600 mg daily for the next week and then cut back to 400 mg a day and then after a week can be cut back to 200 mg daily. As patient is being treated for COVID pneumonia, patient was not personally examined. The chart is reviewed and information is also gathered from nurses. His prognosis seems to be poor. His past medical history is significant for coronary artery disease with previous bypass surgery, mitral valve replacement, hypertension, hyperlipidemia, COPD and smoking history. His home medication prior to admission included prednisone 20 mg b.i.d., aspirin, Flomax, metoprolol, hydralazine, atorvastatin. The patient is NOT KNOWN TO HAVE ANY ALLERGIES. PHYSICAL EXAMINATION: This patient is not physically examined. The patient is intubated and sedated. Information is gathered from the consultants' notes. His heart rate is in the 60s. Blood pressure is about 102/60, respiration about 30, oxygen saturation about 96%. FINAL IMPRESSION: 1. COVID pneumonia. 2. Atrial fibrillation with rapid ventricular response. 3. Elevated transaminases. 4. Chronic obstructive pulmonary disease. 5. Coronary artery disease with a history of previous bypass surgery. 6. History of mitral valve repair. 7. History of Crohn's disease. 8. History of congestive heart failure. Continue p.o. amiodarone. Continue the rest of the management, including respiratory support. Prognosis is poor. MMODL / IJN: [id number] / [facility] [place]
[2021-02-09] MEDS: NOREPINEPHRINE 4 MG in SODIUM CHLORIDE 0.9% 250 ML IV SCH (00:29)
[2021-02-09] MEDS: ARTIFICIAL TEARS-HYPROMELLOSE DROPS 15 ML BTL BOTH EYES SCH ×6 (00:29→20:20)
[2021-02-09 00:35] LABS: Glucose,Whole Blood 127 mg/dL (75-99)
[2021-02-09] MEDS: INSULIN ASPART (NovoLOG) 100 UNIT/ML VIAL SQ SCH ×4 (00:39→18:07)
[2021-02-09 04:39] LABS: Basophils % (A) 0 %; Eosinophils % (A) 1 %; HCT 29.3 % (39.0-53.0); HGB 8.7 gm/dL (13.0-17.5); Hypochromasia Marked; Lymphocytes # (A) 0.2 k/uL (1.0-4.8); Lymphocytes % (A) 2 %; MCH 28.1 pg (25.0-35.0); MCHC 29.5 g/dL (31.0-37.0); MCV 95.1 fL (80.0-100.0); Mean Platelet Volume 8.9; Monocytes # (A) 0.3 k/uL (0-1.0); Monocytes % (A) 3 %; Neutrophils # (A) 8.9 k/uL (1.3-7.7); Neutrophils % (A) 93 %; Platelet Count 374 k/uL (150-450); RBC 3.08 m/uL (4.30-5.90); RDW 15.3 % (11.5-15.5); WBC 9.5 k/uL (3.8-10.6)
[2021-02-09 05:25] LABS: Albumin 2.5 g/dL (3.5-5.0); Calcium 8.5 mg/dL (8.4-10.2); Total Bilirubin 0.6 mg/dL (0.2-1.3); Total Protein 5.5 g/dL (6.3-8.2)
[2021-02-09 06:06] LABS: Glucose,Whole Blood 107 mg/dL (75-99)
[2021-02-09] MEDS: fentaNYL (PF). 1,000 MCG in SODIUM CHLORIDE 0.9% 80 ML IV SCH ×3 (07:06→21:29)
[2021-02-09] MEDS: ALBUTEROL HFA INHALER INHALATION SCH ×4 (08:06→20:33)
[2021-02-09 08:09] LABS: ABG Base Excess 20.8 mmol/L; ABG Oxygen Saturation 87.6 % (94-97); ABG PH 7.39 (7.35-7.45); ABG TCO2 48 mmol/L (19-24); Allen Test Performed? Yes
[2021-02-09 08:13] LABS: ABG PCO2 75 mmHg (35-45)
[2021-02-09 08:14] LABS: ABG HCO3 46 mmol/L (21-25); ABG PO2 56 mmHg (83-108)
--- NOTE | 2021-02-09 08:41 | XR ---
EXAMINATION TYPE: XR chest 1V portable DATE OF EXAM: 02/09/2021 COMPARISON: 02/08/2021 HISTORY: 75 years Male. STUDY INDICATION GIVEN: assess lungs . TECHNIQUE: Semiupright AP chest radiograph IMPRESSION: Bilateral interstitial and airspace opacities decreased in the interval. No pneumothorax or large eff usion. Cardiomediastinal silhouette normal in size. COPD/emphysema changes noted. Tip of endotracheal tube 3.5 cm above enid. Left central venous catheter tip at the cavoatrial junc tion stable. Enteric tube courses into the stomach, sidehole in the distal esophagus recommend advanc ing. Osseous structures are stable compared to prior.
[2021-02-09] MEDS: ENOXAPARIN 80 MG/0.8 ML SYRINGE SQ SCH ×2 (09:18→21:30)
[2021-02-09] MEDS: CYANOCOBALAMIN 500 MCG TAB PO SCH (09:18)
[2021-02-09] MEDS: CHLORHEXIDINE GLUCONATE 15 ML CUP MUCOUS MEM SCH ×2 (09:18→21:30)
[2021-02-09] MEDS: ASCORBIC ACID 500 MG TAB PO SCH (09:18)
[2021-02-09] MEDS: AMIODARONE 200 MG TAB PO SCH ×3 (09:19→21:30)
[2021-02-09] MEDS: TAMSULOSIN 0.4 MG CAP.ER.24H PO SCH ×2 (09:19→21:30)
[2021-02-09] MEDS: ZINC SULFATE 220 MG CAP PO SCH (09:19)
[2021-02-09] MEDS: dexAMETHasone 2 MG TAB PO SCH (09:19)
[2021-02-09] MEDS: CHOLECALCIFEROL 125 MCG (5000 IU) TABLET PO SCH (09:19)
[2021-02-09] MEDS: FUROSEMIDE 10 MG/ML 4 ML VIAL IV SCH (09:21)
--- NOTE | 2021-02-09 10:37 | P.PN ---
Subjective Progress Note Date: 02/09/21 Principal diagnosis: Acute hypoxic respiratory failure secondary to COVID-19 pneumonia This is a 75-year-old male patient who follows with Dr. Mauricio Keith is his primary care provider. He has a history of coronary artery disease with previous coronary artery bypass grafting, mitral valve replacement, hypertension, hyperlipidemia, chronic obstructive pulmonary disease, former smoker, Crohn's disease. On January 17 the patient started having symptoms of fever cough congestion weakness and was tested for COVID-19 on January 18. He found out his results on January 21 and was told to stay home and rest unless his symptoms worsened. He was given doxycycline and prednisone 20 mg twice a day. His brought him into the emergency room here today as his oxygen levels were dropping at home. Chest x-rays revealing patchy bilateral interstitial pneumonia with underlying COPD. White count 2.8. Hemoglobin 12.9. Platelets 149. Lymphocytes 0.2. D-dimer 0.83. Sodium 133. Potassium 4.7. Creatinine 1.06. Glucose 154. AST 122. ALT 75. LDH 1082. C-reactive protein 6.4. Chronic virus by PCR positive. The patient is not vaccinated. He is seen today in the emergency room. Awake and alert in no acute distress. Sitting up on a stretcher. He is 85% O2 saturation on room air. 93% on 2 L per nasal cannula. Afebrile. Hemodynamically stable. He's been initiated on Lovenox and vitamin supplements. He will be started on Decadron. We discussed with him the possibility for Remdesivir which he is reluctant to receive. His who is sitting next to him is also having symptoms and she plans to go get tested today. The patient is seen today 01/24/2021 in follow-up on the observation unit. He is currently sitting up in bed. Awake and alert in no acute distress. He is feeling quite a bit better. Feeling stronger today. He did decline Remdesivir. He has been maintained on Lovenox, Decadron, vitamin supplements. He is currently maintaining O2 saturation in the low 90s on 3 L/m per nasal cannula. He's been afebrile. Hemodynamically stable. Chest x-ray continues to show increased bilateral infiltrates. White count 5.9. Hemoglobin 12.3. D-dimer 0.93. Sodium 134. Potassium 4.1. Creatinine 0.86. Glucose 158. AST 87. ALT 62. LDH 81. C-reactive protein 4.4. On 01/25/2021 patient seen in follow-up on medical surgical floor. He is awake and alert, in no acute distress, breathing comfortably, although still has a persistent cough, does have exertional dyspnea. He is currently on 4 L of oxygen and his pulse ox is borderline between 87-92%. No fever or chills, blood pressure is been stable, patient has been ambulate into the bathroom. Today's chest x-ray shows progressive changes in the lungs with increasing bilateral i nfiltrates. Patient remains on Decadron 6 mg daily, prophylactic Lovenox, he is on inhaled [place] dilators, he is on COVID-19 vitamins. His labs from yesterday showed a d-dimer of 0.93, electrolytes and renal profile were fairly unremarkable, his AST and ALT were improving and were down to 87 and 62 respectively, his inflammatory markers showed a trend for improvement with LDH at 881, and CRP of 4.4. Reevaluated today on 01/26/2021, patient remains on the regular medical floor, his condition got a bit worse yesterday, he is now on 15 L nasal cannula high flow, and his O2 saturation is ranging between 90 up to 96%. However the patient does not seem to be in any distress, he is afebrile with a temp of 97 9 he had a T-max of 100.4 last night. Vital signs are stable. Blood pressure 113/43. Previous count is 11.8 hemoglobin is 11.5, d-dimer went up to 12.66, however workup for pulmonary embolism and venous Doppler came back negative yesterday last night. Patient is on the COVID-19 cocktail, he refused taking remdesivir when he qualified, he is on Lovenox at 40 mg subcu daily, he is also on vitamin D, vitamin C, zinc, and he is on Decadron 6 mg by mouth daily. Evaluated today on 02/07/2021, patient remains in the ICU, intubated and mechanically ventilated. He is presently on assist control rate of 30 tidal volume 420 FiO2 50% PEEP of 14. ABG showed a pO2 of 60 pCO2 of 71 pH of 7.39. A shunt is on propofol at 14 Nimbex at 1.5, he is also on Dilaudid when necessary, IV fluid at KVO. His renal profile showed a BUN of 57 creatinine 1.8. While I was evaluating the patient, shortly after the patient developed an episode of atrial fibrillation with RVR, recommended amiodarone to be started as per protocol, and starting amiodarone drip on this patient. Patient is not re ashleigh for any weaning trials at this point specially with his new onset atrial fibrillation with RVR. His electrolytes are normal BUN is 57 creatinine 1.18. She count is 12.4 hemoglobin is 8.1. X-ray continues to show diffuse bilateral infiltrates. Not much of a change or improvement noted. Patient remains on the COVID-19 cocktail. Remains on Decadron 6 mg IV push daily. Lovenox was increased to 80 mg subcu twice a day. Patient is also on Baricitinib. Amiodarone was added today. Reevaluated today on 02/08/21, patient remains in the ICU intubated and mechanically ventilated. He is now on assist control rate of 30 tidal volume 420 FiO2 60% and I cut it down to 50% PEEP is at 14. ABG today showed a pO2 of 60 pCO2 71 pH of 7.39. His electrolytes are normal BUN is 63 creatinine 1.47 WBC count is 11.5 hemoglobin is 8.0. Chest x-ray is not showing much of an improvement, continues to have bilateral infiltrates. Patient is on multiple drips including fentanyl at 1, propofol at 3 0 mcg/kg/m, Nimbex at 1.5 mcg/kg/m amiodarone 0.5 mg/m. Patient is on norepinephrine at 0.03 mcg/kg/m is also on enteral feeding/utilizing Nepro at 32 mL per hour and sputum cultures are normal nondiagnostic. Patient is now on oral amiodarone at 20 mg 3 times a day, and IV amiodarone has been discontinued. Patient is on ascorbic acid, I have discontinued his colazal, and it may confuse the picture because it is known to cause pneumonitis/drug-induced pneumonitis. I kept the patient on Baricitinib, remains on Lovenox 80 mg subcu twice a day specially with his atrial fibrillation and RVR although today he went back to normal sinus rhythm. Patient remains on the COVID-19 cocktail. At this point I don't see any room to wean or extubated the patient, he will remain intubated mechanically ventilated and sedated. I would also keep him paralyzed since the patient is requiring relatively high PEEP, and chest x-ray is not showing much improvement he still requiring relatively high FiO2 it was 60% and I cut it down today to 50% Reevaluated today on 02/09/2021, patient remains in the ICU intubated and mechanically ventilated. He is now on assist control rate of 30 tidal volume 420 FiO2 50% PEEP is 14. ABG is marginal with a pO2 of 56 pCO2 of 75 pH of 7.39. Remains on propofol at 30 mcg/kg/m fentanyl 20 mcg/kg/h Nimbex at 1.5 mcg/kg/m he is off norepinephrine presently he is on enteral feeding and he is on IV fluid at KVO. Chest x-ray continues to show bilateral infiltrates not much of a change in the last 24 hours. Labs including basic metabolic profile and CBC were reviewed, seem to be relatively unremarkable. Today I suggested that we stop Nimbex and try to maintain the patient mostly on propofol and fentanyl if possible, and hopefully the patient couldn't tolerate coming off paralytics. In the meantime the patient remains on the treatment as noted above. Objective - Vital Signs Vital signs: Vital Signs Temp 98.1 F 02/09/21 04:00 Pulse 84 02/09/21 08:30 Resp 30 H 02/09/21 08:30 BP 125/65 02/09/21 08:30 Pulse Ox 91 L 02/09/21 08:30 Intake & Output 02/08/21 02/09/21 02/09/21 18:59 06:59 18:59 Intake Total 1455.591 832.973 431.105 Output Total 1875 765 185 Balance -419.409 67.973 246.105 Weight 73.4 kg 73.6 kg Intake: IV 220 240 60 Sodium Chloride 0.9% 1, 220 240 60 000 ml @ 20 mls/hr IV . Q24H [facility] Rx#:[id number] Intake, IV Titration 665.591 142.973 251.105 Amount Amiodarone 450 mg In 250 Dextrose 5% in Water 250 ml @ 0.5 MG/MIN 16.667 mls/hr IV .Q15H [facility] Rx#: [id number] Cisatracurium 200 mg In 156.115 160.578 Sodium Chloride 0.9% 180 ml @ 2 MCG/KG/MIN 8.709 mls/hr IV .[id number] [facility] Rx #:[id number] Norepinephrine 4 mg In 78.526 Sodium Chloride 0.9% 250 ml @ 0.05 MCG/KG/MIN 13. 826 mls/hr IV .[id number] [facility] Rx#:[id number] Sodium Chloride 0.9% 1, 20 000 ml @ 20 mls/hr IV . Q24H [facility] Rx#:[id number] fentaNYL (PF). 1,000 mcg 160.95 90.527 In Sodium Chloride 0.9% 80 ml @ 1 MCG/KG/HR 7.4 mls/hr IV .[id number] [facility] Rx #:[id number] propofoL 1,000 mg In 142.973 Empty Bag 1 bag @ Titrate IV .Q0M [facility] Rx#: [id number] Tube Feeding 380 360 90 Other 190 90 30 Output: Urine 1875 765 185 Other: Voiding Method Indwelling Catheter Indwelling Catheter ABP, PAP, CO, CI - Last Documented Arterial Blood Pressure 114/84 - Exam Physical Exam: Revealed a 75-year-old white male , intubated and mechanically ventilated. Head: Atraumatic normocephalic. HEENT:[Neck is supple.] [No neck masses.] [No thyromegaly.] [No JVD.] Chest: Crackles at the bases bilaterally. No rhonchi and no wheezes Cardiac Exam: [Normal S1 and S2, no S3 gallop, no murmur.] Abdomen: [Soft, nontender, no megaly, no rebound, no guarding, normal bowel sounds.] Extremities: [No clubbing, no edema, no cyanosis.] Neurological Exam: Not assessed, patient is sedated. And he is paralyzed Psychiatric: Cannot assess patient is sedated and paralyzed. Skin: No rashes. - Labs CBC & Chem 7: 02/09/21 04:20 02/09/21 04:19 Labs: Abnormal Lab Results - Last 24 Hours (Table) 02/08/21 02/08/21 02/09/21 Range/Units 11:54 18:03 00:34 RBC (4.30-5.90) m/uL Hgb (13.0-17.5) gm/dL Hct (39.0-53.0) % MCHC (31.0-37.0) g/dL Neutrophils # (1.3-7.7) k/uL Lymphocytes # (1.0-4.8) k/uL ABG pCO2 (35-45) mmHg ABG pO2 (83-108) mmHg ABG HCO3 (21-25) mmol/L ABG Total CO2 (19-24) mmol/L ABG O2 Saturation (94-97) % Chloride (98-107) mmol/L Carbon Dioxide (22-30) mmol/L BUN (9-20) mg/dL Glucose (74-99) mg/dL POC Glucose (mg/dL) 143 H 182 H 127 H (75-99) mg/dL AST (17-59) U/L Total Protein (6.3-8.2) g/dL Albumin (3.5-5.0) g/dL 02/09/21 02/09/21 02/09/21 Range/Units 04:19 04:20 06:05 RBC 3.08 L (4.30-5.90) m/uL Hgb 8.7 L (13.0-17.5) gm/dL Hct 29.3 L (39.0-53.0) % MCHC 29.5 L (31.0-37.0) g/dL Neutrophils # 8.9 H (1.3-7.7) k/uL Lymphocytes # 0.2 L (1.0-4.8) k/uL ABG pCO2 (35-45) mmHg ABG pO2 (83-108) mmHg ABG HCO3 (21-25) mmol/L ABG Total CO2 (19-24) mmol/L ABG O2 Saturation (94-97) % Chloride 95 L (98-107) mmol/L Carbon Dioxide 39 H (22-30) mmol/L BUN 75 H (9-20) mg/dL Glucose 110 H (74-99) mg/dL POC Glucose (mg/dL) 107 H (75-99) mg/dL AST 149 H (17-59) U/L Total Protein 5.5 L (6.3-8.2) g/dL Albumin 2.5 L (3.5-5.0) g/dL 12/25/21 Range/Units 07:55 RBC (4.30-5.90) m/uL Hgb (13.0-17.5) gm/dL Hct (39.0-53.0) % MCHC (31.0-37.0) g/dL Neutrophils # (1.3-7.7) k/uL Lymphocytes # (1.0-4.8) k/uL ABG pCO2 75 H* (35-45) mmHg ABG pO2 56 L* (83-108) mmHg ABG HCO3 46 H* (21-25) mmol/L ABG Total CO2 48 H (19-24) mmol/L ABG O2 Saturation 87.6 L (94-97) % Chloride (98-107) mmol/L Carbon Dioxide (22-30) mmol/L BUN (9-20) mg/dL Glucose (74-99) mg/dL POC Glucose (mg/dL) (75-99) mg/dL AST (17-59) U/L Total Protein (6.3-8.2) g/dL Albumin (3.5-5.0) g/dL Assessment and Plan Assessment: #1. Acute hypoxic respiratory failure secondary to COVID-19 pneumonia, not vaccinated. Symptoms started on 01/17, patient took ivermectin on outpatient basis, refused Remdesivir currently on Decadron is also on prophylactic anticoagulation, he is on COVID-19 cocktail. Received Baricitinib, on 1217, patient was transferred to the ICU and he was intubated. Remains intubated and mechanically ventilated since 02/02. He is on assist control mode of mechanical ventilation. Sedated and paralyzed. Patient is now on a combination of Bar icitinib and Decadron. He was found to have bilateral lower extremity DVT. Plan today is to discontinue Nimbex and see if tolerates. #2. Elevated inflammatory markers related to the above, improving. #3. Elevated transaminases, improving #4. History of COPD with diffuse centrilobar emphysema #5. Former smoker #6. Coronary artery disease with previous coronary artery bypass grafting 4 in 2018 #7. Mitral valve repair #8. Crohn's disease #9. Hypertension #10. History of systolic CHF #11 new-onset atrial fibrillation on 02/07/21, started patient on amiodarone. Transition today from IV amiodarone to oral amiodarone. Being followed by cardiology. Recommendation: Discontinue Nimbex and keep the patient on propofol and fentanyl. Continue ventilatory support. Patient is now on assist control rate of 30 tidal volume 420 FiO2 50% PEEP of 14. Changes made in the vent settings today. Continue COVID-19 cocktail as above. Continue amiodarone. Continue enteral feeding. Monitor renal profile on a daily basis. Deep Lasix at 40 mg IV push daily Continue GI prophylaxis. Nephrology is evaluating his renal status. Continue to monitor inflammatory markers. CODE STATUS is now DO NOT RESUSCITATE. We will continue to follow. Critical care time is over 30 minutes Time with Patient: Greater than 30
--- NOTE | 2021-02-09 11:23 | P.PN ---
Subjective Progress Note Date: 02/09/21 This 75-year-old gentleman is intubated and mechanically ventilated. His heart rate is controlled and seemed to be maintaining sinus rhythm. He is on by mouth amiodarone. Rest of the clinical status hasn't shown any significant improvement. He is being followed by bell cleaner. From Cardec standpoint we'll continue amiodarone. We'll be seeing him as needed Objective - Vital Signs Vital signs: Vital Signs Temp 98.1 F 02/09/21 04:00 Pulse 75 02/09/21 10:00 Resp 31 H 02/09/21 10:00 BP 97/47 02/09/21 10:00 Pulse Ox 89 L 02/09/21 10:00 Intake & Output 02/08/21 02/09/21 02/09/21 18:59 06:59 18:59 Intake Total 1455.591 832.973 481.105 Output Total 1875 765 335 Balance -419.409 67.973 146.105 Weight 73.4 kg 73.6 kg Intake: IV 220 240 80 Sodium Chloride 0.9% 1, 220 240 80 000 ml @ 20 mls/hr IV . Q24H [facility] Rx#:[id number] Intake, IV Titration 665.591 142.973 251.105 Amount Amiodarone 450 mg In 250 Dextrose 5% in Water 250 ml @ 0.5 MG/MIN 16.667 mls/hr IV .Q15H [facility] Rx#: [id number] Cisatracurium 200 mg In 156.115 160.578 Sodium Chloride 0.9% 180 ml @ 2 MCG/KG/MIN 8.709 mls/hr IV .[id number] [facility] Rx #:[id number] Norepinephrine 4 mg In 78.526 Sodium Chloride 0.9% 250 ml @ 0.05 MCG/KG/MIN 13. 826 mls/hr IV .[id number] [facility] Rx#:[id number] Sodium Chloride 0.9% 1, 20 000 ml @ 20 mls/hr IV . Q24H [facility] Rx#:[id number] fentaNYL (PF). 1,000 mcg 160.95 90.527 In Sodium Chloride 0.9% 80 ml @ 1 MCG/KG/HR 7.4 mls/hr IV .[id number] [facility] Rx #:[id number] propofoL 1,000 mg In 142.973 Empty Bag 1 bag @ Titrate IV .Q0M [facility] Rx#: [id number] Tube Feeding 380 360 120 Other 190 90 30 Output: Urine 1875 765 335 Other: Voiding Method Indwelling Catheter Indwelling Catheter ABP, PAP, CO, CI - Last Documented Arterial Blood Pressure 114/84 - Exam This patient has not personally examined. Information is calculated from the nurses and also from the chart - Labs CBC & Chem 7: 02/09/21 04:20 02/09/21 04:19 Labs: Abnormal Lab Results - Last 24 Hours (Table) 02/08/21 02/08/21 02/09/21 Range/Units 11:54 18:03 00:34 RBC (4.30-5.90) m/uL Hgb (13.0-17.5) gm/dL Hct (39.0-53.0) % MCHC (31.0-37.0) g/dL Neutrophils # (1.3-7.7) k/uL Lymphocytes # (1.0-4.8) k/uL ABG pCO2 (35-45) mmHg ABG pO2 (83-108) mmHg ABG HCO3 (21-25) mmol/L ABG Total CO2 (19-24) mmol/L ABG O2 Saturation (94-97) % Chloride (98-107) mmol/L Carbon Dioxide (22-30) mmol/L BUN (9-20) mg/dL Glucose (74-99) mg/dL POC Glucose (mg/dL) 143 H 182 H 127 H (75-99) mg/dL AST (17-59) U/L Total Protein (6.3-8.2) g/dL Albumin (3.5-5.0) g/dL 02/09/21 02/09/21 02/09/21 Range/Units 04:19 04:20 06:05 RBC 3.08 L (4.30-5.90) m/uL Hgb 8.7 L (13.0-17.5) gm/dL Hct 29.3 L (39.0-53.0) % MCHC 29.5 L (31.0-37.0) g/dL Neutrophils # 8.9 H (1.3-7.7) k/uL Lymphocytes # 0.2 L (1.0-4.8) k/uL ABG pCO2 (35-45) mmHg ABG pO2 (83-108) mmHg ABG HCO3 (21-25) mmol/L ABG Total CO2 (19-24) mmol/L ABG O2 Saturation (94-97) % Chloride 95 L (98-107) mmol/L Carbon Dioxide 39 H (22-30) mmol/L BUN 75 H (9-20) mg/dL Glucose 110 H (74-99) mg/dL POC Glucose (mg/dL) 107 H (75-99) mg/dL AST 149 H (17-59) U/L Total Protein 5.5 L (6.3-8.2) g/dL Albumin 2.5 L (3.5-5.0) g/dL 02/09/21 Range/Units 07:55 RBC (4.30-5.90) m/uL Hgb (13.0-17.5) gm/dL Hct (39.0-53.0) % MCHC (31.0-37.0) g/dL Neutrophils # (1.3-7.7) k/uL Lymphocytes # (1.0-4.8) k/uL ABG pCO2 75 H* (35-45) mmHg ABG pO2 56 L* (83-108) mmHg ABG HCO3 46 H* (21-25) mmol/L ABG Total CO2 48 H (19-24) mmol/L ABG O2 Saturation 87.6 L (94-97) % Chloride (98-107) mmol/L Carbon Dioxide (22-30) mmol/L BUN (9-20) mg/dL Glucose (74-99) mg/dL POC Glucose (mg/dL) (75-99) mg/dL AST (17-59) U/L Total Protein (6.3-8.2) g/dL Albumin (3.5-5.0) g/dL Assessment and Plan (1) Hypoxia Current Visit: Yes Status: Acute Code(s): R09.02 - HYPOXEMIA SNOMED Code(s): 987715134 (2) Pneumonia due to COVID-19 virus Current Visit: Yes Status: Acute Code(s): U07.1 - COVID-19; J12.82 - PNEUMONIA DUE TO CORONAVIRUS DISEASE 2018 SNOMED Code(s): 041993298358455814 (3) Atrial fibrillation Current Visit: No Status: Acute Code(s): I48.91 - UNSPECIFIED ATRIAL FIBRILLATION SNOMED Code(s): 12751310 (4) CAD (coronary artery disease) Current Visit: No Status: Acute Code(s): I25.10 - ATHSCL HEART DISEASE OF [place] CORONARY ARTERY W/O ANG PCTRS SNOMED Code(s): 77367600 (5) Congestive heart failure Current Visit: No Status: Acute Code(s): I50.9 - HEART FAILURE, UNSPECIFIED SNOMED Code(s): 54743379 Plan: continue current treatment. Tapere the dose of the amiodarone as prescribed. Prognosis is guarded. We'll follow as needed
[2021-02-09 12:13] LABS: Glucose,Whole Blood 144 mg/dL (75-99)
[2021-02-09] MEDS: SODIUM CHLORIDE 0.9% 1,000 ML IV SCH (13:18)
--- NOTE | 2021-02-09 13:27 | PN ---
PROGRESS NOTE Patient is seen for followup for acute kidney injury. He currently remains on the vent. Renal function has improved. Creatinine down to 1.0. Lasix was decreased yesterday. Urine output at 60-75 cc an hour. Vital signs are reviewed. Blood pressure this morning 97/47, heart rate 75 per minute. Patient is afebrile. He remains on the vent. FiO2 is at 50%. The patient is on fentanyl and propofol. Amiodarone is switched to p.o. Examination lower extremities shows no significant edema. PEDIATRIC NEUROLOGIST exam cannot be performed. Lungs and heart are not examined due to COVID pneumonia. LABS: Reviewed. Sodium of 140, potassium 5.0, chloride 95, BUN 75, serum creatinine 1.0. ASSESSMENT: 1. Acute kidney injury, ATN, nonoliguric, currently improved. 2. Metabolic alkalosis associated with respiratory acidosis and secondary to diuresis currently on decreased dose of Lasix. 3. Volume overload, continue with the current dose of Lasix. 4. Acute hypoxic respiratory failure secondary to COVID pneumonia. PLAN: Continue with the current dose of Lasix. Repeat labs in a.m. MMODL / IJN: [id number] /
--- NOTE | 2021-02-09 14:07 | P.PN ---
Progress Note - Text Progress Note Date: 02/09/21 Hospital course: 74-year-old patient who follows with Dr. Mauricio Keith. Tonic stable medical conditions include hypertension, Crohn's disease, nephrolithiasis, BPH, hypertension, tinnitus, COPD, CAD with bypass. EF of 20-25%. Presented with shortness of breath. Diagnosed with COVID 19 on January 18 symptoms starting 1 day before. He was found to be hypoxic at home. Upon arrival he was 85%. Patient declined treatment with Remdesivir. Patient had been taking ivermectin as outpatient. She requested this to be continued. This was declined by the admitting team as this was not approved treatment. Patient not vaccinated against COVID. She did with subcu Lovenox and dexamethasone. January 24: Patient feeling better. On 3 L nasal cannula. Oral intake fair. Up in a bed. Slight cough. January 25: Sitting up in a recliner. Tired. Has some chest tightness. 92% on 4 L. Oral intake good. January 26: Bit more short of breath. Oxygen requirement: Up to 15 L. Had low-grade fever. Eating about 50-75%. Tired. Up in a chair. January 27: Short of breath. Sitting at the edge of the bed. 15 L nasal cannula. Decreased appetite. January 28: Laying in bed. Tired. Short of breath. On 15 L nonrebreather. Oral intake fair. Started on Baricitinib by pulmonary January 29: Patient is become more short of breath. Placed on BiPAP. Decreased oral intake. Tired. On Baricitinib, dexamethasone. January 30: Sitting up in a chair. Using BiPAP. Short of breath. Decreased oral intake. On Baricitinib) dexamethasone. Acute PE on CT chest. Started on eliquis January 31: Sitting at the edge of the bed. BiPAP. Short of breath. Tired. On eliquis, on Baricitinib, dexamethasone. February 01: Laying in bed. Short of breath. BiPAP. Tired. On Baricitinib, dexamethasone, eliquis. Eating reasonably well. February 02: Rather tired short of breath BiPAP 100%. On dexamethasone, eliquis February 03: ICU: Intubated yesterday. Prone position. Ventilator FiO2 70 PEEP of 12. Drips included propofol and Nimbex. February 08: ICU: Ventilator FiO2 52 PEEP of 14. 2 feeding at 30 mL an hour. Went into an episode of rapid A. fib last night. Given IV amiodarone. Current drips include norepinephrine, Nimbex, propofol, fentanyl February 09: ICU: Ventilator: FiO2 40 and a PEEP of 14. 2 feeding at 30 mL an hour. Drips include fentanyl, propofol. Atrial fibrillation controlled Review of systems: Patient sedated Active Medications Acetaminophen (Acetaminophen Tab 325 Mg Tab) 650 mg PO Q6HR PRN PRN Reason: Fever and/ or Pain Last Admin: 02/02/21 06:07 Dose: 650 mg Documented by: Albuterol Sulfate (Albuterol Hfa Inhaler) 2 puff INHALATION RT-QID [facility] Last Admin: 02/09/21 12:12 Dose: 2 puff Documented by: Albuterol Sulfate (Albuterol Hfa Inhaler) 4 puff INHALATION RT-QID PRN PRN Reason: Shortness Of Breath Or Wheezing Amiodarone HCl (Amiodarone 200 Mg Tab) 200 mg PO TID [facility] Stop: 02/15/21 11:16 Last Admin: 02/09/21 09:19 Dose: 200 mg Documented by: Amiodarone HCl (Amiodarone 200 Mg Tab) 200 mg PO BID [facility] Artificial Tears (Artificial Tears-Hypromellose Drops 15 Ml Btl) 2 drops BOTH EYES Q4HR [facility] Last Admin: 02/09/21 09:17 Dose: 2 drops Documented by: Ascorbic Acid (Ascorbic Acid 500 Mg Tab) 2,000 mg PO DAILY [facility] Last Admin: 02/09/21 09:18 Dose: 2,000 mg Documented by: Chlorhexidine Gluconate (Chlorhexidine Gluconate 15 Ml Cup) 15 ml MUCOUS MEM BID [facility] Last Admin: 02/09/21 09:18 Dose: 15 ml Documented by: Cholecalciferol (Cholecalciferol 125 Mcg (5000 Iu) Tablet) 125 mcg PO DAILY [facility] Last Admin: 02/09/21 09:19 Dose: 125 mcg Documented by: Cyanocobalamin (Cyanocobalamin 500 Mcg Tab) 4,000 mcg PO DAILY [facility] Last Admin: 02/09/21 09:18 Dose: 4,000 mcg Documented by: Dexamethasone (Dexamethasone 2 Mg Tab) 6 mg PO DAILY [facility] Last Admin: 02/09/21 09:19 Dose: 6 mg Documented by: Enoxaparin Sodium (Enoxaparin 80 Mg/0.8 Ml Syringe) 80 mg SQ BID [facility] Last Admin: 02/09/21 09:18 Dose: 80 mg Documented by: Furosemide (Furosemide 10 Mg/Ml 4 Ml Vial) 40 mg IV DAILY [facility] Last Admin: 02/09/21 09:21 Dose: 40 mg Documented by: Propofol 1,000 mg/ IV Solution 100 mls @ 0 mls/hr IV .Q0M [facility]; Protocol Last Admin: 02/09/21 03:36 Dose: 30 mcg/kg/min, 13.212 mls/hr Documented by: Cisatracurium Besylate 200 mg/ (Sodium Chloride) 200 mls @ 8.709 mls/hr IV .[id number] [facility]; Protocol Last Titration: 02/09/21 09:22 Dose: 0 mcg/kg/min, 0 mls/hr Documented by: Norepinephrine Bitartrate 4 mg (/ Sodium Chloride) 254 mls @ 13.826 mls/hr IV .[id number] [facility]; Protocol Last Admin: 02/09/21 00:29 Dose: Not Given Documented by: Sodium Chloride (Saline 0.9%) 1,000 mls @ 20 mls/hr IV .Q24H [facility] Last Admin: 02/08/21 13:50 Dose: 20 mls/hr Documented by: Fentanyl Citrate 1,000 mcg/ (Sodium Chloride) 100 mls @ 7.4 mls/hr IV .[id number] [facility]; Protocol Last Admin: 02/09/21 07:06 Dose: 1 mcg/kg/hr, 7.4 mls/hr Documented by: Insulin Aspart (Insulin Aspart (Novolog) 100 Unit/Ml Vial) 0 unit SQ Q6H [facility]; Protocol Last Admin: 02/09/21 06:44 Dose: Not Given Documented by: Tamsulosin HCl (Tamsulosin 0.4 Mg Cap.Er.24h) 0.4 mg PO BID [facility] Last Admin: 02/09/21 09:19 Dose: 0.4 mg Documented by: Zinc Sulfate (Zinc Sulfate 220 Mg Cap) 220 mg PO DAILY [facility] Last Admin: 02/09/21 09:19 Dose: 220 mg Documented by: On examination: VITAL SIGNS: 75, 31, 97/47, 89% on the ventilator GENERAL APPEARANCE: , sedated, intubated RESPIRATORY: Respiratory effort increased. PSYCHIATRY: Unable to assess, sedated Rest of the exam per pulmonary and nursing INVESTIGATIONS, reviewed in the clinical context: February 09: White count 9.5 hemoglobin 8.7 platelets 374 ABG: PCO2 35 pO2 56 potassium 5 creatinine 1.07. Chest x-ray: Bilateral infiltrates February 08: WBC 11.5 hemoglobin 8 platelets 450 potassium 4.7 BUN 63 creatinine 1.47 Doppler ultrasound [February 05] DVT in the left popliteal vein and right lower extremity superficial vein February 03: W BC 21.5 hemoglobin 8.8 platelets 267 ABG: PH 7.25 pCO2 34 pO2 93 potassium 4.6 creatinine 1.39 February 02: White count 18.4 hemoglobin 9. ABG: PH 7.5 pO2 58 creatinine 1.18. Chest x-ray: Worsening February 01: White count 16.7 hemoglobin 9.7 d-dimer greater than 34 BUN 45 creatinine 1.27 January 31: WBC 13.1 COVID 10.3 d-dimer greater than 34 potassium 4.5 creatinine 1.26 CRP 3.5 January 30: WBC 10.4 hemoglobin 9.8 platelets 145 potassium 4.5 creatinine 1.4. AST [address] angiogram for PE [January 30] new Pasia occlusive embolism segmental bronchus right lower lobe with segmental extension. Doppler ultrasound [January 29]: Superficial thrombosis in the right lesser saphenous vein. January 29: D-dimer greater than 34 potassium 4.4 BUN 67 creatinine 1.61 AST 174 ALT 73 January 28: WBC 10.2 hemoglobin 11.4 platelets 154 d-dimer greater than 34 sodium 136 potassium 4.9. 43 creatinine 1.29 January 27: WBC 11.8 hemoglobin 10.5 January 26: White count 11.8 hemoglobin 11.5 d-dimer 12.6 CRP 7.3 White count 5.9 hemoglobin 12.3 platelets 162 d-dimer 0.93 potassium 4.1 creatinine 0.86 CRP 4.4 Admission labs: Pro-calcitonin 0.04 Coronavirus [PCR]: Detected D-dimer 0.83 EKG tracing personally reviewed by me-sinus bradycardia. Rate 55 Chest x-ray: biLateral infiltrates Assessment and plan: -Bilateral COVID 19 pneumonitis: Not improving Dexamethasone. Subcu Lovenox. (declined Remdesivir. patient was taking ivermectin at home). Baricitinib started January 28 -Acute pulmonary embolism, along with DVT: Lovenox subcu -Septic shock:better Received IV levo fed -Acute hypoxic respiratory failure from COVID 19: Not improving Intubated February 02. On the ventilator -Essential hypertension: Currently blood pressure is running low -Chronic Crohn's disease Pentasa 1000 milligrams 3 times a day - nephrolithiasis Follow clinically -Acute kidney injury. Possibly ATN from COVID 19 causing infection and hypertension Follow nephrology -Paroxysmal atrial fibrillation with episodes of rapid ventricular rate Amiodarone -BPH Flomax 0.4 mg twice a day -COPD in a previous smoker Pulmicort -Chronic tinnitus with hearing impairment -CAD with bypass Aspirin, beta billy, Lipitor -Hyperlipidemia Lipitor 40 mg daily -Acute hepatitis: Improving hold Lipitor. Follow LFT -Full code , propofol, fentanyl. Dexamethasone. Subcu Lovenox On the ventilator intubated. Prognosis guarded.
[2021-02-09] MEDS: CISATRACURIUM 200 MG in SODIUM CHLORIDE 0.9% 180 ML IV SCH (16:18)
[2021-02-09] MEDS: BARICITINIB 2 MG TABLET PO SCH (16:24)
[2021-02-09 17:51] LABS: Glucose,Whole Blood 169 mg/dL (75-99)
[2021-02-10 00:01] LABS: Glucose,Whole Blood 104 mg/dL (75-99)
[2021-02-10] MEDS: INSULIN ASPART (NovoLOG) 100 UNIT/ML VIAL SQ SCH ×4 (00:01→17:38)
[2021-02-10] MEDS: ARTIFICIAL TEARS-HYPROMELLOSE DROPS 15 ML BTL BOTH EYES SCH ×6 (00:01→20:44)
[2021-02-10 05:05] LABS: ABG Base Excess 21.1 mmol/L; ABG Oxygen Saturation 92.3 % (94-97); ABG PCO2 66 mmHg (35-45); ABG PH 7.44 (7.35-7.45); ABG PO2 64 mmHg (83-108); ABG TCO2 47 mmol/L (19-24); Allen Test Performed? Yes
[2021-02-10 05:08] LABS: ABG HCO3 45 mmol/L (21-25)
[2021-02-10 05:39] LABS: Glucose,Whole Blood 106 mg/dL (75-99)
[2021-02-10] MEDS: ALBUTEROL HFA INHALER INHALATION SCH ×4 (07:39→19:32)
[2021-02-10 07:46] LABS: Anisocytosis Slight; Basophils % (A) 0 %; Eosinophils # (A) 0.2 k/uL (0-0.7); Eosinophils % (A) 2 %; HCT 22.2 % (39.0-53.0); Hypochromasia Marked; Lymphocytes # (A) 0.2 k/uL (1.0-4.8); Lymphocytes % (A) 2 %; MCH 28.6 pg (25.0-35.0); MCHC 30.1 g/dL (31.0-37.0); MCV 95.2 fL (80.0-100.0); Mean Platelet Volume 8.3; Monocytes # (A) 0.3 k/uL (0-1.0); Monocytes % (A) 3 %; Neutrophils # (A) 9.8 k/uL (1.3-7.7); Neutrophils % (A) 92 %; Platelet Count 474 k/uL (150-450); RBC 2.33 m/uL (4.30-5.90); RDW 16.3 % (11.5-15.5); WBC 10.6 k/uL (3.8-10.6)
[2021-02-10 08:00] LABS: Calcium 8.4 mg/dL (8.4-10.2); Potassium 4.4 mmol/L (3.5-5.1)
[2021-02-10 08:02] LABS: HGB 6.7 gm/dL (13.0-17.5)
--- NOTE | 2021-02-10 10:21 | P.PN ---
Subjective Progress Note Date: 02/10/21 Principal diagnosis: Acute hypoxic respiratory failure secondary to COVID-19 pneumonia This is a 75-year-old male patient who follows with Dr. Mauricio Keith is his primary care provider. He has a history of coronary artery disease with previous coronary artery bypass grafting, mitral valve replacement, hypertension, hyperlipidemia, chronic obstructive pulmonary disease, former smoker, Crohn's disease. On January 17 the patient started having symptoms of fever cough congestion weakness and was tested for COVID-19 on January 18. He found out his results on January 21 and was told to stay home and rest unless his symptoms worsened. He was given doxycycline and prednisone 20 mg twice a day. His brought him into the emergency room here today as his oxygen levels were dropping at home. Chest x-rays revealing patchy bilateral interstitial pneumonia with underlying COPD. White count 2.8. Hemoglobin 12.9. Platelets 149. Lymphocytes 0.2. D-dimer 0.83. Sodium 133. Potassium 4.7. Creatinine 1.06. Glucose 154. AST 122. ALT 75. LDH 1082. C-reactive protein 6.4. Chronic virus by PCR positive. The patient is not vaccinated. He is seen today in the emergency room. Awake and alert in no acute distress. Sitting up on a stretcher. He is 85% O2 saturation on room air. 93% on 2 L per nasal cannula. Afebrile. Hemodynamically stable. He's been initiated on Lovenox and vitamin supplements. He will be started on Decadron. We discussed with him the possibility for Remdesivir which he is reluctant to receive. His who is sitting next to him is also having symptoms and she plans to go get tested today. The patient is seen today 01/24/2021 in follow-up on the observation unit. He is currently sitting up in bed. Awake and alert in no acute distress. He is feeling quite a bit better. Feeling stronger today. He did decline Remdesivir. He has been maintained on Lovenox, Decadron, vitamin supplements. He is currently maintaining O2 saturation in the low 90s on 3 L/m per nasal cannula. He's been afebrile. Hemodynamically stable. Chest x-ray continues to show increased bilateral infiltrates. White count 5.9. Hemoglobin 12.3. D-dimer 0.93. Sodium 134. Potassium 4.1. Creatinine 0.86. Glucose 158. AST 87. ALT 62. LDH 81. C-reactive protein 4.4. On 01/25/2021 patient seen in follow-up on medical surgical floor. He is awake and alert, in no acute distress, breathing comfortably, although still has a persistent cough, does have exertional dyspnea. He is currently on 4 L of oxygen and his pulse ox is borderline between 87-92%. No fever or chills, blood pressure is been stable, patient has been ambulate into the bathroom. Today's chest x-ray shows progressive changes in the lungs with increasing bilateral i nfiltrates. Patient remains on Decadron 6 mg daily, prophylactic Lovenox, he is on inhaled Harvest dilators, he is on COVID-19 vitamins. His labs from yesterday showed a d-dimer of 0.93, electrolytes and renal profile were fairly unremarkable, his AST and ALT were improving and were down to 87 and 62 respectively, his inflammatory markers showed a trend for improvement with LDH at 881, and CRP of 4.4. Reevaluated today on 01/26/2021, patient remains on the regular medical floor, his condition got a bit worse yesterday, he is now on 15 L nasal cannula high flow, and his O2 saturation is ranging between 90 up to 96%. However the patient does not seem to be in any distress, he is afebrile with a temp of 97 9 he had a T-max of 100.4 last night. Vital signs are stable. Blood pressure 113/43. Previous count is 11.8 hemoglobin is 11.5, d-dimer went up to 12.66, however workup for pulmonary embolism and venous Doppler came back negative yesterday last night. Patient is on the COVID-19 cocktail, he refused taking remdesivir when he qualified, he is on Lovenox at 40 mg subcu daily, he is also on vitamin D, vitamin C, zinc, and he is on Decadron 6 mg by mouth daily. Evaluated today on 02/07/2021, patient remains in the ICU, intubated and mechanically ventilated. He is presently on assist control rate of 30 tidal volume 420 FiO2 50% PEEP of 14. ABG showed a pO2 of 60 pCO2 of 71 pH of 7.39. A shunt is on propofol at 14 Nimbex at 1.5, he is also on Dilaudid when necessary, IV fluid at KVO. His renal profile showed a BUN of 57 creatinine 1.8. While I was evaluating the patient, shortly after the patient developed an episode of atrial fibrillation with RVR, recommended amiodarone to be started as per protocol, and starting amiodarone drip on this patient. Patient is not re ashleigh for any weaning trials at this point specially with his new onset atrial fibrillation with RVR. His electrolytes are normal BUN is 57 creatinine 1.18. She count is 12.4 hemoglobin is 8.1. X-ray continues to show diffuse bilateral infiltrates. Not much of a change or improvement noted. Patient remains on the COVID-19 cocktail. Remains on Decadron 6 mg IV push daily. Lovenox was increased to 80 mg subcu twice a day. Patient is also on Baricitinib. Amiodarone was added today. Reevaluated today on 02/08/21, patient remains in the ICU intubated and mechanically ventilated. He is now on assist control rate of 30 tidal volume 420 FiO2 60% and I cut it down to 50% PEEP is at 14. ABG today showed a pO2 of 60 pCO2 71 pH of 7.39. His electrolytes are normal BUN is 63 creatinine 1.47 WBC count is 11.5 hemoglobin is 8.0. Chest x-ray is not showing much of an improvement, continues to have bilateral infiltrates. Patient is on multiple drips including fentanyl at 1, propofol at 3 0 mcg/kg/m, Nimbex at 1.5 mcg/kg/m amiodarone 0.5 mg/m. Patient is on norepinephrine at 0.03 mcg/kg/m is also on enteral feeding/utilizing Nepro at 32 mL per hour and sputum cultures are normal nondiagnostic. Patient is now on oral amiodarone at 20 mg 3 times a day, and IV amiodarone has been discontinued. Patient is on ascorbic acid, I have discontinued his colazal, and it may confuse the picture because it is known to cause pneumonitis/drug-induced pneumonitis. I kept the patient on Baricitinib, remains on Lovenox 80 mg subcu twice a day specially with his atrial fibrillation and RVR although today he went back to normal sinus rhythm. Patient remains on the COVID-19 cocktail. At this point I don't see any room to wean or extubated the patient, he will remain intubated mechanically ventilated and sedated. I would also keep him paralyzed since the patient is requiring relatively high PEEP, and chest x-ray is not showing much improvement he still requiring relatively high FiO2 it was 60% and I cut it down today to 50% Reevaluated today on 02/09/2021, patient remains in the ICU intubated and mechanically ventilated. He is now on assist control rate of 30 tidal volume 420 FiO2 50% PEEP is 14. ABG is marginal with a pO2 of 56 pCO2 of 75 pH of 7.39. Remains on propofol at 30 mcg/kg/m fentanyl 20 mcg/kg/h Nimbex at 1.5 mcg/kg/m he is off norepinephrine presently he is on enteral feeding and he is on IV fluid at KVO. Chest x-ray continues to show bilateral infiltrates not much of a change in the last 24 hours. Labs including basic metabolic profile and CBC were reviewed, seem to be relatively unremarkable. Today I suggested that we stop Nimbex and try to maintain the patient mostly on propofol and fentanyl if possible, and hopefully the patient couldn't tolerate coming off paralytics. In the meantime the patient remains on the treatment as noted above. Reevaluated today on 02/10/21, patient remains in the ICU, intubated and mechanically ventilated. He is presently on assist control rate of 30 tidal volume 420 FiO2 50% PEEP is down to 14. His ABG showed a pO2 of 64 pCO2 of 66 pH of 7.44. Patient is off Nimbex today, and I have kept him on propofol at 50 mcg/kg/m he is also on fentanyl. At 1 mcg/kg/h. His norepinephrine is down to 0.02 mcg/kg/m. Again his ABG is marginal and no changes were made in his ventilator settings. However I noted that his hemoglobin is down to 6.7 today. No evidence of any active bleeding anywhere, his hemoglobin yesterday was 8.7, and I recommended a unit of packed RBCs to be transfused to this patient today. metabolic profile is normal. WBC count is 10.6 hemoglobin is 6.7. Platelets are 474. Medications-sevilla patient remains on albuterol, amiodarone 200 mg by mouth 3 times a day, ascorbic acid, vitamin D, Peridex, Decadron 6 mg by mouth daily, Lovenox 80 mg subcu twice a day, Lasix 40 mg IV push daily, patient is also on Flomax and on zinc. Objective - Vital Signs Vital signs: Vital Signs Temp 98.5 F 02/10/21 00:00 Pulse 56 L 02/10/21 07:00 Resp 31 H 02/10/21 07:00 BP 88/55 02/10/21 07:00 Pulse Ox 90 L 02/10/21 07:00 Intake & Output 02/09/21 02/10/21 02/10/21 18:59 06:59 18:59 Intake Total 1041.105 894.764 113.325 Output Total 1386 755 30 Balance -344.895 139.764 83.325 Weight 73.1 kg Intake: IV 240 240 20 Sodium Chloride 0.9% 1, 240 240 20 000 ml @ 20 mls/hr IV . Q24H [facility]ERY[facility] Rx#:[id number] Intake, IV Titration 351.105 474.764 93.325 Amount Cisatracurium 200 mg In 160.578 Sodium Chloride 0.9% 180 ml @ 2 MCG/KG/MIN 8.709 mls/hr IV .[id number] [facility] Rx #:[id number] Norepinephrine 4 mg In 0 178.535 Sodium Chloride 0.9% 250 ml @ 0.05 MCG/KG/MIN 13. 826 mls/hr IV .[id number] [facility] Rx#:[id number] fentaNYL (PF). 1,000 mcg 90.527 106.437 In Sodium Chloride 0.9% 80 ml @ 1 MCG/KG/HR 7.4 mls/hr IV .[id number] [facility] Rx #:[id number] propofoL 1,000 mg In 100 189.792 93.325 Empty Bag 1 bag @ Titrate IV .Q0M [facility] Rx#: [id number] Tube Feeding 360 150 Other 90 30 Output: Urine 1385 755 30 Stool 1 Other: Voiding Method Indwelling Catheter Indwelling Catheter ABP, PAP, CO, CI - Last Documented Arterial Blood Pressure 114/84 - Exam Physical Exam: Revealed a 75-year-old white male , intubated and mechanically ventilated. Patient was on Nimbex earlier and I have discontinued the Nimbex kept him on propofol and fentanyl. Head: Atraumatic normocephalic. HEENT:[Neck is supple.] [No neck masses.] [No thyromegaly.] [No JVD.] Chest: Crackles at the bases bilaterally. No rhonchi and no wheezes Cardiac Exam: [Normal S1 and S2, no S3 gallop, no murmur.] Abdomen: [Soft, nontender, no megaly, no rebound, no guarding, normal bowel sounds.] Extremities: [No clubbing, no edema, no cyanosis.] Neurological Exam: Not assessed, patient is sedated. And he is paralyzed Psychiatric: Cannot assess patient is sedated and paralyzed. Skin: No rashes. - Labs CBC & Chem 7: 02/10/21 07:39 02/10/21 07:39 Labs: Abnormal Lab Results - Last 24 Hours (Table) 02/09/21 02/09/21 02/09/21 Range/Units 12:11 17:50 23:59 RBC (4.30-5.90) m/uL Hgb (13.0-17.5) gm/dL Hct (39.0-53.0) % MCHC (31.0-37.0) g/dL RDW (11.5-15.5) % Plt Count (150-450) k/uL Neutrophils # (1.3-7.7) k/uL Lymphocytes # (1.0-4.8) k/uL ABG pCO2 (35-45) mmHg ABG pO2 (83-108) mmHg ABG HCO3 (21-25) mmol/L ABG Total CO2 (19-24) mmol/L ABG O2 Saturation (94-97) % Chloride (98-107) mmol/L Carbon Dioxide (22-30) mmol/L BUN (9-20) mg/dL Creatinine (0.66-1.25) mg/dL Glucose (74-99) mg/dL POC Glucose (mg/dL) 144 H 169 H 104 H (75-99) mg/dL Crossmatch 02/10/21 02/10/21 02/10/21 Range/Units 05:00 05:37 07:39 RBC 2.33 L (4.30-5.90) m/uL Hgb 6.7 L* D (13.0-17.5) gm/dL Hct 22.2 L (39.0-53.0) % MCHC 30.1 L (31.0-37.0) g/dL RDW 16.3 H (11.5-15.5) % Plt Count 474 H (150-450) k/uL Neutrophils # 9.8 H (1.3-7.7) k/uL Lymphocytes # 0.2 L (1.0-4.8) k/uL ABG pCO2 66 H (35-45) mmHg ABG pO2 64 L (83-108) mmHg ABG HCO3 45 H* (21-25) mmol/L ABG Total CO2 47 H (19-24) mmol/L ABG O2 Saturation 92.3 L (94-97) % Chloride (98-107) mmol/L Carbon Dioxide (22-30) mmol/L BUN (9-20) mg/dL Creatinine (0.66-1.25) mg/dL Glucose (74-99) mg/dL POC Glucose (mg/dL) 106 H (75-99) mg/dL Crossmatch 02/10/21 02/10/21 Range/Units 07:39 08:59 RBC (4.30-5.90) m/uL Hgb (13.0-17.5) gm/dL Hct (39.0-53.0) % MCHC (31.0-37.0) g/dL RDW (11.5-15.5) % Plt Count (150-450) k/uL Neutrophils # (1.3-7.7) k/uL Lymphocytes # (1.0-4.8) k/uL ABG pCO2 (35-45) mmHg ABG pO2 (83-108) mmHg ABG HCO3 (21-25) mmol/L ABG Total CO2 (19-24) mmol/L ABG O2 Saturation (94-97) % Chloride 97 L (98-107) mmol/L Carbon Dioxide 45 H* (22-30) mmol/L BUN 72 H (9-20) mg/dL Creatinine 1.42 H (0.66-1.25) mg/dL Glucose 100 H (74-99) mg/dL POC Glucose (mg/dL) (75-99) mg/dL Crossmatch See Detail Assessment and Plan Assessment: #1. Acute hypoxic respiratory failure secondary to COVID-19 pneumonia, not vaccinated. Symptoms started on 01/17, patient took ivermectin on outpatient basis, refused Remdesivir currently on Decadron is also on prophylactic anticoagulation, he is on COVID-19 cocktail. Received Baricitinib, on 1217, patient was transferred to the ICU and he was intubated. Remains intubated and mechanically ventilated since 02/02. He is on assist control mode of mechanical ventilation. Sedated and paralyzed. Patient is now on a combination of Baricitinib and Decadron. He was found to have bilateral lower extremity DVT. #2. Elevated inflammatory markers related to the above, improving. #3. Elevated transaminases, improving #4. History of COPD with diffuse centrilobar emphysema #5. Former smoker #6. Coronary artery disease with previous coronary artery bypass grafting 4 in 2018 #7. Mitral valve repair #8. Crohn's disease #9. Hypertension #10. History of systolic CHF #11 new-onset atrial fibrillation on 02/07/21, started patient on amiodarone. Transition today from IV amiodarone to oral amiodarone. Being followed by cardiology. #12 acute blood loss anemia, exact source is not clear, there is no evidence of active bleeding, however considering the hemoglobin is down to 6.7 we'll transfuse with 1 unit of packed RBCs today. Recommendation: Continue sedation but patient should have intermittent sedation holidays on a daily basis for assessment of mental status. Continue ventilatory support. Assist control rate of 30 tidal volume 420 PEEP 14 FiO2 50% Continue COVID-19 cocktail as above. Continue amiodarone. Evidently on oral amiodarone via nasogastric tube. Continue enteral feeding. Monitor renal profile on a daily basis.Lasix at 40 mg IV push daily. BUN today is 72 creatinine 1.42, not much of a change control specialist the last 1 week. Continue GI prophylaxis. Nephrology is evaluating his renal status. Continue to monitor inflammatory markers. CODE STATUS is now DO NOT RESUSCITATE. We will continue to follow. Critical care time is over 30 minutes, not including the time spent on proce dures. Patient had a left radial arterial line placed today. Time with Patient: Greater than 30
[2021-02-10] MEDS ORDERED: acetaZOLAMIDE 250 MG TAB PO SCH (11:00)
[2021-02-10] MEDS: CHLORHEXIDINE GLUCONATE 15 ML CUP MUCOUS MEM SCH ×2 (11:11→20:44)
--- NOTE | 2021-02-10 11:31 | PN ---
PROGRESS NOTE Patient is seen for followup for acute kidney injury. This morning patient's OG tube came out. It is being reinserted. Patient's urine output had been on the lower side overnight. Currently at about 30 mL an hour. Patient's creatinine has increased. He remains on the vent. He is sedated. Levophed is at 0.02 mics. Hemoglobin was noted to be 6.7 g/dL today. Patient is being transfused packed RBCs. PHYSICAL EXAMINATION: Blood pressure was 88/55, heart rate 56 per minute. He is afebrile. Examination of the lower extremities shows edema 1+ bilaterally. AIR SHOVEL OPERATOR exam cannot be performed. Lungs and heart are not heard. LAB: Show hemoglobin 6.7, white cell count 10.6, sodium 140, potassium 4.4, chloride 97, CO2 is 45, BUN 72, creatinine 1.42. ASSESSMENT: 1. Acute kidney injury with renal function worse today secondary to severe anemia. Blood pressure remains on the lower side. The patient is maintained on a small dose of Levophed which is stable. 2. Anemia, being transfused packed RBCs. No active bleeding noted at this time. 3. Acute hypoxic respiratory failure. 4. COVID pneumonia. 5. Metabolic alkalosis associated with diuresis. Add Diamox. PLAN: Add Diamox. If blood pressure drops further, I will discontinue the Lasix. Repeat labs in a.m. MMODL / IJN: [id number] /
[2021-02-10 11:46] LABS: Glucose,Whole Blood 109 mg/dL (75-99)
[2021-02-10] MEDS: ENOXAPARIN 80 MG/0.8 ML SYRINGE SQ SCH ×2 (12:44→20:44)
[2021-02-10] MEDS: TAMSULOSIN 0.4 MG CAP.ER.24H PO SCH ×2 (12:53→19:53)
[2021-02-10] MEDS: AMIODARONE 200 MG TAB PO SCH ×3 (12:53→19:53)
[2021-02-10] MEDS: ZINC SULFATE 220 MG CAP PO SCH (12:53)
[2021-02-10] MEDS: CYANOCOBALAMIN 500 MCG TAB PO SCH (12:53)
[2021-02-10] MEDS: CHOLECALCIFEROL 125 MCG (5000 IU) TABLET PO SCH (12:53)
[2021-02-10] MEDS: ASCORBIC ACID 500 MG TAB PO SCH (12:53)
--- NOTE | 2021-02-10 13:16 | PCN ---
PROCEDURE NOTE PROCEDURE PERFORMED: Placement of the left radial arterial line. PREOPERATIVE DIAGNOSIS: Acute Covid 19 pneumonia and hypoxic respiratory failure. POSTOPERATIVE DIAGNOSIS: Acute Covid 19 pneumonia and hypoxic respiratory failure. ANESTHESIA: Used none deployed. PROCEDURE PERFORMED: The left wrist was prepared in a sterile fashion. Drapes were applied. The left radial artery was palpated, cannulated easily and a guidewire was placed. A Cook's catheter was inserted over the guidewire and the guidewire was removed. Good blood flow noted, good waveform noted. Line was secured using 3.0 silk sutures. No complications. MMODL / IJN: [id number] /
[2021-02-10] MEDS: FUROSEMIDE 10 MG/ML 4 ML VIAL IV SCH (16:00)
[2021-02-10] MEDS: DEXAMETHASONE SOD PHOSPHATE 10 MG/ML 1 ML VIAL IVP SCH (16:06)
[2021-02-10 17:50] LABS: Glucose,Whole Blood 109 mg/dL (75-99)
[2021-02-10] MEDS: fentaNYL (PF). 1,000 MCG in SODIUM CHLORIDE 0.9% 80 ML IV SCH (19:10)
[2021-02-10] MEDS: CISATRACURIUM 200 MG in SODIUM CHLORIDE 0.9% 180 ML IV SCH (19:52)
[2021-02-10] MEDS: NOREPINEPHRINE 4 MG in SODIUM CHLORIDE 0.9% 250 ML IV SCH ×3 (19:52)
[2021-02-10] MEDS: SODIUM CHLORIDE 0.9% 1,000 ML IV SCH (19:52)
--- NOTE | 2021-02-10 19:58 | P.PN ---
Progress Note - Text Progress Note Date: 02/10/21 Hospital course: 74-year-old patient who follows with Dr. Mauricio Keith. Tonic stable medical conditions include hypertension, Crohn's disease, nephrolithiasis, BPH, hypertension, tinnitus, COPD, CAD with bypass. EF of 20-25%. Presented with shortness of breath. Diagnosed with COVID 19 on January 18 symptoms starting 1 day before. He was found to be hypoxic at home. Upon arrival he was 85%. Patient declined treatment with Remdesivir. Patient had been taking ivermectin as outpatient. She requested this to be continued. This was declined by the admitting team as this was not approved treatment. Patient not vaccinated against COVID. She did with subcu Lovenox and dexamethasone. January 24: Patient feeling better. On 3 L nasal cannula. Oral intake fair. Up in a bed. Slight cough. January 25: Sitting up in a recliner. Tired. Has some chest tightness. 92% on 4 L. Oral intake good. January 26: Bit more short of breath. Oxygen requirement: Up to 15 L. Had low-grade fever. Eating about 50-75%. Tired. Up in a chair. January 27: Short of breath. Sitting at the edge of the bed. 15 L nasal cannula. Decreased appetite. January 28: Laying in bed. Tired. Short of breath. On 15 L nonrebreather. Oral intake fair. Started on Baricitinib by pulmonary January 29: Patient is become more short of breath. Placed on BiPAP. Decreased oral intake. Tired. On Baricitinib, dexamethasone. January 30: Sitting up in a chair. Using BiPAP. Short of breath. Decreased oral intake. On Baricitinib) dexamethasone. Acute PE on CT chest. Started on eliquis January 31: Sitting at the edge of the bed. BiPAP. Short of breath. Tired. On eliquis, on Baricitinib, dexamethasone. February 01: Laying in bed. Short of breath. BiPAP. Tired. On Baricitinib, dexamethasone, eliquis. Eating reasonably well. February 02: Rather tired short of breath BiPAP 100%. On dexamethasone, eliquis February 03: ICU: Intubated yesterday. Prone position. Ventilator FiO2 70 PEEP of 12. Drips included propofol and Nimbex. February 08: ICU: Ventilator FiO2 52 PEEP of 14. 2 feeding at 30 mL an hour. Went into an episode of rapid A. fib last night. Given IV amiodarone. Current drips include norepinephrine, Nimbex, propofol, fentanyl February 09: ICU: Ventilator: FiO2 40 and a PEEP of 14. 2 feeding at 30 mL an hour. Drips include fentanyl, propofol. Atrial fibrillation controlled February 10: ICU: On the ventilator. FiO2 15 a PEEP of 14. Drips included propofol and fentanyl. Atrial fibrillation controlled. Earlier hemoglobin dropped to 6.7. No evidence of bleeding. 1 unit of blood ordered. Review of systems: Patient sedated Active Medications Acetaminophen (Acetaminophen Tab 325 Mg Tab) 650 mg PO Q6HR PRN PRN Reason: Fever and/ or Pain Last Admin: 02/02/21 06:07 Dose: 650 mg Documented by: Acetazolamide Sodium (Acetazolamide Sodium 500 Mg Vial) 250 mg IV Q12HR [facility] Last Admin: 02/10/21 16:11 Dose: 250 mg Documented by: Albuterol Sulfate (Albuterol Hfa Inhaler) 2 puff INHALATION RT-QID [facility] Last Admin: 02/10/21 19:32 Dose: 2 puff Documented by: Albuterol Sulfate (Albuterol Hfa Inhaler) 4 puff INHALATION RT-QID PRN PRN Reason: Shortness Of Breath Or Wheezing Amiodarone HCl (Amiodarone 200 Mg Tab) 200 mg PO TID [facility] Stop: 02/15/21 11:16 Last Admin: 02/10/21 19:53 Dose: Not Given Documented by: Amiodarone HCl (Amiodarone 200 Mg Tab) 200 mg PO BID [facility] Artificial Tears (Artificial Tears-Hypromellose Drops 15 Ml Btl) 2 drops BOTH EYES Q4HR [facility] Last Admin: 02/10/21 16:16 Dose: Not Given Documented by: Ascorbic Acid (Ascorbic Acid 500 Mg Tab) 2,000 mg PO DAILY [facility] Last Admin: 02/10/21 12:53 Dose: Not Given Documented by: Chlorhexidine Gluconate (Chlorhexidine Gluconate 15 Ml Cup) 15 ml MUCOUS MEM BID [facility] Last Admin: 02/10/21 11:11 Dose: 15 ml Documented by: Cholecalciferol (Cholecalciferol 125 Mcg (5000 Iu) Tablet) 125 mcg PO DAILY [facility] Last Admin: 02/10/21 12:53 Dose: Not Given Documented by: Cyanocobalamin (Cyanocobalamin 500 Mcg Tab) 4,000 mcg PO DAILY [facility] Last Admin: 02/10/21 12:53 Dose: Not Given Documented by: Dexamethasone Sodium Phosphate (Dexamethasone Sod Phosphate 10 Mg/Ml 1 Ml Vial) 6 mg IVP DAILY [facility] Last Admin: 02/10/21 16:06 Dose: 6 mg Documented by: Enoxaparin Sodium (Enoxaparin 80 Mg/0.8 Ml Syringe) 80 mg SQ BID [facility] Last Admin: 02/10/21 12:44 Dose: 80 mg Documented by: Furosemide (Furosemide 10 Mg/Ml 4 Ml Vial) 40 mg IV DAILY [facility] Last Admin: 02/10/21 16:00 Dose: 40 mg Documented by: Propofol 1,000 mg/ IV Solution 100 mls @ 0 mls/hr IV .Q0M [facility]; Protocol Last Admin: 02/10/21 19:50 Dose: 30 mcg/kg/min, 13.158 mls/hr Documented by: Cisatracurium Besylate 200 mg/ (Sodium Chloride) 200 mls @ 8.709 mls/hr IV .[id number] [facility]; Protocol Last Admin: 02/10/21 19:52 Dose: Not Given Documented by: Norepinephrine Bitartrate 4 mg (/ Sodium Chloride) 254 mls @ 13.826 mls/hr IV .[id number] [facility]; Protocol Last Admin: 02/10/21 19:52 Dose: Not Given Documented by: Sodium Chloride (Saline 0.9%) 1,000 mls @ 20 mls/hr IV .Q24H [facility] Last Admin: 02/10/21 19:52 Dose: Not Given Documented by: Fentanyl Citrate 1,000 mcg/ (Sodium Chloride) 100 mls @ 7.4 mls/hr IV .[id number] [facility]; Protocol Last Admin: 02/10/21 19:10 Dose: 1 mcg/kg/hr, 7.4 mls/hr Documented by: Insulin Aspart (Insulin Aspart (Novolog) 100 Unit/Ml Vial) 0 unit SQ Q6H [facility]; Protocol Last Admin: 02/10/21 17:38 Dose: Not Given Documented by: Tamsulosin HCl (Tamsulosin 0.4 Mg Cap.Er.24h) 0.4 mg PO BID [facility] Last Admin: 02/10/21 19:53 Dose: Not Given Documented by: Zinc Sulfate (Zinc Sulfate 220 Mg Cap) 220 mg PO DAILY [facility] Last Admin: 02/10/21 12:53 Dose: Not Given Documented by: On examination: VITAL SIGNS: 99, 85, 32, 121/46, 92% on the ventilator GENERAL APPEARANCE: , sedated, intubated RESPIRATORY: Respiratory effort increased. PSYCHIATRY: Unable to assess, sedated Rest of the exam per pulmonary and nursing INVESTIGATIONS, reviewed in the clinical context: February 10: WBC 10.6 hemoglobin 6.7 platelets. Potassium 4.4 BUN 72 creatinine 1.4 to February 09: White count 9.5 hemoglobin 8.7 platelets 374 ABG: PCO2 35 pO2 56 potassium 5 creatinine 1.07. Chest x-ray: Bilateral infiltrates February 08: WBC 11.5 hemoglobin 8 platelets 450 potassium 4.7 BUN 63 creatinine 1.47 Doppler ultrasound [February 05] DVT in the left popliteal vein and right lower extremity superficial vein February 03: W BC 21.5 hemoglobin 8.8 platelets 267 ABG: PH 7.25 pCO2 34 pO2 93 potassium 4.6 creatinine 1.39 February 02: White count 18.4 hemoglobin 9. ABG: PH 7.5 pO2 58 creatinine 1.18. Chest x-ray: Worsening February 01: White count 16.7 hemoglobin 9.7 d-dimer greater than 34 BUN 45 creatinine 1.27 January 31: WBC 13.1 COVID 10.3 d-dimer greater than 34 potassium 4.5 creatinine 1.26 CRP 3.5 January 30: WBC 10.4 hemoglobin 9.8 platelets 145 potassium 4.5 creatinine 1.4. AST [address] angiogram for PE [January 30] new [place] occlusive embolism segmental bronchus right lower lobe with segmental extension. Doppler ultrasound [January 29]: Superficial thrombosis in the right lesser saphenous vein. January 29: D-dimer greater than 34 potassium 4.4 BUN 67 creatinine 1.61 AST 174 ALT 73 January 28: WBC 10.2 hemoglobin 11.4 platelets 154 d-dimer greater than 34 sodium 136 potassium 4.9. 43 creatinine 1.29 January 27: WBC 11.8 hemoglobin 10.5 January 26: White count 11.8 hemoglobin 11.5 d-dimer 12.6 CRP 7.3 White count 5.9 hemoglobin 12.3 platelets 162 d-dimer 0.93 potassium 4.1 creatinine 0.86 CRP 4.4 Admission labs: Pro-calcitonin 0.04 Coronavirus [PCR]: Detected D-dimer 0.83 EKG tracing personally reviewed by me-sinus bradycardia. Rate 55 Chest x-ray: biLateral infiltrates Assessment and plan: -Bilateral COVID 19 pneumonitis: Not improving Dexamethasone. Subcu Lovenox. (declined Remdesivir. patient was taking ivermectin at home). Baricitinib started January 28 -Acute pulmonary embolism, along with DVT: Lovenox subcu -Septic shock:better Received IV levo fed -Acute hypoxic respiratory failure from COVID 19: Not improving Intubated February 02. On the ventilator -Essential hypertension: Currently blood pressure is running low -Chronic Crohn's disease Pentasa 1000 milligrams 3 times a day - nephrolithiasis Follow clinically -Acute kidney injury. Possibly ATN from COVID 19 causing infection and hypertension Follow nephrology -Paroxysmal atrial fibrillation with episodes of rapid ventricular rate Amiodarone -BPH Flomax 0.4 mg twice a day -COPD in a previous smoker Pulmicort -Chronic tinnitus with hearing impairment -CAD with bypass Aspirin, beta billy, Lipitor -Hyperlipidemia Lipitor 40 mg daily -Acute hepatitis: Improving hold Lipitor. Follow LFT -Full code , propofol, fentanyl. Dexamethasone. Subcu Lovenox On the ventilator intubated. Prognosis guarded. 1 unit of blood given.
[2021-02-10 20:21] LABS: HCT 31.3 % (39.0-53.0); Hypochromasia Marked; MCHC 30.4 g/dL (31.0-37.0); MCV 95.4 fL (80.0-100.0); Mean Platelet Volume 8.5; Platelet Count 423 k/uL (150-450); RBC 3.28 m/uL (4.30-5.90); RDW 15.7 % (11.5-15.5); WBC 13.6 k/uL (3.8-10.6)
[2021-02-10 20:30] LABS: HGB 9.5 gm/dL (13.0-17.5)
[2021-02-11 00:42] LABS: Glucose,Whole Blood 123 mg/dL (75-99)
[2021-02-11] MEDS: INSULIN ASPART (NovoLOG) 100 UNIT/ML VIAL SQ SCH ×4 (00:53→18:56)
[2021-02-11] MEDS: ARTIFICIAL TEARS-HYPROMELLOSE DROPS 15 ML BTL BOTH EYES SCH ×6 (00:54→20:25)
[2021-02-11 04:04] LABS: Anisocytosis Slight; Basophils % (A) 0 %; Eosinophils % (A) 0 %; HCT 33.1 % (39.0-53.0); HGB 9.7 gm/dL (13.0-17.5); Hypochromasia Marked; Lymphocytes # (A) 0.2 k/uL (1.0-4.8); Lymphocytes % (A) 1 %; MCH 28.2 pg (25.0-35.0); MCHC 29.2 g/dL (31.0-37.0); MCV 96.6 fL (80.0-100.0); Macrocytosis Slight; Mean Platelet Volume 8.6; Monocytes # (A) 0.3 k/uL (0-1.0); Monocytes % (A) 2 %; Neutrophils # (A) 12.2 k/uL (1.3-7.7); Neutrophils % (A) 96 %; Platelet Count 432 k/uL (150-450); RBC 3.43 m/uL (4.30-5.90); RDW 16.1 % (11.5-15.5); WBC 12.7 k/uL (3.8-10.6)
[2021-02-11 04:24] LABS: Calcium 8.2 mg/dL (8.4-10.2); Potassium 4.6 mmol/L (3.5-5.1)
[2021-02-11 05:41] LABS: ABG Base Excess 14.7 mmol/L; ABG HCO3 39 mmol/L (21-25); ABG Oxygen Saturation 95.5 % (94-97); ABG PCO2 62 mmHg (35-45); ABG PH 7.41 (7.35-7.45); ABG PO2 90 mmHg (83-108); ABG TCO2 41 mmol/L (19-24); Allen Test Performed? Yes
[2021-02-11] MEDS: fentaNYL (PF). 1,000 MCG in SODIUM CHLORIDE 0.9% 80 ML IV SCH ×2 (06:36→18:49)
[2021-02-11] MEDS: NOREPINEPHRINE 4 MG in SODIUM CHLORIDE 0.9% 250 ML IV SCH (06:36)
--- NOTE | 2021-02-11 07:03 | XR ---
EXAM: XR Chest, 1 View CLINICAL HISTORY: ITS.REASON XR Reason: covid TECHNIQUE: Frontal view of the chest. COMPARISON: CXR, 2 days ago. FINDINGS/IMPRESSION: NEW, MODERATE RIGHT BASILAR PNEUMOTHORAX. Stable underlying airspace consolidations. Cardiomegaly. Calcified aorta. Sternotomy wires. Stable endotracheal tube.
[2021-02-11] MEDS ORDERED: CISATRACURIUM 2 MG/ML 5 ML VIAL IV ONE ×3 (07:45→07:51)
[2021-02-11] MEDS: ALBUTEROL HFA INHALER INHALATION SCH ×4 (08:30→20:42)
--- NOTE | 2021-02-11 08:30 | XR ---
EXAMINATION TYPE: XR chest 1V confirm line [facility] DATE OF EXAM: 02/11/2021 HISTORY: Shortness of breath. COMPARISON: 02/11/2021 TECHNIQUE: Single view of the chest is submitted. FINDINGS: Interval placement of right-sided chest tube. Right-sided pneumothorax persists although is smaller i n size and is estimated at 15% at this time. Perihilar and basilar reticulonodular infiltrates persist. Endotracheal tube and left subclavian cent ral venous line unchanged. The heart is stable. Hilar and mediastinal structures are within normal limits. Degenerative changes are seen of the dorsal spine. IMPRESSION: 1. Interval placement of right-sided chest tube. Right-sided pneumothorax persists although is small er in size and is estimated at 15% at this time.
[2021-02-11] MEDS: CHOLECALCIFEROL 125 MCG (5000 IU) TABLET PO SCH (09:03)
[2021-02-11] MEDS: AMIODARONE 200 MG TAB PO SCH ×3 (09:03→20:20)
[2021-02-11] MEDS: CYANOCOBALAMIN 500 MCG TAB PO SCH (09:03)
[2021-02-11] MEDS: ASCORBIC ACID 500 MG TAB PO SCH (09:03)
[2021-02-11] MEDS: ZINC SULFATE 220 MG CAP PO SCH (09:03)
[2021-02-11] MEDS: TAMSULOSIN 0.4 MG CAP.ER.24H PO SCH ×2 (09:03→20:20)
[2021-02-11] MEDS: CISATRACURIUM 200 MG in SODIUM CHLORIDE 0.9% 180 ML IV SCH (09:05)
[2021-02-11 09:08] LABS: ABG Base Excess 16.1 mmol/L; ABG HCO3 38 mmol/L (21-25); ABG PCO2 41 mmHg (35-45); ABG PO2 81 mmHg (83-108); ABG TCO2 39 mmol/L (19-24); Allen Test Performed? Yes
[2021-02-11 09:11] LABS: ABG PH 7.57 (7.35-7.45)
[2021-02-11] MEDS: FUROSEMIDE 10 MG/ML 4 ML VIAL IV SCH (09:11)
[2021-02-11] MEDS: ENOXAPARIN 80 MG/0.8 ML SYRINGE SQ SCH ×3 (09:15→20:39)
[2021-02-11] MEDS: DEXAMETHASONE SOD PHOSPHATE 10 MG/ML 1 ML VIAL IVP SCH (09:23)
[2021-02-11] MEDS: CHLORHEXIDINE GLUCONATE 15 ML CUP MUCOUS MEM SCH ×2 (09:24→20:22)
--- NOTE | 2021-02-11 10:28 | XR ---
EXAMINATION TYPE: XR chest 1V portable DATE OF EXAM: 02/11/2021 HISTORY: Shortness of breath. COMPARISON: Earlier in the day TECHNIQUE: Single view of the chest is submitted. FINDINGS: Right-sided chest tube is in place. The right-sided pneumothorax is essentially unchanged and estimat ed at 10-15%. Scattered reticulonodular infiltrates are unchanged. . The heart is stable. Hilar and mediastinal structures are within normal limits. Degenerative changes are seen of the dorsal spine. IMPRESSION: 1. Right-sided chest tube is in place. The right-sided pneumothorax is essentially unchanged and est imated at 10-15%.
--- NOTE | 2021-02-11 10:59 | OP ---
OPERATIVE REPORT OPERATIVE REPORT: Right-sided tube thoracostomy/chest tube placement. PREOPERATIVE DIAGNOSIS: Right-sided pneumothorax. POSTOPERATIVE DIAGNOSIS: Right-sided tension pneumothorax. SURGEON: Dr. Harmon. DIE SINKING MACHINE OPERATOR: Dr. Andreia Arango ANESTHESIA USED: 5 mL of 2% lidocaine, and the patient was already on fentanyl, and he was given Nimbex 10 mg IV push prior to the procedure. PROCEDURE DESCRIPTION: The patient was placed in supine position. The area of the left chest at the level of the fifth and sixth intercostal space and anterior axillary line was prepared in a sterile fashion and drapes were applied. The area was locally anesthetized with lidocaine, and a 1.5 cm incision was made at the level of the sixth intercostal space and anterior axillary line. Then the fascia was dissected with a finger and with forceps until the pleural space was entered. As the pleural space was entered, there was gushing of air, indication of tension pneumothorax developing in the right lung. Then a 28 [place] chest tube was placed pointing atypically, and secured in place with suturing using 0.0 Ethibond sutures. Tube was connected to Pleur-Evac. Chest x-ray postoperatively showed no complications. Dressing was applied. Procedure was well tolerated. No complications. MMODL / IJN: [id number] /
[2021-02-11] MEDS ORDERED: SODIUM CHLORIDE 0.9% 500 ML 500 ML IV ONE (11:20)
[2021-02-11 11:34] LABS: Glucose,Whole Blood 127 mg/dL (75-99)
--- NOTE | 2021-02-11 11:48 | P.PN ---
Subjective Progress Note Date: 02/11/21 Principal diagnosis: Acute hypoxic respiratory failure secondary to COVID-19 pneumonia This is a 75-year-old male patient who follows with Dr. Mauricio Keith is his primary care provider. He has a history of coronary artery disease with previous coronary artery bypass grafting, mitral valve replacement, hypertension, hyperlipidemia, chronic obstructive pulmonary disease, former smoker, Crohn's disease. On January 17 the patient started having symptoms of fever cough congestion weakness and was tested for COVID-19 on January 18. He found out his results on January 21 and was told to stay home and rest unless his symptoms worsened. He was given doxycycline and prednisone 20 mg twice a day. His brought him into the emergency room here today as his oxygen levels were dropping at home. Chest x-rays revealing patchy bilateral interstitial pneumonia with underlying COPD. White count 2.8. Hemoglobin 12.9. Platelets 149. Lymphocytes 0.2. D-dimer 0.83. Sodium 133. Potassium 4.7. Creatinine 1.06. Glucose 154. AST 122. ALT 75. LDH 1082. C-reactive protein 6.4. Chronic virus by PCR positive. The patient is not vaccinated. He is seen today in the emergency room. Awake and alert in no acute distress. Sitting up on a stretcher. He is 85% O2 saturation on room air. 93% on 2 L per nasal cannula. Afebrile. Hemodynamically stable. He's been initiated on Lovenox and vitamin supplements. He will be started on Decadron. We discussed with him the possibility for Remdesivir which he is reluctant to receive. His who is sitting next to him is also having symptoms and she plans to go get tested today. The patient is seen today 01/24/2021 in follow-up on the observation unit. He is currently sitting up in bed. Awake and alert in no acute distress. He is feeling quite a bit better. Feeling stronger today. He did decline Remdesivir. He has been maintained on Lovenox, Decadron, vitamin supplements. He is currently maintaining O2 saturation in the low 90s on 3 L/m per nasal cannula. He's been afebrile. Hemodynamically stable. Chest x-ray continues to show increased bilateral infiltrates. White count 5.9. Hemoglobin 12.3. D-dimer 0.93. Sodium 134. Potassium 4.1. Creatinine 0.86. Glucose 158. AST 87. ALT 62. LDH 81. C-reactive protein 4.4. On 01/25/2021 patient seen in follow-up on medical surgical floor. He is awake and alert, in no acute distress, breathing comfortably, although still has a persistent cough, does have exertional dyspnea. He is currently on 4 L of oxygen and his pulse ox is borderline between 87-92%. No fever or chills, blood pressure is been stable, patient has been ambulate into the bathroom. Today's chest x-ray shows progressive changes in the lungs with increasing bilateral i nfiltrates. Patient remains on Decadron 6 mg daily, prophylactic Lovenox, he is on inhaled [place] dilators, he is on COVID-19 vitamins. His labs from yesterday showed a d-dimer of 0.93, electrolytes and renal profile were fairly unremarkable, his AST and ALT were improving and were down to 87 and 62 respectively, his inflammatory markers showed a trend for improvement with LDH at 881, and CRP of 4.4. Reevaluated today on 01/26/2021, patient remains on the regular medical floor, his condition got a bit worse yesterday, he is now on 15 L nasal cannula high flow, and his O2 saturation is ranging between 90 up to 96%. However the patient does not seem to be in any distress, he is afebrile with a temp of 97 9 he had a T-max of 100.4 last night. Vital signs are stable. Blood pressure 113/43. Previous count is 11.8 hemoglobin is 11.5, d-dimer went up to 12.66, however workup for pulmonary embolism and venous Doppler came back negative yesterday last night. Patient is on the COVID-19 cocktail, he refused taking remdesivir when he qualified, he is on Lovenox at 40 mg subcu daily, he is also on vitamin D, vitamin C, zinc, and he is on Decadron 6 mg by mouth daily. Evaluated today on 02/07/2021, patient remains in the ICU, intubated and mechanically ventilated. He is presently on assist control rate of 30 tidal volume 420 FiO2 50% PEEP of 14. ABG showed a pO2 of 60 pCO2 of 71 pH of 7.39. A shunt is on propofol at 14 Nimbex at 1.5, he is also on Dilaudid when necessary, IV fluid at KVO. His renal profile showed a BUN of 57 creatinine 1.8. While I was evaluating the patient, shortly after the patient developed an episode of atrial fibrillation with RVR, recommended amiodarone to be started as per protocol, and starting amiodarone drip on this patient. Patient is not re ashleigh for any weaning trials at this point specially with his new onset atrial fibrillation with RVR. His electrolytes are normal BUN is 57 creatinine 1.18. She count is 12.4 hemoglobin is 8.1. X-ray continues to show diffuse bilateral infiltrates. Not much of a change or improvement noted. Patient remains on the COVID-19 cocktail. Remains on Decadron 6 mg IV push daily. Lovenox was increased to 80 mg subcu twice a day. Patient is also on Baricitinib. Amiodarone was added today. Reevaluated today on 02/08/21, patient remains in the ICU intubated and mechanically ventilated. He is now on assist control rate of 30 tidal volume 420 FiO2 60% and I cut it down to 50% PEEP is at 14. ABG today showed a pO2 of 60 pCO2 71 pH of 7.39. His electrolytes are normal BUN is 63 creatinine 1.47 WBC count is 11.5 hemoglobin is 8.0. Chest x-ray is not showing much of an improvement, continues to have bilateral infiltrates. Patient is on multiple drips including fentanyl at 1, propofol at 3 0 mcg/kg/m, Nimbex at 1.5 mcg/kg/m amiodarone 0.5 mg/m. Patient is on norepinephrine at 0.03 mcg/kg/m is also on enteral feeding/utilizing Nepro at 32 mL per hour and sputum cultures are normal nondiagnostic. Patient is now on oral amiodarone at 20 mg 3 times a day, and IV amiodarone has been discontinued. Patient is on ascorbic acid, I have discontinued his colazal, and it may confuse the picture because it is known to cause pneumonitis/drug-induced pneumonitis. I kept the patient on Baricitinib, remains on Lovenox 80 mg subcu twice a day specially with his atrial fibrillation and RVR although today he went back to normal sinus rhythm. Patient remains on the COVID-19 cocktail. At this point I don't see any room to wean or extubated the patient, he will remain intubated mechanically ventilated and sedated. I would also keep him paralyzed since the patient is requiring relatively high PEEP, and chest x-ray is not showing much improvement he still requiring relatively high FiO2 it was 60% and I cut it down today to 50% Reevaluated today on 02/09/2021, patient remains in the ICU intubated and mechanically ventilated. He is now on assist control rate of 30 tidal volume 420 FiO2 50% PEEP is 14. ABG is marginal with a pO2 of 56 pCO2 of 75 pH of 7.39. Remains on propofol at 30 mcg/kg/m fentanyl 20 mcg/kg/h Nimbex at 1.5 mcg/kg/m he is off norepinephrine presently he is on enteral feeding and he is on IV fluid at KVO. Chest x-ray continues to show bilateral infiltrates not much of a change in the last 24 hours. Labs including basic metabolic profile and CBC were reviewed, seem to be relatively unremarkable. Today I suggested that we stop Nimbex and try to maintain the patient mostly on propofol and fentanyl if possible, and hopefully the patient couldn't tolerate coming off paralytics. In the meantime the patient remains on the treatment as noted above. Reevaluated today on 02/10/21, patient remains in the ICU, intubated and mechanically ventilated. He is presently on assist control rate of 30 tidal volume 420 FiO2 50% PEEP is down to 14. His ABG showed a pO2 of 64 pCO2 of 66 pH of 7.44. Patient is off Nimbex today, and I have kept him on propofol at 50 mcg/kg/m he is also on fentanyl. At 1 mcg/kg/h. His norepinephrine is down to 0.02 mcg/kg/m. Again his ABG is marginal and no changes were made in his ventilator settings. However I noted that his hemoglobin is down to 6.7 today. No evidence of any active bleeding anywhere, his hemoglobin yesterday was 8.7, and I recommended a unit of packed RBCs to be transfused to this patient today. metabolic profile is normal. WBC count is 10.6 hemoglobin is 6.7. Platelets are 474. Medications-sevilla patient remains on albuterol, amiodarone 200 mg by mouth 3 times a day, ascorbic acid, vitamin D, Peridex, Decadron 6 mg by mouth daily, Lovenox 80 mg subcu twice a day, Lasix 40 mg IV push daily, patient is also on Flomax and on zinc. Reevaluated today on 02/11/21, patient remains intubated and mechanically ventilated. Remains in the ICU. However this morning the patient developed a large right-sided pneumothorax requiring tube thoracostomy. Patient was noted to have significant air leak after the chest tube placement, and had to cut down on his PEEP down to 6, I had to increase his tidal volume to make up for the loss of volume through the chest tube, and I haven't now on FiO2 of 50% PEEP of 6 tidal volume 600 although he is getting about 400 and his rate is at 36. Chest x-ray post chest tube placement showed adequate positioning of the chest tube, and a small residual pneumothorax. Significant expansion of the right lung was noted. Again after the chest tube there was significant amount of air leak and seems to be gradually getting better we made up for the loss of volume by increasing the rate increasing the tidal volume and cutting down the PEEP down to 6. ABG after all these changes showed a pO2 of 81 pCO2 41 pH of 7.57. WBC count today is 4.7 hemoglobin is 9.7. Basic metabolic profile is normal renal functioning is abnormal him a creatinine is up to 1.87 from 1.4 to yesterday. Patient continues to have significant amount of hematuria , to be evaluated by urology in the meantime I'm holding his Lovenox, if urology see the patient and recommends no more anticoagulation therapy, I will done strongly recommend IVC filter placement in this patient. This will be decided upon hopefully later today or definitely in the next 24 hours. In the meantime we'll keep Lovenox and anticoagulations therapy on hold we are still having difficulty with a orogastric tube placement in this patient, general surgery was consulted, and the plan is to start the patient on TPN today, Dr. Rincon we'll arrange for EGD and orogastric tube placement hopefully tomorrow. May have to switch amiodarone to IV form instead of oral form because of no GI access at this point . Today the patient will remain on fentanyl and on propofol and no plans to wean him since we are dealing with many issues including his hematuria, his COVID-19 pneumonia, his right-sided pneumothorax which is a complication of COVID-19 infection and his renal status with worsening renal picture. Objective - Vital Signs Vital signs: Vital Signs Temp 97.4 F L 02/11/21 08:00 Pulse 50 L 02/11/21 11:00 Resp 36 H 02/11/21 11:00 BP 121/73 02/11/21 11:00 Pulse Ox 94 L 02/11/21 11:00 Intake & Output 02/10/21 02/11/21 02/11/21 18:59 06:59 18:59 Intake Total 845.565 630.007 217.113 Output Total 855 850 285 Balance -9.435 -219.993 -67.887 Weight 78.7 kg Intake: IV 178 299 92 Pressure Bag 0.9 sodium 18 39 12 chloride Sodium Chloride 0.9% 1, 160 260 80 000 ml @ 20 mls/hr IV . Q24H [facility]ERY[facility] Rx#:[id number] Intake, IV Titration 357.565 331.007 125.113 Amount Norepinephrine 4 mg In 64.24 85.116 26.867 Sodium Chloride 0.9% 250 ml @ 0.05 MCG/KG/MIN 13. 826 mls/hr IV .[id number] [facility]ERY[facility] Rx#:[id number] fentaNYL (PF). 1,000 mcg 100 84.607 In Sodium Chloride 0.9% 80 ml @ 1 MCG/KG/HR 7.4 mls/hr IV .[id number] [facility]ERY[facility] Rx #:[id number] propofoL 1,000 mg In 193.325 161.284 98.246 Empty Bag 1 bag @ Titrate IV .Q0M [facility]ERY[facility] Rx#: [id number] Tube Feeding 0 Blood Product 310 Rc As-1 Unit 310 [id number] Output: Urine 855 850 285 Other: Voiding Method Indwelling Catheter Indwelling Catheter Indwelling Catheter ABP, PAP, CO, CI - Last Documented Arterial Blood Pressure 120/48 - Exam Physical Exam: Revealed a 75-year-old white male , intubated and mechanically ventilated. On fentanyl and propofol, Nimbex has been discontinued. Patient has intermittently been on norepinephrine presently it is off. Head: Atraumatic normocephalic. HEENT:[Neck is supple.] [No neck masses.] [No thyromegaly.] [No JVD.] Chest: Crackles at the bases bilaterally. No rhonchi and no wheezes, right- sided chest tube is noted connected to Pleur-evac with significant air leak noted. Cardiac Exam: [Normal S1 and S2, no S3 gallop, no murmur.] Abdomen: [Soft, nontender, no megaly, no rebound, no guarding, normal bowel raf nds.] Extremities: [No clubbing, no edema, no cyanosis.] Neurological Exam: Not assessed, patient is sedated. And he is paralyzed Psychiatric: Cannot assess patient is sedated and paralyzed. Skin: No rashes. - Labs CBC & Chem 7: 02/11/21 03:50 02/11/21 03:50 Labs: Abnormal Lab Results - Last 24 Hours (Table) 02/10/21 02/10/21 02/10/21 Range/Units 08:59 11:34 17:38 WBC (3.8-10.6) k/uL RBC (4.30-5.90) m/uL Hgb (13.0-17.5) gm/dL Hct (39.0-53.0) % MCHC (31.0-37.0) g/dL RDW (11.5-15.5) % Neutrophils # (1.3-7.7) k/uL Lymphocytes # (1.0-4.8) k/uL ABG pH (7.35-7.45) ABG pCO2 (35-45) mmHg ABG pO2 (83-108) mmHg ABG HCO3 (21-25) mmol/L ABG Total CO2 (19-24) mmol/L Chloride (98-107) mmol/L Carbon Dioxide (22-30) mmol/L BUN (9-20) mg/dL Creatinine (0.66-1.25) mg/dL Glucose (74-99) mg/dL POC Glucose (mg/dL) 109 H 109 H (75-99) mg/dL Calcium (8.4-10.2) mg/dL Crossmatch See Detail 02/10/21 02/11/21 02/11/21 Range/Units 19:56 00:41 03:50 WBC 13.6 H 12.7 H (3.8-10.6) k/uL RBC 3.28 L 3.43 L (4.30-5.90) m/uL Hgb 9.5 L D 9.7 L (13.0-17.5) gm/dL Hct 31.3 L 33.1 L (39.0-53.0) % MCHC 30.4 L 29.2 L (31.0-37.0) g/dL RDW 15.7 H 16.1 H (11.5-15.5) % Neutrophils # 12.2 H (1.3-7.7) k/uL Lymphocytes # 0.2 L (1.0-4.8) k/uL ABG pH (7.35-7.45) ABG pCO2 (35-45) mmHg ABG pO2 (83-108) mmHg ABG HCO3 (21-25) mmol/L ABG Total CO2 (19-24) mmol/L Chloride (98-107) mmol/L Carbon Dioxide (22-30) mmol/L BUN (9-20) mg/dL Creatinine (0.66-1.25) mg/dL Glucose (74-99) mg/dL POC Glucose (mg/dL) 123 H (75-99) mg/dL Calcium (8.4-10.2) mg/dL Crossmatch 02/11/21 02/11/21 02/11/21 Range/Units 03:50 05:39 09:03 WBC (3.8-10.6) k/uL RBC (4.30-5.90) m/uL Hgb (13.0-17.5) gm/dL Hct (39.0-53.0) % MCHC (31.0-37.0) g/dL RDW (11.5-15.5) % Neutrophils # (1.3-7.7) k/uL Lymphocytes # (1.0-4.8) k/uL ABG pH 7.57 H* (7.35-7.45) ABG pCO2 62 H (35-45) mmHg ABG pO2 81 L (83-108) mmHg ABG HCO3 39 H 38 H (21-25) mmol/L ABG Total CO2 41 H 39 H (19-24) mmol/L Chloride 96 L (98-107) mmol/L Carbon Dioxide 38 H (22-30) mmol/L BUN 72 H (9-20) mg/dL Creatinine 1.87 H (0.66-1.25) mg/dL Glucose 128 H (74-99) mg/dL POC Glucose (mg/dL) (75-99) mg/dL Calcium 8.2 L (8.4-10.2) mg/dL Crossmatch Assessment and Plan Assessment: #1. Acute hypoxic respiratory failure secondary to COVID-19 pneumonia, not vaccinated. Symptoms started on 01/17, patient took ivermectin on outpatient basis, refused Remdesivir currently on Decadron is also on prophylactic anticoagulation, he is on COVID-19 cocktail. Received Baricitinib, on 1217, patient was transferred to the ICU and he was intubated. Remains intubated and mechanically ventilated since 02/02. He is on assist control mode of mechanical ventilation. Sedated Patient is now on a combination of Baricitinib and Decadron. He was found to have bilateral lower extremity DVT. Started on anticoagulations therapy however the patient now developed hematuria and I have recommended stopping Lovenox and all anticoagulation therapy for the time being until a decision is made by urology and if there is an acute contraindication to restarting anticoagulations therapy, the patient may need IVC filter placement. #2. Elevated inflammatory markers related to the above, improving. #3. Elevated transaminases, improving #4. History of COPD with diffuse centrilobar emphysema #5. Former smoker #6. Coronary artery disease with previous coronary artery bypass grafting 4 in 2018 #7. Mitral valve repair #8. Crohn's disease #9. Hypertension #10. History of systolic CHF #11 new-onset atrial fibrillation on 02/07/21, started patient on amiodarone. May have to consider placing the patient back on IV amiodarone since multiple attempts have been made to place an orogastric tube, and these have failed. Patient is to be seen by general surgery for EGD and orogastric tube placement today. #12 acute blood loss anemia, exact source is not clear, there is no evidence of active bleeding, however considering the hemoglobin is down to 6.7 we'll transfuse with 1 unit of packed RBCs today. #13 gross hematuria, to be addressed today again by urology, in the meantime we will hold anticoagulation therapy. #14 right-sided pneumothorax/barotrauma/secondary to COVID-19 infection/pneumonia. Requiring chest tube placement on 02/11/21. #15 acute kidney injury, being addressed by nephrology on the case. #[address] orogastric tube although multiple attempts have been made even with the use of a glide scope, general surgery to evaluate. In the meantime we'll start the patient on TPN. Recommendation: Continue sedation but patient should have intermittent sedation holidays on a daily basis for assessment of mental status. Continue ventilatory support. Patient is now on assist control rate of 36 tidal volume 600 although he is getting only 400 FiO2 is 50% PEEP is down to 6. Continue COVID-19 cocktail as above. Continue amiodarone. May have to switch to IV amiodarone however this is being addressed by cardiology. Start patient on TPN and central ventral feeding since there is no orogastric tube today. Urology to evaluate for hematuria. In the meantime continue to hold Lovenox. Consider IVC filter placement if there is absolute contraindication to anticoagulation therapy. Patient did have DVT. Continue to monitor renal profile and give the patient Lasix intermittently. Continue GI prophylaxis. Nephrology is evaluating his renal status. Continue to monitor inflammatory markers. CODE STATUS is now DO NOT RESUSCITATE. Patient is extremely quite ill, and he has multiple issues to deal with as noted above. We will continue to follow. Critical care time is over 30 minutes, not including the time spent on procedures. Patient had a left radial arterial line placed today. Time with Patient: Greater than 30
[2021-02-11] MEDS: SODIUM CHLORIDE 0.9% 1,000 ML IV SCH (12:00)
--- NOTE | 2021-02-11 12:38 | PN ---
PROGRESS NOTE Patient is seen for followup for acute kidney injury. His renal function has been slowly worsening over the last couple of days. Creatinine today is 1.8. Urine output has been at about 100 mL/hour. Lasix was discontinued today, which is appropriate. Blood pressure is 104 to 120 mmHg systolic. Patient remains on the vent. He had a chest tube placed today on the right side for a pneumothorax. FiO2 is down to 50%. On examination today, patient is sedated. He is on the vent. Blood pressure 121/73, heart rate 50 per minute. He is afebrile. Examination of the lower extremities shows no evidence of edema. Abdomen is soft, nontender. 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 Labs show sodium 143, potassium 4.6, chloride 96. CO2 is 38, BUN 72, creatinine 1.87, hemoglobin 9.7. ASSESSMENT: 1. Acute kidney injury, most likely prerenal. Agree with discontinuation of Lasix. Will give a fluid bolus and start IV hydration. 2. Acute hypoxic respiratory failure from COVID pneumonia. 3. COVID pneumonia. 4. Metabolic alkalosis associated with diuresis, currently maintained on Diamox. Lasix is now discontinued. 5. Anemia with significant drop in hemoglobin. No active bleeding noted currently. Status post packed RBCs transfusion done yesterday. PLAN: Continue with Diamox. Agree with discontinuation of Lasix. Fluid bolus x1 and maintain IV hydration. Repeat labs in a.m. MMLAYLAL / ANDRESN: [id number] /
[2021-02-11 12:40] LABS: Glucose,Whole Blood 147 mg/dL (75-99)
[2021-02-11 14:24] LABS: Magnesium 2.5 mg/dL (1.6-2.3); Phosphorus 5.5 mg/dL (2.5-4.5)
--- NOTE | 2021-02-11 14:48 | P.PN ---
Subjective Progress Note Date: 02/11/21 CHIEF COMPLAINT: : Coronavirus vent dependent respiratory failure HISTORY OF PRESENT ILLNESS: The patient is a 75-year-old male admitted with hypoxia and respiratory failure due to coronavirus infection. Patient had multiple comorbidities including Crohn's disease, coronary artery disease, mitral valvular replacement. He had episodes of acute hematuria today. Per discussion with his nurse, patient had multiple attempts of placement of a orogastric versus nasogastric tube without success. Patient is not on TPN. Patient had moderate secretions from his orogastric tube prior to its removal. ROS: No fevers or chills. No new chest pain. PHYSICAL EXAM: VITAL SIGNS: Reviewed CONSTITUTIONAL: Well developed and in no acute distress. EYES: Conjuctivae without sclera icterus. Extraocular movements grossly intact. HEAD, EARS, NOSE, THROAT: Moist buccal mucosa. Head is atraumatic, normoce phalic. No nasal drainage. Orotracheal tube intact. RESPIRATORY: On full mechanical ventilatory management CARDIOVASCULAR: Palpable 2+ radial pulses. ABDOMEN: No peritonitis. MUSCULOSKELETAL: No clubbing. No cyanosis. SKIN: Well perfused. NEUROLOGIC: No focal or lateralizing signs. PSYCH: Intubated and sedated CLINICAL LABS: Reviewed. WBC elevated at 12.7. Hemoglobin down 9.7. ASSESSMENT: 1. Acute hypoxic respiratory failure and mechanical ventilation 2. COVID-19 pneumonia 3. Protein malnutrition. 4. Coagulopathy 5. Acute hematuria PLAN: 1. Recommend start of TPN due to difficulty placing orogastric and nasogastric tube. 2. May benefit from upper endoscopy for cause of esophageal obstruction for placement of oral or nasogastric tube. 3. Patient currently on therapeutic Lovenox 80 mg twice a day with acute hematuria. Recommend monitor hemoglobin. 4. At this time, placement of gastrostomy tube on hold due to acute coagulopathy and bleeding. Objective - Vital Signs Vital signs: Vital Signs Temp 97.6 F 02/11/21 12:00 Pulse 47 L 02/11/21 14:00 Resp 36 H 02/11/21 14:00 BP 139/80 02/11/21 14:00 Pulse Ox 94 L 02/11/21 14:00 Intake & Output 02/10/21 02/11/21 02/11/21 18:59 06:59 18:59 Intake Total 845.565 630.007 975.611 Output Total 855 850 695 Balance -9.435 -219.993 280.611 Weight 78.7 kg 78.7 kg Intake: IV 178 299 326 Pressure Bag 0.9 sodium 18 39 21 chloride Sodium Chloride 0.9% 1, 160 260 305 000 ml @ 75 mls/hr IV . [id number] [facility] Rx#:[id number] Intake, IV Titration 357.565 331.007 649.611 Amount Norepinephrine 4 mg In 64.24 85.116 28.227 Sodium Chloride 0.9% 250 ml @ 0.05 MCG/KG/MIN 13. 826 mls/hr IV .[id number] [facility] Rx#:[id number] Sodium Chloride 0.9% 500 500 ml 500 ml @ 999 mls/hr IV .Q31M [facility] Rx#:[id number] fentaNYL (PF). 1,000 mcg 100 84.607 In Sodium Chloride 0.9% 80 ml @ 1 MCG/KG/HR 7.4 mls/hr IV .[id number] [facility] Rx #:[id number] propofoL 1,000 mg In 193.325 161.284 121.384 Empty Bag 1 bag @ Titrate IV .Q0M [facility] Rx#: [id number] Tube Feeding 0 Blood Product 310 Rc As-1 Unit 310 [id number] Output: Chest Tube Drainage 60 Right Lower 60 Urine 855 850 635 Other: Voiding Method Indwelling Catheter Indwelling Catheter Indwelling Catheter ABP, PAP, CO, CI - Last Documented Arterial Blood Pressure 135/54 - Labs CBC & Chem 7: 02/11/21 03:50 02/11/21 03:50 Labs: Abnormal Lab Results - Last 24 Hours (Table) 02/10/21 02/10/21 02/11/21 Range/Units 17:38 19:56 00:41 WBC 13.6 H (3.8-10.6) k/uL RBC 3.28 L (4.30-5.90) m/uL Hgb 9.5 L D (13.0-17.5) gm/dL Hct 31.3 L (39.0-53.0) % MCHC 30.4 L (31.0-37.0) g/dL RDW 15.7 H (11.5-15.5) % Neutrophils # (1.3-7.7) k/uL Lymphocytes # (1.0-4.8) k/uL ABG pH (7.35-7.45) ABG pCO2 (35-45) mmHg ABG pO2 (83-108) mmHg ABG HCO3 (21-25) mmol/L ABG Total CO2 (19-24) mmol/L Chloride (98-107) mmol/L Carbon Dioxide (22-30) mmol/L BUN (9-20) mg/dL Creatinine (0.66-1.25) mg/dL Glucose (74-99) mg/dL POC Glucose (mg/dL) 109 H 123 H (75-99) mg/dL Calcium (8.4-10.2) mg/dL Phosphorus (2.5-4.5) mg/dL Magnesium (1.6-2.3) mg/dL 02/11/21 02/11/21 02/11/21 Range/Units 03:50 03:50 03:50 WBC 12.7 H (3.8-10.6) k/uL RBC 3.43 L (4.30-5.90) m/uL Hgb 9.7 L (13.0-17.5) gm/dL Hct 33.1 L (39.0-53.0) % MCHC 29.2 L (31.0-37.0) g/dL RDW 16.1 H (11.5-15.5) % Neutrophils # 12.2 H (1.3-7.7) k/uL Lymphocytes # 0.2 L (1.0-4.8) k/uL ABG pH (7.35-7.45) ABG pCO2 (35-45) mmHg ABG pO2 (83-108) mmHg ABG HCO3 (21-25) mmol/L ABG Total CO2 (19-24) mmol/L Chloride 96 L (98-107) mmol/L Carbon Dioxide 38 H (22-30) mmol/L BUN 72 H (9-20) mg/dL Creatinine 1.87 H (0.66-1.25) mg/dL Glucose 128 H (74-99) mg/dL POC Glucose (mg/dL) (75-99) mg/dL Calcium 8.2 L (8.4-10.2) mg/dL Phosphorus 5.5 H (2.5-4.5) mg/dL Magnesium 2.5 H (1.6-2.3) mg/dL 02/11/21 02/11/21 02/11/21 Range/Units 05:39 09:03 11:32 WBC (3.8-10.6) k/uL RBC (4.30-5.90) m/uL Hgb (13.0-17.5) gm/dL Hct (39.0-53.0) % MCHC (31.0-37.0) g/dL RDW (11.5-15.5) % Neutrophils # (1.3-7.7) k/uL Lymphocytes # (1.0-4.8) k/uL ABG pH 7.57 H* (7.35-7.45) ABG pCO2 62 H (35-45) mmHg ABG pO2 81 L (83-108) mmHg ABG HCO3 39 H 38 H (21-25) mmol/L ABG Total CO2 41 H 39 H (19-24) mmol/L Chloride (98-107) mmol/L Carbon Dioxide (22-30) mmol/L BUN (9-20) mg/dL Creatinine (0.66-1.25) mg/dL Glucose (74-99) mg/dL POC Glucose (mg/dL) 127 H (75-99) mg/dL Calcium (8.4-10.2) mg/dL Phosphorus (2.5-4.5) mg/dL Magnesium (1.6-2.3) mg/dL 02/11/21 Range/Units 12:38 WBC (3.8-10.6) k/uL RBC (4.30-5.90) m/uL Hgb (13.0-17.5) gm/dL Hct (39.0-53.0) % MCHC (31.0-37.0) g/dL RDW (11.5-15.5) % Neutrophils # (1.3-7.7) k/uL Lymphocytes # (1.0-4.8) k/uL ABG pH (7.35-7.45) ABG pCO2 (35-45) mmHg ABG pO2 (83-108) mmHg ABG HCO3 (21-25) mmol/L ABG Total CO2 (19-24) mmol/L Chloride (98-107) mmol/L Carbon Dioxide (22-30) mmol/L BUN (9-20) mg/dL Creatinine (0.66-1.25) mg/dL Glucose (74-99) mg/dL POC Glucose (mg/dL) 147 H (75-99) mg/dL Calcium (8.4-10.2) mg/dL Phosphorus (2.5-4.5) mg/dL Magnesium (1.6-2.3) mg/dL Assessment and Plan (1) Hematuria due to acute cystitis Current Visit: Yes Status: Acute Code(s): N30.01 - ACUTE CYSTITIS WITH HEMATURIA SNOMED Code(s): 042112156002245 (2) Pneumonia due to COVID-19 virus Current Visit: Yes Status: Acute Code(s): U07.1 - COVID-19; J12.82 - PNEUMONIA DUE TO CORONAVIRUS DISEASE 2019 SNOMED Code(s): 928916010090426673 (3) Atrial fibrillation Current Visit: No Status: Acute Code(s): I48.91 - UNSPECIFIED ATRIAL FIBRILLATION SNOMED Code(s): 53807324 (4) COPD (chronic obstructive pulmonary disease) with emphysema Current Visit: No Status: Acute Code(s): J43.9 - EMPHYSEMA, UNSPECIFIED SNOMED Code(s): 62396598 (5) Valvular heart disease Current Visit: No Status: Acute Code(s): I38 - ENDOCARDITIS, VALVE UNSPECIFIED SNOMED Code(s): 317034 (6) History of Crohn's disease Current Visit: No Status: Chronic Code(s): Z87.19 - PERSONAL HISTORY OF OTHER DISEASES OF THE DIGESTIVE SYSTEM SNOMED Code(s): 728575048857810 (7) Esophageal obstruction Current Visit: Yes Status: Acute Code(s): K22.2 - ESOPHAGEAL OBSTRUCTION SNOMED Code(s): 246058450
[2021-02-11] MEDS ORDERED: MVI, ADULT NO.4 WITH VIT K 10 ML, TRACE (CONC-1ML/DOSE) 1 ML, SODIUM CHLORIDE 4MEQ/ML V... IV SCH ×6 (16:00)
[2021-02-11 17:27] LABS: Glucose,Whole Blood 152 mg/dL (75-99)
--- NOTE | 2021-02-11 20:03 | P.PN ---
Progress Note - Text Progress Note Date: 02/11/21 Hospital course: 74-year-old patient who follows with Dr. Mauricio Keith. Tonic stable medical conditions include hypertension, Crohn's disease, nephrolithiasis, BPH, hypertension, tinnitus, COPD, CAD with bypass. EF of 20-25%. Presented with shortness of breath. Diagnosed with COVID 19 on January 18 symptoms starting 1 day before. He was found to be hypoxic at home. Upon arrival he was 85%. Patient declined treatment with Remdesivir. Patient had been taking ivermectin as outpatient. She requested this to be continued. This was declined by the admitting team as this was not approved treatment. Patient not vaccinated against COVID. She did with subcu Lovenox and dexamethasone. January 24: Patient feeling better. On 3 L nasal cannula. Oral intake fair. Up in a bed. Slight cough. January 25: Sitting up in a recliner. Tired. Has some chest tightness. 92% on 4 L. Oral intake good. January 26: Bit more short of breath. Oxygen requirement: Up to 15 L. Had low-grade fever. Eating about 50-75%. Tired. Up in a chair. January 27: Short of breath. Sitting at the edge of the bed. 15 L nasal cannula. Decreased appetite. January 28: Laying in bed. Tired. Short of breath. On 15 L nonrebreather. Oral intake fair. Started on Baricitinib by pulmonary January 29: Patient is become more short of breath. Placed on BiPAP. Decreased oral intake. Tired. On Baricitinib, dexamethasone. January 30: Sitting up in a chair. Using BiPAP. Short of breath. Decreased oral intake. On Baricitinib) dexamethasone. Acute PE on CT chest. Started on eliquis January 31: Sitting at the edge of the bed. BiPAP. Short of breath. Tired. On eliquis, on Baricitinib, dexamethasone. February 01: Laying in bed. Short of breath. BiPAP. Tired. On Baricitinib, dexamethasone, eliquis. Eating reasonably well. February 02: Rather tired short of breath BiPAP 100%. On dexamethasone, eliquis February 03: ICU: Intubated yesterday. Prone position. Ventilator FiO2 70 PEEP of 12. Drips included propofol and Nimbex. February 08: ICU: Ventilator FiO2 52 PEEP of 14. 2 feeding at 30 mL an hour. Went into an episode of rapid A. fib last night. Given IV amiodarone. Current drips include norepinephrine, Nimbex, propofol, fentanyl February 09: ICU: Ventilator: FiO2 40 and a PEEP of 14. 2 feeding at 30 mL an hour. Drips include fentanyl, propofol. Atrial fibrillation controlled February 10: ICU: On the ventilator. FiO2 15 a PEEP of 14. Drips included propofol and fentanyl. Atrial fibrillation controlled. Earlier hemoglobin dropped to 6.7. No evidence of bleeding. 1 unit of blood ordered. February 11: ICU: Ventilator 50/6. Patient developed significant hematuria overnight. Neurology consulted. Patient developed a spontaneous right-sided pneumothorax. Chest tube placed. Trouble with OG tube placement. Review of systems: Patient sedated Active Medications Acetaminophen (Acetaminophen Tab 325 Mg Tab) 650 mg PO Q6HR PRN PRN Reason: Fever and/ or Pain Last Admin: 02/02/21 06:07 Dose: 650 mg Documented by: Acetazolamide Sodium (Acetazolamide Sodium 500 Mg Vial) 250 mg IV Q12HR [facility] Last Admin: 02/11/21 08:57 Dose: 250 mg Documented by: Albuterol Sulfate (Albuterol Hfa Inhaler) 2 puff INHALATION RT-QID [facility] Last Admin: 02/11/21 15:53 Dose: 2 puff Documented by: Albuterol Sulfate (Albuterol Hfa Inhaler) 4 puff INHALATION RT-QID PRN PRN Reason: Shortness Of Breath Or Wheezing Amiodarone HCl (Amiodarone 200 Mg Tab) 200 mg PO TID [facility] Stop: 02/15/21 11:16 Last Admin: 02/11/21 15:18 Dose: Not Given Documented by: Amiodarone HCl (Amiodarone 200 Mg Tab) 200 mg PO BID [facility] Artificial Tears (Artificial Tears-Hypromellose Drops 15 Ml Btl) 2 drops BOTH EYES Q4HR [facility] Last Admin: 02/11/21 17:10 Dose: 2 drops Documented by: Ascorbic Acid (Ascorbic Acid 500 Mg Tab) 2,000 mg PO DAILY [facility] Last Admin: 02/11/21 09:03 Dose: Not Given Documented by: Chlorhexidine Gluconate (Chlorhexidine Gluconate 15 Ml Cup) 15 ml MUCOUS MEM BID [facility] Last Admin: 02/11/21 09:24 Dose: 15 ml Documented by: Cholecalciferol (Cholecalciferol 125 Mcg (5000 Iu) Tablet) 125 mcg PO DAILY [facility] Last Admin: 02/11/21 09:03 Dose: Not Given Documented by: Cyanocobalamin (Cyanocobalamin 500 Mcg Tab) 4,000 mcg PO DAILY [facility] Last Admin: 02/11/21 09:03 Dose: Not Given Documented by: Dexamethasone Sodium Phosphate (Dexamethasone Sod Phosphate 10 Mg/Ml 1 Ml Vial) 6 mg IVP DAILY [facility] Last Admin: 02/11/21 09:23 Dose: 6 mg Documented by: Enoxaparin Sodium (Enoxaparin 80 Mg/0.8 Ml Syringe) 80 mg SQ BID [facility] Last Admin: 02/11/21 09:15 Dose: Not Given Documented by: Propofol 1,000 mg/ IV Solution 100 mls @ 0 mls/hr IV .Q0M [facility]; Protocol Last Admin: 02/11/21 18:49 Dose: 25 mcg/kg/min, 11.805 mls/hr Documented by: Cisatracurium Besylate 200 mg/ (Sodium Chloride) 200 mls @ 8.709 mls/hr IV .Q2 2H58M [facility]; Protocol Last Admin: 02/11/21 09:05 Dose: Not Given Documented by: Norepinephrine Bitartrate 4 mg (/ Sodium Chloride) 254 mls @ 13.826 mls/hr IV .[id number] [facility]; Protocol Last Titration: 02/11/21 11:30 Dose: 0 mcg/kg/min, 0 mls/hr Documented by: Sodium Chloride (Saline 0.9%) 1,000 mls @ 75 mls/hr IV .[id number] [facility] Last Admin: 02/11/21 12:00 Dose: 75 mls/hr Documented by: Fentanyl Citrate 1,000 mcg/ (Sodium Chloride) 100 mls @ 7.4 mls/hr IV .[id number] [facility]; Protocol Last Admin: 02/11/21 18:49 Dose: 1 mcg/kg/hr, 7.4 mls/hr Documented by: Parenteral Vitamin Supplement 10 ml/ Zinc/Copper/Manganese/Selenium 1 ml/ Sodium Chloride 32 meq/ Potassium Chloride 20 meq/ Calcium Gluconate 1 gm/Amino Acids/Dextrose 1,039 mls @ 30 mls/hr IV .Q24H [facility] Stop: 02/12/21 15:59 Last Admin: 02/11/21 17:10 Dose: 30 mls/hr Documented by: Parenteral Vitamin Supplement 10 ml/ Zinc/Copper/Manganese/Selenium 1 ml/ Sodium Chloride 32 meq/ Potassium Chloride 20 meq/ Calcium Gluconate 1 gm/Amino Acids/Dextrose 1,039 mls @ 70 mls/hr IV .BY DURATION [facility] Sodium Chloride 32 meq/Potassium Chloride 20 meq/Calcium Gluconate 1 gm/ Amino Acids/Dextrose 1,028 mls @ 70 mls/hr IV .BY DURATION [facility] Insulin Aspart (Insulin Aspart (Novolog) 100 Unit/Ml Vial) 0 unit SQ Q6H [facility]; Protocol Last Admin: 02/11/21 18:56 Dose: 2 unit Documented by: Tamsulosin HCl (Tamsulosin 0.4 Mg Cap.Er.24h) 0.4 mg PO BID [facility] Last Admin: 02/11/21 09:03 Dose: Not Given Documented by: Zinc Sulfate (Zinc Sulfate 220 Mg Cap) 220 mg PO DAILY [facility] Last Admin: 02/11/21 09:03 Dose: Not Given Documented by: On examination: VITAL SIGNS: 97.6, 49, 30, 121/73, 94% on the ventilator GENERAL APPEARANCE: , sedated, intubated, right-sided chest tube. Bloody urine in the Mary catheter RESPIRATORY: Respiratory effort increased. PSYCHIATRY: Unable to assess, sedated Rest of the exam per pulmonary and nursing INVESTIGATIONS, reviewed in the clinical context: February 11: White count 12.7 hemoglobin 9.7 platelets 432 potassium 4.6 BUN 72 creatinine 1.8 seventh. Chest x-ray shows right-sided pneumothorax February 10: WBC 10.6 hemoglobin 6.7 platelets. Potassium 4.4 BUN 72 creatinine 1.4 to February 09: White count 9.5 hemoglobin 8.7 platelets 374 ABG: PCO2 35 pO2 56 potassium 5 creatinine 1.07. Chest x-ray: Bilateral infiltrates February 08: WBC 11.5 hemoglobin 8 platelets 450 potassium 4.7 BUN 63 creatinine 1.47 Doppler ultrasound [February 05] DVT in the left popliteal vein and right lower extremity superficial vein February 03: W BC 21.5 hemoglobin 8.8 platelets 267 ABG: PH 7.25 pCO2 34 pO2 93 potassium 4.6 creatinine 1.39 February 02: White count 18.4 hemoglobin 9. ABG: PH 7.5 pO2 58 creatinine 1.18. Chest x-ray: Worsening February 01: White count 16.7 hemoglobin 9.7 d-dimer greater than 34 BUN 45 creatinine 1.27 January 31: WBC 13.1 COVID 10.3 d-dimer greater than 34 potassium 4.5 creatinine 1.26 CRP 3.5 January 30: WBC 10.4 hemoglobin 9.8 platelets 145 potassium 4.5 creatinine 1.4. AST [address] angiogram for PE [January 30] new Pasia occlusive embolism segmental bronchus right lower lobe with segmental extension. Doppler ultrasound [January 29]: Superficial thrombosis in the right lesser saphenous vein. January 29: D-dimer greater than 34 potassium 4.4 BUN 67 creatinine 1.61 AST 174 ALT 73 January 28: WBC 10.2 hemoglobin 11.4 platelets 154 d-dimer greater than 34 sodium 136 potassium 4.9. 43 creatinine 1.29 January 27: WBC 11.8 hemoglobin 10.5 January 26: White count 11.8 hemoglobin 11.5 d-dimer 12.6 CRP 7.3 White count 5.9 hemoglobin 12.3 platelets 162 d-dimer 0.93 potassium 4.1 creatinine 0.86 CRP 4.4 Admission labs: Pro-calcitonin 0.04 Coronavirus [PCR]: Detected D-dimer 0.83 EKG tracing personally reviewed by me-sinus bradycardia. Rate 55 Chest x-ray: biLateral infiltrates Assessment and plan: -Bilateral COVID 19 pneumonitis: Not improving Dexamethasone. Subcu Lovenox. (declined Remdesivir. patient was taking ivermectin at home). Baricitinib started January 28 -Spontaneous right-sided pneumothorax on February 11 Right-sided chest tube placed -Acute severe hematuria. Follow H&H. Urology consulted -Acute pulmonary embolism, along with DVT: Lovenox subcu -Septic shock:better Received IV levo fed -Acute hypoxic respiratory failure from COVID 19: Not improving Intubated February 02. On the ventilator -Essential hypertension: Currently blood pressure is running low -Chronic Crohn's disease Pentasa 1000 milligrams 3 times a day - nephrolithiasis Follow clinically -Acute kidney injury. Possibly ATN from COVID 19 causing infection and hypertension Follow nephrology -Paroxysmal atrial fibrillation with episodes of rapid ventricular rate Amiodarone -BPH Flomax 0.4 mg twice a day -COPD in a previous smoker Pulmicort -Chronic tinnitus with hearing impairment -CAD with bypass Aspirin, beta billy, Lipitor -Hyperlipidemia Lipitor 40 mg daily -Acute hepatitis: Improving hold Lipitor. Follow LFT -Full code -TPN and lipids being started Urology consulted for hematuria. Surgeries planning for EGD. Pneumothorax a right-sided chest tube. TPN and lipids ordered. Prognosis guarded
[2021-02-12] MEDS: INSULIN ASPART (NovoLOG) 100 UNIT/ML VIAL SQ SCH ×5 (00:48→23:13)
[2021-02-12] MEDS: NOREPINEPHRINE 4 MG in SODIUM CHLORIDE 0.9% 250 ML IV SCH ×2 (00:48→18:54)
[2021-02-12] MEDS: ARTIFICIAL TEARS-HYPROMELLOSE DROPS 15 ML BTL BOTH EYES SCH ×7 (00:49→23:13)
[2021-02-12] MEDS: SODIUM CHLORIDE 0.9% 1,000 ML IV SCH ×3 (00:50→18:54)
[2021-02-12 04:45] LABS: Ionized Calcium 4.7 mg/dL (4.5-5.3)
[2021-02-12 04:54] LABS: Albumin 2.2 g/dL (3.5-5.0); Calcium 7.6 mg/dL (8.4-10.2); Magnesium 2.5 mg/dL (1.6-2.3); Phosphorus 3.5 mg/dL (2.5-4.5); Potassium 3.5 mmol/L (3.5-5.1); Total Bilirubin 0.7 mg/dL (0.2-1.3); Total Protein 4.9 g/dL (6.3-8.2)
[2021-02-12] MEDS: fentaNYL (PF). 1,000 MCG in SODIUM CHLORIDE 0.9% 80 ML IV SCH (05:25)
[2021-02-12 05:26] LABS: Glucose,Whole Blood 214 mg/dL (75-99)
[2021-02-12 05:39] LABS: ABG Base Excess 6.6 mmol/L; ABG HCO3 30 mmol/L (21-25); ABG Oxygen Saturation 97.3 % (94-97); ABG PCO2 40 mmHg (35-45); ABG PH 7.49 (7.35-7.45); ABG PO2 86 mmHg (83-108); ABG TCO2 31 mmol/L (19-24); Allen Test Performed? Yes
[2021-02-12] MEDS ORDERED: Potassium Replacement Protocol 1 EACH MISC MISCELLANE PRN (06:44)
[2021-02-12] MEDS: POTASSIUM CHLORIDE 20 MEQ in SODIUM CHLORIDE 0.9% 100 ML IVPB SCH ×2 (07:16→09:39)
[2021-02-12] MEDS ORDERED: POTASSIUM CHLORIDE 20 MEQ in WATER FOR INJECTION 1 100ML.BAG IVPB SCH (07:30)
--- NOTE | 2021-02-12 07:56 | XR ---
EXAMINATION TYPE: XR chest 1V portable DATE OF EXAM: 02/12/2021 COMPARISON: 02/11/2021 HISTORY: SOB, Follow Up FINDINGS: Indwelling tubes and catheters are unchanged. Right-sided chest tube is again noted. Right-sided pneu mothorax seen previously appears smaller in size and is estimated at 10%. Coarse reticulonodular infiltrates persist bilaterally. Stable appearance of the cardio-mediastinal structures at this time. Pleural effusion unchanged. IMPRESSION: 1. Stable coarsened reticulonodular infiltrates bilaterally. Right-sided pneumothorax is less conspic uous and appears smaller in size and is estimated at 10% at this time. Clinical correlation and follo w up until resolution is recommended.
[2021-02-12] MEDS: CHOLECALCIFEROL 125 MCG (5000 IU) TABLET PO SCH (08:08)
[2021-02-12] MEDS: ASCORBIC ACID 500 MG TAB PO SCH (08:08)
[2021-02-12] MEDS: AMIODARONE 200 MG TAB PO SCH ×3 (08:08→19:56)
[2021-02-12] MEDS: CYANOCOBALAMIN 500 MCG TAB PO SCH (08:08)
[2021-02-12] MEDS: ZINC SULFATE 220 MG CAP PO SCH (08:08)
[2021-02-12] MEDS: TAMSULOSIN 0.4 MG CAP.ER.24H PO SCH ×2 (08:08→19:56)
[2021-02-12] MEDS: CISATRACURIUM 200 MG in SODIUM CHLORIDE 0.9% 180 ML IV SCH ×2 (08:09→20:03)
[2021-02-12] MEDS: CHLORHEXIDINE GLUCONATE 15 ML CUP MUCOUS MEM SCH ×2 (08:21→20:21)
[2021-02-12] MEDS: DEXAMETHASONE SOD PHOSPHATE 10 MG/ML 1 ML VIAL IVP SCH (08:21)
[2021-02-12] MEDS: ALBUTEROL HFA INHALER INHALATION SCH ×4 (08:29→19:18)
[2021-02-12] MEDS ORDERED: CLEVIDIPINE BUTYRATE 25 MG/50 ML VIAL IV ONE (10:48)
[2021-02-12] MEDS: CLEVIDIPINE BUTYRATE 25 MG in EMPTY BAG 1 BAG IV SCH ×3 (11:01→17:24)
[2021-02-12] MEDS: ENOXAPARIN 80 MG/0.8 ML SYRINGE SQ SCH ×2 (11:03→20:21)
[2021-02-12 11:30] LABS: Glucose,Whole Blood 161 mg/dL (75-99)
--- NOTE | 2021-02-12 12:10 | P.PN ---
Subjective Progress Note Date: 02/12/21 Principal diagnosis: Acute hypoxic respiratory failure secondary to COVID-19 pneumonia This is a 75-year-old male patient who follows with Dr. Mauricio Keith is his primary care provider. He has a history of coronary artery disease with previous coronary artery bypass grafting, mitral valve replacement, hypertension, hyperlipidemia, chronic obstructive pulmonary disease, former smoker, Crohn's disease. On January 17 the patient started having symptoms of fever cough congestion weakness and was tested for COVID-19 on January 18. He found out his results on January 21 and was told to stay home and rest unless his symptoms worsened. He was given doxycycline and prednisone 20 mg twice a day. His brought him into the emergency room here today as his oxygen levels were dropping at home. Chest x-rays revealing patchy bilateral interstitial pneumonia with underlying COPD. White count 2.8. Hemoglobin 12.9. Platelets 149. Lymphocytes 0.2. D-dimer 0.83. Sodium 133. Potassium 4.7. Creatinine 1.06. Glucose 154. AST 122. ALT 75. LDH 1082. C-reactive protein 6.4. Chronic virus by PCR positive. The patient is not vaccinated. He is seen today in the emergency room. Awake and alert in no acute distress. Sitting up on a stretcher. He is 85% O2 saturation on room air. 93% on 2 L per nasal cannula. Afebrile. Hemodynamically stable. He's been initiated on Lovenox and vitamin supplements. He will be started on Decadron. We discussed with him the possibility for Remdesivir which he is reluctant to receive. His who is sitting next to him is also having symptoms and she plans to go get tested today. The patient is seen today 01/24/2021 in follow-up on the observation unit. He is currently sitting up in bed. Awake and alert in no acute distress. He is feeling quite a bit better. Feeling stronger today. He did decline Remdesivir. He has been maintained on Lovenox, Decadron, vitamin supplements. He is currently maintaining O2 saturation in the low 90s on 3 L/m per nasal cannula. He's been afebrile. Hemodynamically stable. Chest x-ray continues to show increased bilateral infiltrates. White count 5.9. Hemoglobin 12.3. D-dimer 0.93. Sodium 134. Potassium 4.1. Creatinine 0.86. Glucose 158. AST 87. ALT 62. LDH 81. C-reactive protein 4.4. On 01/25/2021 patient seen in follow-up on medical surgical floor. He is awake and alert, in no acute distress, breathing comfortably, although still has a persistent cough, does have exertional dyspnea. He is currently on 4 L of oxygen and his pulse ox is borderline between 87-92%. No fever or chills, blood pressure is been stable, patient has been ambulate into the bathroom. Today's chest x-ray shows progressive changes in the lungs with increasing bilateral i nfiltrates. Patient remains on Decadron 6 mg daily, prophylactic Lovenox, he is on inhaled [place] dilators, he is on COVID-19 vitamins. His labs from yesterday showed a d-dimer of 0.93, electrolytes and renal profile were fairly unremarkable, his AST and ALT were improving and were down to 87 and 62 respectively, his inflammatory markers showed a trend for improvement with LDH at 881, and CRP of 4.4. Reevaluated today on 01/26/2021, patient remains on the regular medical floor, his condition got a bit worse yesterday, he is now on 15 L nasal cannula high flow, and his O2 saturation is ranging between 90 up to 96%. However the patient does not seem to be in any distress, he is afebrile with a temp of 97 9 he had a T-max of 100.4 last night. Vital signs are stable. Blood pressure 113/43. Previous count is 11.8 hemoglobin is 11.5, d-dimer went up to 12.66, however workup for pulmonary embolism and venous Doppler came back negative yesterday last night. Patient is on the COVID-19 cocktail, he refused taking remdesivir when he qualified, he is on Lovenox at 40 mg subcu daily, he is also on vitamin D, vitamin C, zinc, and he is on Decadron 6 mg by mouth daily. Evaluated today on 02/07/2021, patient remains in the ICU, intubated and mechanically ventilated. He is presently on assist control rate of 30 tidal volume 420 FiO2 50% PEEP of 14. ABG showed a pO2 of 60 pCO2 of 71 pH of 7.39. A shunt is on propofol at 14 Nimbex at 1.5, he is also on Dilaudid when necessary, IV fluid at KVO. His renal profile showed a BUN of 57 creatinine 1.8. While I was evaluating the patient, shortly after the patient developed an episode of atrial fibrillation with RVR, recommended amiodarone to be started as per protocol, and starting amiodarone drip on this patient. Patient is not re ashleigh for any weaning trials at this point specially with his new onset atrial fibrillation with RVR. His electrolytes are normal BUN is 57 creatinine 1.18. She count is 12.4 hemoglobin is 8.1. X-ray continues to show diffuse bilateral infiltrates. Not much of a change or improvement noted. Patient remains on the COVID-19 cocktail. Remains on Decadron 6 mg IV push daily. Lovenox was increased to 80 mg subcu twice a day. Patient is also on Baricitinib. Amiodarone was added today. Reevaluated today on 02/08/21, patient remains in the ICU intubated and mechanically ventilated. He is now on assist control rate of 30 tidal volume 420 FiO2 60% and I cut it down to 50% PEEP is at 14. ABG today showed a pO2 of 60 pCO2 71 pH of 7.39. His electrolytes are normal BUN is 63 creatinine 1.47 WBC count is 11.5 hemoglobin is 8.0. Chest x-ray is not showing much of an improvement, continues to have bilateral infiltrates. Patient is on multiple drips including fentanyl at 1, propofol at 3 0 mcg/kg/m, Nimbex at 1.5 mcg/kg/m amiodarone 0.5 mg/m. Patient is on norepinephrine at 0.03 mcg/kg/m is also on enteral feeding/utilizing Nepro at 32 mL per hour and sputum cultures are normal nondiagnostic. Patient is now on oral amiodarone at 20 mg 3 times a day, and IV amiodarone has been discontinued. Patient is on ascorbic acid, I have discontinued his colazal, and it may confuse the picture because it is known to cause pneumonitis/drug-induced pneumonitis. I kept the patient on Baricitinib, remains on Lovenox 80 mg subcu twice a day specially with his atrial fibrillation and RVR although today he went back to normal sinus rhythm. Patient remains on the COVID-19 cocktail. At this point I don't see any room to wean or extubated the patient, he will remain intubated mechanically ventilated and sedated. I would also keep him paralyzed since the patient is requiring relatively high PEEP, and chest x-ray is not showing much improvement he still requiring relatively high FiO2 it was 60% and I cut it down today to 50% Reevaluated today on 02/09/2021, patient remains in the ICU intubated and mechanically ventilated. He is now on assist control rate of 30 tidal volume 420 FiO2 50% PEEP is 14. ABG is marginal with a pO2 of 56 pCO2 of 75 pH of 7.39. Remains on propofol at 30 mcg/kg/m fentanyl 20 mcg/kg/h Nimbex at 1.5 mcg/kg/m he is off norepinephrine presently he is on enteral feeding and he is on IV fluid at KVO. Chest x-ray continues to show bilateral infiltrates not much of a change in the last 24 hours. Labs including basic metabolic profile and CBC were reviewed, seem to be relatively unremarkable. Today I suggested that we stop Nimbex and try to maintain the patient mostly on propofol and fentanyl if possible, and hopefully the patient couldn't tolerate coming off paralytics. In the meantime the patient remains on the treatment as noted above. Reevaluated today on 02/10/21, patient remains in the ICU, intubated and mechanically ventilated. He is presently on assist control rate of 30 tidal volume 420 FiO2 50% PEEP is down to 14. His ABG showed a pO2 of 64 pCO2 of 66 pH of 7.44. Patient is off Nimbex today, and I have kept him on propofol at 50 mcg/kg/m he is also on fentanyl. At 1 mcg/kg/h. His norepinephrine is down to 0.02 mcg/kg/m. Again his ABG is marginal and no changes were made in his ventilator settings. However I noted that his hemoglobin is down to 6.7 today. No evidence of any active bleeding anywhere, his hemoglobin yesterday was 8.7, and I recommended a unit of packed RBCs to be transfused to this patient today. metabolic profile is normal. WBC count is 10.6 hemoglobin is 6.7. Platelets are 474. Medications-sevilla patient remains on albuterol, amiodarone 200 mg by mouth 3 times a day, ascorbic acid, vitamin D, Peridex, Decadron 6 mg by mouth daily, Lovenox 80 mg subcu twice a day, Lasix 40 mg IV push daily, patient is also on Flomax and on zinc. Reevaluated today on 02/11/21, patient remains intubated and mechanically ventilated. Remains in the ICU. However this morning the patient developed a large right-sided pneumothorax requiring tube thoracostomy. Patient was noted to have significant air leak after the chest tube placement, and had to cut down on his PEEP down to 6, I had to increase his tidal volume to make up for the loss of volume through the chest tube, and I haven't now on FiO2 of 50% PEEP of 6 tidal volume 600 although he is getting about 400 and his rate is at 36. Chest x-ray post chest tube placement showed adequate positioning of the chest tube, and a small residual pneumothorax. Significant expansion of the right lung was noted. Again after the chest tube there was significant amount of air leak and seems to be gradually getting better we made up for the loss of volume by increasing the rate increasing the tidal volume and cutting down the PEEP down to 6. ABG after all these changes showed a pO2 of 81 pCO2 41 pH of 7.57. WBC count today is 4.7 hemoglobin is 9.7. Basic metabolic profile is normal renal functioning is abnormal him a creatinine is up to 1.87 from 1.4 to yesterday. Patient continues to have significant amount of hematuria , to be evaluated by urology in the meantime I'm holding his Lovenox, if urology see the patient and recommends no more anticoagulation therapy, I will done strongly recommend IVC filter placement in this patient. This will be decided upon hopefully later today or definitely in the next 24 hours. In the meantime we'll keep Lovenox and anticoagulations therapy on hold we are still having difficulty with a orogastric tube placement in this patient, general surgery was consulted, and the plan is to start the patient on TPN today, Dr. Rincon we'll arrange for EGD and orogastric tube placement hopefully tomorrow. May have to switch amiodarone to IV form instead of oral form because of no GI access at this point . Today the patient will remain on fentanyl and on propofol and no plans to wean him since we are dealing with many issues including his hematuria, his COVID-19 pneumonia, his right-sided pneumothorax which is a complication of COVID-19 infection and his renal status with worsening renal picture. Reevaluated today on 02/12/21, patient remains in the ICU, intubated and mechanically ventilated. Patient was on assist control rate of 32 tidal volume 400 FiO2 45% and PEEP of 8 and he is on fentanyl at 1 mcg/kg/h and propofol at 25 mcg/kg/m. Patient is sedated, however his ventilatory requirement does not seem to be much, and there is a significant improvement in the air leak noted through the chest tube which was noted yesterday. And I was able to cut down his volume status 400 and kept him on the same rate. As a matter of fact I discontinued all his sedation today and I gave the patient a trial of IMV with pressure support of 10 backup rate of 8 on the IMV. And kept him on a PEEP of 8. Patient was gradually waking up, family is at bedside, and I updated the family on his status. His ABG today showed a pO2 of 86 pCO2 of 40 pH of 7.49, and this was on 50% FiO2. His complete metabolic profile seems to be relatively normal. Electrolytes are normal BUN however is 68 and creatinine is 1.43. If is improved compared to creatinine the last 2 days. Lovenox remains on hold, hematuria subsided, and we continued to have problem with placement of the orogastric tube, no GI coverage, and surgery is of decided whether to proceed with EGD at this point are not. Waiting to hear from surgery although they were notified over 24 hours ago, patient in the meantime is receiving TPN. We will have to make a decision regarding his Lovenox and possibly arrange for the patient to have IVC filter placement if there is going to be absolute contraindication to Lovenox. At this point there is no evidence of significant hematuria. And I may restart the patient back on Eliquis or Lovenox. Objective - Vital Signs Vital signs: Vital Signs Temp 98.4 F 02/12/21 04:00 Pulse 40 L 02/12/21 07:00 Resp 36 H 02/12/21 07:00 BP 107/62 02/12/21 06:00 Pulse Ox 95 02/12/21 07:00 Intake & Output 02/11/21 02/12/21 02/12/21 18:59 06:59 18:59 Intake Total 8452.461 4635.44 78 Output Total 1055 1160 185 Balance 399.876 -15.56 -107 Weight 78.7 kg 78.1 kg Intake: IV 638 936 78 Pressure Bag 0.9 sodium 33 36 3 chloride Sodium Chloride 0.9% 1, 605 900 75 000 ml @ 75 mls/hr IV . [id number] [facility] Rx#:[id number] Intake, IV Titration 816.876 208.44 Amount Mvi, Adult No.4 with Vit 30 K 10 ml Trace (Conc-1Ml/ Dose) 1 ml Sodium Chloride 4Meq/ml Vial 32 meq Potassium Chloride 20 meq Calcium Gluconate 1 gm In Amino Acids 5 %/ Dextrose 20 % 1,000 ml @ 30 mls/hr IV .Q24H [facility] Rx #:[id number] Norepinephrine 4 mg In 28.227 Sodium Chloride 0.9% 250 ml @ 0.05 MCG/KG/MIN 13. 826 mls/hr IV .[id number] [facility] Rx#:[id number] Sodium Chloride 0.9% 500 500 ml 500 ml @ 999 mls/hr IV .Q31M [facility] Rx#:[id number] fentaNYL (PF). 1,000 mcg 90.403 78.44 In Sodium Chloride 0.9% 80 ml @ 1 MCG/KG/HR 7.4 mls/hr IV .[id number] [facility] Rx #:[id number] propofoL 1,000 mg In 198.246 100 Empty Bag 1 bag @ Titrate IV .Q0M [facility] Rx#: [id number] Output: Chest Tube Drainage 60 70 120 Right Lower 60 70 120 Urine 995 1090 65 Other: Voiding Method Indwelling Catheter Indwelling Catheter ABP, PAP, CO, CI - Last Documented Arterial Blood Pressure 117/51 - Exam Physical Exam: Revealed a 75-year-old white male , intubated and mechanically ventilated. Arousable and follows simple instructions off sedation. Head: Atraumatic normocephalic. HEENT:[Neck is supple.] [No neck masses.] [No thyromegaly.] [No JVD.] Chest: Crackles at the bases bilaterally. No rhonchi and no wheezes, right- sided chest tube is noted connected to Pleur-evac been used to have a leak. But minimal based on the volume loss on the ventilator. Cardiac Exam: [Normal S1 and S2, no S3 gallop, no murmur.] Abdomen: [Soft, nontender, no megaly, no rebound, no guarding, normal bowel sounds.] Extremities: [No clubbing, no edema, no cyanosis.] Neurological Exam: Arousable, follows simple instructions but seems to be generally weak. Psychiatric: Arousable follows instructions, generally weak, could not fully assess psychiatric status but seems to be comprehending and following instructions. Skin: No rashes. - Labs CBC & Chem 7: 02/11/21 03:50 02/12/21 04:08 Labs: Abnormal Lab Results - Last 24 Hours (Table) 02/11/21 02/11/21 02/11/21 Range/Units 03:50 12:38 17:26 ABG pH (7.35-7.45) ABG HCO3 (21-25) mmol/L ABG Total CO2 (19-24) mmol/L ABG O2 Saturation (94-97) % BUN (9-20) mg/dL Creatinine (0.66-1.25) mg/dL Glucose (74-99) mg/dL POC Glucose (mg/dL) 147 H 152 H (75-99) mg/dL Calcium (8.4-10.2) mg/dL Phosphorus 5.5 H (2.5-4.5) mg/dL Magnesium 2.5 H (1.6-2.3) mg/dL Total Protein (6.3-8.2) g/dL Albumin (3.5-5.0) g/dL 02/12/21 02/12/21 02/12/21 Range/Units 04:08 05:23 05:27 ABG pH 7.49 H (7.35-7.45) ABG HCO3 30 H (21-25) mmol/L ABG Total CO2 31 H (19-24) mmol/L ABG O2 Saturation 97.3 H (94-97) % BUN 68 H (9-20) mg/dL Creatinine 1.43 H (0.66-1.25) mg/dL Glucose 196 H (74-99) mg/dL POC Glucose (mg/dL) 214 H (75-99) mg/dL Calcium 7.6 L (8.4-10.2) mg/dL Phosphorus (2.5-4.5) mg/dL Magnesium 2.5 H (1.6-2.3) mg/dL Total Protein 4.9 L (6.3-8.2) g/dL Albumin 2.2 L (3.5-5.0) g/dL 02/12/21 Range/Units 11:29 ABG pH (7.35-7.45) ABG HCO3 (21-25) mmol/L ABG Total CO2 (19-24) mmol/L ABG O2 Saturation (94-97) % BUN (9-20) mg/dL Creatinine (0.66-1.25) mg/dL Glucose (74-99) mg/dL POC Glucose (mg/dL) 161 H (75-99) mg/dL Calcium (8.4-10.2) mg/dL Phosphorus (2.5-4.5) mg/dL Magnesium (1.6-2.3) mg/dL Total Protein (6.3-8.2) g/dL Albumin (3.5-5.0) g/dL Assessment and Plan Assessment: #1. Acute hypoxic respiratory failure secondary to COVID-19 pneumonia, not vaccinated. Symptoms started on 01/17, patient took ivermectin on outpatient basis, refused Remdesivir currently on Decadron is also on prophylactic anticoagulation, he is on COVID-19 cocktail. Received Baricitinib, on 1217, patient was transferred to the ICU and he was intubated. Remains intubated and mechanically ventilated since 02/02. He is on assist control mode of mechanical ventilation. Sedated Patient is now on a combination of Baricitinib and Decadron. He was found to have bilateral lower extremity DVT. Started on anticoagulations therapy however the patient now developed hematuria and I have recommended stopping Lovenox and all anticoagulation therapy for the time being until a decision is made by urology and if there is an acute contraindication to restarting anticoagulations therapy, the patient may need IVC filter placement. #2. Elevated inflammatory markers related to the above, improving. #3. Elevated transaminases, improving #4. History of COPD with diffuse centrilobar emphysema #5. Former smoker #6. Coronary artery disease with previous coronary artery bypass grafting 4 in 2018 #7. Mitral valve repair #8. Crohn's disease #9. Hypertension #10. History of systolic CHF #11 new-onset atrial fibrillation on 02/07/21, started patient on amiodarone. Now in sinus rhythm, will discontinue amiodarone. #12 acute blood loss anemia, exact source is not clear, this is most likely related to hematuria. Subsided since yesterday. And since holding anticoa gulation therapy #13 gross hematuria, to be addressed today again by urology, in the meantime we will hold anticoagulation therapy. #14 right-sided pneumothorax/barotrauma/secondary to COVID-19 inf ection/pneumonia. Requiring chest tube placement on 02/11/21. Chest tube remains in place. Continue same air leak. #15 acute kidney injury, being addressed by nephrology on the case. #[address] orogastric tube general surgery or GI to evaluate. In the meantime patient is receiving TPN. Recommendation: Trial off sedation today. And trial of possible weaning today. Continue ventilatory support. He is now on pressure support of 10 with a IMV backup rate of 8 and FiO2 is 45%. Continue COVID-19 cocktail as above. Hold amiodarone. Continue TPN , until orogastric tube is place, then we could consider enteral feeding. Continue to hold Lovenox for now. Consider IVC filter placement if there is absolute contraindication to anticoagulation therapy. Patient did have DVT. Continue to monitor renal profile Continue GI prophylaxis. Nephrology is evaluating his renal status. Continue to monitor inflammatory markers. Remains DO NOT RESUSCITATE CODE STATUS Discussed with the family at bedside his overall status, the family was considering comfort care measures, however after I updated the family on the condition and without noticing some improvement in the last 24 hours, the plan is to continue supportive care measures, and not to proceed to comfort care measures. Remains quite ill and prognosis remains guarded and family is very well aware of this. Critical care time is over 30 minutes. Time with Patient: Greater than 30
[2021-02-12 14:40] LABS: ABG Base Excess 2.4 mmol/L; ABG HCO3 28 mmol/L (21-25); ABG Oxygen Saturation 88.6 % (94-97); ABG PCO2 50 mmHg (35-45); ABG PH 7.35 (7.35-7.45); ABG PO2 61 mmHg (83-108); ABG TCO2 30 mmol/L (19-24)
[2021-02-12 14:42] LABS: Allen Test Performed? no
--- NOTE | 2021-02-12 15:06 | PN ---
PROGRESS NOTE Patient is seen for followup for acute kidney injury. Patient was started on IV fluids yesterday. Renal function has improved. Creatinine is down to 1.4 from 1.8 yesterday. On examination today, patient is being considered for extubation. His sedation is being weaned off. He is waking up. Blood pressure this morning 117/51, heart rate 40 per minute. Patient is afebrile. Examination of lower extremities shows no evidence of edema. 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 Sedation is currently being weaned down. Labs show sodium 142, potassium 3.5, chloride 107, BUN 68, creatinine 1.43. ASSESSMENT: 1. Acute kidney injury, acute tubular necrosis, with component of hypovolemia. Renal function currently improving with IV fluids. Continue with the IV fluids at 75 mL/hour. No nephrotoxic agents on board. 2. COVID pneumonia. 3. Metabolic alkalosis, currently improved, status post Diamox. 4. Acute hypoxic respiratory failure from COVID pneumonia, currently on the vent. PLAN: Continue with IV fluids. Repeat labs in a.m. May discontinue the Diamox. MMODL / IJN: [id number] /
[2021-02-12] MEDS: LORazepam 2 MG/ML INJ IV PRN (15:34)
[2021-02-12] MEDS ORDERED: FUROSEMIDE 10 MG/ML 2 ML VIAL IV ONE (15:35)
[2021-02-12 17:24] LABS: Glucose,Whole Blood 201 mg/dL (75-99)
[2021-02-12] MEDS: 1: MVI, ADULT NO.4 WITH VIT K 10 ML, TRACE (CONC-1ML/DOSE) 1 ML, SODIUM CHLORIDE 4MEQ/ML IV SCH ×6 (17:24)
[2021-02-12] MEDS ORDERED: LORazepam 2 MG/ML INJ IV STA (18:31)
[2021-02-12] MEDS ORDERED: CISATRACURIUM 2 MG/ML 5 ML VIAL IV ONE (19:46)
--- NOTE | 2021-02-12 20:33 | XR ---
EXAMINATION TYPE: XR chest 1V portable DATE OF EXAM: 02/12/2021 8:13 PM COMPARISON:Chest radiographs from 02/04/2021 CLINICAL INDICATION:Male, 75 years old with history of hypoxia on vent fio2 100%; TECHNIQUE: Frontal view of the chest. FINDINGS: Lungs/Pleura: Right-sided pneumothorax more lucent than prior. Similar multifocal airspace opacities most pronounced in right lower lobe. Pulmonary vascularity: Unremarkable. Heart/mediastinum: Cardiomediastinal silhouette is partially obscured due to overlying and adjacent o pacities. Musculoskeletal: No acute osseous pathology. Other findings: Midline sternotomy wires and surgical clips project over the mediastinum. Lines/Tubes: Endotracheal tube with distal tip at the level of the aortic arch Right thoracotomy tube is present with small pneumothorax. IMPRESSION: 1. Right thoracotomy tube with small right pneumothorax. 2. Similar multifocal pneumonia. 3. Stable support lines and tubes.
--- NOTE | 2021-02-12 20:41 | P.PN ---
Progress Note - Text Progress Note Date: 02/12/21 Hospital course: 74-year-old patient who follows with Dr. Mauricio Keith. Tonic stable medical conditions include hypertension, Crohn's disease, nephrolithiasis, BPH, hypertension, tinnitus, COPD, CAD with bypass. EF of 20-25%. Presented with shortness of breath. Diagnosed with COVID 19 on January 18 symptoms starting 1 day before. He was found to be hypoxic at home. Upon arrival he was 85%. Patient declined treatment with Remdesivir. Patient had been taking ivermectin as outpatient. She requested this to be continued. This was declined by the admitting team as this was not approved treatment. Patient not vaccinated against COVID. She did with subcu Lovenox and dexamethasone. January 24: Patient feeling better. On 3 L nasal cannula. Oral intake fair. Up in a bed. Slight cough. January 25: Sitting up in a recliner. Tired. Has some chest tightness. 92% on 4 L. Oral intake good. January 26: Bit more short of breath. Oxygen requirement: Up to 15 L. Had low-grade fever. Eating about 50-75%. Tired. Up in a chair. January 27: Short of breath. Sitting at the edge of the bed. 15 L nasal cannula. Decreased appetite. January 28: Laying in bed. Tired. Short of breath. On 15 L nonrebreather. Oral intake fair. Started on Baricitinib by pulmonary January 29: Patient is become more short of breath. Placed on BiPAP. Decreased oral intake. Tired. On Baricitinib, dexamethasone. January 30: Sitting up in a chair. Using BiPAP. Short of breath. Decreased oral intake. On Baricitinib) dexamethasone. Acute PE on CT chest. Started on eliquis January 31: Sitting at the edge of the bed. BiPAP. Short of breath. Tired. On eliquis, on Baricitinib, dexamethasone. February 01: Laying in bed. Short of breath. BiPAP. Tired. On Baricitinib, dexamethasone, eliquis. Eating reasonably well. February 02: Rather tired short of breath BiPAP 100%. On dexamethasone, eliquis February 03: ICU: Intubated yesterday. Prone position. Ventilator FiO2 70 PEEP of 12. Drips included propofol and Nimbex. February 08: ICU: Ventilator FiO2 52 PEEP of 14. 2 feeding at 30 mL an hour. Went into an episode of rapid A. fib last night. Given IV amiodarone. Current drips include norepinephrine, Nimbex, propofol, fentanyl February 09: ICU: Ventilator: FiO2 40 and a PEEP of 14. 2 feeding at 30 mL an hour. Drips include fentanyl, propofol. Atrial fibrillation controlled February 10: ICU: On the ventilator. FiO2 15 a PEEP of 14. Drips included propofol and fentanyl. Atrial fibrillation controlled. Earlier hemoglobin dropped to 6.7. No evidence of bleeding. 1 unit of blood ordered. February 11: ICU: Ventilator 50/6. Patient developed significant hematuria overnight. Neurology consulted. Patient developed a spontaneous right-sided pneumothorax. Chest tube placed. Trouble with OG tube placement. February 12: ICU: Ventilator 50/8. Patient been off sedation. Chest tube on the right side. About 2 and 40 mL in last 24 hours. Patient is on TPN. No lipids. Telemetry shows sinus rhythm. Patient's daughter and Cleviprex today. Bladder was flushed. Some clearing of the hematuria. Review of systems: Patient on ventilator Active Medications Acetaminophen (Acetaminophen Tab 325 Mg Tab) 650 mg PO Q6HR PRN PRN Reason: Fever and/ or Pain Last Admin: 02/02/21 06:07 Dose: 650 mg Documented by: Albuterol Sulfate (Albuterol Hfa Inhaler) 2 puff INHALATION RT-QID [facility] Last Admin: 02/12/21 19:18 Dose: 2 puff Documented by: Albuterol Sulfate (Albuterol Hfa Inhaler) 4 puff INHALATION RT-QID PRN PRN Reason: Shortness Of Breath Or Wheezing Amiodarone HCl (Amiodarone 200 Mg Tab) 200 mg PO TID [facility] Stop: 02/15/21 11:16 Last Admin: 02/12/21 19:56 Dose: Not Given Documented by: Artificial Tears (Artificial Tears-Hypromellose Drops 15 Ml Btl) 2 drops BOTH EYES Q4HR [facility] Last Admin: 02/12/21 17:24 Dose: 2 drops Documented by: Ascorbic Acid (Ascorbic Acid 500 Mg Tab) 2,000 mg PO DAILY [facility] Last Admin: 02/12/21 08:08 Dose: Not Given Documented by: Chlorhexidine Gluconate (Chlorhexidine Gluconate 15 Ml Cup) 15 ml MUCOUS MEM BID [facility] Last Admin: 02/12/21 20:21 Dose: 15 ml Documented by: Cholecalciferol (Cholecalciferol 125 Mcg (5000 Iu) Tablet) 125 mcg PO DAILY [facility] Last Admin: 02/12/21 08:08 Dose: Not Given Documented by: Cyanocobalamin (Cyanocobalamin 500 Mcg Tab) 4,000 mcg PO DAILY [facility] Last Admin: 02/12/21 08:08 Dose: Not Given Documented by: Dexamethasone Sodium Phosphate (Dexamethasone Sod Phosphate 10 Mg/Ml 1 Ml Vial) 6 mg IVP DAILY [facility] Last Admin: 02/12/21 08:21 Dose: 6 mg Documented by: Enoxaparin Sodium (Enoxaparin 80 Mg/0.8 Ml Syringe) 80 mg SQ BID [facility] Last Admin: 02/12/21 20:21 Dose: 80 mg Documented by: Hydromorphone HCl (Hydromorphone 1 Mg/Ml 1 Ml Syringe) 1 mg IVP Q3HR PRN PRN Reason: pain Propofol 1,000 mg/ IV Solution 100 mls @ 0 mls/hr IV .Q0M [facility]; Protocol Last Admin: 02/12/21 19:29 Dose: 20 mcg/kg/min, 9.372 mls/hr Documented by: Cisatracurium Besylate 200 mg/ (Sodium Chloride) 200 mls @ 8.709 mls/hr IV .[id number] [facility]; Protocol Last Admin: 02/12/21 20:03 Dose: 2 mcg/kg/min, 8.709 mls/hr Documented by: Norepinephrine Bitartrate 4 mg (/ Sodium Chloride) 254 mls @ 13.826 mls/hr IV .[id number] [facility]; Protocol Last Titration: 02/12/21 20:24 Dose: 0.13 mcg/kg/min, 35.946 mls/hr Documented by: Fentanyl Citrate 1,000 mcg/ (Sodium Chloride) 100 mls @ 7.4 mls/hr IV .[id number] [facility]; Protocol Last Titration: 02/12/21 08:30 Dose: 0 mcg/kg/hr, 0 mls/hr Documented by: Parenteral Vitamin Supplement 10 ml/ Zinc/Copper/Manganese/Selenium 1 ml/ Sodium Chloride 32 meq/ Potassium Chloride 20 meq/ Calcium Gluconate 1 gm/Amino Acids/Dextrose 1,039 mls @ 70 mls/hr IV .BY DURATION [facility] Sodium Chloride 32 meq/Potassium Chloride 20 meq/Calcium Gluconate 1 gm/ Amino Acids/Dextrose 1,028 mls @ 70 mls/hr IV .BY DURATION [facility] Last Admin: 02/12/21 17:24 Dose: 70 mls/hr Documented by: Clevidipine 25 mg/ IV Solution 50 mls @ 2 mls/hr IV .Q24H [facility]; Protocol Last Titration: 02/12/21 19:44 Dose: 0 mg/hr, 0 mls/hr Documented by: Sodium Chloride (Saline 0.9%) 1,000 mls @ 20 mls/hr IV .Q24H [facility] Last Admin: 02/12/21 18:54 Dose: 20 mls/hr Documented by: Insulin Aspart (Insulin Aspart (Novolog) 100 Unit/Ml Vial) 0 unit SQ Q6H [facility]; Protocol Last Admin: 02/12/21 18:54 Dose: 6 unit Documented by: Lorazepam (Lorazepam 2 Mg/Ml Inj) 1 mg IV Q4HR PRN PRN Reason: Anxiety Last Admin: 02/12/21 15:34 Dose: 1 mg Documented by: Miscellaneous Information (Potassium Replacement Protocol 1 Each Misc) 1 each MISCELLANE DAILY PRN; Protocol PRN Reason: Per Protocol Tamsulosin HCl (Tamsulosin 0.4 Mg Cap.Er.24h) 0.4 mg PO BID [facility] Last Admin: 02/12/21 19:56 Dose: Not Given Documented by: Zinc Sulfate (Zinc Sulfate 220 Mg Cap) 220 mg PO DAILY [facility] Last Admin: 02/12/21 08:08 Dose: Not Given Documented by: On examination: VITAL SIGNS: Afebrile, 51, 22, 105/61, 99% on ventilator GENERAL APPEARANCE: , sedated, intubated, right-sided chest tube. Bloody urine in the Mary catheter: Clearing up RESPIRATORY: Respiratory effort increased. PSYCHIATRY: Unable to assess, sedated Rest of the exam per pulmonary and nursing INVESTIGATIONS, reviewed in the clinical context: February 04: Sodium 142 BUN 68 creatinine 1.43 February 11: White count 12.7 hemoglobin 9.7 platelets 432 potassium 4.6 BUN 72 creatinine 1.8 seventh. Chest x-ray shows right-sided pneumothorax February 10: WBC 10.6 hemoglobin 6.7 platelets. Potassium 4.4 BUN 72 creatinine 1.4 to February 09: White count 9.5 hemoglobin 8.7 platelets 374 ABG: PCO2 35 pO2 56 potassium 5 creatinine 1.07. Chest x-ray: Bilateral infiltrates February 08: WBC 11.5 hemoglobin 8 platelets 450 potassium 4.7 BUN 63 creatinine 1.47 Doppler ultrasound [February 05] DVT in the left popliteal vein and right lower extremity superficial vein February 03: W BC 21.5 hemoglobin 8.8 platelets 267 ABG: PH 7.25 pCO2 34 pO2 93 potassium 4.6 creatinine 1.39 February 02: White count 18.4 hemoglobin 9. ABG: PH 7.5 pO2 58 creatinine 1.18. Chest x-ray: Worsening February 01: White count 16.7 hemoglobin 9.7 d-dimer greater than 34 BUN 45 creatinine 1.27 January 31: WBC 13.1 COVID 10.3 d-dimer greater than 34 potassium 4.5 creatinine 1.26 CRP 3.5 January 30: WBC 10.4 hemoglobin 9.8 platelets 145 potassium 4.5 creatinine 1.4. AST [address] angiogram for PE [January 30] new Pasia occlusive embolism segmental bronchus right lower lobe with segmental extension. Doppler ultrasound [January 29]: Superficial thrombosis in the right lesser saphenous vein. January 29: D-dimer greater than 34 potassium 4.4 BUN 67 creatinine 1.61 AST 174 ALT 73 January 28: WBC 10.2 hemoglobin 11.4 platelets 154 d-dimer greater than 34 sodium 136 potassium 4.9. 43 creatinine 1.29 January 27: WBC 11.8 hemoglobin 10.5 January 26: White count 11.8 hemoglobin 11.5 d-dimer 12.6 CRP 7.3 White count 5.9 hemoglobin 12.3 platelets 162 d-dimer 0.93 potassium 4.1 creatinine 0.86 CRP 4.4 Admission labs: Pro-calcitonin 0.04 Coronavirus [PCR]: Detected D-dimer 0.83 EKG tracing personally reviewed by me-sinus bradycardia. Rate 55 Chest x-ray: biLateral infiltrates Assessment and plan: -Bilateral COVID 19 pneumonitis: Not improving Dexamethasone. Subcu Lovenox. (declined Remdesivir. patient was taking ivermectin at home). Baricitinib started January 28 -Spontaneous right-sided pneumothorax on February 11 Right-sided chest tube -Acute severe hematuria.: Clearing Follow H&H. Urology consulted -Acute pulmonary embolism, along with DVT: Lovenox subcu -Septic shock:better Received IV levo fed -Acute hypoxic respiratory failure from COVID 19: Not improving Intubated February 02. On the ventilator -Essential hypertension: Currently blood pressure is running low -Chronic Crohn's disease Pentasa 1000 milligrams 3 times a day - nephrolithiasis Follow clinically -Acute kidney injury. Possibly ATN from COVID 19 causing infection and hypotension Follow nephrology -Paroxysmal atrial fibrillation with episodes of rapid ventricular rate Amiodarone -BPH Flomax 0.4 mg twice a day -COPD in a previous smoker Pulmicort -Chronic tinnitus with hearing impairment -CAD with bypass Aspirin, beta billy, Lipitor -Hyperlipidemia Lipitor 40 mg daily -Acute hepatitis: Improving hold Lipitor. Follow LFT -Full code -TPN Hematuria clearing up. Right-sided chest tube. Sclerae prick started today. Off sedation. On TPN. Family the bedside. Updated. Therapeutic dose of Lovenox.
[2021-02-12 23:13] LABS: Glucose,Whole Blood 267 mg/dL (75-99)
[2021-02-13] MEDS: NOREPINEPHRINE 4 MG in SODIUM CHLORIDE 0.9% 250 ML IV SCH ×3 (00:33→18:01)
[2021-02-13 04:29] LABS: Anisocytosis Slight; Basophils % (A) 0 %; Eosinophils % (A) 0 %; HCT 31.6 % (39.0-53.0); Hypochromasia Marked; Lymphocytes # (A) 0.1 k/uL (1.0-4.8); Lymphocytes % (A) 0 %; MCH 28.6 pg (25.0-35.0); MCHC 28.6 g/dL (31.0-37.0); MCV 100.1 fL (80.0-100.0); Macrocytosis Slight; Mean Platelet Volume 8.8; Monocytes # (A) 0.5 k/uL (0-1.0); Monocytes % (A) 2 %; Neutrophils # (A) 21.4 k/uL (1.3-7.7); Neutrophils % (A) 97 %; Platelet Count 427 k/uL (150-450); RBC 3.16 m/uL (4.30-5.90); RDW 16.4 % (11.5-15.5); WBC 22.2 k/uL (3.8-10.6)
[2021-02-13 04:43] LABS: Calcium 7.7 mg/dL (8.4-10.2); Magnesium 2.3 mg/dL (1.6-2.3); Phosphorus 3.4 mg/dL (2.5-4.5)
[2021-02-13] MEDS: ARTIFICIAL TEARS-HYPROMELLOSE DROPS 15 ML BTL BOTH EYES SCH ×6 (05:19→23:28)
[2021-02-13] MEDS: INSULIN ASPART (NovoLOG) 100 UNIT/ML VIAL SQ SCH ×4 (05:21→23:28)
[2021-02-13 06:01] LABS: ABG Base Excess -0.6 mmol/L; ABG HCO3 27 mmol/L (21-25); ABG Oxygen Saturation 98.5 % (94-97); ABG PCO2 63 mmHg (35-45); ABG PH 7.24 (7.35-7.45); ABG PO2 135 mmHg (83-108); ABG TCO2 29 mmol/L (19-24); Allen Test Performed? Yes
[2021-02-13] MEDS: ALBUTEROL HFA INHALER INHALATION SCH ×4 (07:58→20:21)
--- NOTE | 2021-02-13 08:02 | XR ---
EXAMINATION TYPE: XR chest 1V portable DATE OF EXAM: 02/13/2021 COMPARISON: 02/12/2021 HISTORY: SOB, Follow Up FINDINGS: Indwelling tubes and catheters are unchanged. Right-sided chest tube unchanged in position. Right-mady ed pneumothorax seen previously is less conspicuous on today's study. Scattered interstitial and airspace infiltrates persist unchanged. Stable appearance of the cardio-mediastinal structures at this time. Pleural effusion unchanged. IMPRESSION: 1. Right-sided chest tube unchanged in position. Right-sided pneumothorax seen previously is less co nspicuous on today's study.
[2021-02-13] MEDS: ASCORBIC ACID 500 MG TAB PO SCH (08:58)
[2021-02-13] MEDS: AMIODARONE 200 MG TAB PO SCH ×3 (08:58→20:29)
[2021-02-13] MEDS: CYANOCOBALAMIN 500 MCG TAB PO SCH (08:58)
[2021-02-13] MEDS: CHOLECALCIFEROL 125 MCG (5000 IU) TABLET PO SCH (08:58)
[2021-02-13] MEDS: TAMSULOSIN 0.4 MG CAP.ER.24H PO SCH ×2 (08:59→20:29)
[2021-02-13] MEDS: ZINC SULFATE 220 MG CAP PO SCH (08:59)
[2021-02-13] MEDS: CHLORHEXIDINE GLUCONATE 15 ML CUP MUCOUS MEM SCH ×2 (09:54→20:31)
[2021-02-13] MEDS: DEXAMETHASONE SOD PHOSPHATE 10 MG/ML 1 ML VIAL IVP SCH (09:54)
[2021-02-13] MEDS: ENOXAPARIN 80 MG/0.8 ML SYRINGE SQ SCH ×2 (09:55→20:31)
[2021-02-13] MEDS: 1: MVI, ADULT NO.4 WITH VIT K 10 ML, TRACE (CONC-1ML/DOSE) 1 ML, SODIUM CHLORIDE 4MEQ/ML IV SCH ×12 (10:05→13:45)
[2021-02-13 11:13] LABS: Glucose,Whole Blood 121 mg/dL (75-99)
--- NOTE | 2021-02-13 11:54 | P.PN ---
Progress Note - Text Progress Note Date: 02/12/21 Patient remained stable in the ICU. He is still on the ventilator. Patient has not been able have a orogastric tube placed. This most likely due to edema. We will attempt orogastric tube placement in a day or 2 once his edema has improved.
--- NOTE | 2021-02-13 11:55 | P.PN ---
Progress Note - Text Progress Note Date: 02/13/21 Patient remains on the ventilator. He is still receiving TPN. We will attempt orogastric tube placement tomorrow. Hopefully this edema has improved.
--- NOTE | 2021-02-13 13:52 | P.PN ---
Subjective Progress Note Date: 02/13/21 Principal diagnosis: Acute hypoxic respiratory failure secondary to COVID-19 pneumonia This is a 75-year-old male patient who follows with Dr. Mauricio Keith is his primary care provider. He has a history of coronary artery disease with previous coronary artery bypass grafting, mitral valve replacement, hypertension, hyperlipidemia, chronic obstructive pulmonary disease, former smoker, Crohn's disease. On January 17 the patient started having symptoms of fever cough congestion weakness and was tested for COVID-19 on January 18. He found out his results on January 21 and was told to stay home and rest unless his symptoms worsened. He was given doxycycline and prednisone 20 mg twice a day. His brought him into the emergency room here today as his oxygen levels were dropping at home. Chest x-rays revealing patchy bilateral interstitial pneumonia with underlying COPD. White count 2.8. Hemoglobin 12.9. Platelets 149. Lymphocytes 0.2. D-dimer 0.83. Sodium 133. Potassium 4.7. Creatinine 1.06. Glucose 154. AST 122. ALT 75. LDH 1082. C-reactive protein 6.4. Chronic virus by PCR positive. The patient is not vaccinated. He is seen today in the emergency room. Awake and alert in no acute distress. Sitting up on a stretcher. He is 85% O2 saturation on room air. 93% on 2 L per nasal cannula. Afebrile. Hemodynamically stable. He's been initiated on Lovenox and vitamin supplements. He will be started on Decadron. We discussed with him the possibility for Remdesivir which he is reluctant to receive. His who is sitting next to him is also having symptoms and she plans to go get tested today. The patient is seen today 01/24/2021 in follow-up on the observation unit. He is currently sitting up in bed. Awake and alert in no acute distress. He is feeling quite a bit better. Feeling stronger today. He did decline Remdesivir. He has been maintained on Lovenox, Decadron, vitamin supplements. He is currently maintaining O2 saturation in the low 90s on 3 L/m per nasal cannula. He's been afebrile. Hemodynamically stable. Chest x-ray continues to show increased bilateral infiltrates. White count 5.9. Hemoglobin 12.3. D-dimer 0.93. Sodium 134. Potassium 4.1. Creatinine 0.86. Glucose 158. AST 87. ALT 62. LDH 81. C-reactive protein 4.4. On 01/25/2021 patient seen in follow-up on medical surgical floor. He is awake and alert, in no acute distress, breathing comfortably, although still has a persistent cough, does have exertional dyspnea. He is currently on 4 L of oxygen and his pulse ox is borderline between 87-92%. No fever or chills, blood pressure is been stable, patient has been ambulate into the bathroom. Today's chest x-ray shows progressive changes in the lungs with increasing bilateral i nfiltrates. Patient remains on Decadron 6 mg daily, prophylactic Lovenox, he is on inhaled [place] dilators, he is on COVID-19 vitamins. His labs from yesterday showed a d-dimer of 0.93, electrolytes and renal profile were fairly unremarkable, his AST and ALT were improving and were down to 87 and 62 respectively, his inflammatory markers showed a trend for improvement with LDH at 881, and CRP of 4.4. Reevaluated today on 01/26/2021, patient remains on the regular medical floor, his condition got a bit worse yesterday, he is now on 15 L nasal cannula high flow, and his O2 saturation is ranging between 90 up to 96%. However the patient does not seem to be in any distress, he is afebrile with a temp of 97 9 he had a T-max of 100.4 last night. Vital signs are stable. Blood pressure 113/43. Previous count is 11.8 hemoglobin is 11.5, d-dimer went up to 12.66, however workup for pulmonary embolism and venous Doppler came back negative yesterday last night. Patient is on the COVID-19 cocktail, he refused taking remdesivir when he qualified, he is on Lovenox at 40 mg subcu daily, he is also on vitamin D, vitamin C, zinc, and he is on Decadron 6 mg by mouth daily. Evaluated today on 02/07/2021, patient remains in the ICU, intubated and mechanically ventilated. He is presently on assist control rate of 30 tidal volume 420 FiO2 50% PEEP of 14. ABG showed a pO2 of 60 pCO2 of 71 pH of 7.39. A shunt is on propofol at 14 Nimbex at 1.5, he is also on Dilaudid when necessary, IV fluid at KVO. His renal profile showed a BUN of 57 creatinine 1.8. While I was evaluating the patient, shortly after the patient developed an episode of atrial fibrillation with RVR, recommended amiodarone to be started as per protocol, and starting amiodarone drip on this patient. Patient is not re ashleigh for any weaning trials at this point specially with his new onset atrial fibrillation with RVR. His electrolytes are normal BUN is 57 creatinine 1.18. She count is 12.4 hemoglobin is 8.1. X-ray continues to show diffuse bilateral infiltrates. Not much of a change or improvement noted. Patient remains on the COVID-19 cocktail. Remains on Decadron 6 mg IV push daily. Lovenox was increased to 80 mg subcu twice a day. Patient is also on Baricitinib. Amiodarone was added today. Reevaluated today on 02/08/21, patient remains in the ICU intubated and mechanically ventilated. He is now on assist control rate of 30 tidal volume 420 FiO2 60% and I cut it down to 50% PEEP is at 14. ABG today showed a pO2 of 60 pCO2 71 pH of 7.39. His electrolytes are normal BUN is 63 creatinine 1.47 WBC count is 11.5 hemoglobin is 8.0. Chest x-ray is not showing much of an improvement, continues to have bilateral infiltrates. Patient is on multiple drips including fentanyl at 1, propofol at 3 0 mcg/kg/m, Nimbex at 1.5 mcg/kg/m amiodarone 0.5 mg/m. Patient is on norepinephrine at 0.03 mcg/kg/m is also on enteral feeding/utilizing Nepro at 32 mL per hour and sputum cultures are normal nondiagnostic. Patient is now on oral amiodarone at 20 mg 3 times a day, and IV amiodarone has been discontinued. Patient is on ascorbic acid, I have discontinued his colazal, and it may confuse the picture because it is known to cause pneumonitis/drug-induced pneumonitis. I kept the patient on Baricitinib, remains on Lovenox 80 mg subcu twice a day specially with his atrial fibrillation and RVR although today he went back to normal sinus rhythm. Patient remains on the COVID-19 cocktail. At this point I don't see any room to wean or extubated the patient, he will remain intubated mechanically ventilated and sedated. I would also keep him paralyzed since the patient is requiring relatively high PEEP, and chest x-ray is not showing much improvement he still requiring relatively high FiO2 it was 60% and I cut it down today to 50% Reevaluated today on 02/09/2021, patient remains in the ICU intubated and mechanically ventilated. He is now on assist control rate of 30 tidal volume 420 FiO2 50% PEEP is 14. ABG is marginal with a pO2 of 56 pCO2 of 75 pH of 7.39. Remains on propofol at 30 mcg/kg/m fentanyl 20 mcg/kg/h Nimbex at 1.5 mcg/kg/m he is off norepinephrine presently he is on enteral feeding and he is on IV fluid at KVO. Chest x-ray continues to show bilateral infiltrates not much of a change in the last 24 hours. Labs including basic metabolic profile and CBC were reviewed, seem to be relatively unremarkable. Today I suggested that we stop Nimbex and try to maintain the patient mostly on propofol and fentanyl if possible, and hopefully the patient couldn't tolerate coming off paralytics. In the meantime the patient remains on the treatment as noted above. Reevaluated today on 02/10/21, patient remains in the ICU, intubated and mechanically ventilated. He is presently on assist control rate of 30 tidal volume 420 FiO2 50% PEEP is down to 14. His ABG showed a pO2 of 64 pCO2 of 66 pH of 7.44. Patient is off Nimbex today, and I have kept him on propofol at 50 mcg/kg/m he is also on fentanyl. At 1 mcg/kg/h. His norepinephrine is down to 0.02 mcg/kg/m. Again his ABG is marginal and no changes were made in his ventilator settings. However I noted that his hemoglobin is down to 6.7 today. No evidence of any active bleeding anywhere, his hemoglobin yesterday was 8.7, and I recommended a unit of packed RBCs to be transfused to this patient today. metabolic profile is normal. WBC count is 10.6 hemoglobin is 6.7. Platelets are 474. Medications-sevilla patient remains on albuterol, amiodarone 200 mg by mouth 3 times a day, ascorbic acid, vitamin D, Peridex, Decadron 6 mg by mouth daily, Lovenox 80 mg subcu twice a day, Lasix 40 mg IV push daily, patient is also on Flomax and on zinc. Reevaluated today on 02/11/21, patient remains intubated and mechanically ventilated. Remains in the ICU. However this morning the patient developed a large right-sided pneumothorax requiring tube thoracostomy. Patient was noted to have significant air leak after the chest tube placement, and had to cut down on his PEEP down to 6, I had to increase his tidal volume to make up for the loss of volume through the chest tube, and I haven't now on FiO2 of 50% PEEP of 6 tidal volume 600 although he is getting about 400 and his rate is at 36. Chest x-ray post chest tube placement showed adequate positioning of the chest tube, and a small residual pneumothorax. Significant expansion of the right lung was noted. Again after the chest tube there was significant amount of air leak and seems to be gradually getting better we made up for the loss of volume by increasing the rate increasing the tidal volume and cutting down the PEEP down to 6. ABG after all these changes showed a pO2 of 81 pCO2 41 pH of 7.57. WBC count today is 4.7 hemoglobin is 9.7. Basic metabolic profile is normal renal functioning is abnormal him a creatinine is up to 1.87 from 1.4 to yesterday. Patient continues to have significant amount of hematuria , to be evaluated by urology in the meantime I'm holding his Lovenox, if urology see the patient and recommends no more anticoagulation therapy, I will done strongly recommend IVC filter placement in this patient. This will be decided upon hopefully later today or definitely in the next 24 hours. In the meantime we'll keep Lovenox and anticoagulations therapy on hold we are still having difficulty with a orogastric tube placement in this patient, general surgery was consulted, and the plan is to start the patient on TPN today, Dr. Rincon we'll arrange for EGD and orogastric tube placement hopefully tomorrow. May have to switch amiodarone to IV form instead of oral form because of no GI access at this point . Today the patient will remain on fentanyl and on propofol and no plans to wean him since we are dealing with many issues including his hematuria, his COVID-19 pneumonia, his right-sided pneumothorax which is a complication of COVID-19 infection and his renal status with worsening renal picture. Reevaluated today on 02/12/21, patient remains in the ICU, intubated and mechanically ventilated. Patient was on assist control rate of 32 tidal volume 400 FiO2 45% and PEEP of 8 and he is on fentanyl at 1 mcg/kg/h and propofol at 25 mcg/kg/m. Patient is sedated, however his ventilatory requirement does not seem to be much, and there is a significant improvement in the air leak noted through the chest tube which was noted yesterday. And I was able to cut down his volume status 400 and kept him on the same rate. As a matter of fact I discontinued all his sedation today and I gave the patient a trial of IMV with pressure support of 10 backup rate of 8 on the IMV. And kept him on a PEEP of 8. Patient was gradually waking up, family is at bedside, and I updated the family on his status. His ABG today showed a pO2 of 86 pCO2 of 40 pH of 7.49, and this was on 50% FiO2. His complete metabolic profile seems to be relatively normal. Electrolytes are normal BUN however is 68 and creatinine is 1.43. If is improved compared to creatinine the last 2 days. Lovenox remains on hold, hematuria subsided, and we continued to have problem with placement of the orogastric tube, no GI coverage, and surgery is of decided whether to proceed with EGD at this point are not. Waiting to hear from surgery although they were notified over 24 hours ago, patient in the meantime is receiving TPN. We will have to make a decision regarding his Lovenox and possibly arrange for the patient to have IVC filter placement if there is going to be absolute contraindication to Lovenox. At this point there is no evidence of significant hematuria. And I may restart the patient back on Eliquis or Lovenox. Reevaluated today on 02/13/21, patient remains in the ICU, intubated and mechanically ventilated, and I had to place him back on Nimbex last night. He is presently on propofol at 30 mcg/kg/m, he is also on Nimbex at 2 mcg/kg/m. Patient is receiving Dilaudid as needed. ABG today showed a pO2 of 135 pCO2 63 pH of 7.24, and he was on assist control rate of 32 tidal volume 450 FiO2 75% and PEEP was at 8 tried patient on higher PEEP, however he was not doing well on higher PEEP, and I have noticed that whenever the patient goes on higher PEEP, we noticed more volume loss through the Pleur-evac/chest tube, hence I chose not to put him on higher PEEP today although there is no significant air leak noted today. I chose to keep the patient on assist control rate of 36 tidal volume remains at 450 cut down his FiO2 to 65 and possibly will cut it down further. PEEP remains at 8. Chest x-ray is showing cyst and bilateral infiltrates consistent with COVID-19 pneumonia and complete resolution of his right-sided pneumothorax tubes and catheters seem to be in proper positions. Last night I placed the patient back on Lovenox, and there is no evidence of further episodes of bleeding no further hematuria noted. Medications-sevilla the patient remains on albuterol, amiodarone is presently on hold because he could not place a orogastric tube in this patient. We have also tried including surgical staff, and we'll try again in the next 24 hours. In the meantime patient remains on TPN. Patient is also on ascorbic acid, Peridex, vitamin D, Nimbex was placed on hold today, Decadron 6 mg IV push daily, Lovenox 80 mg subcu twice a day, Lasix when necessary, he is not requiring norepinephrine today. Objective - Vital Signs Vital signs: Vital Signs Temp 98.0 F 02/13/21 12:00 Pulse 84 02/13/21 13:00 Resp 28 H 02/13/21 13:00 BP 105/59 02/13/21 13:00 Pulse Ox 93 L 02/13/21 13:00 Intake & Output 02/12/21 02/13/21 02/13/21 18:59 06:59 18:59 Intake Total 2775.688 9622.201 586.505 Output Total 1346 780 780 Balance 80.750 725.201 -193.495 Weight 77.2 kg 77.2 kg Intake: IV 881 881 216 Pressure Bag 0.9 sodium 36 36 21 chloride Sodium Chloride 0.9% 1, 845 845 195 000 ml @ 75 mls/hr IV . [id number] [facility] Rx#:[id number] Intake, IV Titration 545.750 624.201 370.505 Amount Cisatracurium 200 mg In 0 127.733 Sodium Chloride 0.9% 180 ml @ 2 MCG/KG/MIN 8.709 mls/hr IV .[id number] [facility] Rx #:[id number] Clevidipine Butyrate 25 52.933 28 mg In Empty Bag 1 bag @ 1 MG/HR 2 mls/hr IV .Q24H [facility] Rx#:[id number] Mvi, Adult No.4 with Vit 370 70 K 10 ml Trace (Conc-1Ml/ Dose) 1 ml Sodium Chloride 4Meq/ml Vial 32 meq Potassium Chloride 20 meq Calcium Gluconate 1 gm In Amino Acids 5 %/ Dextrose 20 % 1,000 ml @ 70 mls/hr IV .BY DURATION [facility] Rx#:[id number] Norepinephrine 4 mg In 392.181 172.772 Sodium Chloride 0.9% 250 ml @ 0.05 MCG/KG/MIN 13. 826 mls/hr IV .[id number] [facility] Rx#:[id number] Sodium Chloride 4Meq/ml 70 Vial 32 meq Potassium Chloride 20 meq Calcium Gluconate 1 gm In Amino Acids 5 %/Dextrose 20 % 1 ,000 ml @ 70 mls/hr IV . BY DURATION [facility] Rx#: [id number] fentaNYL (PF). 1,000 mcg 22.817 In Sodium Chloride 0.9% 80 ml @ 1 MCG/KG/HR 7.4 mls/hr IV .[id number] [facility] Rx #:[id number] propofoL 1,000 mg In 100 134.020 Empty Bag 1 bag @ Titrate IV .Q0M [facility] Rx#: [id number] Output: Chest Tube Drainage 120 340 Right Lower 120 340 Urine 1225 780 440 Stool 1 Other: Voiding Method Indwelling Catheter Indwelling Catheter Indwelling Catheter ABP, PAP, CO, CI - Last Documented Arterial Blood Pressure 129/43 - Exam Physical Exam: Revealed a 75-year-old white male , intubated and mechanically ventilated. Sedated and paralyzed this morning. Head: Atraumatic normocephalic. HEENT:[Neck is supple.] [No neck masses.] [No thyromegaly.] [No JVD.] Chest: Crackles at the bases bilaterally. No rhonchi and no wheezes, right- sided chest tube is noted connected to Pleur-evac, no air leak noted. Cardiac Exam: [Normal S1 and S2, no S3 gallop, no murmur.] Abdomen: [Soft, nontender, no megaly, no rebound, no guarding, normal bowel sounds.] Extremities: [No clubbing, no edema, no cyanosis.] Neurological Exam: Not assessed today, patient is sedated and paralyzed, however yesterday he was arousable, follows simple instructions, generally weak, but later on off sedation became extremely agitated and asynchronous with the ventilator, had to place him back on Nimbex in order to ventilate improperly. And he remains on Nimbex which I will try to discontinue today and I will keep him on propofol Psychiatric: Did not assessed today patient is paralyzed and sedated Skin: No rashes. - Labs CBC & Chem 7: 02/13/21 04:18 02/13/21 04:18 Labs: Abnormal Lab Results - Last 24 Hours (Table) 02/12/21 02/12/21 02/12/21 Range/Units 14:38 17:22 23:12 WBC (3.8-10.6) k/uL RBC (4.30-5.90) m/uL Hgb (13.0-17.5) gm/dL Hct (39.0-53.0) % MCV (80.0-100.0) fL MCHC (31.0-37.0) g/dL RDW (11.5-15.5) % Neutrophils # (1.3-7.7) k/uL Lymphocytes # (1.0-4.8) k/uL ABG pH (7.35-7.45) ABG pCO2 50 H (35-45) mmHg ABG pO2 61 L (83-108) mmHg ABG HCO3 28 H (21-25) mmol/L ABG Total CO2 30 H (19-24) mmol/L ABG O2 Saturation 88.6 L (94-97) % Chloride (98-107) mmol/L BUN (9-20) mg/dL Creatinine (0.66-1.25) mg/dL Glucose (74-99) mg/dL POC Glucose (mg/dL) 201 H 267 H (75-99) mg/dL Calcium (8.4-10.2) mg/dL 02/13/21 02/13/21 02/13/21 Range/Units 04:18 04:18 06:00 WBC 22.2 H (3.8-10.6) k/uL RBC 3.16 L (4.30-5.90) m/uL Hgb 9.0 L (13.0-17.5) gm/dL Hct 31.6 L (39.0-53.0) % MCV 100.1 H (80.0-100.0) fL MCHC 28.6 L (31.0-37.0) g/dL RDW 16.4 H (11.5-15.5) % Neutrophils # 21.4 H (1.3-7.7) k/uL Lymphocytes # 0.1 L (1.0-4.8) k/uL ABG pH 7.24 L (7.35-7.45) ABG pCO2 63 H (35-45) mmHg ABG pO2 135 H (83-108) mmHg ABG HCO3 27 H (21-25) mmol/L ABG Total CO2 29 H (19-24) mmol/L ABG O2 Saturation 98.5 H (94-97) % Chloride 113 H (98-107) mmol/L BUN 60 H (9-20) mg/dL Creatinine 1.54 H (0.66-1.25) mg/dL Glucose 236 H (74-99) mg/dL POC Glucose (mg/dL) (75-99) mg/dL Calcium 7.7 L (8.4-10.2) mg/dL 02/13/21 Range/Units 11:12 WBC (3.8-10.6) k/uL RBC (4.30-5.90) m/uL Hgb (13.0-17.5) gm/dL Hct (39.0-53.0) % MCV (80.0-100.0) fL MCHC (31.0-37.0) g/dL RDW (11.5-15.5) % Neutrophils # (1.3-7.7) k/uL Lymphocytes # (1.0-4.8) k/uL ABG pH (7.35-7.45) ABG pCO2 (35-45) mmHg ABG pO2 (83-108) mmHg ABG HCO3 (21-25) mmol/L ABG Total CO2 (19-24) mmol/L ABG O2 Saturation (94-97) % Chloride (98-107) mmol/L BUN (9-20) mg/dL Creatinine (0.66-1.25) mg/dL Glucose (74-99) mg/dL POC Glucose (mg/dL) 121 H (75-99) mg/dL Calcium (8.4-10.2) mg/dL Assessment and Plan Assessment: #1. Acute hypoxic respiratory failure secondary to COVID-19 pneumonia, not vaccinated. Symptoms started on 01/17, patient took ivermectin on outpatient basis, refused Remdesivir currently on Decadron is also on prophylactic an ticoagulation, he is on COVID-19 cocktail. Received Baricitinib, on 1217, patient was transferred to the ICU and he was intubated. Remains intubated and mechanically ventilated since 02/02. He is on assist control mode of mechanical ventilation. Sedated Patient is now on a combination of Baricitinib and Decadron. He was found to have bilateral lower extremity DVT. Started on anticoagulations therapy however the patient now developed hematuria held Lovenox for about 24 hours, but he is back on Lovenox full dose 80 mg subcu twice a day now. #2. Elevated inflammatory markers related to the above, improving. #3. Elevated transaminases, improving #4. History of COPD with diffuse centrilobar emphysema #5. Former smoker #6. Coronary artery disease with previous coronary artery bypass grafting 4 in 2018 #7. Mitral valve repair #8. Crohn's disease #9. Hypertension #10. History of systolic CHF #11 new-onset atrial fibrillation on 02/07/21, started patient on amiodarone. Now in sinus rhythm, amiodarone is on hold orally because the patient does not have orogastric axis. #12 acute blood loss anemia, exact source is not clear, this is most likely related to hematuria. Which has resolved in the last 24 hours. He shouldn't is back on Lovenox. #13 gross hematuria, to be addressed today again by urology #14 right-sided pneumothorax/barotrauma/secondary to COVID-19 infection/pneumonia. Requiring chest tube placement on 02/11/21. Chest tube remains in place. Not quite ready to be removed. #15 acute kidney injury, being addressed by nephrology on the case. Renal status is stable today. Creatinine is 1.5. #[address] orogastric tube general surgery or GI to evaluate. In the meantime patient is receiving TPN. Recommendation: Discontinue Nimbex today. But continue sedation. Continue ventilatory support. Patient failed weaning trial yesterday. And had to be placed back on Nimbex as he became extremely agitated at the end of the day and a chest x-ray showed worsening pneumothorax, patient was not ventilating properly with pressure support mode of mechanical ventilation and backup IMV rate. Continue COVID-19 cocktail as above. Hold amiodarone. Continue TPN , until orogastric tube is place, then we could consider enteral feeding. Restart Lovenox 80 mg subcu twice a day and watch for any potential hematuria again. Consider IVC filter placement if there is absolute contraindication to anticoagulation therapy. Patient did have DVT. Continue to monitor renal profile Continue GI prophylaxis. Nephrology is evaluating his renal status. Continue to monitor inflammatory markers. Remains DO NOT RESUSCITATE CODE STATUS, discussed his condition again with the , and explained to her to give us more time and decide whether the patient is getting worse, at least at this point in time the patient seems to be doing fairly well, and he may pull through this. We will discussing with the if he needs to have tracheostomy in the next few days. Hopefully patient will wean and extubate without requiring tracheostomy. Remains quite ill and prognosis remains guarded and family is very well aware of this. Critical care time is over 30 minutes. Time with Patient: Greater than 30
--- NOTE | 2021-02-13 15:10 | PN ---
PROGRESS NOTE Patient is seen for followup for acute kidney injury. Patient has underlying COVID pneumonia. He is currently on the vent. Renal function has been improving. Serum creatinine peaked at 1.8, now down to 1.4. Initial creatinine was 0.86 on 01/24/2021. The patient was started on IV fluids. His urine output had dropped but has picked up now after IV hydration. Currently, urine output is at 60-50 mL an hour. The patient is not on any pressors. He was started on TPN yesterday. PHYSICAL EXAMINATION: On examination today, patient remains on the vent. FiO2 is at 60%. Heart rate 84 per minute. Patient is afebrile. Examination of lower extremity shows no significant edema. QUICK TECHNICIAN exam cannot be performed. Patient is maintained on sedation. LABS: Show sodium 145, potassium 4.0, chloride 113, BUN 60, serum creatinine 1.54, hemoglobin 9.0 g/dL. ASSESSMENT: 1. Acute kidney injury, acute tubular necrosis, currently nonoliguric component of hypovolemia currently improved with IV hydration. 2. Acute hypoxic respiratory failure secondary to COVID pneumonia. 3. Bilateral lower extremity DVT maintained on anticoagulation. 4. Coronary artery disease with history of coronary artery bypass surgery and history of mitral valve repair. 5. Metabolic alkalosis improved status post Diamox. 6. Inability to place orogastric tube. Currently maintained on TPN. Surgery is on the case with plans for trial of insertion of OG tube tomorrow. PLAN: Continue with the IV hydration. Repeat labs in a.m. Avoid nephrotoxic agents. MMODL / IJN: [id number] /
[2021-02-13 17:03] LABS: Glucose,Whole Blood 252 mg/dL (75-99)
[2021-02-13 17:40] LABS: Glucose,Whole Blood 252 mg/dL (75-99)
[2021-02-13] MEDS: HYDROmorphone 1 MG/ML 1 ML SYRINGE IVP PRN (19:31)
--- NOTE | 2021-02-13 20:56 | P.PN ---
Progress Note - Text Progress Note Date: 02/13/21 Hospital course: 74-year-old patient who follows with Dr. Mauricio Keith. Tonic stable medical conditions include hypertension, Crohn's disease, nephrolithiasis, BPH, hypertension, tinnitus, COPD, CAD with bypass. EF of 20-25%. Presented with shortness of breath. Diagnosed with COVID 19 on January 18 symptoms starting 1 day before. He was found to be hypoxic at home. Upon arrival he was 85%. Patient declined treatment with Remdesivir. Patient had been taking ivermectin as outpatient. She requested this to be continued. This was declined by the admitting team as this was not approved treatment. Patient not vaccinated against COVID. She did with subcu Lovenox and dexamethasone. January 24: Patient feeling better. On 3 L nasal cannula. Oral intake fair. Up in a bed. Slight cough. January 25: Sitting up in a recliner. Tired. Has some chest tightness. 92% on 4 L. Oral intake good. January 26: Bit more short of breath. Oxygen requirement: Up to 15 L. Had low-grade fever. Eating about 50-75%. Tired. Up in a chair. January 27: Short of breath. Sitting at the edge of the bed. 15 L nasal cannula. Decreased appetite. January 28: Laying in bed. Tired. Short of breath. On 15 L nonrebreather. Oral intake fair. Started on Baricitinib by pulmonary January 29: Patient is become more short of breath. Placed on BiPAP. Decreased oral intake. Tired. On Baricitinib, dexamethasone. January 30: Sitting up in a chair. Using BiPAP. Short of breath. Decreased oral intake. On Baricitinib) dexamethasone. Acute PE on CT chest. Started on eliquis January 31: Sitting at the edge of the bed. BiPAP. Short of breath. Tired. On eliquis, on Baricitinib, dexamethasone. February 01: Laying in bed. Short of breath. BiPAP. Tired. On Baricitinib, dexamethasone, eliquis. Eating reasonably well. February 02: Rather tired short of breath BiPAP 100%. On dexamethasone, eliquis February 03: ICU: Intubated yesterday. Prone position. Ventilator FiO2 70 PEEP of 12. Drips included propofol and Nimbex. February 08: ICU: Ventilator FiO2 52 PEEP of 14. 2 feeding at 30 mL an hour. Went into an episode of rapid A. fib last night. Given IV amiodarone. Current drips include norepinephrine, Nimbex, propofol, fentanyl February 09: ICU: Ventilator: FiO2 40 and a PEEP of 14. 2 feeding at 30 mL an hour. Drips include fentanyl, propofol. Atrial fibrillation controlled February 10: ICU: On the ventilator. FiO2 15 a PEEP of 14. Drips included propofol and fentanyl. Atrial fibrillation controlled. Earlier hemoglobin dropped to 6.7. No evidence of bleeding. 1 unit of blood ordered. February 11: ICU: Ventilator 50/6. Patient developed significant hematuria overnight. Neurology consulted. Patient developed a spontaneous right-sided pneumothorax. Chest tube placed. Trouble with OG tube placement. February 12: ICU: Ventilator 50/8. Patient been off sedation. Chest tube on the right side. About 2 and 40 mL in last 24 hours. Patient is on TPN. No lipids. Telemetry shows sinus rhythm. Patient's daughter and Cleviprex today. Bladder was flushed. Some clearing of the hematuria. February 13: ICU: Ventilator FiO2 60. Weight. TPN. Chest tube in place. Telemetry shows sinus rhythm. His include norepinephrine propofol. Nimbex taken off. Urine is more orange colored. Review of systems: Patient on ventilator Active Medications Acetaminophen (Acetaminophen Tab 325 Mg Tab) 650 mg PO Q6HR PRN PRN Reason: Fever and/ or Pain Last Admin: 02/02/21 06:07 Dose: 650 mg Documented by: Albuterol Sulfate (Albuterol Hfa Inhaler) 2 puff INHALATION RT-QID [facility] Last Admin: 02/13/21 20: Dose: Not Given Documented by: Albuterol Sulfate (Albuterol Hfa Inhaler) 4 puff INHALATION RT-QID PRN PRN Reason: Shortness Of Breath Or Wheezing Amiodarone HCl (Amiodarone 200 Mg Tab) 200 mg PO TID [facility] Stop: 02/15/21 11:16 Last Admin: 02/13/21 20:29 Dose: Not Given Documented by: Artificial Tears (Artificial Tears-Hypromellose Drops 15 Ml Btl) 2 drops BOTH EYES Q4HR [facility] Last Admin: 02/13/21 17:44 Dose: Not Given Documented by: Ascorbic Acid (Ascorbic Acid 500 Mg Tab) 2,000 mg PO DAILY [facility] Last Admin: 02/13/21 08:58 Dose: Not Given Documented by: Chlorhexidine Gluconate (Chlorhexidine Gluconate 15 Ml Cup) 15 ml MUCOUS MEM BID [facility] Last Admin: 02/13/21 20:31 Dose: 15 ml Documented by: Cholecalciferol (Cholecalciferol 125 Mcg (5000 Iu) Tablet) 125 mcg PO DAILY [facility] Last Admin: 02/13/21 08:58 Dose: Not Given Documented by: Cyanocobalamin (Cyanocobalamin 500 Mcg Tab) 4,000 mcg PO DAILY [facility] Last Admin: 02/13/21 08:58 Dose: Not Given Documented by: Dexamethasone Sodium Phosphate (Dexamethasone Sod Phosphate 10 Mg/Ml 1 Ml Vial) 6 mg IVP DAILY [facility] Last Admin: 02/13/21 09:54 Dose: 6 mg Documented by: Enoxaparin Sodium (Enoxaparin 80 Mg/0.8 Ml Syringe) 80 mg SQ BID [facility] Last Admin: 02/13/21 20:31 Dose: 80 mg Documented by: Hydromorphone HCl (Hydromorphone 1 Mg/Ml 1 Ml Syringe) 1 mg IVP Q3HR PRN PRN Reason: pain Last Admin: 02/13/21 19:31 Dose: 1 mg Documented by: Propofol 1,000 mg/ IV Solution 100 mls @ 0 mls/hr IV .Q0M [facility]; Protocol Last Titration: 02/13/21 19:37 Dose: 50 mcg/kg/min, 23.16 mls/hr Documented by: Cisatracurium Besylate 200 mg/ (Sodium Chloride) 200 mls @ 8.709 mls/hr IV .[id number] [facility]; Protocol Last Titration: 02/13/21 11:37 Dose: 0 mcg/kg/min, 0 mls/hr Documented by: Norepinephrine Bitartrate 4 mg (/ Sodium Chloride) 254 mls @ 13.826 mls/hr IV .[id number] [facility]; Protocol Last Titration: 02/13/21 19:37 Dose: 0.05 mcg/kg/min, 13.826 mls/hr Documented by: Parenteral Vitamin Supplement 10 ml/ Zinc/Copper/Manganese/Selenium 1 ml/ Sodium Chloride 32 meq/ Potassium Chloride 20 meq/ Calcium Gluconate 1 gm/Amino Acids/Dextrose 1,039 mls @ 70 mls/hr IV .BY DURATION [facility] Stop: 02/13/21 21:20 Last Infusion: 02/13/21 13:50 Dose: 65 mls/hr Documented by: Sodium Chloride 32 meq/Potassium Chloride 20 meq/Calcium Gluconate 1 gm/ Amino Acids/Dextrose 1,028 mls @ 70 mls/hr IV .BY DURATION [facility] Stop: 02/13/21 21:20 Last Admin: 02/13/21 13:45 Dose: Not Given Documented by: Clevidipine 25 mg/ IV Solution 50 mls @ 2 mls/hr IV .Q24H [facility]; Protocol Last Titration: 02/12/21 19:44 Dose: 0 mg/hr, 0 mls/hr Documented by: Sodium Chloride (Saline 0.9%) 1,000 mls @ 20 mls/hr IV .Q24H [facility] Last Admin: 02/12/21 18:54 Dose: 20 mls/hr Documented by: Parenteral Vitamin Supplement 10 ml/ Zinc/Copper/Manganese/Selenium 1 ml/ Potassium Phosphate 9 mmol/ Sodium Chloride 32 meq/ Calcium Gluconate 1 gm/ Amino Acids/Dextrose 1,032 mls @ 65 mls/hr IV .BY DURATION [facility]ERY[facility] Potassium Phosphate 9 mmol/Sodium Chloride 32 meq/Calcium Gluconate 1 gm/ Amino Acids/Dextrose 1,021 mls @ 65 mls/hr IV .BY DURATION [facility] Insulin Aspart (Insulin Aspart (Novolog) 100 Unit/Ml Vial) 0 unit SQ Q6H [facility]; Protocol Last Admin: 02/13/21 18:00 Dose: 10 unit Documented by: Lorazepam (Lorazepam 2 Mg/Ml Inj) 1 mg IV Q4HR PRN PRN Reason: Anxiety Last Admin: 02/12/21 15:34 Dose: 1 mg Documented by: Miscellaneous Information (Potassium Replacement Protocol 1 Each Misc) 1 each MISCELLANE DAILY PRN; Protocol PRN Reason: Per Protocol Tamsulosin HCl (Tamsulosin 0.4 Mg Cap.Er.24h) 0.4 mg PO BID [facility] Last Admin: 02/13/21 20:29 Dose: Not Given Documented by: Zinc Sulfate (Zinc Sulfate 220 Mg Cap) 220 mg PO DAILY [facility] Last Admin: 02/13/21 08:59 Dose: Not Given Documented by: On examination: VITAL SIGNS: Afebrile, 83, 36, 108/60, 92% on the ventilator GENERAL APPEARANCE: , sedated, intubated, right-sided chest tube. Slight orange urine in the Mary catheter: RESPIRATORY: Respiratory effort increased. PSYCHIATRY: Unable to assess, sedated Rest of the exam per pulmonary and nursing INVESTIGATIONS, reviewed in the clinical context: February 13: White count 22.2 hemoglobin 9 platelets 427 ABG: PH 7.2 pCO2 63 pO2 135 potassium 4. 60 creatinine 1.5 for February 12: Sodium 142 BUN 68 creatinine 1.43 February 11: White count 12.7 hemoglobin 9.7 platelets 432 potassium 4.6 BUN 72 creatinine 1.8 seventh. Chest x-ray shows right-sided pneumothorax February 10: WBC 10.6 hemoglobin 6.7 platelets. Potassium 4.4 BUN 72 creatinine 1.4 to February 09: White count 9.5 hemoglobin 8.7 platelets 374 ABG: PCO2 35 pO2 56 p otassium 5 creatinine 1.07. Chest x-ray: Bilateral infiltrates February 08: WBC 11.5 hemoglobin 8 platelets 450 potassium 4.7 BUN 63 creatinine 1.47 Doppler ultrasound [February 05] DVT in the left popliteal vein and right lower extremity superficial vein February 03: W BC 21.5 hemoglobin 8.8 platelets 267 ABG: PH 7.25 pCO2 34 pO2 93 potassium 4.6 creatinine 1.39 February 02: White count 18.4 hemoglobin 9. ABG: PH 7.5 pO2 58 creatinine 1.18. Chest x-ray: Worsening February 01: White count 16.7 hemoglobin 9.7 d-dimer greater than 34 BUN 45 creatinine 1.27 January 31: WBC 13.1 COVID 10.3 d-dimer greater than 34 potassium 4.5 creatinine 1.26 CRP 3.5 January 30: WBC 10.4 hemoglobin 9.8 platelets 145 potassium 4.5 creatinine 1.4. AST [address] angiogram for PE [January 30] new Pasia occlusive embolism segmental bronchus right lower lobe with segmental extension. Doppler ultrasound [January 29]: Superficial thrombosis in the right lesser saphenous vein. January 29: D-dimer greater than 34 potassium 4.4 BUN 67 creatinine 1.61 AST 174 ALT 73 January 28: WBC 10.2 hemoglobin 11.4 platelets 154 d-dimer greater than 34 sodium 136 potassium 4.9. 43 creatinine 1.29 January 27: WBC 11.8 hemoglobin 10.5 January 26: White count 11.8 hemoglobin 11.5 d-dimer 12.6 CRP 7.3 White count 5.9 hemoglobin 12.3 platelets 162 d-dimer 0.93 potassium 4.1 creatinine 0.86 CRP 4.4 Admission labs: Pro-calcitonin 0.04 Coronavirus [PCR]: Detected D-dimer 0.83 EKG tracing personally reviewed by me-sinus bradycardia. Rate 55 Chest x-ray: biLateral infiltrates Assessment and plan: -Bilateral COVID 19 pneumonitis: Not improving Dexamethasone. Subcu Lovenox. (declined Remdesivir. patient was taking ivermectin at home). Baricitinib given -Spontaneous right-sided pneumothorax on February 11 Right-sided chest tube -Acute severe hematuria.: Improving Follow H&H. Urology consulted -Acute pulmonary embolism, along with DVT: Lovenox subcu -Septic shock:better Received IV levo fed -Acute hypoxic respiratory failure from COVID 19: Not improving Intubated February 02. On the ventilator -Essential hypertension: Currently blood pressure is running low -Chronic Crohn's disease Pentasa 1000 milligrams 3 times a day - nephrolithiasis Follow clinically -Acute kidney injury. Possibly ATN from COVID 19 causing infection and hypotension: Slow to respond Follow nephrology -Paroxysmal atrial fibrillation with episodes of rapid ventricular rate: Currently sinus rhythm Amiodarone -BPH Flomax 0.4 mg twice a day -COPD in a previous smoker Pulmicort -Chronic tinnitus with hearing impairment -CAD with bypass Aspirin, beta billy, Lipitor -Hyperlipidemia Lipitor 40 mg daily -Acute hepatitis: Improving hold Lipitor. Follow LFT -Full code -TPN Hematuria clearing up. Right-sided chest tube. On TPN. Therapeutic dose of Lovenox. Off Nimbex. Prognosis guarded.
[2021-02-13] MEDS: SODIUM CHLORIDE 0.9% 1,000 ML IV SCH (21:30)
[2021-02-13 23:27] LABS: Glucose,Whole Blood 225 mg/dL (75-99)
[2021-02-14] MEDS: 1: MVI, ADULT NO.4 WITH VIT K 10 ML, TRACE (CONC-1ML/DOSE) 1 ML, POTASSIUM PHOSPHATE 9 M IV SCH ×12 (02:19→17:26)
[2021-02-14] MEDS: ARTIFICIAL TEARS-HYPROMELLOSE DROPS 15 ML BTL BOTH EYES SCH ×5 (04:17→20:50)
[2021-02-14 04:47] LABS: Calcium 7.8 mg/dL (8.4-10.2); Magnesium 2.2 mg/dL (1.6-2.3); Phosphorus 1.7 mg/dL (2.5-4.5); Potassium 3.9 mmol/L (3.5-5.1)
[2021-02-14] MEDS ORDERED: POTASSIUM CHLORIDE 20 MEQ in WATER FOR INJECTION 1 100ML.BAG IVPB STA (05:24)
[2021-02-14] MEDS ORDERED: SODIUM CHLORIDE 0.9% IVPB STA (05:24)
[2021-02-14] MEDS ORDERED: POTASSIUM CHLORIDE IVPB STA (05:24)
[2021-02-14] MEDS ORDERED: POTASSIUM CHLORIDE 20 MEQ in SODIUM CHLORIDE 0.9% 100 ML IVPB STA (05:51)
[2021-02-14 05:54] LABS: ABG Base Excess 1.1 mmol/L; ABG HCO3 27 mmol/L (21-25); ABG Oxygen Saturation 97.6 % (94-97); ABG PCO2 49 mmHg (35-45); ABG PH 7.35 (7.35-7.45); ABG PO2 86 mmHg (83-108); ABG TCO2 28 mmol/L (19-24)
[2021-02-14 05:59] LABS: Glucose,Whole Blood 188 mg/dL (75-99)
[2021-02-14] MEDS: INSULIN ASPART (NovoLOG) 100 UNIT/ML VIAL SQ SCH ×3 (06:02→18:07)
[2021-02-14] MEDS: NOREPINEPHRINE 4 MG in SODIUM CHLORIDE 0.9% 250 ML IV SCH (06:03)
[2021-02-14] MEDS: CISATRACURIUM 200 MG in SODIUM CHLORIDE 0.9% 180 ML IV SCH (06:06)
[2021-02-14 06:21] LABS: Allen Test Performed? no
--- NOTE | 2021-02-14 07:53 | XR ---
EXAMINATION TYPE: XR chest 1V portable DATE OF EXAM: 02/14/2021 COMPARISON: 02/13/2021 HISTORY: SOB, Follow Up FINDINGS: Indwelling tubes and catheters are unchanged. Right-sided chest tube is in place. No sizable pneumoth orax noted at this time. Reticulonodular infiltrates persist throughout both lung hernandez greatest at the right lower lobe. Sma ll right-sided effusion. Stable appearance of the cardio-mediastinal structures at this time. IMPRESSION: 1. Stable portable chest. Clinical correlation and follow up until resolution is recommended.
--- NOTE | 2021-02-14 08:01 | P.PN ---
Subjective Progress Note Date: 02/14/21 This is a 75-year-old male patient who follows with Dr. Mauricio Keith is his primary care provider. He has a history of coronary artery disease with previous coronary artery bypass grafting, mitral valve replacement, hypertension, hyperlipidemia, chronic obstructive pulmonary disease, former smoker, Crohn's disease. On January 17 the patient started having symptoms of fever cough congestion weakness and was tested for COVID-19 on January 18. He found out his results on January 21 and was told to stay home and rest unless his symptoms worsened. He was given doxycycline and prednisone 20 mg twice a day. His brought him into the emergency room here today as his oxygen levels were dropping at home. Chest x-rays revealing patchy bilateral interstitial pneumonia with underlying COPD. White count 2.8. Hemoglobin 12.9. Platelets 149. Lymphocytes 0.2. D-dimer 0.83. Sodium 133. Potassium 4.7. Creatinine 1.06. Glucose 154. AST 122. ALT 75. LDH 1082. C-reactive protein 6.4. Chronic virus by PCR positive. The patient is not vaccinated. He is seen today in the emergency room. Awake and alert in no acute distress. Sitting up on a stretcher. He is 85% O2 saturation on room air. 93% on 2 L per nasal cannula. Afebrile. Hemodynamically stable. He's been initiated on Lovenox and vitamin supplements. He will be started on Decadron. We discussed with him the possibility for Remdesivir which he is reluctant to receive. His who is sitting next to him is also having symptoms and she plans to go get tested today. The patient is seen today 01/24/2021 in follow-up on the observation unit. He is currently sitting up in bed. Awake and alert in no acute distress. He is feeling quite a bit better. Feeling stronger today. He did decline Remdesivir. He has been maintained on Lovenox, Decadron, vitamin supplements. He is currently maintaining O2 saturation in the low 90s on 3 L/m per nasal cannula. He's been afebrile. Hemodynamically stable. Chest x-ray continues to show increased bilateral infiltrates. White count 5.9. Hemoglobin 12.3. D-dimer 0.93. Sodium 134. Potassium 4.1. Creatinine 0.86. Glucose 158. AST 87. ALT 62. LDH 81. C-reactive protein 4.4. On 01/25/2021 patient seen in follow-up on medical surgical floor. He is awake and alert, in no acute distress, breathing comfortably, although still has a persistent cough, does have exertional dyspnea. He is currently on 4 L of oxygen and his pulse ox is borderline between 87-92%. No fever or chills, blood pressure is been stable, patient has been ambulate into the bathroom. Today's chest x-ray shows progressive changes in the lungs with increasing bilateral infiltrates. Patient remains on Decadron 6 mg daily, prophylactic Lovenox, he is on inhaled [place] dilators, he is on COVID-19 vitamins. His labs from yesterday showed a d-dimer of 0.93, electrolytes and renal profile were fairly unremarkable, his AST and ALT were improving and were down to 87 and 62 respectively, his inflammatory markers showed a trend for improvement with LDH at 881, and CRP of 4.4. Reevaluated today on 01/26/2021, patient remains on the regular medical floor, his condition got a bit worse yesterday, he is now on 15 L nasal cannula high flow, and his O2 saturation is ranging between 90 up to 96%. However the patient does not seem to be in any distress, he is afebrile with a temp of 97 9 he had a T-max of 100.4 last night. Vital signs are stable. Blood pressure 113/43. Previous count is 11.8 hemoglobin is 11.5, d-dimer went up to 12.66, however workup for pulmonary embolism and venous Doppler came back negative yesterday last night. Patient is on the COVID-19 cocktail, he refused taking remdesivir when he qualified, he is on Lovenox at 40 mg subcu daily, he is also on vitamin D, vitamin C, zinc, and he is on Decadron 6 mg by mouth daily. Evaluated today on 02/07/2021, patient remains in the ICU, intubated and mechanically ventilated. He is presently on assist control rate of 30 tidal volume 420 FiO2 50% PEEP of 14. ABG showed a pO2 of 60 pCO2 of 71 pH of 7.39. A shunt is on propofol at 14 Nimbex at 1.5, he is also on Dilaudid when necessary, IV fluid at KVO. His renal profile showed a BUN of 57 creatinine 1.8. While I was evaluating the patient, shortly after the patient developed an episode of atrial fibrillation with RVR, recommended amiodarone to be started as per protocol, and starting amiodarone drip on this patient. Patient is not ready for any weaning trials at this point specially with his new onset atrial fibrillation with RVR. His electrolytes are normal BUN is 57 creatinine 1.18. She count is 12.4 hemoglobin is 8.1. X-ray continues to show diffuse bilateral infiltrates. Not much of a change or improvement noted. Patient remains on the COVID-19 cocktail. Remains on Decadron 6 mg IV push daily. Lovenox was increased to 80 mg subcu twice a day. Patient is also on Baricitinib. Amiodarone was added today. Reevaluated today on 02/08/21, patient remains in the ICU intubated and mechanically ventilated. He is now on assist control rate of 30 tidal volume 420 FiO2 60% and I cut it down to 50% PEEP is at 14. ABG today showed a pO2 of 60 pCO2 71 pH of 7.39. His electrolytes are normal BUN is 63 creatinine 1.47 WBC count is 11.5 hemoglobin is 8.0. Chest x-ray is not showing much of an improvement, continues to have bilateral infiltrates. Patient is on multiple drips including fentanyl at 1, propofol at 3 0 mcg/kg/m, Nimbex at 1.5 mcg/kg/m amiodarone 0.5 mg/m. Patient is on norepinephrine at 0.03 mcg/kg/m is also on enteral feeding/utilizing Nepro at 32 mL per hour and sputum cultures are normal nondiagnostic. Patient is now on oral amiodarone at 20 mg 3 times a day, and IV amiodarone has been discontinued. Patient is on ascorbic acid, I have discontinued his colazal, and it may confuse the picture because it is known to cause pneumonitis/drug-induced pneumonitis. I kept the patient on Baricitinib, remains on Lovenox 80 mg subcu twice a day specially with his atrial fibrillation and RVR although today he went back to normal sinus rhythm. Patient remains on the COVID-19 cocktail. At this point I don't see any room to wean or extubated the patient, he will remain intubated mechanically ventilated and sedated. I would also keep him paralyzed since the patient is requiring relatively high PEEP, and chest x-ray is not showing much improvement he still requiring relatively high FiO2 it was 60% and I cut it down today to 50% Reevaluated today on 02/09/2021, patient remains in the ICU intubated and mechanically ventilated. He is now on assist control rate of 30 tidal volume 420 FiO2 50% PEEP is 14. ABG is marginal with a pO2 of 56 pCO2 of 75 pH of 7.39. Remains on propofol at 30 mcg/kg/m fentanyl 20 mcg/kg/h Nimbex at 1.5 mcg/kg/m he is off norepinephrine presently he is on enteral feeding and he is on IV fluid at KVO. Chest x-ray continues to show bilateral infiltrates not much of a change in the last 24 hours. Labs including basic metabolic profile and CBC were reviewed, seem to be relatively unremarkable. Today I suggested that we stop Nimbex and try to maintain the patient mostly on propofol and fentanyl if possible, and hopefully the patient couldn't tolerate coming off par alytics. In the meantime the patient remains on the treatment as noted above. Reevaluated today on 02/10/21, patient remains in the ICU, intubated and mechanically ventilated. He is presently on assist control rate of 30 tidal volume 420 FiO2 50% PEEP is down to 14. His ABG showed a pO2 of 64 pCO2 of 66 pH of 7.44. Patient is off Nimbex today, and I have kept him on propofol at 50 mcg/kg/m he is also on fentanyl. At 1 mcg/kg/h. His norepinephrine is down to 0.02 mcg/kg/m. Again his ABG is marginal and no changes were made in his ventilator settings. However I noted that his hemoglobin is down to 6.7 today. No evidence of any active bleeding anywhere, his hemoglobin yesterday was 8.7, and I recommended a unit of packed RBCs to be transfused to this patient today. metabolic profile is normal. WBC count is 10.6 hemoglobin is 6.7. Platelets are 474. Medications-sevilla patient remains on albuterol, amiodarone 200 mg by mouth 3 times a day, ascorbic acid, vitamin D, Peridex, Decadron 6 mg by mouth daily, Lovenox 80 mg subcu twice a day, Lasix 40 mg IV push daily, patient is al so on Flomax and on zinc. Reevaluated today on 02/11/21, patient remains intubated and mechanically ventilated. Remains in the ICU. However this morning the patient developed a large right-sided pneumothorax requiring tube thoracostomy. Patient was noted to have significant air leak after the chest tube placement, and had to cut down on his PEEP down to 6, I had to increase his tidal volume to make up for the loss of volume through the chest tube, and I haven't now on FiO2 of 50% PEEP of 6 tidal volume 600 although he is getting about 400 and his rate is at 36. Chest x-ray post chest tube placement showed adequate positioning of the chest tube, and a small residual pneumothorax. Significant expansion of the right lung was noted. Again after the chest tube there was significant amount of air leak and seems to be gradually getting better we made up for the loss of volume by increasing the rate increasing the tidal volume and cutting down the PEEP down to 6. ABG after all these changes showed a pO2 of 81 pCO2 41 pH of 7.57. WBC count today is 4.7 hemoglobin is 9.7. Basic metabolic profile is normal renal functioning is abnormal him a creatinine is up to 1.87 from 1.4 to yest erday. Patient continues to have significant amount of hematuria , to be evaluated by urology in the meantime I'm holding his Lovenox, if urology see the patient and recommends no more anticoagulation therapy, I will done strongly recommend IVC filter placement in this patient. This will be decided upon hopefully later today or definitely in the next 24 hours. In the meantime we'll keep Lovenox and anticoagulations therapy on hold we are still having difficulty with a orogastric tube placement in this patient, general surgery was consulted, and the plan is to start the patient on TPN today, Dr. Rincon we'll arrange for EGD and orogastric tube placement hopefully tomorrow. May have to switch amiodarone to IV form instead of oral form because of no GI access at this point. Today the patient will remain on fentanyl and on propofol and no plans to wean him since we are dealing with many issues including his hematuria, his COVID-19 pneumonia, his right-sided pneumothorax which is a complication of COVID-19 infection and his renal status with worsening renal picture. Reevaluated today on 02/12/21, patient remains in the ICU, intubated and mechanically ventilated. Patient was on assist control rate of 32 tidal volume 400 FiO2 45% and PEEP of 8 and he is on fentanyl at 1 mcg/kg/h and propofol at 25 mcg/kg/m. Patient is sedated, however his ventilatory requirement does not s eem to be much, and there is a significant improvement in the air leak noted through the chest tube which was noted yesterday. And I was able to cut down his volume status 400 and kept him on the same rate. As a matter of fact I discontinued all his sedation today and I gave the patient a trial of IMV with pressure support of 10 backup rate of 8 on the IMV. And kept him on a PEEP of 8. Patient was gradually waking up, family is at bedside, and I updated the family on his status. His ABG today showed a pO2 of 86 pCO2 of 40 pH of 7.49, and this was on 50% FiO2. His complete metabolic profile seems to be relatively normal. Electrolytes are normal BUN however is 68 and creatinine is 1.43. If is improved compared to creatinine the last 2 days. Lovenox remains on hold, hematuria subsided, and we continued to have problem with placement of the orogastric tube, no GI coverage, and surgery is of decided whether to proceed with EGD at this point are not. Waiting to hear from surgery although they were notified over 24 hours ago, patient in the meantime is receiving TPN. We will have to make a decision regarding his Lovenox and possibly arrange for the patient to have IVC filter placement if there is going to be absolute contraindication to Lovenox. At this point there is no evidence of significant hematuria. And I may restart the patient back on Eliquis or Lovenox. Reevaluated today on 02/13/21, patient remains in the ICU, intubated and mechanically ventilated, and I had to place him back on Nimbex last night. He is presently on propofol at 30 mcg/kg/m, he is also on Nimbex at 2 mcg/kg/m. Patient is receiving Dilaudid as needed. ABG today showed a pO2 of 135 pCO2 63 pH of 7.24, and he was on assist control rate of 32 tidal volume 450 FiO2 75% and PEEP was at 8 tried patient on higher PEEP, however he was not doing well on higher PEEP, and I have noticed that whenever the patient goes on higher PEEP, we noticed more volume loss through the Pleur-evac/chest tube, hence I chose not to put him on higher PEEP today although there is no significant air leak noted today. I chose to keep the patient on assist control rate of 36 tidal volume remains at 450 cut down his FiO2 to 65 and possibly will cut it down further. PEEP remains at 8. Chest x-ray is showing cyst and bilateral infiltrates consistent with COVID-19 pneumonia and complete resolution of his right-sided pneumothorax tubes and catheters seem to be in proper positions. Last night I placed the patient back on Lovenox, and there is no evidence of further episodes of bleeding no further hematuria noted. Medications-sevilla the patient remains on albuterol, amiodarone is presently on hold because he could not place a orogastric tube in this patient. We have also tried including surgical staff, and we'll try again in the next 24 hours. In the meantime patient remains on TPN. Patient is also on ascorbic acid, Peridex, vitamin D, Nimbex was placed on hold today, Decadron 6 mg IV push daily, Lovenox 80 mg subcu twice a day, Lasix when necessary, he is not requiring norepinephrine today. 02/14/2021, the patient remains intubated on a mechanical ventilator. The patient has shown progress and currently he is on assist control mode at the rate of 36 with a tidal volume of 450, FiO2 of 60% with a PEEP of 8. Peak air pressure ranges between 24 and 28. Static pressure is low. The chest x-ray showing diffuse bilateral pulmonary infiltrates although infiltration of the lungs have been improving gradually and the patient has no evidence of air leak on his chest tube and there is no evidence of pneumothorax on today's chest x- ray. The blood gases from today shows a pH of 7.35 with a pCO2 of 49 and pO2 of 86. No significant orotracheal secretions. Note that the family has declined tracheostomy tube insertion and affect tube insertion for long-term care. The patient has been weaned off earlier and the child was given few days back when he was taken off sedation. He did fail as the patient was unable to maintain a saturation above 90% and he became quite asynchronous with a mechanical ventilator and he desaturated and became hypotensive. At that point, the child was aborted by the shotgun shell assembly machine adjuster. This morning, he seems to be quite comfortable while on sedation. He is on propofol running at 50 mcg/kg per minute. He is also on a low-dose pressors with norepinephrine running at 0.06 mcg/kg per minute. His creatinine is stable at 1.2 and this has improved and there is a mean of 50 with a sodium level of 145, his white cell count is at 22.2 with a hemoglobin of 9.0 from yesterday. The patient has a triple lumen catheter in his left subclavian vein. Mary cath is in place. He does not have an OG due to difficulties in inserting the tube. Gen. surgery is going to do this via a EGD scope. Otherwise, the patient had no other significant changes overnight. He remains on Lovenox 80 mg subcu every 12 hours regarding his left lower extremity DVT. He remains on Decadron 6 mg IV every 24 hours. He is also on TPN. He is in sinus rhythm and he has been on Amiodarone orally Objective - Vital Signs Vital signs: Vital Signs Temp 98.5 F 02/14/21 04:00 Pulse 72 02/14/21 07:00 Resp 39 H 02/14/21 07:00 BP 128/72 02/14/21 07:00 Pulse Ox 94 L 02/14/21 07:00 Intake & Output 02/13/21 02/14/21 02/14/21 18:59 06:59 18:59 Intake Total 2348.360 1199.302 23 Output Total 1115 905 75 Balance 1233.360 294.302 -52 Weight 77.2 kg 69 kg Intake: IV 861 726 23 Pressure Bag 0.9 sodium 36 36 3 chloride Sodium Chloride 0.9% 1, 80 20 000 ml @ 20 mls/hr IV . Q24H [facility] Rx#:[id number] Sodium Chloride 0.9% 1, 295 545 000 ml @ 75 mls/hr IV . [id number] [facility] Rx#:[id number] Sodium Chloride 4Meq/ml 530 65 Vial 32 meq Potassium Chloride 20 meq Calcium Gluconate 1 gm In Amino Acids 5 %/Dextrose 20 % 1 ,000 ml @ 70 mls/hr IV . BY DURATION [facility] Rx#: [id number] Intake, IV Titration 792.360 403.302 Amount Cisatracurium 200 mg In 127.733 Sodium Chloride 0.9% 180 ml @ 2 MCG/KG/MIN 8.709 mls/hr IV .[id number] [facility] Rx #:[id number] Mvi, Adult No.4 with Vit 262.5 K 10 ml Trace (Conc-1Ml/ Dose) 1 ml Sodium Chloride 4Meq/ml Vial 32 meq Potassium Chloride 20 meq Calcium Gluconate 1 gm In Amino Acids 5 %/ Dextrose 20 % 1,000 ml @ 70 mls/hr IV .BY DURATION [facility] Rx#:[id number] Norepinephrine 4 mg In 232.127 175.819 Sodium Chloride 0.9% 250 ml @ 0.05 MCG/KG/MIN 13. 826 mls/hr IV .[id number] [facility] Rx#:[id number] Sodium Chloride 4Meq/ml 70 Vial 32 meq Potassium Chloride 20 meq Calcium Gluconate 1 gm In Amino Acids 5 %/Dextrose 20 % 1 ,000 ml @ 70 mls/hr IV . BY DURATION [facility] Rx#: [id number] propofoL 1,000 mg In 100 227.483 Empty Bag 1 bag @ Titrate IV .Q0M [facility] Rx#: [id number] Tube Feeding 695 70 Output: Chest Tube Drainage 360 0 Right Lower 360 0 Urine 755 905 75 Other: Voiding Method Indwelling Catheter Indwelling Catheter ABP, PAP, CO, CI - Last Documented Arterial Blood Pressure 135/41 - Exam Physical Exam: Revealed a 75-year-old white male , intubated and mechanically ventilated. Sedated and off paralyzed this morning. Head: Atraumatic normocephalic. HEENT:[Neck is supple.] [No neck masses.] [No thyromegaly.] [No JVD.] Chest: Crackles at the bases bilaterally. No rhonchi and no wheezes, right- sided chest tube is noted connected to Pleur-evac, no air leak noted. Cardiac Exam: [Normal S1 and S2, no S3 gallop, no murmur.] Abdomen: [Soft, nontender, no megaly, no rebound, no guarding, normal bowel sounds.] Extremities: [No clubbing, no edema, no cyanosis.] Neurological mentation is to be done once the patient is off the propofol. I recommended using Precedex insulin propofol if the patient becomes quite asymptomatic is a mechanical ventilator. For now, he is deeply sedated. I was told that he would grimace to painful stimulation. He does not follow any commands and this is based on earlier evaluations. Psychiatric: Did not assessed today patient is sedated Skin: No rashes. - Labs CBC & Chem 7: 02/13/21 04:18 02/14/21 04:05 Labs: Abnormal Lab Results - Last 24 Hours (Table) 02/13/21 02/13/21 02/13/21 Range/Units 11:12 17:02 17:39 ABG pCO2 (35-45) mmHg ABG HCO3 (21-25) mmol/L ABG Total CO2 (19-24) mmol/L ABG O2 Saturation (94-97) % Chloride (98-107) mmol/L BUN (9-20) mg/dL Glucose (74-99) mg/dL POC Glucose (mg/dL) 121 H 252 H 252 H (75-99) mg/dL Calcium (8.4-10.2) mg/dL Phosphorus (2.5-4.5) mg/dL 02/13/21 02/14/21 02/14/21 Range/Units 23:26 04:05 05:52 ABG pCO2 49 H (35-45) mmHg ABG HCO3 27 H (21-25) mmol/L ABG Total CO2 28 H (19-24) mmol/L ABG O2 Saturation 97.6 H (94-97) % Chloride 115 H (98-107) mmol/L BUN 50 H (9-20) mg/dL Glucose 157 H (74-99) mg/dL POC Glucose (mg/dL) 225 H (75-99) mg/dL Calcium 7.8 L (8.4-10.2) mg/dL Phosphorus 1.7 L (2.5-4.5) mg/dL 02/14/21 Range/Units 05:58 ABG pCO2 (35-45) mmHg ABG HCO3 (21-25) mmol/L ABG Total CO2 (19-24) mmol/L ABG O2 Saturation (94-97) % Chloride (98-107) mmol/L BUN (9-20) mg/dL Glucose (74-99) mg/dL POC Glucose (mg/dL) 188 H (75-99) mg/dL Calcium (8.4-10.2) mg/dL Phosphorus (2.5-4.5) mg/dL Assessment and Plan Plan: #1. Acute hypoxic respiratory failure secondary to COVID-19 pneumonia. Patient is not nonvaccinated adult, his symptoms started on 01/17/2021. Patient took ivermectin on an outpatient basis prescribed by his [place] doctor. Patient refused Remdesivir. Is currently on Decadron, prophylactic anticoagulation, and COVID-19 vitamins. Patient was started on Baricitinib today on 01/27/2021 in view of progressive hypoxia and patient was on BiPAP . On 02/02/2021 patient was emergently transferred to the intensive care unit where he was intubated. Currently on assist control mode of ventilation . The patient remains intubated on mechanical ventilator. The patient remains sedated and he is off paralytics. I've noted some gradual improvement in the patient's condition over the past week or so. Hemodynamically, he is requiring low-dose pressors. His pneumothorax has been well treated with a right-sided chest tube. He remains on Decadron. Is DVT is also treated with therapeutic dose of Lovenox forany acute bleeding. His PEEP is currently down to 8 with an FiO2 of 60%. The extubation process going to be very complicated the patient has been intubated for prolonged period of time. Note that the family has declined to proceed with any tracheostomy tube insertion for a PEG tube insertion which obvious he may be needed for further weaning. The plan for now is to give her this is another sedation holiday and assess his readiness to wean. I'm not much optimistic about his access. This will largely depend on his mentation, his ability to maintain good saturation while off sedation and his ability to give us a spontaneous breathing trial. His neuro status needs to be assessed his ability to cough and protect rest or secretions needs to be assessed. #2. right lower lobe partially occlusive PE with subsegmental extension diagnosed by CT angiogram of the chest on 01/30/2021. Subsequent evaluation showed left popliteal DVT and a right superficial vein thrombosis and for that reason the patient has been transitioned into therapeutic dose of Lovenox. No evidence of any bleeding for now. #3. Acute kidney injury, possibly related to COVID-19 related ATN, Creatinine stable at 1.2 #4. Hematuria, see discussion above, improved #5. Elevated inflammatory markers related to the above, slightly improved and worsened again today on 01/31/2021. #6. Right-sided pneumothorax. Chest tube insertion with good results and hasn't expansion of the right lung, no evidence of any air leak. #7. History of COPD with diffuse centrilobar emphysema #8. Former smoker #9. Coronary artery disease with previous coronary artery bypass grafting 4 in 2018 #10. Mitral valve repair #11. Crohn's disease #12. Hypertension #13. History of systolic CHF #14. Elevated d-dimer, and without CT evidence of pulmonary embolism, or DVT on bilateral lower extremity Dopplers #15. Leukocytosis awaiting follow-up white cell count from today. Most recent white cell count from yesterday was at 22 and the patient is running a low dose pressors for hemodynamic support. #16 Chronic anemia Plan: Continue ventilator support, oxygenation is borderline. Stop propofol Assessment patient and use Precedex for sadation while on a mechanical ventilator . Start the patient on Lovenox 80 mg subcu BID for DVT The patient is currently on pressors. monitor fever pattern and monitor the white cell count Continue Decadron 6 mg daily, COVID-19 vitamins nutritional support with tube feedings, once OG tube is inserted. Following that, I'm going to discontinue the TPN and restart the patient on enteral feeding for nutritional support. Follow-up inflammatory markers, follow-up labs tomorrow Prognosis is extremely guarded We'll continue to follow, family declined Tracheostomy tube Family is opted to change his CODE STATUS to DO NOT RESUSCITATE Condition is critical we'll continue to follow make further recommendation based on her progress. Critically care evaluation that was on a more than 30 minutes. Time with Patient: Greater than 30 Time with Patient: Greater than 30
[2021-02-14] MEDS: DEXMEDETOMIDINE/0.9% NACL(PMX) 400 MCG in EMPTY BAG 1 BAG IV SCH ×2 (08:40→21:56)
[2021-02-14] MEDS: CYANOCOBALAMIN 500 MCG TAB PO SCH (08:41)
[2021-02-14] MEDS: AMIODARONE 200 MG TAB PO SCH ×3 (08:41→20:51)
[2021-02-14] MEDS: ASCORBIC ACID 500 MG TAB PO SCH (08:41)
[2021-02-14] MEDS: DEXAMETHASONE SOD PHOSPHATE 10 MG/ML 1 ML VIAL IVP SCH (08:41)
[2021-02-14] MEDS: CHLORHEXIDINE GLUCONATE 15 ML CUP MUCOUS MEM SCH ×2 (08:41→20:50)
[2021-02-14] MEDS: CHOLECALCIFEROL 125 MCG (5000 IU) TABLET PO SCH (08:41)
[2021-02-14] MEDS: ENOXAPARIN 80 MG/0.8 ML SYRINGE SQ SCH ×2 (08:42→20:50)
[2021-02-14] MEDS: TAMSULOSIN 0.4 MG CAP.ER.24H PO SCH ×2 (08:52→20:51)
[2021-02-14] MEDS: ZINC SULFATE 220 MG CAP PO SCH (08:52)
[2021-02-14] MEDS: ALBUTEROL HFA INHALER INHALATION SCH ×4 (09:06→19:58)
[2021-02-14] MEDS ORDERED: POTASSIUM PHOSPHATE 10 MMOL in SODIUM CHLORIDE 0.9% 100 ML IV SCH (10:30)
[2021-02-14 11:59] LABS: Glucose,Whole Blood 211 mg/dL (75-99)
--- NOTE | 2021-02-14 12:22 | P.PN ---
Subjective Progress Note Date: 02/14/21 Principal diagnosis: This 74-year-old male with: Pneumonia and vent dependent respiratory failure with acute kidney injury. He continues to be on 60% FiO2, good urine output creatinine is improving He is known with coronary artery disease, Crohn's disease COPD, mitral valve rep lacement. His chest x-ray is showing some improvement. His blood gases show pH of 7.35 with pCO2 49 and pO2 of 86 on 60% FiO2 Objective - Vital Signs Vital signs: Vital Signs Temp 100.1 F H 02/14/21 08:00 Pulse 84 02/14/21 10:30 Resp 39 H 02/14/21 10:30 BP 132/71 02/14/21 10:30 Pulse Ox 95 02/14/21 10:30 Intake & Output 02/13/21 02/14/21 02/14/21 18:59 06:59 18:59 Intake Total 2348.360 1199.302 369.218 Output Total 1115 905 370 Balance 1233.360 294.302 -0.782 Weight 77.2 kg 69 kg Intake: IV 861 726 92 Pressure Bag 0.9 sodium 36 36 12 chloride Sodium Chloride 0.9% 1, 80 80 000 ml @ 20 mls/hr IV . Q24H [facility] Rx#:[id number] Sodium Chloride 0.9% 1, 295 545 000 ml @ 75 mls/hr IV . [id number] [facility] Rx#:[id number] Sodium Chloride 4Meq/ml 530 65 Vial 32 meq Potassium Chloride 20 meq Calcium Gluconate 1 gm In Amino Acids 5 %/Dextrose 20 % 1 ,000 ml @ 70 mls/hr IV . BY DURATION [facility] Rx#: [id number] Intake, IV Titration 792.360 403.302 277.218 Amount Cisatracurium 200 mg In 127.733 Sodium Chloride 0.9% 180 ml @ 2 MCG/KG/MIN 8.709 mls/hr IV .[id number] [facility] Rx #:[id number] Mvi, Adult No.4 with Vit 195 K 10 ml Trace (Conc-1Ml/ Dose) 1 ml Potassium Phosphate 9 mmol Sodium Chloride 4Meq/ml Vial 32 meq Calcium Gluconate 1 gm In Amino Acids 5 %/ Dextrose 20 % 1,000 ml @ 65 mls/hr IV .BY DURATION [facility] Rx#:[id number] Mvi, Adult No.4 with Vit 262.5 K 10 ml Trace (Conc-1Ml/ Dose) 1 ml Sodium Chloride 4Meq/ml Vial 32 meq Potassium Chloride 20 meq Calcium Gluconate 1 gm In Amino Acids 5 %/ Dextrose 20 % 1,000 ml @ 70 mls/hr IV .BY DURATION [facility] Rx#:[id number] Norepinephrine 4 mg In 232.127 175.819 Sodium Chloride 0.9% 250 ml @ 0.05 MCG/KG/MIN 13. 826 mls/hr IV .[id number] [facility] Rx#:[id number] Sodium Chloride 4Meq/ml 70 Vial 32 meq Potassium Chloride 20 meq Calcium Gluconate 1 gm In Amino Acids 5 %/Dextrose 20 % 1 ,000 ml @ 70 mls/hr IV . BY DURATION [facility] Rx#: [id number] propofoL 1,000 mg In 100 227.483 82.218 Empty Bag 1 bag @ Titrate IV .Q0M [facility] Rx#: [id number] Tube Feeding 695 70 Output: Chest Tube Drainage 360 0 Right Lower 360 0 Urine 755 905 370 Other: Voiding Method Indwelling Catheter Indwelling Catheter Indwelling Catheter ABP, PAP, CO, CI - Last Documented Arterial Blood Pressure 159/54 General not examined because of the Covid Spoke to the family from the door - Labs CBC & Chem 7: 02/13/21 04:18 02/14/21 04:05 Labs: Abnormal Lab Results - Last 24 Hours (Table) 02/13/21 02/13/21 02/13/21 Range/Units 17:02 17:39 23:26 ABG pCO2 (35-45) mmHg ABG HCO3 (21-25) mmol/L ABG Total CO2 (19-24) mmol/L ABG O2 Saturation (94-97) % Chloride (98-107) mmol/L BUN (9-20) mg/dL Glucose (74-99) mg/dL POC Glucose (mg/dL) 252 H 252 H 225 H (75-99) mg/dL Calcium (8.4-10.2) mg/dL Phosphorus (2.5-4.5) mg/dL 02/14/21 02/14/21 02/14/21 Range/Units 04:05 05:52 05:58 ABG pCO2 49 H (35-45) mmHg ABG HCO3 27 H (21-25) mmol/L ABG Total CO2 28 H (19-24) mmol/L ABG O2 Saturation 97.6 H (94-97) % Chloride 115 H (98-107) mmol/L BUN 50 H (9-20) mg/dL Glucose 157 H (74-99) mg/dL POC Glucose (mg/dL) 188 H (75-99) mg/dL Calcium 7.8 L (8.4-10.2) mg/dL Phosphorus 1.7 L (2.5-4.5) mg/dL 02/14/21 Range/Units 11:56 ABG pCO2 (35-45) mmHg ABG HCO3 (21-25) mmol/L ABG Total CO2 (19-24) mmol/L ABG O2 Saturation (94-97) % Chloride (98-107) mmol/L BUN (9-20) mg/dL Glucose (74-99) mg/dL POC Glucose (mg/dL) 211 H (75-99) mg/dL Calcium (8.4-10.2) mg/dL Phosphorus (2.5-4.5) mg/dL Assessment and Plan Assessment: Impression 1. Acute kidney injury related to cOVID 1 year and improving, good urine output, creatinine coming down from 1.54 yesterday to 1.2 this morning 2. Ventilatory dependent respiratory failure. 3. On TPN 4. Right-sided pneumothorax with a chest tube. Recommendation No changes in medications from nephrology Continue TPN
--- NOTE | 2021-02-14 12:52 | P.PN ---
Progress Note - Text Progress Note Date: 02/14/21 patient name stable and ventilated. we will attempt orogastric tube placement tomorrow. We will continue TPN.
--- NOTE | 2021-02-14 13:08 | P.PN ---
Progress Note - Text Progress Note Date: 02/14/21 Hospital course: 74-year-old patient who follows with Dr. Mauricio Keith. Tonic stable medical conditions include hypertension, Crohn's disease, nephrolithiasis, BPH, hypertension, tinnitus, COPD, CAD with bypass. EF of 20-25%. Presented with shortness of breath. Diagnosed with COVID 19 on January 18 symptoms starting 1 day before. He was found to be hypoxic at home. Upon arrival he was 85%. Patient declined treatment with Remdesivir. Patient had been taking ivermectin as outpatient. She requested this to be continued. This was declined by the admitting team as this was not approved treatment. Patient not vaccinated against COVID. She did with subcu Lovenox and dexamethasone. January 24: Patient feeling better. On 3 L nasal cannula. Oral intake fair. Up in a bed. Slight cough. January 25: Sitting up in a recliner. Tired. Has some chest tightness. 92% on 4 L. Oral intake good. January 26: Bit more short of breath. Oxygen requirement: Up to 15 L. Had low-grade fever. Eating about 50-75%. Tired. Up in a chair. January 27: Short of breath. Sitting at the edge of the bed. 15 L nasal cannula. Decreased appetite. January 28: Laying in bed. Tired. Short of breath. On 15 L nonrebreather. Oral intake fair. Started on Baricitinib by pulmonary January 29: Patient is become more short of breath. Placed on BiPAP. Decreased oral intake. Tired. On Baricitinib, dexamethasone. January 30: Sitting up in a chair. Using BiPAP. Short of breath. Decreased oral intake. On Baricitinib) dexamethasone. Acute PE on CT chest. Started on eliquis January 31: Sitting at the edge of the bed. BiPAP. Short of breath. Tired. On eliquis, on Baricitinib, dexamethasone. February 01: Laying in bed. Short of breath. BiPAP. Tired. On Baricitinib, dexamethasone, eliquis. Eating reasonably well. February 02: Rather tired short of breath BiPAP 100%. On dexamethasone, eliquis February 03: ICU: Intubated yesterday. Prone position. Ventilator FiO2 70 PEEP of 12. Drips included propofol and Nimbex. February 08: ICU: Ventilator FiO2 52 PEEP of 14. 2 feeding at 30 mL an hour. Went into an episode of rapid A. fib last night. Given IV amiodarone. Current drips include norepinephrine, Nimbex, propofol, fentanyl February 09: ICU: Ventilator: FiO2 40 and a PEEP of 14. 2 feeding at 30 mL an hour. Drips include fentanyl, propofol. Atrial fibrillation controlled February 10: ICU: On the ventilator. FiO2 15 a PEEP of 14. Drips included propofol and fentanyl. Atrial fibrillation controlled. Earlier hemoglobin dropped to 6.7. No evidence of bleeding. 1 unit of blood ordered. February 11: ICU: Ventilator 50/6. Patient developed significant hematuria overnight. Neurology consulted. Patient developed a spontaneous right-sided pneumothorax. Chest tube placed. Trouble with OG tube placement. February 12: ICU: Ventilator 50/8. Patient been off sedation. Chest tube on the right side. About 2 and 40 mL in last 24 hours. Patient is on TPN. No lipids. Telemetry shows sinus rhythm. Patient's daughter and Cleviprex today. Bladder was flushed. Some clearing of the hematuria. February 13: ICU: Ventilator FiO2 60. Weight. TPN. Chest tube in place. Telemetry shows sinus rhythm. His include norepinephrine propofol. Nimbex taken off. Urine is more orange colored. February 14: ICU: Atrial fibrillation. Ventricular 60/80. On IV Precedex. Chest tube in place. [place] colored urine. at the bedside. Review of systems: Patient on ventilator Active Medications Acetaminophen (Acetaminophen Tab 325 Mg Tab) 650 mg PO Q6HR PRN PRN Reason: Fever and/ or Pain Last Admin: 02/02/21 06:07 Dose: 650 mg Documented by: Albuterol Sulfate (Albuterol Hfa Inhaler) 2 puff INHALATION RT-QID [facility] Last Admin: 02/14/21 09:06 Dose: Not Given Documented by: Albuterol Sulfate (Albuterol Hfa Inhaler) 4 puff INHALATION RT-QID PRN PRN Reason: Shortness Of Breath Or Wheezing Amiodarone HCl (Amiodarone 200 Mg Tab) 200 mg PO TID [facility] Stop: 02/15/21 11:16 Last Admin: 02/14/21 08:41 Dose: Not Given Documented by: Artificial Tears (Artificial Tears-Hypromellose Drops 15 Ml Btl) 2 drops BOTH EYES Q4HR [facility] Last Admin: 02/14/21 11:52 Dose: 2 drops Documented by: Ascorbic Acid (Ascorbic Acid 500 Mg Tab) 2,000 mg PO DAILY [facility] Last Admin: 02/14/21 08:41 Dose: Not Given Documented by: Chlorhexidine Gluconate (Chlorhexidine Gluconate 15 Ml Cup) 15 ml MUCOUS MEM BID [facility] Last Admin: 02/14/21 08:41 Dose: 15 ml Documented by: Cholecalciferol (Cholecalciferol 125 Mcg (5000 Iu) Tablet) 125 mcg PO DAILY [facility] Last Admin: 02/14/21 08:41 Dose: Not Given Documented by: Cyanocobalamin (Cyanocobalamin 500 Mcg Tab) 4,000 mcg PO DAILY [facility] Last Admin: 02/14/21 08:41 Dose: Not Given Documented by: Dexamethasone Sodium Phosphate (Dexamethasone Sod Phosphate 10 Mg/Ml 1 Ml Vial) 6 mg IVP DAILY [facility] Last Admin: 02/14/21 08:41 Dose: 6 mg Documented by: Enoxaparin Sodium (Enoxaparin 80 Mg/0.8 Ml Syringe) 80 mg SQ BID [facility] Last Admin: 02/14/21 08:42 Dose: 80 mg Documented by: Hydromorphone HCl (Hydromorphone 1 Mg/Ml 1 Ml Syringe) 1 mg IVP Q3HR PRN PRN Reason: pain Last Admin: 02/13/21 19:31 Dose: 1 mg Documented by: Propofol 1,000 mg/ IV Solution 100 mls @ 0 mls/hr IV .Q0M [facility]; Protocol Last Admin: 02/14/21 07:49 Dose: 50 mcg/kg/min, 20.7 mls/hr Documented by: Cisatracurium Besylate 200 mg/ (Sodium Chloride) 200 mls @ 8.709 mls/hr IV .[id number] [facility]; Protocol Last Admin: 02/14/21 06:06 Dose: Not Given Documented by: Norepinephrine Bitartrate 4 mg (/ Sodium Chloride) 254 mls @ 13.826 mls/hr IV .[id number] [facility]; Protocol Last Admin: 02/14/21 06:03 Dose: 0.06 mcg/kg/min, 16.591 mls/hr Documented by: Clevidipine 25 mg/ IV Solution 50 mls @ 2 mls/hr IV .Q24H [facility]; Protocol Last Titration: 12/28/21 19:44 Dose: 0 mg/hr, 0 mls/hr Documented by: Sodium Chloride (Saline 0.9%) 1,000 mls @ 20 mls/hr IV .Q24H [facility] Last Admin: 02/13/21 21:30 Dose: 20 mls/hr Documented by: Parenteral Vitamin Supplement 10 ml/ Zinc/Copper/Manganese/Selenium 1 ml/ Potassium Phosphate 9 mmol/ Sodium Chloride 32 meq/ Calcium Gluconate 1 gm/ Amino Acids/Dextrose 1,032 mls @ 65 mls/hr IV .BY DURATION [facility] Potassium Phosphate 9 mmol/Sodium Chloride 32 meq/Calcium Gluconate 1 gm/ Amino Acids/Dextrose 1,021 mls @ 65 mls/hr IV .BY DURATION [facility] Last Admin: 02/14/21 02:19 Dose: 65 mls/hr Documented by: Dexmedetomidine HCl 400 mcg/ (IV Solution) 100 mls @ 3.45 mls/hr IV .Q24H [facility]; Protocol Last Admin: 02/14/21 08:40 Dose: 0.2 mcg/kg/hr, 3.45 mls/hr Documented by: Insulin Aspart (Insulin Aspart (Novolog) 100 Unit/Ml Vial) 0 unit SQ Q6H [facility]; Protocol Last Admin: 02/14/21 12:12 Dose: 6 unit Documented by: Insulin Detemir (Insulin Detemir (Levemir) 100 Unit/Ml Syr) 10 unit SQ DAILY@0700 [facility] Lorazepam (Lorazepam 2 Mg/Ml Inj) 1 mg IV Q4HR PRN PRN Reason: Anxiety Last Admin: 02/12/21 15:34 Dose: 1 mg Documented by: Miscellaneous Information (Potassium Replacement Protocol 1 Each Misc) 1 each MISCELLANE DAILY PRN; Protocol PRN Reason: Per Protocol Tamsulosin HCl (Tamsulosin 0.4 Mg Cap.Er.24h) 0.4 mg PO BID [facility] Last Admin: 02/14/21 08:52 Dose: Not Given Documented by: Zinc Sulfate (Zinc Sulfate 220 Mg Cap) 220 mg PO DAILY [facility] Last Admin: 02/14/21 08:52 Dose: Not Given Documented by: On examination: VITAL SIGNS: 100.1, 81, 36, 132/71, 1 59 x 54 GENERAL APPEARANCE: , sedated, intubated, right-sided chest tube. Slight orange urine in the Mary catheter: RESPIRATORY: Respiratory effort increased. PSYCHIATRY: Unable to assess, sedated Rest of the exam per pulmonary and nursing INVESTIGATIONS, reviewed in the clinical context: February 14: Potassium 3.9 creatinine 1.2. Chest x-ray: Infiltrates February 13: White count 22.2 hemoglobin 9 platelets 427 ABG: PH 7.2 pCO2 63 pO2 135 potassium 4. 60 creatinine 1.5 for February 12: Sodium 142 BUN 68 creatinine 1.43 February 11: White count 12.7 hemoglobin 9.7 platelets 432 potassium 4.6 BUN 72 creatinine 1.8 seventh. Chest x-ray shows right-sided pneumothorax February 10: WBC 10.6 hemoglobin 6.7 platelets. Potassium 4.4 BUN 72 creatinine 1.4 to February 09: White count 9.5 hemoglobin 8.7 platelets 374 ABG: PCO2 35 pO2 56 potassium 5 creatinine 1.07. Chest x-ray: Bilateral infiltrates February 08: WBC 11.5 hemoglobin 8 platelets 450 potassium 4.7 BUN 63 creatinine 1.47 Doppler ultrasound [February 05] DVT in the left popliteal vein and right lower extremity superficial vein February 03: W BC 21.5 hemoglobin 8.8 platelets 267 ABG: PH 7.25 pCO2 34 pO2 93 potassium 4.6 creatinine 1.39 February 02: White count 18.4 hemoglobin 9. ABG: PH 7.5 pO2 58 creatinine 1.18. Chest x-ray: Worsening February 01: White count 16.7 hemoglobin 9.7 d-dimer greater than 34 BUN 45 creatinine 1.27 January 31: WBC 13.1 COVID 10.3 d-dimer greater than 34 potassium 4.5 creatinine 1.26 CRP 3.5 January 30: WBC 10.4 hemoglobin 9.8 platelets 145 potassium 4.5 creatinine 1.4. AST [address] angiogram for PE [January 30] new [place] occlusive embolism segmental b ronchus right lower lobe with segmental extension. Doppler ultrasound [January 29]: Superficial thrombosis in the right lesser saphenous vein. January 29: D-dimer greater than 34 potassium 4.4 BUN 67 creatinine 1.61 AST 174 ALT 73 January 28: WBC 10.2 hemoglobin 11.4 platelets 154 d-dimer greater than 34 sodium 136 potassium 4.9. 43 creatinine 1.29 January 27: WBC 11.8 hemoglobin 10.5 January 26: White count 11.8 hemoglobin 11.5 d-dimer 12.6 CRP 7.3 White count 5.9 hemoglobin 12.3 platelets 162 d-dimer 0.93 potassium 4.1 creatinine 0.86 CRP 4.4 Admission labs: Pro-calcitonin 0.04 Coronavirus [PCR]: Detected D-dimer 0.83 EKG tracing personally reviewed by me-sinus bradycardia. Rate 55 Chest x-ray: biLateral infiltrates Assessment and plan: -Bilateral COVID 19 pneumonitis: Not improving Dexamethasone. Subcu Lovenox. (declined Remdesivir. patient was taking ivermectin at home). Baricitinib given -Spontaneous right-sided pneumothorax on February 11 Right-sided chest tube -Acute severe hematuria.: Improving Follow H&H. Urology consulted -Acute pulmonary embolism, along with DVT: Lovenox subcu -Septic shock:better Received IV levo fed -Acute hypoxic respiratory failure from COVID 19: Not improving Intubated February 02. On the ventilator -Essential hypertension: Currently blood pressure is running low -Chronic Crohn's disease Pentasa 1000 milligrams 3 times a day - nephrolithiasis Follow clinically -Acute kidney injury. Possibly ATN from COVID 19 causing infection and hypotension: Slow to respond Follow nephrology -Paroxysmal atrial fibrillation with episodes of rapid ventricular rate: Currently sinus rhythm Amiodarone -BPH Flomax 0.4 mg twice a day -COPD in a previous smoker Pulmicort -Chronic tinnitus with hearing impairment -CAD with bypass Aspirin, beta billy, Lipitor -Hyperlipidemia Lipitor 40 mg daily -Acute hepatitis: Improving hold Lipitor. Follow LFT -Full code -TPN Right-sided chest tube. On TPN. Therapeutic dose of Lovenox. Prognosis guarded.
[2021-02-14 16:10] LABS: Anisocytosis Slight; Basophils % (A) 0 %; Eosinophils % (A) 0 %; HCT 28.3 % (39.0-53.0); HGB 8.3 gm/dL (13.0-17.5); Hypochromasia Marked; Lymphocytes # (A) 0.1 k/uL (1.0-4.8); Lymphocytes % (A) 1 %; MCH 28.9 pg (25.0-35.0); MCHC 29.2 g/dL (31.0-37.0); MCV 99.3 fL (80.0-100.0); Macrocytosis Slight; Mean Platelet Volume 8.9; Monocytes # (A) 0.2 k/uL (0-1.0); Monocytes % (A) 2 %; Neutrophils # (A) 11.5 k/uL (1.3-7.7); Neutrophils % (A) 97 %; Platelet Count 321 k/uL (150-450); RBC 2.85 m/uL (4.30-5.90); RDW 16.8 % (11.5-15.5); WBC 11.9 k/uL (3.8-10.6)
[2021-02-14] MEDS: SODIUM CHLORIDE 0.9% 1,000 ML IV SCH (17:27)
[2021-02-14 17:46] LABS: Glucose,Whole Blood 205 mg/dL (75-99)
[2021-02-14] MEDS: CLEVIDIPINE BUTYRATE 25 MG in EMPTY BAG 1 BAG IV SCH ×2 (18:27→21:56)
[2021-02-14 23:53] LABS: Glucose,Whole Blood 217 mg/dL (75-99)
[2021-02-15] MEDS: ARTIFICIAL TEARS-HYPROMELLOSE DROPS 15 ML BTL BOTH EYES SCH ×2 (00:28→06:36)
[2021-02-15] MEDS: INSULIN ASPART (NovoLOG) 100 UNIT/ML VIAL SQ SCH ×4 (00:28→19:15)
[2021-02-15] MEDS: CLEVIDIPINE BUTYRATE 25 MG in EMPTY BAG 1 BAG IV SCH ×3 (01:58→10:09)
[2021-02-15] MEDS: CISATRACURIUM 200 MG in SODIUM CHLORIDE 0.9% 180 ML IV SCH (05:07)
[2021-02-15 05:10] LABS: Calcium 8.1 mg/dL (8.4-10.2); Magnesium 2.1 mg/dL (1.6-2.3); Phosphorus 2.1 mg/dL (2.5-4.5)
[2021-02-15 05:50] LABS: ABG Base Excess 1.3 mmol/L; ABG HCO3 27 mmol/L (21-25); ABG Oxygen Saturation 90.9 % (94-97); ABG PCO2 47 mmHg (35-45); ABG PH 7.36 (7.35-7.45); ABG TCO2 28 mmol/L (19-24)
[2021-02-15 05:57] LABS: Glucose,Whole Blood 218 mg/dL (75-99)
[2021-02-15 06:31] LABS: ABG PO2 58 mmHg (83-108); Allen Test Performed? no
[2021-02-15] MEDS: DEXMEDETOMIDINE/0.9% NACL(PMX) 400 MCG in EMPTY BAG 1 BAG IV SCH ×3 (06:33→22:42)
[2021-02-15] MEDS: INSULIN DETEMIR (LEVEMIR) 100 UNIT/ML SYR SQ SCH (06:55)
--- NOTE | 2021-02-15 07:12 | P.PN ---
Subjective Progress Note Date: 02/15/21 Principal diagnosis: This 74-year-old male with:Covid Pneumonia and vent dependent respiratory failure with acute kidney injury. He continues to be on 60% FiO2, good urine output creatinine is improving, down to 1.02 urine output is 25 45 mL His vital signs are stable blood pressure in the 120s systolic to 1:30 systolic heart rate is 106 to 115. Afebrile, except for one temperature record of 100.1 yesterday morning He is known with coronary artery disease, Crohn's disease COPD, mitral valve replacement. on the ventilator he seems tachypneic, blood gases show pH of 7.36 pCO2 is 47 and pO2 is 58 on 60% FiO2 Objective - Vital Signs Vital signs: Vital Signs Temp 98.4 F 02/14/21 20:00 Pulse 84 02/15/21 07:00 Resp 31 H 02/15/21 07:00 BP 138/68 02/15/21 07:00 Pulse Ox 88 L 02/15/21 07:00 Intake & Output 02/14/21 02/15/21 02/15/21 18:59 06:59 18:59 Intake Total 2947.329 4570.996 88 Output Total 1125 1420 75 Balance -21.250 -230.004 13 Weight 70.5 kg Intake: IV 276 276 23 Pressure Bag 0.9 sodium 36 36 3 chloride Sodium Chloride 0.9% 1, 240 240 20 000 ml @ 20 mls/hr IV . Q24H [facility] Rx#:[id number] Intake, IV Titration 827.750 913.996 65 Amount Clevidipine Butyrate 25 0 48.666 mg In Empty Bag 1 bag @ 1 MG/HR 2 mls/hr IV .Q24H [facility] Rx#:[id number] Dexmedetomidine/0.9% NaCl 30.532 85.330 (Pmx) 400 mcg In Empty Bag 1 bag @ 0.2 MCG/KG/HR 3.45 mls/hr IV .Q24H [facility] Rx#:[id number] Mvi, Adult No.4 with Vit 715 780 65 K 10 ml Trace (Conc-1Ml/ Dose) 1 ml Potassium Phosphate 9 mmol Sodium Chloride 4Meq/ml Vial 32 meq Calcium Gluconate 1 gm In Amino Acids 5 %/ Dextrose 20 % 1,000 ml @ 65 mls/hr IV .BY DURATION [facility] Rx#:[id number] propofoL 1,000 mg In 82.218 Empty Bag 1 bag @ Titrate IV .Q0M [facility] Rx#: [id number] Output: Chest Tube Drainage 60 Right Lower 60 Urine 1065 1420 75 Other: Voiding Method Indwelling Catheter Indwelling Catheter ABP, PAP, CO, CI - Last Documented Arterial Blood Pressure 136/41 is sedated, on the ventilator at 60% FiO2. Lungs are clear to auscultation fair air entry bilaterally Heart sounds unremarkable for any murmur rub gallop he is in atrial fibrillation Abdomen soft nontender Extremity exam was trace edema - Labs CBC & Chem 7: 02/14/21 15:55 02/15/21 04:20 Labs: Abnormal Lab Results - Last 24 Hours (Table) 02/14/21 02/14/21 02/14/21 Range/Units 11:56 15:55 17:44 WBC 11.9 H (3.8-10.6) k/uL RBC 2.85 L (4.30-5.90) m/uL Hgb 8.3 L (13.0-17.5) gm/dL Hct 28.3 L (39.0-53.0) % MCHC 29.2 L (31.0-37.0) g/dL RDW 16.8 H (11.5-15.5) % Neutrophils # 11.5 H (1.3-7.7) k/uL Lymphocytes # 0.1 L (1.0-4.8) k/uL ABG pCO2 (35-45) mmHg ABG pO2 (83-108) mmHg ABG HCO3 (21-25) mmol/L ABG Total CO2 (19-24) mmol/L ABG O2 Saturation (94-97) % Chloride (98-107) mmol/L BUN (9-20) mg/dL Glucose (74-99) mg/dL POC Glucose (mg/dL) 211 H 205 H (75-99) mg/dL Calcium (8.4-10.2) mg/dL Phosphorus (2.5-4.5) mg/dL 02/14/21 02/15/21 02/15/21 Range/Units 23:51 04:20 05:47 WBC (3.8-10.6) k/uL RBC (4.30-5.90) m/uL Hgb (13.0-17.5) gm/dL Hct (39.0-53.0) % MCHC (31.0-37.0) g/dL RDW (11.5-15.5) % Neutrophils # (1.3-7.7) k/uL Lymphocytes # (1.0-4.8) k/uL ABG pCO2 47 H (35-45) mmHg ABG pO2 58 L* (83-108) mmHg ABG HCO3 27 H (21-25) mmol/L ABG Total CO2 28 H (19-24) mmol/L ABG O2 Saturation 90.9 L (94-97) % Chloride 114 H (98-107) mmol/L BUN 43 H (9-20) mg/dL Glucose 235 H (74-99) mg/dL POC Glucose (mg/dL) 217 H (75-99) mg/dL Calcium 8.1 L (8.4-10.2) mg/dL Phosphorus 2.1 L (2.5-4.5) mg/dL 02/15/21 Range/Units 05:55 WBC (3.8-10.6) k/uL RBC (4.30-5.90) m/uL Hgb (13.0-17.5) gm/dL Hct (39.0-53.0) % MCHC (31.0-37.0) g/dL RDW (11.5-15.5) % Neutrophils # (1.3-7.7) k/uL Lymphocytes # (1.0-4.8) k/uL ABG pCO2 (35-45) mmHg ABG pO2 (83-108) mmHg ABG HCO3 (21-25) mmol/L ABG Total CO2 (19-24) mmol/L ABG O2 Saturation (94-97) % Chloride (98-107) mmol/L BUN (9-20) mg/dL Glucose (74-99) mg/dL POC Glucose (mg/dL) 218 H (75-99) mg/dL Calcium (8.4-10.2) mg/dL Phosphorus (2.5-4.5) mg/dL Assessment and Plan Assessment: Impression 1. Acute kidney injury related to COVID and improving, good urine output, cr eatinine coming down to 1.02 this morning, with good urine output 2. Ventilatory dependent respiratory failure. Unchanged on 60% FiO2 3. On TPN 4. Right-sided pneumothorax with a chest tube. Recommendation No changes in medications from nephrology Continue TPN, monitor calcium phosphorus magnesium electrolytes
[2021-02-15] MEDS: AMIODARONE 200 MG TAB PO SCH (07:54)
[2021-02-15] MEDS: CYANOCOBALAMIN 500 MCG TAB PO SCH (07:55)
[2021-02-15] MEDS: CHOLECALCIFEROL 125 MCG (5000 IU) TABLET PO SCH (07:55)
[2021-02-15] MEDS: ASCORBIC ACID 500 MG TAB PO SCH (07:55)
[2021-02-15] MEDS: TAMSULOSIN 0.4 MG CAP.ER.24H PO SCH ×2 (07:55→20:43)
[2021-02-15] MEDS: ZINC SULFATE 220 MG CAP PO SCH (07:56)
[2021-02-15 08:01] LABS: Anisocytosis Slight; Basophils % (A) 0 %; Eosinophils % (A) 0 %; HCT 29.3 % (39.0-53.0); HGB 8.7 gm/dL (13.0-17.5); Hypochromasia Marked; Lymphocytes # (A) 0.2 k/uL (1.0-4.8); Lymphocytes % (A) 1 %; MCH 29.8 pg (25.0-35.0); MCHC 29.7 g/dL (31.0-37.0); MCV 100.1 fL (80.0-100.0); Macrocytosis Slight; Mean Platelet Volume 8.9; Monocytes # (A) 0.4 k/uL (0-1.0); Monocytes % (A) 2 %; Neutrophils # (A) 17.9 k/uL (1.3-7.7); Neutrophils % (A) 97 %; Platelet Count 363 k/uL (150-450); RBC 2.93 m/uL (4.30-5.90); RDW 16.8 % (11.5-15.5); WBC 18.5 k/uL (3.8-10.6)
--- NOTE | 2021-02-15 08:20 | XR ---
EXAMINATION TYPE: XR chest 1V portable DATE OF EXAM: 02/15/2021 COMPARISON: 02/14/2021 HISTORY: SOB, Follow Up FINDINGS: Indwelling tubes and catheters are unchanged.Right-sided chest tube is again noted to be in place. Th ere is no evidence for sizable pneumothorax at this time. Scattered reticulonodular infiltrates in patchy infiltrate right lower lobe persist unchanged. Stable appearance of the cardio-mediastinal structures at this time. Pleural effusion unchanged. IMPRESSION: 1. Stable portable chest. Clinical correlation and follow up until resolution is recommended.
--- NOTE | 2021-02-15 08:24 | P.PN ---
Subjective Progress Note Date: 02/15/21 This is a 75-year-old male patient who follows with Dr. Mauricio Keith is his primary care provider. He has a history of coronary artery disease with previous coronary artery bypass grafting, mitral valve replacement, hypertension, hyperlipidemia, chronic obstructive pulmonary disease, former smoker, Crohn's disease. On January 17 the patient started having symptoms of fever cough congestion weakness and was tested for COVID-19 on January 18. He found out his results on January 21 and was told to stay home and rest unless his symptoms worsened. He was given doxycycline and prednisone 20 mg twice a day. His brought him into the emergency room here today as his oxygen levels were dropping at home. Chest x-rays revealing patchy bilateral interstitial pneumonia with underlying COPD. White count 2.8. Hemoglobin 12.9. Platelets 149. Lymphocytes 0.2. D-dimer 0.83. Sodium 133. Potassium 4.7. Creatinine 1.06. Glucose 154. AST 122. ALT 75. LDH 1082. C-reactive protein 6.4. Chronic virus by PCR positive. The patient is not vaccinated. He is seen today in the emergency room. Awake and alert in no acute distress. Sitting up on a stretcher. He is 85% O2 saturation on room air. 93% on 2 L per nasal cannula. Afebrile. Hemodynamically stable. He's been initiated on Lovenox and vitamin supplements. He will be started on Decadron. We discussed with him the possibility for Remdesivir which he is reluctant to receive. His who is sitting next to him is also having symptoms and she plans to go get tested today. The patient is seen today 01/24/2021 in follow-up on the observation unit. He is currently sitting up in bed. Awake and alert in no acute distress. He is feeling quite a bit better. Feeling stronger today. He did decline Remdesivir. He has been maintained on Lovenox, Decadron, vitamin supplements. He is currently maintaining O2 saturation in the low 90s on 3 L/m per nasal cannula. He's been afebrile. Hemodynamically stable. Chest x-ray continues to show increased bilateral infiltrates. White count 5.9. Hemoglobin 12.3. D-dimer 0.93. Sodium 134. Potassium 4.1. Creatinine 0.86. Glucose 158. AST 87. ALT 62. LDH 81. C-reactive protein 4.4. On 01/25/2021 patient seen in follow-up on medical surgical floor. He is awake and alert, in no acute distress, breathing comfortably, although still has a persistent cough, does have exertional dyspnea. He is currently on 4 L of oxygen and his pulse ox is borderline between 87-92%. No fever or chills, blood pressure is been stable, patient has been ambulate into the bathroom. Today's chest x-ray shows progressive changes in the lungs with increasing bilateral infiltrates. Patient remains on Decadron 6 mg daily, prophylactic Lovenox, he is on inhaled Needham dilators, he is on COVID-19 vitamins. His labs from yesterday showed a d-dimer of 0.93, electrolytes and renal profile were fairly unremarkable, his AST and ALT were improving and were down to 87 and 62 respectively, his inflammatory markers showed a trend for improvement with LDH at 881, and CRP of 4.4. Reevaluated today on 01/26/2021, patient remains on the regular medical floor, his condition got a bit worse yesterday, he is now on 15 L nasal cannula high flow, and his O2 saturation is ranging between 90 up to 96%. However the patient does not seem to be in any distress, he is afebrile with a temp of 97 9 he had a T-max of 100.4 last night. Vital signs are stable. Blood pressure 113/43. Previous count is 11.8 hemoglobin is 11.5, d-dimer went up to 12.66, however workup for pulmonary embolism and venous Doppler came back negative yesterday last night. Patient is on the COVID-19 cocktail, he refused taking remdesivir when he qualified, he is on Lovenox at 40 mg subcu daily, he is also on vitamin D, vitamin C, zinc, and he is on Decadron 6 mg by mouth daily. Evaluated today on 02/07/2021, patient remains in the ICU, intubated and mechanically ventilated. He is presently on assist control rate of 30 tidal volume 420 FiO2 50% PEEP of 14. ABG showed a pO2 of 60 pCO2 of 71 pH of 7.39. A shunt is on propofol at 14 Nimbex at 1.5, he is also on Dilaudid when necessary, IV fluid at KVO. His renal profile showed a BUN of 57 creatinine 1.8. While I was evaluating the patient, shortly after the patient developed an episode of atrial fibrillation with RVR, recommended amiodarone to be started as per protocol, and starting amiodarone drip on this patient. Patient is not ready for any weaning trials at this point specially with his new onset atrial fibrillation with RVR. His electrolytes are normal BUN is 57 creatinine 1.18. She count is 12.4 hemoglobin is 8.1. X-ray continues to show diffuse bilateral infiltrates. Not much of a change or improvement noted. Patient remains on the COVID-19 cocktail. Remains on Decadron 6 mg IV push daily. Lovenox was increased to 80 mg subcu twice a day. Patient is also on Baricitinib. Amiodarone was added today. Reevaluated today on 02/08/21, patient remains in the ICU intubated and mechanically ventilated. He is now on assist control rate of 30 tidal volume 420 FiO2 60% and I cut it down to 50% PEEP is at 14. ABG today showed a pO2 of 60 pCO2 71 pH of 7.39. His electrolytes are normal BUN is 63 creatinine 1.47 WBC count is 11.5 hemoglobin is 8.0. Chest x-ray is not showing much of an improvement, continues to have bilateral infiltrates. Patient is on multiple drips including fentanyl at 1, propofol at 3 0 mcg/kg/m, Nimbex at 1.5 mcg/kg/m amiodarone 0.5 mg/m. Patient is on norepinephrine at 0.03 mcg/kg/m is also on enteral feeding/utilizing Nepro at 32 mL per hour and sputum cultures are normal nondiagnostic. Patient is now on oral amiodarone at 20 mg 3 times a day, and IV amiodarone has been discontinued. Patient is on ascorbic acid, I have discontinued his colazal, and it may confuse the picture because it is known to cause pneumonitis/drug-induced pneumonitis. I kept the patient on Baricitinib, remains on Lovenox 80 mg subcu twice a day specially with his atrial fibrillation and RVR although today he went back to normal sinus rhythm. Patient remains on the COVID-19 cocktail. At this point I don't see any room to wean or extubated the patient, he will remain intubated mechanically ventilated and sedated. I would also keep him paralyzed since the patient is requiring relatively high PEEP, and chest x-ray is not showing much improvement he still requiring relatively high FiO2 it was 60% and I cut it down today to 50% Reevaluated today on 02/09/2021, patient remains in the ICU intubated and mechanically ventilated. He is now on assist control rate of 30 tidal volume 420 FiO2 50% PEEP is 14. ABG is marginal with a pO2 of 56 pCO2 of 75 pH of 7.39. Remains on propofol at 30 mcg/kg/m fentanyl 20 mcg/kg/h Nimbex at 1.5 mcg/kg/m he is off norepinephrine presently he is on enteral feeding and he is on IV fluid at KVO. Chest x-ray continues to show bilateral infiltrates not much of a change in the last 24 hours. Labs including basic metabolic profile and CBC were reviewed, seem to be relatively unremarkable. Today I suggested that we stop Nimbex and try to maintain the patient mostly on propofol and fentanyl if possible, and hopefully the patient couldn't tolerate coming off par alytics. In the meantime the patient remains on the treatment as noted above. Reevaluated today on 02/10/21, patient remains in the ICU, intubated and mechanically ventilated. He is presently on assist control rate of 30 tidal volume 420 FiO2 50% PEEP is down to 14. His ABG showed a pO2 of 64 pCO2 of 66 pH of 7.44. Patient is off Nimbex today, and I have kept him on propofol at 50 mcg/kg/m he is also on fentanyl. At 1 mcg/kg/h. His norepinephrine is down to 0.02 mcg/kg/m. Again his ABG is marginal and no changes were made in his ventilator settings. However I noted that his hemoglobin is down to 6.7 today. No evidence of any active bleeding anywhere, his hemoglobin yesterday was 8.7, and I recommended a unit of packed RBCs to be transfused to this patient today. metabolic profile is normal. WBC count is 10.6 hemoglobin is 6.7. Platelets are 474. Medications-sevilla patient remains on albuterol, amiodarone 200 mg by mouth 3 times a day, ascorbic acid, vitamin D, Peridex, Decadron 6 mg by mouth daily, Lovenox 80 mg subcu twice a day, Lasix 40 mg IV push daily, patient is al so on Flomax and on zinc. Reevaluated today on 02/11/21, patient remains intubated and mechanically ventilated. Remains in the ICU. However this morning the patient developed a large right-sided pneumothorax requiring tube thoracostomy. Patient was noted to have significant air leak after the chest tube placement, and had to cut down on his PEEP down to 6, I had to increase his tidal volume to make up for the loss of volume through the chest tube, and I haven't now on FiO2 of 50% PEEP of 6 tidal volume 600 although he is getting about 400 and his rate is at 36. Chest x-ray post chest tube placement showed adequate positioning of the chest tube, and a small residual pneumothorax. Significant expansion of the right lung was noted. Again after the chest tube there was significant amount of air leak and seems to be gradually getting better we made up for the loss of volume by increasing the rate increasing the tidal volume and cutting down the PEEP down to 6. ABG after all these changes showed a pO2 of 81 pCO2 41 pH of 7.57. WBC count today is 4.7 hemoglobin is 9.7. Basic metabolic profile is normal renal functioning is abnormal him a creatinine is up to 1.87 from 1.4 to yest erday. Patient continues to have significant amount of hematuria , to be evaluated by urology in the meantime I'm holding his Lovenox, if urology see the patient and recommends no more anticoagulation therapy, I will done strongly recommend IVC filter placement in this patient. This will be decided upon hopefully later today or definitely in the next 24 hours. In the meantime we'll keep Lovenox and anticoagulations therapy on hold we are still having difficulty with a orogastric tube placement in this patient, general surgery was consulted, and the plan is to start the patient on TPN today, Dr. Rincon we'll arrange for EGD and orogastric tube placement hopefully tomorrow. May have to switch amiodarone to IV form instead of oral form because of no GI access at this point. Today the patient will remain on fentanyl and on propofol and no plans to wean him since we are dealing with many issues including his hematuria, his COVID-19 pneumonia, his right-sided pneumothorax which is a complication of COVID-19 infection and his renal status with worsening renal picture. Reevaluated today on 02/12/21, patient remains in the ICU, intubated and mechanically ventilated. Patient was on assist control rate of 32 tidal volume 400 FiO2 45% and PEEP of 8 and he is on fentanyl at 1 mcg/kg/h and propofol at 25 mcg/kg/m. Patient is sedated, however his ventilatory requirement does not s eem to be much, and there is a significant improvement in the air leak noted through the chest tube which was noted yesterday. And I was able to cut down his volume status 400 and kept him on the same rate. As a matter of fact I discontinued all his sedation today and I gave the patient a trial of IMV with pressure support of 10 backup rate of 8 on the IMV. And kept him on a PEEP of 8. Patient was gradually waking up, family is at bedside, and I updated the family on his status. His ABG today showed a pO2 of 86 pCO2 of 40 pH of 7.49, and this was on 50% FiO2. His complete metabolic profile seems to be relatively normal. Electrolytes are normal BUN however is 68 and creatinine is 1.43. If is improved compared to creatinine the last 2 days. Lovenox remains on hold, hematuria subsided, and we continued to have problem with placement of the orogastric tube, no GI coverage, and surgery is of decided whether to proceed with EGD at this point are not. Waiting to hear from surgery although they were notified over 24 hours ago, patient in the meantime is receiving TPN. We will have to make a decision regarding his Lovenox and possibly arrange for the patient to have IVC filter placement if there is going to be absolute contraindication to Lovenox. At this point there is no evidence of significant hematuria. And I may restart the patient back on Eliquis or Lovenox. Reevaluated today on 02/13/21, patient remains in the ICU, intubated and mechanically ventilated, and I had to place him back on Nimbex last night. He is presently on propofol at 30 mcg/kg/m, he is also on Nimbex at 2 mcg/kg/m. Patient is receiving Dilaudid as needed. ABG today showed a pO2 of 135 pCO2 63 pH of 7.24, and he was on assist control rate of 32 tidal volume 450 FiO2 75% and PEEP was at 8 tried patient on higher PEEP, however he was not doing well on higher PEEP, and I have noticed that whenever the patient goes on higher PEEP, we noticed more volume loss through the Pleur-evac/chest tube, hence I chose not to put him on higher PEEP today although there is no significant air leak noted today. I chose to keep the patient on assist control rate of 36 tidal volume remains at 450 cut down his FiO2 to 65 and possibly will cut it down further. PEEP remains at 8. Chest x-ray is showing cyst and bilateral infiltrates consistent with COVID-19 pneumonia and complete resolution of his right-sided pneumothorax tubes and catheters seem to be in proper positions. Last night I placed the patient back on Lovenox, and there is no evidence of further episodes of bleeding no further hematuria noted. Medications-sevilla the patient remains on albuterol, amiodarone is presently on hold because he could not place a orogastric tube in this patient. We have also tried including surgical staff, and we'll try again in the next 24 hours. In the meantime patient remains on TPN. Patient is also on ascorbic acid, Peridex, vitamin D, Nimbex was placed on hold today, Decadron 6 mg IV push daily, Lovenox 80 mg subcu twice a day, Lasix when necessary, he is not requiring norepinephrine today. 02/14/2021, the patient remains intubated on a mechanical ventilator. The patient has shown progress and currently he is on assist control mode at the rate of 36 with a tidal volume of 450, FiO2 of 60% with a PEEP of 8. Peak air pressure ranges between 24 and 28. Static pressure is low. The chest x-ray showing diffuse bilateral pulmonary infiltrates although infiltration of the lungs have been improving gradually and the patient has no evidence of air leak on his chest tube and there is no evidence of pneumothorax on today's chest x- ray. The blood gases from today shows a pH of 7.35 with a pCO2 of 49 and pO2 of 86. No significant orotracheal secretions. Note that the family has declined tracheostomy tube insertion and affect tube insertion for long-term care. The patient has been weaned off earlier and the child was given few days back when he was taken off sedation. He did fail as the patient was unable to maintain a saturation above 90% and he became quite asynchronous with a mechanical ventilator and he desaturated and became hypotensive. At that point, the child was aborted by the nuclear medicine specialist. This morning, he seems to be quite comfortable while on sedation. He is on propofol running at 50 mcg/kg per minute. He is also on a low-dose pressors with norepinephrine running at 0.06 mcg/kg per minute. His creatinine is stable at 1.2 and this has improved and there is a mean of 50 with a sodium level of 145, his white cell count is at 22.2 with a hemoglobin of 9.0 from yesterday. The patient has a triple lumen catheter in his left subclavian vein. Mary cath is in place. He does not have an OG due to difficulties in inserting the tube. Gen. surgery is going to do this via a EGD scope. Otherwise, the patient had no other significant changes overnight. He remains on Lovenox 80 mg subcu every 12 hours regarding his left lower extremity DVT. He remains on Decadron 6 mg IV every 24 hours. He is also on TPN. He is in sinus rhythm and he has been on Amiodarone orally 31 2020, the patient remains intubated on a mechanical ventilator. On today's e valuation, the patient's sedation has been switched to Precedex which is running at 0.4 mcg/kg per minute. The patient remains on a mechanical ventilator. This morning, he is quite synchronous an assist-control mode with a rate of 36 with a tidal volume of 450 and FiO2 of 60% with a PEEP of 8. His peak airway pressures ranging between 23 and 29. Note that the patient is having some double stacking at times and as such is hard to measure his airway pressures. Meanwhile, repeat chest x-ray was done today showed stable findings of bilateral pulmonary infiltrates. ET tube remains in a good location. There is infiltration of the lung bases bilaterally and there is a circular opacity that has evolved on today's chest x-ray probably representing an area of atelectasis. The patient also has a right-sided chest tube in place. No evidence of any pneumothorax. No evidence of any air leak and the Pleur-evac and output from the chest with essentially minimal serosanguineous drainage. The chest tube has been attached to low intermittent suction for now. The blood gas showed a pH of 7.36 with a pCO2 of 47 and pO2 of 58 and this was done on above-mentioned ventilator settings were an FiO2 of 60%. The patient otherwise is slightly hypotensive hypertensive and the patient is currently on clevidipine drip running at the dose of 6 mg an hour. His BP is under adequate control for now. The patient remains also on Decadron 6 mg IV every 24 hours. He remains on anticoagulation with Lovenox 80 mg subcu every 12 hours regarding her left lower extremity DVT. Unable to insert an OG tube and the patient remains on TPN for nutritional support. The patient is on Levemir insulin for blood sugar control 10 units daily along with NovoLog sliding scale coverage. White cell count of 18.5 with a hemoglobin at 8.7, BUN is at 43 with a creatinine of 1.02 and the sodium level is at 145. Blood sugar from today's to 18. No other significant changes otherwise. He has a DNR/DNI status and the family has also declined the possibility of a PEG tube with tracheostomy tube insertion on this patient. Heart rhythm is sinus. He remains on amiodarone 200 mg by mouth 3 times a day. Objective - Vital Signs Vital signs: Vital Signs Temp 98.4 F 02/14/21 20:00 Pulse 84 02/15/21 07:00 Resp 31 H 02/15/21 07:00 BP 138/68 02/15/21 07:00 Pulse Ox 88 L 02/15/21 07:00 Intake & Output 02/14/21 02/15/21 02/15/21 18:59 06:59 18:59 Intake Total 5509.877 7247.996 88 Output Total 1125 1420 75 Balance -21.250 -230.004 13 Weight 70.5 kg Intake: IV 276 276 23 Pressure Bag 0.9 sodium 36 36 3 chloride Sodium Chloride 0.9% 1, 240 240 20 000 ml @ 20 mls/hr IV . Q24H [facility] Rx#:[id number] Intake, IV Titration 827.750 913.996 65 Amount Clevidipine Butyrate 25 0 48.666 mg In Empty Bag 1 bag @ 1 MG/HR 2 mls/hr IV .Q24H [facility] Rx#:[id number] Dexmedetomidine/0.9% NaCl 30.532 85.330 (Pmx) 400 mcg In Empty Bag 1 bag @ 0.2 MCG/KG/HR 3.45 mls/hr IV .Q24H [facility] Rx#:[id number] Mvi, Adult No.4 with Vit 715 780 65 K 10 ml Trace (Conc-1Ml/ Dose) 1 ml Potassium Phosphate 9 mmol Sodium Chloride 4Meq/ml Vial 32 meq Calcium Gluconate 1 gm In Amino Acids 5 %/ Dextrose 20 % 1,000 ml @ 65 mls/hr IV .BY DURATION [facility] Rx#:[id number] propofoL 1,000 mg In 82.218 Empty Bag 1 bag @ Titrate IV .Q0M [facility] Rx#: [id number] Output: Chest Tube Drainage 60 Right Lower 60 Urine 1065 1420 75 Other: Voiding Method Indwelling Catheter Indwelling Catheter ABP, PAP, CO, CI - Last Documented Arterial Blood Pressure 136/41 - Exam Physical Exam: Revealed a 75-year-old white male , intubated and mechanically ventilated. Sedated and off paralyzed this morning. The patient has been switched from propofol to Precedex. Seems to be more arousable on today's evaluation compared to yesterday. Head: Atraumatic normocephalic. HEENT:[Neck is supple.] [No neck masses.] [No thyromegaly.] [No JVD.] Chest: Crackles at the bases bilaterally. No rhonchi and no wheezes, right- sided chest tube is noted connected to Pleur-evac, no air leak noted. Cardiac Exam: [Normal S1 and S2, no S3 gallop, no murmur.] Abdomen: [Soft, nontender, no megaly, no rebound, no guarding, normal bowel sounds.] Extremities: [No clubbing, no edema, no cyanosis.] Neurological remains sedated . I was told that he would grimace to painful stimulation. He does not follow any commands and this is based on earlier evaluations. Psychiatric: Did not assessed today patient is sedated Examination of the skin revealed no evidence of significant rashes, suspicious appearing nevi or other concerning lesions. - Labs CBC & Chem 7: 02/15/21 04:20 02/15/21 04:20 Labs: Abnormal Lab Results - Last 24 Hours (Table) 02/14/21 02/14/21 02/14/21 Range/Units 11:56 15:55 17:44 WBC 11.9 H (3.8-10.6) k/uL RBC 2.85 L (4.30-5.90) m/uL Hgb 8.3 L (13.0-17.5) gm/dL Hct 28.3 L (39.0-53.0) % MCV (80.0-100.0) fL MCHC 29.2 L (31.0-37.0) g/dL RDW 16.8 H (11.5-15.5) % Neutrophils # 11.5 H (1.3-7.7) k/uL Lymphocytes # 0.1 L (1.0-4.8) k/uL ABG pCO2 (35-45) mmHg ABG pO2 (83-108) mmHg ABG HCO3 (21-25) mmol/L ABG Total CO2 (19-24) mmol/L ABG O2 Saturation (94-97) % Chloride (98-107) mmol/L BUN (9-20) mg/dL Glucose (74-99) mg/dL POC Glucose (mg/dL) 211 H 205 H (75-99) mg/dL Calcium (8.4-10.2) mg/dL Phosphorus (2.5-4.5) mg/dL 02/14/21 02/15/21 02/15/21 Range/Units 23:51 04:20 04:20 WBC 18.5 H (3.8-10.6) k/uL RBC 2.93 L (4.30-5.90) m/uL Hgb 8.7 L (13.0-17.5) gm/dL Hct 29.3 L (39.0-53.0) % MCV 100.1 H (80.0-100.0) fL MCHC 29.7 L (31.0-37.0) g/dL RDW 16.8 H (11.5-15.5) % Neutrophils # 17.9 H (1.3-7.7) k/uL Lymphocytes # 0.2 L (1.0-4.8) k/uL ABG pCO2 (35-45) mmHg ABG pO2 (83-108) mmHg ABG HCO3 (21-25) mmol/L ABG Total CO2 (19-24) mmol/L ABG O2 Saturation (94-97) % Chloride 114 H (98-107) mmol/L BUN 43 H (9-20) mg/dL Glucose 235 H (74-99) mg/dL POC Glucose (mg/dL) 217 H (75-99) mg/dL Calcium 8.1 L (8.4-10.2) mg/dL Phosphorus 2.1 L (2.5-4.5) mg/dL 02/15/21 02/15/21 Range/Units 05:47 05:55 WBC (3.8-10.6) k/uL RBC (4.30-5.90) m/uL Hgb (13.0-17.5) gm/dL Hct (39.0-53.0) % MCV (80.0-100.0) fL MCHC (31.0-37.0) g/dL RDW (11.5-15.5) % Neutrophils # (1.3-7.7) k/uL Lymphocytes # (1.0-4.8) k/uL ABG pCO2 47 H (35-45) mmHg ABG pO2 58 L* (83-108) mmHg ABG HCO3 27 H (21-25) mmol/L ABG Total CO2 28 H (19-24) mmol/L ABG O2 Saturation 90.9 L (94-97) % Chloride (98-107) mmol/L BUN (9-20) mg/dL Glucose (74-99) mg/dL POC Glucose (mg/dL) 218 H (75-99) mg/dL Calcium (8.4-10.2) mg/dL Phosphorus (2.5-4.5) mg/dL Assessment and Plan Plan: #1. Acute hypoxic respiratory failure secondary to COVID-19 pneumonia. Patient is not nonvaccinated adult, his symptoms started on 01/17/2021. Patient took ivermectin on an outpatient basis prescribed by his [place] doctor. Patient refused Remdesivir. Is currently on Decadron, prophylactic anticoagulation, and COVID-19 vitamins. Patient was started on Baricitinib today on 01/27/2021 in view of progressive hypoxia and patient was on BiPAP . On 02/02/2021 patient was emergently transferred to the intensive care unit where he was intubated. Currently on assist control mode of ventilation . The patient remains intubated on mechanical ventilator. The patient remains sedated and he is off paralytics. I've noted some gradual improvement in the patient's condition over the past week or so. Hemodynamically, he is requiring low-dose pressors. His pneumothorax has been well treated with a right-sided chest tube. He remains on Decadron. Is DVT is also treated with therapeutic dose of Lovenox forany acute bleeding. On today's evaluation, which to make an adjustment on the patient's sedation. I switched him to a Precedex drip. Nevertheless, he is still not arousable. He is not following commands. He was also getting asynchronous mechanical ventilator. I switched him to a VC plus mode and CBC much more comfortable at this point in time. Remains on Decadron. He remains articulation with Lovenox. Chest x-ray findings are essentially unchanged. Right-sided chest tube is in place. No evidence of any air leak. No evidence of any pneumothorax. #2. right lower lobe partially occlusive PE with subsegmental extension diagnosed by CT angiogram of the chest on 01/30/2021. Subsequent evaluation showed left popliteal DVT and a right superficial vein thrombosis and for that reason the patient has been transitioned into therapeutic dose of Lovenox. No evidence of any bleeding for now. #3. Acute kidney injury, possibly related to COVID-19 related ATN, Creatinine stable and normal #4. Hematuria, see discussion above, improved #5. Elevated inflammatory markers related to the above, slightly improved and worsened again today on 01/31/2021. #6. Right-sided pneumothorax. Chest tube insertion with good results and has expansion of the right lung, no evidence of any air leak. #7. History of COPD with diffuse centrilobar emphysema #8. Former smoker #9. Coronary artery disease with previous coronary artery bypass grafting 4 in 2018 #10. Mitral valve repair #11. Crohn's disease #12. Hypertension #13. History of systolic CHF #14. Elevated d-dimer, and without CT evidence of pulmonary embolism, or DVT on bilateral lower extremity Dopplers #15. Leukocytosis awaiting follow-up white cell count from today. Most recent white cell count from yesterday was at 22 and the patient is running a low dose pressors for hemodynamic support. #16 Chronic anemia Plan: Continue ventilator support VC plus mode at a rate of 26 and tidal volume of 400 and FiO2 of 60% and a PEEP of 8. Chest tube to waterseal Propofol is been discontinued and the patient has been switched to Precedex Assessment patient and use Precedex for sadation while on a mechanical v entilator . Start the patient on Lovenox 80 mg subcu BID for DVT We will utilize clevidipine drip for blood pressure control currently running at 6 mg an hour Continue Decadron 6 mg daily, COVID-19 vitamins nutritional support with tube feedings, once OG tube is inserted. Following that, I'm going to discontinue the TPN and restart the patient on enteral feeding for nutritional support. Follow-up inflammatory markers, follow-up labs tomorrow Prognosis is extremely guarded We'll continue to follow, family declined Tracheostomy tube Family is opted to change his CODE STATUS to DO NOT RESUSCITATE Condition is critical we'll continue to follow make further recommendation based on her progress. Critically care evaluation that was on a more than 30 minutes. We'll contact the family and update the family of his ongoing progress. May consider comfort care measures of the patient's family declined further support via tracheostomy tube insertion. In my opinion, this may end up being a prolonged wean and obviously a tracheostomy tube may facilitate the weaning process. Time with Patient: Greater than 30 Time with Patient: Greater than 30
[2021-02-15] MEDS: ALBUTEROL HFA INHALER INHALATION SCH ×3 (08:32→16:28)
[2021-02-15] MEDS: DEXAMETHASONE SOD PHOSPHATE 10 MG/ML 1 ML VIAL IVP SCH (08:54)
[2021-02-15] MEDS: CHLORHEXIDINE GLUCONATE 15 ML CUP MUCOUS MEM SCH ×2 (08:54→20:43)
[2021-02-15] MEDS: ENOXAPARIN 80 MG/0.8 ML SYRINGE SQ SCH ×2 (08:54→20:43)
[2021-02-15] MEDS ORDERED: CEFEPIME 2 GM in SODIUM CHLORIDE 0.9% 100 ML IVPB SCH (09:00)
[2021-02-15] MEDS ORDERED: SODIUM PHOSPHATE 10 MMOL in SODIUM CHLORIDE 0.9% 100 ML IVPB ONE (09:00)
[2021-02-15] MEDS: 1: MVI, ADULT NO.4 WITH VIT K 10 ML, TRACE (CONC-1ML/DOSE) 1 ML, POTASSIUM PHOSPHATE 9 M IV SCH ×12 (09:21→21:34)
[2021-02-15 12:19] LABS: Glucose,Whole Blood 200 mg/dL (75-99)
[2021-02-15 12:30] VITALS: BMI 21.7
--- NOTE | 2021-02-15 12:54 | P.PN ---
Progress Note - Text Progress Note Date: 02/15/21 Patient remains unchanged. The family decided against possible tracheostomy and PEG tube placement. We will sign off. Please contact as needed
[2021-02-15] MEDS: HYDROmorphone 1 MG/ML 1 ML SYRINGE IVP PRN ×3 (13:10→19:01)
--- NOTE | 2021-02-15 16:26 | P.PN ---
Progress Note - Text Progress Note Date: 02/15/21 Hospital course: 74-year-old patient who follows with Dr. Mauricio Keith. Tonic stable medical conditions include hypertension, Crohn's disease, nephrolithiasis, BPH, hypertension, tinnitus, COPD, CAD with bypass. EF of 20-25%. Presented with shortness of breath. Diagnosed with COVID 19 on January 18 symptoms starting 1 day before. He was found to be hypoxic at home. Upon arrival he was 85%. Patient declined treatment with Remdesivir. Patient had been taking ivermectin as outpatient. She requested this to be continued. This was declined by the admitting team as this was not approved treatment. Patient not vaccinated against COVID. She did with subcu Lovenox and dexamethasone. January 24: Patient feeling better. On 3 L nasal cannula. Oral intake fair. Up in a bed. Slight cough. January 25: Sitting up in a recliner. Tired. Has some chest tightness. 92% on 4 L. Oral intake good. January 26: Bit more short of breath. Oxygen requirement: Up to 15 L. Had low-grade fever. Eating about 50-75%. Tired. Up in a chair. January 27: Short of breath. Sitting at the edge of the bed. 15 L nasal cannula. Decreased appetite. January 28: Laying in bed. Tired. Short of breath. On 15 L nonrebreather. Oral intake fair. Started on Baricitinib by pulmonary January 29: Patient is become more short of breath. Placed on BiPAP. Decreased oral intake. Tired. On Baricitinib, dexamethasone. January 30: Sitting up in a chair. Using BiPAP. Short of breath. Decreased oral intake. On Baricitinib) dexamethasone. Acute PE on CT chest. Started on eliquis January 31: Sitting at the edge of the bed. BiPAP. Short of breath. Tired. On eliquis, on Baricitinib, dexamethasone. February 01: Laying in bed. Short of breath. BiPAP. Tired. On Baricitinib, dexamethasone, eliquis. Eating reasonably well. February 02: Rather tired short of breath BiPAP 100%. On dexamethasone, eliquis February 03: ICU: Intubated yesterday. Prone position. Ventilator FiO2 70 PEEP of 12. Drips included propofol and Nimbex. February 08: ICU: Ventilator FiO2 52 PEEP of 14. 2 feeding at 30 mL an hour. Went into an episode of rapid A. fib last night. Given IV amiodarone. Current drips include norepinephrine, Nimbex, propofol, fentanyl February 09: ICU: Ventilator: FiO2 40 and a PEEP of 14. 2 feeding at 30 mL an hour. Drips include fentanyl, propofol. Atrial fibrillation controlled February 10: ICU: On the ventilator. FiO2 15 a PEEP of 14. Drips included propofol and fentanyl. Atrial fibrillation controlled. Earlier hemoglobin dropped to 6.7. No evidence of bleeding. 1 unit of blood ordered. February 11: ICU: Ventilator 50/6. Patient developed significant hematuria overnight. Neurology consulted. Patient developed a spontaneous right-sided pneumothorax. Chest tube placed. Trouble with OG tube placement. February 12: ICU: Ventilator 50/8. Patient been off sedation. Chest tube on the right side. About 2 and 40 mL in last 24 hours. Patient is on TPN. No lipids. Telemetry shows sinus rhythm. Patient's daughter and Cleviprex today. Bladder was flushed. Some clearing of the hematuria. February 13: ICU: Ventilator FiO2 60. Weight. TPN. Chest tube in place. Telemetry shows sinus rhythm. His include norepinephrine propofol. Nimbex taken off. Urine is more orange colored. February 14: ICU: Atrial fibrillation. Ventricular 60/80. On IV Precedex. Chest tube in place. Crane colored urine. at the bedside. February 15: ICU: Patient extubated today. Patient is not to be intubated. Family members at the bedside. On BiPAP. This included Precedex. Has been on TPN. Review of systems: Patient on BiPAP Active Medications Acetaminophen (Acetaminophen Tab 325 Mg Tab) 650 mg PO Q6HR PRN PRN Reason: Fever and/ or Pain Last Admin: 02/02/21 06:07 Dose: 650 mg Documented by: Albuterol Sulfate (Albuterol Hfa Inhaler) 2 puff INHALATION RT-QID [facility] Last Admin: 02/15/21 13:47 Dose: Not Given Documented by: Albuterol Sulfate (Albuterol Hfa Inhaler) 4 puff INHALATION RT-QID PRN PRN Reason: Shortness Of Breath Or Wheezing Ascorbic Acid (Ascorbic Acid 500 Mg Tab) 2,000 mg PO DAILY [facility] Last Admin: 02/15/21 07:55 Dose: Not Given Documented by: Chlorhexidine Gluconate (Chlorhexidine Gluconate 15 Ml Cup) 15 ml MUCOUS MEM BID [facility] Last Admin: 02/15/21 08:54 Dose: 15 ml Documented by: Cholecalciferol (Cholecalciferol 125 Mcg (5000 Iu) Tablet) 125 mcg PO DAILY [facility] Last Admin: 02/15/21 07:55 Dose: Not Given Documented by: Cyanocobalamin (Cyanocobalamin 500 Mcg Tab) 4,000 mcg PO DAILY [facility] Last Admin: 02/15/21 07:55 Dose: Not Given Documented by: Dexamethasone Sodium Phosphate (Dexamethasone Sod Phosphate 10 Mg/Ml 1 Ml Vial) 6 mg IVP DAILY [facility] Last Admin: 02/15/21 08:54 Dose: 6 mg Documented by: Enoxaparin Sodium (Enoxaparin 80 Mg/0.8 Ml Syringe) 80 mg SQ BID [facility] Last Admin: 02/15/21 08:54 Dose: 80 mg Documented by: Hydromorphone HCl (Hydromorphone 1 Mg/Ml 1 Ml Syringe) 1 mg IVP Q3HR PRN PRN Reason: pain Last Admin: 02/15/21 13:10 Dose: 1 mg Documented by: Propofol 1,000 mg/ IV Solution 100 mls @ 0 mls/hr IV .Q0M [facility]; Protocol Last Admin: 02/14/21 07:49 Dose: 50 mcg/kg/min, 20.7 mls/hr Documented by: Cisatracurium Besylate 200 mg/ (Sodium Chloride) 200 mls @ 8.709 mls/hr IV .[id number] [facility]; Protocol Last Admin: 02/15/21 05:07 Dose: Not Given Documented by: Norepinephrine Bitartrate 4 mg (/ Sodium Chloride) 254 mls @ 13.826 mls/hr IV .[id number] [facility]; Protocol Last Admin: 02/14/21 06:03 Dose: 0.06 mcg/kg/min, 16.591 mls/hr Documented by: Clevidipine 25 mg/ IV Solution 50 mls @ 2 mls/hr IV .Q24H [facility]; Protocol Last Admin: 02/15/21 10:09 Dose: 7 mg/hr, 14 mls/hr Documented by: Sodium Chloride (Saline 0.9%) 1,000 mls @ 20 mls/hr IV .Q24H [facility] Last Admin: 02/14/21 17:27 Dose: 20 mls/hr Documented by: Parenteral Vitamin Supplement 10 ml/ Zinc/Copper/Manganese/Selenium 1 ml/ Potassium Phosphate 9 mmol/ Sodium Chloride 32 meq/ Calcium Gluconate 1 gm/ Amino Acids/Dextrose 1,032 mls @ 65 mls/hr IV .BY DURATION [facility] Stop: 02/16/21 09:30 Last Admin: 02/15/21 09:21 Dose: 65 mls/hr Documented by: Potassium Phosphate 9 mmol/Sodium Chloride 32 meq/Calcium Gluconate 1 gm/ Amino Acids/Dextrose 1,021 mls @ 65 mls/hr IV .BY DURATION [facility] Stop: 02/16/21 09:30 Last Admin: 02/14/21 02:19 Dose: 65 mls/hr Documented by: Dexmedetomidine HCl 400 mcg/ (IV Solution) 100 mls @ 3.45 mls/hr IV .Q24H [facility]; Protocol Last Admin: 02/15/21 16:17 Dose: 0.7 mcg/kg/hr, 12.075 mls/hr Documented by: Parenteral Vitamin Supplement 10 ml/ Zinc/Copper/Manganese/Selenium 1 ml/ Potassium Phosphate 15 mmol/ Sodium Chloride 26 meq/ Calcium Gluconate 1 gm/ Amino Acids/Dextrose 1,032.5 mls @ 30 mls/hr IV .BY DURATION [facility] Potassium Phosphate 15 mmol/Sodium Chloride 26 meq/Calcium Gluconate 1 gm/ Amino Acids/Dextrose 1,021.5 mls @ 30 mls/hr IV .BY DURATION [facility] Insulin Aspart (Insulin Aspart (Novolog) 100 Unit/Ml Vial) 0 unit SQ Q6H [facility]; Protocol Last Admin: 02/15/21 12:57 Dose: 2 unit Documented by: Insulin Detemir (Insulin Detemir (Levemir) 100 Unit/Ml Syr) 10 unit SQ DAILY@0700 [facility] Last Admin: 02/15/21 06:55 Dose: 10 unit Documented by: Lorazepam (Lorazepam 2 Mg/Ml Inj) 1 mg IV Q4HR PRN PRN Reason: Anxiety Last Admin: 02/12/21 15:34 Dose: 1 mg Documented by: Miscellaneous Information (Potassium Replacement Protocol 1 Each Misc) 1 each MISCELLANE DAILY PRN; Protocol PRN Reason: Per Protocol Tamsulosin HCl (Tamsulosin 0.4 Mg Cap.Er.24h) 0.4 mg PO BID [facility] Last Admin: 02/15/21 07:55 Dose: Not Given Documented by: Zinc Sulfate (Zinc Sulfate 220 Mg Cap) 220 mg PO DAILY [facility] Last Admin: 02/15/21 07:56 Dose: Not Given Documented by: On examination: VITAL SIGNS: Afebrile, 64, 19, 100/59, 97% on BiPAP GENERAL APPEARANCE: , Lethargic right-sided chest tube. Slight orange urine in the Mary catheter: RESPIRATORY: Respiratory effort increased. PSYCHIATRY: Unable to assess, lethargic Rest of the exam per pulmonary and nursing INVESTIGATIONS, reviewed in the clinical context: February 15: White count 8.5 hemoglobin 8.7 potassium 4 creatinine 1.02 February 14: Potassium 3.9 creatinine 1.2. Chest x-ray: Infiltrates February 13: White count 22.2 hemoglobin 9 platelets 427 ABG: PH 7.2 pCO2 63 pO2 135 potassium 4. 60 creatinine 1.5 for February 12: Sodium 142 BUN 68 creatinine 1.43 February 11: White count 12.7 hemoglobin 9.7 platelets 432 potassium 4.6 BUN 72 creatinine 1.8 seventh. Chest x-ray shows right-sided pneumothorax February 10: WBC 10.6 hemoglobin 6.7 platelets. Potassium 4.4 BUN 72 creatinine 1.4 to February 09: White count 9.5 hemoglobin 8.7 platelets 374 ABG: PCO2 35 pO2 56 potassium 5 creatinine 1.07. Chest x-ray: Bilateral infiltrates February 08: WBC 11.5 hemoglobin 8 platelets 450 potassium 4.7 BUN 63 creatinine 1.47 Doppler ultrasound [February 05] DVT in the left popliteal vein and right lower extremity superficial vein February 03: W BC 21.5 hemoglobin 8.8 platelets 267 ABG: PH 7.25 pCO2 34 pO2 93 potassium 4.6 creatinine 1.39 February 02: White count 18.4 hemoglobin 9. ABG: PH 7.5 pO2 58 creatinine 1.18. Chest x-ray: Worsening February 01: White count 16.7 hemoglobin 9.7 d-dimer greater than 34 BUN 45 creatinine 1.27 January 31: WBC 13.1 COVID 10.3 d-dimer greater than 34 potassium 4.5 creatinine 1.26 CRP 3.5 January 30: WBC 10.4 hemoglobin 9.8 platelets 145 potassium 4.5 creatinine 1.4. AST [address] angiogram for PE [January 30] new Pasia occlusive embolism segmental bronchus right lower lobe with segmental extension. Doppler ultrasound [January 29]: Superficial thrombosis in the right lesser saphenous vein. January 29: D-dimer greater than 34 potassium 4.4 BUN 67 creatinine 1.61 AST 174 ALT 73 January 28: WBC 10.2 hemoglobin 11.4 platelets 154 d-dimer greater than 34 sodium 136 potassium 4.9. 43 creatinine 1.29 January 27: WBC 11.8 hemoglobin 10.5 January 26: White count 11.8 hemoglobin 11.5 d-dimer 12.6 CRP 7.3 White count 5.9 hemoglobin 12.3 platelets 162 d-dimer 0.93 potassium 4.1 creatinine 0.86 CRP 4.4 Admission labs: Pro-calcitonin 0.04 Coronavirus [PCR]: Detected D-dimer 0.83 EKG tracing personally reviewed by me-sinus bradycardia. Rate 55 Chest x-ray: biLateral infiltrates Assessment and plan: -Bilateral COVID 19 pneumonitis: Not improving Dexamethasone. Subcu Lovenox. (declined Remdesivir. patient was taking ivermectin at home). Baricitinib given -Spontaneous right-sided pneumothorax on February 11 Right-sided chest tube -Acute severe hematuria.: Improving Follow H&H. Urology consulted -Acute pulmonary embolism, along with DVT: Lovenox subcu -Septic shock:better Received IV levo fed -Acute hypoxic respiratory failure from COVID 19: Not improving Intubated February 02. Extubated February 15. On BiPAP. -Essential hypertension: Currently blood pressure is running low -Chronic Crohn's disease Pentasa 1000 milligrams 3 times a day - nephrolithiasis Follow clinically -Acute kidney injury. Possibly ATN from COVID 19 causing infection and hypotension: Slow to respond Follow nephrology -Paroxysmal atrial fibrillation with episodes of rapid ventricular rate: Currently sinus rhythm Amiodarone -BPH Flomax 0.4 mg twice a day -COPD in a previous smoker Pulmicort -Chronic tinnitus with hearing impairment -CAD with bypass Aspirin, beta billy, Lipitor -Hyperlipidemia Lipitor 40 mg daily -Acute hepatitis: Improving hold Lipitor. Follow LFT -Full code -TPN Right-sided chest tube. On TPN. Therapeutic dose of Lovenox. Extubated today. Not for reintubation. BiPAP. Family at the bedside. Prognosis guarded.
[2021-02-15 19:10] LABS: Glucose,Whole Blood 217 mg/dL (75-99)
[2021-02-15] MEDS: SODIUM CHLORIDE 0.9% 1,000 ML IV SCH (20:43)
[2021-02-15] MEDS ORDERED: AMIODARONE 200 MG TAB PO SCH (21:00)
[2021-02-15] MEDS: LORazepam 2 MG/ML INJ IV PRN (21:25)
[2021-02-15 21:37] VITALS: BP 120/67
[2021-02-16 00:24] LABS: Glucose,Whole Blood 162 mg/dL (75-99)
[2021-02-16] MEDS: INSULIN ASPART (NovoLOG) 100 UNIT/ML VIAL SQ SCH ×3 (00:24→11:44)
[2021-02-16] MEDS: HYDROmorphone 1 MG/ML 1 ML SYRINGE IVP PRN ×2 (01:19→08:24)
[2021-02-16] MEDS: LORazepam 2 MG/ML INJ IV PRN (03:30)
[2021-02-16] MEDS: CISATRACURIUM 200 MG in SODIUM CHLORIDE 0.9% 180 ML IV SCH (05:08)
[2021-02-16 05:16] LABS: Anisocytosis Slight; Basophils % (A) 0 %; Eosinophils % (A) 0 %; HCT 23.8 % (39.0-53.0); Hypochromasia Marked; Lymphocytes # (A) 0.1 k/uL (1.0-4.8); Lymphocytes % (A) 1 %; MCH 29.1 pg (25.0-35.0); MCHC 30.2 g/dL (31.0-37.0); MCV 96.5 fL (80.0-100.0); Macrocytosis Slight; Mean Platelet Volume 8.7; Monocytes # (A) 0.3 k/uL (0-1.0); Monocytes % (A) 3 %; Neutrophils # (A) 7.4 k/uL (1.3-7.7); Neutrophils % (A) 95 %; Platelet Count 307 k/uL (150-450); Poikilocytosis Slight; RBC 2.47 m/uL (4.30-5.90); RDW 17.1 % (11.5-15.5); WBC 7.8 k/uL (3.8-10.6)
[2021-02-16 05:29] LABS: HGB 7.2 gm/dL (13.0-17.5)
[2021-02-16 05:33] LABS: Calcium 7.7 mg/dL (8.4-10.2); Phosphorus 2.1 mg/dL (2.5-4.5); Potassium 3.9 mmol/L (3.5-5.1)
[2021-02-16] MEDS: DEXMEDETOMIDINE/0.9% NACL(PMX) 400 MCG in EMPTY BAG 1 BAG IV SCH (06:05)
[2021-02-16] MEDS ORDERED: POTASSIUM PHOSPHATE 10 MMOL in SODIUM CHLORIDE 0.9% 100 ML IV ONE (08:00)
--- NOTE | 2021-02-16 08:04 | P.PN ---
Subjective Progress Note Date: 02/16/21 Principal diagnosis: COVID-19 pneumonia This is a 75-year-old male patient who follows with Dr. Mauricio Keith is his primary care provider. He has a history of coronary artery disease with previous coronary artery bypass grafting, mitral valve replacement, hypertension, hyperlipidemia, chronic obstructive pulmonary disease, former smoker, Crohn's disease. On January 17 the patient started having symptoms of fever cough congestion weakness and was tested for COVID-19 on January 18. He found out his results on January 21 and was told to stay home and rest unless his symptoms worsened. He was given doxycycline and prednisone 20 mg twice a day. His brought him into the emergency room here today as his oxygen levels were dropping at home. Chest x-rays revealing patchy bilateral interstitial pneumonia with underlying COPD. White count 2.8. Hemoglobin 12.9. Platelets 149. Lymphocytes 0.2. D-dimer 0.83. Sodium 133. Potassium 4.7. Creatinine 1.06. Glucose 154. AST 122. ALT 75. LDH 1082. C-reactive protein 6.4. Chronic virus by PCR positive. The patient is not vaccinated. He is seen today in the emergency room. Awake and alert in no acute distress. Sitting up on a stretcher. He is 85% O2 saturation on room air. 93% on 2 L per nasal cannula. Afebrile. Hemodynamically stable. He's been initiated on Lovenox and vitamin supplements. He will be started on Decadron. We discussed with him the possibility for Remdesivir which he is reluctant to receive. His who is sitting next to him is also having symptoms and she plans to go get tested today. The patient is seen today 01/24/2021 in follow-up on the observation unit. He is currently sitting up in bed. Awake and alert in no acute distress. He is feeling quite a bit better. Feeling stronger today. He did decline Remdesivir. He has been maintained on Lovenox, Decadron, vitamin supplements. He is currently maintaining O2 saturation in the low 90s on 3 L/m per nasal cannula. He's been afebrile. Hemodynamically stable. Chest x-ray continues to show increased bilateral infiltrates. White count 5.9. Hemoglobin 12.3. D-dimer 0.93. Sodium 134. Potassium 4.1. Creatinine 0.86. Glucose 158. AST 87. ALT 62. LDH 81. C-reactive protein 4.4. The patient is seen today 02/02/2021 in follow-up on the regular medical floor. His oxygen requirements have continued to climb. An A team was called on him this morning. He is currently on BiPAP 15/7 and 100% FiO2 to maintain O2 saturations in the low 90s. Arterial blood gases revealed a pO2 of 58, pCO2 of 41 and a pH is 7.50. He's been afebrile. His x-ray continues to reveal bilateral patchy airspace disease consistent with COVID-19 pneumonia with noted progression. White count 18.4. Hemoglobin 9.0. Lymphocytes 0.1. D-dimer greater than 34. Sodium 135. Potassium 4.6. Creatinine 1.18. AST 77. ALT 29. He is anticoagulated with Eliquis. Remains on Baricitinib. Continued on Decadron and vitamin supplements. The patient is seen today 02/16/2021 in follow-up in the intensive care unit. He had subsequently required intubation mechanical ventilatory support. He was on the ventilator for many days and his family decided to have the patient extubated not to be reintubated versus moving forward with tracheostomy and PEG tube placements. He is currently on BiPAP 10/5 and 75% FiO2. He is arousable. Mostly moaning. He is receiving TPN and lipids for nutritional support. 0.9 normal saline at KVO. He is remaining in sinus rhythm with frequent PACs and P BCs. He is currently hypertensive. O2 saturation on 88%. Respiratory rate 28. Minimal urine output. Right-sided chest tube remains in place to waterseal. There is a small amount of serous sanguinous fluid return. White count 7.8. Hemoglobin 7.2. Platelets 307. Monocytes 0.1. Sodium 146. Potassium 3.9. Creatinine 1.0. Glucose 148. He is continued on morphine as needed. He is kept comfortable on Precedex at 0.4 mg/kg/hour Objective - Vital Signs Vital signs: Vital Signs Temp 98.9 F 02/16/21 04:00 Pulse 49 L 02/16/21 07:00 Resp 17 02/16/21 07:00 BP 120/67 02/16/21 07:00 Pulse Ox 93 L 02/16/21 07:00 Intake & Output 1202/16/21 02/16/21 18:59 06:59 18:59 Intake Total 1527.576 315.445 Output Total 698 760 Balance 829.576 -444.555 Weight 70.5 kg 70.5 kg Intake: IV 276 299 Pressure Bag 0.9 sodium 36 39 chloride Sodium Chloride 0.9% 1, 240 260 000 ml @ 20 mls/hr IV . Q24H [facility] Rx#:[id number] Intake, IV Titration 1251.576 16.445 Amount Clevidipine Butyrate 25 34.200 mg In Empty Bag 1 bag @ 1 MG/HR 2 mls/hr IV .Q24H [facility] Rx#:[id number] Dexmedetomidine/0.9% NaCl 120.376 16.445 (Pmx) 400 mcg In Empty Bag 1 bag @ 0.2 MCG/KG/HR 3.45 mls/hr IV .Q24H [facility] Rx#:[id number] Mvi, Adult No.4 with Vit 1097 K 10 ml Trace (Conc-1Ml/ Dose) 1 ml Potassium Phosphate 9 mmol Sodium Chloride 4Meq/ml Vial 32 meq Calcium Gluconate 1 gm In Amino Acids 5 %/ Dextrose 20 % 1,000 ml @ 65 mls/hr IV .BY DURATION [facility] Rx#:[id number] Output: Urine 698 760 Other: Voiding Method Indwelling Catheter Indwelling Catheter ABP, PAP, CO, CI - Last Documented Arterial Blood Pressure 131/32 - Exam GENERAL EXAM: Obtunded, arousable, 75-year-old gentleman, on BiPAP 10/5 and 75% FiO2, and mild respiratory distress. HEAD: Normocephalic. EYES: Normal reaction of pupils, equal size. NOSE: Clear with pink turbinates. THROAT: No erythema or exudates. NECK: No masses, no JVD. CHEST: No chest wall deformity. LUNGS: Equal air entry with coarse crackles bilaterally. CVS: S1 and S2 normal with no audible murmur, regular rhythm. ABDOMEN: No hepatosplenomegaly, normal bowel sounds, no guarding or rigidity. SPINE: No scoliosis or deformity SKIN: No rashes CENTRAL NERVOUS SYSTEM: No focal deficits, tone is normal in all 4 extremities. EXTREMITIES: There is no peripheral edema. No clubbing, no cyanosis. Peripheral pulses are intact. - Labs CBC & Chem 7: 02/16/21 05:00 02/16/21 05:00 Labs: Abnormal Lab Results - Last 24 Hours (Table) 02/15/21 02/15/21 02/15/21 Range/Units 04:20 12:17 19:09 WBC 18.5 H (3.8-10.6) k/uL RBC 2.93 L (4.30-5.90) m/uL Hgb 8.7 L (13.0-17.5) gm/dL Hct 29.3 L (39.0-53.0) % MCV 100.1 H (80.0-100.0) fL MCHC 29.7 L (31.0-37.0) g/dL RDW 16.8 H (11.5-15.5) % Neutrophils # 17.9 H (1.3-7.7) k/uL Lymphocytes # 0.2 L (1.0-4.8) k/uL Sodium (137-145) mmol/L Chloride (98-107) mmol/L BUN (9-20) mg/dL Glucose (74-99) mg/dL POC Glucose (mg/dL) 200 H 217 H (75-99) mg/dL Calcium (8.4-10.2) mg/dL Phosphorus (2.5-4.5) mg/dL 02/16/21 02/16/21 02/16/21 Range/Units 00:22 05:00 05:00 WBC (3.8-10.6) k/uL RBC 2.47 L (4.30-5.90) m/uL Hgb 7.2 L D (13.0-17.5) gm/dL Hct 23.8 L (39.0-53.0) % MCV (80.0-100.0) fL MCHC 30.2 L (31.0-37.0) g/dL RDW 17.1 H (11.5-15.5) % Neutrophils # (1.3-7.7) k/uL Lymphocytes # 0.1 L (1.0-4.8) k/uL Sodium 146 H (137-145) mmol/L Chloride 117 H (98-107) mmol/L BUN 50 H (9-20) mg/dL Glucose 148 H (74-99) mg/dL POC Glucose (mg/dL) 162 H (75-99) mg/dL Calcium 7.7 L (8.4-10.2) mg/dL Phosphorus 2.1 L (2.5-4.5) mg/dL Assessment and Plan Assessment: 1 Acute hypoxemic respiratory failure secondary to COVID-19 pneumonia. Not vaccinated. Symptoms started 01/17/2021. The patient's symptoms have progressed. Chest x-ray shows worsening bilateral infiltrates. He ended up on the mechanical ventilator for several days. The plan was for tracheostomy and PEG tube placement however the family declined. Yesterday he was extubated to BiPAP not to be reintubated. He is a DO NOT RESUSCITATE/DO NOT INTUBATE CODE STATUS now. Not quite to comfort care. The family still deciding. He is curr ently on BiPAP 10/5 with an FiO2 of 75%. Maintaining O2 saturations 88-89%. He has been nourished with TPN and lipids. He is on Precedex at 0.4 mcg/kg per hour. He did receive Ativan for restlessness. He is obtunded and minimally arousable. 2 Elevated inflammatory markers secondary to above 3 Elevated liver enzymes 4 Chronic obstructive pulmonary disease with diffuse central lobar emphysema 5 Former smoker 6 Coronary artery disease with previous coronary artery bypass grafting 2017 7 Mitral valve repair 8 Crohn's disease 9 Hypertension 10 History of systolic congestive heart failure Plan: The patient was seen and evaluated He was extubated to BiPAP yesterday The family declined to go forward with tracheostomy and PEG tube placement He is a DO NOT RESUSCITATE/DO NOT INTUBATE CODE STATUS They are deciding on possible comfort care Now requiring BiPAP 10/5 and 75% FiO2 He is being nourished with TPN and lipids We will continue with supportive care for now We will continue to follow and make further recommendations based on his clinical status I, the cosigning physician, performed a history & physical examination of the patient. Lungs sounds with crackles in the bilateral lung hernandez. Maintaining O2 saturations in the 90s on BiPAP 10/5 and 75% FiO2. I discussed the assessment and plan of care with my nurse practitioner, Jory Camacho. I attest to the above note as dictated by her.
[2021-02-16] MEDS: DEXAMETHASONE SOD PHOSPHATE 10 MG/ML 1 ML VIAL IVP SCH (08:15)
[2021-02-16] MEDS: ENOXAPARIN 80 MG/0.8 ML SYRINGE SQ SCH (08:15)
[2021-02-16] MEDS: INSULIN DETEMIR (LEVEMIR) 100 UNIT/ML SYR SQ SCH (08:16)
[2021-02-16 08:39] VITALS: TEMP 98.5
--- NOTE | 2021-02-16 08:53 | P.PN ---
Subjective Patient is seen in follow-up for acute kidney injury. Renal function improved. On BiPAP. Receiving TPN. Sodium level 146 this morning. Vital signs are stable. HEENT: BiPAP. LUNGS: Breath sounds decreased. HEART: Rate and Rhythm are regular. ABDOMEN: Soft, no distention. EXTREMITITES: No edema. Objective - Vital Signs Vital signs: Vital Signs Temp 98.5 F 02/16/21 08:30 Pulse 79 02/16/21 08:30 Resp 25 H 02/16/21 08:30 BP 120/67 02/16/21 08:00 Pulse Ox 88 L 02/16/21 08:30 Intake & Output 02/15/21 02/16/21 02/16/21 18:59 06:59 18:59 Intake Total 1527.576 315.445 Output Total 698 760 Balance 829.576 -444.555 Weight 70.5 kg 70.5 kg Intake: IV 276 299 Pressure Bag 0.9 sodium 36 39 chloride Sodium Chloride 0.9% 1, 240 260 000 ml @ 20 mls/hr IV . Q24H CHERYL Rx#:[id number] Intake, IV Titration 1251.576 16.445 Amount Clevidipine Butyrate 25 34.200 mg In Empty Bag 1 bag @ 1 MG/HR 2 mls/hr IV .Q24H CHERYL Rx#:[id number] Dexmedetomidine/0.9% NaCl 120.376 16.445 (Pmx) 400 mcg In Empty Bag 1 bag @ 0.2 MCG/KG/HR 3.45 mls/hr IV .Q24H CHERYL Rx#:[id number] Mvi, Adult No.4 with Vit 1097 K 10 ml Trace (Conc-1Ml/ Dose) 1 ml Potassium Phosphate 9 mmol Sodium Chloride 4Meq/ml Vial 32 meq Calcium Gluconate 1 gm In Amino Acids 5 %/ Dextrose 20 % 1,000 ml @ 65 mls/hr IV .BY DURATION CHERYL Rx#:[id number] Output: Urine 698 760 Other: Voiding Method Indwelling Catheter Indwelling Catheter ABP, PAP, CO, CI - Last Documented Arterial Blood Pressure 181/57 - Labs CBC & Chem 7: 02/16/21 05:00 02/16/21 05:00 Labs: Abnormal Lab Results - Last 24 Hours (Table) 02/15/21 02/15/21 02/16/21 Range/Units 12:17 19:09 00:22 RBC (4.30-5.90) m/uL Hgb (13.0-17.5) gm/dL Hct (39.0-53.0) % MCHC (31.0-37.0) g/dL RDW (11.5-15.5) % Lymphocytes # (1.0-4.8) k/uL Sodium (137-145) mmol/L Chloride (98-107) mmol/L BUN (9-20) mg/dL Glucose (74-99) mg/dL POC Glucose (mg/dL) 200 H 217 H 162 H (75-99) mg/dL Calcium (8.4-10.2) mg/dL Phosphorus (2.5-4.5) mg/dL 02/16/21 02/16/21 Range/Units 05:00 05:00 RBC 2.47 L (4.30-5.90) m/uL Hgb 7.2 L D (13.0-17.5) gm/dL Hct 23.8 L (39.0-53.0) % MCHC 30.2 L (31.0-37.0) g/dL RDW 17.1 H (11.5-15.5) % Lymphocytes # 0.1 L (1.0-4.8) k/uL Sodium 146 H (137-145) mmol/L Chloride 117 H (98-107) mmol/L BUN 50 H (9-20) mg/dL Glucose 148 H (74-99) mg/dL POC Glucose (mg/dL) (75-99) mg/dL Calcium 7.7 L (8.4-10.2) mg/dL Phosphorus 2.1 L (2.5-4.5) mg/dL Assessment and Plan Plan: Assessment: 1. Acute kidney injury secondary to ATN secondary to infection and hypotension. Renal function improving. Creatinine 1.0 today. Nonoliguric. 2. COVID-19 pneumonia. 3. Coronary disease status post CABG. 4. PE, on Lovenox. 5. Benign hypertension. Off vasopressors. 6. Acute hypoxic respiratory failure. 7. Hypernatremia from the cough oral water intake. Plan: Start D5W at 50 mL an hour. Receiving TPN. Wean FiO2. Continue to monitor renal function and urine output.
[2021-02-16] MEDS ORDERED: DEXTROSE 5% IN WATER 1,000 ML IV SCH (09:00)
[2021-02-16] MEDS ORDERED: MORPHINE SULFATE 4 MG/ML SYRINGE IV PRN (11:22)
[2021-02-16] MEDS ORDERED: GLYCOPYRROLATE 0.2 MG/ML 2 ML VIAL IVP PRN (11:22)
[2021-02-16] MEDS ORDERED: MORPHINE SULFATE 4 MG/ML SYRINGE IVP ONE (11:22)
[2021-02-16] MEDS ORDERED: ARTIFICIAL TEARS-HYPROMELLOSE DROPS 15 ML BTL BOTH EYES PRN (11:22)
[2021-02-16] MEDS ORDERED: MORPHINE SULFATE (100 MG/2 ML) 100 MG in SODIUM CHLORIDE 0.9% 100 ML IV SCH (12:00)
--- NOTE | 2021-02-16 14:17 | P.DS ---
Providers Date of admission: 01/23/21 07:52 Expected date of discharge: 02/16/21 Attending physician: Delvis Huffman Consults: 01/23/21 07:59 Consult Physician Urgent Consulting Provider: Lakhwinder Harmon Consult Reason/Comments: hypoxia, covid Do you want consulting provider notified?: Yes 01/29/21 12:40 Consult Physician Routine Consulting Provider: Nahomi Sumner Consult Reason/Comments: MANDY Do you want consulting provider notified?: Yes 02/03/21 11:33 Consult Physician Routine Consulting Provider: Miki Ramírez Consult Reason/Comments: hematuria Do you want consulting provider notified?: Yes 02/08/21 09:49 Consult Physician Routine Consulting Provider: Marylu Bonds Consult Reason/Comments: atrial fibrillation Do you want consulting provider notified?: Already Contacted 02/10/21 11:34 Consult Physician Routine Consulting Provider: Britt Schwartz Consult Reason/Comments: placement of oral or nasogastric tube Do you want consulting provider notified?: Yes 02/10/21 12:22 Consult Physician Routine Consulting Provider: Michael Clemons Consult Reason/Comments: for placement of oral or naso gastric tube Do you want consulting provider notified?: Yes Primary care physician: Mauricio Keith MD Hospital Course: Hospital course: 74-year-old patient who follows with Dr. Mauricio Keith. Tonic stable medical conditions include hypertension, Crohn's disease, nephrolithiasis, BPH, hypertension, tinnitus, COPD, CAD with bypass. EF of 20-25%. Presented with shortness of breath. Diagnosed with COVID 19 on January 18 symptoms starting 1 day before. He was found to be hypoxic at home. Upon arrival he was 85%. Patient declined treatment with Remdesivir. Patient had been taking ivermectin as outpatient. She requested this to be continued. This was declined by the admitting team as this was not approved treatment. Patient not vaccinated against COVID. subcu Lovenox and dexamethasone. Patient oxygen saturation slowly Going down. Patient was ultimately intubated." PE confirmed by computed tomography scan. Put on eliquis. Also put on TPN. Developed hematuria. Also developed right-sided pneumothorax and had a chest tube placed. Also atrial fibrillation. 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 Patient continued to do well. Was extubated on February 15. Today: Family members the bedside. Patient on morphine drip. Appears comfortable. Late in the afternoon patient Consultation: Dr. Kuhn in part this from pulmonary Nephrology Dr. Matamoros On examination: VITAL SIGNS: Afebrile, 64, 19, 100/59, 97% on BiPAP GENERAL APPEARANCE: , Lethargic right-sided chest tube. Slight orange urine in the Mary catheter: RESPIRATORY: Respiratory effort increased. PSYCHIATRY: Unable to assess, lethargic Rest of the exam per pulmonary and nursing INVESTIGATIONS, reviewed in the clinical context: February 11: Chest x-ray shows right-sided pneumothorax Doppler ultrasound [February 05] DVT in the left popliteal vein and right lower extremity superficial vein Chest CT angiogram for PE [January 30] new Pasia occlusive embolism segmental bronchus right lower lobe with segmental extension. Doppler ultrasound [January 29]: Superficial thrombosis in the right lesser saphenous vein. January 26: White count 11.8 hemoglobin 11.5 d-dimer 12.6 CRP 7.3 White count 5.9 hemoglobin 12.3 platelets 162 d-dimer 0.93 potassium 4.1 creatinine 0.86 CRP 4.4 Admission labs: Pro-calcitonin 0.04 Coronavirus [PCR]: Detected D-dimer 0.83 EKG tracing personally reviewed by me-sinus bradycardia. Rate 55 Chest x-ray: biLateral infiltrates Cause of : COVID 19 pneumonitis Assessment and plan: -Bilateral COVID 19 pneumonitis: Not improving Dexamethasone. Subcu Lovenox. (declined Remdesivir. patient was taking ivermectin at home). Baricitinib given -Spontaneous right-sided pneumothorax on February 11 Right-sided chest tube -Acute severe hematuria.: Improving Follow H&H. Urology consulted -Acute pulmonary embolism, along with DVT: Lovenox subcu -Septic shock:better Received IV levo fed -Acute hypoxic respiratory failure from COVID 19: Not improving Intubated February 02. Extubated February 15. On BiPAP. -Essential hypertension: Currently blood pressure is running low -Chronic Crohn's disease Pentasa 1000 milligrams 3 times a day - nephrolithiasis Follow clinically -Acute kidney injury. Possibly ATN from COVID 19 causing infection and hypotension: Slow to respond Follow nephrology -Paroxysmal atrial fibrillation with episodes of rapid ventricular rate: Currently sinus rhythm Amiodarone -BPH Flomax 0.4 mg twice a day -COPD in a previous smoker Pulmicort -Chronic tinnitus with hearing impairment -CAD with bypass Aspirin, beta billy, Lipitor -Hyperlipidemia Lipitor 40 mg daily -Acute hepatitis: Improving hold Lipitor. Follow LFT -Full code -TPN Disposition: Patient Plan - Discharge Summary Discharge Rx Participant: No New Discharge Prescriptions: No Action Multivitamin [Men's Multi-Vitamin] 1 tab PO DAILY Cyanocobalamin (Vitamin B-12) [Vitamin B-12] 4,000 mcg PO DAILY Aspirin 81 mg PO DAILY #30 chew Atorvastatin [Lipitor] 40 mg PO DAILY #30 tab Metoprolol Tartrate [Lopressor] 25 mg PO BID #60 tab Sildenafil Citrate [Sildenafil] 20 mg PO DAILY PRN PRN Reason: PULMONARY HYPERTENSION Mesalamine [Pentasa] 1,000 mg PO TID hydrALAZINE HCL [Apresoline] 25 mg PO BID Tamsulosin [Flomax] 0.4 mg PO BID Doxycycline [Vibramycin] 100 mg PO BID Budesonide [Pulmicort] 0.5 mg INHALATION RT-BID Aspirin 325 mg PO Q6H PRN PRN Reason: Pain Or Fever > 100.5 metroNIDAZOLE 1% GEL [Metrogel 1%] 1 applic TOPICAL BID Cholecalciferol [Vitamin D3 (25 Mcg = 1000 Iu)] 50 mcg PO DAILY Zinc Gummy 1 tab PO HS Quercetin With Bromelain 1 tab PO HS Ascorbic Acid [Vitamin C] 2,000 mg PO DAILY predniSONE [Deltasone] 20 mg PO BID Ivermectin [Stromectol] 18 mg PO DAILY Discharge Medication List Cyanocobalamin (Vitamin B-12) [Vitamin B-12] 4,000 mcg PO DAILY 06/01/17 [History] Multivitamin [Men's Multi-Vitamin] 1 tab PO DAILY 06/01/17 [History] Aspirin 81 mg PO DAILY #30 chew 06/18/17 [Rx] Atorvastatin [Lipitor] 40 mg PO DAILY #30 tab 06/18/17 [Rx] Metoprolol Tartrate [Lopressor] 25 mg PO BID #60 tab 06/18/17 [Rx] Sildenafil Citrate [Sildenafil] 20 mg PO DAILY PRN 06/11/18 [History] Ascorbic Acid [Vitamin C] 2,000 mg PO DAILY 01/23/21 [History] Aspirin 325 mg PO Q6H PRN 01/23/21 [History] Budesonide [Pulmicort] 0.5 mg INHALATION RT-BID 01/23/21 [History] Cholecalciferol [Vitamin D3 (25 Mcg = 1000 Iu)] 50 mcg PO DAILY 01/23/21 [History] Doxycycline [Vibramycin] 100 mg PO BID 01/23/21 [History] Ivermectin [Stromectol] 18 mg PO DAILY 01/23/21 [History] Mesalamine [Pentasa] 1,000 mg PO TID 01/23/21 [History] Quercetin With Bromelain 1 tab PO HS 01/23/21 [History] Tamsulosin [Flomax] 0.4 mg PO BID 01/23/21 [History] Zinc Gummy 1 tab PO HS 01/23/21 [History] hydrALAZINE HCL [Apresoline] 25 mg PO BID 01/23/21 [History] metroNIDAZOLE 1% GEL [Metrogel 1%] 1 applic TOPICAL BID 01/23/21 [History] predniSONE [Deltasone] 20 mg PO BID 01/23/21 [History] Follow up Appointment(s)/Referral(s): Mauricio Keith MD [Primary Care Provider] - 1-2 days William Mckeon MD [STAFF PHYSICIAN] - 1 Week (you will need outpatient cystoscopy and a CT urogram)
[2021-02-16 14:52] VITALS: PULSE 0; RESP 0
== END 2021-02-16 15:18 | disposition expired | DRG 207 ==
LOC: EC 05:51 → 4SSUR 07:52 → 1SOBS 16:42 → 4SSUR 01-24 18:36 → 2SICU 02-02 18:33
PROVIDERS: ADMIT Hospitalist; ATTEND Hospitalist
PROC: 3E0333Z Introduction of Anti-inflammatory into Peripheral Vein, Percutaneous Approach (ICD-10-PCS; 2021-01-23)
PROC: XW0DXM6 Introduction of Baricitinib into Mouth and Pharynx, External Approach, New Technology Group 6 (ICD-10-PCS; 2021-01-28)
PROC: 5A0945A Assistance with Respiratory Ventilation, 24-96 Consecutive Hours, High Flow/Velocity Cannula (ICD-10-PCS; 2021-01-28)
PROC: 5A09557 Assistance with Respiratory Ventilation, Greater than 96 Consecutive Hours, Continuous Positive Airway Pressure (ICD-10-PCS; 2021-01-29)
PROC: 5A1955Z Respiratory Ventilation, Greater than 96 Consecutive Hours (ICD-10-PCS; principal; 2021-02-02)
PROC: 0BH17EZ Insertion of Endotracheal Airway into Trachea, Via Natural or Artificial Opening (ICD-10-PCS; 2021-02-02)
PROC: 3E033XZ Introduction of Vasopressor into Peripheral Vein, Percutaneous Approach (ICD-10-PCS; 2021-02-02)
PROC: 0DH67UZ Insertion of Feeding Device into Stomach, Via Natural or Artificial Opening (ICD-10-PCS; 2021-02-02)
PROC: 03HY32Z Insertion of Monitoring Device into Upper Artery, Percutaneous Approach (ICD-10-PCS; 2021-02-03)
PROC: 4A133B1 Monitoring of Arterial Pressure, Peripheral, Percutaneous Approach (ICD-10-PCS; 2021-02-03)
PROC: 4A133J1 Monitoring of Arterial Pulse, Peripheral, Percutaneous Approach (ICD-10-PCS; 2021-02-03)
PROC: 02HV33Z Insertion of Infusion Device into Superior Vena Cava, Percutaneous Approach (ICD-10-PCS; 2021-02-03)
PROC: 03HY32Z Insertion of Monitoring Device into Upper Artery, Percutaneous Approach (ICD-10-PCS; 2021-02-10)
PROC: 4A133B1 Monitoring of Arterial Pressure, Peripheral, Percutaneous Approach (ICD-10-PCS; 2021-02-10)
PROC: 4A133J1 Monitoring of Arterial Pulse, Peripheral, Percutaneous Approach (ICD-10-PCS; 2021-02-10)
PROC: 0W9930Z Drainage of Right Pleural Cavity with Drainage Device, Percutaneous Approach (ICD-10-PCS; 2021-02-11)
DX: U07.1 COVID-19 (principal); J12.82 Pneumonia due to coronavirus disease 2019; A41.89 Other specified sepsis; I26.99 Other pulmonary embolism without acute cor pulmonale; J93.0 Spontaneous tension pneumothorax; N17.0 Acute kidney failure with tubular necrosis; R65.21 Severe sepsis with septic shock; J80 Acute respiratory distress syndrome; B17.9 Acute viral hepatitis, unspecified; D62 Acute posthemorrhagic anemia; D68.9 Coagulation defect, unspecified; E46 Unspecified protein-calorie malnutrition; E87.0 Hyperosmolality and hypernatremia; E87.1 Hypo-osmolality and hyponatremia; E87.4 Mixed disorder of acid-base balance; I50.22 Chronic systolic (congestive) heart failure; I82.403 Acute embolism and thrombosis of unspecified deep veins of lower extremity, bilateral; Z66 Do not resuscitate; I82.432 Acute embolism and thrombosis of left popliteal vein; J44.0 Chronic obstructive pulmonary disease with (acute) lower respiratory infection; J93.82 Other air leak; J98.11 Atelectasis; K50.90 Crohn's disease, unspecified, without complications; N30.01 Acute cystitis with hematuria; Z99.11 Dependence on respirator [ventilator] status; D70.9 Neutropenia, unspecified; Z68.20 Body mass index [BMI] 20.0-20.9, adult; E78.5 Hyperlipidemia, unspecified; E86.1 Hypovolemia; E87.5 Hyperkalemia; H91.90 Unspecified hearing loss, unspecified ear; H93.19 Tinnitus, unspecified ear; I25.10 Atherosclerotic heart disease of native coronary artery without angina pectoris; I25.5 Ischemic cardiomyopathy; I11.0 Hypertensive heart disease with heart failure; I48.0 Paroxysmal atrial fibrillation; J43.9 Emphysema, unspecified; K22.2 Esophageal obstruction; N20.0 Calculus of kidney; N40.0 Benign prostatic hyperplasia without lower urinary tract symptoms; T50.2X5A Adverse effect of carbonic-anhydrase inhibitors, benzothiadiazides and other diuretics, initial encounter; Z79.01 Long term (current) use of anticoagulants; Z79.52 Long term (current) use of systemic steroids; Z79.82 Long term (current) use of aspirin; Z79.899 Other long term (current) drug therapy; Z80.42 Family history of malignant neoplasm of prostate; Z82.3 Family history of stroke; Z82.49 Family history of ischemic heart disease and other diseases of the circulatory system; Z86.711 Personal history of pulmonary embolism; Z87.442 Personal history of urinary calculi; Z87.891 Personal history of nicotine dependence; Z93.1 Gastrostomy status; Z95.1 Presence of aortocoronary bypass graft; Z95.2 Presence of prosthetic heart valve
CPT/HCPCS: 36415; 36600; 71045; 71046; 71275; 80048; 80053; 81003; 82330; 82728; 82805; 83605; 83615; 83735; 84100; 84145; 84450; 84460; 84478; 85025; 85027; 85379; 85610; 85730; 86140; 86850; 86900; 86901; 86920; 87070; 87205; 87635; 93005; 93970; 94002; 94003; 94640; 94660; 94760; 96374; 99285